=== PATIENT | male | born 1935 | race Caucasian/White ===

== ENCOUNTER 2018-10-09 16:12 | Inpatient (IN) | payer MEDICARE, MEDICAID ==
[~2018-10-09] VITALS: Ht 157.5 cm; Wt 93.0 kg
[2018-10-09 20:00] VITALS: BP 107/72
--- NOTE | 2018-10-09 20:00 | NUR ---
NURSE NOTES: Pt arrived via ACLS[facility]BLS ambulance from [facility]. Pt is awake, AOx4. In no acute distress. Pt is being admitted for hypoglycemia and AMS. VS stable. Placed on threat monitoring analyst which shows NSR. Denies any pain or discomfort at this time. Oriented pt to room and unit. Bed in lowest position. Call light within reach. Will notify MD for admission orders.
[2018-10-09] MEDS ORDERED: ASPIR 8181 MG ORAL (21:10)
[2018-10-09] MEDS ORDERED: calcium (21:10)
[2018-10-09] MEDS ORDERED: DOCUSATE SODIU100 MG ORAL (21:10)
[2018-10-09] MEDS ORDERED: DEXILANT30 MG ORAL (21:10)
[2018-10-09] MEDS ORDERED: LISINOPRIL2.5 MG ORAL (21:10)
[2018-10-09] MEDS ORDERED: SIMVASTATIN20 MG ORAL (21:10)
[2018-10-09] MEDS ORDERED: METOLAZONE5 MG PO (21:10)
[2018-10-09] MEDS ORDERED: FUROSEMIDE80 M1 ORAL (21:10)
[2018-10-09] MEDS ORDERED: CLOPIDOGREL75 MG ORAL (21:10)
[2018-10-09] MEDS ORDERED: CALCIUM OYSTER PO (21:10)
[2018-10-09] MEDS ORDERED: LUMIGAN2.5 ML BOTH EYES (21:10)
[2018-10-09] MEDS ORDERED: Norco 5mg/325mg tab ORAL PRN (22:45)
[2018-10-09] MEDS ORDERED: Albuterol/Ipratropium 3ml neb HHN SCH (23:00)
[2018-10-09] MEDS ORDERED: Albuterol/Ipratropium 3ml neb HHN PRN (23:15)
[2018-10-09] MEDS: Furosemide 80mg tab ORAL SCH (23:38)
[2018-10-10] VITALS: BP 101/55
[2018-10-10 04:00] VITALS: BP 105/69
[2018-10-10] MEDS: NovoLOG Insulin Flexpen SUBQ SCH ×4 (07:19→21:00)
--- NOTE | 2018-10-10 07:19 | NUR ---
NURSE NOTES: Checked blood glucose with AM nurse, result was "Critically Low", checked again with same glucometer with same result. Gave D50% as ordered. Pt is awake, AOx4. Asymptomatic. AM nurse will notify MD. Will continue to monitor.
--- NOTE | 2018-10-10 07:20 | NUR ---
HAND-OFF: Report given to JACQUI Vicente.
[2018-10-10 07:49] LABS: BASOPHILS % (AUTO) 0.8 % (0.0-2.0); EOSINOPHILS % (AUTO) 0.6 % (0.0-3.0); HEMATOCRIT 32.5 % (42.0-52.0); HEMOGLOBIN 9.9 G/DL (14.2-18.0); LYMPHOCYTES % (AUTO) 20.9 % (20.0-45.0); MEAN CORPUSCULAR VOLUME 85 FL (80-99); NEUTROPHILS % (AUTO) 68.7 % (45.0-75.0); PLATELET COUNT 446 K/UL (150-450); RED BLOOD COUNT 3.82 M/UL (4.70-6.10); RED CELL DISTRIBUTION WIDTH 19.4 % (11.6-14.8); WHITE BLOOD COUNT 7.7 K/UL (4.8-10.8)
[2018-10-10 08:00] VITALS: BP 112/47
[2018-10-10 08:00] LABS: ANION GAP 9 mmol/L (5-15); BLOOD UREA NITROGEN 67 mg/dL (7-18); CALCIUM 8.9 MG/DL (8.5-10.1); CARBON DIOXIDE 27 MMOL/L (21-32); CHLORIDE 99 MMOL/L (98-107); CREATININE 2.2 MG/DL (0.55-1.30); PHOSPHORUS 4.8 MG/DL (2.5-4.9); POTASSIUM 3.8 MMOL/L (3.5-5.1); SODIUM 135 MMOL/L (136-145)
--- NOTE | 2018-10-10 08:09 | NUR ---
NURSE NOTES: attending Physician changed to dr heidi Ellsworth aware.
--- NOTE | 2018-10-10 08:10 | NUR ---
NURSE NOTES: Received report from JACQUI Stewart. Patient in bed resting, no active cardiac, respiratory distress noticed at this time. BS checked on bedside. Critically low, dextrose 50ml given. Patient asymptomatic, alert, orient x4. SR with 1st degress HB, BBB. IV site asymptomatic , patent, intact. Bed in lowest position, side rails up x2, call light within reach. Will continue to monitor.
[2018-10-10] MEDS: Aspirin EC 81mg tab ORAL SCH (08:34)
[2018-10-10] MEDS: Tums 500mg ORAL SCH ×2 (08:34→18:36)
[2018-10-10] MEDS: Docusate 100mg cap ORAL SCH ×2 (08:34→18:37)
[2018-10-10] MEDS: Heparin 5000 units/ml inj SUBQ SCH ×2 (08:36→20:33)
[2018-10-10] MEDS: Lisinopril 2.5mg tab ORAL SCH (08:37)
--- NOTE | 2018-10-10 08:50 | NUR ---
NURSE NOTES: Dr. Ellsworth made aware patient BS critically low at 0730 and 50 ml of dextrose given. Per Dr. Ellsworth, D10 at 40ml/hr. Order noted, entered, and carried out. Dr. Hastings made aware BS at 0730 was critically low and 50 ml of dextrose given, random glucose result 32, BS at 0850 was 117. D10 at 40ml/hr is administered. Dr. Ellsworth and Dr. Key made aware troponin level 10/10/18 is 0.077. No order given at this time. Will continue to monitor.
[2018-10-10] MEDS ORDERED: Dextrose 10% 1,000 ML IV SCH (09:00)
[2018-10-10] MEDS: Furosemide 80mg tab ORAL SCH ×2 (09:00→18:39)
--- NOTE | 2018-10-10 09:00 | NUR ---
NURSE NOTES: Per Dr. Key do not administer diabetic medication . Order noted, carried out. Will continue to monitor.
--- NOTE | 2018-10-10 10:24 | Diagnostic Imaging Report ---
EXAM: XR Chest, 1 View CLINICAL HISTORY: SOB TECHNIQUE: Frontal view of the chest. COMPARISON: No relevant prior studies available. FINDINGS: Lungs: Hypoventilatory lungs. Mild vascular congestion. Bibasilar lung atelectasis/airspace disease. Pleural space: Small bilateral pleural effusions. No pneumothorax. Heart: Mild cardiomegaly. Mediastinum: Unremarkable. Bones/joints: Unremarkable. IMPRESSION: 1. Hypoventilatory lungs. Mild vascular congestion. Bibasilar lung atelectasis/airspace disease. 2. Small bilateral pleural effusions. 3. Likely mild CHF.
--- NOTE | 2018-10-10 10:39 | Cardiology Progress Note ---
Assessment/Plan Assessment/Plan appears to have been taking amaryl but now sudden decrease in bs will keep off amaryl endocrine to see tomorrow accucheck q4h hypoglycemia protochol other meds will be continued will dc metolazone i doubt minor trop is of any major issue recent office echo last week mod to sever mr , mod tr amd ef 40% ekg not changed form priror will consider mri of brain a isaias face looks more abn than usual mri of brain as hji face look more asymmetric than ususll [id number] Objective Last 24 Hour Vital Signs Date Time Temp Pulse Resp B/P (MAP) Pulse Ox O2 Delivery O2 Flow Rate FiO2 10/10/18 08:37 117/47 10/10/18 07:59 88 18 Nasal Cannula 2.0 28 10/10/18 04:00 87 10/10/18 04:00 98.0 87 17 105/69 (81) 98 10/10/18 01:37 92 18 98 Nasal Cannula 2.0 28 10/10/18 01:32 91 18 Nasal Cannula 2.0 28 10/10/18 01:29 91 18 93 Nasal Cannula 2.0 28 10/10/18 00:00 96 10/10/18 00:00 97.0 96 17 101/55 (70) 98 10/09/18 20:04 92 10/09/18 20:00 97.8 92 17 107/72 (84) 96 10/09/18 20:00 Nasal Cannula 3.0 Intake and Output 10/09/18 10/10/18 18:59 06:59 Output Total 300 ml Balance -300 ml Output Urine Total 300 ml Laboratory Tests Test 10/10/18 06:55 White Blood Count 7.7 K/UL (4.8-10.8) Red Blood Count 3.82 M/UL (4.70-6.10) L Hemoglobin 9.9 G/DL (14.2-18.0) L Hematocrit 32.5 % (42.0-52.0) L Mean Corpuscular Volume 85 FL (80-99) Mean Corpuscular Hemoglobin 26.0 PG (27.0-31.0) L Mean Corpuscular Hemoglobin Concent 30.6 G/DL (32.0-36.0) L Red Cell Distribution Width 19.4 % (11.6-14.8) H Platelet Count 446 K/UL (150-450) Mean Platelet Volume 5.1 FL (6.5-10.1) L Neutrophils (%) (Auto) 68.7 % (45.0-75.0) Lymphocytes (%) (Auto) 20.9 % (20.0-45.0) Monocytes (%) (Auto) 9.0 % (1.0-10.0) Eosinophils (%) (Auto) 0.6 % (0.0-3.0) Basophils (%) (Auto) 0.8 % (0.0-2.0) Sodium Level 135 MMOL/L (136-145) L Potassium Level 3.8 MMOL/L (3.5-5.1) Chloride Level 99 MMOL/L (98-107) Carbon Dioxide Level 27 MMOL/L (21-32) Anion Gap 9 mmol/L (5-15) Blood Urea Nitrogen 67 mg/dL (7-18) H Creatinine 2.2 MG/DL (0.55-1.30) H Estimat Glomerular Filtration Rate mL/min (>60) Glucose Level 32 MG/DL (74-106) *L Calcium Level 8.9 MG/DL (8.5-10.1) Phosphorus Level 4.8 MG/DL (2.5-4.9) Magnesium Level 2.3 MG/DL (1.8-2.4) Troponin I 0.077 ng/mL (0.000-0.056) Dg Key MD Oct 10, 2018 10:39
--- NOTE | 2018-10-10 11:32 | General Progress Note ---
Assessment/Plan Problem List: (1) CKD (chronic kidney disease) ICD Codes: N18.9 - Chronic kidney disease, unspecified SNOMED: 909180469 (2) Hypoglycemia ICD Codes: E16.2 - Hypoglycemia, unspecified SNOMED: 151743327 (3) Altered mental status ICD Codes: R41.82 - Altered mental status, unspecified SNOMED: 096044943 Assessment/Plan hypoglycemia is due to Amaryl - its half life being prolonged due to CKD continue IV dextrose until BG reaches > 200 then stop discontinue Amaryl and do not resume as OP consider Januvia 25 mg daily for DM management as OP ( do not start until hypoglycemia is completely resolved) Subjective Allergies: Coded Allergies: PENICILLINS (Verified Allergy, Unknown, 10/09/18) All Systems: reviewed and negative except above Subjective pleasant man presented to [facility] with severe hypoglycemia his diabetic and taking Amaryl 2 mg daily transferred to [facility] and currently being treated with D10 at 40 / hour Cr is elevated at 2.2 Objective Last 24 Hour Vital Signs Date Time Temp Pulse Resp B/P (MAP) Pulse Ox O2 Delivery O2 Flow Rate FiO2 10/10/18 09:00 Nasal Cannula 2.0 10/10/18 08:37 117/47 10/10/18 08:00 98.1 88 20 112/47 (68) 99 10/10/18 07:59 88 18 Nasal Cannula 2.0 28 10/10/18 04:00 87 10/10/18 04:00 98.0 87 17 105/69 (81) 98 10/10/18 01:37 92 18 98 Nasal Cannula 2.0 28 10/10/18 01:32 91 18 Nasal Cannula 2.0 28 10/10/18 01:29 91 18 93 Nasal Cannula 2.0 28 10/10/18 00:00 96 10/10/18 00:00 97.0 96 17 101/55 (70) 98 10/09/18 20:04 92 10/09/18 20:00 97.8 92 17 107/72 (84) 96 10/09/18 20:00 Nasal Cannula 3.0 Intake and Output 10/09/18 10/10/18 18:59 06:59 Output Total 300 ml Balance -300 ml Output Urine Total 300 ml Laboratory Tests 10/10/18 06:55: White Blood Count 7.7, Red Blood Count 3.82L, Hemoglobin 9.9L, Hematocrit 32.5L , Mean Corpuscular Volume 85, Mean Corpuscular Hemoglobin 26.0L, Mean Corpuscular Hemoglobin Concent 30.6L, Red Cell Distribution Width 19.4H, Platelet Count 446, Mean Platelet Volume 5.1L, Neutrophils (%) (Auto) 68.7, Lymphocytes (%) (Auto) 20.9, Monocytes (%) (Auto) 9.0, Eosinophils (%) (Auto) 0.6, Basophils (%) (Auto) 0.8, Sodium Level 135L, Potassium Level 3.8, Chloride Level 99, Carbon Dioxide Level 27, Anion Gap 9, Blood Urea Nitrogen 67H, Creatinine 2.2H, Estimat Glomerular Filtration Rate , Glucose Level 32*L, Calcium Level 8.9, Phosphorus Level 4.8, Magnesium Level 2.3, Troponin I 0.077H Height (Feet): 5 Height (Inches): 2.00 Weight (Pounds): 148 General Appearance: no apparent distress Neck: normal alignment Cardiovascular: normal rate Respiratory/Chest: no respiratory distress Abdomen: normal bowel sounds Objective Current Medications Medications (Trade) Dose Ordered Sig/Ashely Route PRN Reason Start Time Stop Time Status Last Admin Dose Admin Acetaminophen (Tylenol) 650 mg Q6H PRN ORAL Mild Pain/Temp > 100.5 10/09/18 22:45 11/08/18 22:44 Acetaminophen/ Hydrocodone Bitart ([place] 5/325) 1 tab Q6H PRN ORAL Moderate Pain (Pain Scale 4-6) 10/09/18 22:45 10/16/18 22:44 Albuterol/ Ipratropium (Albuterol/ Ipratropium) 3 ml Q4HRT PRN HHN Shortness of breath 10/09/18 23:15 10/14/18 22:59 10/10/18 01:29 Aspirin (Ecotrin) 81 mg DAILY ORAL 10/10/18 09:00 11/09/18 08:59 10/10/18 08:34 Atorvastatin Calcium (Lipitor) 40 mg BEDTIME ORAL 10/10/18 21:00 11/09/18 20:59 Calcium Carbonate (Tums) 500 mg BID ORAL 10/10/18 09:00 11/09/18 08:59 10/10/18 08:34 Clopidogrel Bisulfate (Plavix) 75 mg DAILY ORAL 10/10/18 09:00 11/09/18 08:59 10/10/18 08:34 Dextrose 1,000 ml @ 40 mls/hr Q24H IV 10/10/18 09:00 11/09/18 08:59 10/10/18 08:25 Dextrose (Dextrose 50%) 25 ml Q30M PRN IV Hypoglycemia 10/09/18 22:45 11/08/18 22:44 10/10/18 04:21 Dextrose (Dextrose 50%) 50 ml Q30M PRN IV Hypoglycemia 10/09/18 22:45 11/08/18 22:44 10/10/18 07:09 Docusate Sodium (Colace) 100 mg TWICE A DAY ORAL 10/10/18 09:00 11/09/18 08:59 10/10/18 08:34 Furosemide (Lasix) 80 mg BID ORAL 10/10/18 18:00 11/08/18 22:44 Heparin Sodium (Porcine) (Heparin 5000 units/ml) 5,000 units Q12HR SUBQ 10/10/18 09:00 11/09/18 08:59 10/10/18 08:36 Insulin Aspart (NovoLOG) BEFORE MEALS AND HS SUBQ 10/10/18 06:30 11/09/18 06:29 Lisinopril (Zestril) 2.5 mg DAILY ORAL 10/10/18 09:00 11/09/18 08:59 10/10/18 08:37 Lisinopril (Zestril) 2.5 mg DAILY ORAL 10/11/18 09:00 11/10/18 08:59 Metolazone (Zaroxolyn) 5 mg MoWeFr@0900 ORAL 10/11/18 09:00 11/10/18 08:59 Non-Formulary Medication (Non-Formulary Med) 1 ea DAILY ORAL 10/10/18 09:00 11/09/18 08:59 UNV Pantoprazole (Protonix) 40 mg DAILY ORAL 10/10/18 09:00 11/09/18 08:59 10/10/18 08:34 Pantoprazole (Protonix) 40 mg DAILY ORAL 10/11/18 09:00 11/10/18 08:59 Item Value Date Time Bedside Blood Glucose 73 mg/dl 2/3/19 1120 Bedside Blood Glucose Critically Low Result 10/10/18 0719 Bedside Blood Glucose 94 mg/dl 10/10/18 0430 Bedside Blood Glucose 112 mg/dl 10/10/18 0030 Bedside Blood Glucose 81 mg/dl 10/09/181999 Barry Schmitt MD Oct 10, 2018 11:32
[2018-10-10 12:00] VITALS: BP 101/54
--- NOTE | 2018-10-10 12:34 | NUR ---
NURSE NOTES: Dr. Key made aware troponin level 0.088. No order given yet. Will continue to monitor.
[2018-10-10 16:00] VITALS: BP 99/45
--- NOTE | 2018-10-10 16:40 | NUR ---
NURSE NOTES: Dr. Key made aware patient's BS at 1600 was critically low, dextrose 50mL given. BS at 1630 was 110. No order given at this time. Will continue to monitor. Patient AO x4, stated dull headache. Will continue to monitor.
--- NOTE | 2018-10-10 19:33 | NUR ---
HAND-OFF: Report given to JACQUI Stewart.
--- NOTE | 2018-10-10 19:34 | NUR ---
NURSE NOTES: Received report from JACQUI Vicente. Pt is awake and resting in bed. In no acute distress. IV line intact and patent. Bed in lowest position, call light within reach. Will continue plan of care.
[2018-10-10 20:00] VITALS: BP 100/49
[2018-10-10] MEDS ORDERED: Atorvastatin 20mg tab ORAL SCH (21:00)
--- NOTE | 2018-10-10 21:49 | NUR ---
NURSE NOTES: Checked Blood glucose at 1999, result was "Critically low". Rechecked with same glucometer with same result. Pt is AOx4, verbally responsive. Pt is complaining of lightheadedness. Gave D50% 50 ml as ordered. Rechecked after 15 minutes, result was 107. Pt states he "feels better". Dr. Schmitt notified. Will continue to monitor.
--- NOTE | 2018-10-10 23:30 | History and Physical Report ---
DATE OF ADMISSION: 10/09/2018 CARDIOLOGY EVALUATION ADMITTING PHYSICIAN: Dg Key M.D. REASON FOR ADMISSION: Coronary artery disease and abnormal cardiac enzymes. HISTORY OF PRESENT ILLNESS: This is an elderly gentleman, who is known to me from prior hospitalizations and office visits. The patient was seen last week for followup, was noted to have some evidence of an upper respiratory tract infection, although he has been in congestive heart failure, diabetic doses were adjusted and I got a call from the patient's yesterday that the patient was not doing well. I asked her to call the paramedics. The paramedics were summoned. They apparently found the patient to be low on sugar, IV access was not able to be established. Glucagon was administered and the patient was transported to the emergency room at [facility]. In the emergency room when I talked on two different occasions, the patient's blood sugar did improve and mentation did improve. The patient required further hospitalization and was transferred to [facility] for further evaluation and stabilization. He is really feeling fine this morning. He does not have any pain, pressure, or shortness of breath. He really wants to go home. He does admit to taking diabetic medication, which as I recall stopped on a prior occasion, but he continues to take 2 mg of on a daily basis. He tells me that a few nights ago, in the middle of night, he became sort of all sweaty likely because of hypoglycemia and his mentation was rather abnormal yesterday and that he was not walking correctly. He denies any chest pain or pressure. There is no PND. He is now laid back in bed, uses 1-1/2 pillows to sleep with. There is no orthopnea. There is no dizziness on standing. No heart pounding or palpitation. No pain, pressure, tightness, or heaviness in his chest either. PAST MEDICAL HISTORY: Extensive, he does have a history of hypertension, diabetes mellitus, prostate cancer, peripheral neuropathy, peripheral vascular disease, hyperlipidemia, aortic valve stenosis, claudication, B12 deficiency, vitamin D deficiency, cholecystitis, status post cholecystectomy, osteopenia, coronary artery disease with history of percutaneous coronary interventions, congestive heart failure, peripheral edema, diastolic heart failure, mitral regurgitation and in April 2016, he underwent a percutaneous coronary intervention and he has history of hypoalbuminemia, bilateral effusions. At that time, he had PCI to mid LAD, was noted to have no significant disease in the circumflex. No significant disease in the proximal, ostial RCA at that time. 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 FAMILY HISTORY: Negative. SOCIAL HISTORY: Never smoked. Never drank alcoholic beverages. 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 ALLERGIES: Penicillin. REVIEW OF SYSTEMS: GASTROINTESTINAL: Negative. GENITOURINARY: He denies. PULMONARY: He did have a cough last week and that seems to have resolved he thinks. CONSTITUTIONAL: No fevers or chills. He did have diaphoresis few nights ago, as mentioned. NEUROLOGIC: The patient has some dizziness that he does feel with his eyes, possibly turning towards the right all the time. MEDICATIONS: His medications that I have listed as of his office visit last week, aspirin 81 mg, Plavix 75 mg, Colace, Lumigan eye drops, Micro-K 40 tablets daily, Dexilant 60 mg daily, calcium 500 mg twice daily, metolazone 5 mg three times a week, 80 of Lasix twice a day, lisinopril 2.5 mg, and Lipitor 40 mg. PHYSICAL EXAMINATION: GENERAL: Shows to be an elderly gentleman, in no respiratory distress. He does have some facial asymmetry. HEENT: the patient has eye issue that he has had before, although I think that it maybe a little bit more than usual. LUNGS: Clear to auscultation and percussion. NECK: Supple. CARDIAC: Regular rate and rhythm. No heaves, thrills, or gallops noted. ABDOMEN: Soft, nontender. Positive bowel sounds. EXTREMITIES: There is trace edema of the lower extremities. NEUROLOGIC: He is awake, alert, responsive, and in no apparent respiratory distress. LABORATORY VALUES: Unfortunately [facility] laboratory results, I am unable to locate all of them and he did have some elements of hypotension on review of the data from [place] with blood pressure 90/41. At this point labs, his ALT of 54, AST of 97, creatinine of 1.96, his potassium of 3.9, bicarb of 21, blood sugar was 150, and BUN 63. The pH is 7.35, pCO2 of 41, pO2 of 62, and bicarbonate of 22. Chest x-ray was done, results not available. White count was 6.5, hemoglobin 11.4, and platelet count of 546. His repeat blood sugar is 142 to 191. An EKG showed sinus rhythm, right bundle-branch conduction with first-degree AV block, left posterior fascicular block being noted. His laboratories here white count 7.7, hemoglobin 9.9, and platelet count of 446. Sodium is 135, potassium 3.8, chloride 99, bicarbonate 27, BUN 67, creatinine 2.2, glucose 132 this morning. The troponin I of 0.077. ASSESSMENT AND PLAN: 1. Hypoglycemia secondary to medication. 2. Diabetes mellitus previously. 3. Coronary artery disease. 4. History of ischemic cardiomyopathy with ejection fraction of 40%. 5. Mitral regurgitation, [id number] degree on recent echocardiogram last week. 6. Moderate tricuspid regurgitation. 7. Mild pulmonary hypertension with 43 through 48. 8. Pleural effusions history. 9. Abnormal gastric endoscopy, suspicious for malignancy with submucosal resection. 10. Aortic stenosis. 11. Hyperlipidemia. 12. Prostate cancer. 13. Abnormal facial asymmetry. This patient was seen in cardiac consultation. The patient's abnormal troponin is of questionable significance in light of the fact that he has some renal insufficiency. His EKG does not appear to be changed. He has been started back on his metolazone last week because of his possible exacerbation of congestive heart failure, upper respiratory tract infection. Initially, when he presented to [place], he told me that he was not taking any diabetic medications and does not recall. I have taken him off of diabetic medication because blood sugars were okay and he seems to be back on it not part of this that you gave me in the office. Nevertheless, his diabetic medication will be on hold, Endocrine evaluation is pending to evaluate the etiology of decrease in his blood sugars despite the fact that he has been not taking diabetic medication for himself for a while. His aspirin and Plavix will be continued as well as his Lasix, lisinopril, and Lipitor. I will follow the patient along. Hopefully, he will be able to go home soon. In light of the fact that the patient's facial asymmetry appears more abnormal than before, I would consider an MRI of the brain as well. Dg Key M.D. DR: QUINTIN JOB#: [id number] CC: ALEJANDRO
[2018-10-11] VITALS (10 sets, daily range): BP systolic 62–107; BP diastolic 32–58
--- NOTE | 2018-10-11 00:30 | NUR ---
NURSE NOTES: Checked Blood glucose at 0000, result was 51. Rechecked with same glucometer, result was 55. Pt is AOx4, verbally responsive. Pt is complaining of lightheadedness. Gave D50% 50 ml as ordered. Rechecked after 15 minutes, result was 119. Will notify
--- NOTE | 2018-10-11 04:30 | NUR ---
NURSE NOTES: Checked Blood glucose at 0400, result was 54. Rechecked with same glucometer, result was 55. Pt is AOx4, verbally responsive. Pt is complaining of lightheadedness. Gave D50% 50 ml as ordered. Rechecked after 15 minutes, result was 115. Will notify
[2018-10-11] MEDS: NovoLOG Insulin Flexpen SUBQ SCH ×4 (06:29→21:00)
--- NOTE | 2018-10-11 06:30 | NUR ---
NURSE NOTES: Dr. Schmitt made aware of Pt's continuous episodes of hypoglycemia. New order to increase D10W IV to 40 cc/hr to 60 cc/hr received, read back and carried out. Will continue to monitor.
--- NOTE | 2018-10-11 06:33 | General Progress Note ---
Assessment/Plan Problem List: (1) CKD (chronic kidney disease) ICD Codes: N18.9 - Chronic kidney disease, unspecified SNOMED: 917011715 (2) Hypoglycemia ICD Codes: E16.2 - Hypoglycemia, unspecified SNOMED: 531940839 (3) Altered mental status ICD Codes: R41.82 - Altered mental status, unspecified SNOMED: 579885040 Assessment/Plan hypoglycemia is due to Amaryl - its half life being prolonged due to CKD increase D10 rate to 60 mL/hour - will stop once BG reaches > 200 mg/dL add Octreotide 50 mcg subQ every 8 hours in order to reduce insulin secretion discontinue Amaryl and do not resume as OP consider Januvia 25 mg daily for DM management as OP ( do not start until hypoglycemia is completely resolved) Subjective Allergies: Coded Allergies: PENICILLINS (Verified Allergy, Unknown, 10/09/18) All Systems: reviewed and negative except above Subjective hypoglycemia recurred last night and overnight requiring D50 Objective Last 24 Hour Vital Signs Date Time Temp Pulse Resp B/P (MAP) Pulse Ox O2 Delivery O2 Flow Rate FiO2 10/11/18 04:00 97.1 94 20 98/55 (69) 99 10/11/18 04:00 94 10/11/18 00:00 102 10/11/18 00:00 97.1 102 20 92/48 (63) 99 10/10/18 22:16 Nasal Cannula 2.0 28 10/10/18 22:16 97 Nasal Cannula 2.0 28 10/10/18 22:15 87 18 Nasal Cannula 2.0 28 10/10/18 21:00 Nasal Cannula 2.0 10/10/18 20:00 86 10/10/18 20:00 97.2 86 20 100/49 (66) 99 10/10/18 16:00 98.0 87 21 99/45 (63) 96 10/10/18 16:00 89 10/10/18 12:00 97.7 88 21 101/54 (70) 99 10/10/18 12:00 105 10/10/18 09:00 Nasal Cannula 2.0 10/10/18 08:37 117/47 10/10/18 08:00 98.1 88 20 112/47 (68) 99 10/10/18 08:00 97 10/10/18 07:59 88 18 Nasal Cannula 2.0 28 Intake and Output 10/10/18 10/11/18 19:00 07:00 Intake Total 960 ml 440 ml Output Total 1200 ml 1000 ml Balance -240 ml -560 ml Intake Oral 960 ml IV Total 440 ml Output Urine Total 1200 ml 1000 ml # Voids 3 3 Laboratory Tests 10/10/18 06:55: White Blood Count 7.7, Red Blood Count 3.82L, Hemoglobin 9.9L, Hematocrit 32.5L , Mean Corpuscular Volume 85, Mean Corpuscular Hemoglobin 26.0L, Mean Corpuscular Hemoglobin Concent 30.6L, Red Cell Distribution Width 19.4H, Platelet Count 446, Mean Platelet Volume 5.1L, Neutrophils (%) (Auto) 68.7, Lymphocytes (%) (Auto) 20.9, Monocytes (%) (Auto) 9.0, Eosinophils (%) (Auto) 0.6, Basophils (%) (Auto) 0.8, Sodium Level 135L, Potassium Level 3.8, Chloride Level 99, Carbon Dioxide Level 27, Anion Gap 9, Blood Urea Nitrogen 67H, Creatinine 2.2H, Estimat Glomerular Filtration Rate , Glucose Level 32*L, Calcium Level 8.9, Phosphorus Level 4.8, Magnesium Level 2.3, Troponin I 0.077H 10/10/18 11:20: Troponin I 0.088H 10/10/18 17:15: Glucose Level 52L Height (Feet): 5 Height (Inches): 2.00 Weight (Pounds): 148 General Appearance: no apparent distress Neck: normal alignment Cardiovascular: normal rate Respiratory/Chest: lungs clear Abdomen: normal bowel sounds Pelvis: normal external exam Objective Current Medications Medications (Trade) Dose Ordered Sig/Ashely Route PRN Reason Start Time Stop Time Status Last Admin Dose Admin Acetaminophen (Tylenol) 650 mg Q6H PRN ORAL Mild Pain/Temp > 100.5 10/09/18 22:45 11/08/18 22:44 Acetaminophen/ Hydrocodone Bitart ([place] 5/325) 1 tab Q6H PRN ORAL Moderate Pain (Pain Scale 4-6) 10/09/18 22:45 10/16/18 22:44 Albuterol/ Ipratropium (Albuterol/ Ipratropium) 3 ml Q4HRT PRN HHN Shortness of breath 2/2/19 23:15 10/14/18 22:59 10/10/18 01:29 Aspirin (Ecotrin) 81 mg DAILY ORAL 10/10/18 09:00 11/09/18 08:59 10/10/18 08:34 Atorvastatin Calcium (Lipitor) 40 mg BEDTIME ORAL 10/10/18 21:00 11/09/18 20:59 10/10/18 20:31 Calcium Carbonate (Tums) 500 mg BID ORAL 10/10/18 09:00 11/09/18 08:59 10/10/18 18:36 Clopidogrel Bisulfate (Plavix) 75 mg DAILY ORAL 10/10/18 09:00 11/09/18 08:59 10/10/18 08:34 Dextrose 1,000 ml @ 40 mls/hr Q24H IV 10/10/18 09:00 11/09/18 08:59 10/10/18 08:25 Dextrose (Dextrose 50%) 25 ml Q30M PRN IV Hypoglycemia 10/09/18 22:45 11/08/18 22:44 10/10/18 04:21 Dextrose (Dextrose 50%) 50 ml Q30M PRN IV Hypoglycemia 10/09/18 22:45 11/08/18 22:44 10/11/18 04:04 Docusate Sodium (Colace) 100 mg TWICE A DAY ORAL 10/10/18 09:00 11/09/18 08:59 10/10/18 18:37 Furosemide (Lasix) 80 mg BID ORAL 10/10/18 18:00 11/08/18 22:44 10/10/18 18:39 Heparin Sodium (Porcine) (Heparin 5000 units/ml) 5,000 units Q12HR SUBQ 10/10/18 09:00 11/09/18 08:59 10/10/18 20:33 Insulin Aspart (NovoLOG) BEFORE MEALS AND HS SUBQ 10/10/18 06:30 11/09/18 06:29 Lisinopril (Zestril) 2.5 mg DAILY ORAL 10/10/18 09:00 11/09/18 08:59 10/10/18 08:37 Lisinopril (Zestril) 2.5 mg DAILY ORAL 10/11/18 09:00 11/10/18 08:59 Metolazone (Zaroxolyn) 5 mg MoWeFr@0900 ORAL 10/11/18 09:00 11/10/18 08:59 Non-Formulary Medication (Non-Formulary Med) 1 ea DAILY ORAL 10/10/18 09:00 11/09/18 08:59 UNV Pantoprazole (Protonix) 40 mg DAILY ORAL 10/10/18 09:00 11/09/18 08:59 10/10/18 08:34 Pantoprazole (Protonix) 40 mg DAILY ORAL 10/11/18 09:00 11/10/18 08:59 Item Value Date Time Bedside Blood Glucose 115 mg/dl 10/11/18 0425 Bedside Blood Glucose 119 mg/dl 10/11/18 0020 Bedside Blood Glucose 107 mg/dl 10/10/18 2100 Glucose Level 52 MG/DL L 10/10/18 1715 Bedside Blood Glucose 73 mg/dl 10/10/18 1130 Bedside Blood Glucose 94 mg/dl 10/10/18 0430 Barry Schmitt MD Oct 11, 2018 06:33
[2018-10-11 07:04] LABS: ALANINE AMINOTRANSFERASE 39 U/L (12-78); ALBUMIN 2.4 G/DL (3.4-5.0); ALBUMIN/GLOBULIN RATIO 0.6 (1.0-2.7); ALKALINE PHOSPHATASE 108 U/L (46-116); ANION GAP 5 mmol/L (5-15); ASPARTATE AMINO TRANSFERASE 39 U/L (15-37); BILIRUBIN,TOTAL 0.7 MG/DL (0.2-1.0); BLOOD UREA NITROGEN 57 mg/dL (7-18); CALCIUM 8.6 MG/DL (8.5-10.1); CARBON DIOXIDE 32 MMOL/L (21-32); CHLORIDE 97 MMOL/L (98-107); SODIUM 134 MMOL/L (136-145)
--- NOTE | 2018-10-11 07:20 | NUR ---
HAND-OFF: Report given to JACQUI Betancur.
--- NOTE | 2018-10-11 08:25 | NUR ---
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
[2018-10-11] MEDS ORDERED: Lisinopril 2.5mg tab ORAL SCH ×2 (09:00)
[2018-10-11] MEDS ORDERED: Dextrose 10% 1,000 ML IV SCH (09:00)
--- NOTE | 2018-10-11 09:36 | NUR ---
CONCERNING MRI... PT UNABLE TO LAY FLAT ON TABLE WITH HEAD FLAT ON THE TABLE, DUE TO SEVERE BODY STIFFNESS. WHEN WE TRIED TO RAISE PATIENT'S LOWER BODY TO MAKE HEAD FLATTER, PT STATED THAT WAS TOO PAINFUL FOR HIS BACK AND DID NOT WANT TO CONTINUE ON TO START EXAM. JACQUI CARCAMO HAS BEEN INFORMED. IF YOU WISH US TO TRY AGAIN, PT WILL NEED PAIN MEDS. GONZALOB 09:00
[2018-10-11] MEDS: Furosemide 80mg tab ORAL SCH ×2 (09:45→18:24)
[2018-10-11] MEDS: Lisinopril 2.5mg tab ORAL SCH (09:50)
[2018-10-11] MEDS: Aspirin EC 81mg tab ORAL SCH (09:56)
[2018-10-11] MEDS: Tums 500mg ORAL SCH ×2 (09:56→18:24)
[2018-10-11] MEDS: Docusate 100mg cap ORAL SCH ×2 (09:57→18:24)
[2018-10-11] MEDS: Heparin 5000 units/ml inj SUBQ SCH (09:59)
[2018-10-11] MEDS: SandoSTATIN 50mcg Inj SUBQ SCH ×3 (10:38→21:00)
[2018-10-11] MEDS ORDERED: Albuterol/Ipratropium 3ml neb HHN SCH ×2 (15:28→19:00)
[2018-10-11] MEDS ORDERED: Promethazine Plain 6.25mg/5ml ORAL PRN ×2 (15:30→21:30)
[2018-10-11] MEDS ORDERED: Nitroglycerin 2% oint pkt TOPIC SCH (15:52)
--- NOTE | 2018-10-11 16:20 | NUR ---
RESPIRATORY NOTE: pH 7.317 pCO2 58.2 pO2 50.2 HCO3- 29.1 BE(B) 1.9 sO2 79.9 pt on 10L Simple Mask
--- NOTE | 2018-10-11 16:46 | Cardiology Progress Note ---
Assessment/Plan Assessment/Plan ICU LEVEL CARE 1. Hypoglycemia secondary to medication. 2. Diabetes mellitus previously. 3. Acute Respiratory inusf / hemoptysis 4. History of ischemic cardiomyopathy with ejection fraction of 40%. 5. Mitral regurgitation, [id number] degree on recent echocardiogram last week. 6. Moderate tricuspid regurgitation. 7. Mild pulmonary hypertension with 43 through 48. 8. Pleural effusions history. 9. Abnormal gastric endoscopy, suspicious for malignancy with submucosal resection. 10. Aortic stenosis. 11. Hyperlipidemia. 12. Prostate cancer. 13. Abnormal facial asymmetry. 14. CAD i was called short time ago reg tachypnea lasix ordered hhn ordered ntp ordered venous duplex ordred ekg ordered ekg not look different than prio abg ordred noted probably venoud / mixed venous will tranfer to icu for close monitoring and possibl need for intubation dr carrion will see pt discussed cxr ordered not bee none yet concerned about possibility of Pulmonary embolism in setting of acute decompensation ivf will be dcd fro nwo but at risk of recurrent hypoglycemia will need frequent bs monitoring d/w son notified him of change in statu and the possible need to for intubation repeat trop and labs ordred being drawn now not clear if mri ws evef done per rn bs after d50 and orang juice 280 then 110 no hypoglycemia documented post in light of chf hs i will dc the d5w for now lasix has been given po earlier and iv now with 500 cc uo d/w icu staff Subjective Cardiovascular: Denies: chest pain, lightheadedness, palpitations Respiratory: Reports: cough, shortness of breath Gastrointestinal/Abdominal: Denies: abdominal pain Genitourinary: Denies: burning Objective Last 24 Hour Vital Signs Date Time Temp Pulse Resp B/P (MAP) Pulse Ox O2 Delivery O2 Flow Rate FiO2 10/11/18 15:52 107/58 10/11/18 12:00 97.3 90 16 107/58 (74) 98 10/11/18 09:50 92/41 10/11/18 09:50 92/41 10/11/18 09:05 Nasal Cannula 2.0 28 10/11/18 09:04 85 18 Nasal Cannula 2.0 28 10/11/18 09:04 99 Nasal Cannula 2.0 28 10/11/18 08:30 Nasal Cannula 2.0 10/11/18 08:00 96.6 87 16 92/41 (58) 99 10/11/18 07:34 93 10/11/18 04:00 97.1 94 20 98/55 (69) 99 10/11/18 04:00 94 10/11/18 00:00 102 10/11/18 00:00 97.1 102 20 92/48 (63) 99 10/10/18 22:16 Nasal Cannula 2.0 28 10/10/18 22:16 97 Nasal Cannula 2.0 28 10/10/18 22:15 87 18 Nasal Cannula 2.0 28 10/10/18 21:00 Nasal Cannula 2.0 10/10/18 20:00 86 10/10/18 20:00 97.2 86 20 100/49 (66) 99 General Appearance: no apparent distress, other - on face mask Neck: supple Cardiovascular: normal rate, tachycardia - mildly Respiratory/Chest: rhonchi - bilaterally Abdomen: normal bowel sounds, non tender, soft Extremities: no swelling Intake and Output 10/10/18 10/11/18 18:59 06:59 Intake Total 960 ml 440 ml Output Total 1200 ml 1000 ml Balance -240 ml -560 ml Intake Oral 960 ml IV Total 440 ml Output Urine Total 1200 ml 1000 ml # Voids 3 3 Laboratory Tests Test 10/10/18 17:15 10/11/18 05:45 10/11/18 15:40 Glucose Level 52 MG/DL (74-106) L 38 MG/DL (74-106) *L Sodium Level 134 MMOL/L (136-145) L Potassium Level 3.0 MMOL/L (3.5-5.1) L Chloride Level 97 MMOL/L (98-107) L Carbon Dioxide Level 32 MMOL/L (21-32) Anion Gap 5 mmol/L (5-15) Blood Urea Nitrogen 57 mg/dL (7-18) H Creatinine 2.0 MG/DL (0.55-1.30) H Estimat Glomerular Filtration Rate mL/min (>60) Calcium Level 8.6 MG/DL (8.5-10.1) Magnesium Level 2.1 MG/DL (1.8-2.4) Total Bilirubin 0.7 MG/DL (0.2-1.0) Aspartate Amino Transf (AST/SGOT) 39 U/L (15-37) H Alanine Aminotransferase (ALT/SGPT) 39 U/L (12-78) Alkaline Phosphatase 108 U/L (46-116) Pro-B-Type Natriuretic Peptide 99619 pg/mL (0-125) H Total Protein 6.4 G/DL (6.4-8.2) Albumin 2.4 G/DL (3.4-5.0) L Globulin 4.0 g/dL Albumin/Globulin Ratio 0.6 (1.0-2.7) L Arterial Blood pH 7.342 (7.350-7.450) Arterial Blood Partial Pressure CO2 58.3 mmHg (35.0-45.0) *H Arterial Blood Partial Pressure O2 42.4 mmHg (75.0-100.0) Arterial Blood HCO3 30.9 mmol/L (22.0-26.0) H Arterial Blood Oxygen Saturation 74.8 % (95-100) *L Arterial Blood Base Excess 3.9 (-2-2) H Tee Test Positive Dg Key MD Oct 11, 2018 16:46
[2018-10-11] MEDS ORDERED: Norco 5mg/325mg tab ORAL PRN (18:45)
--- NOTE | 2018-10-11 18:50 | NUR ---
NURSE NOTES: Pt was transfered to ICU per Md request as the pt was becoming unstable gave report to Cathy
--- NOTE | 2018-10-11 18:55 | NUR ---
NURSE NOTES: Report received from JACQUI Betancur. Pt is a 83 year old male alert and oriented x 4, Thai, Guatemalan and Icelandic speaking. Patient NSR on the monitor. Pt was admitted for hypoglycemia and transferred to ICU due to abnormal ABG. Pt on simple mask and saturating at 95%. Left hand 22 gauge running D10 at 60cc/hr. Accu check Q 4hrs and skin intact . Condom cath in place and draining yellow straw urine with no apparent sediment. Patient ambulatory with assist. Aster made aware of transfer and will follow up with new orders.
[2018-10-11] MEDS: Albuterol/Ipratropium 3ml neb HHN SCH (18:58)
[2018-10-11] MEDS ORDERED: Albuterol/Ipratropium 3ml neb HHN PRN (19:00)
[2018-10-11] MEDS: Dextrose 10% 1,000 ML IV SCH (19:19)
--- NOTE | 2018-10-11 19:37 | Pulmonolgy Critical Care Note ---
Critical Care - Asmt/Plan Problems: (1) CHF (congestive heart failure) (2) CAD (coronary artery disease) (3) NSTEMI (non-ST elevated myocardial infarction) (4) Respiratory acidosis (5) Hemoptysis (6) Hypoglycemia (7) CKD (chronic kidney disease) Respiratory: monitor respiratory rate, adjust FIO2, ABG - in am, other - CT CHEST, DUPLEX, D-dimer, VQ, BiPAP 12/5, HHN's Cardiac: continue to monitor HR/BP, other - F/u cards recs, DAPT, diuresis, TTE Renal: F/U I&O, check electrolytes - and rencal function, other - SLIV, diuresis Infectious Disease: other - observe off Abx - low threshol Gastrointestinal: other - NPO while on BiPAP Endocrine: monitor blood sugar, other - F/U ENDO recs Hematologic: monitor H/H Neurologic: keep patient comfortable Prophylaxis: Protonix, Heparin Time Spent (Minutes): 40 Notes Reviewed: cardio, other - ENDO Discussed with: nurses, consultants Critical Care - Objective Last 24 Hour Vital Signs Date Time Temp Pulse Resp B/P (MAP) Pulse Ox O2 Delivery O2 Flow Rate FiO2 10/11/18 19:08 106 20 96 Nasal Cannula 2.0 28 10/11/18 19:00 105 20 Simple Mask 3.0 32 10/11/18 19:00 111 17 96/44 (61) 100 10/11/18 19:00 105 20 96 Simple Mask 3.0 32 10/11/18 19:00 96 Simple Mask 3.0 32 10/11/18 19:00 Nasal Cannula 3.0 10/11/18 19:00 119 10/11/18 19:00 3.0 32 10/11/18 18:40 97.3 107 21 88/42 (57) 99 10/11/18 15:52 107/58 10/11/18 12:00 97.3 90 16 107/58 (74) 98 10/11/18 09:50 92/41 10/11/18 09:50 92/41 10/11/18 09:05 Nasal Cannula 2.0 28 10/11/18 09:04 85 18 Nasal Cannula 2.0 28 10/11/18 09:04 99 Nasal Cannula 2.0 28 10/11/18 08:30 Nasal Cannula 2.0 10/11/18 08:00 96.6 87 16 92/41 (58) 99 10/11/18 07:34 93 10/11/18 04:00 97.1 94 20 98/55 (69) 99 10/11/18 04:00 94 10/11/18 00:00 102 10/11/18 00:00 97.1 102 20 92/48 (63) 99 10/10/18 22:16 Nasal Cannula 2.0 28 10/10/18 22:16 97 Nasal Cannula 2.0 28 10/10/18 22:15 87 18 Nasal Cannula 2.0 28 10/10/18 21:00 Nasal Cannula 2.0 10/10/18 20:00 86 10/10/18 20:00 97.2 86 20 100/49 (66) 99 Status: awake Condition: improving HEENT: atraumatic, normocephalic Lungs: rhonchi Heart: HR/BP stable Abdomen: soft, non-tender, active bowel sounds Extremities: edema - 2+ SLOANE Accucheck: 168 Blood Sugars: BS controlled Critical Care - Subjective ROS Limited/Unobtainable: Yes ICU Day: 1 Intubation Day: N/A Interval Events: 83 M h/o CHF, CAD S/P PCI, PVC, CKD and MMP Tx'd from with hypoglycemia This afternoon ? hemoptysis while suctioning ABX 7.34/58/42/30/74 ---> Tx'd to ICU for closer monitoring Trop borderline elevated Currently AFVSS ad hemodynamically stable on 3L Condition: stable IV Access: peripheral EKG Rhythm: Sinus Rhythm FI02: 28 Sputum Amount: Scant I&O: Intake and Output 10/10/18 10/11/18 19:00 07:00 Intake Total 960 ml 440 ml Output Total 1200 ml 1000 ml Balance -240 ml -560 ml Intake Oral 960 ml IV Total 440 ml Output Urine Total 1200 ml 1000 ml # Voids 3 3 CXR: PVC Labs: Laboratory Tests Test 10/11/18 05:45 10/11/18 15:40 10/11/18 16:45 Sodium Level 134 MMOL/L (136-145) L Potassium Level 3.0 MMOL/L (3.5-5.1) L Chloride Level 97 MMOL/L (98-107) L Carbon Dioxide Level 32 MMOL/L (21-32) Anion Gap 5 mmol/L (5-15) Blood Urea Nitrogen 57 mg/dL (7-18) H Creatinine 2.0 MG/DL (0.55-1.30) H Estimat Glomerular Filtration Rate mL/min (>60) Glucose Level 38 MG/DL (74-106) *L Calcium Level 8.6 MG/DL (8.5-10.1) Magnesium Level 2.1 MG/DL (1.8-2.4) Total Bilirubin 0.7 MG/DL (0.2-1.0) Aspartate Amino Transf (AST/SGOT) 39 U/L (15-37) H Alanine Aminotransferase (ALT/SGPT) 39 U/L (12-78) Alkaline Phosphatase 108 U/L (46-116) Pro-B-Type Natriuretic Peptide 27931 pg/mL (0-125) H Total Protein 6.4 G/DL (6.4-8.2) Albumin 2.4 G/DL (3.4-5.0) L Globulin 4.0 g/dL Albumin/Globulin Ratio 0.6 (1.0-2.7) L Arterial Blood pH 7.342 (7.350-7.450) Arterial Blood Partial Pressure CO2 58.3 mmHg (35.0-45.0) *H Arterial Blood Partial Pressure O2 42.4 mmHg (75.0-100.0) Arterial Blood HCO3 30.9 mmol/L (22.0-26.0) H Arterial Blood Oxygen Saturation 74.8 % (95-100) *L Arterial Blood Base Excess 3.9 (-2-2) H Tee Test Positive Troponin I 0.095 ng/mL (0.000-0.056) Chidi Bourne MD Oct 11, 2018 19:37
--- NOTE | 2018-10-11 19:47 | NUR ---
HAND-OFF: Report given to JACQUI Kilpatrick.
--- NOTE | 2018-10-11 20:00 | NUR ---
NURSE NOTES: pt awake and alert on 3l nc with o2 sat 94 o/o dr claudio in with order made
--- NOTE | 2018-10-11 20:47 | NUR ---
RESPIRATORY NOTE: placed pt on bipap with current bipap orders. no skin breakdown on facial are or around neck prior to placing pt on bipap. no resp distress noted at this time. current spo2 97%. will cont to monitor.
[2018-10-11 20:48] LABS: HEMATOCRIT 31.6 % (42.0-52.0); HEMOGLOBIN 9.5 G/DL (14.2-18.0); MEAN CORPUSCULAR VOLUME 88 FL (80-99); PLATELET COUNT 363 K/UL (150-450); RED BLOOD COUNT 3.61 M/UL (4.70-6.10); RED CELL DISTRIBUTION WIDTH 19.1 % (11.6-14.8)
[2018-10-11 20:56] LABS: WHITE BLOOD COUNT 22.8 K/UL (4.8-10.8)
[2018-10-11 20:57] LABS: ANION GAP 6 mmol/L (5-15); BLOOD UREA NITROGEN 58 mg/dL (7-18); CARBON DIOXIDE 32 MMOL/L (21-32); CHLORIDE 95 MMOL/L (98-107); CREATININE 2.1 MG/DL (0.55-1.30); POTASSIUM 3.2 MMOL/L (3.5-5.1); SODIUM 133 MMOL/L (136-145)
[2018-10-11] MEDS ORDERED: Latanoprost 0.005% Opth 2.5ml Soln BOTH EYES SCH (21:00)
[2018-10-11] MEDS: Latanoprost 0.005% Opth 2.5ml Soln BOTH EYES SCH (21:00)
[2018-10-11] MEDS ORDERED: NS 250 ML IV ONE (21:00)
[2018-10-11] MEDS ORDERED: Heparin 5000 units/ml inj SUBQ SCH (21:00)
[2018-10-11 21:08] LABS: ALANINE AMINOTRANSFERASE 33 U/L (12-78); ALBUMIN 2.4 G/DL (3.4-5.0); ALBUMIN/GLOBULIN RATIO 0.7 (1.0-2.7); ALKALINE PHOSPHATASE 99 U/L (46-116); ASPARTATE AMINO TRANSFERASE 33 U/L (15-37); BILIRUBIN,TOTAL 0.7 MG/DL (0.2-1.0)
[2018-10-11] MEDS: Atorvastatin 20mg tab ORAL SCH (21:29)
--- NOTE | 2018-10-11 22:00 | NUR ---
NURSE NOTES: pt refuse b-pap and sbp 66-9o and pt want to sit at side of bed and refuse to for vq scan dr claudio was notify with order made
[2018-10-11] MEDS ORDERED: Heparin 5000 units/ml inj IV SCH (23:00)
--- NOTE | 2018-10-11 23:21 | NUR ---
Pt refused V/Q Scan. JACQUI Kilpatrick and Dr. Bourne aware
[2018-10-12] VITALS (24 sets, daily range): BP systolic 74–169; BP diastolic 32–80
[2018-10-12] MEDS ORDERED: NS 250 ML IVPB ONE
[2018-10-12] MEDS ORDERED: Heparin 5000 units/ml inj IV SCH
--- NOTE | 2018-10-12 | NUR ---
NURSE NOTES:dr claudio and dr torres was notify regarding lab result with order made
[2018-10-12] MEDS: Heparin 25,000u/D5W 500ml 500 ML IV SCH ×2 (00:04→23:00)
[2018-10-12] MEDS: Albuterol/Ipratropium 3ml neb HHN SCH ×5 (01:14→20:26)
[2018-10-12] MEDS: Piperacillin/Tazobactam 3.375 GM in NS 110 ML IVPB SCH ×3 (01:44→17:22)
--- NOTE | 2018-10-12 02:00 | NUR ---
NURSE NOTES: sleeping at interval
[2018-10-12] MEDS: Dextrose 10% 1,000 ML IV SCH (05:46)
[2018-10-12] MEDS: SandoSTATIN 50mcg Inj SUBQ SCH ×3 (06:04→20:51)
[2018-10-12] MEDS: NovoLOG Insulin Flexpen SUBQ SCH ×4 (06:08→20:51)
--- NOTE | 2018-10-12 06:56 | General Progress Note ---
Assessment/Plan Problem List: (1) CKD (chronic kidney disease) ICD Codes: N18.9 - Chronic kidney disease, unspecified SNOMED: 930961066 (2) Hypoglycemia ICD Codes: E16.2 - Hypoglycemia, unspecified SNOMED: 312885658 (3) Altered mental status ICD Codes: R41.82 - Altered mental status, unspecified SNOMED: 809752862 Assessment/Plan hypoglycemia due to Amaryl improved and resolving after octreotide added reduce Octreotide 50 mcg subQ to every 12 hours discontinue Amaryl and do not resume as OP consider Januvia 25 mg daily for DM management as OP ( do not start until hypoglycemia is completely resolved) Subjective Allergies: Coded Allergies: PENICILLINS (Verified Allergy, Unknown, 10/09/18) Subjective transferred to ICU trop and WBC are elevated Objective Last 24 Hour Vital Signs Date Time Temp Pulse Resp B/P (MAP) Pulse Ox O2 Delivery O2 Flow Rate FiO2 10/12/18 06:00 88 26 85/32 (49) 100 10/12/18 05:00 88 26 88/32 (50) 100 10/12/18 04:42 Nasal Cannula 2.0 10/12/18 04:00 98.0 90 26 82/45 (57) 100 10/12/18 04:00 81 10/12/18 03:00 85 26 80/53 (62) 100 10/12/18 02:00 90 26 85/44 (58) 100 10/12/18 01:26 92 18 100 Nasal Cannula 2.0 28 10/12/18 01:15 86 17 98 Nasal Cannula 2.0 28 10/12/18 01:00 90 26 90/53 (65) 100 10/12/18 00:00 Nasal Cannula 2.0 10/12/18 00:00 97.6 90 26 90/53 (65) 100 10/12/18 00:00 91 10/11/18 23:00 98 26 62/39 (47) 100 10/11/18 22:00 101 25 74/32 (46) 100 10/11/18 21:00 111 17 93/58 (70) 100 10/11/18 20:45 103 26 96 Facial 40 10/11/18 20:00 119 10/11/18 20:00 Nasal Cannula 2.0 10/11/18 20:00 97.6 103 17 70/44 (53) 100 10/11/18 19:08 106 20 96 Nasal Cannula 2.0 28 10/11/18 19:00 105 20 Simple Mask 3.0 32 10/11/18 19:00 111 17 96/44 (61) 100 10/11/18 19:00 105 20 96 Simple Mask 3.0 32 10/11/18 19:00 96 Simple Mask 3.0 32 10/11/18 19:00 Nasal Cannula 3.0 10/11/18 19:00 119 10/11/18 19:00 3.0 32 10/11/18 18:40 97.3 107 21 88/42 (57) 99 10/11/18 15:52 107/58 10/11/18 12:00 97.3 90 16 107/58 (74) 98 10/11/18 09:50 92/41 10/11/18 09:50 92/41 10/11/18 09:05 Nasal Cannula 2.0 28 10/11/18 09:04 85 18 Nasal Cannula 2.0 28 10/11/18 09:04 99 Nasal Cannula 2.0 28 10/11/18 08:30 Nasal Cannula 2.0 10/11/18 08:00 96.6 87 16 92/41 (58) 99 10/11/18 07:34 93 Intake and Output 10/11/18 10/12/18 19:00 07:00 Intake Total 609.724 ml Output Total 600 ml Balance 9.724 ml IV Total 609.724 ml Output Urine Total 600 ml Laboratory Tests 10/11/18 15:40: Arterial Blood pH 7.342L, Arterial Blood Partial Pressure CO2 58.3*H, Arterial Blood Partial Pressure O2 42.4*L, Arterial Blood HCO3 30.9H, Arterial Blood Oxygen Saturation 74.8*L, Arterial Blood Base Excess 3.9H, Tee Test Positive 10/11/18 16:45: Troponin I 0.095H 10/11/18 20:15: Troponin I 1.054H, White Blood Count 22.8*H, Red Blood Count 3.61L, Hemoglobin 9.5L, Hematocrit 31.6L, Mean Corpuscular Volume 88, Mean Corpuscular Hemoglobin 26.4L, Mean Corpuscular Hemoglobin Concent 30.1L, Red Cell Distribution Width 19.1H, Platelet Count 363, Mean Platelet Volume 5.1L, Neutrophils (%) (Auto) , Lymphocytes (%) (Auto) , Monocytes (%) (Auto) , Eosinophils (%) (Auto) , Basophils (%) (Auto) , Differential Total Cells Counted 100, Neutrophils % ( Manual) 91H, Lymphocytes % (Manual) 3L, Monocytes % (Manual) 2, Eosinophils % ( Manual) 0, Basophils % (Manual) 0, Band Neutrophils 4, Platelet Estimate Adequate, Platelet Morphology Normal, Hypochromasia 1+, Anisocytosis 1+, Activated Partial Thromboplast Time 32, D-Dimer 4.49H, Sodium Level 133L, Potassium Level 3.2L, Chloride Level 95L, Carbon Dioxide Level 32, Anion Gap 6, Blood Urea Nitrogen 58H, Creatinine 2.1H, Estimat Glomerular Filtration Rate , Glucose Level 134H, Calcium Level 8.0L, Total Bilirubin 0.7, Aspartate Amino Transf (AST/SGOT) 33, Alanine Aminotransferase (ALT/SGPT) 33, Alkaline Phosphatase 99, Pro-B-Type Natriuretic Peptide 80671B, Total Protein 5.9L, Albumin 2.4L, Globulin 3.5, Albumin/Globulin Ratio 0.7L 10/12/18 06:18: Activated Partial Thromboplast Time [Pending] Height (Feet): 5 Height (Inches): 2.00 Weight (Pounds): 148 General Appearance: no apparent distress Neck: normal alignment Cardiovascular: normal rate Respiratory/Chest: decreased breath sounds Abdomen: normal bowel sounds Objective Current Medications Medications (Trade) Dose Ordered Sig/Ashely Route PRN Reason Start Time Stop Time Status Last Admin Dose Admin Acetaminophen (Tylenol) 650 mg Q6H PRN ORAL Mild Pain/Temp > 100.5 10/11/18 18:45 11/08/18 18:44 Acetaminophen/ Hydrocodone Bitart ([place] 5/325) 1 tab Q6H PRN ORAL moderate-severe pain (4-10) 10/11/18 18:45 10/16/18 18:44 Albuterol/ Ipratropium (Albuterol/ Ipratropium) 3 ml Q4H PRN HHN Shortness of breath 10/11/18 19:00 10/16/18 18:59 Albuterol/ Ipratropium (Albuterol/ Ipratropium) 3 ml Q6HRT HHN 10/11/18 19:00 10/16/18 18:59 10/12/18 01:14 Aspirin (Ecotrin) 81 mg DAILY ORAL 10/12/18 09:00 11/09/18 08:59 Atorvastatin Calcium (Lipitor) 40 mg BEDTIME ORAL 10/11/18 21:00 11/09/18 20:59 10/11/18 21:29 Barium Sulfate (Readi-Cat 2) 450 ml NOW PRN ORAL Radiology Procedure 10/11/18 19:30 10/13/18 19:28 Calcium Carbonate (Tums) 500 mg BID ORAL 10/12/18 09:00 11/09/18 08:59 Clopidogrel Bisulfate (Plavix) 75 mg DAILY ORAL 10/12/18 09:00 11/09/18 08:59 Dextrose 1,000 ml @ 60 mls/hr [id number] IV 10/11/18 18:45 11/09/18 08:59 10/12/18 05:46 Dextrose (Dextrose 50%) 25 ml Q30M PRN IV Hypoglycemia 10/11/18 18:45 11/08/18 22:44 Dextrose (Dextrose 50%) 50 ml Q30M PRN IV Hypoglycemia 10/11/18 18:45 11/08/18 22:44 Docusate Sodium (Colace) 100 mg TWICE A DAY ORAL 10/12/18 09:00 11/09/18 08:59 Furosemide (Lasix) 80 mg BID ORAL 10/12/18 09:00 11/08/18 22:44 Heparin Sodium/ Dextrose 500 ml @ 16.112 mls/ hr ADJUST PER PROTOCOL IV 10/11/18 22:30 11/10/18 22:29 10/12/18 00:04 Insulin Aspart (NovoLOG) BEFORE MEALS AND HS SUBQ 10/11/18 21:00 11/09/18 06:29 10/12/18 06:08 Latanoprost (Xalatan) 1 drop BEDTIME BOTH EYES 10/11/18 21:00 11/10/18 20:59 10/11/18 21:00 Lisinopril (Zestril) 2.5 mg DAILY ORAL 10/12/18 09:00 11/10/18 08:59 Metolazone (Zaroxolyn) 5 mg MoWeFr@0900 ORAL 10/13/18 09:00 11/10/18 08:59 Octreotide Acetate (SandoSTATIN) 50 mcg Q8HR SUBQ 10/11/18 22:00 11/10/18 07:59 10/12/18 06:04 Pantoprazole (Protonix) 40 mg ACBREAKFAST ORAL 10/12/18 06:30 11/09/18 08:59 10/12/18 06:06 Piperacillin Sod/ Tazobactam Sod 3.375 gm/Sodium Chloride 110 ml @ 27.5 mls/hr Q8H IVPB 10/12/18 01:00 10/19/18 00:59 10/12/18 01:44 Promethazine HCl (Phenergan [place]) 6.25 mg Q6H PRN ORAL For Cough 10/11/18 21:30 11/10/18 15:29 Item Value Date Time Bedside Blood Glucose 350 mg/dl H 10/12/18 0608 Bedside Blood Glucose 100 mg/dl 10/12/18 0000 Bedside Blood Glucose 125 mg/dl H 10/11/18 2100 Bedside Blood Glucose 168 mg/dl H 10/11/18 1729 Bedside Blood Glucose 126 mg/dl H 10/11/18 1206 Bedside Blood Glucose 262 mg/dl H 10/11/18 1041 Bedside Blood Glucose 115 mg/dl 10/11/18 0629 Barry Schmitt MD Oct 12, 2018 06:56
--- NOTE | 2018-10-12 07:47 | NUR ---
NURSE NOTES done am care
--- NOTE | 2018-10-12 07:49 | NUR ---
HAND-OFF: Report given to jose awan using sbar.:
--- NOTE | 2018-10-12 08:00 | NUR ---
NURSE NOTES: Received patient from JACQUI Kilpatrick. Pt is alert, oriented x4, tripoding at the moment, VSS, afebrile on 3L nasal cannula, peripheral IV's dry and intact, no skin issues, condom catheter in place. Heparin drip running at 16.112 ml/hr. Safety measures in place. will continue to monitor.
[2018-10-12] MEDS: Aspirin EC 81mg tab ORAL SCH (08:55)
[2018-10-12] MEDS: Tums 500mg ORAL SCH ×2 (08:55→17:23)
[2018-10-12] MEDS: Docusate 100mg cap ORAL SCH ×2 (08:55→17:22)
[2018-10-12] MEDS: Furosemide 80mg tab ORAL SCH ×2 (08:55→17:23)
--- NOTE | 2018-10-12 08:59 | NUR ---
RD ASSESSMENT & RECOMMENDATIONS SEE CARE ACTIVITY FOR COMPLETE ASSESSMENT DAILY ESTIMATED NEEDS: Needs based on DM, CHF/ 64.5kg 25-30 kcals/kg 1142-8547 total kcals 1-1.3 g protein/kg 65-84 g total protein 20-22 mL/kg 1638-5942 total fluid mLs NUTRITION DIAGNOSIS: Altered nutrition related lab values R/T DM w/ hypoglycemia, CHF as evidenced by critically low hypoglycemic episodes, now improved (POC 94-168), elev BNP (97075) CURRENT DIET:[facility] MED PO DIET RECOMMENDATIONS: CCHO MED, LOW NA/ texture as tolerated ADDITIONAL RECOMMENDATIONS: * Standing wt for accurate CBW, daily wts per policy (CHF dx) * 1-2 carb snacks TID to prevent hypoglycemia * Monitor lytes closely, replete as needed- on diuretics * Monitor texture modification needs: pt's dentures @ home, denies chewing deficit at this time.
[2018-10-12] MEDS ORDERED: Lisinopril 2.5mg tab ORAL SCH ×2 (09:00)
--- NOTE | 2018-10-12 09:48 | NUR ---
RADIOLOGY DEPT CHEST X-RAY DONE.-P.DYE
--- NOTE | 2018-10-12 10:00 | NUR ---
NURSE NOTES: Cleaned patient and oral care provided. VSS.
--- NOTE | 2018-10-12 11:11 | Cardiology Progress Note ---
Assessment/Plan Assessment/Plan ICU CARDIOLOGY LEVEL CARE 1. Hypoglycemia secondary to medication. 2. Diabetes mellitus previously. 3. Acute Respiratory inusf / hemoptysis 4. History of ischemic cardiomyopathy with ejection fraction of 40%. 5. Mitral regurgitation, [id number] degree on recent echocardiogram last week. 6. Moderate tricuspid regurgitation. 7. Mild pulmonary hypertension with 43 through 48. 8. Pleural effusions history. 9. Abnormal gastric endoscopy, suspicious for malignancy with submucosal resection. 10. Aortic stenosis. 11. Hyperlipidemia. 12. Prostate cancer. 13. Abnormal facial asymmetry. 14. CAD 15. hypotension 16. NSTEMI demand related vs PE related doubt acs multiple phone call over ntie with staff d/w dr claudio v/q was ordered but not done as pt unable to lay down flat he says due to back pain nto due to sob his lung exam is much improved over yest no long has rhhonci but has basilar crakles bp on the lower side but he is making urine labs are pending cxr ordered pending he is on UFH drip for presumed PE await echo to see if any new swma and pasp and rv function not yet done will d/ w tech k supplemented last nite await repeat level not on pressor yet but came close to getting over nite will need to check bp in all 4 ext ot make sure ok to follow so far in 2 ue not sig different will add serum cortisol to complete hypotension but i doubt adrenal insuf he will need to get diuretics as bp allows his sat are better as well cr reviewed has infiltrate on the right with effusion may need to consider aspiration although not febrile is on empric abx already with zosyn Subjective Cardiovascular: Denies: chest pain, lightheadedness, palpitations Respiratory: Denies: shortness of breath - better he satyass Gastrointestinal/Abdominal: Denies: abdominal pain Genitourinary: Denies: burning Subjective he ahs been sitting up in the bed dangling his legs over nite he says for his back Objective Last 24 Hour Vital Signs Date Time Temp Pulse Resp B/P (MAP) Pulse Ox O2 Delivery O2 Flow Rate FiO2 10/12/18 08:55 85/32 10/12/18 07:13 2.0 28 10/12/18 07:13 97 Nasal Cannula 2.0 28 10/12/18 07:13 78 16 Nasal Cannula 2.0 28 10/12/18 07:11 76 16 97 Nasal Cannula 2.0 28 10/12/18 07:11 77 16 97 Nasal Cannula 2.0 28 10/12/18 06:00 88 26 85/32 (49) 100 10/12/18 05:00 88 26 88/32 (50) 100 10/12/18 04:42 Nasal Cannula 2.0 10/12/18 04:00 98.0 90 26 82/45 (57) 100 10/12/18 04:00 81 10/12/18 03:00 85 26 80/53 (62) 100 10/12/18 02:00 90 26 85/44 (58) 100 10/12/18 01:26 92 18 100 Nasal Cannula 2.0 28 10/12/18 01:15 86 17 98 Nasal Cannula 2.0 28 10/12/18 01:00 90 26 90/53 (65) 100 10/12/18 00:00 Nasal Cannula 2.0 10/12/18 00:00 97.6 90 26 90/53 (65) 100 10/12/18 00:00 91 10/11/18 23:00 98 26 62/39 (47) 100 10/11/18 22:00 101 25 74/32 (46) 100 10/11/18 21:00 111 17 93/58 (70) 100 10/11/18 20:45 103 26 96 Facial 40 10/11/18 20:00 119 10/11/18 20:00 Nasal Cannula 2.0 10/11/18 20:00 97.6 103 17 70/44 (53) 100 10/11/18 19:08 106 20 96 Nasal Cannula 2.0 28 10/11/18 19:00 105 20 Simple Mask 3.0 32 10/11/18 19:00 111 17 96/44 (61) 100 10/11/18 19:00 105 20 96 Simple Mask 3.0 32 10/11/18 19:00 96 Simple Mask 3.0 32 10/11/18 19:00 Nasal Cannula 3.0 10/11/18 19:00 119 10/11/18 19:00 3.0 32 10/11/18 18:40 97.3 107 21 88/42 (57) 99 10/11/18 15:52 107/58 10/11/18 12:00 97.3 90 16 107/58 (74) 98 General Appearance: no apparent distress, alert Neck: supple Cardiovascular: normal rate Respiratory/Chest: crackles/rales - bases bialte Abdomen: normal bowel sounds, non tender, soft Extremities: trace edema Intake and Output 10/11/18 10/12/18 19:00 07:00 Intake Total 788.896 ml Output Total 600 ml Balance 188.896 ml IV Total 788.896 ml Output Urine Total 600 ml Laboratory Tests Test 10/11/18 15:40 10/11/18 16:45 10/11/18 20:15 10/12/18 06:18 Arterial Blood pH 7.342 (7.350-7.450) Arterial Blood Partial Pressure CO2 58.3 mmHg (35.0-45.0) *H Arterial Blood Partial Pressure O2 42.4 mmHg (75.0-100.0) Arterial Blood HCO3 30.9 mmol/L (22.0-26.0) H Arterial Blood Oxygen Saturation 74.8 % (95-100) *L Arterial Blood Base Excess 3.9 (-2-2) H Tee Test Positive Troponin I 0.095 ng/mL (0.000-0.056) 1.054 ng/mL (0.000-0.056) 0.975 ng/mL (0.000-0.056) White Blood Count 22.8 K/UL (4.8-10.8) *H Red Blood Count 3.61 M/UL (4.70-6.10) L Hemoglobin 9.5 G/DL (14.2-18.0) L Hematocrit 31.6 % (42.0-52.0) L Mean Corpuscular Volume 88 FL (80-99) Mean Corpuscular Hemoglobin 26.4 PG (27.0-31.0) L Mean Corpuscular Hemoglobin Concent 30.1 G/DL (32.0-36.0) L Red Cell Distribution Width 19.1 % (11.6-14.8) H Platelet Count 363 K/UL (150-450) Mean Platelet Volume 5.1 FL (6.5-10.1) L Neutrophils (%) (Auto) % (45.0-75.0) Lymphocytes (%) (Auto) % (20.0-45.0) Monocytes (%) (Auto) % (1.0-10.0) Eosinophils (%) (Auto) % (0.0-3.0) Basophils (%) (Auto) % (0.0-2.0) Differential Total Cells Counted 100 Neutrophils % (Manual) 91 % (45-75) H Lymphocytes % (Manual) 3 % (20-45) L Monocytes % (Manual) 2 % (1-10) Eosinophils % (Manual) 0 % (0-3) Basophils % (Manual) 0 % (0-2) Band Neutrophils 4 % (0-8) Platelet Estimate Adequate Platelet Morphology Normal Hypochromasia 1+ Anisocytosis 1+ Activated Partial Thromboplast Time 32 SEC (23-33) 92 SEC (23-33) H D-Dimer 4.49 mg/L FEU (0.00-0.49) H Sodium Level 133 MMOL/L (136-145) L Potassium Level 3.2 MMOL/L (3.5-5.1) L Chloride Level 95 MMOL/L (98-107) L Carbon Dioxide Level 32 MMOL/L (21-32) Anion Gap 6 mmol/L (5-15) Blood Urea Nitrogen 58 mg/dL (7-18) H Creatinine 2.1 MG/DL (0.55-1.30) H Estimat Glomerular Filtration Rate mL/min (>60) Glucose Level 134 MG/DL (74-106) H Calcium Level 8.0 MG/DL (8.5-10.1) L Total Bilirubin 0.7 MG/DL (0.2-1.0) Aspartate Amino Transf (AST/SGOT) 33 U/L (15-37) Alanine Aminotransferase (ALT/SGPT) 33 U/L (12-78) Alkaline Phosphatase 99 U/L (46-116) Pro-B-Type Natriuretic Peptide 23943 pg/mL (0-125) H Total Protein 5.9 G/DL (6.4-8.2) L Albumin 2.4 G/DL (3.4-5.0) L Globulin 3.5 g/dL Albumin/Globulin Ratio 0.7 (1.0-2.7) L Dg Key MD Oct 12, 2018 11:11
[2018-10-12 11:20] LABS: HEMATOCRIT 29.3 % (42.0-52.0); HEMOGLOBIN 8.9 G/DL (14.2-18.0); MEAN CORPUSCULAR VOLUME 87 FL (80-99); PLATELET COUNT 319 K/UL (150-450); RED BLOOD COUNT 3.38 M/UL (4.70-6.10); RED CELL DISTRIBUTION WIDTH 19.8 % (11.6-14.8); WHITE BLOOD COUNT 18.7 K/UL (4.8-10.8)
[2018-10-12 11:34] LABS: ALANINE AMINOTRANSFERASE 37 U/L (12-78); ALBUMIN 2.7 G/DL (3.4-5.0); ALBUMIN/GLOBULIN RATIO 0.7 (1.0-2.7); ALKALINE PHOSPHATASE 86 U/L (46-116); ANION GAP 10 mmol/L (5-15); ASPARTATE AMINO TRANSFERASE 44 U/L (15-37); BILIRUBIN,TOTAL 1.1 MG/DL (0.2-1.0); BLOOD UREA NITROGEN 56 mg/dL (7-18); CALCIUM 8.2 MG/DL (8.5-10.1); CARBON DIOXIDE 25 MMOL/L (21-32); CHLORIDE 92 MMOL/L (98-107); CREATININE 2.4 MG/DL (0.55-1.30); POTASSIUM 4.4 MMOL/L (3.5-5.1); SODIUM 127 MMOL/L (136-145)
[2018-10-12 11:35] LABS: BILIRUBIN,DIRECT 0.5 MG/DL (0.0-0.3)
--- NOTE | 2018-10-12 12:00 | NUR ---
NURSE NOTES: patient sitting upright in chair. VSS. will continue plan of care
--- NOTE | 2018-10-12 12:03 | Diagnostic Imaging Report ---
Indication: Chest pain Comparison: 10/10/2018 A single view chest radiograph was obtained. Findings: Patchy bilateral airspace consolidation demonstrated new at the right lung base. There are probable small bilateral pleural effusions. The heart is enlarged. Bones are slightly osteopenic. Aorta is mildly calcified. IMPRESSION: New fairly extensive infiltrate at the right lung base. Given abrupt onset with the no significant disease in this location on the prior day, would consider aspiration pneumonia.
--- NOTE | 2018-10-12 12:16 | Diagnostic Imaging Report ---
Indication: Chest pain Comparison: 10/11/2018 A single view chest radiograph was obtained. Findings: Some breakup of the dense right basal consolidation noted with some improvement suggestion day. The heart remains enlarged. Left basal infiltrate also noted. Small bilateral pleural effusions are likely present also. IMPRESSION: Asymmetrical infiltrates. Some improvement on the right
--- NOTE | 2018-10-12 13:31 | Cardiology Report ---
APPROVED REPORT EXAM: Two-dimensional and M-mode echocardiogram with Doppler and color Doppler. INDICATION Congestive Heart Failure M-Mode DIMENSIONS IVSd0.9 (0.7-1.1cm)Left Atrium (MM)4.0 (1.6-4.0cm) LVDd6.1 (3.5-5.6cm)Aortic Root2.4 (2.0-3.7cm) PWd0.8 (0.7-1.1cm)Aortic Cusp Exc.1.1 (1.5-2.0cm) IVSs1.3 cm LVDs4.9 (2.5-4.0cm) PWs1.1 cm Mild Global left ventricular hypokinesis mainly akinesis of the posterior and inferior velázquez and inferior septum . Mild left ventricular enlargement . Left ventricular ejection fraction estimated to be 35-40%. No evidence of left ventricular hypertrophy by 2-D. No evidence of pericardial effusion. All other cardiac chamber sizes are within normal limits. Mild aortic valve sclerosis with adequate cusp excursion. Thickened mitral valve leaflets with normal excursion. Annulus and aortic root calcification. Pulmonic valve not well visualized. IVC dilated at 2.4cm without physiologic collapse suggestive of increased RA pressure. A color flow and spectral Doppler study was performed and revealed: Mild aortic insufficiency . Mitral inflow velocities indicates possible pseudo normalization pattern implying moderately elevated left atrial pressure (Grade II ). Moderate to severe mitral regurgitation. Mild tricuspid regurgitation. Tricuspid systolic velocities suggests peak right ventricular systolic pressure of 54 mmHg,consistent with moderate pulmonary hypertension .
--- NOTE | 2018-10-12 13:33 | NUR ---
Social Service Note SW spoke with patient's son Leonel Gann [phone]. Prior to admission patient lives home with his . Patient was independent with ADLS and didn't require the use of DME. Patient's PMD is Dr. Key and patient was last seen in his office about a week ago. Family would like patient to return home upon discharge. Home Health not following patient at home. Patient is a full code and doesn't have an advance directive. Anticipated dc home once medically appropriate.
--- NOTE | 2018-10-12 13:42 | Cardiology Report ---
APPROVED REPORT EKG Measurement Heart [id number] CO [id number] sinus with pvc Right superior axis deviation Nonspecific intraventricular block Abnormal ECG
--- NOTE | 2018-10-12 14:00 | NUR ---
NURSE NOTES: Patient ate majority of breakfast and lunch. VSS. will continue plan of care
--- NOTE | 2018-10-12 14:15 | Diagnostic Imaging Report ---
APPROVED REPORT CPT Code: 71231 Present Symptoms BILATERAL: Imaging reveals a patent deep venous system bilaterally. There is no evidence of thrombus within the femoral, popliteal or tibial segments. The greater saphenous veins are also within normal limits. Doppler indicates normal spontaneous flow within these segments.
--- NOTE | 2018-10-12 14:39 | Pulmonolgy Critical Care Note ---
Critical Care - Asmt/Plan Problems: (1) CHF (congestive heart failure) (2) CAD (coronary artery disease) (3) NSTEMI (non-ST elevated myocardial infarction) (4) Respiratory acidosis (5) Hemoptysis (6) Hypoglycemia (7) Pneumonia (8) Hypotension (9) Elevated d-dimer (10) Acute kidney injury superimposed on CKD Respiratory: monitor respiratory rate, adjust FIO2 - Titrate to keep SaO2 > 92% , other - HHN's, continue IVUH, declines VQ - encourage when willing Cardiac: other - F/U TTE, diuresis per cards Renal: other - SLIV, diuresis as able, monitor Cr, F/U renal recs Infectious Disease: check cultures, continue antibiotics - Zosyn D2, other - Monitor WCt Gastrointestinal: other - PO as tolerated Endocrine: monitor blood sugar, other - F/U endo recs, F/U cortisol Hematologic: monitor H/H Prophylaxis: Protonix, other - IVUH Disposition: transfer to - [facility] Time Spent (Minutes): 40 Notes Reviewed: rubber block layer, cardio Discussed with: nurses, consultants Critical Care - Objective Last 24 Hour Vital Signs Date Time Temp Pulse Resp B/P (MAP) Pulse Ox O2 Delivery O2 Flow Rate FiO2 10/12/18 13:00 90 26 88/59 (69) 100 10/12/18 12:59 Nasal Cannula 2.0 28 10/12/18 12:59 Nasal Cannula 2.0 28 10/12/18 12:00 85 10/12/18 12:00 Nasal Cannula 2.0 10/12/18 12:00 98.0 92 26 91/45 (60) 100 10/12/18 11:00 88 26 85/50 (62) 100 10/12/18 10:00 95 26 93/49 (64) 100 10/12/18 09:00 88 26 88/42 (57) 100 10/12/18 08:55 85/32 10/12/18 08:00 98.0 90 26 90/45 (60) 100 10/12/18 08:00 Nasal Cannula 2.0 10/12/18 08:00 82 10/12/18 07:13 2.0 28 10/12/18 07:13 97 Nasal Cannula 2.0 28 10/12/18 07:13 78 16 Nasal Cannula 2.0 28 10/12/18 07:11 76 16 97 Nasal Cannula 2.0 28 10/12/18 07:11 77 16 97 Nasal Cannula 2.0 28 10/12/18 07:00 85 26 92/40 (57) 100 10/12/18 06:00 88 26 85/32 (49) 100 10/12/18 05:00 88 26 88/32 (50) 100 10/12/18 04:42 Nasal Cannula 2.0 10/12/18 04:00 98.0 90 26 82/45 (57) 100 10/12/18 04:00 81 10/12/18 03:00 85 26 80/53 (62) 100 10/12/18 02:00 90 26 85/44 (58) 100 10/12/18 01:26 92 18 100 Nasal Cannula 2.0 28 10/12/18 01:15 86 17 98 Nasal Cannula 2.0 28 10/12/18 01:00 90 26 90/53 (65) 100 10/12/18 00:00 Nasal Cannula 2.0 10/12/18 00:00 97.6 90 26 90/53 (65) 100 10/12/18 00:00 91 10/11/18 23:00 98 26 62/39 (47) 100 10/11/18 22:00 101 25 74/32 (46) 100 10/11/18 21:00 111 17 93/58 (70) 100 10/11/18 20:45 103 26 96 Facial 40 10/11/18 20:00 119 10/11/18 20:00 Nasal Cannula 2.0 10/11/18 20:00 97.6 103 17 70/44 (53) 100 10/11/18 19:08 106 20 96 Nasal Cannula 2.0 28 10/11/18 19:00 105 20 Simple Mask 3.0 32 10/11/18 19:00 111 17 96/44 (61) 100 10/11/18 19:00 105 20 96 Simple Mask 3.0 32 10/11/18 19:00 96 Simple Mask 3.0 32 10/11/18 19:00 Nasal Cannula 3.0 10/11/18 19:00 119 10/11/18 19:00 3.0 32 10/11/18 18:40 97.3 107 21 88/42 (57) 99 10/11/18 15:52 107/58 Status: awake Condition: improving HEENT: other - JVD to AoM Lungs: rales - BiB Heart: HR/BP stable Abdomen: soft, non-tender, active bowel sounds Extremities: edema - trace, cyanosis - no, clubbing - no Accucheck: 198 Blood Sugars: BS controlled Critical Care - Subjective ROS Limited/Unobtainable: Yes ICU Day: 2 Intubation Day: On NC - stable @ 2L Interval Events: D-dimer elevated, declined VQ, unable to do CT-A, duplex neg per report but final pending Trop plateaued, now downtrending Started empirically on IVUH Awaiting TTE BP low - received IVF with some improvement + DAVY Onur PO Condition: stable IV Access: peripheral EKG Rhythm: Sinus Rhythm FI02: 28 Sputum Amount: None Fluids: SLIV Drips: IVUH I&O: Intake and Output 10/11/18 10/12/18 19:00 07:00 Intake Total 788.896 ml Output Total 650 ml Balance 138.896 ml IV Total 788.896 ml Output Urine Total 650 ml Subjective: + SOB + cough no CP no FC no NVDC onur PO CXR: B infiltrates, PVC and small effusions Labs: Laboratory Tests Test 10/11/18 15:40 10/11/18 16:45 10/11/18 20:15 10/12/18 06:18 Arterial Blood pH 7.342 (7.350-7.450) Arterial Blood Partial Pressure CO2 58.3 mmHg (35.0-45.0) *H Arterial Blood Partial Pressure O2 42.4 mmHg (75.0-100.0) Arterial Blood HCO3 30.9 mmol/L (22.0-26.0) H Arterial Blood Oxygen Saturation 74.8 % (95-100) *L Arterial Blood Base Excess 3.9 (-2-2) H Tee Test Positive Troponin I 0.095 ng/mL (0.000-0.056) 1.054 ng/mL (0.000-0.056) 0.975 ng/mL (0.000-0.056) White Blood Count 22.8 K/UL (4.8-10.8) *H 18.7 K/UL (4.8-10.8) H Red Blood Count 3.61 M/UL (4.70-6.10) L 3.38 M/UL (4.70-6.10) L Hemoglobin 9.5 G/DL (14.2-18.0) L 8.9 G/DL (14.2-18.0) L Hematocrit 31.6 % (42.0-52.0) L 29.3 % (42.0-52.0) L Mean Corpuscular Volume 88 FL (80-99) 87 FL (80-99) Mean Corpuscular Hemoglobin 26.4 PG (27.0-31.0) L 26.2 PG (27.0-31.0) L Mean Corpuscular Hemoglobin Concent 30.1 G/DL (32.0-36.0) L 30.2 G/DL (32.0-36.0) L Red Cell Distribution Width 19.1 % (11.6-14.8) H 19.8 % (11.6-14.8) H Platelet Count 363 K/UL (150-450) 319 K/UL (150-450) Mean Platelet Volume 5.1 FL (6.5-10.1) L 5.4 FL (6.5-10.1) L Neutrophils (%) (Auto) % (45.0-75.0) % (45.0-75.0) Lymphocytes (%) (Auto) % (20.0-45.0) % (20.0-45.0) Monocytes (%) (Auto) % (1.0-10.0) % (1.0-10.0) Eosinophils (%) (Auto) % (0.0-3.0) % (0.0-3.0) Basophils (%) (Auto) % (0.0-2.0) % (0.0-2.0) Differential Total Cells Counted 100 100 Neutrophils % (Manual) 91 % (45-75) H 85 % (45-75) H Lymphocytes % (Manual) 3 % (20-45) L 2 % (20-45) L Monocytes % (Manual) 2 % (1-10) 4 % (1-10) Eosinophils % (Manual) 0 % (0-3) 0 % (0-3) Basophils % (Manual) 0 % (0-2) 0 % (0-2) Band Neutrophils 4 % (0-8) 9 % (0-8) H Platelet Estimate Adequate Adequate Platelet Morphology Normal Normal Hypochromasia 1+ 2+ Anisocytosis 1+ 2+ Activated Partial Thromboplast Time 32 SEC (23-33) 92 SEC (23-33) H D-Dimer 4.49 mg/L FEU (0.00-0.49) H Sodium Level 133 MMOL/L (136-145) L 127 MMOL/L (136-145) L Potassium Level 3.2 MMOL/L (3.5-5.1) L 4.4 MMOL/L (3.5-5.1) Chloride Level 95 MMOL/L (98-107) L 92 MMOL/L (98-107) L Carbon Dioxide Level 32 MMOL/L (21-32) 25 MMOL/L (21-32) Anion Gap 6 mmol/L (5-15) 10 mmol/L (5-15) Blood Urea Nitrogen 58 mg/dL (7-18) H 56 mg/dL (7-18) H Creatinine 2.1 MG/DL (0.55-1.30) H 2.4 MG/DL (0.55-1.30) H Estimat Glomerular Filtration Rate mL/min (>60) mL/min (>60) Glucose Level 134 MG/DL (74-106) H 353 MG/DL (74-106) #H Calcium Level 8.0 MG/DL (8.5-10.1) L 8.2 MG/DL (8.5-10.1) L Total Bilirubin 0.7 MG/DL (0.2-1.0) 1.1 MG/DL (0.2-1.0) H Aspartate Amino Transf (AST/SGOT) 33 U/L (15-37) 44 U/L (15-37) H Alanine Aminotransferase (ALT/SGPT) 33 U/L (12-78) 37 U/L (12-78) Alkaline Phosphatase 99 U/L (46-116) 86 U/L (46-116) Pro-B-Type Natriuretic Peptide 14584 pg/mL (0-125) H Total Protein 5.9 G/DL (6.4-8.2) L 6.4 G/DL (6.4-8.2) Albumin 2.4 G/DL (3.4-5.0) L 2.7 G/DL (3.4-5.0) L Globulin 3.5 g/dL 3.7 g/dL Albumin/Globulin Ratio 0.7 (1.0-2.7) L 0.7 (1.0-2.7) L Magnesium Level 2.0 MG/DL (1.8-2.4) Direct Bilirubin 0.5 MG/DL (0.0-0.3) H Test 10/12/18 11:40 Cortisol Pending Chidi Bourne MD Oct 12, 2018 14:39
--- NOTE | 2018-10-12 15:36 | Consultation ---
Consult Note Assessment/Plan Renal consult dictated # [id number] Mario Porter MD Oct 12, 2018 15:36
--- NOTE | 2018-10-12 18:06 | NUR ---
CASE MANAGEMENT: REVIEW 83/M DAVID FROM CC: AMS SI: HYPOGLYCEMIA . CKD . T 97.8 HR 92 RR 17 BP 107/72 SAT 96% NC/3L GLUCOSE 32 NA 135 IS: D50 IVF BOLUS X1 PATIENT ADMITTED TO ICU 10/09/2018 DCP: PATIENT IS FROM
--- NOTE | 2018-10-12 18:30 | Consultation ---
DATE OF CONSULTATION: 10/12/2018 NEPHROLOGY CONSULTATION CONSULTING PHYSICIAN: Mario Porter M.D. REFERRING PHYSICIAN: Dg Key M.D. REASON FOR CONSULTATION: Acute on chronic renal failure. HISTORY OF PRESENT ILLNESS: This is an 83-year-old, white male, who is known to me from previous admission to [facility] a couple of years ago. The patient has a history of CKD. He was admitted to [place]. Apparently, the patient had some respiratory tract infections recently and the patient was not doing well so paramedics were called. The patient was still having low blood sugars. He was transferred to [facility] and then transferred here to [place]. In any event, he is in the ICU. He was found to be in congestive heart failure, was diuresed. 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 On 10/10/2018 BUN was 67, creatinine of 2.2 and today is the BUN is 56, and creatinine 2.4. Looking back at the [facility] records as of 08/27/2018 the BUN was 95 and creatinine 1.9. The patient has been diuresing well, has had 2200 mL urine yesterday and he is asking me when he can go home. PAST MEDICAL HISTORY: Includes history of acute cholecystitis. The patient has bilateral pleural effusion status post thoracentesis, history of shock with hypotension, hypercarbia, diastolic CHF acute on chronic in the past, also systolic dysfunction, history of systemic inflammatory response syndrome (SIRS) history of prostate cancer, anasarca. MEDICATIONS: Reviewed in the EMR. SOCIAL HISTORY: There is no history of smoking. No history of alcohol abuse. 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 ALLERGIES: Reported to penicillin. REVIEW OF SYSTEMS: Noncontributory except what was mentioned. PHYSICAL EXAMINATION: GENERAL: The patient is elderly male, in no acute distress. VITAL SIGNS: Blood pressure is 88/59, pulse is 90, respirations 26, temperature is 98. HEENT: Somewhat pale conjunctivae. Anicteric sclerae. NECK: Supple. LUNGS: Coarse breath sounds bilaterally. HEART: S1 and S2 without murmurs or rubs. ABDOMEN: Soft and nontender. EXTREMITIES: Bilateral pedal edema. LABORATORY FINDINGS: CBC shows a WBC of 18,700, hematocrit 29.3, hemoglobin is 8.9, platelets 319,000. Chemistry panel shows a sodium 127, potassium 4.4, chloride 92, BUN is 56, creatinine 2.4, blood sugar is 353. Magnesium is 2.0. Albumin 2.7. The blood gas as of yesterday showed a pH of 7.34, pCO2 of 58, and pO2 of 42. ASSESSMENT: This is an 83-year-old male with a history of chronic kidney disease which appears to be slightly worse than before so he has acute on chronic, cardiorenal syndrome is a possibility. The patient could have developed acute tubular necrosis as a result of low blood pressure. He may have been somewhat over diuresed. He likely has atherosclerotic kidney disease at a baseline. He has also systolic as well as diastolic heart failure. His blood pressure still is borderline. He makes good amount of urine. PLAN: Currently the patient is getting 80 mg of Lasix twice a day p.o. as well as metolazone. Renal output needs to be followed closely as well BUN and creatinine. It is not clear if this is cardiorenal or if the patient has ATN as mentioned. If indeed the patient has cardiorenal syndrome, his serum creatinine actually improved with administration of diuretics; however, the therapeutic window is narrow because of his low blood pressure at this point. We will consider putting patient on inotrope if that is okay with Dr. Key. In terms of overall workup for his CKD, he needs to have a PTH to make sure the patient does not have any secondary hyperparathyroidism, also vitamin D needs to be checked. He may need to be on some activated vitamin D. I will follow and make further recommendations based on hospital course and findings. Thank you very much, Dr. Key for this consultation. Mario Porter M.D. DR: Ned JOB#: [id number] CC: ALEJANDRO
--- NOTE | 2018-10-12 19:00 | NUR ---
NURSE NOTES: Received patient from JACQUI Escalante. Pt is alert, oriented x4, tripoding at the moment, VSS, afebrile on 2L nasal cannula, peripheral IV's dry and intact, no skin issues, condom catheter in place. Heparin drip running at 16.112 ml/hr. next ptt on 10/13 at 0400. Safety measures in place. will continue to monitor.
--- NOTE | 2018-10-12 19:06 | NUR ---
HAND-OFF: Report given to JACQUI Samuel. VSS.
--- NOTE | 2018-10-12 20:00 | NUR ---
NURSE NOTES: Patient on chair in tripod position leaning on table resting, bedside table secured to floor and bed. Patient states that this is best position for optimal breathing. Patient remains on Nasal cannula at 2L with sPo2 at 100%, however patient does not show signs of labored breathing while in the non-tripod position, patient can verbalized conversation without labored breathing.
[2018-10-12] MEDS: Atorvastatin 20mg tab ORAL SCH (20:50)
[2018-10-12] MEDS: Latanoprost 0.005% Opth 2.5ml Soln BOTH EYES SCH (20:50)
--- NOTE | 2018-10-12 22:00 | NUR ---
NURSE NOTES: Patient remains calm and collected. In tripod position, NC at 2L, SpO2 100%, RR 22-28, NAD.
--- NOTE | 2018-10-12 23:00 | NUR ---
NURSE NOTES: Patient assisted onto commode, medium size BM, casper martinez.
[2018-10-13] VITALS (32 sets, daily range): BP systolic 80–113; BP diastolic 27–64
--- NOTE | 2018-10-13 | NUR ---
NURSE NOTES: Patient remains sitting on chair/tripod position. Remains on NC 2 L, RR 22-24, SOB with exertion, BP remains on the lower side, see BP logs, afebrile, IV lines remains patent and intact.
--- NOTE | 2018-10-13 00:19 | Physician Query ---
--------- THIS DOCUMENT IS A PERMANENT PART OF THE MEDICAL RECORD --------- PLEASE COMPLETE DOCUMENT BEFORE SIGNING Dear Dr. GANDHI Date: __10/12/18_ Phone Screener/CDS Name: _Amada BURNETT_ Phone Screener/CDS Phone No.: Exercise your independent professional judgment when responding to the query. Questions asked do not imply a particular answer is desired or expected. We greatly appreciate your clarification on this issue. CLINICAL DOCUMENTATION STATES: "NSTEMI" - documented in Dr. oBurne's PN on 10/11/18 "NSTEMI DEMAND RELATED vs PE RELATED" - documented in Dr. Key's PN on CLINICAL FINDINGS SHOW: TROPONIN ON ADMISSION - 0.077, 0.088 ng/ml Clarification is needed for one (or more) of the following conditions in order to accurately assign the "present on admission' indicator. Please choose the answer that best indicates whether the associated condition was present at the time of the order for inpatient admission. Thank you. DIAGNOSIS:NSTEMI Was the NSTEMI Present on admission? [] YES [] NO [] Clinically Undeterminable Please also document in your Progress Notes and/or Discharge Summary and indicate if the condition was present on admission. MODESTA KEY M.D. DATE & TIME [facility]
--- NOTE | 2018-10-13 00:31 | Physician Query ---
--------- THIS DOCUMENT IS A PERMANENT PART OF THE MEDICAL RECORD --------- PLEASE COMPLETE THE FORM BEFORE SIGNING Dear Dr. GANDHI Date __10/12/18___ [employer]/CDS _Richard BURNETT____ [employer]/CDS Phone #: Exercise your independent professional judgment when responding to query. Questions asked do not imply particular answer is desired or expected. We greatly appreciate your clarification on this issue. Clinical Documentation States: "Acute Respiratory inusf; will tranfer to icu for close monitoring and possibl need for intubation " documented in Dr. Key's PN on 10/11/18 Clinical Findings Show: ABG:pCO2 58.3, pO2 42.4, O2Sat 74.8 RR:24-26/MIN on 2nd hospital day (10/11/18) Please clarify if the patient had any of the following conditions based on the above clinical findings: []Respiratory Failure [] Acute [] Chronic (on home O2) []Acute on Chronic [] Acute Respiratory Distress [] Acute Respiratory Insufficiency [] Respiratory failure due to trauma [] Respiratory insufficiency due to trauma [] Unable to determine [] Other: Condition Present on Admission: [] Yes [] No []Clinically Undeterminable Please also document in your Progress Notes and/or Discharge Summary and indicate if the condition was present on admission. Dg Key's Date & Time MTDD
[2018-10-13] MEDS: Piperacillin/Tazobactam 3.375 GM in NS 110 ML IVPB SCH ×3 (00:40→17:51)
[2018-10-13] MEDS: NovoLOG Insulin Flexpen SUBQ SCH ×6 (01:00→21:03)
[2018-10-13] MEDS: Albuterol/Ipratropium 3ml neb HHN SCH ×4 (01:22→19:00)
--- NOTE | 2018-10-13 02:00 | NUR ---
NURSE NOTES: Assisted patient to bed, in high-fowlers position. Remains on NC 2L. Abx running, heparin gtt remains running, patient remains alert and oriented to person, place, purpose and time. External urinary catheter remains patent and draining to gravity, below waist line.
--- NOTE | 2018-10-13 04:00 | NUR ---
NURSE NOTES: Patient remains stable, patient in bed with NC at 2L, 12 lead EKG done, in chart. Patients BP still on the lower side, but asymptomatic.
[2018-10-13 05:41] LABS: HEMATOCRIT 30.3 % (42.0-52.0); HEMOGLOBIN 9.2 G/DL (14.2-18.0); MEAN CORPUSCULAR VOLUME 86 FL (80-99); PLATELET COUNT 331 K/UL (150-450); RED BLOOD COUNT 3.53 M/UL (4.70-6.10); RED CELL DISTRIBUTION WIDTH 20.2 % (11.6-14.8); WHITE BLOOD COUNT 13.3 K/UL (4.8-10.8)
--- NOTE | 2018-10-13 06:00 | NUR ---
NURSE NOTES: Patient reposition and pillows adjusted. NAD, Vitals remains stable. PTT 95, no rate change, next PTT on 02/11 at 0400. Patient moved to chair.
[2018-10-13 06:34] LABS: ANION GAP 11 mmol/L (5-15); BLOOD UREA NITROGEN 68 mg/dL (7-18); CARBON DIOXIDE 27 MMOL/L (21-32); CHLORIDE 92 MMOL/L (98-107); CREATININE 2.5 MG/DL (0.55-1.30); SODIUM 130 MMOL/L (136-145)
[2018-10-13] MEDS ORDERED: Heparin 2000 units/Ns 1000ml INJ PRN (09:00)
--- NOTE | 2018-10-13 09:08 | Pulmonolgy Critical Care Note ---
Critical Care - Asmt/Plan Problems: (1) CHF (congestive heart failure) (2) CAD (coronary artery disease) (3) NSTEMI (non-ST elevated myocardial infarction) (4) Respiratory acidosis (5) Hemoptysis (6) Hypoglycemia (7) Pneumonia (8) Hypotension (9) Elevated d-dimer (10) Acute kidney injury superimposed on CKD Respiratory: monitor respiratory rate, adjust FIO2 - Titrate down FiO2 to keep SaO2 > 90%, CXR, other - HHNs, pulm hygiene, IVUH, VQ Cardiac: continue to monitor HR/BP, other - D/W cards and renal: will start Dobut gtt and attempt to diurese. DAPT, medical management per cards Renal: F/U I&O, check electrolytes, other - Monitor renal function with diuresis. F/U renal recs Infectious Disease: check cultures, continue antibiotics - Zosyn D3 Gastrointestinal: other - PO as reanna, asp prec Endocrine: monitor blood sugar, continue sliding scale insulin, oral diabetic meds - Amaryl held, octreotide per endo, other - F/U ENDO recs, F/U cortisol Hematologic: monitor H/H Neurologic: keep patient comfortable Prophylaxis: Protonix, Heparin - IVUH (until VQ done) Disposition: keep in ICU Time Spent (Minutes): 40 Notes Reviewed: [employer], cardio, renal, other - EDNO Discussed with: nurses, consultants Critical Care - Objective Last 24 Hour Vital Signs Date Time Temp Pulse Resp B/P (MAP) Pulse Ox O2 Delivery O2 Flow Rate FiO2 10/13/18 08:00 83 10/13/18 08:00 Nasal Cannula 2.0 10/13/18 08:00 93 26 80/64 (69) 94 10/13/18 07:44 28 10/13/18 07:44 Nasal Cannula 10/13/18 07:44 Nasal Cannula 2.0 28 10/13/18 07:44 98 Nasal Cannula 2.0 28 10/13/18 07:44 Nasal Cannula 2.0 28 10/13/18 07:00 80 24 94/37 (56) 100 10/13/18 06:00 83 24 94/34 (54) 100 10/13/18 05:00 84 20 86/41 (56) 100 10/13/18 04:00 Nasal Cannula 2.0 10/13/18 04:00 87 10/13/18 04:00 98.2 88 20 90/45 (60) 100 10/13/18 03:00 87 20 89/39 (56) 100 10/13/18 02:00 92 22 84/50 (61) 100 10/13/18 01:23 88 18 100 Nasal Cannula 2.0 28 10/13/18 01:10 85 18 99 Nasal Cannula 2.0 28 10/13/18 01:00 86 24 94/49 (64) 100 10/13/18 00:00 99.0 85 22 81/35 (50) 100 10/13/18 00:00 82 10/13/18 00:00 Nasal Cannula 2.0 10/12/18 23:00 88 28 74/50 (58) 100 10/12/18 22:00 95 26 99/47 (64) 100 10/12/18 21:00 89 24 96/38 (57) 100 10/12/18 20:00 Nasal Cannula 2.0 28 10/12/18 20:00 98 Nasal Cannula 2.0 28 10/12/18 20:00 Nasal Cannula 2.0 10/12/18 20:00 90 18 Nasal Cannula 2.0 28 10/12/18 20:00 96 18 100 Nasal Cannula 2.0 28 10/12/18 20:00 88 10/12/18 20:00 98.6 87 21 88/74 (79) 100 10/12/18 19:50 94 18 99 Nasal Cannula 2.0 28 10/12/18 19:00 92 22 97/42 (60) 100 10/12/18 18:00 95 26 90/36 (54) 100 10/12/18 17:00 95 26 92/70 (77) 100 10/12/18 16:00 Nasal Cannula 2.0 10/12/18 16:00 91 10/12/18 16:00 98.1 92 26 100/45 (63) 100 10/12/18 15:00 90 26 95/62 (73) 100 10/12/18 14:00 92 26 90/59 (69) 100 10/12/18 13:00 90 26 88/59 (69) 100 10/12/18 12:59 Nasal Cannula 2.0 28 10/12/18 12:59 Nasal Cannula 2.0 28 10/12/18 12:00 85 10/12/18 12:00 Nasal Cannula 2.0 10/12/18 12:00 98.0 92 26 91/45 (60) 100 10/12/18 11:00 88 26 85/50 (62) 100 10/12/18 10:00 95 26 93/49 (64) 100 10/12/18 09:00 88 26 88/42 (57) 100 Status: awake Condition: improving HEENT: atraumatic, normocephalic Lungs: rales - @ bases Heart: HR/BP unstable Abdomen: soft, non-tender, active bowel sounds Extremities: no C/C/E Accucheck: 115 Blood Sugars: BS controlled Critical Care - Subjective ROS Limited/Unobtainable: Yes ICU Day: 3 Interval Events: SBP 80-90, stable on 2L NC UO 540, diuretics held by RN 2/2 low BP WCt better, trop downtrending, Cr worse, on hep gtt Condition: stable IV Access: peripheral EKG Rhythm: Sinus Rhythm FI02: 28 Sputum Amount: None Fluids: SLIV Drips: IVUH I&O: Intake and Output 10/12/18 10/13/18 19:00 07:00 Intake Total 708.344 ml 458.342 ml Output Total 490 ml 400 ml Balance 218.344 ml 58.342 ml Intake Oral 350 ml 100 ml IV Total 358.344 ml 358.342 ml Output Urine Total 490 ml 400 ml # Bowel Movements 2 2 Subjective: + SOB + cough no CP no FC no NVDC reanna PO Labs: Laboratory Tests Test 10/12/18 11:40 10/13/18 04:10 Cortisol Pending White Blood Count 13.3 K/UL (4.8-10.8) H Red Blood Count 3.53 M/UL (4.70-6.10) L Hemoglobin 9.2 G/DL (14.2-18.0) L Hematocrit 30.3 % (42.0-52.0) L Mean Corpuscular Volume 86 FL (80-99) Mean Corpuscular Hemoglobin 26.2 PG (27.0-31.0) L Mean Corpuscular Hemoglobin Concent 30.5 G/DL (32.0-36.0) L Red Cell Distribution Width 20.2 % (11.6-14.8) H Platelet Count 331 K/UL (150-450) Mean Platelet Volume 5.6 FL (6.5-10.1) L Neutrophils (%) (Auto) % (45.0-75.0) Lymphocytes (%) (Auto) % (20.0-45.0) Monocytes (%) (Auto) % (1.0-10.0) Eosinophils (%) (Auto) % (0.0-3.0) Basophils (%) (Auto) % (0.0-2.0) Activated Partial Thromboplast Time 95 SEC (23-33) H Sodium Level 130 MMOL/L (136-145) L Potassium Level 4.0 MMOL/L (3.5-5.1) Chloride Level 92 MMOL/L (98-107) L Carbon Dioxide Level 27 MMOL/L (21-32) Anion Gap 11 mmol/L (5-15) Blood Urea Nitrogen 68 mg/dL (7-18) H Creatinine 2.5 MG/DL (0.55-1.30) H Estimat Glomerular Filtration Rate mL/min (>60) Glucose Level 106 MG/DL (74-106) # Calcium Level 9.0 MG/DL (8.5-10.1) Calcium (Send out) Pending Troponin I 0.563 ng/mL (0.000-0.056) Vitamin D 25-Hydroxy Pending 25-Hydroxy Vitamin D2 Pending 25-Hydroxy Vitamin D3 Pending Parathyroid Hormone (Intact) Pending Chidi Bourne MD Oct 13, 2018 09:08
--- NOTE | 2018-10-13 09:15 | NUR ---
NURSE NOTES: Dr. Barreto updated at the bedside of patient progress, no verbal orders given at this time. will follow orders.
[2018-10-13] MEDS ORDERED: Lidocaine 1% Plain 30 ml INJ PRN (09:30)
[2018-10-13] MEDS: Docusate 100mg cap ORAL SCH ×2 (10:15→17:47)
[2018-10-13] MEDS: Tums 500mg ORAL SCH ×2 (10:15→17:49)
[2018-10-13] MEDS: Aspirin EC 81mg tab ORAL SCH (10:15)
--- NOTE | 2018-10-13 10:15 | NUR ---
NURSE NOTES: patient consented for PICC line insertion for administration of medication, such as dopamine. consent given by patient at the bedside, taken PO medication with no impairment, patient is unable to lay flat on the bed, he get sob when patient is flat within 15 seconds and begins to sit up and make gestures of having breathing issues, unable to take to CT or MRI. will continue plan of care
--- NOTE | 2018-10-13 10:21 | NUR ---
RADIOLOGY DEPT CHEST X-RAY DONE.-PD.
--- NOTE | 2018-10-13 12:00 | NUR ---
NURSE NOTES: PICC line inserted at the bedside BY Dr. Kelley on first attempt on the left upper arm, patient tolerated procedure will no distress noted, Chest x-ray taken and awaiting for verification to begin infusion of dopamine and administer Lasix PO, he denies any pain or discomfort over chest, will continue plan of care.
[2018-10-13] MEDS: SandoSTATIN 50mcg Inj SUBQ SCH ×2 (12:04→21:02)
--- NOTE | 2018-10-13 12:25 | Nephrology Progress Note ---
Assessment/Plan Problem List: (1) Acute kidney injury superimposed on CKD Assessment: no significant change. cardiorenal vs ATN. (2) CHF (congestive heart failure) (3) NSTEMI (non-ST elevated myocardial infarction) (4) Hypotension (5) Pneumonia (6) Hypoglycemia Plan would continue diuretics start Inotropes Discussed with Dr Bourne and Dr Key follow labs Discussed with RN Subjective Subjective In NAD Objective Objective Last 24 Hour Vital Signs Date Time Temp Pulse Resp B/P (MAP) Pulse Ox O2 Delivery O2 Flow Rate FiO2 10/13/18 11:00 92 33 109/57 (74) 100 10/13/18 10:00 90 24 91/42 (58) 98 10/13/18 09:00 98.7 88 20 91/57 (68) 96 10/13/18 08:00 83 10/13/18 08:00 Nasal Cannula 2.0 10/13/18 08:00 93 26 80/64 (69) 94 10/13/18 07:44 28 10/13/18 07:44 Nasal Cannula 10/13/18 07:44 Nasal Cannula 2.0 28 10/13/18 07:44 98 Nasal Cannula 2.0 28 10/13/18 07:44 Nasal Cannula 2.0 28 10/13/18 07:00 80 24 94/37 (56) 100 10/13/18 06:00 83 24 94/34 (54) 100 10/13/18 05:00 84 20 86/41 (56) 100 10/13/18 04:00 Nasal Cannula 2.0 10/13/18 04:00 87 10/13/18 04:00 98.2 88 20 90/45 (60) 100 10/13/18 03:00 87 20 89/39 (56) 100 10/13/18 02:00 92 22 84/50 (61) 100 10/13/18 01:23 88 18 100 Nasal Cannula 2.0 28 10/13/18 01:10 85 18 99 Nasal Cannula 2.0 28 10/13/18 01:00 86 24 94/49 (64) 100 10/13/18 00:00 99.0 85 22 81/35 (50) 100 10/13/18 00:00 82 10/13/18 00:00 Nasal Cannula 2.0 10/12/18 23:00 88 28 74/50 (58) 100 2/5/19 22:00 95 26 99/47 (64) 100 10/12/18 21:00 89 24 96/38 (57) 100 10/12/18 20:00 Nasal Cannula 2.0 28 10/12/18 20:00 98 Nasal Cannula 2.0 28 10/12/18 20:00 Nasal Cannula 2.0 10/12/18 20:00 90 18 Nasal Cannula 2.0 28 10/12/18 20:00 96 18 100 Nasal Cannula 2.0 28 10/12/18 20:00 88 10/12/18 20:00 98.6 87 21 88/74 (79) 100 10/12/18 19:50 94 18 99 Nasal Cannula 2.0 28 10/12/18 19:00 92 22 97/42 (60) 100 10/12/18 18:00 95 26 90/36 (54) 100 10/12/18 17:00 95 26 92/70 (77) 100 10/12/18 16:00 Nasal Cannula 2.0 10/12/18 16:00 91 10/12/18 16:00 98.1 92 26 100/45 (63) 100 10/12/18 15:00 90 26 95/62 (73) 100 10/12/18 14:00 92 26 90/59 (69) 100 10/12/18 13:00 90 26 88/59 (69) 100 10/12/18 12:59 Nasal Cannula 2.0 28 10/12/18 12:59 Nasal Cannula 2.0 28 Intake and Output 10/12/18 10/13/18 19:00 07:00 Intake Total 708.344 ml 458.342 ml Output Total 490 ml 400 ml Balance 218.344 ml 58.342 ml Intake Oral 350 ml 100 ml IV Total 358.344 ml 358.342 ml Output Urine Total 490 ml 400 ml # Bowel Movements 2 2 Laboratory Tests 10/13/18 04:10: White Blood Count 13.3H, Red Blood Count 3.53L, Hemoglobin 9.2L, Hematocrit 30.3L, Mean Corpuscular Volume 86, Mean Corpuscular Hemoglobin 26.2L, Mean Corpuscular Hemoglobin Concent 30.5L, Red Cell Distribution Width 20.2H, Platelet Count 331, Mean Platelet Volume 5.6L, Neutrophils (%) (Auto) , Lymphocytes (%) (Auto) , Monocytes (%) (Auto) , Eosinophils (%) (Auto) , Basophils (%) (Auto) , Activated Partial Thromboplast Time 95H, Sodium Level 130L, Potassium Level 4.0, Chloride Level 92L, Carbon Dioxide Level 27, Anion Gap 11, Blood Urea Nitrogen 68H, Creatinine 2.5H, Estimat Glomerular Filtration Rate , Glucose Level 106#, Calcium Level 9.0, Calcium (Send out) [Pending], Troponin I 0.563H, Vitamin D 25-Hydroxy [Pending], 25-Hydroxy Vitamin D2 [ Pending], 25-Hydroxy Vitamin D3 [Pending], Parathyroid Hormone (Intact) [Pending ] Height (Feet): 5 Height (Inches): 2.00 Weight (Pounds): 148 Cardiovascular: normal rate Respiratory/Chest: rhonchi - bilaterally Extremities: moderate edema Mario Porter MD Oct 13, 2018 12:25
--- NOTE | 2018-10-13 12:39 | Diagnostic Imaging Report ---
Indication: terminal operator venous access Findings: After the indications, procedure, risks, complications, and alternatives of the procedure were explained, written informed consent was obtained. The left upper extremity was prepped with alcohol. All elements of maximal sterile barrier technique were followed including usage of a cap, mask, sterile gown, sterile gloves, hand hygiene and a large sterile sheet. Sonographic evaluation of the upper extremity was performed demonstrating a patent and compressible brachial vein. Access was obtained under real-time ultrasound guidance (with utilization of sterile gel and sterile probe cover) and digital image was saved and archived. An .018 wire was introduced. Needle exchanged for a 5 [place] peel-away sheath. Measurements were obtained. A 5 [place] dual-lumen Power PICC line catheter was cut to 40 cm and introduced over the wire. Peel-away sheath and wire were removed.Catheter was secured to the skin using 2-0 Prolene suture. Both ports aspirate and flush easily. Post procedure chest x-ray demonstrates good position of the PICC line catheter within the SVC. Impression: Successful placement of an upper extremity PICC line catheter
--- NOTE | 2018-10-13 13:01 | NUR ---
NURSE NOTES: Dr. Porter updated on [patient condition at the bedside, no verbal orders given at this time.
[2018-10-13] MEDS: DOBUTamine 250mg/250ml Premix 250 ML IV SCH (13:05)
[2018-10-13] MEDS: Heparin 25,000u/D5W 500ml 500 ML IV SCH (13:15)
[2018-10-13] MEDS: Furosemide 80mg tab ORAL SCH ×2 (13:16→17:50)
--- NOTE | 2018-10-13 13:21 | Diagnostic Imaging Report ---
Indication: Dyspnea Comparison: 10/12/2018 A single view chest radiograph was obtained. Findings: Cardiomegaly, blunting of both costophrenic angles and somewhat ill-defined mixed interstitial alveolar opacities noted throughout the lungs especially in the lower lung tejada. This appears slightly worse compared to the previous day and is probably on the basis of CHF. Superimposed infiltrates not excluded. The bones are unremarkable. IMPRESSION: Worsening interstitial edema/CHF. Correlate clinically
--- NOTE | 2018-10-13 14:00 | NUR ---
NURSE NOTES: Left upper PICC line verified with Chest X-ray per radiologist, Dopamine started at 5mcg/kg/min for BP and renal function, heparin remains at 16.112 ml/hr, TKO remains on right hand for antibiotics, will continue to monitor.
[2018-10-13] MEDS ORDERED: NS 500ML ONE (15:27)
--- NOTE | 2018-10-13 16:00 | NUR ---
NURSE NOTES: Patient transferred to be with minimal assistance 2/, he is able to stand and walk with steady gait to bed, patient remains alert and awake to name, he remains attempting to get rest. he remains on 2L/min nasal cannula saturating at 97-100%, will continue plan of care.
--- NOTE | 2018-10-13 18:00 | NUR ---
NURSE NOTES: Patient is able to ambulate with minimum assistance to bedside chair, remains on Nasal Cannula at 2L/min saturating at 97-100% with non-labored breathing, he denies any pain over chest, currently infusing Dopamine at 5mcg/kg/min and heparin drip, through left upper arm PICC line, he remains awake and alert to name and place, he remains able to take po medication,
--- NOTE | 2018-10-13 19:29 | NUR ---
HAND-OFF: Report given to JACQUI Samuel. patient remains on dopamine and heparin drip on left upper arm PIcc line.
[2018-10-13] MEDS: Dyna-Hex 2% Top Sol 2oz TOPIC SCH (20:00)
--- NOTE | 2018-10-13 20:00 | NUR ---
NURSE NOTES: Dr. Key at bedside assessing patient. Patient complains of back pain, patient says that the reason he sleeps in tripod position, and not because of SOB. Patient does well while of O2 therapy cannula. MD to place patient on 2.5mcg and leave it there. NAD
--- NOTE | 2018-10-13 20:17 | Cardiology Progress Note ---
Assessment/Plan Assessment/Plan ICU CARDIOLOGY LEVEL CARE 1. Hypoglycemia secondary to medication. 2. Diabetes mellitus previously. 3. Acute Respiratory inusf / hemoptysis 4. History of ischemic cardiomyopathy with ejection fraction of 40%. 5. Mitral regurgitation, oucvvnlg-gh-[id number] degree on recent echocardiogram last week. 6. Moderate tricuspid regurgitation. 7. Mild pulmonary hypertension with 43 through 48. 8. Pleural effusions history. 9. Abnormal gastric endoscopy, suspicious for malignancy with submucosal resection. 10. Aortic stenosis. 11. Hyperlipidemia. 12. Prostate cancer. 13. Abnormal facial asymmetry. 14. CAD 15. hypotension 16. NSTEMI demand related vs PE related doubt acs d/w dr claudio v/q was ordered but not done as pt unable to lay down flat he says due to back pain nto due to sob lung sound clear bp on the lower side but he is making urine noted cr relative stable cxr reviewed on my redign righ sided infiltrate he is on UFH drip for presumed PE we started on dobutamin await cortisol to complete hypotension but i doubt adrenal insuf his sat are better as well i just checked his sta room gabino 98% would treat for pneumonia for now keep on dobutamine but debby to 2.5 mcg now follow cr as his uo is low will not diurese now his room air sat now 98% -100 %!!!! min fluid bolus if bp drops d/w dr claudio keep in icu Subjective Cardiovascular: Denies: chest pain, lightheadedness Respiratory: Denies: shortness of breath Gastrointestinal/Abdominal: Denies: abdominal pain Genitourinary: Denies: burning Subjective sitting up in the bed dangling his legs over nite still , he says for his back Objective Last 24 Hour Vital Signs Date Time Temp Pulse Resp B/P (MAP) Pulse Ox O2 Delivery O2 Flow Rate FiO2 10/13/18 20:03 Nasal Cannula 10/13/18 20:02 Nasal Cannula 2.0 28 10/13/18 20:02 100 Nasal Cannula 2.0 28 10/13/18 20:02 97 25 100 Nasal Cannula 2.0 28 10/13/18 19:00 99 24 88/56 (67) 100 10/13/18 18:30 104 23 88/41 (57) 100 10/13/18 18:00 103 27 108/63 (78) 100 10/13/18 17:30 95 17 113/63 (80) 100 10/13/18 17:00 99 24 102/51 (68) 98 10/13/18 16:30 101 15 95/52 (66) 100 10/13/18 16:00 102 21 111/42 (65) 100 10/13/18 16:00 105 10/13/18 16:00 Nasal Cannula 2.0 10/13/18 15:30 103 19 96/48 (64) 100 10/13/18 15:00 102 21 92/37 (55) 100 10/13/18 14:30 102 14 94/37 (56) 100 10/13/18 14:00 101 23 91/32 (51) 100 10/13/18 13:45 102 17 92/35 (54) 100 10/13/18 13:30 101 14 105/29 (54) 100 10/13/18 13:15 91 19 104/27 (52) 100 10/13/18 13:05 87/50 10/13/18 13:00 Nasal Cannula 10/13/18 13:00 88 23 87/50 (62) 100 10/13/18 13:00 Nasal Cannula 10/13/18 12:00 Nasal Cannula 2.0 10/13/18 12:00 85 10/13/18 12:00 97.6 83 16 91/42 (58) 100 10/13/18 11:00 92 33 109/57 (74) 100 10/13/18 10:00 90 24 91/42 (58) 98 10/13/18 09:00 98.7 88 20 91/57 (68) 96 10/13/18 08:00 83 10/13/18 08:00 Nasal Cannula 2.0 10/13/18 08:00 93 26 80/64 (69) 94 10/13/18 07:44 28 10/13/18 07:44 Nasal Cannula 10/13/18 07:44 Nasal Cannula 2.0 28 10/13/18 07:44 98 Nasal Cannula 2.0 28 10/13/18 07:44 Nasal Cannula 2.0 28 10/13/18 07:00 80 24 94/37 (56) 100 10/13/18 06:00 83 24 94/34 (54) 100 10/13/18 05:00 84 20 86/41 (56) 100 10/13/18 04:00 Nasal Cannula 2.0 10/13/18 04:00 87 10/13/18 04:00 98.2 88 20 90/45 (60) 100 10/13/18 03:00 87 20 89/39 (56) 100 10/13/18 02:00 92 22 84/50 (61) 100 10/13/18 01:23 88 18 100 Nasal Cannula 2.0 28 10/13/18 01:10 85 18 99 Nasal Cannula 2.0 28 10/13/18 01:00 86 24 94/49 (64) 100 10/13/18 00:00 99.0 85 22 81/35 (50) 100 10/13/18 00:00 82 10/13/18 00:00 Nasal Cannula 2.0 10/12/18 23:00 88 28 74/50 (58) 100 10/12/18 22:00 95 26 99/47 (64) 100 10/12/18 21:00 89 24 96/38 (57) 100 General Appearance: no apparent distress, alert Neck: supple Cardiovascular: normal rate, regular rhythm Respiratory/Chest: lungs clear Abdomen: normal bowel sounds, non tender, soft Extremities: no swelling Intake and Output 10/12/18 10/13/18 18:59 06:59 Intake Total 680.844 ml 485.842 ml Output Total 500 ml 40 ml Balance 180.844 ml 445.842 ml Intake Oral 350 ml 100 ml IV Total 330.844 ml 385.842 ml Output Urine Total 500 ml 40 ml # Bowel Movements 2 2 Laboratory Tests Test 10/13/18 04:10 White Blood Count 13.3 K/UL (4.8-10.8) H Red Blood Count 3.53 M/UL (4.70-6.10) L Hemoglobin 9.2 G/DL (14.2-18.0) L Hematocrit 30.3 % (42.0-52.0) L Mean Corpuscular Volume 86 FL (80-99) Mean Corpuscular Hemoglobin 26.2 PG (27.0-31.0) L Mean Corpuscular Hemoglobin Concent 30.5 G/DL (32.0-36.0) L Red Cell Distribution Width 20.2 % (11.6-14.8) H Platelet Count 331 K/UL (150-450) Mean Platelet Volume 5.6 FL (6.5-10.1) L Neutrophils (%) (Auto) % (45.0-75.0) Lymphocytes (%) (Auto) % (20.0-45.0) Monocytes (%) (Auto) % (1.0-10.0) Eosinophils (%) (Auto) % (0.0-3.0) Basophils (%) (Auto) % (0.0-2.0) Activated Partial Thromboplast Time 95 SEC (23-33) H Sodium Level 130 MMOL/L (136-145) L Potassium Level 4.0 MMOL/L (3.5-5.1) Chloride Level 92 MMOL/L (98-107) L Carbon Dioxide Level 27 MMOL/L (21-32) Anion Gap 11 mmol/L (5-15) Blood Urea Nitrogen 68 mg/dL (7-18) H Creatinine 2.5 MG/DL (0.55-1.30) H Estimat Glomerular Filtration Rate mL/min (>60) Glucose Level 106 MG/DL (74-106) # Calcium Level 9.0 MG/DL (8.5-10.1) Calcium (Send out) Pending Troponin I 0.563 ng/mL (0.000-0.056) Vitamin D 25-Hydroxy Pending 25-Hydroxy Vitamin D2 Pending 25-Hydroxy Vitamin D3 Pending Parathyroid Hormone (Intact) Pending Dg Key MD Oct 13, 2018 20:17
[2018-10-13] MEDS: Latanoprost 0.005% Opth 2.5ml Soln BOTH EYES SCH (21:02)
[2018-10-13] MEDS: Atorvastatin 20mg tab ORAL SCH (21:02)
--- NOTE | 2018-10-13 22:00 | NUR ---
NURSE NOTES: Patient remains sitting in chair, patient states best position for comfort. VS stable, No acute distress, scheduled meds given.
[2018-10-14] VITALS (38 sets, daily range): BP systolic 75–112; BP diastolic 29–68
--- NOTE | 2018-10-14 | NUR ---
NURSE NOTES: Patient remains in sitting position, tripod position, lies it better that way due to chronic back pain according to patient. BP does remains on the lower side, but asymptomatic, afebrile, SR.
[2018-10-14] MEDS: NovoLOG Insulin Flexpen SUBQ SCH ×6 (01:00→20:59)
[2018-10-14] MEDS: Albuterol/Ipratropium 3ml neb HHN SCH ×4 (01:00→20:12)
[2018-10-14] MEDS: Piperacillin/Tazobactam 3.375 GM in NS 110 ML IVPB SCH ×2 (01:26→13:13)
--- NOTE | 2018-10-14 02:00 | NUR ---
NURSE NOTES: No acute events, patient remains alert and oriented, VS stable, no new changes.
[2018-10-14] MEDS: DOBUTamine 250mg/250ml Premix 250 ML IV SCH ×2 (04:00→09:38)
[2018-10-14 06:24] LABS: ALANINE AMINOTRANSFERASE 26 U/L (12-78); ALBUMIN 2.5 G/DL (3.4-5.0); ALBUMIN/GLOBULIN RATIO 0.6 (1.0-2.7); ALKALINE PHOSPHATASE 78 U/L (46-116); ANION GAP 12 mmol/L (5-15); ASPARTATE AMINO TRANSFERASE 21 U/L (15-37); BLOOD UREA NITROGEN 76 mg/dL (7-18); CALCIUM 8.2 MG/DL (8.5-10.1); CARBON DIOXIDE 27 MMOL/L (21-32); CHLORIDE 92 MMOL/L (98-107); CREATININE 2.8 MG/DL (0.55-1.30); POTASSIUM 3.8 MMOL/L (3.5-5.1); SODIUM 130 MMOL/L (136-145)
[2018-10-14] MEDS ORDERED: Heparin 5000 units/ml inj IV ONE (06:45)
[2018-10-14] MEDS: Heparin 25,000u/D5W 500ml 500 ML IV SCH ×2 (06:52→16:03)
--- NOTE | 2018-10-14 07:07 | General Progress Note ---
Assessment/Plan Problem List: (1) CKD (chronic kidney disease) ICD Codes: N18.9 - Chronic kidney disease, unspecified SNOMED: 280228491 (2) Hypoglycemia ICD Codes: E16.2 - Hypoglycemia, unspecified SNOMED: 827682355 (3) Altered mental status ICD Codes: R41.82 - Altered mental status, unspecified SNOMED: 917544348 Assessment/Plan hypoglycemia due to Amaryl improved and resolving after octreotide added continue Octreotide 50 mcg subQ every 12 hours Do not resume Amaryl after DC consider Januvia 25 mg daily for DM management as OP ( do not start until hypoglycemia is completely resolved) Subjective Allergies: Coded Allergies: PENICILLINS (Verified Allergy, Unknown, 10/09/18) All Systems: reviewed and negative except above Subjective events noted Objective Last 24 Hour Vital Signs Date Time Temp Pulse Resp B/P (MAP) Pulse Ox O2 Delivery O2 Flow Rate FiO2 10/14/18 06:00 92 25 95/54 (68) 100 10/14/18 05:00 85 20 81/32 (48) 100 10/14/18 04:00 96/47 10/14/18 04:00 102 10/14/18 04:00 Nasal Cannula 2.0 10/14/18 04:00 97.5 91 28 96/47 (63) 100 10/14/18 03:00 88 22 104/46 (65) 100 10/14/18 02:00 99 16 75/45 (55) 100 10/14/18 01:34 Nasal Cannula 10/14/18 01:34 84 16 100 Nasal Cannula 2.0 28 10/14/18 01:00 85 23 97/44 (61) 100 10/14/18 00:00 Nasal Cannula 2.0 10/14/18 00:00 98.3 87 16 89/49 (62) 100 10/14/18 00:00 88 10/13/18 23:00 97 18 94/52 (66) 100 10/13/18 22:00 93 18 104/38 (60) 100 10/13/18 21:00 95 22 90/47 (61) 100 10/13/18 20:03 Nasal Cannula 10/13/18 20:02 Nasal Cannula 2.0 28 10/13/18 20:02 100 Nasal Cannula 2.0 28 10/13/18 20:02 97 25 100 Nasal Cannula 2.0 28 10/13/18 20:00 97.9 89 28 109/47 (67) 100 10/13/18 20:00 89 10/13/18 20:00 Nasal Cannula 2.0 10/13/18 19:00 99 24 88/56 (67) 100 10/13/18 18:30 104 23 88/41 (57) 100 10/13/18 18:00 103 27 108/63 (78) 100 10/13/18 17:30 95 17 113/63 (80) 100 10/13/18 17:00 99 24 102/51 (68) 98 10/13/18 16:30 101 15 95/52 (66) 100 10/13/18 16:00 102 21 111/42 (65) 100 10/13/18 16:00 105 10/13/18 16:00 Nasal Cannula 2.0 10/13/18 15:30 103 19 96/48 (64) 100 10/13/18 15:00 102 21 92/37 (55) 100 10/13/18 14:30 102 14 94/37 (56) 100 10/13/18 14:00 101 23 91/32 (51) 100 10/13/18 13:45 102 17 92/35 (54) 100 10/13/18 13:30 101 14 105/29 (54) 100 10/13/18 13:15 91 19 104/27 (52) 100 10/13/18 13:05 87/50 10/13/18 13:00 Nasal Cannula 10/13/18 13:00 88 23 87/50 (62) 100 10/13/18 13:00 Nasal Cannula 10/13/18 12:00 Nasal Cannula 2.0 10/13/18 12:00 85 10/13/18 12:00 97.6 83 16 91/42 (58) 100 10/13/18 11:00 92 33 109/57 (74) 100 10/13/18 10:00 90 24 91/42 (58) 98 10/13/18 09:00 98.7 88 20 91/57 (68) 96 10/13/18 08:00 83 10/13/18 08:00 Nasal Cannula 2.0 10/13/18 08:00 93 26 80/64 (69) 94 10/13/18 07:44 28 10/13/18 07:44 Nasal Cannula 10/13/18 07:44 Nasal Cannula 2.0 28 10/13/18 07:44 98 Nasal Cannula 2.0 28 10/13/18 07:44 Nasal Cannula 2.0 28 Intake and Output 10/13/18 10/14/18 19:00 07:00 Intake Total 1477.044 ml 463.072 ml Output Total 100 ml 350 ml Balance 1377.044 ml 113.072 ml Intake Oral 1000 ml IV Total 477.044 ml 463.072 ml Output Urine Total 100 ml 350 ml # Bowel Movements 2 2 Laboratory Tests 10/14/18 04:00: Activated Partial Thromboplast Time 40H, Sodium Level 130L, Potassium Level 3.8 , Chloride Level 92L, Carbon Dioxide Level 27, Anion Gap 12, Blood Urea Nitrogen 76H, Creatinine 2.8H, Estimat Glomerular Filtration Rate , Glucose Level 95, Calcium Level 8.2L, Magnesium Level 2.1, Total Bilirubin 1.0, Aspartate Amino Transf (AST/SGOT) 21, Alanine Aminotransferase (ALT/SGPT) 26, Alkaline Phosphatase 78, Total Protein 6.8, Albumin 2.5L, Globulin 4.3, Albumin/ Globulin Ratio 0.6L Height (Feet): 5 Height (Inches): 2.00 Weight (Pounds): 148 General Appearance: no apparent distress Neck: normal alignment Cardiovascular: normal rate Respiratory/Chest: normal breath sounds Abdomen: normal bowel sounds Pelvis: normal external exam Objective Current Medications Medications (Trade) Dose Ordered Sig/Ashely Route PRN Reason Start Time Stop Time Status Last Admin Dose Admin Acetaminophen (Tylenol) 650 mg Q6H PRN ORAL Mild Pain/Temp > 100.5 10/11/18 18:45 11/08/18 18:44 Acetaminophen/ Hydrocodone Bitart ([place] 5/325) 1 tab Q6H PRN ORAL moderate-severe pain (4-10) 10/11/18 18:45 10/16/18 18:44 Albuterol/ Ipratropium (Albuterol/ Ipratropium) 3 ml Q4H PRN HHN Shortness of breath 10/11/18 19:00 10/16/18 18:59 Albuterol/ Ipratropium (Albuterol/ Ipratropium) 3 ml Q6HRT HHN 10/11/18 19:00 10/16/18 18:59 10/13/18 01:22 Aspirin (Ecotrin) 81 mg DAILY ORAL 10/12/18 09:00 11/09/18 08:59 10/13/18 10:15 Atorvastatin Calcium (Lipitor) 40 mg BEDTIME ORAL 10/11/18 21:00 11/09/18 20:59 10/13/18 21:02 Calcium Carbonate (Tums) 500 mg BID ORAL 10/12/18 09:00 11/09/18 08:59 10/13/18 17:49 Chlorhexidine Gluconate (Anai-Hex 2%) 1 applic DAILY@2000 TOPIC 10/13/18 20:00 11/12/18 19:59 10/13/18 20:00 Clopidogrel Bisulfate (Plavix) 75 mg DAILY ORAL 10/12/18 09:00 11/09/18 08:59 10/13/18 10:15 Dextrose (Dextrose 50%) 25 ml Q30M PRN IV Hypoglycemia 10/11/18 18:45 11/08/18 22:44 Dextrose (Dextrose 50%) 50 ml Q30M PRN IV Hypoglycemia 10/11/18 18:45 11/08/18 22:44 Dobutamine HCl 250 ml @ 0 mls/hr Q24H IV 10/13/18 09:00 11/12/18 08:59 10/14/18 04:00 Docusate Sodium (Colace) 100 mg TWICE A DAY ORAL 10/12/18 09:00 11/09/18 08:59 10/13/18 17:47 Heparin Sodium/ Dextrose 500 ml @ 21.482 mls/ hr ADJUST PER PROTOCOL IV 10/14/18 06:45 11/10/18 22:29 10/14/18 06:52 Heparin Sodium/ Sodium Chloride (Heparin 2000 units/Ns 1000ml premix) 2,000 unit ONCE PRN INJ picc line placement 10/13/18 09:00 10/14/18 08:59 Insulin Aspart (NovoLOG) EVERY 4 HOURS SUBQ 10/13/18 09:00 11/09/18 06:29 10/13/18 21:03 Latanoprost (Xalatan) 1 drop BEDTIME BOTH EYES 10/11/18 21:00 11/10/18 20:59 10/13/18 21:02 Lidocaine HCl (Xylocaine 1% 30ml) 30 ml ONCE PRN INJ picc line placement 10/13/18 09:30 10/14/18 09:29 Octreotide Acetate (SandoSTATIN) 50 mcg Q12HR SUBQ 10/12/18 09:00 11/10/18 07:59 10/13/18 21:02 Pantoprazole (Protonix) 40 mg ACBREAKFAST ORAL 10/12/18 06:30 11/09/18 08:59 10/14/18 05:51 Piperacillin Sod/ Tazobactam Sod 3.375 gm/Sodium Chloride 110 ml @ 27.5 mls/hr Q8H IVPB 10/12/18 01:00 10/19/18 00:59 10/14/18 01:26 Promethazine HCl (Phenergan [place]) 6.25 mg Q6H PRN ORAL For Cough 10/11/18 21:30 11/10/18 15:29 Item Value Date Time Bedside Blood Glucose 88 mg/dl 10/14/18 0438 Bedside Blood Glucose 110 mg/dl 10/14/18 0100 Bedside Blood Glucose 119 mg/dl 10/13/18 2103 Bedside Blood Glucose 130 mg/dl H 10/13/18 1757 Bedside Blood Glucose 156 mg/dl H 10/13/18 1326 Bedside Blood Glucose 132 mg/dl H 10/13/18 0900 Bedside Blood Glucose 115 mg/dl 10/13/18 0500 Bedside Blood Glucose 150 mg/dl H 10/13/18 0100 Barry Schmitt MD Oct 14, 2018 07:07
--- NOTE | 2018-10-14 08:15 | NUR ---
NURSE NOTES: Patient received from JACQUI Samuel. Patient is awake and alert to name and place, he has no slurred speech and answers question concisely, patient denies any pain or discomfort over the chest area, currently he is on nasal cannula at 2L/min with saturating at 96-98%, he has heparin running at 16units/kg/hr and dobutamine drip at 2.5mcg/kg/min infusing thorough left upper arm picc line, picc line remains patient with blood return with no swelling or oozing noted form Insertion site. will continue plan of care.
--- NOTE | 2018-10-14 09:15 | NUR ---
NURSE NOTES: Dr. Bourne updated on patient condition and progress at the bedside, he remains on Heparin drip at 16untis/kg/hr and dobutamine drip at 2.5mcg/kg/min running through left upper arm PICC line, patient is awake and alert to name able to communicate with no distress or slurred speech, he is breathing on 2L/min nasal cannula with saturations of 95-99%, patient agreed with dr. Bourne to attempt to have the VQ scan done today. patient is tripoding on the bedside table but denies SOB or problems breathing, will continue to monitor.
--- NOTE | 2018-10-14 09:18 | Pulmonolgy Critical Care Note ---
Critical Care - Asmt/Plan Problems: (1) CHF (congestive heart failure) (2) CAD (coronary artery disease) (3) NSTEMI (non-ST elevated myocardial infarction) (4) Respiratory acidosis (5) Hemoptysis (6) Hypoglycemia (7) Pneumonia (8) Hypotension (9) Elevated d-dimer (10) Acute kidney injury superimposed on CKD Respiratory: adjust FIO2, other - HHN's, IVUH, states willing to do VQ Cardiac: continue pressors - Dobut per cards, continue to monitor HR/BP, other - consider resuming diuretics - defer to cards Renal: check electrolytes - F/U renal recs, other - Would aim to keep as negative as able Infectious Disease: check cultures, continue antibiotics Gastrointestinal: other - PO as reanna Endocrine: monitor blood sugar, continue sliding scale insulin, oral diabetic meds - held, continue Octreotide, other - F/U ENDO recs Neurologic: keep patient comfortable Prophylaxis: Protonix, Heparin - IVUH Disposition: keep in ICU Time Spent (Minutes): 40 Notes Reviewed: art therapist, other - ENDO Discussed with: nurses, consultants Critical Care - Objective Last 24 Hour Vital Signs Date Time Temp Pulse Resp B/P (MAP) Pulse Ox O2 Delivery O2 Flow Rate FiO2 10/14/18 08:47 88 20 100 Nasal Cannula 2.0 28 10/14/18 08:10 96 Nasal Cannula 2.0 28 10/14/18 08:10 Nasal Cannula 2.0 28 10/14/18 08:10 100 22 94 Nasal Cannula 2.0 28 10/14/18 08:00 Nasal Cannula 2.0 10/14/18 08:00 87 10/14/18 08:00 97.6 92 26 85/35 (52) 96 10/14/18 07:30 88 18 94/45 (61) 96 10/14/18 07:00 88 16 82/47 (59) 100 10/14/18 06:00 92 25 95/54 (68) 100 10/14/18 05:00 85 20 81/32 (48) 100 10/14/18 04:00 96/47 10/14/18 04:00 102 10/14/18 04:00 Nasal Cannula 2.0 10/14/18 04:00 97.5 91 28 96/47 (63) 100 10/14/18 03:00 88 22 104/46 (65) 100 10/14/18 02:00 99 16 75/45 (55) 100 10/14/18 01:34 Nasal Cannula 10/14/18 01:34 84 16 100 Nasal Cannula 2.0 28 10/14/18 01:00 85 23 97/44 (61) 100 10/14/18 00:00 Nasal Cannula 2.0 10/14/18 00:00 98.3 87 16 89/49 (62) 100 10/14/18 00:00 88 10/13/18 23:00 97 18 94/52 (66) 100 10/13/18 22:00 93 18 104/38 (60) 100 10/13/18 21:00 95 22 90/47 (61) 100 10/13/18 20:03 Nasal Cannula 10/13/18 20:02 Nasal Cannula 2.0 28 10/13/18 20:02 100 Nasal Cannula 2.0 28 10/13/18 20:02 97 25 100 Nasal Cannula 2.0 28 10/13/18 20:00 97.9 89 28 109/47 (67) 100 10/13/18 20:00 89 10/13/18 20:00 Nasal Cannula 2.0 10/13/18 19:00 99 24 88/56 (67) 100 10/13/18 18:30 104 23 88/41 (57) 100 10/13/18 18:00 103 27 108/63 (78) 100 10/13/18 17:30 95 17 113/63 (80) 100 10/13/18 17:00 99 24 102/51 (68) 98 10/13/18 16:30 101 15 95/52 (66) 100 10/13/18 16:00 102 21 111/42 (65) 100 10/13/18 16:00 105 10/13/18 16:00 Nasal Cannula 2.0 10/13/18 15:30 103 19 96/48 (64) 100 10/13/18 15:00 102 21 92/37 (55) 100 10/13/18 14:30 102 14 94/37 (56) 100 10/13/18 14:00 101 23 91/32 (51) 100 10/13/18 13:45 102 17 92/35 (54) 100 10/13/18 13:30 101 14 105/29 (54) 100 10/13/18 13:15 91 19 104/27 (52) 100 10/13/18 13:05 87/50 10/13/18 13:00 Nasal Cannula 10/13/18 13:00 88 23 87/50 (62) 100 10/13/18 13:00 Nasal Cannula 10/13/18 12:00 Nasal Cannula 2.0 10/13/18 12:00 85 10/13/18 12:00 97.6 83 16 91/42 (58) 100 10/13/18 11:00 92 33 109/57 (74) 100 10/13/18 10:00 90 24 91/42 (58) 98 Status: awake Condition: improving HEENT: atraumatic, normocephalic Neck: full ROM, other - JVD to AoM Lungs: clear - x for BiB rales Heart: HR/BP unstable Abdomen: soft, non-tender, active bowel sounds Extremities: edema - 1+ SLOANE, cyanosis - no, clubbing - no Accucheck: 88 Blood Sugars: BS controlled Critical Care - Subjective ICU Day: 4 Intubation Day: N/A Interval Events: Could not do VQ On Dobut off diuretics WCt better, Cr worse Afebrile Condition: stable IV Access: PICC EKG Rhythm: Sinus Rhythm FI02: 28 Sputum Amount: None Fluids: SLIV Drips: Dobut and IVUH I&O: Intake and Output 10/13/18 10/14/18 19:00 07:00 Intake Total 1477.044 ml 494.624 ml Output Total 100 ml 350 ml Balance 1377.044 ml 144.624 ml Intake Oral 1000 ml IV Total 477.044 ml 494.624 ml Output Urine Total 100 ml 350 ml # Bowel Movements 2 2 Subjective: Denies SOB but tripoding no cough no CP no FC no NVDC reanna PO CXR: PVC and R sided infiltrates Labs: Laboratory Tests Test 10/14/18 04:00 Activated Partial Thromboplast Time 40 SEC (23-33) H Sodium Level 130 MMOL/L (136-145) L Potassium Level 3.8 MMOL/L (3.5-5.1) Chloride Level 92 MMOL/L (98-107) L Carbon Dioxide Level 27 MMOL/L (21-32) Anion Gap 12 mmol/L (5-15) Blood Urea Nitrogen 76 mg/dL (7-18) H Creatinine 2.8 MG/DL (0.55-1.30) H Estimat Glomerular Filtration Rate mL/min (>60) Glucose Level 95 MG/DL (74-106) Calcium Level 8.2 MG/DL (8.5-10.1) L Magnesium Level 2.1 MG/DL (1.8-2.4) Total Bilirubin 1.0 MG/DL (0.2-1.0) Aspartate Amino Transf (AST/SGOT) 21 U/L (15-37) Alanine Aminotransferase (ALT/SGPT) 26 U/L (12-78) Alkaline Phosphatase 78 U/L (46-116) Total Protein 6.8 G/DL (6.4-8.2) Albumin 2.5 G/DL (3.4-5.0) L Globulin 4.3 g/dL Albumin/Globulin Ratio 0.6 (1.0-2.7) L Chidi Bourne MD Oct 14, 2018 09:18
[2018-10-14] MEDS: Tums 500mg ORAL SCH ×2 (09:36→17:38)
[2018-10-14] MEDS: SandoSTATIN 50mcg Inj SUBQ SCH ×2 (09:37→20:59)
[2018-10-14] MEDS: Aspirin EC 81mg tab ORAL SCH (09:37)
[2018-10-14] MEDS: Docusate 100mg cap ORAL SCH ×2 (09:37→17:37)
--- NOTE | 2018-10-14 11:54 | NUR ---
NURSE NOTES: patient is resting on bedside table in tripod position, he is fatigued but can stand and sit with no assistance, he remain son nasal cannula at 2L/min with no distress noted saturating at 100%, patient has had a small bowel movement, he remain on Heparing drip at 16units/kg/hr and dobutamine at 2.5mcg/kg/min. will continue to monitor.
--- NOTE | 2018-10-14 12:48 | Nephrology Progress Note ---
Assessment/Plan Problem List: (1) Acute kidney injury superimposed on CKD Assessment: no significant change. cardiorenal vs ATN. (2) CHF (congestive heart failure) (3) NSTEMI (non-ST elevated myocardial infarction) (4) Hypotension (5) Pneumonia (6) Hypoglycemia Plan off Lasix Dobutamine per Dr Key Discussed with Dr Key follow labs Discussed with RN Subjective Subjective In NAD Objective Objective Last 24 Hour Vital Signs Date Time Temp Pulse Resp B/P (MAP) Pulse Ox O2 Delivery O2 Flow Rate FiO2 10/14/18 12:00 84 10/14/18 12:00 97.6 86 17 81/35 (50) 100 10/14/18 12:00 Nasal Cannula 2.0 10/14/18 11:30 84 25 89/29 (49) 100 10/14/18 11:00 88 21 94/51 (65) 100 10/14/18 10:30 85 13 94/40 (58) 100 10/14/18 09:38 84/54 10/14/18 09:30 86 14 90/35 (53) 100 10/14/18 09:00 90 21 84/54 (64) 98 10/14/18 08:47 88 20 100 Nasal Cannula 2.0 28 10/14/18 08:30 90 22 96/53 (67) 99 10/14/18 08:10 96 Nasal Cannula 2.0 28 10/14/18 08:10 Nasal Cannula 2.0 28 10/14/18 08:10 100 22 94 Nasal Cannula 2.0 28 10/14/18 08:00 Nasal Cannula 2.0 10/14/18 08:00 87 10/14/18 08:00 97.6 92 26 85/35 (52) 96 10/14/18 07:30 88 18 94/45 (61) 96 10/14/18 07:00 88 16 82/47 (59) 100 10/14/18 06:00 92 25 95/54 (68) 100 10/14/18 05:00 85 20 81/32 (48) 100 10/14/18 04:00 96/47 10/14/18 04:00 102 10/14/18 04:00 Nasal Cannula 2.0 10/14/18 04:00 97.5 91 28 96/47 (63) 100 10/14/18 03:00 88 22 104/46 (65) 100 10/14/18 02:00 99 16 75/45 (55) 100 10/14/18 01:34 Nasal Cannula 10/14/18 01:34 84 16 100 Nasal Cannula 2.0 28 10/14/18 01:00 85 23 97/44 (61) 100 10/14/18 00:00 Nasal Cannula 2.0 10/14/18 00:00 98.3 87 16 89/49 (62) 100 10/14/18 00:00 88 10/13/18 23:00 97 18 94/52 (66) 100 10/13/18 22:00 93 18 104/38 (60) 100 10/13/18 21:00 95 22 90/47 (61) 100 10/13/18 20:03 Nasal Cannula 10/13/18 20:02 Nasal Cannula 2.0 28 10/13/18 20:02 100 Nasal Cannula 2.0 28 10/13/18 20:02 97 25 100 Nasal Cannula 2.0 28 10/13/18 20:00 97.9 89 28 109/47 (67) 100 10/13/18 20:00 89 10/13/18 20:00 Nasal Cannula 2.0 10/13/18 19:00 99 24 88/56 (67) 100 10/13/18 18:30 104 23 88/41 (57) 100 10/13/18 18:00 103 27 108/63 (78) 100 10/13/18 17:30 95 17 113/63 (80) 100 10/13/18 17:00 99 24 102/51 (68) 98 10/13/18 16:30 101 15 95/52 (66) 100 10/13/18 16:00 102 21 111/42 (65) 100 10/13/18 16:00 105 10/13/18 16:00 Nasal Cannula 2.0 10/13/18 15:30 103 19 96/48 (64) 100 10/13/18 15:00 102 21 92/37 (55) 100 10/13/18 14:30 102 14 94/37 (56) 100 10/13/18 14:00 101 23 91/32 (51) 100 10/13/18 13:45 102 17 92/35 (54) 100 10/13/18 13:30 101 14 105/29 (54) 100 2/6/19 13:15 91 19 104/27 (52) 100 10/13/18 13:05 87/50 10/13/18 13:00 Nasal Cannula 10/13/18 13:00 88 23 87/50 (62) 100 10/13/18 13:00 Nasal Cannula Intake and Output 10/13/18 10/14/18 19:00 07:00 Intake Total 1477.044 ml 494.624 ml Output Total 100 ml 350 ml Balance 1377.044 ml 144.624 ml Intake Oral 1000 ml IV Total 477.044 ml 494.624 ml Output Urine Total 100 ml 350 ml # Bowel Movements 2 2 Laboratory Tests 10/14/18 04:00: Activated Partial Thromboplast Time 40H, Sodium Level 130L, Potassium Level 3.8 , Chloride Level 92L, Carbon Dioxide Level 27, Anion Gap 12, Blood Urea Nitrogen 76H, Creatinine 2.8H, Estimat Glomerular Filtration Rate , Glucose Level 95, Calcium Level 8.2L, Magnesium Level 2.1, Total Bilirubin 1.0, Aspartate Amino Transf (AST/SGOT) 21, Alanine Aminotransferase (ALT/SGPT) 26, Alkaline Phosphatase 78, Total Protein 6.8, Albumin 2.5L, Globulin 4.3, Albumin/ Globulin Ratio 0.6L Height (Feet): 5 Height (Inches): 2.00 Weight (Pounds): 148 Cardiovascular: normal rate Respiratory/Chest: lungs clear Extremities: moderate edema Mario Porter MD Oct 14, 2018 12:48
--- NOTE | 2018-10-14 14:35 | NUR ---
NURSE NOTES: PTT resulted at 65, No adjustment needed. order for PTT to be drawn at 10/15/18 0400. patient remains on 16units/kg/hr. no bleeding noted from urine or stool, patient remains awake and alert to name and place, will continue plan of care.
--- NOTE | 2018-10-14 17:15 | NUR ---
NURSE NOTES: Dr. Key updated at the bedside of patient condition, told he is unable to lay flat in bed for more than 10 seconds, he begins to start to toss and turn, so it will be difficult to preform MRI or a CT scan, and at this point he is unable to lay flat for a VQ scan. he ordered to have the MRI discontinued and to decrease the dobutamine drip by 1ml/hr until dose finishes and then discontinue medication. will place orders.
--- NOTE | 2018-10-14 17:19 | Cardiology Progress Note ---
Assessment/Plan Assessment/Plan ICU CARDIOLOGY LEVEL CARE 1. Hypoglycemia secondary to medication. 2. Diabetes mellitus previously. 3. Acute Respiratory inusf / hemoptysis 4. History of ischemic cardiomyopathy with ejection fraction of 40%. 5. Mitral regurgitation, [id number] degree on recent echocardiogram last week. 6. Moderate tricuspid regurgitation. 7. Mild pulmonary hypertension with 43 through 48. 8. Pleural effusions history. 9. Abnormal gastric endoscopy, suspicious for malignancy with submucosal resection. 10. Aortic stenosis. 11. Hyperlipidemia. 12. Prostate cancer. 13. Abnormal facial asymmetry. 14. CAD 15. hypotension 16. NSTEMI demand related vs PE related doubt acs v/q was ordered but not done as pt unable to lay down flat he says due to back pain nto due to sob lung sound clear noted cr relative stable he is on UFH drip for presumed PE will taper off dobutamine await cortisol to complete hypotension but i doubt adrenal insuf his sat are better as well i just checked his sta room gabino 98% would treat for pneumonia for now keep on dobutamine but debby to 2.5 mcg now taper off his room air sat now 98% -100 %!!!! min fluid bolus if bp drops keep in icu hope to send out of icu tomorrow Subjective Cardiovascular: Denies: chest pain, lightheadedness, palpitations Respiratory: Denies: shortness of breath Gastrointestinal/Abdominal: Denies: abdominal pain Genitourinary: Denies: burning Subjective on lyign in bed with hob elevated 30degrees Objective Last 24 Hour Vital Signs Date Time Temp Pulse Resp B/P (MAP) Pulse Ox O2 Delivery O2 Flow Rate FiO2 10/14/18 16:30 90 11 106/33 (57) 100 10/14/18 16:00 91 10/14/18 16:00 Nasal Cannula 2.0 10/14/18 16:00 97.6 88 20 90/41 (57) 100 10/14/18 15:30 94 14 89/42 (58) 99 10/14/18 15:00 86 12 83/36 (52) 99 10/14/18 14:30 86 23 82/67 (72) 99 10/14/18 14:00 90 25 84/45 (58) 99 10/14/18 13:30 87 21 92/33 (52) 100 10/14/18 13:26 97 22 100 Nasal Cannula 2.0 28 10/14/18 13:09 97 22 99 Nasal Cannula 2.0 28 10/14/18 13:00 87 24 84/42 (56) 100 10/14/18 12:30 86 21 83/36 (52) 100 10/14/18 12:00 84 10/14/18 12:00 97.6 86 17 81/35 (50) 100 10/14/18 12:00 Nasal Cannula 2.0 10/14/18 11:30 84 25 89/29 (49) 100 10/14/18 11:00 88 21 94/51 (65) 100 10/14/18 10:30 85 13 94/40 (58) 100 10/14/18 09:38 84/54 10/14/18 09:30 86 14 90/35 (53) 100 10/14/18 09:00 90 21 84/54 (64) 98 10/14/18 08:47 88 20 100 Nasal Cannula 2.0 28 10/14/18 08:30 90 22 96/53 (67) 99 10/14/18 08:10 96 Nasal Cannula 2.0 28 10/14/18 08:10 Nasal Cannula 2.0 28 10/14/18 08:10 100 22 94 Nasal Cannula 2.0 28 10/14/18 08:00 Nasal Cannula 2.0 10/14/18 08:00 87 10/14/18 08:00 97.6 92 26 85/35 (52) 96 10/14/18 07:30 88 18 94/45 (61) 96 10/14/18 07:00 88 16 82/47 (59) 100 10/14/18 06:00 92 25 95/54 (68) 100 10/14/18 05:00 85 20 81/32 (48) 100 10/14/18 04:00 96/47 10/14/18 04:00 102 10/14/18 04:00 Nasal Cannula 2.0 10/14/18 04:00 97.5 91 28 96/47 (63) 100 10/14/18 03:00 88 22 104/46 (65) 100 10/14/18 02:00 99 16 75/45 (55) 100 10/14/18 01:34 Nasal Cannula 10/14/18 01:34 84 16 100 Nasal Cannula 2.0 28 10/14/18 01:00 85 23 97/44 (61) 100 10/14/18 00:00 Nasal Cannula 2.0 10/14/18 00:00 98.3 87 16 89/49 (62) 100 10/14/18 00:00 88 10/13/18 23:00 97 18 94/52 (66) 100 10/13/18 22:00 93 18 104/38 (60) 100 10/13/18 21:00 95 22 90/47 (61) 100 10/13/18 20:03 Nasal Cannula 10/13/18 20:02 Nasal Cannula 2.0 28 10/13/18 20:02 100 Nasal Cannula 2.0 28 10/13/18 20:02 97 25 100 Nasal Cannula 2.0 28 10/13/18 20:00 97.9 89 28 109/47 (67) 100 10/13/18 20:00 89 10/13/18 20:00 Nasal Cannula 2.0 10/13/18 19:00 99 24 88/56 (67) 100 10/13/18 18:30 104 23 88/41 (57) 100 10/13/18 18:00 103 27 108/63 (78) 100 10/13/18 17:30 95 17 113/63 (80) 100 General Appearance: no apparent distress, alert Neck: supple, JVD Cardiovascular: normal rate Respiratory/Chest: crackles/rales - lef base less tahtn righ tbase Abdomen: normal bowel sounds, non tender, soft Extremities: moderate edema Intake and Output 10/13/18 10/14/18 19:00 07:00 Intake Total 1477.044 ml 494.624 ml Output Total 100 ml 350 ml Balance 1377.044 ml 144.624 ml Intake Oral 1000 ml IV Total 477.044 ml 494.624 ml Output Urine Total 100 ml 350 ml # Bowel Movements 2 2 Laboratory Tests Test 10/14/18 04:00 10/14/18 13:20 Activated Partial Thromboplast Time 40 SEC (23-33) H 65 SEC (23-33) H Sodium Level 130 MMOL/L (136-145) L Potassium Level 3.8 MMOL/L (3.5-5.1) Chloride Level 92 MMOL/L (98-107) L Carbon Dioxide Level 27 MMOL/L (21-32) Anion Gap 12 mmol/L (5-15) Blood Urea Nitrogen 76 mg/dL (7-18) H Creatinine 2.8 MG/DL (0.55-1.30) H Estimat Glomerular Filtration Rate mL/min (>60) Glucose Level 95 MG/DL (74-106) Calcium Level 8.2 MG/DL (8.5-10.1) L Magnesium Level 2.1 MG/DL (1.8-2.4) Total Bilirubin 1.0 MG/DL (0.2-1.0) Aspartate Amino Transf (AST/SGOT) 21 U/L (15-37) Alanine Aminotransferase (ALT/SGPT) 26 U/L (12-78) Alkaline Phosphatase 78 U/L (46-116) Total Protein 6.8 G/DL (6.4-8.2) Albumin 2.5 G/DL (3.4-5.0) L Globulin 4.3 g/dL Albumin/Globulin Ratio 0.6 (1.0-2.7) L Dg Key MD Oct 14, 2018 17:19
--- NOTE | 2018-10-14 17:55 | NUR ---
NURSE NOTES: patient medication given as was able to chew and swallow with no impairment, patient is sitting at the bedside with dinner eating with no assistance needed, dobutamine drip decreases by 1ml at 1800.
--- NOTE | 2018-10-14 18:58 | NUR ---
NURSE NOTES: Dobutamine drip titrated to 2.0056 mcg/kg/min with dose of 8.07 ml/hr, patient is resting in bed with no tripoding position, will continue to monitor.
--- NOTE | 2018-10-14 19:18 | NUR ---
HAND-OFF: Report given to JACQUI Samuel.
[2018-10-14] MEDS: Dyna-Hex 2% Top Sol 2oz TOPIC SCH (20:00)
--- NOTE | 2018-10-14 20:00 | NUR ---
NURSE NOTES: Patient remains in sitting tripod position, NAD, remains on pressors but titrating down. Will continue to monitor.
[2018-10-14] MEDS: Atorvastatin 20mg tab ORAL SCH (20:58)
[2018-10-14] MEDS: Latanoprost 0.005% Opth 2.5ml Soln BOTH EYES SCH (20:58)
--- NOTE | 2018-10-14 22:00 | NUR ---
NURSE NOTES: Patient placed in bed, patient given some water and pudding. Pressors turned off.
[2018-10-15] VITALS (24 sets, daily range): BP systolic 73–112; BP diastolic 36–99
--- NOTE | 2018-10-15 | NUR ---
NURSE NOTES: Patient sleeping in tripod position, NAD, Vitals stable, afebrile, heparin gtt ongoing, call light within reach, and patient in sight of view. Will continue to monitor.
[2018-10-15] MEDS: Albuterol/Ipratropium 3ml neb HHN SCH ×4 (01:00→19:21)
[2018-10-15] MEDS: NovoLOG Insulin Flexpen SUBQ SCH ×6 (01:00→21:14)
[2018-10-15] MEDS: Piperacillin/Tazobactam 3.375 GM in NS 110 ML IVPB SCH ×2 (01:05→13:35)
--- NOTE | 2018-10-15 02:00 | NUR ---
NURSE NOTES: Patient remains off pressors and BP has since been stable, NAD at this time, remains sitting down on chair.
--- NOTE | 2018-10-15 04:00 | NUR ---
NURSE NOTES: 1 normal BM. Patient does not want to condom catheter as it prevents him from urinating, prefers urinal canister. Towels between perineal area to soak up any dribbling patient may have.
[2018-10-15 05:53] LABS: HEMATOCRIT 26.6 % (42.0-52.0); HEMOGLOBIN 8.3 G/DL (14.2-18.0); MEAN CORPUSCULAR VOLUME 85 FL (80-99); PLATELET COUNT 281 K/UL (150-450); RED BLOOD COUNT 3.13 M/UL (4.70-6.10); RED CELL DISTRIBUTION WIDTH 19.3 % (11.6-14.8); WHITE BLOOD COUNT 8.3 K/UL (4.8-10.8)
--- NOTE | 2018-10-15 06:00 | NUR ---
NURSE NOTES: Patient transitioned to chair. Tripod position but without SOB. Tripod position d/t chronic back pain according to patient. Vitals stable, no more pressors, BP has been stable.
[2018-10-15 06:18] LABS: ANION GAP 15 mmol/L (5-15); BLOOD UREA NITROGEN 82 mg/dL (7-18); CALCIUM 8.2 MG/DL (8.5-10.1); CARBON DIOXIDE 24 MMOL/L (21-32); CHLORIDE 91 MMOL/L (98-107); CREATININE 3.5 MG/DL (0.55-1.30); POTASSIUM 4.4 MMOL/L (3.5-5.1); SODIUM 130 MMOL/L (136-145)
--- NOTE | 2018-10-15 07:15 | NUR ---
NURSE NOTES: Patient received from JACQUI Samuel. Patient is awake, alert and sitting at the edge of the bed. Patient is able to verbalize his needs, opens eyes spontaneously and has muscle strength BUE 3/5 and BLE 3/5. Patient reports upper back pain. Patient's most comfortable position is sitting tripod not for breathing purposes but for back pain relief. Patient is currently on 2L NC and tolerating. Patient is currently on the residential monitor VS 105/43, HR 83, RR 17 SPO2 99%. Upon auscultation, patient has normal breath sounds. Patient has hypoactive belly sounds in all four quadrants. Patient is on a normal CCHO diet. Patient voids. Patient currently has an KIM PICC line running Heparin 16 units/kg/hr that is asymptomatic and patent. Safety measures are in place with bed locked in the lowest position, call light within reach, HOB elevated. Will continue to monitor and follow plan of care.
[2018-10-15] MEDS ORDERED: Tubing Blood Filter IV ONE (08:58)
[2018-10-15] MEDS ORDERED: NS 275ml ONE ×2 (08:58→14:05)
--- NOTE | 2018-10-15 10:00 | NUR ---
NURSE NOTES: Patient ate approximately 50% of his breakfast tray. Patient with VSS and is not in any acute distress. Will continue to monitor.
[2018-10-15] MEDS: Aspirin EC 81mg tab ORAL SCH (10:15)
[2018-10-15] MEDS: Docusate 100mg cap ORAL SCH ×2 (10:15→18:24)
[2018-10-15] MEDS: Tums 500mg ORAL SCH ×2 (10:15→18:24)
[2018-10-15] MEDS: SandoSTATIN 50mcg Inj SUBQ SCH ×2 (10:15→21:13)
--- NOTE | 2018-10-15 12:01 | NUR ---
NURSE NOTES: Patient is AAO x 4 and is sitting up in the chair in tripod position over the table due to back pain. Patient verbalizes his needs, opens eyes spontaneously and responds appropriately to commands. Patient reports upper back pain. Patient's most comfortable position is sitting tripod for back pain relief. Patient is currently on 2L NC and tolerating. Patient is currently on the air sampling and monitoring VSS. Patient currently has an KIM PICC line running Heparin 16 units/kg/hr. Safety measures are in place with bed locked in the lowest position, call light within reach, HOB elevated. Will continue to monitor and follow plan of care.
[2018-10-15] MEDS ORDERED: Tubing IV Secondary IV ONE (14:05)
--- NOTE | 2018-10-15 15:38 | Cardiology Progress Note ---
Assessment/Plan Assessment/Plan 1. Hypoglycemia secondary to medication. 2. Diabetes mellitus previously. 3. Acute Respiratory inusf / hemoptysis 4. History of ischemic cardiomyopathy with ejection fraction of 40%. 5. Mitral regurgitation, [id number] degree on recent echocardiogram last week. 6. Moderate tricuspid regurgitation. 7. Mild pulmonary hypertension with 43 through 48. 8. Pleural effusions history. 9. Abnormal gastric endoscopy, suspicious for malignancy with submucosal resection. 10. Aortic stenosis. 11. Hyperlipidemia. 12. Prostate cancer. 13. Abnormal facial asymmetry. 14. CAD 15. hypotension 16. NSTEMI demand related vs PE related doubt acs 17. acute on chronic renal failure v/q was ordered but not done as pt unable to lay down flat he says due to back pain nto due to sob lung sound clear noted cr increased off dobutamine as of last ntied he is on UFH drip for presumed PE await cortisol to complete hypotension but i doubt adrenal insuf would treat for pneumonia for now min fluid bolus if bp drops transfer to sdu off diuretic however in light of increased cr will restart dobutamine at 2.5 mcg over ntie to see if any change in cr by tomorrow without diuretic d/w rn d/w pulm has sig edema mainly due to dangling leg as he dose nto want to go back to bed echo reviwed has infor post swam and mod mr and ef probley 35-40% , rv is not enalrge ivc ws enlarged at the time was done Subjective Cardiovascular: Denies: chest pain, lightheadedness, palpitations Respiratory: Denies: shortness of breath Genitourinary: Denies: burning Subjective was able to sleep in bed with hob eelvated for 3 hours Objective Last 24 Hour Vital Signs Date Time Temp Pulse Resp B/P (MAP) Pulse Ox O2 Delivery O2 Flow Rate FiO2 10/15/18 15:00 78 18 98/47 (64) 100 10/15/18 14:00 83 18 100/85 (90) 99 10/15/18 13:00 82 20 92/47 (62) 99 10/15/18 12:55 81 17 100 Nasal Cannula 2.0 28 10/15/18 12:45 83 26 97 Nasal Cannula 2.0 28 10/15/18 12:00 Nasal Cannula 2.0 10/15/18 12:00 98.0 81 22 96/79 (85) 99 10/15/18 12:00 81 10/15/18 11:00 82 18 86/59 (68) 99 10/15/18 10:00 84 25 112/99 (103) 99 10/15/18 09:00 84 21 109/43 (65) 99 10/15/18 08:00 Nasal Cannula 2.0 10/15/18 08:00 97.9 84 21 73/53 (60) 95 10/15/18 08:00 84 10/15/18 07:45 92 21 96 Room Air 21 10/15/18 07:35 87 21 97 Nasal Cannula 2.0 28 10/15/18 07:35 Nasal Cannula 2.0 28 10/15/18 07:35 97 Nasal Cannula 2.0 28 10/15/18 07:00 81 16 100/85 (90) 100 10/15/18 06:00 86 18 110/36 (60) 100 10/15/18 05:00 80 30 103/49 (67) 97 10/15/18 04:00 81 10/15/18 04:00 98.1 85 17 112/52 (72) 100 10/15/18 04:00 Nasal Cannula 2.0 10/15/18 03:00 83 25 100/39 (59) 97 10/15/18 02:09 Nasal Cannula 2.0 28 10/15/18 02:08 Nasal Cannula 2.0 28 10/15/18 02:00 96 25 109/46 (67) 97 10/15/18 01:00 84 22 111/37 (61) 98 10/15/18 00:00 Nasal Cannula 2.0 10/15/18 00:00 87 10/15/18 00:00 98.9 86 25 102/59 (73) 100 10/14/18 23:00 84 25 79/56 (64) 100 10/14/18 22:30 85 18 101/56 (71) 100 10/14/18 22:00 91 26 112/43 (66) 99 10/14/18 21:30 88 21 91/47 (62) 98 10/14/18 21:00 88 24 89/50 (63) 99 10/14/18 20:30 87 20 88/34 (52) 100 10/14/18 20:18 89 20 99 Nasal Cannula 2.0 28 10/14/18 20:11 100 Nasal Cannula 2.0 28 10/14/18 20:11 84 21 98 Nasal Cannula 2.0 28 10/14/18 20:11 Nasal Cannula 2.0 28 10/14/18 20:00 Nasal Cannula 2.0 10/14/18 20:00 97.5 88 25 107/68 (81) 99 10/14/18 20:00 88 10/14/18 19:00 80 17 88/34 (52) 99 10/14/18 18:30 88 26 97/46 (63) 99 10/14/18 18:00 88 25 109/50 (69) 98 10/14/18 17:30 95 22 100/34 (56) 96 10/14/18 17:00 90 14 107/43 (64) 99 10/14/18 16:30 90 11 106/33 (57) 100 10/14/18 16:00 91 10/14/18 16:00 Nasal Cannula 2.0 10/14/18 16:00 97.6 88 20 90/41 (57) 100 10/14/18 15:30 94 14 89/42 (58) 99 General Appearance: no apparent distress, alert Neck: supple Cardiovascular: normal rate Respiratory/Chest: lungs clear Abdomen: normal bowel sounds, non tender, soft Extremities: moderate edema Intake and Output 10/14/18 10/15/18 19:00 07:00 Intake Total 1192.645 ml 373.9477 ml Output Total 75 ml 250 ml Balance 1117.645 ml 123.9477 ml Intake Oral 680 ml IV Total 492.645 ml 373.9477 ml Other 20 ml Output Urine Total 75 ml 250 ml # Voids 2 # Bowel Movements 4 1 Laboratory Tests Test 10/15/18 04:00 White Blood Count 8.3 K/UL (4.8-10.8) Red Blood Count 3.13 M/UL (4.70-6.10) L Hemoglobin 8.3 G/DL (14.2-18.0) L Hematocrit 26.6 % (42.0-52.0) L Mean Corpuscular Volume 85 FL (80-99) Mean Corpuscular Hemoglobin 26.4 PG (27.0-31.0) L Mean Corpuscular Hemoglobin Concent 31.1 G/DL (32.0-36.0) L Red Cell Distribution Width 19.3 % (11.6-14.8) H Platelet Count 281 K/UL (150-450) Mean Platelet Volume 5.6 FL (6.5-10.1) L Neutrophils (%) (Auto) % (45.0-75.0) Lymphocytes (%) (Auto) % (20.0-45.0) Monocytes (%) (Auto) % (1.0-10.0) Eosinophils (%) (Auto) % (0.0-3.0) Basophils (%) (Auto) % (0.0-2.0) Differential Total Cells Counted 100 Neutrophils % (Manual) 89 % (45-75) H Lymphocytes % (Manual) 5 % (20-45) L Monocytes % (Manual) 6 % (1-10) Eosinophils % (Manual) 0 % (0-3) Basophils % (Manual) 0 % (0-2) Band Neutrophils 0 % (0-8) Platelet Estimate Adequate Platelet Morphology Normal Hypochromasia 2+ Anisocytosis 2+ Activated Partial Thromboplast Time 66 SEC (23-33) H Sodium Level 130 MMOL/L (136-145) L Potassium Level 4.4 MMOL/L (3.5-5.1) Chloride Level 91 MMOL/L (98-107) L Carbon Dioxide Level 24 MMOL/L (21-32) Anion Gap 15 mmol/L (5-15) Blood Urea Nitrogen 82 mg/dL (7-18) H Creatinine 3.5 MG/DL (0.55-1.30) H Estimat Glomerular Filtration Rate mL/min (>60) Glucose Level 71 MG/DL (74-106) L Calcium Level 8.2 MG/DL (8.5-10.1) L Magnesium Level 2.3 MG/DL (1.8-2.4) Troponin I 0.345 ng/mL (0.000-0.056) Dg Key MD Oct 15, 2018 15:38
[2018-10-15] MEDS ORDERED: DOBUTamine 250mg/250ml Premix 250 ML IV SCH (15:45)
[2018-10-15] MEDS: Heparin 25,000u/D5W 500ml 500 ML IV SCH (16:03)
--- NOTE | 2018-10-15 16:30 | NUR ---
NURSE NOTES: Patient refused his lunch tray. Patient continues to change positions often due to his back discomfort. Patient is AAO x 4. Patient is lying down with HOB in high fowlers on his side. Patient verbalizes his needs, opens eyes spontaneously and follows commands. Patient is currently on 2L NC and tolerating. Patient is currently on the gambling monitor VSS. Patient currently has an KIM PICC line running Heparin 16 units/kg/hr. Safety measures are in place with bed locked in the lowest position, call light within reach, HOB elevated. Will continue to monitor and follow plan of care.
--- NOTE | 2018-10-15 18:13 | NUR ---
CASE MANAGEMENT: REVIEW SI: CHF . NSTEMI . PNA T 98.0 HR 78 RR 20 BP 73/53 SAT 100% NC/2L H/H 8.3/26.6 TROPONIN I 0.345 IS: DOBUTAMINE GTT ZOSYN IV Q12HR HEPARIN GTT PLAVIX PO QD ICU STATUS DCP: PATIENT IS FROM HOME
--- NOTE | 2018-10-15 18:35 | NUR ---
NURSE NOTES: Dobutamine 2.5 mcgs has been started and is running through Patient's KIM PICC. Will continue to monitor.
--- NOTE | 2018-10-15 18:40 | NUR ---
NURSE NOTES: Patient did not eat lunch. Patient requested Apple Sauce with his meds. Ate entire apple sauce with his 1800 meds. Patient states that has very little appetite. Patient is sitting in his chair.
--- NOTE | 2018-10-15 19:30 | NUR ---
NURSE NOTES: Patient received from Henry Godwin RN. Patient is awake, alert and sitting at the chair beside the bed. Patient alert and able to verbalize his needs. Patient's most comfortable position is sitting tripod not for breathing purposes but for back pain relief. Patient is currently on 2L NC and tolerating satting 100%. [facility]. Patient voids. Patient currently has an KIM PICC line running Heparin 16 units/kg/hr. and Dobutamine 2.5 mcgs asymptomatic and patent. Safety measures are in place with bed locked in the lowest position; call light within reach, HOB elevated. Instructed patient to use call light for assistance. Will continue to monitor and follow plan of care.
[2018-10-15] MEDS: Dyna-Hex 2% Top Sol 2oz TOPIC SCH (21:12)
[2018-10-15] MEDS: Latanoprost 0.005% Opth 2.5ml Soln BOTH EYES SCH (21:13)
[2018-10-15] MEDS: Atorvastatin 20mg tab ORAL SCH (21:13)
--- NOTE | 2018-10-15 21:30 | NUR ---
NURSE NOTES: Son at bedside. Meds given. no s/s of acute distress noted. No s/s of hypo/hyperglycemia. Call light within easy reach. CHG bath given.
--- NOTE | 2018-10-15 23:30 | NUR ---
NURSE NOTES: patient with x1 episode of bowel movement, kept clean and dry. Will continue plan of care.
--- NOTE | 2018-10-15 23:35 | Cardiology Report ---
APPROVED REPORT EKG Measurement Heart [id number] ID [id number] Sinus rhythm with fusion complexes and premature atrial complexes with aberrant conduction Right bundle branch block Abnormal ECG
[2018-10-16] VITALS (10 sets, daily range): BP systolic 88–126; BP diastolic 40–65
[2018-10-16] MEDS: NovoLOG Insulin Flexpen SUBQ SCH ×6 (01:00→20:36)
[2018-10-16] MEDS: Piperacillin/Tazobactam 3.375 GM in NS 110 ML IVPB SCH ×2 (01:00→13:02)
[2018-10-16] MEDS: Albuterol/Ipratropium 3ml neb HHN SCH ×3 (01:20→13:42)
--- NOTE | 2018-10-16 01:30 | NUR ---
NURSE NOTES: Patient sitting at the edge of the bed, call light within easy reach.
--- NOTE | 2018-10-16 04:15 | NUR ---
TRANSFER TO FLOOR: Patient transferred to SCU 238-1, per Dr. Key. Report given to . Belongings and medications given to JACQUI Fatmia]. Family and or S/O informed of transfer. Addendum: 10/16/18 at 0434 by DONOVAN CRAWLEY RN RN Report given to Akua OSMAN that the patient is very high risk for fall.Will call son in am.
--- NOTE | 2018-10-16 04:15 | NUR ---
NURSE NOTES: Received report from Jolene OSMAN, pt. transferred from ICU - pt. is A/O 'xs4- able to make needs known, no signs or symptoms of acute distress noted, cardiac monitoring placed, pt. teaching done and pt. oriented to room, pt. appears to be sating well on 2L NC at 98%- no distressn oted, pt. is clean and dry and appears to be resting comfortable in bed, bed alarm on, side rails on x's3 safety brakes engaged, call light within easy reach and bed in lowest position, full body assessment done- skin intact but pitting edema to bilateral foot and ankle edema, pt. has Dobuterex running at 2.5mcg /hr out of KIM picc- iv intact and patent and Heparin drip running at 16U/Kg/hr- via KIM PICC Iv intact and patent, LFA 20G IV intact and patent, safety measures continued, will continue with plan of care. Addendum: 10/16/18 at 0441 by KALPANA MUIR RN RN correction to message above Dobutrex is running at 2.5mcg/kg/min- not hour.
[2018-10-16] MEDS ORDERED: Albuterol/Ipratropium 3ml neb HHN PRN (04:27)
[2018-10-16] MEDS ORDERED: Norco 5mg/325mg tab ORAL PRN (04:28)
[2018-10-16] MEDS ORDERED: Promethazine Plain 6.25mg/5ml ORAL PRN (04:33)
[2018-10-16] MEDS: DOBUTamine 250mg/250ml Premix 250 ML IV SCH ×2 (04:51→18:09)
[2018-10-16] MEDS: Heparin 25,000u/D5W 500ml 500 ML IV SCH ×2 (04:52→18:12)
--- NOTE | 2018-10-16 07:31 | NUR ---
HAND-OFF: Report given to Stephanie Callejas, Pt. remains stable and no signs of distress noted- nurse aware to f/u w/ doctor on bleeding noted from inside nose- patient noted have spotting of blood from nose- pt. appears to be stable and no distress noted.
--- NOTE | 2018-10-16 07:31 | NUR ---
NURSE NOTES: Received report from Norman Mcneal RN. Patient is awake, sitting on chair, A/O x4. No s/s of acute distress noted at this time. Sinus rhythm on mold presser. Left forearm 20g IV saline lock, intact and patent. Left upper arm PICC line, intact and patent, running Dobuterex and Heparin drip on separate catheters. Call light left within reach, will continue to monitor.
--- NOTE | 2018-10-16 08:16 | General Progress Note ---
Assessment/Plan Problem List: (1) CKD (chronic kidney disease) ICD Codes: N18.9 - Chronic kidney disease, unspecified SNOMED: 747890583 (2) Hypoglycemia ICD Codes: E16.2 - Hypoglycemia, unspecified SNOMED: 917778817 (3) Altered mental status ICD Codes: R41.82 - Altered mental status, unspecified SNOMED: 393299471 Assessment/Plan hypoglycemia due to Amaryl improved and resoled after octreotide added DC Octreotide 50 mcg subQ every 12 hours Do not resume Amaryl after DC consider Januvia 25 mg daily for DM management as OP ( do not start until hypoglycemia is completely resolved) no need for any DM oral agents for now Subjective Allergies: Coded Allergies: PENICILLINS (Verified Allergy, Unknown, 10/09/18) All Systems: reviewed and negative except above Subjective events noted out of ICU appetite is poor Item Value Date Time Bedside Blood Glucose 139 mg/dl H 10/16/18 0555 Bedside Blood Glucose 106 mg/dl 10/16/18 0100 Bedside Blood Glucose 137 mg/dl H 10/15/18 2114 Bedside Blood Glucose 95 mg/dl 10/15/18 1700 Bedside Blood Glucose 105 mg/dl 10/15/18 1300 Bedside Blood Glucose 126 mg/dl H 10/15/18 0900 Objective Last 24 Hour Vital Signs Date Time Temp Pulse Resp B/P (MAP) Pulse Ox O2 Delivery O2 Flow Rate FiO2 10/16/18 07:47 Nasal Cannula 2.0 28 10/16/18 07:47 97 Nasal Cannula 2.0 28 10/16/18 07:28 Nasal Cannula 2.0 28 10/16/18 07:28 Nasal Cannula 2.0 28 10/16/18 04:51 126/52 10/16/18 04:20 Nasal Cannula 2.0 10/16/18 04:20 98.1 80 21 126/52 (76) 100 10/16/18 04:15 88 10/16/18 04:00 Nasal Cannula 2.0 10/16/18 04:00 82 10/16/18 04:00 98.1 85 23 122/49 (73) 100 10/16/18 03:00 85 23 106/41 (62) 100 10/16/18 02:00 85 23 108/41 (63) 100 10/16/18 01:30 86 18 98 Nasal Cannula 2.0 28 10/16/18 01:20 85 21 97 Nasal Cannula 2.0 28 10/16/18 01:00 85 23 103/40 (61) 100 10/16/18 00:00 98.0 85 23 88/49 (62) 100 10/16/18 00:00 Nasal Cannula 2.0 10/15/18 23:00 88 23 108/77 (87) 100 10/15/18 22:00 88 21 103/69 (80) 100 10/15/18 21:00 88 21 91/53 (66) 100 10/15/18 20:00 Nasal Cannula 2.0 10/15/18 20:00 97.9 87 21 110/37 (61) 100 10/15/18 20:00 88 10/15/18 19:41 Nasal Cannula 2.0 28 10/15/18 19:41 98 Nasal Cannula 2.0 28 10/15/18 19:31 88 20 99 Nasal Cannula 2.0 28 10/15/18 19:21 84 24 98 Nasal Cannula 2.0 28 10/15/18 19:00 84 21 81/58 (66) 100 10/15/18 18:24 96/57 10/15/18 18:00 88 21 104/42 (62) 100 10/15/18 17:00 78 20 100/44 (62) 100 10/15/18 16:00 81 10/15/18 16:00 Nasal Cannula 2.0 10/15/18 16:00 98.0 78 20 87/74 (78) 100 10/15/18 15:00 78 18 98/47 (64) 100 10/15/18 14:00 83 18 100/85 (90) 99 10/15/18 13:00 82 20 92/47 (62) 99 10/15/18 12:55 81 17 100 Nasal Cannula 2.0 28 10/15/18 12:45 83 26 97 Nasal Cannula 2.0 28 10/15/18 12:00 Nasal Cannula 2.0 10/15/18 12:00 98.0 81 22 96/79 (85) 99 10/15/18 12:00 81 10/15/18 11:00 82 18 86/59 (68) 99 10/15/18 10:00 84 25 112/99 (103) 99 10/15/18 09:00 84 21 109/43 (65) 99 Intake and Output 10/15/18 10/16/18 19:00 07:00 Intake Total 644.832 ml 520.884 ml Output Total 0 ml Balance 644.832 ml 520.884 ml Intake Oral 320 ml 60 ml IV Total 324.832 ml 460.884 ml Output Urine Total 0 ml # Voids 6 1 # Bowel Movements 2 Laboratory Tests 10/16/18 04:15: Activated Partial Thromboplast Time 90H Height (Feet): 5 Height (Inches): 2.00 Weight (Pounds): 148 General Appearance: no apparent distress Neck: normal alignment Cardiovascular: normal rate Respiratory/Chest: decreased breath sounds Abdomen: normal bowel sounds Edema: 1+ Arm (L), 1+ Arm (R), 1+ Leg (L), 1+ Leg (R), 1+ Pedal (L), 1+ Pedal ( R), 1+ Generalized Objective Current Medications Medications (Trade) Dose Ordered Sig/Ashely Route PRN Reason Start Time Stop Time Status Last Admin Dose Admin Acetaminophen (Tylenol) 650 mg Q6H PRN ORAL Mild Pain/Temp > 100.5 10/16/18 04:24 11/08/18 04:23 Albuterol/ Ipratropium (Albuterol/ Ipratropium) 3 ml Q6HRT HHN 10/16/18 07:00 10/16/18 18:59 Aspirin (Ecotrin) 81 mg DAILY ORAL 10/16/18 09:00 11/09/18 08:59 Atorvastatin Calcium (Lipitor) 40 mg BEDTIME ORAL 10/16/18 21:00 11/09/18 20:59 Calcium Carbonate (Tums) 500 mg BID ORAL 10/16/18 09:00 11/09/18 08:59 Chlorhexidine Gluconate (Anai-Hex 2%) 1 applic DAILY@1999 TOPIC 10/16/18 20:00 11/12/18 19:59 Clopidogrel Bisulfate (Plavix) 75 mg DAILY ORAL 10/16/18 09:00 11/09/18 08:59 Dextrose (Dextrose 50%) 25 ml Q30M PRN IV Hypoglycemia 10/16/18 04:15 11/08/18 22:44 Dextrose (Dextrose 50%) 50 ml Q30M PRN IV Hypoglycemia 10/16/18 04:15 11/08/18 22:44 Dobutamine HCl 250 ml @ 10.05 mls/ hr Q24H IV 10/16/18 05:00 11/14/18 04:59 10/16/18 04:51 Docusate Sodium (Colace) 100 mg TWICE A DAY ORAL 10/16/18 09:00 11/09/18 08:59 Heparin Sodium/ Dextrose 500 ml @ 21.482 mls/ hr ADJUST PER PROTOCOL IV 10/16/18 05:00 11/10/18 04:59 10/16/18 04:52 Insulin Aspart (NovoLOG) EVERY 4 HOURS SUBQ 10/16/18 05:00 11/09/18 06:29 10/16/18 05:55 Latanoprost (Xalatan) 1 drop BEDTIME BOTH EYES 10/16/18 21:00 11/10/18 20:59 Octreotide Acetate (SandoSTATIN) 50 mcg Q12HR SUBQ 10/16/18 09:00 11/10/18 07:59 Pantoprazole (Protonix) 40 mg ACBREAKFAST ORAL 10/16/18 06:30 11/09/18 08:59 10/16/18 05:52 Piperacillin Sod/ Tazobactam Sod 3.375 gm/Sodium Chloride 110 ml @ 27.5 mls/hr Q12H IVPB 10/16/18 13:00 10/21/18 12:59 Promethazine HCl (Phenergan Plain) 6.25 mg Q6H PRN ORAL For Cough 10/16/18 04:33 11/10/18 04:32 Barry Schmitt MD Oct 16, 2018 08:16
--- NOTE | 2018-10-16 08:30 | NUR ---
NURSE NOTES: Informed Dr. Shahid MD of patient minor nosebleed and patient is on humidified O2 2L via NC. MD ordered to have patient on room air, unless O2 sat <94%. Noted and carried out. Patient remains free from s/s of acute distress. Will continue to monitor.
[2018-10-16] MEDS ORDERED: SandoSTATIN 50mcg Inj SUBQ SCH (09:00)
[2018-10-16] MEDS: Tums 500mg ORAL SCH ×2 (09:24→17:35)
[2018-10-16] MEDS: Aspirin EC 81mg tab ORAL SCH (09:25)
[2018-10-16] MEDS: Docusate 100mg cap ORAL SCH ×2 (09:25→17:35)
--- NOTE | 2018-10-16 10:21 | Pulmonology Progress Note ---
Assessment/Plan Assessment/Plan Pulmonary Progress Note Assessment/Plan Problems: (1) CHF (congestive heart failure) (2) CAD (coronary artery disease) (3) NSTEMI (non-ST elevated myocardial infarction) (4) Respiratory acidosis (5) Hemoptysis (6) Hypoglycemia (7) Pneumonia (8) Hypotension (9) Elevated d-dimer (10) Acute kidney injury superimposed on CKD Respiratory: monitor respiratory rate, adjust FIO2, CXR, other - IVUH for now, will attempt VQ on thursday, HHN's Cardiac: continue to monitor HR/BP, other - Dobut per cards, lasix held / DAVY Renal: check electrolytes, other - F/U renal recs, diuresis held Infectious Disease: check cultures, continue antibiotics Gastrointestinal: other - Aspiration precautions Endocrine: monitor blood sugar, continue sliding scale insulin, oral diabetic meds - held by ENDO, on octreotide Hematologic: monitor H/H Prophylaxis: Protonix, Heparin - IVUH Disposition: keep in ICU Time Spent (Minutes): 40 Notes Reviewed: knit tubing dyer, cardio, 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4 PG (27.0-31.0) L Mean Corpuscular Hemoglobin Concent 31.1 G/DL (32.0-36.0) L Red Cell Distribution Width 19.3 % (11.6-14.8) H Platelet Count 281 K/UL (150-450) Mean Platelet Volume 5.6 FL (6.5-10.1) L Neutrophils (%) (Auto) % (45.0-75.0) Lymphocytes (%) (Auto) % (20.0-45.0) Monocytes (%) (Auto) % (1.0-10.0) Eosinophils (%) (Auto) % (0.0-3.0) Basophils (%) (Auto) % (0.0-2.0) Differential Total Cells Counted 100 Neutrophils % (Manual) 89 % (45-75) H Lymphocytes % (Manual) 5 % (20-45) L Monocytes % (Manual) 6 % (1-10) Eosinophils % (Manual) 0 % (0-3) Basophils % (Manual) 0 % (0-2) Band Neutrophils 0 % (0-8) Platelet Estimate Adequate Platelet Morphology Normal Hypochromasia 2+ Anisocytosis 2+ Activated Partial Thromboplast Time 66 SEC (23-33) H Sodium Level 130 MMOL/L (136-145) L Potassium Level 4.4 MMOL/L (3.5-5.1) Chloride Level 91 MMOL/L (98-107) L Carbon Dioxide Level 24 MMOL/L (21-32) Anion Gap 15 mmol/L (5-15) Blood Urea Nitrogen 82 mg/dL (7-18) H Creatinine 3.5 MG/DL (0.55-1.30) H Estimat Glomerular Filtration Rate mL/min (>60) Glucose Level 71 MG/DL (74-106) L Calcium Level 8.2 MG/DL (8.5-10.1) L Magnesium Level 2.3 MG/DL (1.8-2.4) Troponin I 0.345 ng/mL (0.000-0.056) Subjective ROS Limited/Unobtainable: No Allergies: Coded Allergies: PENICILLINS (Verified Allergy, Unknown, 10/09/18) Objective Last 24 Hour Vital Signs Date Time Temp Pulse Resp B/P (MAP) Pulse Ox O2 Delivery O2 Flow Rate FiO2 10/16/18 08:00 98.6 85 20 104/49 (67) 98 10/16/18 07:47 Nasal Cannula 2.0 28 10/16/18 07:47 97 Nasal Cannula 2.0 28 10/16/18 07:28 Nasal Cannula 2.0 28 10/16/18 07:28 Nasal Cannula 2.0 28 10/16/18 04:51 126/52 10/16/18 04:20 Nasal Cannula 2.0 10/16/18 04:20 98.1 80 21 126/52 (76) 100 10/16/18 04:15 88 10/16/18 04:00 Nasal Cannula 2.0 10/16/18 04:00 82 10/16/18 04:00 98.1 85 23 122/49 (73) 100 10/16/18 03:00 85 23 106/41 (62) 100 10/16/18 02:00 85 23 108/41 (63) 100 10/16/18 01:30 86 18 98 Nasal Cannula 2.0 28 10/16/18 01:20 85 21 97 Nasal Cannula 2.0 28 10/16/18 01:00 85 23 103/40 (61) 100 10/16/18 00:00 98.0 85 23 88/49 (62) 100 10/16/18 00:00 Nasal Cannula 2.0 10/15/18 23:00 88 23 108/77 (87) 100 10/15/18 22:00 88 21 103/69 (80) 100 10/15/18 21:00 88 21 91/53 (66) 100 10/15/18 20:00 Nasal Cannula 2.0 10/15/18 20:00 97.9 87 21 110/37 (61) 100 10/15/18 20:00 88 10/15/18 19:41 Nasal Cannula 2.0 28 10/15/18 19:41 98 Nasal Cannula 2.0 28 10/15/18 19:31 88 20 99 Nasal Cannula 2.0 28 10/15/18 19:21 84 24 98 Nasal Cannula 2.0 28 10/15/18 19:00 84 21 81/58 (66) 100 10/15/18 18:24 96/57 10/15/18 18:00 88 21 104/42 (62) 100 10/15/18 17:00 78 20 100/44 (62) 100 10/15/18 16:00 81 10/15/18 16:00 Nasal Cannula 2.0 10/15/18 16:00 98.0 78 20 87/74 (78) 100 10/15/18 15:00 78 18 98/47 (64) 100 10/15/18 14:00 83 18 100/85 (90) 99 10/15/18 13:00 82 20 92/47 (62) 99 10/15/18 12:55 81 17 100 Nasal Cannula 2.0 28 10/15/18 12:45 83 26 97 Nasal Cannula 2.0 28 10/15/18 12:00 Nasal Cannula 2.0 10/15/18 12:00 98.0 81 22 96/79 (85) 99 10/15/18 12:00 81 10/15/18 11:00 82 18 86/59 (68) 99 Intake and Output 10/15/18 10/16/18 19:00 07:00 Intake Total 644.832 ml 520.884 ml Output Total 0 ml Balance 644.832 ml 520.884 ml Intake Oral 320 ml 60 ml IV Total 324.832 ml 460.884 ml Output Urine Total 0 ml # Voids 6 1 # Bowel Movements 2 Laboratory Tests 10/16/18 04:15: Activated Partial Thromboplast Time 90H Current Medications Medications (Trade) Dose Ordered Sig/Ashely Route PRN Reason Start Time Stop Time Status Last Admin Dose Admin Acetaminophen (Tylenol) 650 mg Q6H PRN ORAL Mild Pain/Temp > 100.5 10/16/18 04:24 11/08/18 04:23 Albuterol/ Ipratropium (Albuterol/ Ipratropium) 3 ml Q6HRT HHN 10/16/18 07:00 10/16/18 18:59 Aspirin (Ecotrin) 81 mg DAILY ORAL 10/16/18 09:00 11/09/18 08:59 10/16/18 09:25 Atorvastatin Calcium (Lipitor) 40 mg BEDTIME ORAL 10/16/18 21:00 11/09/18 20:59 Calcium Carbonate (Tums) 500 mg BID ORAL 10/16/18 09:00 11/09/18 08:59 10/16/18 09:24 Chlorhexidine Gluconate (Anai-Hex 2%) 1 applic DAILY@2000 TOPIC 10/16/18 20:00 11/12/18 19:59 Clopidogrel Bisulfate (Plavix) 75 mg DAILY ORAL 10/16/18 09:00 11/09/18 08:59 10/16/18 09:25 Dextrose (Dextrose 50%) 25 ml Q30M PRN IV Hypoglycemia 10/16/18 04:15 11/08/18 22:44 Dextrose (Dextrose 50%) 50 ml Q30M PRN IV Hypoglycemia 10/16/18 04:15 11/08/18 22:44 Dobutamine HCl 250 ml @ 10.05 mls/ hr Q24H IV 10/16/18 05:00 11/14/18 04:59 10/16/18 04:51 Docusate Sodium (Colace) 100 mg TWICE A DAY ORAL 10/16/18 09:00 11/09/18 08:59 10/16/18 09:25 Heparin Sodium/ Dextrose 500 ml @ 21.482 mls/ hr ADJUST PER PROTOCOL IV 10/16/18 05:00 11/10/18 04:59 10/16/18 04:52 Insulin Aspart (NovoLOG) EVERY 4 HOURS SUBQ 10/16/18 05:00 11/09/18 06:29 10/16/18 05:55 Latanoprost (Xalatan) 1 drop BEDTIME BOTH EYES 10/16/18 21:00 11/10/18 20:59 Pantoprazole (Protonix) 40 mg ACBREAKFAST ORAL 10/16/18 06:30 11/09/18 08:59 10/16/18 05:52 Piperacillin Sod/ Tazobactam Sod 3.375 gm/Sodium Chloride 110 ml @ 27.5 mls/hr Q12H IVPB 10/16/18 13:00 10/21/18 12:59 Promethazine HCl (Phenergan Plain) 6.25 mg Q6H PRN ORAL For Cough 10/16/18 04:33 11/10/18 04:32 Erick Traylor MD Oct 16, 2018 10:21
--- NOTE | 2018-10-16 11:23 | NUR ---
CASE MANAGEMENT: REVIEW SI: CHF . NSTEMI . PNA . AMS T 98.6 HR 85 RR 21 BP 104/49 SAT 98% NC/2L H/H 8.3/26.6 TROPONIN I 0.345 IS: DOBUTAMINE GTT ZOSYN IV Q12HR HEPARIN GTT PLAVIX PO QD STEP DOWN UNIT STATUS DCP: PATIENT IS FROM HOME
--- NOTE | 2018-10-16 11:46 | Nephrology Progress Note ---
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 Off lasix currently - adjust therapy pending am labs 2) CHF - Moderate to severe mitral regurgitation. Tricuspid systolic velocities suggests peak right ventricular systolic pressure of 54 mmHg,consistent with moderate pulmonary hypertension . EF 35%, however severe MR thus anticipate EF % much lower - Dobutamine gtt, off lasix and BMP pending - monitor BP carefully and adjust diuretics pending hemodynamic stability 3) Resp FL- per pulm 4) Presumed PE- heparin gtt Subjective Date patient seen: Oct 16, 2018 Time patient seen: 11:41 ROS Limited/Unobtainable: Yes Constitutional: Reports: malaise, weakness Respiratory: Reports: shortness of breath Allergies: Coded Allergies: PENICILLINS (Verified Allergy, Unknown, 10/09/18) Subjective Patient ill appearing. Sitting up in bed. SOB Objective Last 24 Hour Vital Signs Date Time Temp Pulse Resp B/P (MAP) Pulse Ox O2 Delivery O2 Flow Rate FiO2 10/16/18 08:00 98.6 85 20 104/49 (67) 98 10/16/18 07:47 Nasal Cannula 2.0 28 10/16/18 07:47 97 Nasal Cannula 2.0 28 10/16/18 07:28 Nasal Cannula 2.0 28 10/16/18 07:28 Nasal Cannula 2.0 28 10/16/18 04:51 126/52 10/16/18 04:20 Nasal Cannula 2.0 10/16/18 04:20 98.1 80 21 126/52 (76) 100 10/16/18 04:15 88 10/16/18 04:00 Nasal Cannula 2.0 10/16/18 04:00 82 10/16/18 04:00 98.1 85 23 122/49 (73) 100 10/16/18 03:00 85 23 106/41 (62) 100 10/16/18 02:00 85 23 108/41 (63) 100 10/16/18 01:30 86 18 98 Nasal Cannula 2.0 28 10/16/18 01:20 85 21 97 Nasal Cannula 2.0 28 10/16/18 01:00 85 23 103/40 (61) 100 10/16/18 00:00 98.0 85 23 88/49 (62) 100 10/16/18 00:00 Nasal Cannula 2.0 10/15/18 23:00 88 23 108/77 (87) 100 10/15/18 22:00 88 21 103/69 (80) 100 10/15/18 21:00 88 21 91/53 (66) 100 10/15/18 20:00 Nasal Cannula 2.0 10/15/18 20:00 97.9 87 21 110/37 (61) 100 10/15/18 20:00 88 10/15/18 19:41 Nasal Cannula 2.0 28 10/15/18 19:41 98 Nasal Cannula 2.0 28 10/15/18 19:31 88 20 99 Nasal Cannula 2.0 28 10/15/18 19:21 84 24 98 Nasal Cannula 2.0 28 10/15/18 19:00 84 21 81/58 (66) 100 10/15/18 18:24 96/57 10/15/18 18:00 88 21 104/42 (62) 100 10/15/18 17:00 78 20 100/44 (62) 100 10/15/18 16:00 81 10/15/18 16:00 Nasal Cannula 2.0 10/15/18 16:00 98.0 78 20 87/74 (78) 100 10/15/18 15:00 78 18 98/47 (64) 100 10/15/18 14:00 83 18 100/85 (90) 99 10/15/18 13:00 82 20 92/47 (62) 99 10/15/18 12:55 81 17 100 Nasal Cannula 2.0 28 10/15/18 12:45 83 26 97 Nasal Cannula 2.0 28 10/15/18 12:00 Nasal Cannula 2.0 10/15/18 12:00 98.0 81 22 96/79 (85) 99 10/15/18 12:00 81 Intake and Output 10/15/18 10/16/18 19:00 07:00 Intake Total 644.832 ml 520.884 ml Output Total 0 ml Balance 644.832 ml 520.884 ml Intake Oral 320 ml 60 ml IV Total 324.832 ml 460.884 ml Output Urine Total 0 ml # Voids 6 1 # Bowel Movements 2 Laboratory Tests 10/16/18 04:15: Activated Partial Thromboplast Time 90H Height (Feet): 5 Height (Inches): 2.00 Weight (Pounds): 148 General Appearance: mild distress EENT: normal ENT inspection Neck: normal alignment, supple Cardiovascular: normal rate Respiratory/Chest: rhonchi - bilaterally Abdomen: non tender, soft Edema: 1+ Arm (L), 1+ Arm (R), 1+ Leg (L), 1+ Leg (R), 1+ Pedal (L), 1+ Pedal ( R), 1+ Generalized Aric Rodriguez MD Oct 16, 2018 11:46
[2018-10-16 11:49] LABS: ANION GAP 18 mmol/L (5-15); BLOOD UREA NITROGEN 99 mg/dL (7-18); CALCIUM 8.8 MG/DL (8.5-10.1); CARBON DIOXIDE 20 MMOL/L (21-32); CHLORIDE 89 MMOL/L (98-107); CREATININE 4.4 MG/DL (0.55-1.30); POTASSIUM 4.8 MMOL/L (3.5-5.1); SODIUM 127 MMOL/L (136-145)
--- NOTE | 2018-10-16 12:00 | NUR ---
HAND-OFF: Report given to Tiffanie Ramos RN.
--- NOTE | 2018-10-16 12:44 | NUR ---
NURSE NOTES: Received pt from JACQUI Richard. A/Ox2-3, pt is sitting in chair, able to answer yes or no questions. Primarily speaks Farsi. Pt is running heparin gtt @16units/kg/hr and Dobutamine @10.05cc/hr via KIM PICC. next PTT draw at 0400 tomorrow. Pt is NSR on monitoring coordinator; HR is 72. Pt on RA, SPO2 95%. Yellow socks and fall risk band in place. Pt refused to go back to bed. Will ask him again later. NO s/sx of hypo or hyperglycemia. No bleeding noted. Pt uses urinal. Bed locked, alarmed and in lowest position. Will continue to monitor.
--- NOTE | 2018-10-16 14:36 | NUR ---
NURSE NOTES: pt c/o of nausea, no emesis. Notified Dr. Key and received orders for Zofran 4mg IV Q8h. Medication given. Pt has not eaten breakfast or lunch, refused both. Offered saltine crackers but pt still refused. Will try again later.
--- NOTE | 2018-10-16 15:31 | Cardiology Progress Note ---
Assessment/Plan Problem List: (1) CKD (chronic kidney disease) (2) CAD (coronary artery disease) (3) CHF (congestive heart failure) (4) NSTEMI (non-ST elevated myocardial infarction) (5) Acute kidney injury superimposed on CKD (6) Hypoglycemia Status: stable, unchanged Status Narrative Mr Bob has cardiomyopathy, ? ischemic vs nonischemic, w/ EF 35-40% and mod- sev MR. He does not appear clinically w/ vol overload, but will check cxr. BNP not accurate in setting of RF He has worsening renal function, despite iv dobutamine He has mild troponin elevation without chest pain , ? demand ischemia Assessment/Plan will continue dobutamine today. continue asa, plavix, statin. Check CXR Consider small amt iv hydration. Nephrology followup. Subjective ROS Limited/Unobtainable: No Subjective Cardiology for Dr. Key Pt appears weak, fatigued. Offers no c/o Objective Last 24 Hour Vital Signs Date Time Temp Pulse Resp B/P (MAP) Pulse Ox O2 Delivery O2 Flow Rate FiO2 10/16/18 13:42 82 16 100 Room Air 21 10/16/18 13:24 90 22 100 Room Air 21 10/16/18 12:00 Room Air 10/16/18 12:00 77 10/16/18 12:00 98.6 77 20 122/65 (84) 96 10/16/18 08:00 98.6 85 20 104/49 (67) 98 10/16/18 08:00 Room Air 10/16/18 07:47 Nasal Cannula 2.0 28 10/16/18 07:47 97 Nasal Cannula 2.0 28 10/16/18 07:28 Nasal Cannula 2.0 28 10/16/18 07:28 Nasal Cannula 2.0 28 10/16/18 04:51 126/52 10/16/18 04:20 Nasal Cannula 2.0 10/16/18 04:20 98.1 80 21 126/52 (76) 100 10/16/18 04:15 88 10/16/18 04:00 Nasal Cannula 2.0 10/16/18 04:00 82 10/16/18 04:00 98.1 85 23 122/49 (73) 100 10/16/18 03:00 85 23 106/41 (62) 100 10/16/18 02:00 85 23 108/41 (63) 100 10/16/18 01:30 86 18 98 Nasal Cannula 2.0 28 10/16/18 01:20 85 21 97 Nasal Cannula 2.0 28 10/16/18 01:00 85 23 103/40 (61) 100 10/16/18 00:00 98.0 85 23 88/49 (62) 100 10/16/18 00:00 Nasal Cannula 2.0 10/15/18 23:00 88 23 108/77 (87) 100 10/15/18 22:00 88 21 103/69 (80) 100 10/15/18 21:00 88 21 91/53 (66) 100 10/15/18 20:00 Nasal Cannula 2.0 10/15/18 20:00 97.9 87 21 110/37 (61) 100 10/15/18 20:00 88 10/15/18 19:41 Nasal Cannula 2.0 28 10/15/18 19:41 98 Nasal Cannula 2.0 28 10/15/18 19:31 88 20 99 Nasal Cannula 2.0 28 10/15/18 19:21 84 24 98 Nasal Cannula 2.0 28 10/15/18 19:00 84 21 81/58 (66) 100 10/15/18 18:24 96/57 10/15/18 18:00 88 21 104/42 (62) 100 10/15/18 17:00 78 20 100/44 (62) 100 10/15/18 16:00 81 10/15/18 16:00 Nasal Cannula 2.0 10/15/18 16:00 98.0 78 20 87/74 (78) 100 General Appearance: WD/WN, no apparent distress EENT: PERRL/EOMI, other - dry oral mucosa Neck: no JVD Rhythm: NSR Cardiovascular: normal rate, regular rhythm, systolic murmur Respiratory/Chest: lungs clear Abdomen: non tender, soft, no mass Extremities: no swelling Intake and Output 10/15/18 10/16/18 19:00 07:00 Intake Total 644.832 ml 520.884 ml Output Total 0 ml Balance 644.832 ml 520.884 ml Intake Oral 320 ml 60 ml IV Total 324.832 ml 460.884 ml Output Urine Total 0 ml # Voids 6 1 # Bowel Movements 2 Laboratory Tests Test 10/16/18 04:15 Activated Partial Thromboplast Time 90 SEC (23-33) H Sodium Level 127 MMOL/L (136-145) L Potassium Level 4.8 MMOL/L (3.5-5.1) Chloride Level 89 MMOL/L (98-107) L Carbon Dioxide Level 20 MMOL/L (21-32) L Anion Gap 18 mmol/L (5-15) H Blood Urea Nitrogen 99 mg/dL (7-18) H Creatinine 4.4 MG/DL (0.55-1.30) H Estimat Glomerular Filtration Rate mL/min (>60) Glucose Level 125 MG/DL (74-106) H Calcium Level 8.8 MG/DL (8.5-10.1) Krystal Barone MD Oct 16, 2018 15:31
--- NOTE | 2018-10-16 16:10 | Diagnostic Imaging Report ---
EXAM: XR Chest, 1 View CLINICAL HISTORY: DYSPNEA TECHNIQUE: Frontal view of the chest. COMPARISON: Chest x-ray, 10/13/18 959 FINDINGS: Lungs: Mild vascular and interstitial prominence, slightly improved in the right lower lobe from prior study. No consolidation. Pleural space: Tiny bilateral pleural effusions are similar to prior study. No pneumothorax. Heart: Unremarkable. No cardiomegaly. Mediastinum: Unremarkable. Bones/joints: Unremarkable. Vasculature: Aortic knob calcification. Tubes, lines and devices: Left PICC line to the mid SVC. IMPRESSION: 1. Left PICC line to the mid SVC. 2. Mild vascular and interstitial prominence, slightly improved in the right lower lobe from prior study. 3. Tiny bilateral pleural effusions are similar to prior study.
--- NOTE | 2018-10-16 17:40 | NUR ---
NURSE NOTES: Pt slept but still feels nauseous upon waking up. Asked to be tx to chair again. Pt is very reluctant to eat. took few sips of soda and pudding. Called Reed Watters on facesheet to possibly bring homecooked food for pt in the morning. Held insulin coverage due to minimal intake.
--- NOTE | 2018-10-16 19:17 | NUR ---
HAND-OFF: Report given to JACQUI Cole.
--- NOTE | 2018-10-16 19:18 | NUR ---
NURSE NOTES: Received beside report from JACQUI Moreno.Patient stable,sitting in a chair,A&O x4,SR on aircraft dispatcher,tolerated r/air well,IV asymptomatic intact on KIM PICC running with Dobutamine and Heparin,L f/arm G 20 SL,no c/o pain,no respiratory distress noted,BS active in all quadrants,bed secured in a low safety position,call light within a reach,will continue to monitor and follow POC.
[2018-10-16] MEDS: Dyna-Hex 2% Top Sol 2oz TOPIC SCH (20:35)
[2018-10-16] MEDS: Atorvastatin 20mg tab ORAL SCH (20:36)
[2018-10-16] MEDS: Latanoprost 0.005% Opth 2.5ml Soln BOTH EYES SCH (20:38)
[2018-10-17] VITALS: BP 105/58
[2018-10-17] MEDS: NovoLOG Insulin Flexpen SUBQ SCH ×5 (01:00→20:50)
[2018-10-17] MEDS: Piperacillin/Tazobactam 3.375 GM in NS 110 ML IVPB SCH ×2 (01:14→12:56)
[2018-10-17 04:00] VITALS: BP 112/62
[2018-10-17 05:21] LABS: ANION GAP 20 mmol/L (5-15); BLOOD UREA NITROGEN 104 mg/dL (7-18); CALCIUM 7.8 MG/DL (8.5-10.1); CARBON DIOXIDE 19 MMOL/L (21-32); CHLORIDE 88 MMOL/L (98-107); CREATININE 5.3 MG/DL (0.55-1.30); POTASSIUM 4.9 MMOL/L (3.5-5.1); SODIUM 127 MMOL/L (136-145)
--- NOTE | 2018-10-17 05:40 | NUR ---
NURSE NOTES: Received a critical result PTT >150,charge nurse aware.Will call [facility].
--- NOTE | 2018-10-17 05:44 | NUR ---
NURSE NOTES: Called [facility] and received new order from luther Florez to hold Heparin for 60 minutes,and decrease to 12units/kg/hr or 16.112 ml/hr Next PTT in 6 hrs about 1145.Charge nurse aware
[2018-10-17] MEDS: Heparin 25,000u/D5W 500ml 500 ML IV SCH ×2 (06:40→20:31)
--- NOTE | 2018-10-17 07:05 | NUR ---
HAND-OFF: Report given to JACQUI Bernal.Patient stable.
--- NOTE | 2018-10-17 07:06 | NUR ---
NURSE NOTES: RECEIVED PATIENT FROM Elaine LÓPEZ RN. PATIENT IS SITTING IN A CHAIR, AWAKE. HOOKED TO POWERHOUSE ATTENDANT. ON 2L NC. NO SIGNS OF RESPI OR CARDIO DISTRESS OF THE MOMENT. IVS ON L FA G4, PICC ON L UA PICC. IVF RUNNING DOBUTAMINE AT 2.5MCG/KG/MIN. HEPARIN DRIP RUNNING AT 12UNITS/KG/MIN. CALL LIGHT WITHIN REACH. BED AT LOWEST POSITION. SIDE RAILS UP. WILL CONTINUE TO MONITOR.
[2018-10-17 08:00] VITALS: BP 118/79
--- NOTE | 2018-10-17 08:32 | General Progress Note ---
Assessment/Plan Problem List: (1) CKD (chronic kidney disease) ICD Codes: N18.9 - Chronic kidney disease, unspecified SNOMED: 248948856 (2) Hypoglycemia ICD Codes: E16.2 - Hypoglycemia, unspecified SNOMED: 104180640 (3) Altered mental status ICD Codes: R41.82 - Altered mental status, unspecified SNOMED: 425203511 Assessment/Plan hypoglycemia due to Amaryl - treated with Octreotide - resolved Do not resume Amaryl after DC consider Januvia 25 mg daily for DM management as OP - add only if needed changed glucose monitoring every 4 hours to ac / hs - Novolog low dose coverage only if POC glucose is > 200 mg/dL Subjective Allergies: Coded Allergies: PENICILLINS (Verified Allergy, Unknown, 10/09/18) All Systems: reviewed and negative except above Subjective events noted no recurrence of hypoglycemia after Octreotide DC'ed Item Value Date Time Bedside Blood Glucose 110 mg/dl 10/17/18 0500 Bedside Blood Glucose 102 mg/dl 10/17/18 0100 Bedside Blood Glucose 107 mg/dl 10/16/18 2036 Bedside Blood Glucose 121 mg/dl H 10/16/18 1700 Bedside Blood Glucose 111 mg/dl 10/16/18 1300 Bedside Blood Glucose 125 mg/dl H 10/16/18 0900 Bedside Blood Glucose 139 mg/dl H 10/16/18 0555 Objective Last 24 Hour Vital Signs Date Time Temp Pulse Resp B/P (MAP) Pulse Ox O2 Delivery O2 Flow Rate FiO2 10/17/18 06:50 96 Nasal Cannula 2.0 28 10/17/18 06:50 Nasal Cannula 2.0 28 10/17/18 04:00 98.1 80 16 112/62 (79) 95 10/17/18 04:00 Room Air 10/17/18 03:34 80 10/17/18 01:38 95 Nasal Cannula 2.0 28 10/17/18 01:38 Nasal Cannula 2.0 28 10/17/18 01:38 Nasal Cannula 2.0 28 10/17/18 01:38 Nasal Cannula 2.0 28 10/17/18 00:00 97.7 85 16 105/58 (74) 93 10/17/18 00:00 Room Air 10/16/18 23:37 75 10/16/18 20:00 Room Air 2/9/19 20:00 96.3 78 18 91/54 (66) 93 10/16/18 19:36 82 10/16/18 18:09 111/55 10/16/18 16:18 75 10/16/18 16:00 97.2 75 20 111/55 (73) 96 10/16/18 16:00 Room Air 10/16/18 13:42 82 16 100 Room Air 21 10/16/18 13:24 90 22 100 Room Air 21 10/16/18 12:00 Room Air 10/16/18 12:00 77 10/16/18 12:00 98.6 77 20 122/65 (84) 96 Intake and Output 10/16/18 10/17/18 18:59 06:59 Intake Total 515.884 ml 492.613 ml Balance 515.884 ml 492.613 ml Intake Oral 50 ml IV Total 515.884 ml 442.613 ml # Bowel Movements 1 Laboratory Tests 10/17/18 04:10: Activated Partial Thromboplast Time > 150*H, Sodium Level 127L, Potassium Level 4.9, Chloride Level 88L, Carbon Dioxide Level 19L, Anion Gap 20H, Blood Urea Nitrogen 104H, Creatinine 5.3H, Estimat Glomerular Filtration Rate , Glucose Level 96, Calcium Level 7.8L Height (Feet): 5 Height (Inches): 2.00 Weight (Pounds): 148 General Appearance: no apparent distress Neck: normal alignment Cardiovascular: normal rate Respiratory/Chest: decreased breath sounds Abdomen: normal bowel sounds Objective Current Medications Medications (Trade) Dose Ordered Sig/Ashely Route PRN Reason Start Time Stop Time Status Last Admin Dose Admin Acetaminophen (Tylenol) 650 mg Q6H PRN ORAL Mild Pain/Temp > 100.5 10/16/18 04:24 11/08/18 04:23 Aspirin (Ecotrin) 81 mg DAILY ORAL 10/16/18 09:00 11/09/18 08:59 10/16/18 09:25 Atorvastatin Calcium (Lipitor) 40 mg BEDTIME ORAL 10/16/18 21:00 11/09/18 20:59 10/16/18 20:36 Calcium Carbonate (Tums) 500 mg BID ORAL 10/16/18 09:00 11/09/18 08:59 10/16/18 17:35 Chlorhexidine Gluconate (Anai-Hex 2%) 1 applic DAILY@2000 TOPIC 10/16/18 20:00 11/12/18 19:59 10/16/18 20:35 Clopidogrel Bisulfate (Plavix) 75 mg DAILY ORAL 10/16/18 09:00 11/09/18 08:59 10/16/18 09:25 Dextrose (Dextrose 50%) 25 ml Q30M PRN IV Hypoglycemia 10/16/18 04:15 11/08/18 22:44 Dextrose (Dextrose 50%) 50 ml Q30M PRN IV Hypoglycemia 10/16/18 04:15 11/08/18 22:44 Dobutamine HCl 250 ml @ 10.05 mls/ hr Q24H IV 10/16/18 05:00 11/14/18 04:59 10/16/18 18:09 Docusate Sodium (Colace) 100 mg TWICE A DAY ORAL 10/16/18 09:00 11/09/18 08:59 10/16/18 17:35 Heparin Sodium/ Dextrose 500 ml @ 16.112 mls/ hr ADJUST PER PROTOCOL IV 10/17/18 06:45 11/10/18 04:59 10/17/18 06:40 Insulin Aspart (NovoLOG) EVERY 4 HOURS SUBQ 10/16/18 05:00 11/09/18 06:29 10/16/18 05:55 Latanoprost (Xalatan) 1 drop BEDTIME BOTH EYES 10/16/18 21:00 11/10/18 20:59 Ondansetron HCl (Zofran) 4 mg Q8HR PRN IVP Nausea & Vomiting 10/16/18 14:25 11/15/18 14:24 10/16/18 14:30 Pantoprazole (Protonix) 40 mg ACBREAKFAST ORAL 10/16/18 06:30 11/09/18 08:59 10/17/18 06:37 Piperacillin Sod/ Tazobactam Sod 3.375 gm/Sodium Chloride 110 ml @ 27.5 mls/hr Q12H IVPB 10/16/18 13:00 10/21/18 12:59 10/17/18 01:14 Promethazine HCl (Phenergan Plain) 6.25 mg Q6H PRN ORAL For Cough 10/16/18 04:33 11/10/18 04:32 Barry Schmitt MD Oct 17, 2018 08:32
[2018-10-17] MEDS: Tums 500mg ORAL SCH ×2 (09:53→18:00)
[2018-10-17] MEDS: Aspirin EC 81mg tab ORAL SCH (09:54)
[2018-10-17] MEDS: Docusate 100mg cap ORAL SCH ×2 (09:54→18:00)
--- NOTE | 2018-10-17 11:00 | Nephrology Progress Note ---
Assessment/Plan Problem List: (1) Acute kidney injury superimposed on CKD Assessment: worse. cardiorenal vs ATN. (2) CHF (congestive heart failure) (3) NSTEMI (non-ST elevated myocardial infarction) (4) Hypotension (5) Pneumonia (6) Hypoglycemia Plan needs HD Dobutamine per Dr Key Discussed with Dr Key follow labs Discussed with RN and son psych consult Subjective Subjective SOB Objective Objective Last 24 Hour Vital Signs Date Time Temp Pulse Resp B/P (MAP) Pulse Ox O2 Delivery O2 Flow Rate FiO2 10/17/18 08:00 97.0 81 18 118/79 (92) 100 10/17/18 06:50 96 Nasal Cannula 2.0 28 10/17/18 06:50 Nasal Cannula 2.0 28 10/17/18 04:00 98.1 80 16 112/62 (79) 95 10/17/18 04:00 Room Air 10/17/18 03:34 80 10/17/18 01:38 95 Nasal Cannula 2.0 28 10/17/18 01:38 Nasal Cannula 2.0 28 10/17/18 01:38 Nasal Cannula 2.0 28 10/17/18 01:38 Nasal Cannula 2.0 28 10/17/18 00:00 97.7 85 16 105/58 (74) 93 10/17/18 00:00 Room Air 10/16/18 23:37 75 10/16/18 20:00 Room Air 10/16/18 20:00 96.3 78 18 91/54 (66) 93 10/16/18 19:36 82 10/16/18 18:09 111/55 10/16/18 16:18 75 10/16/18 16:00 97.2 75 20 111/55 (73) 96 10/16/18 16:00 Room Air 10/16/18 13:42 82 16 100 Room Air 21 10/16/18 13:24 90 22 100 Room Air 21 10/16/18 12:00 Room Air 10/16/18 12:00 77 10/16/18 12:00 98.6 77 20 122/65 (84) 96 Intake and Output 10/16/18 10/17/18 18:59 06:59 Intake Total 515.884 ml 492.613 ml Balance 515.884 ml 492.613 ml Intake Oral 50 ml IV Total 515.884 ml 442.613 ml # Bowel Movements 1 Laboratory Tests 10/17/18 04:10: Activated Partial Thromboplast Time > 150*H, Sodium Level 127L, Potassium Level 4.9, Chloride Level 88L, Carbon Dioxide Level 19L, Anion Gap 20H, Blood Urea Nitrogen 104H, Creatinine 5.3H, Estimat Glomerular Filtration Rate , Glucose Level 96, Calcium Level 7.8L Height (Feet): 5 Height (Inches): 2.00 Weight (Pounds): 148 Respiratory/Chest: rhonchi - bilaterally Extremities: moderate edema Mario Porter MD Oct 17, 2018 11:00
[2018-10-17 12:00] VITALS: BP 91/69
--- NOTE | 2018-10-17 13:02 | Cardiology Report ---
APPROVED REPORT EKG Measurement Heart [id number] Sinus rhythm with 1st degree AV block Right bundle branch block Anterolateral infarct, age undetermined Abnormal ECG
--- NOTE | 2018-10-17 14:10 | Cardiology Progress Note ---
Assessment/Plan Problem List: (1) CKD (chronic kidney disease) (2) CAD (coronary artery disease) (3) CHF (congestive heart failure) (4) NSTEMI (non-ST elevated myocardial infarction) (5) Acute kidney injury superimposed on CKD (6) Hypoglycemia Status: not improved Status Narrative Mr Bob has cardiomyopathy, ? ischemic vs nonischemic, w/ 40% and mod-sev MR , TR by recent ECHO CXR appears w/ interstitial edema, vol overload He has worsening renal function over past 2 days despite iv dobutamine He has mild troponin elevation without chest pain , consistent with demand ischemia Assessment/Plan will continue dobutamine today. continue asa, plavix, statin. Nephrology evaluation noted - He will likely need hemodialysis. Subjective ROS Limited/Unobtainable: No Subjective Cardiology for Dr. Key Pt appears weak, fatigued. c/o intermittent dyspnea Objective Last 24 Hour Vital Signs Date Time Temp Pulse Resp B/P (MAP) Pulse Ox O2 Delivery O2 Flow Rate FiO2 10/17/18 12:00 Room Air 10/17/18 12:00 96.6 71 18 91/69 (76) 95 10/17/18 12:00 78 10/17/18 08:00 Room Air 10/17/18 08:00 85 10/17/18 08:00 97.0 81 18 118/79 (92) 100 10/17/18 06:50 96 Nasal Cannula 2.0 28 10/17/18 06:50 Nasal Cannula 2.0 28 10/17/18 04:00 98.1 80 16 112/62 (79) 95 10/17/18 04:00 Room Air 10/17/18 03:34 80 10/17/18 01:38 95 Nasal Cannula 2.0 28 10/17/18 01:38 Nasal Cannula 2.0 28 10/17/18 01:38 Nasal Cannula 2.0 28 10/17/18 01:38 Nasal Cannula 2.0 28 10/17/18 00:00 97.7 85 16 105/58 (74) 93 10/17/18 00:00 Room Air 10/16/18 23:37 75 10/16/18 20:00 Room Air 10/16/18 20:00 96.3 78 18 91/54 (66) 93 10/16/18 19:36 82 10/16/18 18:09 111/55 2/9/19 16:18 75 10/16/18 16:00 97.2 75 20 111/55 (73) 96 10/16/18 16:00 Room Air General Appearance: WD/WN, alert EENT: PERRL/EOMI Neck: non-tender, no JVD Rhythm: NSR Cardiovascular: normal rate, regular rhythm, no gallop/murmur Respiratory/Chest: no respiratory distress, other - shallow respirations, occ rhonchi Abdomen: non tender, soft Extremities: other - 1+ peripheral LE edema Intake and Output 10/16/18 10/17/18 19:00 07:00 Intake Total 510.077 ml 482.308 ml Balance 510.077 ml 482.308 ml Intake Oral 50 ml IV Total 510.077 ml 432.308 ml # Bowel Movements 1 Laboratory Tests Test 10/17/18 04:10 10/17/18 11:35 10/17/18 12:55 Activated Partial Thromboplast Time > 150 SEC (23-33) *H 43 SEC (23-33) H Sodium Level 127 MMOL/L (136-145) L Potassium Level 4.9 MMOL/L (3.5-5.1) Chloride Level 88 MMOL/L (98-107) L Carbon Dioxide Level 19 MMOL/L (21-32) L Anion Gap 20 mmol/L (5-15) H Blood Urea Nitrogen 104 mg/dL (7-18) H Creatinine 5.3 MG/DL (0.55-1.30) H Estimat Glomerular Filtration Rate mL/min (>60) Glucose Level 96 MG/DL (74-106) Calcium Level 7.8 MG/DL (8.5-10.1) L Arterial Blood pH 7.379 (7.350-7.450) Arterial Blood Partial Pressure CO2 25.6 mmHg (35.0-45.0) L Arterial Blood Partial Pressure O2 51.3 mmHg (75.0-100.0) L Arterial Blood HCO3 14.8 mmol/L (22.0-26.0) *L Arterial Blood Oxygen Saturation 82.1 % (95-100) *L Arterial Blood Base Excess -9.1 (-2-2) *L Tee Test Positive Krystal Barone MD Oct 17, 2018 14:10
[2018-10-17 16:00] VITALS: BP 102/58
--- NOTE | 2018-10-17 16:01 | Pulmonology Progress Note ---
Assessment/Plan Assessment/Plan Pulmonary Progress Note Assessment/Plan Problems: (1) CHF (congestive heart failure) (2) CAD (coronary artery disease) (3) NSTEMI (non-ST elevated myocardial infarction) (4) Respiratory acidosis (5) Hemoptysis (6) Hypoglycemia (7) Pneumonia (8) Hypotension (9) Elevated d-dimer (10) Acute kidney injury superimposed on CKD Respiratory: monitor respiratory rate, adjust FIO2, CXR, other - IVUH for now, will attempt VQ on thursday, HHN's, BiPAP PRN of neccessary Cardiac: continue to monitor HR/BP, other - Dobut per cards, lasix held / DAVY Renal: check electrolytes, other - F/U renal recs, diuresis held Infectious Disease: check cultures, continue antibiotics Gastrointestinal: other - Aspiration precautions Endocrine: monitor blood sugar, continue sliding scale insulin, oral diabetic meds - held by ENDO, on octreotide Hematologic: monitor H/H Prophylaxis: Protonix, Heparin - IVUH Disposition: keep in ICU Time Spent (Minutes): 40 Notes 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, 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, 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4 PG (27.0-31.0) L Mean Corpuscular Hemoglobin Concent 31.1 G/DL (32.0-36.0) L Red Cell Distribution Width 19.3 % (11.6-14.8) H Platelet Count 281 K/UL (150-450) Mean Platelet Volume 5.6 FL (6.5-10.1) L Neutrophils (%) (Auto) % (45.0-75.0) Lymphocytes (%) (Auto) % (20.0-45.0) Monocytes (%) (Auto) % (1.0-10.0) Eosinophils (%) (Auto) % (0.0-3.0) Basophils (%) (Auto) % (0.0-2.0) Differential Total Cells Counted 100 Neutrophils % (Manual) 89 % (45-75) H Lymphocytes % (Manual) 5 % (20-45) L Monocytes % (Manual) 6 % (1-10) Eosinophils % (Manual) 0 % (0-3) Basophils % (Manual) 0 % (0-2) Band Neutrophils 0 % (0-8) Platelet Estimate Adequate Platelet Morphology Normal Hypochromasia 2+ Anisocytosis 2+ Activated Partial Thromboplast Time 66 SEC (23-33) H Sodium Level 130 MMOL/L (136-145) L Potassium Level 4.4 MMOL/L (3.5-5.1) Chloride Level 91 MMOL/L (98-107) L Carbon Dioxide Level 24 MMOL/L (21-32) Anion Gap 15 mmol/L (5-15) Blood Urea Nitrogen 82 mg/dL (7-18) H Creatinine 3.5 MG/DL (0.55-1.30) H Estimat Glomerular Filtration Rate mL/min (>60) Glucose Level 71 MG/DL (74-106) L Calcium Level 8.2 MG/DL (8.5-10.1) L Magnesium Level 2.3 MG/DL (1.8-2.4) Troponin I 0.345 ng/mL (0.000-0.056) Subjective ROS Limited/Unobtainable: No Allergies: Coded Allergies: PENICILLINS (Verified Allergy, Unknown, 10/09/18) Objective Last 24 Hour Vital Signs Date Time Temp Pulse Resp B/P (MAP) Pulse Ox O2 Delivery O2 Flow Rate FiO2 10/17/18 12:00 Room Air 10/17/18 12:00 96.6 71 18 91/69 (76) 95 10/17/18 12:00 78 10/17/18 08:00 Room Air 10/17/18 08:00 85 10/17/18 08:00 97.0 81 18 118/79 (92) 100 10/17/18 06:50 96 Nasal Cannula 2.0 28 10/17/18 06:50 Nasal Cannula 2.0 28 10/17/18 04:00 98.1 80 16 112/62 (79) 95 10/17/18 04:00 Room Air 10/17/18 03:34 80 10/17/18 01:38 95 Nasal Cannula 2.0 28 10/17/18 01:38 Nasal Cannula 2.0 28 10/17/18 01:38 Nasal Cannula 2.0 28 10/17/18 01:38 Nasal Cannula 2.0 28 10/17/18 00:00 97.7 85 16 105/58 (74) 93 10/17/18 00:00 Room Air 10/16/18 23:37 75 10/16/18 20:00 Room Air 10/16/18 20:00 96.3 78 18 91/54 (66) 93 10/16/18 19:36 82 10/16/18 18:09 111/55 10/16/18 16:18 75 Intake and Output 10/16/18 10/17/18 19:00 07:00 Intake Total 510.077 ml 482.308 ml Balance 510.077 ml 482.308 ml Intake Oral 50 ml IV Total 510.077 ml 432.308 ml # Bowel Movements 1 Laboratory Tests 10/17/18 04:10: Activated Partial Thromboplast Time > 150*H, Sodium Level 127L, Potassium Level 4.9, Chloride Level 88L, Carbon Dioxide Level 19L, Anion Gap 20H, Blood Urea Nitrogen 104H, Creatinine 5.3H, Estimat Glomerular Filtration Rate , Glucose Level 96, Calcium Level 7.8L 10/17/18 11:35: Activated Partial Thromboplast Time 43H 10/17/18 12:55: Arterial Blood pH 7.379, Arterial Blood Partial Pressure CO2 25.6L, Arterial Blood Partial Pressure O2 51.3L, Arterial Blood HCO3 14.8*L, Arterial Blood Oxygen Saturation 82.1*L, Arterial Blood Base Excess -9.1*L, Tee Test Positive 10/17/18 15:55: Activated Partial Thromboplast Time [Pending] Current Medications Medications (Trade) Dose Ordered Sig/Ashely Route PRN Reason Start Time Stop Time Status Last Admin Dose Admin Acetaminophen (Tylenol) 650 mg Q6H PRN ORAL Mild Pain/Temp > 100.5 2/9/19 04:24 11/08/18 04:23 Aspirin (Ecotrin) 81 mg DAILY ORAL 10/16/18 09:00 11/09/18 08:59 10/17/18 09:54 Atorvastatin Calcium (Lipitor) 40 mg BEDTIME ORAL 10/16/18 21:00 11/09/18 20:59 10/16/18 20:36 Calcium Carbonate (Tums) 500 mg BID ORAL 10/16/18 09:00 11/09/18 08:59 10/17/18 09:53 Chlorhexidine Gluconate (Anai-Hex 2%) 1 applic DAILY@2000 TOPIC 10/16/18 20:00 11/12/18 19:59 10/16/18 20:35 Clopidogrel Bisulfate (Plavix) 75 mg DAILY ORAL 10/16/18 09:00 11/09/18 08:59 10/17/18 09:54 Dextrose (Dextrose 50%) 25 ml Q30M PRN IV Hypoglycemia 10/17/18 08:45 11/16/18 08:44 Dextrose (Dextrose 50%) 50 ml Q30M PRN IV Hypoglycemia 10/17/18 08:45 11/16/18 08:44 Dobutamine HCl 250 ml @ 10.05 mls/ hr Q24H IV 10/16/18 05:00 11/14/18 04:59 10/16/18 18:09 Docusate Sodium (Colace) 100 mg TWICE A DAY ORAL 10/16/18 09:00 11/09/18 08:59 10/17/18 09:54 Heparin Sodium/ Dextrose 500 ml @ 16.112 mls/ hr ADJUST PER PROTOCOL IV 10/17/18 06:45 11/10/18 04:59 10/17/18 06:40 Insulin Aspart (NovoLOG) BEFORE MEALS AND HS SUBQ 10/17/18 11:30 11/16/18 11:29 Latanoprost (Xalatan) 1 drop BEDTIME BOTH EYES 10/16/18 21:00 11/10/18 20:59 Ondansetron HCl (Zofran) 4 mg Q8HR PRN IVP Nausea & Vomiting 10/16/18 14:25 11/15/18 14:24 10/16/18 14:30 Pantoprazole (Protonix) 40 mg ACBREAKFAST ORAL 10/16/18 06:30 11/09/18 08:59 10/17/18 06:37 Piperacillin Sod/ Tazobactam Sod 3.375 gm/Sodium Chloride 110 ml @ 27.5 mls/hr Q12H IVPB 10/16/18 13:00 10/21/18 12:59 10/17/18 12:56 Promethazine HCl (Phenergan Plain) 6.25 mg Q6H PRN ORAL For Cough 10/16/18 04:33 11/10/18 04:32 Erick Traylor MD Oct 17, 2018 16:01
--- NOTE | 2018-10-17 19:25 | NUR ---
NURSE NOTES: Received report from Dolores RN, pt. in bed awake- pt. is A/O 'xs4- able to make needs known, Family is at bedside, no signs or symptoms of acute distress noted, cardiac monitoring on, pt. appears to be sating well on 2L NC at 99%- no distress, pt. is clean and dry and appears to be resting comfortable sitting on side of bed, bed alarm on, side rails up x's3 and safety brakes engaged, call light within easy reach and bed in lowest position, pt. noted to have 3+ pitting edema to bilateral feet and ankles, pt. has Dobuterex running at 2.5mcg/kg/min out of KIM picc- iv intact and patent and Heparin drip running at 12U/Kg/hr- via KIM PICC Iv intact and patent, LFA 20G IV intact and patent- TKO, safety measures continued, will continue with plan of care. per endorsement to stop Heparin drip 6 hours prior to procedure so okay to hold at 0400.
--- NOTE | 2018-10-17 19:40 | NUR ---
HAND-OFF: Report given to Norman Mcneal RN.
[2018-10-17 20:00] VITALS: BP 95/63
--- NOTE | 2018-10-17 20:00 | NUR ---
NURSE NOTES: pt. placed on Venturi mask at 55% 14L, as he was desating to low 80's on NC 2L- will continue to monitor pt. and with plan pf care.
[2018-10-17] MEDS: Atorvastatin 20mg tab ORAL SCH (20:25)
[2018-10-17] MEDS: Dyna-Hex 2% Top Sol 2oz TOPIC SCH (20:25)
[2018-10-17] MEDS: DOBUTamine 250mg/250ml Premix 250 ML IV SCH (20:30)
[2018-10-17] MEDS: Latanoprost 0.005% Opth 2.5ml Soln BOTH EYES SCH (20:37)
--- NOTE | 2018-10-17 21:39 | Consultation ---
History of Present Illness Present Illness HPI 83-year-old, white male, with history of CKD and mmp. the pt was cognitively impaired and unable to answer the questions. the pt is easily agitated. the pt is unable to understand, process, communicate nor appreciate the information was given to him, the pt has been refusing HD. the pt has poor memory and concentration. Allergies: Coded Allergies: PENICILLINS (Verified Allergy, Unknown, 10/09/18) Medication History Scheduled Aspirin* (Aspir 81*), 81 MG ORAL DAILY, (Reported) Bimatoprost (Lumigan), 1 DROP BOTH EYES DAILY, (Reported) Clopidogrel* (Clopidogrel*), 75 MG ORAL DAILY, (Reported) Dexlansoprazole (Dexilant), 30 MG ORAL DAILY, (Reported) Docusate Sodium* (Docusate Sodium*), 100 MG ORAL TWICE A DAY, (Reported) Furosemide* (Lasix*), 80 MG ORAL BID, (Reported) Metolazone (Metolazone), 5 MG PO 3XW, (Reported) Simvastatin (Zocor), 20 MG ORAL BEDTIME, (Reported) [calcium oyster], 500 MG PO BID, (Reported) Miscellaneous Medications Lisinopril* (Lisinopril*), 2.5 MG ORAL, (Reported) [calcium], (Reported) Patient History Limited by: medical condition History Provided By: Medical Record, PMD Healthcare decision maker Resuscitation status Full Code Advanced Directive on File Past Medical/Surgical History Past Medical/Surgical History: (1) Hypoglycemia (2) Altered mental status (3) CKD (chronic kidney disease) (4) CAD (coronary artery disease) (5) CHF (congestive heart failure) (6) NSTEMI (non-ST elevated myocardial infarction) (7) Hemoptysis (8) Respiratory acidosis (9) Hypotension (10) Pneumonia (11) Elevated d-dimer (12) Acute kidney injury superimposed on CKD Review of Systems Psychiatric: Reports: anxiety, depressed feelings, emotional problems Physical Exam General Appearance: alert, agitated Neurologic: disoriented, depressed affect Last 24 Hour Vital Signs Date Time Temp Pulse Resp B/P (MAP) Pulse Ox O2 Delivery O2 Flow Rate FiO2 10/17/18 20:30 90/62 10/17/18 16:00 Room Air 10/17/18 16:00 79 10/17/18 16:00 96.8 72 18 102/58 (73) 95 10/17/18 12:00 Room Air 10/17/18 12:00 96.6 71 18 91/69 (76) 95 10/17/18 12:00 78 10/17/18 08:00 Room Air 10/17/18 08:00 85 10/17/18 08:00 97.0 81 18 118/79 (92) 100 10/17/18 06:50 96 Nasal Cannula 2.0 28 10/17/18 06:50 Nasal Cannula 2.0 28 10/17/18 04:00 98.1 80 16 112/62 (79) 95 10/17/18 04:00 Room Air 10/17/18 03:34 80 10/17/18 01:38 95 Nasal Cannula 2.0 28 10/17/18 01:38 Nasal Cannula 2.0 28 10/17/18 01:38 Nasal Cannula 2.0 28 10/17/18 01:38 Nasal Cannula 2.0 28 10/17/18 00:00 97.7 85 16 105/58 (74) 93 10/17/18 00:00 Room Air 10/16/18 23:37 75 Intake and Output 10/16/18 10/17/18 19:00 07:00 Intake Total 510.077 ml 482.308 ml Balance 510.077 ml 482.308 ml Intake Oral 50 ml IV Total 510.077 ml 432.308 ml # Bowel Movements 1 Laboratory Tests Test 10/17/18 04:10 10/17/18 11:35 10/17/18 12:55 10/17/18 15:55 Activated Partial Thromboplast Time > 150 SEC (23-33) *H 43 SEC (23-33) H 80 SEC (23-33) H Sodium Level 127 MMOL/L (136-145) L Potassium Level 4.9 MMOL/L (3.5-5.1) Chloride Level 88 MMOL/L (98-107) L Carbon Dioxide Level 19 MMOL/L (21-32) L Anion Gap 20 mmol/L (5-15) H Blood Urea Nitrogen 104 mg/dL (7-18) H Creatinine 5.3 MG/DL (0.55-1.30) H Estimat Glomerular Filtration Rate mL/min (>60) Glucose Level 96 MG/DL (74-106) Calcium Level 7.8 MG/DL (8.5-10.1) L Arterial Blood pH 7.379 (7.350-7.450) Arterial Blood Partial Pressure CO2 25.6 mmHg (35.0-45.0) L Arterial Blood Partial Pressure O2 51.3 mmHg (75.0-100.0) L Arterial Blood HCO3 14.8 mmol/L (22.0-26.0) *L Arterial Blood Oxygen Saturation 82.1 % (95-100) *L Arterial Blood Base Excess -9.1 (-2-2) *L Tee Test Positive Height (Feet): 5 Height (Inches): 2.00 Weight (Pounds): 148 Medications Current Medications Medications (Trade) Dose Ordered Sig/Ashely Route PRN Reason Start Time Stop Time Status Last Admin Dose Admin Acetaminophen (Tylenol) 650 mg Q6H PRN ORAL Mild Pain/Temp > 100.5 10/16/18 04:24 11/08/18 04:23 Aspirin (Ecotrin) 81 mg DAILY ORAL 10/16/18 09:00 11/09/18 08:59 10/17/18 09:54 Atorvastatin Calcium (Lipitor) 40 mg BEDTIME ORAL 10/16/18 21:00 11/09/18 20:59 10/17/18 20:25 Calcium Carbonate (Tums) 500 mg BID ORAL 10/16/18 09:00 11/09/18 08:59 10/17/18 09:53 Chlorhexidine Gluconate (Anai-Hex 2%) 1 applic DAILY@2000 TOPIC 10/16/18 20:00 11/12/18 19:59 10/17/18 20:25 Clopidogrel Bisulfate (Plavix) 75 mg DAILY ORAL 10/16/18 09:00 11/09/18 08:59 10/17/18 09:54 Dextrose (Dextrose 50%) 25 ml Q30M PRN IV Hypoglycemia 10/17/18 08:45 11/16/18 08:44 Dextrose (Dextrose 50%) 50 ml Q30M PRN IV Hypoglycemia 10/17/18 08:45 11/16/18 08:44 Dobutamine HCl 250 ml @ 10.05 mls/ hr Q24H IV 10/16/18 05:00 11/14/18 04:59 10/17/18 20:30 Docusate Sodium (Colace) 100 mg TWICE A DAY ORAL 10/16/18 09:00 11/09/18 08:59 10/17/18 09:54 Heparin Sodium/ Dextrose 500 ml @ 16.112 mls/ hr ADJUST PER PROTOCOL IV 10/17/18 06:45 11/10/18 04:59 10/17/18 20:31 Insulin Aspart (NovoLOG) BEFORE MEALS AND HS SUBQ 10/17/18 11:30 11/16/18 11:29 Latanoprost (Xalatan) 1 drop BEDTIME BOTH EYES 10/16/18 21:00 11/10/18 20:59 10/17/18 20:37 Ondansetron HCl (Zofran) 4 mg Q8HR PRN IVP Nausea & Vomiting 10/16/18 14:25 11/15/18 14:24 10/16/18 14:30 Pantoprazole (Protonix) 40 mg ACBREAKFAST ORAL 10/16/18 06:30 11/09/18 08:59 10/17/18 06:37 Piperacillin Sod/ Tazobactam Sod 3.375 gm/Sodium Chloride 110 ml @ 27.5 mls/hr Q12H IVPB 10/16/18 13:00 10/21/18 12:59 10/17/18 12:56 Promethazine HCl (Phenergan Plain) 6.25 mg Q6H PRN ORAL For Cough 10/16/18 04:33 11/10/18 04:32 Assessment/Plan Problem List: (1) Acute metabolic encephalopathy ICD Codes: G93.41 - Metabolic encephalopathy SNOMED: 94286156, 286375066 Assessment/Plan the pt lacks capacity to make decisions next of keen should makes all the decisions cont bilat restraints add haldol prn for agitation low dose Danna Martinez MD Oct 17, 2018 21:39
--- NOTE | 2018-10-17 22:00 | NUR ---
NURSE NOTES: pt. sating well on Venturi Mask at 55%- sating at 94%- pt. appears to be stable. Will continue to monitor pt. and with plan of care.
[2018-10-18] VITALS (17 sets, daily range): BP systolic 87–118; BP diastolic 22–62
[2018-10-18] MEDS: Piperacillin/Tazobactam 3.375 GM in NS 110 ML IVPB SCH ×2 (00:31→13:00)
[2018-10-18] MEDS: NovoLOG Insulin Flexpen SUBQ SCH ×4 (05:32→21:00)
--- NOTE | 2018-10-18 06:36 | NUR ---
NURSE NOTES: Spoke with [facility] pharmacist at [facility]- no change to heparin drip per Ptt results- but to confirm with doctor when heparin is restarted - if he would like to restart at same rate or not and when to order next Ptt test.
--- NOTE | 2018-10-18 06:58 | General Progress Note ---
Assessment/Plan Problem List: (1) CKD (chronic kidney disease) ICD Codes: N18.9 - Chronic kidney disease, unspecified SNOMED: 766250960 (2) Hypoglycemia ICD Codes: E16.2 - Hypoglycemia, unspecified SNOMED: 962968855 (3) Altered mental status ICD Codes: R41.82 - Altered mental status, unspecified SNOMED: 330072187 Assessment/Plan hypoglycemia due to Amaryl - treated with Octreotide - resolved Do not resume Amaryl after DC consider Januvia 25 mg daily for DM management as OP - add only if needed continue glucose monitoring ac / hs - Novolog low dose coverage only if POC glucose is > 200 mg/dL Subjective Allergies: Coded Allergies: PENICILLINS (Verified Allergy, Unknown, 10/09/18) All Systems: reviewed and negative except above Subjective events noted Item Value Date Time Bedside Blood Glucose 100 mg/dl 10/18/18 0532 Bedside Blood Glucose 119 mg/dl 10/17/18 2050 Bedside Blood Glucose 93 mg/dl 10/17/18 1630 Bedside Blood Glucose 116 mg/dl 10/17/18 1130 Bedside Blood Glucose 110 mg/dl 10/17/18 0500 Bedside Blood Glucose 102 mg/dl 10/17/18 0100 Objective Last 24 Hour Vital Signs Date Time Temp Pulse Resp B/P (MAP) Pulse Ox O2 Delivery O2 Flow Rate FiO2 10/18/18 04:00 96.5 60 24 101/62 (75) 95 10/18/18 04:00 77 10/18/18 04:00 Nasal Cannula 2.0 Room Air 10/18/18 00:00 80 10/18/18 00:00 Nasal Cannula 2.0 Room Air 10/18/18 00:00 96.3 81 24 95/44 (61) 97 10/17/18 23:50 73 20 99 10/17/18 23:39 88 27 Venturi Mask 10.0 45 10/17/18 23:39 Bi-pap 30 10/17/18 23:38 98 Bi-pap 30 10/17/18 20:30 90/62 10/17/18 20:00 97.8 70 18 95/63 (74) 94 10/17/18 20:00 74 10/17/18 20:00 Room Air 10/17/18 16:00 Room Air 10/17/18 16:00 79 10/17/18 16:00 96.8 72 18 102/58 (73) 95 10/17/18 12:00 Room Air 10/17/18 12:00 96.6 71 18 91/69 (76) 95 10/17/18 12:00 78 10/17/18 08:00 Room Air 10/17/18 08:00 85 10/17/18 08:00 97.0 81 18 118/79 (92) 100 Intake and Output 10/17/18 10/18/18 18:59 06:59 Intake Total 513.202 ml 391.720 ml Balance 513.202 ml 391.720 ml Intake Oral 100 ml IV Total 413.202 ml 391.720 ml # Voids 1 Laboratory Tests 10/17/18 11:35: Activated Partial Thromboplast Time 43H 10/17/18 12:55: Arterial Blood pH 7.379, Arterial Blood Partial Pressure CO2 25.6L, Arterial Blood Partial Pressure O2 51.3L, Arterial Blood HCO3 14.8*L, Arterial Blood Oxygen Saturation 82.1*L, Arterial Blood Base Excess -9.1*L, Tee Test Positive 10/17/18 15:55: Activated Partial Thromboplast Time 80H 10/18/18 04:00: Activated Partial Thromboplast Time 94H Height (Feet): 5 Height (Inches): 2.00 Weight (Pounds): 148 General Appearance: no apparent distress Neck: normal alignment Cardiovascular: normal rate Respiratory/Chest: lungs clear Abdomen: normal bowel sounds Pelvis: normal external exam Objective Current Medications Medications (Trade) Dose Ordered Sig/Ashely Route PRN Reason Start Time Stop Time Status Last Admin Dose Admin Acetaminophen (Tylenol) 650 mg Q6H PRN ORAL Mild Pain/Temp > 100.5 10/16/18 04:24 11/08/18 04:23 Aspirin (Ecotrin) 81 mg DAILY ORAL 10/16/18 09:00 11/09/18 08:59 10/17/18 09:54 Atorvastatin Calcium (Lipitor) 40 mg BEDTIME ORAL 10/16/18 21:00 11/09/18 20:59 10/17/18 20:25 Calcium Carbonate (Tums) 500 mg BID ORAL 10/16/18 09:00 11/09/18 08:59 10/17/18 09:53 Chlorhexidine Gluconate (Anai-Hex 2%) 1 applic DAILY@2000 TOPIC 10/16/18 20:00 11/12/18 19:59 10/17/18 20:25 Clopidogrel Bisulfate (Plavix) 75 mg DAILY ORAL 10/16/18 09:00 11/09/18 08:59 10/17/18 09:54 Dextrose (Dextrose 50%) 25 ml Q30M PRN IV Hypoglycemia 10/17/18 08:45 11/16/18 08:44 Dextrose (Dextrose 50%) 50 ml Q30M PRN IV Hypoglycemia 10/17/18 08:45 11/16/18 08:44 Dobutamine HCl 250 ml @ 10.05 mls/ hr Q24H IV 10/16/18 05:00 11/14/18 04:59 10/17/18 20:30 Docusate Sodium (Colace) 100 mg TWICE A DAY ORAL 10/16/18 09:00 11/09/18 08:59 10/17/18 09:54 Heparin Sodium/ Dextrose 500 ml @ 16.112 mls/ hr ADJUST PER PROTOCOL IV 10/17/18 06:45 11/10/18 04:59 10/17/18 20:31 Insulin Aspart (NovoLOG) BEFORE MEALS AND HS SUBQ 10/17/18 11:30 11/16/18 11:29 Latanoprost (Xalatan) 1 drop BEDTIME BOTH EYES 10/16/18 21:00 11/10/18 20:59 10/17/18 20:37 Ondansetron HCl (Zofran) 4 mg Q8HR PRN IVP Nausea & Vomiting 10/16/18 14:25 11/15/18 14:24 10/16/18 14:30 Pantoprazole (Protonix) 40 mg ACBREAKFAST ORAL 10/16/18 06:30 11/09/18 08:59 10/18/18 05:39 Piperacillin Sod/ Tazobactam Sod 3.375 gm/Sodium Chloride 110 ml @ 27.5 mls/hr Q12H IVPB 10/16/18 13:00 10/21/18 12:59 10/18/18 00:31 Promethazine HCl (Phenergan Plain) 6.25 mg Q6H PRN ORAL For Cough 10/16/18 04:33 11/10/18 04:32 Barry Schmitt MD Oct 18, 2018 06:58
--- NOTE | 2018-10-18 07:03 | NUR ---
HAND-OFF: Report given to Dolores RN, pt. stable and no signs of distres noted. Aware to f/u with DR. Mccurdy when procedure is done what rate to start Heparin at.
--- NOTE | 2018-10-18 07:06 | NUR ---
HAND-OFF: Report given to Elias OSMAN, pt. remains stable and no signs of distress noted. Addendum: 10/18/18 at 0713 by KALPANA MUIR RN RN Correction to msg above report given to Dolores OSMAN- not Elias OSMAN.
[2018-10-18] MEDS: Aspirin EC 81mg tab ORAL SCH (09:00)
[2018-10-18] MEDS: Tums 500mg ORAL SCH ×2 (09:49→17:13)
[2018-10-18] MEDS: Docusate 100mg cap ORAL SCH ×2 (09:49→17:13)
--- NOTE | 2018-10-18 11:11 | NUR ---
RD ASSESSMENT & RECOMMENDATIONS SEE CARE ACTIVITY FOR COMPLETE ASSESSMENT DAILY ESTIMATED NEEDS: Needs based on DM, CHF, renal dysfunction/ 64.5kg 25-30 kcals/kg 5408-3756 total kcals (without HD: 0.6-0.8) (with HD: 1.2-1.8) g protein/kg (without HD: 38-51) (with HD: 77-116) g total protein 20-22 mL/kg 9675-7844 total fluid mLs NUTRITION DIAGNOSIS: Altered nutrition related lab values R/T DM w/ hypoglycemia, CHF, renal dysfunction as evidenced by critically low hypoglycemic episodes, now improved (POC 93-139), elev BNP (23188), elev BUN/ creat (104/ 5.3 both trend up), low Na (127). CURRENT DIET:[facility] MED PO DIET RECOMMENDATIONS: [facility] MED, RENAL/ texture as tolerated ADDITIONAL RECOMMENDATIONS: * Calibrated bedscale wt, daily wts per policy (CHF dx) * Snacks TID to prevent hypoglycemia * Monitor lytes closely- worsening renal fxn -check follow up Phos level * Monitor texture modification needs: pt's dentures @ home denies chewing deficit at this time. * Monitor PO intake closely- poor at this time/ rec Nepro BID
--- NOTE | 2018-10-18 12:23 | General Progress Note ---
Assessment/Plan Problem List: (1) Acute metabolic encephalopathy ICD Codes: G93.41 - Metabolic encephalopathy SNOMED: 56109972, [id number] Assessment/Plan the pt lacks capacity to make decisions next of keen should makes all the decisions cont bilat restraints haldol prn for agitation zyprexa 2.5mg qhs Subjective Neurologic/Psychiatric: Reports: anxiety Allergies: Coded Allergies: PENICILLINS (Verified Allergy, Unknown, 10/09/18) Subjective the pt is less interactive today said a few words Objective Last 24 Hour Vital Signs Date Time Temp Pulse Resp B/P (MAP) Pulse Ox O2 Delivery O2 Flow Rate FiO2 10/18/18 07:00 98 Venturi Mask 14.0 55 10/18/18 07:00 Venturi Mask 14.0 55 10/18/18 04:00 96.5 60 24 101/62 (75) 95 10/18/18 04:00 77 10/18/18 04:00 Nasal Cannula 2.0 Room Air 10/18/18 00:00 80 10/18/18 00:00 Nasal Cannula 2.0 Room Air 10/18/18 00:00 96.3 81 24 95/44 (61) 97 10/17/18 23:50 73 20 99 10/17/18 23:39 88 27 Venturi Mask 10.0 45 10/17/18 23:39 Bi-pap 30 10/17/18 23:38 98 Bi-pap 30 10/17/18 20:30 90/62 10/17/18 20:00 97.8 70 18 95/63 (74) 94 10/17/18 20:00 74 10/17/18 20:00 Room Air 10/17/18 16:00 Room Air 10/17/18 16:00 79 10/17/18 16:00 96.8 72 18 102/58 (73) 95 Intake and Output 10/17/18 10/18/18 18:59 06:59 Intake Total 513.202 ml 391.720 ml Balance 513.202 ml 391.720 ml Intake Oral 100 ml IV Total 413.202 ml 391.720 ml # Voids 1 Laboratory Tests 10/17/18 12:55: Arterial Blood pH 7.379, Arterial Blood Partial Pressure CO2 25.6L, Arterial Blood Partial Pressure O2 51.3L, Arterial Blood HCO3 14.8*L, Arterial Blood Oxygen Saturation 82.1*L, Arterial Blood Base Excess -9.1*L, Tee Test Positive 10/17/18 15:55: Activated Partial Thromboplast Time 80H 10/18/18 04:00: Activated Partial Thromboplast Time 94H 10/18/18 11:25: Activated Partial Thromboplast Time 46H, Prothrombin Time 20.2H, Prothromb Time International Ratio 2.0H Height (Feet): 5 Height (Inches): 2.00 Weight (Pounds): 148 General Appearance: alert, confused, agitated Danna Sanchez MD Oct 18, 2018 12:23
[2018-10-18] MEDS ORDERED: Haloperidol 5mg/ml Inj IM PRN ×2 (12:30→17:00)
--- NOTE | 2018-10-18 13:00 | NUR ---
NURSE NOTES: STAT ABG DONE, HOOKED THE PATIENT TO BIPAP AND DR CONTRERAS TO TRANSFER THE PATIENT TO ICU. FAMILY IS AT THE BEDSIDE. WILL CONTINUE TO MONITOR.
--- NOTE | 2018-10-18 13:24 | Nephrology Progress Note ---
Assessment/Plan Problem List: (1) Acute kidney injury superimposed on CKD Assessment: worse. cardiorenal vs ATN. (2) CHF (congestive heart failure) (3) NSTEMI (non-ST elevated myocardial infarction) (4) Hypotension (5) Pneumonia (6) Hypoglycemia Plan HD today check ABG follow labs Discussed with RN Subjective Subjective lethargic Objective Objective Last 24 Hour Vital Signs Date Time Temp Pulse Resp B/P (MAP) Pulse Ox O2 Delivery O2 Flow Rate FiO2 10/18/18 12:00 73 10/18/18 12:00 95.4 70 17 99/57 (71) 100 10/18/18 08:00 95.7 72 18 99/49 (66) 100 10/18/18 08:00 73 10/18/18 07:00 98 Venturi Mask 14.0 55 10/18/18 07:00 Venturi Mask 14.0 55 10/18/18 04:00 96.5 60 24 101/62 (75) 95 10/18/18 04:00 77 10/18/18 04:00 Nasal Cannula 2.0 Room Air 10/18/18 00:00 80 10/18/18 00:00 Nasal Cannula 2.0 Room Air 10/18/18 00:00 96.3 81 24 95/44 (61) 97 10/17/18 23:50 73 20 99 10/17/18 23:39 88 27 Venturi Mask 10.0 45 10/17/18 23:39 Bi-pap 30 10/17/18 23:38 98 Bi-pap 30 10/17/18 20:30 90/62 10/17/18 20:00 97.8 70 18 95/63 (74) 94 10/17/18 20:00 74 10/17/18 20:00 Room Air 10/17/18 16:00 Room Air 10/17/18 16:00 79 10/17/18 16:00 96.8 72 18 102/58 (73) 95 Intake and Output 10/17/18 10/18/18 18:59 06:59 Intake Total 513.202 ml 391.720 ml Balance 513.202 ml 391.720 ml Intake Oral 100 ml IV Total 413.202 ml 391.720 ml # Voids 1 Laboratory Tests 10/17/18 15:55: Activated Partial Thromboplast Time 80H 10/18/18 04:00: Activated Partial Thromboplast Time 94H 10/18/18 11:25: Activated Partial Thromboplast Time 46H, Prothrombin Time 20.2H, Prothromb Time International Ratio 2.0H Height (Feet): 5 Height (Inches): 2.00 Weight (Pounds): 148 Cardiovascular: normal rate Respiratory/Chest: rhonchi - bilaterally Extremities: moderate edema Mario Porter MD Oct 18, 2018 13:24
--- NOTE | 2018-10-18 13:27 | Pulmonology Progress Note ---
Assessment/Plan Problems: (1) NSTEMI (non-ST elevated myocardial infarction) (2) CHF (congestive heart failure) (3) CAD (coronary artery disease) (4) CKD (chronic kidney disease) (5) Altered mental status (6) Acute kidney injury superimposed on CKD (7) Elevated d-dimer (8) Pneumonia (9) Respiratory acidosis Assessment/Plan ABG CXR Attempt to do VQ Titrate FiO2 HHN's Dobut F/U cards and renal recs Will need HD If HD started and unable to do VQ would recommend CT-A Continue Zosyn Aspiration precautions Continue IVUH for now FC Subjective Allergies: Coded Allergies: PENICILLINS (Verified Allergy, Unknown, 10/09/18) Subjective Seen in [facility], now on VM, BP borderline, renal function worse + SOB no cough no wheezing no F/C Objective Last 24 Hour Vital Signs Date Time Temp Pulse Resp B/P (MAP) Pulse Ox O2 Delivery O2 Flow Rate FiO2 10/18/18 12:00 73 10/18/18 12:00 95.4 70 17 99/57 (71) 100 10/18/18 08:00 95.7 72 18 99/49 (66) 100 10/18/18 08:00 73 10/18/18 07:00 98 Venturi Mask 14.0 55 10/18/18 07:00 Venturi Mask 14.0 55 10/18/18 04:00 96.5 60 24 101/62 (75) 95 10/18/18 04:00 77 10/18/18 04:00 Nasal Cannula 2.0 Room Air 10/18/18 00:00 80 10/18/18 00:00 Nasal Cannula 2.0 Room Air 10/18/18 00:00 96.3 81 24 95/44 (61) 97 10/17/18 23:50 73 20 99 10/17/18 23:39 88 27 Venturi Mask 10.0 45 10/17/18 23:39 Bi-pap 30 10/17/18 23:38 98 Bi-pap 30 10/17/18 20:30 90/62 10/17/18 20:00 97.8 70 18 95/63 (74) 94 10/17/18 20:00 74 10/17/18 20:00 Room Air 10/17/18 16:00 Room Air 10/17/18 16:00 79 10/17/18 16:00 96.8 72 18 102/58 (73) 95 Intake and Output 10/17/18 10/18/18 18:59 06:59 Intake Total 513.202 ml 391.720 ml Balance 513.202 ml 391.720 ml Intake Oral 100 ml IV Total 413.202 ml 391.720 ml # Voids 1 General Appearance: no acute distress, cachetic HEENT: normocephalic, atraumatic, anicteric, mucous membranes moist Respiratory/Chest: rhonchi Cardiovascular: normal peripheral pulses, normal rate, regular rhythm Abdomen: normal bowel sounds, soft, non tender, no organomegaly, non distended , no mass Extremities: no cyanosis, no clubbing, no edema Laboratory Tests 10/17/18 15:55: Activated Partial Thromboplast Time 80H 10/18/18 04:00: Activated Partial Thromboplast Time 94H 10/18/18 11:25: Activated Partial Thromboplast Time 46H, Prothrombin Time 20.2H, Prothromb Time International Ratio 2.0H Current Medications Medications (Trade) Dose Ordered Sig/Ashely Route PRN Reason Start Time Stop Time Status Last Admin Dose Admin Acetaminophen (Tylenol) 650 mg Q6H PRN ORAL Mild Pain/Temp > 100.5 10/16/18 04:24 11/08/18 04:23 Albumin Human 100 ml @ 200 mls/hr PRN PRN IV sbp<90 during hd 10/19/18 12:00 10/19/18 23:59 Aspirin (Ecotrin) 81 mg DAILY ORAL 10/16/18 09:00 11/09/18 08:59 10/17/18 09:54 Atorvastatin Calcium (Lipitor) 40 mg BEDTIME ORAL 10/16/18 21:00 11/09/18 20:59 10/17/18 20:25 Calcium Carbonate (Tums) 500 mg BID ORAL 10/16/18 09:00 11/09/18 08:59 10/18/18 09:49 Chlorhexidine Gluconate (Anai-Hex 2%) 1 applic DAILY@2000 TOPIC 10/16/18 20:00 11/12/18 19:59 10/17/18 20:25 Clopidogrel Bisulfate (Plavix) 75 mg DAILY ORAL 10/16/18 09:00 11/09/18 08:59 10/18/18 09:49 Dextrose (Dextrose 50%) 25 ml Q30M PRN IV Hypoglycemia 10/17/18 08:45 11/16/18 08:44 Dextrose (Dextrose 50%) 50 ml Q30M PRN IV Hypoglycemia 10/17/18 08:45 11/16/18 08:44 Dobutamine HCl 250 ml @ 10.05 mls/ hr Q24H IV 10/16/18 05:00 11/14/18 04:59 10/17/18 20:30 Docusate Sodium (Colace) 100 mg TWICE A DAY ORAL 10/16/18 09:00 11/09/18 08:59 10/18/18 09:49 Haloperidol Lactate (Haldol) 5 mg Q6H PRN IM Agitation 10/18/18 12:30 11/17/18 12:29 Heparin Sodium (Porcine) (Heparin Sod 1000 units/ml 10ml) 500 unit ONCE PRN IV dialysis 10/19/18 12:00 10/19/18 23:59 Heparin Sodium/ Dextrose 500 ml @ 16.112 mls/ hr ADJUST PER PROTOCOL IV 10/17/18 06:45 11/10/18 04:59 10/17/18 20:31 Insulin Aspart (NovoLOG) BEFORE MEALS AND HS SUBQ 10/17/18 11:30 11/16/18 11:29 Latanoprost (Xalatan) 1 drop BEDTIME BOTH EYES 10/16/18 21:00 11/10/18 20:59 10/17/18 20:37 Olanzapine (ZyPREXA) 2.5 mg BEDTIME ORAL 10/18/18 21:00 11/17/18 20:59 Ondansetron HCl (Zofran) 4 mg Q8HR PRN IVP Nausea & Vomiting 10/16/18 14:25 11/15/18 14:24 10/16/18 14:30 Pantoprazole (Protonix) 40 mg ACBREAKFAST ORAL 10/16/18 06:30 11/09/18 08:59 10/18/18 05:39 Piperacillin Sod/ Tazobactam Sod 3.375 gm/Sodium Chloride 110 ml @ 27.5 mls/hr Q12H IVPB 10/16/18 13:00 10/21/18 12:59 10/18/18 00:31 Promethazine HCl (Phenergan Plain) 6.25 mg Q6H PRN ORAL For Cough 10/16/18 04:33 11/10/18 04:32 Chidi Bourne MD Oct 18, 2018 13:27
[2018-10-18] MEDS ORDERED: Albuterol/Ipratropium 3ml neb HHN PRN ×2 (13:30→17:30)
--- NOTE | 2018-10-18 14:14 | NUR ---
NURSE NOTES:WOUND CARE NOTES: NURSE NOTES:WOUND CARE NOTES:Pt presents with Incontinence associated dermatitis cleft of buttocks with small partial thickness wound R gluteal cleft(L)0.3cm x (W)0.3cm. Non-blanching erythema noted to sacrum but non-tender when palpated. Pt has generalized edemae and noted to have multiple open blisters bilat lower ext .Open blister medial /distal RLE oozing small amt serous exudate. Edges are moist but adherent to base of wound.Open blister medial/distal LLE with 100% flap loss .wound bed moit-viable ,oozing small amt serous exudate(L)3.5cm x (W)3.5cm. Open blister dorsal L foot (L)4.5cm x (W)3.3cm.Wound bed moist -viable,edges moist but are adherent to base of wound.periwound without erythema. Open blisters noted to dorsums R 1st and 2nd metatarsals. Both wound beds are dry . Both heels boggy but blanchable and observed off-loaded with pillows. Pt encouraged to reposition frequently in bed. Tx.Plan:Cleanse blisters R lower ext and R foot with Saline .Apply Silvasorb gel .Change every 7 days and prn. Apply Moisture Barrier Paste (Calazime /Triad ) to buttocks with each perineal care. Reposition at least every 2hours or as tolerated. Off-load heels with pillow. APM/BEENA mattress
[2018-10-18] MEDS ORDERED: Lidocaine 1% Plain 30 ml INJ PRN (14:30)
[2018-10-18] MEDS ORDERED: Heparin 2000 units/Ns 1000ml INJ PRN (14:30)
--- NOTE | 2018-10-18 14:43 | NUR ---
RADIOLOGY DEPT CHEST X-RAY DONE.-P.DYE
--- NOTE | 2018-10-18 15:59 | Diagnostic Imaging Report ---
Indication: Acute renal failure Technique: Procedure performed at bedside. Procedural timeout performed. Total sterile technique, including sterile probe cover and sterile gel, sterile gloves, hand hygiene, hat, mask, sterile gown, large sterile drape, and preparation with 2% chlorhexidine utilized. Local anesthesia with 1% lidocaine. Under real-time ultrasound guidance, puncture right internal jugular vein using 21-gauge needle, passage 0.018 guidewire, insertion 4 Israeli micropuncture introducer, passage 0.035 guidewire, over which was passed serial dilators and then a 13 Israeli 15 cm triple-lumen temporary dialysis catheter. Dilator and catheter passage were difficult, and after placement the catheter would not aspirate. This access was therefore abandoned, and the procedure repeated this time using the right external jugular vein as access. This time, the catheter was placed successfully. Guidewire was removed. Catheter ports were aspirated and flushed. The catheter was fixed to the skin. Patient tolerated procedure well. A chest x-ray was obtained, documents catheter tip position at the cavoatrial junction. Comparison: none Findings: As above Impression: Successful bedside placement of right external jugular temporary dialysis catheter, as described.
[2018-10-18] MEDS ORDERED: Lidocaine 1% Plain 30 ml INJ ONE (16:30)
[2018-10-18] MEDS ORDERED: Heparin Sod 1000 units/ml 10ml IV PRN (16:30)
[2018-10-18] MEDS ORDERED: Promethazine Plain 6.25mg/5ml ORAL PRN (16:45)
[2018-10-18] MEDS: DOBUTamine 250mg/250ml Premix 250 ML IV SCH ×2 (17:01→23:42)
--- NOTE | 2018-10-18 17:11 | NUR ---
NURSE NOTES: CALLED AND LEFT A MESSAGE TO DR BEN DIAZ ABG RESULT. ON BIPAP /, FIO2 AT 40%. TOLERATING BIPAP AND STARTED ON DIALYSIS. NO SIGNS OF DISTRESS. WILL CONTINUE TO MONITOR.
--- NOTE | 2018-10-18 17:50 | Diagnostic Imaging Report ---
Indication: Shortness of breath Technique: One view of the chest Comparison: 10/16/2018 Findings: Left arm PICC remains. There is improved aeration of the right mid and lower lung, with decreased consolidation. Bilateral pleural effusions persist. The heart remains enlarged Impression: Decreased right lung infiltrates versus edema, over 2 days Otherwise stable findings as described
[2018-10-18 18:06] LABS: HEMATOCRIT 25.7 % (42.0-52.0); HEMOGLOBIN 7.8 G/DL (14.2-18.0); MEAN CORPUSCULAR VOLUME 86 FL (80-99); PLATELET COUNT 231 K/UL (150-450); RED BLOOD COUNT 2.97 M/UL (4.70-6.10); RED CELL DISTRIBUTION WIDTH 19.1 % (11.6-14.8)
[2018-10-18 18:07] LABS: ANION GAP 24 mmol/L (5-15); BLOOD UREA NITROGEN 120 mg/dL (7-18); CALCIUM 6.2 MG/DL (8.5-10.1); CARBON DIOXIDE 18 MMOL/L (21-32); CHLORIDE 86 MMOL/L (98-107); CREATININE 6.4 MG/DL (0.55-1.30); POTASSIUM 5.7 MMOL/L (3.5-5.1); SODIUM 127 MMOL/L (136-145)
--- NOTE | 2018-10-18 18:29 | NUR ---
NURSE NOTES: SPOKE WITH DR SWIFT RE TROPONIN. NO NEW ORDER TO START HEPARIN DRIP. TOLERATING BIPAP AND DIALYSIS. NO SIGNS OF DISTRESS. WILL CONTINUE TO MONITOR.
--- NOTE | 2018-10-18 18:55 | NUR ---
NURSE NOTES: SPOKE WITH DR CONTRERAS AND HE ORDERED STAT INTUBATION. CALLED AND SPOKE WITH DR TOPETE RE INTUBATION. INFORMED DR CONTRERAS RE THE PLAN. WILL CONTINUE TO MONITOR.
[2018-10-18] MEDS ORDERED: Albuterol/Ipratropium 3ml neb HHN SCH (19:00)
--- NOTE | 2018-10-18 19:15 | NUR ---
HAND-OFF: Report given to Danielle Castro RN.
[2018-10-18] MEDS: Dyna-Hex 2% Top Sol 2oz TOPIC SCH (19:42)
--- NOTE | 2018-10-18 19:43 | NUR ---
Recvd.on a BIPAP,See settings.Resp.unlabored.Sat.100%.Occ.Forgot Limitations on Bila.soft wrist restraint prev.self-injury.Alert able to follows simple command.Hugh Cath (R) IJ S/P HD.PICC (L) upper arm,Dobutamine drip in progress at 2.5mcg/kg/min See V/S.Scope SR with BBB.Pos. chg made comfortable.ABG at 1999.
--- NOTE | 2018-10-18 20:21 | Cardiology Progress Note ---
Assessment/Plan Assessment/Plan 1. Hypoglycemia secondary to medication. 2. Diabetes mellitus previously. 3. Acute Respiratory inusf / hemoptysis 4. History of ischemic cardiomyopathy with ejection fraction of 40%. 5. Mitral regurgitation, [id number] degree on recent echocardiogram last week. 6. Moderate tricuspid regurgitation. 7. Mild pulmonary hypertension with 43 through 48. 8. Pleural effusions history. 9. Abnormal gastric endoscopy, suspicious for malignancy with submucosal resection. 10. Aortic stenosis. 11. Hyperlipidemia. 12. Prostate cancer. 13. Abnormal facial asymmetry. 14. CAD 15. hypotension 16. NSTEMI demand related vs PE related doubt acs 17. acute on chronic renal failure 18. metabolic acidosis v/q was ordered but not done noted cr increased on dobutamine still resume ufh laater tonite rxn pneumonia for now transfer to [facility] echo reviwed has infor post swma and mod mr and ef probley 35-40% , rv is not enlarge ivc ws enlarged at the time was done s/p dialysi appreciated psych input d/w rn d/w son Subjective ROS Limited/Unobtainable: Yes Subjective in icu on bipap s/p dialysis Objective Last 24 Hour Vital Signs Date Time Temp Pulse Resp B/P (MAP) Pulse Ox O2 Delivery O2 Flow Rate FiO2 10/18/18 20:00 Bi-pap Room Air 10/18/18 19:30 96.7 80 19 101/47 (65) 100 10/18/18 19:07 Bi-pap 35.0 10/18/18 19:00 80 21 118/38 (64) 100 10/18/18 18:00 76 12 110/37 (61) 100 10/18/18 17:01 98/38 10/18/18 17:00 74 14 94/32 (52) 100 10/18/18 16:52 78 21 100 Facial 40 10/18/18 16:00 Bi-pap Room Air 10/18/18 16:00 96 10/18/18 16:00 96.8 80 14 90/30 (50) 100 10/18/18 15:57 64 19 100 Facial 40 10/18/18 12:00 73 10/18/18 12:00 95.4 70 17 99/57 (71) 100 10/18/18 12:00 Bi-pap Room Air 10/18/18 08:00 Nasal Cannula 2.0 Room Air 2/11/19 08:00 95.7 72 18 99/49 (66) 100 10/18/18 08:00 73 10/18/18 07:00 98 Venturi Mask 14.0 55 10/18/18 07:00 Venturi Mask 14.0 55 10/18/18 04:00 96.5 60 24 101/62 (75) 95 10/18/18 04:00 77 10/18/18 04:00 Nasal Cannula 2.0 Room Air 10/18/18 00:00 80 10/18/18 00:00 Nasal Cannula 2.0 Room Air 10/18/18 00:00 96.3 81 24 95/44 (61) 97 10/17/18 23:50 73 20 99 10/17/18 23:39 88 27 Venturi Mask 10.0 45 10/17/18 23:39 Bi-pap 30 10/17/18 23:38 98 Bi-pap 30 10/17/18 20:30 90/62 General Appearance: no apparent distress, lethargic, other - bipap Neck: supple Cardiovascular: normal rate, regular rhythm Respiratory/Chest: lungs clear - ant Abdomen: normal bowel sounds, non tender, soft Extremities: moderate edema Intake and Output 10/17/18 10/18/18 19:00 07:00 Intake Total 523.944 ml 375.608 ml Balance 523.944 ml 375.608 ml Intake Oral 100 ml IV Total 423.944 ml 375.608 ml # Voids 1 Laboratory Tests Test 10/18/18 04:00 10/18/18 11:25 10/18/18 13:25 10/18/18 16:45 Activated Partial Thromboplast Time 94 SEC (23-33) H 46 SEC (23-33) H Prothrombin Time 20.2 SEC (9.30-11.50) H Prothromb Time International Ratio 2.0 (0.9-1.1) H Arterial Blood pH 7.113 (7.350-7.450) 7.145 (7.350-7.450) Arterial Blood Partial Pressure CO2 40.8 mmHg (35.0-45.0) 40.5 mmHg (35.0-45.0) Arterial Blood Partial Pressure O2 43.4 mmHg (75.0-100.0) 180.9 mmHg (75.0-100.0) H Arterial Blood HCO3 12.8 mmol/L (22.0-26.0) *L 13.6 mmol/L (22.0-26.0) *L Arterial Blood Oxygen Saturation 57.9 % (95-100) *L 98.7 % (95-100) Arterial Blood Base Excess -15.7 (-2-2) *L -14.4 (-2-2) *L Tee Test Positive Positive Test 10/18/18 17:15 White Blood Count 13.0 K/UL (4.8-10.8) H Red Blood Count 2.97 M/UL (4.70-6.10) L Hemoglobin 7.8 G/DL (14.2-18.0) L Hematocrit 25.7 % (42.0-52.0) L Mean Corpuscular Volume 86 FL (80-99) Mean Corpuscular Hemoglobin 26.4 PG (27.0-31.0) L Mean Corpuscular Hemoglobin Concent 30.6 G/DL (32.0-36.0) L Red Cell Distribution Width 19.1 % (11.6-14.8) H Platelet Count 231 K/UL (150-450) Mean Platelet Volume 4.8 FL (6.5-10.1) L Neutrophils (%) (Auto) % (45.0-75.0) Lymphocytes (%) (Auto) % (20.0-45.0) Monocytes (%) (Auto) % (1.0-10.0) Eosinophils (%) (Auto) % (0.0-3.0) Basophils (%) (Auto) % (0.0-2.0) Neutrophils % (Manual) Pending Lymphocytes % (Manual) Pending Platelet Estimate Pending Platelet Morphology Pending Activated Partial Thromboplast Time 48 SEC (23-33) H Sodium Level 127 MMOL/L (136-145) L Potassium Level 5.7 MMOL/L (3.5-5.1) H Chloride Level 86 MMOL/L (98-107) L Carbon Dioxide Level 18 MMOL/L (21-32) L Anion Gap 24 mmol/L (5-15) H Blood Urea Nitrogen 120 mg/dL (7-18) H Creatinine 6.4 MG/DL (0.55-1.30) H Estimat Glomerular Filtration Rate mL/min (>60) Glucose Level 125 MG/DL (74-106) H Calcium Level 6.2 MG/DL (8.5-10.1) L Troponin I 0.657 ng/mL (0.000-0.056) Hepatitis A IgM Antibody Pending Hepatitis B Surface Antigen Pending Hepatitis B Core IgM Antibody Pending Hepatitis C Antibody Pending Dg Key MD Oct 18, 2018 20:21
[2018-10-18] MEDS ORDERED: OLANZapine 2.5mg tab ORAL SCH ×2 (21:00)
[2018-10-18] MEDS: Latanoprost 0.005% Opth 2.5ml Soln BOTH EYES SCH (21:13)
[2018-10-18] MEDS: Albuterol/Ipratropium 3ml neb HHN SCH (21:18)
[2018-10-18] MEDS: Atorvastatin 20mg tab ORAL SCH (21:46)
--- NOTE | 2018-10-18 22:00 | NUR ---
NURSE NOTES: HS Care rendered.Pos.chg.made comfortable.Backrub with Lotion.Remain confused,disoriented.Re-oriented,reassured.Seen and exam.by Norman KangMaintain on BIPAP.Cont.on IV Hydration.Voided Freely.See I/O. Addendum: 10/19/18 at 0151 by MELONIE YOUNG RN Seen Exam.by Vidal WileyNot .
[2018-10-19] VITALS (58 sets, daily range): BP systolic 58–127; BP diastolic 11–99
--- NOTE | 2018-10-19 00:10 | NUR ---
NURSE NOTES: Repositioned,Kept clean and comfortable.See V/S.Scope rhythm same.Cont.on Dobutamine drip at 2.5mcg/kg/min.denies any CP.
[2018-10-19] MEDS ORDERED: Piperacillin/Tazobactam 3.375 GM in NS 110 ML IVPB SCH (01:00)
[2018-10-19] MEDS: Albuterol/Ipratropium 3ml neb HHN SCH ×4 (01:26→19:04)
--- NOTE | 2018-10-19 02:00 | NUR ---
NURSE NOTES: Doze off/on.Status same.Cont.Ca.Monitoring.
--- NOTE | 2018-10-19 04:30 | NUR ---
NURSE NOTES: Ranjit Arriaza.Remain Lethargic,reacts to pain stimulation.Restraints D/C.Cont on Dobutamine drip at same rate.Hepa.drip inf. at 12u/kg/hr.No Visible active bleeding noted.
[2018-10-19 06:10] LABS: HEMATOCRIT 23.9 % (42.0-52.0); HEMOGLOBIN 7.2 G/DL (14.2-18.0); MEAN CORPUSCULAR VOLUME 85 FL (80-99); PLATELET COUNT 186 K/UL (150-450); RED BLOOD COUNT 2.82 M/UL (4.70-6.10)
[2018-10-19] MEDS: NovoLOG Insulin Flexpen SUBQ SCH ×4 (06:27→21:00)
--- NOTE | 2018-10-19 06:30 | NUR ---
NURSE NOTES: Blood sugar crit.Low.D50 IVP admin.will Re-check again after 1hr.
[2018-10-19 06:31] LABS: ANION GAP 23 mmol/L (5-15); BLOOD UREA NITROGEN 89 mg/dL (7-18); CALCIUM 6.5 MG/DL (8.5-10.1); CARBON DIOXIDE 19 MMOL/L (21-32); CHLORIDE 91 MMOL/L (98-107); CREATININE 5.2 MG/DL (0.55-1.30); POTASSIUM 5.3 MMOL/L (3.5-5.1); SODIUM 133 MMOL/L (136-145)
[2018-10-19] MEDS ORDERED: Heparin 25,000u/D5W 500ml 500 ML IV SCH ×5 (06:45→16:45)
--- NOTE | 2018-10-19 06:58 | General Progress Note ---
Assessment/Plan Problem List: (1) CKD (chronic kidney disease) ICD Codes: N18.9 - Chronic kidney disease, unspecified SNOMED: 461918469 (2) Hypoglycemia ICD Codes: E16.2 - Hypoglycemia, unspecified SNOMED: 658150855 (3) Altered mental status ICD Codes: R41.82 - Altered mental status, unspecified SNOMED: 898743686 Assessment/Plan hypoglycemia due to Amaryl - treated with Octreotide - resolved and now recurred half life of Amaryl has been prolonged due to worsening of renal failure and significantly reduced GFR resume Octreotide 50 mg sub Q every 8 hours Subjective Allergies: Coded Allergies: PENICILLINS (Verified Allergy, Unknown, 10/09/18) All Systems: reviewed and negative except above Subjective events noted transferred to ICU hypoglycemia this morning as low as 22 mg/dl Item Value Date Time Glucose Level 22 MG/DL *L # 10/19/18 0600 Bedside Blood Glucose 80 mg/dl 10/18/18 2100 Bedside Blood Glucose 100 mg/dl 10/18/18 1630 Bedside Blood Glucose 80 mg/dl 10/18/18 1130 Bedside Blood Glucose 100 mg/dl 10/18/18 0532 Objective Last 24 Hour Vital Signs Date Time Temp Pulse Resp B/P (MAP) Pulse Ox O2 Delivery O2 Flow Rate FiO2 10/19/18 06:00 65 19 88/22 (44) 100 10/19/18 05:30 68 19 93/35 (54) 100 10/19/18 05:00 66 20 100 Facial 35 10/19/18 05:00 68 18 80/29 (46) 100 10/19/18 04:30 68 20 83/26 (45) 100 10/19/18 04:00 96.8 68 19 84/26 (45) 100 10/19/18 03:30 67 19 86/26 (46) 100 10/19/18 03:15 66 16 100 Facial 35 10/19/18 03:00 70 15 95/29 (51) 100 10/19/18 02:30 66 17 91/26 (47) 100 10/19/18 02:00 67 17 92/18 (42) 100 10/19/18 01:39 70 17 100 Bi-pap 35 10/19/18 01:30 68 17 92/24 (46) 100 10/19/18 01:26 72 18 100 Bi-pap 35 10/19/18 01:00 68 17 95/26 (49) 100 10/19/18 00:38 70 22 100 Facial 35 10/19/18 00:30 67 19 93/24 (47) 100 10/19/18 00:00 Bi-pap Room Air 10/19/18 00:00 96.8 67 19 98/35 (56) 100 10/18/18 23:42 88/22 10/18/18 23:30 66 21 88/22 (44) 100 10/18/18 23:18 67 25 100 Facial 35 10/18/18 23:00 74 22 97/36 (56) 100 10/18/18 22:30 74 19 87/31 (49) 100 10/18/18 22:00 75 18 92/39 (56) 100 10/18/18 21:31 74 21 100 Bi-pap 35 10/18/18 21:30 77 15 95/37 (56) 100 10/18/18 21:18 76 22 100 Bi-pap 35 10/18/18 21:18 76 22 100 Facial 35 10/18/18 21:00 76 15 97/41 (59) 100 10/18/18 20:48 Bi-pap 35 10/18/18 20:48 100 Bi-pap 35 10/18/18 20:48 75 19 100 Full Face 35 10/18/18 20:30 76 15 95/39 (57) 100 10/18/18 20:00 77 18 100/37 (58) 100 10/18/18 20:00 76 10/18/18 20:00 Bi-pap Room Air 10/18/18 19:30 96.7 80 19 101/47 (65) 100 10/18/18 19:07 Bi-pap 35.0 10/18/18 19:00 80 21 118/38 (64) 100 10/18/18 18:00 76 12 110/37 (61) 100 10/18/18 17:01 98/38 10/18/18 17:00 74 14 94/32 (52) 100 10/18/18 16:52 78 21 100 Facial 40 10/18/18 16:00 Bi-pap Room Air 10/18/18 16:00 96 10/18/18 16:00 96.8 80 14 90/30 (50) 100 10/18/18 15:57 64 19 100 Facial 40 10/18/18 12:00 73 10/18/18 12:00 95.4 70 17 99/57 (71) 100 10/18/18 12:00 Bi-pap Room Air 10/18/18 08:00 Nasal Cannula 2.0 Room Air 10/18/18 08:00 95.7 72 18 99/49 (66) 100 10/18/18 08:00 73 10/18/18 07:00 98 Venturi Mask 14.0 55 10/18/18 07:00 Venturi Mask 14.0 55 Intake and Output 10/18/18 10/19/18 19:00 07:00 Intake Total 240.10 ml 233.736 ml Output Total 1500 ml Balance 240.10 ml -1266.264 ml Intake Oral 20 ml 50 ml IV Total 220.10 ml 183.736 ml Hemodialysis UF 1500 ml # Bowel Movements 2 2 Laboratory Tests 10/18/18 11:25: Prothrombin Time 20.2H, Prothromb Time International Ratio 2.0H, Activated Partial Thromboplast Time 46H 10/18/18 13:25: Arterial Blood pH 7.113*L, Arterial Blood Partial Pressure CO2 40.8, Arterial Blood Partial Pressure O2 43.4*L, Arterial Blood HCO3 12.8*L, Arterial Blood Oxygen Saturation 57.9*L, Arterial Blood Base Excess -15.7*L, Tee Test Positive 10/18/18 16:45: Arterial Blood pH 7.145*L, Arterial Blood Partial Pressure CO2 40.5, Arterial Blood Partial Pressure O2 180.9H, Arterial Blood HCO3 13.6*L, Arterial Blood Oxygen Saturation 98.7, Arterial Blood Base Excess -14.4*L, Tee Test Positive 10/18/18 17:15: Activated Partial Thromboplast Time 48H, White Blood Count 13.0H, Red Blood Count 2.97L, Hemoglobin 7.8L, Hematocrit 25.7L, Mean Corpuscular Volume 86, Mean Corpuscular Hemoglobin 26.4L, Mean Corpuscular Hemoglobin Concent 30.6L, Red Cell Distribution Width 19.1H, Platelet Count 231, Mean Platelet Volume 4.8L , Neutrophils (%) (Auto) , Lymphocytes (%) (Auto) , Monocytes (%) (Auto) , Eosinophils (%) (Auto) , Basophils (%) (Auto) , Differential Total Cells Counted 100, Neutrophils % (Manual) 87H, Lymphocytes % (Manual) 6L, Monocytes % (Manual) 4, Eosinophils % (Manual) 0, Basophils % (Manual) 0, Band Neutrophils 3 , Platelet Estimate Adequate, Platelet Morphology Normal, Hypochromasia 2+, Anisocytosis 2+, Sodium Level 127L, Potassium Level 5.7H, Chloride Level 86L, Carbon Dioxide Level 18L, Anion Gap 24H, Blood Urea Nitrogen 120H, Creatinine 6.4H, Estimat Glomerular Filtration Rate , Glucose Level 125H, Calcium Level 6.2L, Troponin I 0.657H, Hepatitis A IgM Antibody [Pending], Hepatitis B Surface Antigen [Pending], Hepatitis B Core IgM Antibody [Pending], Hepatitis C Antibody [Pending] 10/18/18 20:37: Arterial Blood pH 7.294L, Arterial Blood Partial Pressure CO2 45.5H, Arterial Blood Partial Pressure O2 120.7H, Arterial Blood HCO3 21.6L, Arterial Blood Oxygen Saturation 97.3, Arterial Blood Base Excess -4.7L, Tee Test Positive 10/19/18 06:00: White Blood Count 16.0H, Red Blood Count 2.82L, Hemoglobin 7.2L, Hematocrit 23.9L, Mean Corpuscular Volume 85, Mean Corpuscular Hemoglobin 25.6L, Mean Corpuscular Hemoglobin Concent 30.2L, Red Cell Distribution Width 20.0H, Platelet Count 186, Mean Platelet Volume 6.5, Neutrophils (%) (Auto) , Lymphocytes (%) (Auto) , Monocytes (%) (Auto) , Eosinophils (%) (Auto) , Basophils (%) (Auto) , Neutrophils % (Manual) [Pending], Lymphocytes % (Manual) [Pending], Platelet Estimate [Pending], Platelet Morphology [Pending], Activated Partial Thromboplast Time [Pending], Sodium Level 133L, Potassium Level 5.3H, Chloride Level 91L, Carbon Dioxide Level 19L, Anion Gap 23H, Blood Urea Nitrogen 89H, Creatinine 5.2H, Estimat Glomerular Filtration Rate , Glucose Level 22#*L, Calcium Level 6.5L Height (Feet): 5 Height (Inches): 2.00 Weight (Pounds): 148 General Appearance: moderate distress Neck: normal alignment Cardiovascular: normal rate Respiratory/Chest: decreased breath sounds Abdomen: normal bowel sounds Objective Current Medications Medications (Trade) Dose Ordered Sig/Ashely Route PRN Reason Start Time Stop Time Status Last Admin Dose Admin Acetaminophen (Tylenol) 650 mg Q6H PRN ORAL Mild Pain/Temp > 100.5 10/18/18 16:30 11/08/18 04:23 Albumin Human 100 ml @ 200 mls/hr PRN PRN IV sbp<90 during hd 10/18/18 16:30 10/19/18 23:59 10/18/18 17:49 Albuterol/ Ipratropium (Albuterol/ Ipratropium) 3 ml Q4H PRN HHN Shortness of Breath 10/18/18 17:30 10/23/18 13:29 Albuterol/ Ipratropium (Albuterol/ Ipratropium) 3 ml Q6HRT HHN 10/18/18 19:00 10/23/18 18:59 10/19/18 01:26 Aspirin (Ecotrin) 81 mg DAILY ORAL 10/19/18 09:00 11/09/18 08:59 Atorvastatin Calcium (Lipitor) 40 mg BEDTIME ORAL 10/18/18 21:00 11/09/18 20:59 10/18/18 21:46 Calcium Carbonate (Tums) 500 mg BID ORAL 10/18/18 18:00 11/09/18 08:59 Chlorhexidine Gluconate (Anai-Hex 2%) 1 applic DAILY@2000 TOPIC 10/18/18 20:00 11/12/18 19:59 10/18/18 19:42 Clopidogrel Bisulfate (Plavix) 75 mg DAILY ORAL 10/19/18 09:00 11/09/18 08:59 Dextrose (Dextrose 50%) 25 ml Q30M PRN IV Hypoglycemia 10/18/18 16:45 11/16/18 08:44 Dextrose (Dextrose 50%) 50 ml Q30M PRN IV Hypoglycemia 10/18/18 16:45 11/16/18 08:44 10/19/18 06:26 Dobutamine HCl 250 ml @ 10.05 mls/ hr Q24H IV 10/18/18 16:30 11/17/18 16:29 10/18/18 23:42 Docusate Sodium (Colace) 100 mg TWICE A DAY ORAL 10/18/18 18:00 11/09/18 08:59 Haloperidol Lactate (Haldol) 5 mg Q6H PRN IM Agitation 10/18/18 17:00 11/17/18 16:59 Heparin Sodium (Porcine) (Heparin Sod 1000 units/ml 10ml) 500 unit ONCE PRN IV FOR HD USE ONLY 10/18/18 16:30 10/19/18 23:59 Heparin Sodium/ Dextrose 500 ml @ 16.112 mls/ hr ADJUST PER PROTOCOL IV 10/19/18 00:00 11/18/18 00:00 10/19/18 00:00 Insulin Aspart (NovoLOG) BEFORE MEALS AND HS SUBQ 10/18/18 16:30 11/16/18 11:29 Latanoprost (Xalatan) 1 drop BEDTIME BOTH EYES 10/18/18 21:00 11/10/18 20:59 10/18/18 21:13 Olanzapine (ZyPREXA) 2.5 mg BEDTIME ORAL 10/18/18 21:00 11/17/18 20:59 10/18/18 21:46 Ondansetron HCl (Zofran) 4 mg Q8H PRN IVP Nausea & Vomiting 10/18/18 17:00 11/17/18 16:59 Pantoprazole (Protonix) 40 mg ACBREAKFAST ORAL 10/19/18 06:30 11/09/18 08:59 10/19/18 06:13 Piperacillin Sod/ Tazobactam Sod 3.375 gm/Sodium Chloride 110 ml @ 27.5 mls/hr Q12H IVPB 10/19/18 01:00 10/21/18 12:59 10/19/18 01:00 Promethazine HCl (Phenergan Plain) 6.25 mg Q6H PRN ORAL For Cough 10/18/18 16:45 11/10/18 04:32 Barry Schmitt MD Oct 19, 2018 06:58
--- NOTE | 2018-10-19 07:11 | NUR ---
RESPIRATORY NOTE: Received pt on Bipap 17/5- 35% FiO2, pt is lethargic, eyes open but no alert and non arousal. Take off the mask to release the pressure and check for skin integrity. There is redness around nose bridge, cheeks and chin noted. Re- apply the new foam tapes aroung the forehead, cheeks and chin , changed to full face mask. Notified JACQUI Moreno about the redness. Alarms are set and audible, Bipap is plugged into the red outlet, ambu bag is at bedside. No SOB or resp distress noted, pt is resting comfortably. Will continue to monitor pt.
--- NOTE | 2018-10-19 07:15 | NUR ---
NURSE NOTES: Received pt from JACQUI Porter. Patient is lethargic, but opens eyes spontaneously. Responds to tactile stimuli. Orally intubated ETT 7.5/22cm at lip line, AC 22/TV500/Fio2 35%/Peep+5, SPo2 100%, RR 22. KIM PICC running D5NS@80cc/hr, asymptomatic and patent. Pt is NSR on director of cardiac rehabilitation; HR 92. NPO status maintained since midnight, patient has EGD w/Colonoscopy scheduled today. Consent signed by grand daughter. FC draining yellow urine to gravity, no hematuria noted. Seizure precautions in place. Bed locked, alarmed and in lowest position. Will continue to monitor. Addendum: 10/19/18 at 1040 by ORLIN SONG RN Wrong patient
--- NOTE | 2018-10-19 07:15 | NUR ---
NURSE NOTES: Received pt from JACQUI Porter. patient is lethargic; unable to arouse; does not respond to tactile stimuli. Pupils are sluggish. BP 78/32, in Trendelenburg position. Notified Dr Bourne, awaiting for call back. Patient is on BIPAP 15/5, Fio2 35%, RR 12, SPo2 100%. Hugh cath noted on Right IJ, dressing c/d/i. INA PICC running Dobutrex @5mcg/kg/min and Heparin 12units/kg/hr. NSR on playground monitor with HR 84. No s/sx of bleeding noted.patient is unable to eat or take PO medications as he is too lethargic. pt is anuric. Safety precautions as followed. Awaiting for MD call back.
--- NOTE | 2018-10-19 07:19 | NUR ---
HAND-OFF: Report given to MICHAEL.
--- NOTE | 2018-10-19 07:47 | Pulmonolgy Critical Care Note ---
Critical Care - Asmt/Plan Problems: (1) CHF (congestive heart failure) (2) CAD (coronary artery disease) (3) NSTEMI (non-ST elevated myocardial infarction) (4) Respiratory acidosis (5) Hemoptysis (6) Hypoglycemia (7) Pneumonia (8) Hypotension (9) Elevated d-dimer (10) Acute kidney injury superimposed on CKD Assessment & Plan: S/P initiation of HD Respiratory: monitor respiratory rate, adjust FIO2, CXR, ABG, other - May need intubation, CT-A if ok with renal, continue IVUH for now Cardiac: continue to monitor HR/BP, other - Continue Dobut, add NE to keep MAP > 60 Renal: keep IV fluid - D5NS@30, check electrolytes, other - HD per renal Infectious Disease: continue antibiotics - Zosyn Gastrointestinal: hold feedings Endocrine: monitor blood sugar, continue sliding scale insulin, other - F/U ENDO RECS Hematologic: monitor H/H, other - Transufse 1U PRBC Neurologic: keep patient comfortable Prophylaxis: Protonix, Heparin Disposition: keep in ICU Time Spent (Minutes): 40 Notes Reviewed: plate worker, cardio, renal Discussed with: nurses, consultants Critical Care - Objective Last 24 Hour Vital Signs Date Time Temp Pulse Resp B/P (MAP) Pulse Ox O2 Delivery O2 Flow Rate FiO2 10/19/18 07:23 81 20 100 Bi-pap 35 10/19/18 07:13 83 25 100 Bi-pap 35 10/19/18 07:11 83 25 100 Facial 35 10/19/18 06:00 65 19 88/22 (44) 100 10/19/18 05:30 68 19 93/35 (54) 100 10/19/18 05:00 66 20 100 Facial 35 10/19/18 05:00 68 18 80/29 (46) 100 10/19/18 04:30 68 20 83/26 (45) 100 10/19/18 04:00 68 10/19/18 04:00 50 10/19/18 04:00 Bi-pap Room Air 10/19/18 04:00 96.8 68 19 84/26 (45) 100 10/19/18 03:30 67 19 86/26 (46) 100 10/19/18 03:15 66 16 100 Facial 35 10/19/18 03:00 70 15 95/29 (51) 100 10/19/18 02:30 66 17 91/26 (47) 100 10/19/18 02:00 67 17 92/18 (42) 100 10/19/18 01:39 70 17 100 Bi-pap 35 10/19/18 01:30 68 17 92/24 (46) 100 10/19/18 01:26 72 18 100 Bi-pap 35 10/19/18 01:00 68 17 95/26 (49) 100 10/19/18 00:38 70 22 100 Facial 35 10/19/18 00:30 67 19 93/24 (47) 100 10/19/18 00:00 67 10/19/18 00:00 50 10/19/18 00:00 Bi-pap Room Air 10/19/18 00:00 96.8 67 19 98/35 (56) 100 10/18/18 23:42 88/22 10/18/18 23:30 66 21 88/22 (44) 100 10/18/18 23:18 67 25 100 Facial 35 10/18/18 23:00 74 22 97/36 (56) 100 10/18/18 22:30 74 19 87/31 (49) 100 10/18/18 22:00 75 18 92/39 (56) 100 10/18/18 21:31 74 21 100 Bi-pap 35 10/18/18 21:30 77 15 95/37 (56) 100 10/18/18 21:18 76 22 100 Bi-pap 35 10/18/18 21:18 76 22 100 Facial 35 10/18/18 21:00 76 15 97/41 (59) 100 10/18/18 20:48 Bi-pap 35 10/18/18 20:48 100 Bi-pap 35 10/18/18 20:48 75 19 100 Full Face 35 10/18/18 20:30 76 15 95/39 (57) 100 10/18/18 20:00 77 18 100/37 (58) 100 10/18/18 20:00 76 10/18/18 20:00 50 10/18/18 20:00 Bi-pap Room Air 10/18/18 19:30 96.7 80 19 101/47 (65) 100 10/18/18 19:07 Bi-pap 35.0 10/18/18 19:00 80 21 118/38 (64) 100 10/18/18 18:00 76 12 110/37 (61) 100 10/18/18 17:01 98/38 10/18/18 17:00 74 14 94/32 (52) 100 10/18/18 16:52 78 21 100 Facial 40 10/18/18 16:00 Bi-pap Room Air 10/18/18 16:00 96 10/18/18 16:00 96.8 80 14 90/30 (50) 100 10/18/18 15:57 64 19 100 Facial 40 10/18/18 12:00 73 10/18/18 12:00 95.4 70 17 99/57 (71) 100 10/18/18 12:00 Bi-pap Room Air 10/18/18 08:00 Nasal Cannula 2.0 Room Air 10/18/18 08:00 95.7 72 18 99/49 (66) 100 10/18/18 08:00 73 Status: obtunded - on BiPAP Condition: critical HEENT: atraumatic Lungs: rhonchi Heart: HR/BP unstable Abdomen: soft, non-tender, active bowel sounds Extremities: edema - trace, cyanosis - no , clubbing - no Accucheck: 22 Blood Sugars: BS not controlled Critical Care - Subjective ROS Limited/Unobtainable: Yes ICU Day: 2 Intubation Day: BiPAP Interval Events: Tx to ICU S/P R IJ Hugh ---> HD -1.5 L Met/res acidosis on BiPAP, initial plan for intubation, post HD gas better, repeat ABG pending BP borderline this amBS 22 Condition: critical IV Access: PICC, central - R hugh cath IJ EKG Rhythm: Sinus Rhythm FI02: 35 Vent Support Mode: BiLevel - BiPAP 14/5 Sputum Amount: None Fluids: SLIV Drips: Dobut 2.5 & IVUH I&O: Intake and Output 10/18/18 10/19/18 19:00 07:00 Intake Total 240.10 ml 233.736 ml Output Total 1500 ml Balance 240.10 ml -1266.264 ml Intake Oral 20 ml 50 ml IV Total 220.10 ml 183.736 ml Hemodialysis UF 1500 ml # Bowel Movements 2 3 Subjective: ZACHARY on BiPAP CXR: R Ij PVC Labs: Laboratory Tests Test 10/18/18 11:25 10/18/18 13:25 10/18/18 16:45 10/18/18 17:15 Prothrombin Time 20.2 SEC (9.30-11.50) H Prothromb Time International Ratio 2.0 (0.9-1.1) H Activated Partial Thromboplast Time 46 SEC (23-33) H 48 SEC (23-33) H Arterial Blood pH 7.113 (7.350-7.450) 7.145 (7.350-7.450) Arterial Blood Partial Pressure CO2 40.8 mmHg (35.0-45.0) 40.5 mmHg (35.0-45.0) Arterial Blood Partial Pressure O2 43.4 mmHg (75.0-100.0) 180.9 mmHg (75.0-100.0) H Arterial Blood HCO3 12.8 mmol/L (22.0-26.0) *L 13.6 mmol/L (22.0-26.0) *L Arterial Blood Oxygen Saturation 57.9 % (95-100) *L 98.7 % (95-100) Arterial Blood Base Excess -15.7 (-2-2) *L -14.4 (-2-2) *L Tee Test Positive Positive White Blood Count 13.0 K/UL (4.8-10.8) H Red Blood Count 2.97 M/UL (4.70-6.10) L Hemoglobin 7.8 G/DL (14.2-18.0) L Hematocrit 25.7 % (42.0-52.0) L Mean Corpuscular Volume 86 FL (80-99) Mean Corpuscular Hemoglobin 26.4 PG (27.0-31.0) L Mean Corpuscular Hemoglobin Concent 30.6 G/DL (32.0-36.0) L Red Cell Distribution Width 19.1 % (11.6-14.8) H Platelet Count 231 K/UL (150-450) Mean Platelet Volume 4.8 FL (6.5-10.1) L Neutrophils (%) (Auto) % (45.0-75.0) Lymphocytes (%) (Auto) % (20.0-45.0) Monocytes (%) (Auto) % (1.0-10.0) Eosinophils (%) (Auto) % (0.0-3.0) Basophils (%) (Auto) % (0.0-2.0) Differential Total Cells Counted 100 Neutrophils % (Manual) 87 % (45-75) H Lymphocytes % (Manual) 6 % (20-45) L Monocytes % (Manual) 4 % (1-10) Eosinophils % (Manual) 0 % (0-3) Basophils % (Manual) 0 % (0-2) Band Neutrophils 3 % (0-8) Platelet Estimate Adequate Platelet Morphology Normal Hypochromasia 2+ Anisocytosis 2+ Sodium Level 127 MMOL/L (136-145) L Potassium Level 5.7 MMOL/L (3.5-5.1) H Chloride Level 86 MMOL/L (98-107) L Carbon Dioxide Level 18 MMOL/L (21-32) L Anion Gap 24 mmol/L (5-15) H Blood Urea Nitrogen 120 mg/dL (7-18) H Creatinine 6.4 MG/DL (0.55-1.30) H Estimat Glomerular Filtration Rate mL/min (>60) Glucose Level 125 MG/DL (74-106) H Calcium Level 6.2 MG/DL (8.5-10.1) L Troponin I 0.657 ng/mL (0.000-0.056) Hepatitis A IgM Antibody Pending Hepatitis B Surface Antigen Pending Hepatitis B Core IgM Antibody Pending Hepatitis C Antibody Pending Test 10/18/18 20:37 10/19/18 06:00 Arterial Blood pH 7.294 (7.350-7.450) Arterial Blood Partial Pressure CO2 45.5 mmHg (35.0-45.0) H Arterial Blood Partial Pressure O2 120.7 mmHg (75.0-100.0) H Arterial Blood HCO3 21.6 mmol/L (22.0-26.0) L Arterial Blood Oxygen Saturation 97.3 % (95-100) Arterial Blood Base Excess -4.7 (-2-2) L Tee Test Positive White Blood Count 16.0 K/UL (4.8-10.8) H Red Blood Count 2.82 M/UL (4.70-6.10) L Hemoglobin 7.2 G/DL (14.2-18.0) L Hematocrit 23.9 % (42.0-52.0) L Mean Corpuscular Volume 85 FL (80-99) Mean Corpuscular Hemoglobin 25.6 PG (27.0-31.0) L Mean Corpuscular Hemoglobin Concent 30.2 G/DL (32.0-36.0) L Red Cell Distribution Width 20.0 % (11.6-14.8) H Platelet Count 186 K/UL (150-450) Mean Platelet Volume 6.5 FL (6.5-10.1) Neutrophils (%) (Auto) % (45.0-75.0) Lymphocytes (%) (Auto) % (20.0-45.0) Monocytes (%) (Auto) % (1.0-10.0) Eosinophils (%) (Auto) % (0.0-3.0) Basophils (%) (Auto) % (0.0-2.0) Neutrophils % (Manual) Pending Lymphocytes % (Manual) Pending Platelet Estimate Pending Platelet Morphology Pending Activated Partial Thromboplast Time > 150 SEC (23-33) *H Sodium Level 133 MMOL/L (136-145) L Potassium Level 5.3 MMOL/L (3.5-5.1) H Chloride Level 91 MMOL/L (98-107) L Carbon Dioxide Level 19 MMOL/L (21-32) L Anion Gap 23 mmol/L (5-15) H Blood Urea Nitrogen 89 mg/dL (7-18) H Creatinine 5.2 MG/DL (0.55-1.30) H Estimat Glomerular Filtration Rate mL/min (>60) Glucose Level 22 MG/DL (74-106) #*L Calcium Level 6.5 MG/DL (8.5-10.1) L Chidi Bourne MD Oct 19, 2018 07:47
--- NOTE | 2018-10-19 08:07 | NUR ---
Regarding V/Q Scan: Spoke with RN, pt is unstable at this time and cannot leave unit for scan
[2018-10-19] MEDS ORDERED: DOBUTamine 250mg/250ml Premix 250 ML IV SCH (08:30)
--- NOTE | 2018-10-19 08:30 | NUR ---
NURSE NOTES: Received orders to tx x1PRBC, (telephone consent received from son) Reed Gann, increase dobutamine to 5mcg/hr, start Levophed drip, D5W@30cc/hr. Restarted Heparin drip and decreased to 8units/kg/hr as per protocol.
[2018-10-19] MEDS: Aspirin EC 81mg tab ORAL SCH (09:00)
[2018-10-19] MEDS: Docusate 100mg cap ORAL SCH ×2 (09:00→16:59)
[2018-10-19] MEDS: Tums 500mg ORAL SCH ×2 (09:00→16:59)
--- NOTE | 2018-10-19 09:10 | NUR ---
NURSE NOTES: stopped heparin drip as pTT >150 for 1 hour per protocol discussed with pharmacistKrystal.
[2018-10-19] MEDS: SandoSTATIN 50mcg Inj SUBQ SCH ×2 (09:26→16:12)
[2018-10-19] MEDS ORDERED: DOBUTamine Inj 500 MG in D5W 210 ML IV SCH (11:45)
[2018-10-19] MEDS ORDERED: DOPAMINE 800mg/250ml 250 ML IV SCH (12:00)
[2018-10-19] MEDS: DOBUTamine 250mg/250ml Premix 250 ML IV SCH ×2 (12:00→21:06)
[2018-10-19] MEDS ORDERED: Heparin Sod 1000 units/ml 10ml IV PRN ×2 (12:00→15:45)
[2018-10-19] MEDS ORDERED: NS 250 ML IVPB ONE (12:00)
--- NOTE | 2018-10-19 12:30 | NUR ---
NURSE NOTES: Received orders to decrease Dobutrex to 2.5mcg/min and dopamine on standby. Continue levophed drip.
--- NOTE | 2018-10-19 12:42 | General Progress Note ---
Assessment/Plan Problem List: (1) Acute metabolic encephalopathy ICD Codes: G93.41 - Metabolic encephalopathy SNOMED: 56570804, [id number] Assessment/Plan the pt lacks capacity to make decisions next of keen should makes all the decisions cont bilat restraints haldol prn for agitation rec dnr/dni Subjective Allergies: Coded Allergies: PENICILLINS (Verified Allergy, Unknown, 10/09/18) Subjective the pt is more lethargic agitated at times critically hypotensive Objective Last 24 Hour Vital Signs Date Time Temp Pulse Resp B/P (MAP) Pulse Ox O2 Delivery O2 Flow Rate FiO2 10/19/18 12:33 95/15 10/19/18 12:00 95/15 10/19/18 10:45 76 16 95/15 (41) 100 10/19/18 10:38 76 21 100 Full Face 35 10/19/18 10:30 75 16 95/27 (49) 100 10/19/18 10:15 75 16 95/11 (39) 100 10/19/18 10:00 75 16 88/39 (55) 100 10/19/18 09:45 74 15 85/20 (41) 100 10/19/18 09:30 75 15 91/27 (48) 100 10/19/18 09:00 74 15 92/29 (50) 100 10/19/18 08:45 81 15 86/21 (42) 100 10/19/18 08:41 88/22 10/19/18 08:32 88/22 10/19/18 08:30 74 19 100 Full Face 35 10/19/18 08:30 82 15 80/35 (50) 100 10/19/18 08:00 50 10/19/18 08:00 85 15 78/28 (45) 92 10/19/18 08:00 Bi-pap Room Air 10/19/18 07:45 84 15 58/41 (47) 100 10/19/18 07:23 81 20 100 Bi-pap 35 10/19/18 07:13 83 25 100 Bi-pap 35 10/19/18 07:11 83 25 100 Full Face 35 10/19/18 06:00 65 19 88/22 (44) 100 10/19/18 05:30 68 19 93/35 (54) 100 10/19/18 05:00 66 20 100 Facial 35 10/19/18 05:00 68 18 80/29 (46) 100 10/19/18 04:30 68 20 83/26 (45) 100 10/19/18 04:00 68 10/19/18 04:00 50 10/19/18 04:00 Bi-pap Room Air 10/19/18 04:00 96.8 68 19 84/26 (45) 100 10/19/18 03:30 67 19 86/26 (46) 100 10/19/18 03:15 66 16 100 Facial 35 10/19/18 03:00 70 15 95/29 (51) 100 10/19/18 02:30 66 17 91/26 (47) 100 10/19/18 02:00 67 17 92/18 (42) 100 10/19/18 01:39 70 17 100 Bi-pap 35 10/19/18 01:30 68 17 92/24 (46) 100 10/19/18 01:26 72 18 100 Bi-pap 35 10/19/18 01:00 68 17 95/26 (49) 100 10/19/18 00:38 70 22 100 Facial 35 10/19/18 00:30 67 19 93/24 (47) 100 10/19/18 00:00 67 10/19/18 00:00 50 10/19/18 00:00 Bi-pap Room Air 10/19/18 00:00 96.8 67 19 98/35 (56) 100 10/18/18 23:42 88/22 10/18/18 23:30 66 21 88/22 (44) 100 10/18/18 23:18 67 25 100 Facial 35 10/18/18 23:00 74 22 97/36 (56) 100 10/18/18 22:30 74 19 87/31 (49) 100 10/18/18 22:00 75 18 92/39 (56) 100 10/18/18 21:31 74 21 100 Bi-pap 35 10/18/18 21:30 77 15 95/37 (56) 100 10/18/18 21:18 76 22 100 Bi-pap 35 10/18/18 21:18 76 22 100 Facial 35 10/18/18 21:00 76 15 97/41 (59) 100 10/18/18 20:48 Bi-pap 35 10/18/18 20:48 100 Bi-pap 35 10/18/18 20:48 75 19 100 Full Face 35 10/18/18 20:30 76 15 95/39 (57) 100 10/18/18 20:00 77 18 100/37 (58) 100 10/18/18 20:00 76 10/18/18 20:00 50 10/18/18 20:00 Bi-pap Room Air 10/18/18 19:30 96.7 80 19 101/47 (65) 100 10/18/18 19:07 Bi-pap 35.0 10/18/18 19:00 80 21 118/38 (64) 100 10/18/18 18:00 76 12 110/37 (61) 100 10/18/18 17:01 98/38 10/18/18 17:00 74 14 94/32 (52) 100 10/18/18 16:52 78 21 100 Facial 40 10/18/18 16:00 Bi-pap Room Air 10/18/18 16:00 96 10/18/18 16:00 96.8 80 14 90/30 (50) 100 10/18/18 15:57 64 19 100 Facial 40 Intake and Output 10/18/18 10/19/18 18:59 06:59 Intake Total 240.10 ml 243.786 ml Output Total 1500 ml Balance 240.10 ml -1256.214 ml Intake Oral 20 ml 50 ml IV Total 220.10 ml 193.786 ml Hemodialysis UF 1500 ml # Bowel Movements 2 3 Laboratory Tests 10/18/18 13:25: Arterial Blood pH 7.113*L, Arterial Blood Partial Pressure CO2 40.8, Arterial Blood Partial Pressure O2 43.4*L, Arterial Blood HCO3 12.8*L, Arterial Blood Oxygen Saturation 57.9*L, Arterial Blood Base Excess -15.7*L, Tee Test Positive 10/18/18 16:45: Arterial Blood pH 7.145*L, Arterial Blood Partial Pressure CO2 40.5, Arterial Blood Partial Pressure O2 180.9H, Arterial Blood HCO3 13.6*L, Arterial Blood Oxygen Saturation 98.7, Arterial Blood Base Excess -14.4*L, Tee Test Positive 10/18/18 17:15: White Blood Count 13.0H, Red Blood Count 2.97L, Hemoglobin 7.8L, Hematocrit 25.7L, Mean Corpuscular Volume 86, Mean Corpuscular Hemoglobin 26.4L, Mean Corpuscular Hemoglobin Concent 30.6L, Red Cell Distribution Width 19.1H, Platelet Count 231, Mean Platelet Volume 4.8L, Neutrophils (%) (Auto) , Lymphocytes (%) (Auto) , Monocytes (%) (Auto) , Eosinophils (%) (Auto) , Basophils (%) (Auto) , Differential Total Cells Counted 100, Neutrophils % ( Manual) 87H, Lymphocytes % (Manual) 6L, Monocytes % (Manual) 4, Eosinophils % ( Manual) 0, Basophils % (Manual) 0, Band Neutrophils 3, Platelet Estimate Adequate, Platelet Morphology Normal, Hypochromasia 2+, Anisocytosis 2+, Activated Partial Thromboplast Time 48H, Sodium Level 127L, Potassium Level 5.7H , Chloride Level 86L, Carbon Dioxide Level 18L, Anion Gap 24H, Blood Urea Nitrogen 120H, Creatinine 6.4H, Estimat Glomerular Filtration Rate , Glucose Level 125H, Calcium Level 6.2L, Troponin I 0.657H, Hepatitis A IgM Antibody [ Pending], Hepatitis B Surface Antigen [Pending], Hepatitis B Core IgM Antibody [ Pending], Hepatitis C Antibody [Pending] 10/18/18 20:37: Arterial Blood pH 7.294L, Arterial Blood Partial Pressure CO2 45.5H, Arterial Blood Partial Pressure O2 120.7H, Arterial Blood HCO3 21.6L, Arterial Blood Oxygen Saturation 97.3, Arterial Blood Base Excess -4.7L, Tee Test Positive 10/19/18 06:00: White Blood Count 16.0H, Red Blood Count 2.82L, Hemoglobin 7.2L, Hematocrit 23.9L, Mean Corpuscular Volume 85, Mean Corpuscular Hemoglobin 25.6L, Mean Corpuscular Hemoglobin Concent 30.2L, Red Cell Distribution Width 20.0H, Platelet Count 186, Mean Platelet Volume 6.5, Neutrophils (%) (Auto) , Lymphocytes (%) (Auto) , Monocytes (%) (Auto) , Eosinophils (%) (Auto) , Basophils (%) (Auto) , Differential Total Cells Counted 100, Neutrophils % ( Manual) 91H, Lymphocytes % (Manual) 2L, Monocytes % (Manual) 4, Eosinophils % ( Manual) 0, Basophils % (Manual) 0, Band Neutrophils 3, Platelet Estimate Adequate, Platelet Morphology Normal, Polychromasia 1+, Hypochromasia 1+, Anisocytosis 2+, Activated Partial Thromboplast Time > 150*H, Sodium Level 133L , Potassium Level 5.3H, Chloride Level 91L, Carbon Dioxide Level 19L, Anion Gap 23H, Blood Urea Nitrogen 89H, Creatinine 5.2H, Estimat Glomerular Filtration Rate , Glucose Level 22#*L, Calcium Level 6.5L 10/19/18 08:05: Arterial Blood pH 7.273L, Arterial Blood Partial Pressure CO2 38.7, Arterial Blood Partial Pressure O2 139.4H, Arterial Blood HCO3 17.5*L, Arterial Blood Oxygen Saturation 97.8, Arterial Blood Base Excess -8.7L, Tee Test Positive Height (Feet): 5 Height (Inches): 2.00 Weight (Pounds): 148 General Appearance: lethargic, confused Danna Sanchez MD Oct 19, 2018 12:42
[2018-10-19] MEDS: DOPamine 400mg/250ml 250 ML IV SCH (12:45)
--- NOTE | 2018-10-19 13:41 | Cardiology Progress Note ---
Assessment/Plan Assessment/Plan cardiology critical care 1. Hypoglycemia secondary to medication. 2. Diabetes mellitus previously. 3. Acute Respiratory inusf / hemoptysis 4. History of ischemic cardiomyopathy with ejection fraction of 40%. 5. Mitral regurgitation, [id number] degree on recent echocardiogram last week. 6. Moderate tricuspid regurgitation. 7. Mild pulmonary hypertension with 43 through 48. 8. Pleural effusions history. 9. Abnormal gastric endoscopy, suspicious for malignancy with submucosal resection. 10. Aortic stenosis. 11. Hyperlipidemia. 12. Prostate cancer. 13. Abnormal facial asymmetry. 14. CAD 15. hypotension 16. NSTEMI demand related vs PE related doubt acs 17. acute on chronic renal failure 18. metabolic acidosis 19. decreased motion righ ue 20. hypotension 21. pusle pressure v/q was ordered but not done is on heparin again his mental status is worse he seemt obe moving his left upper aggressively but i donot see motion on the right upper ext noted cr increased on dobutamine still hypotensive so blosu given bp improved a little still with diastolic hypotension is on levophed as well echo reviewed has infor post swma and mod mr and ef probley 35-40% , rv is not enlarge ivc ws enlarged at the time was done s/p dialysis yest will need neuro and id to see as well d/w rn d/w family dc plavix is on heparin dose beign adjusted ct ordered but unable to go down due to pressor as well as bipap d/we dr claudio may need intubation addendum on fu pt wa intubated is on abx bp see low but stable on pressor awiat neuro iput senthil need ct of head multiple discussion with staff today Subjective ROS Limited/Unobtainable: Yes Subjective in icu on bipap Objective Last 24 Hour Vital Signs Date Time Temp Pulse Resp B/P (MAP) Pulse Ox O2 Delivery O2 Flow Rate FiO2 10/19/18 13:20 88 17 99 Bi-pap 35 10/19/18 13:09 89 17 96 Bi-pap 35 10/19/18 13:08 91 17 99 Full Face 35 10/19/18 12:33 95/15 10/19/18 12:00 Bi-pap Room Air 10/19/18 12:00 50 10/19/18 12:00 95/15 10/19/18 10:45 76 16 95/15 (41) 100 2/12/19 10:38 76 21 100 Full Face 35 10/19/18 10:30 75 16 95/27 (49) 100 10/19/18 10:15 75 16 95/11 (39) 100 10/19/18 10:00 75 16 88/39 (55) 100 10/19/18 09:45 74 15 85/20 (41) 100 10/19/18 09:30 75 15 91/27 (48) 100 10/19/18 09:00 74 15 92/29 (50) 100 10/19/18 08:45 81 15 86/21 (42) 100 10/19/18 08:41 88/22 10/19/18 08:32 88/22 10/19/18 08:30 74 19 100 Full Face 35 10/19/18 08:30 82 15 80/35 (50) 100 10/19/18 08:00 50 10/19/18 08:00 85 15 78/28 (45) 92 10/19/18 08:00 Bi-pap Room Air 10/19/18 07:45 84 15 58/41 (47) 100 10/19/18 07:23 81 20 100 Bi-pap 35 10/19/18 07:13 83 25 100 Bi-pap 35 10/19/18 07:11 83 25 100 Full Face 35 10/19/18 06:00 65 19 88/22 (44) 100 10/19/18 05:30 68 19 93/35 (54) 100 10/19/18 05:00 66 20 100 Facial 35 10/19/18 05:00 68 18 80/29 (46) 100 10/19/18 04:30 68 20 83/26 (45) 100 10/19/18 04:00 68 10/19/18 04:00 50 10/19/18 04:00 Bi-pap Room Air 10/19/18 04:00 96.8 68 19 84/26 (45) 100 10/19/18 03:30 67 19 86/26 (46) 100 10/19/18 03:15 66 16 100 Facial 35 10/19/18 03:00 70 15 95/29 (51) 100 10/19/18 02:30 66 17 91/26 (47) 100 10/19/18 02:00 67 17 92/18 (42) 100 10/19/18 01:39 70 17 100 Bi-pap 35 10/19/18 01:30 68 17 92/24 (46) 100 10/19/18 01:26 72 18 100 Bi-pap 35 10/19/18 01:00 68 17 95/26 (49) 100 10/19/18 00:38 70 22 100 Facial 35 10/19/18 00:30 67 19 93/24 (47) 100 10/19/18 00:00 67 10/19/18 00:00 50 10/19/18 00:00 Bi-pap Room Air 10/19/18 00:00 96.8 67 19 98/35 (56) 100 10/18/18 23:42 88/22 10/18/18 23:30 66 21 88/22 (44) 100 10/18/18 23:18 67 25 100 Facial 35 10/18/18 23:00 74 22 97/36 (56) 100 10/18/18 22:30 74 19 87/31 (49) 100 10/18/18 22:00 75 18 92/39 (56) 100 10/18/18 21:31 74 21 100 Bi-pap 35 10/18/18 21:30 77 15 95/37 (56) 100 10/18/18 21:18 76 22 100 Bi-pap 35 10/18/18 21:18 76 22 100 Facial 35 10/18/18 21:00 76 15 97/41 (59) 100 10/18/18 20:48 Bi-pap 35 10/18/18 20:48 100 Bi-pap 35 10/18/18 20:48 75 19 100 Full Face 35 10/18/18 20:30 76 15 95/39 (57) 100 10/18/18 20:00 77 18 100/37 (58) 100 10/18/18 20:00 76 10/18/18 20:00 50 10/18/18 20:00 Bi-pap Room Air 10/18/18 19:30 96.7 80 19 101/47 (65) 100 10/18/18 19:07 Bi-pap 35.0 10/18/18 19:00 80 21 118/38 (64) 100 10/18/18 18:00 76 12 110/37 (61) 100 10/18/18 17:01 98/38 10/18/18 17:00 74 14 94/32 (52) 100 10/18/18 16:52 78 21 100 Facial 40 10/18/18 16:00 Bi-pap Room Air 10/18/18 16:00 96 10/18/18 16:00 96.8 80 14 90/30 (50) 100 10/18/18 15:57 64 19 100 Facial 40 General Appearance: no apparent distress, other - on bipap Cardiovascular: normal rate Respiratory/Chest: rhonchi - bilaterally Abdomen: normal bowel sounds, non tender, soft Extremities: moderate edema Intake and Output 10/18/18 10/19/18 19:00 07:00 Intake Total 240.10 ml 233.736 ml Output Total 1500 ml Balance 240.10 ml -1266.264 ml Intake Oral 20 ml 50 ml IV Total 220.10 ml 183.736 ml Hemodialysis UF 1500 ml # Bowel Movements 2 3 Laboratory Tests Test 10/18/18 16:45 10/18/18 17:15 10/18/18 20:37 10/19/18 06:00 Arterial Blood pH 7.145 (7.350-7.450) 7.294 (7.350-7.450) Arterial Blood Partial Pressure CO2 40.5 mmHg (35.0-45.0) 45.5 mmHg (35.0-45.0) H Arterial Blood Partial Pressure O2 180.9 mmHg (75.0-100.0) H 120.7 mmHg (75.0-100.0) H Arterial Blood HCO3 13.6 mmol/L (22.0-26.0) *L 21.6 mmol/L (22.0-26.0) L Arterial Blood Oxygen Saturation 98.7 % (95-100) 97.3 % (95-100) Arterial Blood Base Excess -14.4 (-2-2) *L -4.7 (-2-2) L Tee Test Positive Positive White Blood Count 13.0 K/UL (4.8-10.8) H 16.0 K/UL (4.8-10.8) H Red Blood Count 2.97 M/UL (4.70-6.10) L 2.82 M/UL (4.70-6.10) L Hemoglobin 7.8 G/DL (14.2-18.0) L 7.2 G/DL (14.2-18.0) L Hematocrit 25.7 % (42.0-52.0) L 23.9 % (42.0-52.0) L Mean Corpuscular Volume 86 FL (80-99) 85 FL (80-99) Mean Corpuscular Hemoglobin 26.4 PG (27.0-31.0) L 25.6 PG (27.0-31.0) L Mean Corpuscular Hemoglobin Concent 30.6 G/DL (32.0-36.0) L 30.2 G/DL (32.0-36.0) L Red Cell Distribution Width 19.1 % (11.6-14.8) H 20.0 % (11.6-14.8) H Platelet Count 231 K/UL (150-450) 186 K/UL (150-450) Mean Platelet Volume 4.8 FL (6.5-10.1) L 6.5 FL (6.5-10.1) Neutrophils (%) (Auto) % (45.0-75.0) % (45.0-75.0) Lymphocytes (%) (Auto) % (20.0-45.0) % (20.0-45.0) Monocytes (%) (Auto) % (1.0-10.0) % (1.0-10.0) Eosinophils (%) (Auto) % (0.0-3.0) % (0.0-3.0) Basophils (%) (Auto) % (0.0-2.0) % (0.0-2.0) Differential Total Cells Counted 100 100 Neutrophils % (Manual) 87 % (45-75) H 91 % (45-75) H Lymphocytes % (Manual) 6 % (20-45) L 2 % (20-45) L Monocytes % (Manual) 4 % (1-10) 4 % (1-10) Eosinophils % (Manual) 0 % (0-3) 0 % (0-3) Basophils % (Manual) 0 % (0-2) 0 % (0-2) Band Neutrophils 3 % (0-8) 3 % (0-8) Platelet Estimate Adequate Adequate Platelet Morphology Normal Normal Hypochromasia 2+ 1+ Anisocytosis 2+ 2+ Activated Partial Thromboplast Time 48 SEC (23-33) H > 150 SEC (23-33) *H Sodium Level 127 MMOL/L (136-145) L 133 MMOL/L (136-145) L Potassium Level 5.7 MMOL/L (3.5-5.1) H 5.3 MMOL/L (3.5-5.1) H Chloride Level 86 MMOL/L (98-107) L 91 MMOL/L (98-107) L Carbon Dioxide Level 18 MMOL/L (21-32) L 19 MMOL/L (21-32) L Anion Gap 24 mmol/L (5-15) H 23 mmol/L (5-15) H Blood Urea Nitrogen 120 mg/dL (7-18) H 89 mg/dL (7-18) H Creatinine 6.4 MG/DL (0.55-1.30) H 5.2 MG/DL (0.55-1.30) H Estimat Glomerular Filtration Rate mL/min (>60) mL/min (>60) Glucose Level 125 MG/DL (74-106) H 22 MG/DL (74-106) #*L Calcium Level 6.2 MG/DL (8.5-10.1) L 6.5 MG/DL (8.5-10.1) L Troponin I 0.657 ng/mL (0.000-0.056) Hepatitis A IgM Antibody Pending Hepatitis B Surface Antigen Pending Hepatitis B Core IgM Antibody Pending Hepatitis C Antibody Pending Polychromasia 1+ Test 10/19/18 08:05 Arterial Blood pH 7.273 (7.350-7.450) Arterial Blood Partial Pressure CO2 38.7 mmHg (35.0-45.0) Arterial Blood Partial Pressure O2 139.4 mmHg (75.0-100.0) H Arterial Blood HCO3 17.5 mmol/L (22.0-26.0) *L Arterial Blood Oxygen Saturation 97.8 % (95-100) Arterial Blood Base Excess -8.7 (-2-2) L Tee Test Positive Dg Key MD Oct 19, 2018 13:41
[2018-10-19] MEDS ORDERED: Zosyn 2.25 gm in D5W 55ml IV SCH ×2 (14:00→17:00)
--- NOTE | 2018-10-19 14:20 | NUR ---
NURSE NOTES: Dr. Key doing rounds at bedside. Received orders EKG STAT. Done and shown to MD. Continue on Levophed drip on 30mcg/min, Dobutrex @2.5mcg/min, heparin 8units/kg/min via PICC on right upper arm. Hugh catheter on RIJ. Pt is NSR on hospital monitor. Blood transfusion ended. No s/sx of transfusion rxn noted. Afebrile.
[2018-10-19] MEDS ORDERED: Vancomycin 1 GM in D5W 275 ML IVPB SCH (15:00)
[2018-10-19] MEDS ORDERED: Levophed 4mg/4mL Inj IV ONE ×2 (15:40→15:45)
--- NOTE | 2018-10-19 15:41 | Nephrology Progress Note ---
Assessment/Plan Problem List: (1) Acute kidney injury superimposed on CKD Assessment: worse. cardiorenal vs ATN. (2) CHF (congestive heart failure) (3) NSTEMI (non-ST elevated myocardial infarction) (4) Hypotension (5) Pneumonia (6) Hypoglycemia Plan HD tomorrow Discussed with family and Dr Bourne follow labs Discussed with RN Subjective Subjective lethargic on BIPAP Objective Objective Last 24 Hour Vital Signs Date Time Temp Pulse Resp B/P (MAP) Pulse Ox O2 Delivery O2 Flow Rate FiO2 10/19/18 15:12 108/15 10/19/18 14:00 92 16 108/15 (46) 100 10/19/18 13:30 85 16 110/27 (54) 100 10/19/18 13:20 88 17 99 Bi-pap 35 10/19/18 13:09 89 17 96 Bi-pap 35 10/19/18 13:08 91 17 99 Full Face 35 10/19/18 13:00 89 16 106/19 (48) 100 10/19/18 12:33 95/15 10/19/18 12:30 83 16 99/29 (52) 100 10/19/18 12:00 Bi-pap Room Air 10/19/18 12:00 73 16 101/20 (47) 100 10/19/18 12:00 50 10/19/18 12:00 95/15 10/19/18 11:30 79 16 95/35 (55) 100 10/19/18 11:00 79 16 95/15 (41) 100 10/19/18 10:45 76 16 95/15 (41) 100 10/19/18 10:38 76 21 100 Full Face 35 10/19/18 10:30 75 16 95/27 (49) 100 10/19/18 10:15 75 16 95/11 (39) 100 10/19/18 10:00 75 16 88/39 (55) 100 10/19/18 09:45 74 15 85/20 (41) 100 10/19/18 09:30 75 15 91/27 (48) 100 10/19/18 09:00 74 15 92/29 (50) 100 10/19/18 08:45 81 15 86/21 (42) 100 10/19/18 08:41 88/22 10/19/18 08:32 88/22 10/19/18 08:30 74 19 100 Full Face 35 10/19/18 08:30 82 15 80/35 (50) 100 10/19/18 08:00 50 10/19/18 08:00 85 15 78/28 (45) 92 10/19/18 08:00 Bi-pap Room Air 10/19/18 07:45 84 15 58/41 (47) 100 10/19/18 07:23 81 20 100 Bi-pap 35 10/19/18 07:13 83 25 100 Bi-pap 35 10/19/18 07:11 83 25 100 Full Face 35 10/19/18 06:00 65 19 88/22 (44) 100 10/19/18 05:30 68 19 93/35 (54) 100 10/19/18 05:00 66 20 100 Facial 35 10/19/18 05:00 68 18 80/29 (46) 100 10/19/18 04:30 68 20 83/26 (45) 100 10/19/18 04:00 68 10/19/18 04:00 50 10/19/18 04:00 Bi-pap Room Air 10/19/18 04:00 96.8 68 19 84/26 (45) 100 10/19/18 03:30 67 19 86/26 (46) 100 10/19/18 03:15 66 16 100 Facial 35 10/19/18 03:00 70 15 95/29 (51) 100 10/19/18 02:30 66 17 91/26 (47) 100 10/19/18 02:00 67 17 92/18 (42) 100 10/19/18 01:39 70 17 100 Bi-pap 35 10/19/18 01:30 68 17 92/24 (46) 100 10/19/18 01:26 72 18 100 Bi-pap 35 10/19/18 01:00 68 17 95/26 (49) 100 10/19/18 00:38 70 22 100 Facial 35 10/19/18 00:30 67 19 93/24 (47) 100 10/19/18 00:00 67 10/19/18 00:00 50 10/19/18 00:00 Bi-pap Room Air 10/19/18 00:00 96.8 67 19 98/35 (56) 100 10/18/18 23:42 88/22 10/18/18 23:30 66 21 88/22 (44) 100 10/18/18 23:18 67 25 100 Facial 35 10/18/18 23:00 74 22 97/36 (56) 100 10/18/18 22:30 74 19 87/31 (49) 100 10/18/18 22:00 75 18 92/39 (56) 100 10/18/18 21:31 74 21 100 Bi-pap 35 10/18/18 21:30 77 15 95/37 (56) 100 10/18/18 21:18 76 22 100 Bi-pap 35 10/18/18 21:18 76 22 100 Facial 35 10/18/18 21:00 76 15 97/41 (59) 100 10/18/18 20:48 Bi-pap 35 10/18/18 20:48 100 Bi-pap 35 10/18/18 20:48 75 19 100 Full Face 35 10/18/18 20:30 76 15 95/39 (57) 100 10/18/18 20:00 77 18 100/37 (58) 100 10/18/18 20:00 76 10/18/18 20:00 50 10/18/18 20:00 Bi-pap Room Air 10/18/18 19:30 96.7 80 19 101/47 (65) 100 10/18/18 19:07 Bi-pap 35.0 10/18/18 19:00 80 21 118/38 (64) 100 10/18/18 18:00 76 12 110/37 (61) 100 10/18/18 17:01 98/38 10/18/18 17:00 74 14 94/32 (52) 100 10/18/18 16:52 78 21 100 Facial 40 10/18/18 16:00 Bi-pap Room Air 10/18/18 16:00 96 10/18/18 16:00 96.8 80 14 90/30 (50) 100 10/18/18 15:57 64 19 100 Facial 40 Intake and Output 10/18/18 10/19/18 18:59 06:59 Intake Total 240.10 ml 243.786 ml Output Total 1500 ml Balance 240.10 ml -1256.214 ml Intake Oral 20 ml 50 ml IV Total 220.10 ml 193.786 ml Hemodialysis UF 1500 ml # Bowel Movements 2 3 Laboratory Tests 10/18/18 16:45: Arterial Blood pH 7.145*L, Arterial Blood Partial Pressure CO2 40.5, Arterial Blood Partial Pressure O2 180.9H, Arterial Blood HCO3 13.6*L, Arterial Blood Oxygen Saturation 98.7, Arterial Blood Base Excess -14.4*L, Tee Test Positive 10/18/18 17:15: White Blood Count 13.0H, Red Blood Count 2.97L, Hemoglobin 7.8L, Hematocrit 25.7L, Mean Corpuscular Volume 86, Mean Corpuscular Hemoglobin 26.4L, Mean Corpuscular Hemoglobin Concent 30.6L, Red Cell Distribution Width 19.1H, Platelet Count 231, Mean Platelet Volume 4.8L, Neutrophils (%) (Auto) , Lymphocytes (%) (Auto) , Monocytes (%) (Auto) , Eosinophils (%) (Auto) , Basophils (%) (Auto) , Differential Total Cells Counted 100, Neutrophils % ( Manual) 87H, Lymphocytes % (Manual) 6L, Monocytes % (Manual) 4, Eosinophils % ( Manual) 0, Basophils % (Manual) 0, Band Neutrophils 3, Platelet Estimate Adequate, Platelet Morphology Normal, Hypochromasia 2+, Anisocytosis 2+, Activated Partial Thromboplast Time 48H, Sodium Level 127L, Potassium Level 5.7H , Chloride Level 86L, Carbon Dioxide Level 18L, Anion Gap 24H, Blood Urea Nitrogen 120H, Creatinine 6.4H, Estimat Glomerular Filtration Rate , Glucose Level 125H, Calcium Level 6.2L, Troponin I 0.657H, Hepatitis A IgM Antibody [ Pending], Hepatitis B Surface Antigen [Pending], Hepatitis B Core IgM Antibody [ Pending], Hepatitis C Antibody [Pending] 10/18/18 20:37: Arterial Blood pH 7.294L, Arterial Blood Partial Pressure CO2 45.5H, Arterial Blood Partial Pressure O2 120.7H, Arterial Blood HCO3 21.6L, Arterial Blood Oxygen Saturation 97.3, Arterial Blood Base Excess -4.7L, Tee Test Positive 10/19/18 06:00: White Blood Count 16.0H, Red Blood Count 2.82L, Hemoglobin 7.2L, Hematocrit 23.9L, Mean Corpuscular Volume 85, Mean Corpuscular Hemoglobin 25.6L, Mean Corpuscular Hemoglobin Concent 30.2L, Red Cell Distribution Width 20.0H, Platelet Count 186, Mean Platelet Volume 6.5, Neutrophils (%) (Auto) , Lymphocytes (%) (Auto) , Monocytes (%) (Auto) , Eosinophils (%) (Auto) , Basophils (%) (Auto) , Differential Total Cells Counted 100, Neutrophils % ( Manual) 91H, Lymphocytes % (Manual) 2L, Monocytes % (Manual) 4, Eosinophils % ( Manual) 0, Basophils % (Manual) 0, Band Neutrophils 3, Platelet Estimate Adequate, Platelet Morphology Normal, Hypochromasia 1+, Anisocytosis 2+, Activated Partial Thromboplast Time > 150*H, Sodium Level 133L, Potassium Level 5.3H, Chloride Level 91L, Carbon Dioxide Level 19L, Anion Gap 23H, Blood Urea Nitrogen 89H, Creatinine 5.2H, Estimat Glomerular Filtration Rate , Glucose Level 22#*L, Calcium Level 6.5L, Polychromasia 1+ 10/19/18 08:05: Arterial Blood pH 7.273L, Arterial Blood Partial Pressure CO2 38.7, Arterial Blood Partial Pressure O2 139.4H, Arterial Blood HCO3 17.5*L, Arterial Blood Oxygen Saturation 97.8, Arterial Blood Base Excess -8.7L, Tee Test Positive 10/19/18 15:00: Activated Partial Thromboplast Time > 150*H Height (Feet): 5 Height (Inches): 2.00 Weight (Pounds): 148 Cardiovascular: normal rate Respiratory/Chest: rhonchi - bilaterally Extremities: moderate edema Mario Porter MD Oct 19, 2018 15:41
--- NOTE | 2018-10-19 15:55 | Diagnostic Imaging Report ---
Indication: Dyspnea Technique: One view of the chest Comparison: Post catheter radiograph 10/18/2018 Findings: Right external jugular temporary dialysis catheter, left arm PICC remain. There is suggestion of increasing pleural fluid bilaterally. Some infiltrate and/or atelectasis are seen at the right lung base Impression: Increased small bilateral pleural effusions Persistent right basilar infiltrate and/or atelectasis Other stable findings as described, over one
--- NOTE | 2018-10-19 17:00 | NUR ---
NURSE NOTES: Held Heparin for 1 hour and decreased to 4mcg/min. Timed PTT ordered for 2300. BP stable.
--- NOTE | 2018-10-19 17:30 | NUR ---
NURSE NOTES: Notified Dr. claudio of ABG results. Received orders for Oral intubation. ERMD notified, will carry out orders.
--- NOTE | 2018-10-19 18:07 | NUR ---
NURSE NOTES: Patient orally intubated by ERMPortillo Brown with ETT 7.5/23 at lip line, AC 16/TV 450/FIO2 35%/PEEP 5.
--- NOTE | 2018-10-19 18:23 | NUR ---
RESPIRATORY NOTE: Pt is orally intubated per Dr. Brown with ETT 7.5 @ 23cm lips line, saturate at 97%. Dr. Brown gave vent setting: AC 16-450ml-35% FiO2, peep of 5. Order carried out. Vent is plugged into the red outlet, alarms are set and audible, ambu bag is at bedside. Will continue to monitor pt.
--- NOTE | 2018-10-19 18:38 | NUR ---
NURSE NOTES: changed vent settings per Dr. Bourne, see order history. Received orders for ABG at 1999.
--- NOTE | 2018-10-19 19:16 | NUR ---
HAND-OFF: Report given to JACQUI Porter.
--- NOTE | 2018-10-19 19:19 | NUR ---
CASE MANAGEMENT: REVIEW SI: CHF . NSTEMI . PNA . AMS T 97.3 HR 79 RR 25 BP 69/38 SAT 98% MECH VENT FIO2 35 WBC 16.0 H/H 7.2/23.9 NA 133 GLUCOSE 22 TROPONIN I 0.657 IS: DOBUTAMINE GTT DOPAMINE GTT LEVOPHED GTT SANDOSTATIN SQ Q8HR D5W IVF @30ML/HR D50W IVP PRN ICU STATUS DCP: PATIENT IS FROM HOME
--- NOTE | 2018-10-19 19:30 | Consultation ---
Consult Note Consult Note NEUROLOGY CONSULTATION: Full note dictated #[id number] 83 y/o, CM of ?H who does have a PH of HTN, DM, DL, , Vit B12 and D deficiency, CAD, CHF, and intestinal pathology. He was hospitalized on 10/09/18 for an AMS associated with multiple metabolic abnormalities. He was severely hypoglycemic this morning with a BS of 22. He has also had a few more episodes of hypoglycemia during this hospitalization. In addition he is anemic, has a leukocytosis and elevated BUN/CR. Today he was noted to have decreased RUE movements and thus this consult was requested. ON EXAM: Arouses briefly on DP. Unable to communicate. Corneal decreased on right. Moves L>R on DP Globally diminished DTRs Plantar extensor on right and mute on left. IMPRESSION: Toxic metabolic encephalopathy. Possible acute cerebral lesion with right paresis. REC: Correct toxic/metabolic imbalances. Keep BP >[address] of brain when able to leave ICU EEG W/U for other encephalopathy. Abram Johnson M.D., M.S.P.H. Abram Johnson MD Oct 19, 2018 19:30
--- NOTE | 2018-10-19 19:30 | NUR ---
NURSE NOTES: Recvd.on a vent.orally intubated.see settings.Lungs few scatt Rh.Diminished BS at bases.P.Ox-100%.Suctioned tk.beige sec.NS Lavaged.See V/S.LEVO.Drip in progress TiT.to BPS>90.Scope SR-ST.Dobutamine drip infusing at 2.5mcg/kg/min.EF-40%.Hepa.drip inf.at 4units/kg/hr.observed for S/S of excess bldng.(R) ELIJAH priest cath.intact tequila.for poss.HD in am.Pos.chg.
--- NOTE | 2018-10-19 19:55 | Emergency Room Report ---
Physical Exam Called to inubate patient. Patient with Ph 7.1 on BIPAP. Last 24 Hour Vital Signs Date Time Temp Pulse Resp B/P (MAP) Pulse Ox O2 Delivery O2 Flow Rate FiO2 10/19/18 19:24 79 26 100 Mechanical Ventilator 35 10/19/18 19:03 81 24 100 Mechanical Ventilator 35 10/19/18 18:57 78 25 35 10/19/18 18:30 97.3 79 23 93/32 (52) 97 10/19/18 18:00 80 21 35 10/19/18 18:00 78 23 82/51 (61) 98 10/19/18 17:30 96 23 91/20 (43) 100 10/19/18 17:00 92 23 91/35 (53) 100 10/19/18 16:55 92 17 99 Full Face 35 10/19/18 16:30 92 26 99/38 (58) 100 10/19/18 16:00 96 10/19/18 16:00 69/38 10/19/18 16:00 50 10/19/18 16:00 96.8 92 16 69/38 (48) 100 10/19/18 16:00 Bi-pap Room Air 10/19/18 15:49 82/52 10/19/18 15:30 92 16 69/38 (48) 100 10/19/18 15:12 108/15 10/19/18 15:00 92 16 113/99 (104) 100 10/19/18 15:00 113/99 10/19/18 14:30 90 16 108/27 (54) 100 10/19/18 14:00 109/13 10/19/18 14:00 92 16 108/15 (46) 100 10/19/18 13:30 85 16 110/27 (54) 100 10/19/18 13:20 88 17 99 Bi-pap 35 10/19/18 13:09 89 17 96 Bi-pap 35 10/19/18 13:08 91 17 99 Full Face 35 10/19/18 13:00 106/19 10/19/18 13:00 89 16 106/19 (48) 100 10/19/18 12:33 95/15 10/19/18 12:30 83 16 99/29 (52) 100 10/19/18 12:00 Bi-pap Room Air 10/19/18 12:00 73 16 101/20 (47) 100 10/19/18 12:00 50 10/19/18 12:00 73 10/19/18 12:00 95/15 10/19/18 12:00 101/20 10/19/18 11:30 79 16 95/35 (55) 100 10/19/18 11:00 95/15 10/19/18 11:00 79 16 95/15 (41) 100 10/19/18 10:45 76 16 95/15 (41) 100 10/19/18 10:38 76 21 100 Full Face 35 10/19/18 10:30 75 16 95/27 (49) 100 10/19/18 10:15 75 16 95/11 (39) 100 10/19/18 10:00 75 16 88/39 (55) 100 10/19/18 10:00 85/20 10/19/18 09:45 74 15 85/20 (41) 100 10/19/18 09:30 75 15 91/27 (48) 100 10/19/18 09:00 74 15 92/29 (50) 100 10/19/18 08:45 81 15 86/21 (42) 100 10/19/18 08:41 88/22 10/19/18 08:32 88/22 10/19/18 08:30 74 19 100 Full Face 35 10/19/18 08:30 82 15 80/35 (50) 100 10/19/18 08:00 84 10/19/18 08:00 50 10/19/18 08:00 85 15 78/28 (45) 92 10/19/18 08:00 Bi-pap Room Air 10/19/18 07:45 84 15 58/41 (47) 100 10/19/18 07:23 81 20 100 Bi-pap 35 10/19/18 07:13 83 25 100 Bi-pap 35 10/19/18 07:11 83 25 100 Full Face 35 10/19/18 06:00 65 19 88/22 (44) 100 10/19/18 05:30 68 19 93/35 (54) 100 10/19/18 05:00 66 20 100 Facial 35 10/19/18 05:00 68 18 80/29 (46) 100 10/19/18 04:30 68 20 83/26 (45) 100 10/19/18 04:00 68 10/19/18 04:00 50 10/19/18 04:00 Bi-pap Room Air 10/19/18 04:00 96.8 68 19 84/26 (45) 100 10/19/18 03:30 67 19 86/26 (46) 100 10/19/18 03:15 66 16 100 Facial 35 10/19/18 03:00 70 15 95/29 (51) 100 10/19/18 02:30 66 17 91/26 (47) 100 10/19/18 02:00 67 17 92/18 (42) 100 10/19/18 01:39 70 17 100 Bi-pap 35 10/19/18 01:30 68 17 92/24 (46) 100 10/19/18 01:26 72 18 100 Bi-pap 35 10/19/18 01:00 68 17 95/26 (49) 100 10/19/18 00:38 70 22 100 Facial 35 10/19/18 00:30 67 19 93/24 (47) 100 10/19/18 00:00 67 10/19/18 00:00 50 10/19/18 00:00 Bi-pap Room Air 10/19/18 00:00 96.8 67 19 98/35 (56) 100 10/18/18 23:42 88/22 10/18/18 23:30 66 21 88/22 (44) 100 10/18/18 23:18 67 25 100 Facial 35 10/18/18 23:00 74 22 97/36 (56) 100 10/18/18 22:30 74 19 87/31 (49) 100 10/18/18 22:00 75 18 92/39 (56) 100 10/18/18 21:31 74 21 100 Bi-pap 35 10/18/18 21:30 77 15 95/37 (56) 100 10/18/18 21:18 76 22 100 Bi-pap 35 10/18/18 21:18 76 22 100 Facial 35 10/18/18 21:00 76 15 97/41 (59) 100 10/18/18 20:48 Bi-pap 35 10/18/18 20:48 100 Bi-pap 35 10/18/18 20:48 75 19 100 Full Face 35 10/18/18 20:30 76 15 95/39 (57) 100 10/18/18 20:00 77 18 100/37 (58) 100 10/18/18 20:00 76 10/18/18 20:00 50 10/18/18 20:00 Bi-pap Room Air Sp02 EP Interpretation: reviewed, normal General Appearance: other - lethargic, Chronically Ill Eyes: bilateral eye other - dry eyes ENT: dry mucus membranes, other - dried blood in posterior pharynx and dry membranes Neck: supple Respiratory: decreased breath sounds, other - poor tidal volume Cardiovascular #1: regular rate, rhythm, edema - R hand Gastrointestinal: decreased bowel sounds Musculoskeletal: swelling - Right hand Neurologic: motor weakness, other - tramor L hand and flaccid R Psychiatric: other - lethargy Skin: other - ecchymoses R hand Intubation Intubation : Consent: Emergent Intubation Method: orotracheal Tube Size (cm): 7.5 - 23 cm Medications: Other - none Breath Sounds after Intubation: equal Intubation Complications: no complications Post Intubation Xray: Yes Attempts: One Patient Tolerated: Well Complications: None Progress needed to take out clot from posterior pharynx with [place] Medical Decision Making Diagnostic Impression: Primary Impression: Respiratory failure Qualified Codes: J96.02 - Acute respiratory failure with hypercapnia Additional Impression: Pleural effusions ER Course Called to intubate a patient who has respiratory failure on BiPAP. Patient successfully intubated. Chest x-ray and ventilator orders given. Patient tolerated procedure well. Blood gas with improved acid base disorder. Laboratory Tests Test 10/18/18 04:00 10/18/18 11:25 10/18/18 13:25 10/18/18 16:45 PTT 94 SEC (23-33) H 46 SEC (23-33) H Prothrombin Time 20.2 SEC (9.30-11.50) H Prothrombin Time INR 2.0 (0.9-1.1) H Arterial Blood pH 7.113 (7.350-7.450) 7.145 (7.350-7.450) Arterial Blood Partial Pressure CO2 40.8 mmHg (35.0-45.0) 40.5 mmHg (35.0-45.0) Arterial Blood Partial Pressure O2 43.4 mmHg (75.0-100.0) 180.9 mmHg (75.0-100.0) H Arterial Blood HCO3 12.8 mmol/L (22.0-26.0) *L 13.6 mmol/L (22.0-26.0) *L Arterial Blood Oxygen Saturation 57.9 % (95-100) *L 98.7 % (95-100) Arterial Blood Base Excess -15.7 (-2-2) *L -14.4 (-2-2) *L Tee Test Positive Positive Test 10/18/18 17:15 10/18/18 20:37 10/19/18 06:00 10/19/18 08:05 White Blood Count 13.0 K/UL (4.8-10.8) H 16.0 K/UL (4.8-10.8) H Red Blood Count 2.97 M/UL (4.70-6.10) L 2.82 M/UL (4.70-6.10) L Hemoglobin 7.8 G/DL (14.2-18.0) L 7.2 G/DL (14.2-18.0) L Hematocrit 25.7 % (42.0-52.0) L 23.9 % (42.0-52.0) L Mean Corpuscular Volume 86 FL (80-99) 85 FL (80-99) Mean Corpuscular Hemoglobin 26.4 PG (27.0-31.0) L 25.6 PG (27.0-31.0) L Mean Corpuscular Hemoglobin Concent 30.6 G/DL (32.0-36.0) L 30.2 G/DL (32.0-36.0) L Red Cell Distribution Width 19.1 % (11.6-14.8) H 20.0 % (11.6-14.8) H Platelet Count 231 K/UL (150-450) 186 K/UL (150-450) Mean Platelet Volume 4.8 FL (6.5-10.1) L 6.5 FL (6.5-10.1) Neutrophils (%) (Auto) % (45.0-75.0) % (45.0-75.0) Lymphocytes (%) (Auto) % (20.0-45.0) % (20.0-45.0) Monocytes (%) (Auto) % (1.0-10.0) % (1.0-10.0) Eosinophils (%) (Auto) % (0.0-3.0) % (0.0-3.0) Basophils (%) (Auto) % (0.0-2.0) % (0.0-2.0) Differential Total Cells Counted 100 100 Neutrophils % (Manual) 87 % (45-75) H 91 % (45-75) H Lymphocytes % (Manual) 6 % (20-45) L 2 % (20-45) L Monocytes % (Manual) 4 % (1-10) 4 % (1-10) Eosinophils % (Manual) 0 % (0-3) 0 % (0-3) Basophils % (Manual) 0 % (0-2) 0 % (0-2) Band Neutrophils 3 % (0-8) 3 % (0-8) Platelet Estimate Adequate Adequate Platelet Morphology Normal Normal Hypochromasia 2+ 1+ Anisocytosis 2+ 2+ PTT 48 SEC (23-33) H > 150 SEC (23-33) *H Sodium Level 127 MMOL/L (136-145) L 133 MMOL/L (136-145) L Potassium Level 5.7 MMOL/L (3.5-5.1) H 5.3 MMOL/L (3.5-5.1) H Chloride Level 86 MMOL/L (98-107) L 91 MMOL/L (98-107) L Carbon Dioxide Level 18 MMOL/L (21-32) L 19 MMOL/L (21-32) L Anion Gap 24 mmol/L (5-15) H 23 mmol/L (5-15) H Blood Urea Nitrogen 120 mg/dL (7-18) H 89 mg/dL (7-18) H Creatinine 6.4 MG/DL (0.55-1.30) H 5.2 MG/DL (0.55-1.30) H Estimate Glomerular Filtration Rate mL/min (>60) mL/min (>60) Glucose Level 125 MG/DL (74-106) H 22 MG/DL (74-106) #*L Calcium Level 6.2 MG/DL (8.5-10.1) L 6.5 MG/DL (8.5-10.1) L Troponin I 0.657 ng/mL (0.000-0.056) Hepatitis A IgM Antibody Pending Hepatitis B Surface Antigen Pending Hepatitis B Core IgM Antibody Pending Hepatitis C Antibody Pending Arterial Blood pH 7.294 (7.350-7.450) 7.273 (7.350-7.450) Arterial Blood Partial Pressure CO2 45.5 mmHg (35.0-45.0) H 38.7 mmHg (35.0-45.0) Arterial Blood Partial Pressure O2 120.7 mmHg (75.0-100.0) H 139.4 mmHg (75.0-100.0) H Arterial Blood HCO3 21.6 mmol/L (22.0-26.0) L 17.5 mmol/L (22.0-26.0) *L Arterial Blood Oxygen Saturation 97.3 % (95-100) 97.8 % (95-100) Arterial Blood Base Excess -4.7 (-2-2) L -8.7 (-2-2) L Tee Test Positive Positive Polychromasia 1+ Test 10/19/18 15:00 10/19/18 17:30 PTT > 150 SEC (23-33) *H Arterial Blood pH 7.185 (7.350-7.450) Arterial Blood Partial Pressure CO2 42.8 mmHg (35.0-45.0) Arterial Blood Partial Pressure O2 111.8 mmHg (75.0-100.0) H Arterial Blood HCO3 15.8 mmol/L (22.0-26.0) *L Arterial Blood Oxygen Saturation 96.6 % (95-100) Arterial Blood Base Excess -11.8 (-2-2) *L Tee Test Positive Rhythm Strip Diag. Results EP Interpretation: yes Rhythm: NSR, no PVC's, no ectopy Chest X-Ray Diagnostic Results Chest X-Ray Diagnostic Results : Chest X-Ray Ordered: Yes # of Views/Limited/Complete: 1 View Indication: Other EP Interpretation: Yes Interpretation: no pneumothorax, other - effusions, Vascath, possible infiltrates, ET OK (slightly high) Impression: Other Electronically Signed by: Electronically signed by Erick Brown MD Last Vital Signs Date Time Temp Pulse Resp B/P (MAP) Pulse Ox O2 Delivery O2 Flow Rate FiO2 10/19/18 19:24 79 26 100 Mechanical Ventilator 35 10/19/18 18:30 97.3 93/32 (52) 10/18/18 19:07 35.0 Status: improved Condition: Serious Referrals: Dg Key MD (PCP) Erick Brown MD Oct 19, 2018 19:55
[2018-10-19] MEDS: Dyna-Hex 2% Top Sol 2oz TOPIC SCH (20:24)
[2018-10-19] MEDS: Atorvastatin 20mg tab ORAL SCH (20:54)
[2018-10-19] MEDS: Latanoprost 0.005% Opth 2.5ml Soln BOTH EYES SCH (20:55)
--- NOTE | 2018-10-19 21:00 | NUR ---
NURSE NOTES: Suctioned,pos.chg.Due meds admin.EEG completed.Results in chart.
--- NOTE | 2018-10-19 21:45 | Consultation ---
DATE OF CONSULTATION: 10/19/2018 NEUROLOGY CONSULTATION CONSULTING PHYSICIAN: Abram Johnson M.D. REQUESTING PHYSICIAN: Dg Key M.D. HISTORY: Mr. 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 He was hospitalized on 10/09/2018 for an altered mental state associated with multiple metabolic imbalances. Since he has been in the hospital, he has had multiple episodes of hypoglycemia. Last episode of hypoglycemia was this morning and his blood sugar dropped to 22. He has also had a few more similar episodes in hospital. In addition, he has been anemic, has had a significant leukocytosis, and an elevated BUN and creatinine. Today, he was noted to have decreased right upper extremity movements and thus this consultation was requested. At this point in time, the patient is significantly encephalopathic and unable to give me any history. 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 FAMILY HISTORY: Unavailable. PERSONAL HISTORY: Unavailable. MEDICATIONS: Zosyn, norepinephrine, dopamine, dobutamine, aspirin, Sandostatin, Protonix, atorvastatin, Xalatan, DuoNeb inhaler, DSS, Haldol p.r.n., Zofran p.r.n., Phenergan p.r.n., Tylenol p.r.n., and insulin. PHYSICAL EXAMINATION: GENERAL: He is a well-developed, relatively well-nourished gentleman, lying in an ICU bed, connected to a ventilator through an orotracheal tube. VITAL SIGNS: Pulse 81/minute, blood pressure 93/32 mmHg, respirations 24/minute, temperature 97.3 degrees Fahrenheit. HEAD: Normocephalic and atraumatic. NECK: No neck rigidity was observed. EENT: Benign. NEUROLOGICAL EXAMINATION: MENTAL STATUS EXAMINATION: He was only arousable briefly on deep painful stimulation. He was unable to communicate. Further mental status testing was impossible. SPEECH: Could not be tested. LANGUAGE: Could not be tested. CRANIAL NERVE EXAMINATION: II: He did not blink to threat. III, IV AND : The external ocular movements were present on oculocephalic maneuvers. The pupils were 3 mm in diameter, equal, round, regular, and did not react to light. V & VII: The corneal reflexes were present bilaterally, but significantly diminished on the right side compared to the left. VIII: He did not respond to sounds and had no nystagmus. IX & X: The gag reflex was absent on manipulating the endotracheal tube. XI: The sternocleidomastoids and trapezii did not function. XII: Could not be tested adequately. MOTOR SYSTEM: The tone was normal in all four extremities. Examination of muscle mass revealed no focal wasting. Examination of power was impossible to perform on individual muscle groups; however, when deep painful stimuli were applied, he moved all four extremities minimally with definite weakness on the right side compared to the left. SENSORY EXAMINATION: He responded appropriately to deep pain. He was unable to cooperate for other sensory modalities. REFLEXES: Trace+ and bilaterally symmetrical at the biceps, triceps, brachioradialis. 0 at both knees and ankles. The plantar response was extensor on the right and mute on the left. COORDINATION, STANCE & GAIT: Could not be tested. DIAGNOSTIC IMPRESSION: 1. Mr. Marla Gann is an 83-year-old, gentleman, of unknown handedness, with a past history of multiple medical problems including hypertension, diabetes mellitus, dyslipidemia, aortic stenosis, vitamin B12 deficiency, vitamin D deficiency, coronary artery disease, congestive heart failure, and intestinal pathology. He was hospitalized on 10/09/2018 for an altered mental state related to multiple metabolic imbalances. He did improve, but then in the hospital, he has had multiple further episodes of hypoglycemia. On the morning of 10/19/18, his blood sugar dropped to 22. He has also had problems with his respiratory function, progressive renal dysfunction, and on the morning of 10/19/18 was noted to have weakness in his right upper extremity, this problem continues. 2. On neurological examination, at this time, he arouses briefly on deep pain, but he is unable to maintain arousal and is unable to follow commands. He is also unable to communicate in any manner. 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 His deep tendon reflexes are globally diminished in the upper extremities and lost in the lower extremities. His plantar response is extensor on the right and mute on the left. 3. His latest laboratory data revealed that his WBC count was elevated to 16,000. His hemoglobin was low at 7.2 G. His arterial blood gas revealed a pH of 7.18, a pCO2 of 43, and a pO2 of 112. His chemistry panel revealed a sodium of 133, potassium of 5.3, chloride of 91, BUN at 89, creatinine at 5.2, and blood glucose at 22. 4. The patient's history, neurological examination, and laboratory data are most compatible with significant toxic metabolic encephalopathy that brought into the hospital, and now possibly an acute cerebral lesion causing the right hemiparesis. RECOMMENDATIONS: 1. Agree with management thus far. 2. Continue to correct toxic metabolic imbalances. 3. Try to keep the blood pressure >110 mmHg systolic. 4. A CT scan of the brain without contrast should be performed as soon as it is safe for the patient to leave the ICU. 5. An EEG will be ordered to evaluate the patient for the degree and type of cerebral dysfunction. 6. The patient should be worked up thoroughly for other treatable causes of encephalopathy. 7. Depending on how the patient fares over the next day or so, further recommendations will be given. Thank you for entrusting me with the care of Mr. Gann. I shall follow him with you. Abram Johnson M.D., M.S.P.H. DR: YENNY JOB#: [id number]
--- NOTE | 2018-10-19 23:30 | Infectious Diseases Prog Note ---
Assessment/Plan Assessment/Plan Full consult to follow: A) 1) sepsis, shock, leukocytosis, pna 2) respiratory failure, vent, fred, HD 3) pmh noted 4) allergies - pcn P) 1) meropenem, polymyxin, vancomycin 2) panculture, check labs, imaging ordered 3) continue treatment per primary team and consultants 4) condition critical 5) d/w Dr. Key 6) thank you Subjective Allergies: Coded Allergies: PENICILLINS (Verified Allergy, Unknown, 10/09/18) Objective Vital Signs Last 24 Hour Vital Signs Date Time Temp Pulse Resp B/P (MAP) Pulse Ox O2 Delivery O2 Flow Rate FiO2 10/19/18 23:14 81 27 35 10/19/18 22:00 84 18 104/36 (58) 100 10/19/18 21:45 83 16 108/39 (62) 100 10/19/18 21:33 82 28 35 10/19/18 21:30 83 15 107/41 (63) 100 10/19/18 21:15 83 20 106/43 (64) 100 10/19/18 21:06 110/40 10/19/18 21:00 84 17 105/37 (59) 100 10/19/18 20:53 109/41 10/19/18 20:45 87 17 110/40 (63) 99 10/19/18 20:30 89 17 127/37 (67) 98 10/19/18 20:15 84 19 113/37 (62) 100 10/19/18 20:00 80 18 98/31 (53) 98 10/19/18 20:00 Bi-pap Room Air 10/19/18 20:00 80 10/19/18 20:00 35 10/19/18 19:45 80 24 99/32 (54) 98 10/19/18 19:30 80 24 100/30 (53) 98 10/19/18 19:30 35 10/19/18 19:24 79 26 100 Mechanical Ventilator 35 10/19/18 19:15 80 22 105/32 (56) 100 10/19/18 19:03 81 24 100 Mechanical Ventilator 35 10/19/18 19:00 79 23 98/58 (71) 100 10/19/18 18:57 78 25 35 10/19/18 18:30 97.3 79 23 93/32 (52) 97 10/19/18 18:00 80 21 35 10/19/18 18:00 78 23 82/51 (61) 98 10/19/18 17:30 96 23 91/20 (43) 100 10/19/18 17:00 92 23 91/35 (53) 100 10/19/18 16:55 92 17 99 Full Face 35 10/19/18 16:30 92 26 99/38 (58) 100 10/19/18 16:00 96 10/19/18 16:00 69/38 10/19/18 16:00 50 10/19/18 16:00 96.8 92 16 69/38 (48) 100 10/19/18 16:00 Bi-pap Room Air 10/19/18 15:49 82/52 10/19/18 15:30 92 16 69/38 (48) 100 10/19/18 15:12 108/15 10/19/18 15:00 92 16 113/99 (104) 100 10/19/18 15:00 113/99 10/19/18 14:30 90 16 108/27 (54) 100 10/19/18 14:00 109/13 10/19/18 14:00 92 16 108/15 (46) 100 10/19/18 13:30 85 16 110/27 (54) 100 10/19/18 13:20 88 17 99 Bi-pap 35 10/19/18 13:09 89 17 96 Bi-pap 35 10/19/18 13:08 91 17 99 Full Face 35 10/19/18 13:00 106/19 10/19/18 13:00 89 16 106/19 (48) 100 10/19/18 12:45 121/37 10/19/18 12:33 95/15 10/19/18 12:30 83 16 99/29 (52) 100 10/19/18 12:00 Bi-pap Room Air 10/19/18 12:00 73 16 101/20 (47) 100 10/19/18 12:00 50 10/19/18 12:00 73 10/19/18 12:00 95/15 10/19/18 12:00 101/20 10/19/18 11:30 79 16 95/35 (55) 100 10/19/18 11:00 95/15 10/19/18 11:00 79 16 95/15 (41) 100 10/19/18 10:45 76 16 95/15 (41) 100 10/19/18 10:38 76 21 100 Full Face 35 10/19/18 10:30 75 16 95/27 (49) 100 10/19/18 10:15 75 16 95/11 (39) 100 10/19/18 10:00 75 16 88/39 (55) 100 10/19/18 10:00 85/20 10/19/18 09:45 74 15 85/20 (41) 100 10/19/18 09:30 75 15 91/27 (48) 100 10/19/18 09:00 74 15 92/29 (50) 100 10/19/18 08:45 81 15 86/21 (42) 100 10/19/18 08:41 88/22 10/19/18 08:32 88/22 10/19/18 08:30 74 19 100 Full Face 35 10/19/18 08:30 82 15 80/35 (50) 100 10/19/18 08:00 84 10/19/18 08:00 50 10/19/18 08:00 85 15 78/28 (45) 92 10/19/18 08:00 Bi-pap Room Air 10/19/18 07:45 84 15 58/41 (47) 100 10/19/18 07:23 81 20 100 Bi-pap 35 10/19/18 07:13 83 25 100 Bi-pap 35 10/19/18 07:11 83 25 100 Full Face 35 10/19/18 06:00 65 19 88/22 (44) 100 10/19/18 05:30 68 19 93/35 (54) 100 10/19/18 05:00 66 20 100 Facial 35 10/19/18 05:00 68 18 80/29 (46) 100 10/19/18 04:30 68 20 83/26 (45) 100 10/19/18 04:00 68 10/19/18 04:00 50 10/19/18 04:00 Bi-pap Room Air 10/19/18 04:00 96.8 68 19 84/26 (45) 100 10/19/18 03:30 67 19 86/26 (46) 100 10/19/18 03:15 66 16 100 Facial 35 10/19/18 03:00 70 15 95/29 (51) 100 10/19/18 02:30 66 17 91/26 (47) 100 10/19/18 02:00 67 17 92/18 (42) 100 10/19/18 01:39 70 17 100 Bi-pap 35 10/19/18 01:30 68 17 92/24 (46) 100 10/19/18 01:26 72 18 100 Bi-pap 35 10/19/18 01:00 68 17 95/26 (49) 100 10/19/18 00:38 70 22 100 Facial 35 10/19/18 00:30 67 19 93/24 (47) 100 10/19/18 00:00 67 10/19/18 00:00 50 10/19/18 00:00 Bi-pap Room Air 10/19/18 00:00 96.8 67 19 98/35 (56) 100 10/18/18 23:42 88/22 10/18/18 23:30 66 21 88/22 (44) 100 Height (Feet): 5 Height (Inches): 2.00 Weight (Pounds): 148 Laboratory Tests Test 10/19/18 06:00 10/19/18 08:05 10/19/18 15:00 10/19/18 17:30 White Blood Count 16.0 K/UL (4.8-10.8) H Red Blood Count 2.82 M/UL (4.70-6.10) L Hemoglobin 7.2 G/DL (14.2-18.0) L Hematocrit 23.9 % (42.0-52.0) L Mean Corpuscular Volume 85 FL (80-99) Mean Corpuscular Hemoglobin 25.6 PG (27.0-31.0) L Mean Corpuscular Hemoglobin Concent 30.2 G/DL (32.0-36.0) L Red Cell Distribution Width 20.0 % (11.6-14.8) H Platelet Count 186 K/UL (150-450) Mean Platelet Volume 6.5 FL (6.5-10.1) Neutrophils (%) (Auto) % (45.0-75.0) Lymphocytes (%) (Auto) % (20.0-45.0) Monocytes (%) (Auto) % (1.0-10.0) Eosinophils (%) (Auto) % (0.0-3.0) Basophils (%) (Auto) % (0.0-2.0) Differential Total Cells Counted 100 Neutrophils % (Manual) 91 % (45-75) H Lymphocytes % (Manual) 2 % (20-45) L Monocytes % (Manual) 4 % (1-10) Eosinophils % (Manual) 0 % (0-3) Basophils % (Manual) 0 % (0-2) Band Neutrophils 3 % (0-8) Platelet Estimate Adequate Platelet Morphology Normal Polychromasia 1+ Hypochromasia 1+ Anisocytosis 2+ Activated Partial Thromboplast Time > 150 SEC (23-33) *H > 150 SEC (23-33) *H Sodium Level 133 MMOL/L (136-145) L Potassium Level 5.3 MMOL/L (3.5-5.1) H Chloride Level 91 MMOL/L (98-107) L Carbon Dioxide Level 19 MMOL/L (21-32) L Anion Gap 23 mmol/L (5-15) H Blood Urea Nitrogen 89 mg/dL (7-18) H Creatinine 5.2 MG/DL (0.55-1.30) H Estimat Glomerular Filtration Rate mL/min (>60) Glucose Level 22 MG/DL (74-106) #*L Calcium Level 6.5 MG/DL (8.5-10.1) L Arterial Blood pH 7.273 (7.350-7.450) 7.185 (7.350-7.450) Arterial Blood Partial Pressure CO2 38.7 mmHg (35.0-45.0) 42.8 mmHg (35.0-45.0) Arterial Blood Partial Pressure O2 139.4 mmHg (75.0-100.0) H 111.8 mmHg (75.0-100.0) H Arterial Blood HCO3 17.5 mmol/L (22.0-26.0) *L 15.8 mmol/L (22.0-26.0) *L Arterial Blood Oxygen Saturation 97.8 % (95-100) 96.6 % (95-100) Arterial Blood Base Excess -8.7 (-2-2) L -11.8 (-2-2) *L Tee Test Positive Positive Test 10/19/18 19:29 10/19/18 20:55 Arterial Blood pH 7.340 (7.350-7.450) Arterial Blood Partial Pressure CO2 33.6 mmHg (35.0-45.0) L Arterial Blood Partial Pressure O2 83.3 mmHg (75.0-100.0) Arterial Blood HCO3 17.7 mmol/L (22.0-26.0) *L Arterial Blood Oxygen Saturation 83.3 % (95-100) *L Arterial Blood Base Excess -7.2 (-2-2) L Tee Test Positive Vitamin B12 Level > 2000 PG/ML (193-986) H Thyroid Stimulating Hormone (TSH) 0.441 uiU/mL (0.358-3.740) Current Medications Medications (Trade) Dose Ordered Sig/Ashely Route PRN Reason Start Time Stop Time Status Last Admin Dose Admin Acetaminophen (Tylenol) 650 mg Q6H PRN ORAL Mild Pain/Temp > 100.5 10/18/18 16:30 11/08/18 04:23 Albumin Human 100 ml @ 200 mls/hr PRN PRN IV sbp<90 during hd 10/20/18 15:45 11/19/18 15:44 Albuterol/ Ipratropium (Albuterol/ Ipratropium) 3 ml Q4H PRN HHN Shortness of Breath 10/18/18 17:30 10/23/18 13:29 Albuterol/ Ipratropium (Albuterol/ Ipratropium) 3 ml Q6HRT HHN 10/18/18 19:00 10/23/18 18:59 10/19/18 19:04 Aspirin (Ecotrin) 81 mg DAILY ORAL 10/19/18 09:00 11/09/18 08:59 Atorvastatin Calcium (Lipitor) 40 mg BEDTIME ORAL 10/18/18 21:00 11/09/18 20:59 10/19/18 20:54 Calcium Carbonate (Tums) 500 mg BID ORAL 10/18/18 18:00 11/09/18 08:59 Chlorhexidine Gluconate (Anai-Hex 2%) 1 applic DAILY@2000 TOPIC 10/18/18 20:00 11/12/18 19:59 10/19/18 20:24 Dextrose 1,000 ml @ 30 mls/hr Q24H IV 10/19/18 08:15 11/18/18 08:14 10/19/18 08:33 Dextrose (Dextrose 50%) 25 ml Q30M PRN IV Hypoglycemia 10/18/18 16:45 11/16/18 08:44 Dextrose (Dextrose 50%) 50 ml Q30M PRN IV Hypoglycemia 10/18/18 16:45 11/16/18 08:44 10/19/18 06:26 Dobutamine HCl 250 ml @ 10.05 mls/ hr Q24H IV 10/19/18 11:40 11/18/18 11:39 10/19/18 21:06 Docusate Sodium (Colace) 100 mg TWICE A DAY ORAL 10/18/18 18:00 11/09/18 08:59 Dopamine HCl/ Dextrose 250 ml @ 0 mls/hr Q24H IV 10/19/18 12:45 11/18/18 12:44 Haloperidol Lactate (Haldol) 5 mg Q6H PRN IM Agitation 10/18/18 17:00 11/17/18 16:59 Heparin Sodium (Porcine) (Heparin Sod 1000 units/ml 10ml) 500 unit ONCE PRN IV FOR HD USE ONLY 10/18/18 16:30 10/19/18 23:59 Heparin Sodium (Porcine) (Heparin Sod 1000 units/ml 10ml) 2,000 unit ONCE PRN IV DIALYSIS 10/19/18 15:45 10/21/18 15:44 Heparin Sodium/ Dextrose 500 ml @ 5.371 mls/ hr ADJUST PER PROTOCOL IV 10/19/18 16:45 11/18/18 16:44 10/19/18 16:55 Insulin Aspart (NovoLOG) BEFORE MEALS AND HS SUBQ 10/18/18 16:30 11/16/18 11:29 Latanoprost (Xalatan) 1 drop BEDTIME BOTH EYES 10/18/18 21:00 11/10/18 20:59 10/19/18 20:55 Norepinephrine Bitartrate 8 mg/ Dextrose 250 ml @ 0 mls/hr Q24H IV 10/19/18 13:00 11/18/18 12:59 10/19/18 20:53 Octreotide Acetate (SandoSTATIN) 50 mcg Q8H SUBQ 10/19/18 08:00 11/18/18 07:59 10/19/18 16:12 Ondansetron HCl (Zofran) 4 mg Q8H PRN IVP Nausea & Vomiting 2/11/19 17:00 11/17/18 16:59 Pantoprazole (Protonix) 40 mg ACBREAKFAST ORAL 10/19/18 06:30 11/09/18 08:59 10/19/18 06:13 Piperacillin Sod/ Tazobactam Sod 2.25 gm/Dextrose 55 ml @ 110 mls/hr Q8H IV 10/19/18 17:00 10/26/18 16:59 10/19/18 16:39 Promethazine HCl (Phenergan Plain) 6.25 mg Q6H PRN ORAL For Cough 10/18/18 16:45 11/10/18 04:32 Roseline Figueroa MD Oct 19, 2018 23:29
[2018-10-20] VITALS (88 sets, daily range): BP systolic 10–124; BP diastolic 28–87
[2018-10-20] MEDS: SandoSTATIN 50mcg Inj SUBQ SCH ×2 (00:05→12:23)
--- NOTE | 2018-10-20 00:10 | NUR ---
NURSE NOTES: Repositioned,Suctioned.opening eyes and more movement of upper (L)ext.See V/S.LEVO.drip Taper down to 20mcg/min.Seen exam. by .See Orders.
[2018-10-20] MEDS ORDERED: Heparin 1000 units/ml 1ml Vial IV ONE (00:30)
[2018-10-20] MEDS ORDERED: Heparin 25,000u/D5W 500ml 500 ML IV SCH (00:30)
[2018-10-20] MEDS: Albuterol/Ipratropium 3ml neb HHN SCH ×4 (01:03→19:29)
--- NOTE | 2018-10-20 02:00 | NUR ---
NURSE NOTES: Suctioned,Onur.Vent settings.Pos.chg.Cont.Ca.monitoring.
[2018-10-20] MEDS ORDERED: Vancomycin 1.25gm Premix 275 ML IVPB ONE (03:00)
--- NOTE | 2018-10-20 04:20 | NUR ---
NURSE NOTES: Blood drawn for cbc/bmp/2xblood cult etc.spec.to lab.joan Arriaza chg.suctioned.spec.for cult. and gram st.send to lab.More awake and more (L) side involuntary movement noticed.See V/s Cont.on LEVO drip at 20mcg/min.Dobutamine at same rate.Ashely for HD this am.Cont.on Hepa.drip at 6units/kg/hr.No untoward bldng noted.
[2018-10-20 06:10] LABS: HEMATOCRIT 30.4 % (42.0-52.0); HEMOGLOBIN 9.6 G/DL (14.2-18.0); MEAN CORPUSCULAR VOLUME 85 FL (80-99); PLATELET COUNT 166 K/UL (150-450); RED BLOOD COUNT 3.58 M/UL (4.70-6.10); RED CELL DISTRIBUTION WIDTH 19.5 % (11.6-14.8); WHITE BLOOD COUNT 20.9 K/UL (4.8-10.8)
[2018-10-20 06:23] LABS: ANION GAP 23 mmol/L (5-15); BLOOD UREA NITROGEN 91 mg/dL (7-18); CALCIUM 6.1 MG/DL (8.5-10.1); CARBON DIOXIDE 17 MMOL/L (21-32); CHLORIDE 85 MMOL/L (98-107); CREATININE 5.7 MG/DL (0.55-1.30); POTASSIUM 5.4 MMOL/L (3.5-5.1); SODIUM 125 MMOL/L (136-145)
[2018-10-20] MEDS: NovoLOG Insulin Flexpen SUBQ SCH ×4 (06:24→20:50)
[2018-10-20 06:31] LABS: ALANINE AMINOTRANSFERASE 891 U/L (12-78); ALBUMIN 2.5 G/DL (3.4-5.0); ALKALINE PHOSPHATASE 93 U/L (46-116); ASPARTATE AMINO TRANSFERASE 1765 U/L (15-37); BILIRUBIN,DIRECT 2.4 MG/DL (0.0-0.3); BILIRUBIN,TOTAL 3.1 MG/DL (0.2-1.0)
--- NOTE | 2018-10-20 06:40 | General Progress Note ---
Assessment/Plan Problem List: (1) CKD (chronic kidney disease) ICD Codes: N18.9 - Chronic kidney disease, unspecified SNOMED: 696236669 (2) Hypoglycemia ICD Codes: E16.2 - Hypoglycemia, unspecified SNOMED: 759325672 (3) Altered mental status ICD Codes: R41.82 - Altered mental status, unspecified SNOMED: 701872330 Assessment/Plan hypoglycemia improved half life of Amaryl has been prolonged due to worsening of renal failure and significantly reduced GFR reduce Octreotide 50 mg sub Q every 8 hours to every 12 hours Subjective ROS Limited/Unobtainable: Yes Allergies: Coded Allergies: PENICILLINS (Verified Allergy, Unknown, 10/09/18) Subjective events noted intubated in ICU HD started glucose improved Item Value Date Time Bedside Blood Glucose 177 mg/dl H 10/20/18 0624 Bedside Blood Glucose 170 mg/dl H 10/19/18 2220 Bedside Blood Glucose 151 mg/dl H 10/19/18 1630 Bedside Blood Glucose 141 mg/dl H 10/19/18 1130 Bedside Blood Glucose 118 mg/dl 10/19/18 0725 Objective Last 24 Hour Vital Signs Date Time Temp Pulse Resp B/P (MAP) Pulse Ox O2 Delivery O2 Flow Rate FiO2 10/20/18 05:21 90 23 35 10/20/18 04:00 Bi-pap Room Air 10/20/18 04:00 35 10/20/18 04:00 87 10/20/18 03:07 89 25 35 10/20/18 01:44 99/37 10/20/18 01:13 85 27 100 Mechanical Ventilator 35 10/20/18 01:07 88 27 99 Mechanical Ventilator 35 10/20/18 01:04 88 27 35 10/20/18 00:00 91 10/20/18 00:00 Bi-pap Room Air 10/20/18 00:00 35 10/19/18 23:15 93 20 103/74 (84) 100 10/19/18 23:14 81 27 35 10/19/18 23:00 93 20 108/76 (87) 100 10/19/18 22:45 91 20 113/78 (90) 100 10/19/18 22:30 92 20 111/72 (85) 100 10/19/18 22:15 93 20 114/80 (91) 100 10/19/18 22:00 84 18 104/36 (58) 100 10/19/18 21:45 83 16 108/39 (62) 100 10/19/18 21:33 82 28 35 10/19/18 21:30 83 15 107/41 (63) 100 10/19/18 21:15 83 20 106/43 (64) 100 10/19/18 21:06 110/40 10/19/18 21:00 84 17 105/37 (59) 100 10/19/18 20:53 109/41 10/19/18 20:45 87 17 110/40 (63) 99 10/19/18 20:30 89 17 127/37 (67) 98 10/19/18 20:15 84 19 113/37 (62) 100 10/19/18 20:00 80 18 98/31 (53) 98 10/19/18 20:00 Bi-pap Room Air 10/19/18 20:00 80 10/19/18 20:00 35 10/19/18 19:45 80 24 99/32 (54) 98 10/19/18 19:30 80 24 100/30 (53) 98 10/19/18 19:30 35 10/19/18 19:24 79 26 100 Mechanical Ventilator 35 10/19/18 19:15 80 22 105/32 (56) 100 10/19/18 19:03 81 24 100 Mechanical Ventilator 35 10/19/18 19:00 79 23 98/58 (71) 100 10/19/18 18:57 78 25 35 10/19/18 18:30 97.3 79 23 93/32 (52) 97 10/19/18 18:00 80 21 35 10/19/18 18:00 78 23 82/51 (61) 98 10/19/18 17:30 96 23 91/20 (43) 100 10/19/18 17:00 92 23 91/35 (53) 100 10/19/18 16:55 92 17 99 Full Face 35 10/19/18 16:30 92 26 99/38 (58) 100 10/19/18 16:00 96 10/19/18 16:00 69/38 10/19/18 16:00 50 10/19/18 16:00 96.8 92 16 69/38 (48) 100 10/19/18 16:00 Bi-pap Room Air 10/19/18 15:49 82/52 10/19/18 15:30 92 16 69/38 (48) 100 10/19/18 15:12 108/15 10/19/18 15:00 92 16 113/99 (104) 100 10/19/18 15:00 113/99 10/19/18 14:30 90 16 108/27 (54) 100 10/19/18 14:00 109/13 10/19/18 14:00 92 16 108/15 (46) 100 10/19/18 13:30 85 16 110/27 (54) 100 10/19/18 13:20 88 17 99 Bi-pap 35 10/19/18 13:09 89 17 96 Bi-pap 35 10/19/18 13:08 91 17 99 Full Face 35 10/19/18 13:00 106/19 10/19/18 13:00 89 16 106/19 (48) 100 10/19/18 12:45 121/37 10/19/18 12:33 95/15 10/19/18 12:30 83 16 99/29 (52) 100 10/19/18 12:00 Bi-pap Room Air 10/19/18 12:00 73 16 101/20 (47) 100 10/19/18 12:00 50 10/19/18 12:00 73 10/19/18 12:00 95/15 10/19/18 12:00 101/20 10/19/18 11:30 79 16 95/35 (55) 100 10/19/18 11:00 95/15 10/19/18 11:00 79 16 95/15 (41) 100 10/19/18 10:45 76 16 95/15 (41) 100 10/19/18 10:38 76 21 100 Full Face 35 10/19/18 10:30 75 16 95/27 (49) 100 10/19/18 10:15 75 16 95/11 (39) 100 10/19/18 10:00 75 16 88/39 (55) 100 10/19/18 10:00 85/20 10/19/18 09:45 74 15 85/20 (41) 100 10/19/18 09:30 75 15 91/27 (48) 100 10/19/18 09:00 74 15 92/29 (50) 100 10/19/18 08:45 81 15 86/21 (42) 100 10/19/18 08:41 88/22 10/19/18 08:32 88/22 10/19/18 08:30 74 19 100 Full Face 35 10/19/18 08:30 82 15 80/35 (50) 100 10/19/18 08:00 84 10/19/18 08:00 50 10/19/18 08:00 85 15 78/28 (45) 92 10/19/18 08:00 Bi-pap Room Air 10/19/18 07:45 84 15 58/41 (47) 100 10/19/18 07:23 81 20 100 Bi-pap 35 10/19/18 07:13 83 25 100 Bi-pap 35 10/19/18 07:11 83 25 100 Full Face 35 Intake and Output 10/19/18 10/20/18 19:00 07:00 Intake Total 907.921 ml 1000.320 ml Balance 907.921 ml 1000.320 ml Intake Oral 0 ml 0 ml IV Total 907.921 ml 1000.320 ml # Bowel Movements 1 1 Laboratory Tests 10/19/18 08:05: Arterial Blood pH 7.273L, Arterial Blood Partial Pressure CO2 38.7, Arterial Blood Partial Pressure O2 139.4H, Arterial Blood HCO3 17.5*L, Arterial Blood Oxygen Saturation 97.8, Arterial Blood Base Excess -8.7L, Tee Test Positive 10/19/18 15:00: Activated Partial Thromboplast Time > 150*H 10/19/18 17:30: Arterial Blood pH 7.185*L, Arterial Blood Partial Pressure CO2 42.8, Arterial Blood Partial Pressure O2 111.8H, Arterial Blood HCO3 15.8*L, Arterial Blood Oxygen Saturation 96.6, Arterial Blood Base Excess -11.8*L, Tee Test Positive 10/19/18 19:29: Arterial Blood pH 7.340L, Arterial Blood Partial Pressure CO2 33.6L, Arterial Blood Partial Pressure O2 83.3, Arterial Blood HCO3 17.7*L, Arterial Blood Oxygen Saturation 83.3*L, Arterial Blood Base Excess -7.2L, Tee Test Positive 10/19/18 20:55: Vitamin B12 Level > 2000H, Thyroid Stimulating Hormone (TSH) 0.441 10/19/18 23:00: Activated Partial Thromboplast Time 63H, Ammonia 34H 10/20/18 06:00: Activated Partial Thromboplast Time 118H, White Blood Count 20.9H, Red Blood Count 3.58L, Hemoglobin 9.6#L, Hematocrit 30.4L, Mean Corpuscular Volume 85, Mean Corpuscular Hemoglobin 26.8L, Mean Corpuscular Hemoglobin Concent 31.5L, Red Cell Distribution Width 19.5H, Platelet Count 166, Mean Platelet Volume 6.5 , Neutrophils (%) (Auto) , Lymphocytes (%) (Auto) , Monocytes (%) (Auto) , Eosinophils (%) (Auto) , Basophils (%) (Auto) , Neutrophils % (Manual) [Pending] , Lymphocytes % (Manual) [Pending], Platelet Estimate [Pending], Platelet Morphology [Pending], Sodium Level 125L, Potassium Level 5.4H, Chloride Level 85L, Carbon Dioxide Level 17L, Anion Gap 23H, Blood Urea Nitrogen 91H, Creatinine 5.7H, Estimat Glomerular Filtration Rate , Glucose Level 184#H, Calcium Level 6.1L, Total Bilirubin [Pending], Direct Bilirubin [Pending], Aspartate Amino Transf (AST/SGOT) [Pending], Alanine Aminotransferase (ALT/SGPT ) [Pending], Alkaline Phosphatase [Pending], Total Protein [Pending], Albumin [ Pending] Height (Feet): 5 Height (Inches): 2.00 Weight (Pounds): 148 General Appearance: moderate distress Neck: normal alignment Cardiovascular: normal peripheral pulses Respiratory/Chest: decreased breath sounds Abdomen: normal bowel sounds Objective Current Medications Medications (Trade) Dose Ordered Sig/Ashely Route PRN Reason Start Time Stop Time Status Last Admin Dose Admin Acetaminophen (Tylenol) 650 mg Q6H PRN ORAL Mild Pain/Temp > 100.5 10/18/18 16:30 11/08/18 04:23 Albumin Human 100 ml @ 200 mls/hr PRN PRN IV sbp<90 during hd 10/20/18 15:45 11/19/18 15:44 Albuterol/ Ipratropium (Albuterol/ Ipratropium) 3 ml Q4H PRN HHN Shortness of Breath 10/18/18 17:30 10/23/18 13:29 Albuterol/ Ipratropium (Albuterol/ Ipratropium) 3 ml Q6HRT HHN 10/18/18 19:00 10/23/18 18:59 10/20/18 01:03 Aspirin (Ecotrin) 81 mg DAILY ORAL 10/19/18 09:00 11/09/18 08:59 Atorvastatin Calcium (Lipitor) 40 mg BEDTIME ORAL 10/18/18 21:00 11/09/18 20:59 10/19/18 20:54 Calcium Carbonate (Tums) 500 mg BID ORAL 10/18/18 18:00 11/09/18 08:59 Chlorhexidine Gluconate (Anai-Hex 2%) 1 applic DAILY@2000 TOPIC 10/18/18 20:00 11/12/18 19:59 10/19/18 20:24 Dextrose 1,000 ml @ 30 mls/hr Q24H IV 10/19/18 08:15 11/18/18 08:14 10/19/18 08:33 Dextrose (Dextrose 50%) 25 ml Q30M PRN IV Hypoglycemia 10/18/18 16:45 11/16/18 08:44 Dextrose (Dextrose 50%) 50 ml Q30M PRN IV Hypoglycemia 10/18/18 16:45 11/16/18 08:44 10/19/18 06:26 Dobutamine HCl 250 ml @ 10.05 mls/ hr Q24H IV 10/19/18 11:40 11/18/18 11:39 10/19/18 21:06 Docusate Sodium (Colace) 100 mg TWICE A DAY ORAL 10/18/18 18:00 11/09/18 08:59 Dopamine HCl/ Dextrose 250 ml @ 0 mls/hr Q24H IV 10/19/18 12:45 11/18/18 12:44 Haloperidol Lactate (Haldol) 5 mg Q6H PRN IM Agitation 10/18/18 17:00 11/17/18 16:59 Heparin Sodium (Porcine) (Heparin Sod 1000 units/ml 10ml) 2,000 unit ONCE PRN IV DIALYSIS 10/19/18 15:45 10/21/18 15:44 Heparin Sodium/ Dextrose 500 ml @ 8.056 mls/ hr ADJUST PER PROTOCOL IV 10/20/18 00:30 11/18/18 16:44 10/20/18 00:46 Insulin Aspart (NovoLOG) BEFORE MEALS AND HS SUBQ 10/18/18 16:30 11/16/18 11:29 Latanoprost (Xalatan) 1 drop BEDTIME BOTH EYES 10/18/18 21:00 11/10/18 20:59 10/19/18 20:55 Meropenem 500 mg/ Sodium Chloride 50 ml @ 100 mls/hr Q24HRS IVPB 10/20/18 00:00 10/25/18 00:00 10/20/18 00:38 Norepinephrine Bitartrate 8 mg/ Dextrose 250 ml @ 0 mls/hr Q24H IV 10/19/18 13:00 11/18/18 12:59 10/20/18 01:44 Octreotide Acetate (SandoSTATIN) 50 mcg Q8H SUBQ 10/19/18 08:00 11/18/18 07:59 10/20/18 00:05 Ondansetron HCl (Zofran) 4 mg Q8H PRN IVP Nausea & Vomiting 10/18/18 17:00 11/17/18 16:59 Pantoprazole (Protonix) 40 mg ACBREAKFAST ORAL 10/19/18 06:30 11/09/18 08:59 10/19/18 06:13 Polymyxin B Sulfate 104156 units/Dextrose 250 ml @ 250 mls/hr EVERY 12 HOURS IVPB 10/20/18 09:00 10/27/18 08:59 Promethazine HCl (Phenergan Plain) 6.25 mg Q6H PRN ORAL For Cough 10/18/18 16:45 11/10/18 04:32 Vancomycin HCl (Vanco rx to dose) 1 ea DAILY PRN MISC Per rx protocol 10/19/18 23:30 11/18/18 23:29 Barry Schmitt MD Oct 20, 2018 06:40
--- NOTE | 2018-10-20 07:00 | NUR ---
RESPIRATORY NOTE: Received pt on [id number]% FiO2- peep of 5, tolerating well. pt's resting comfortably, eyes open. pt is orally intubated with ETT 7.5 @ 23 cm lips line, secured by anchor fast. Keny clear diminished breath sounds upon auscultation, suctioned moderate amount of thin brown secretions without any incidents. Breathing tx given without adverse reactions. Alarms are set and audible, vent is plugged into the red outlet, ambu bag is at bedside. Vent circuits and sxn tubbing are secured and out of the way. Will continue to monitor pt.
[2018-10-20] MEDS: Heparin 25,000u/D5W 500ml 500 ML IV SCH (07:49)
[2018-10-20] MEDS: Aspirin EC 81mg tab ORAL SCH (07:51)
[2018-10-20] MEDS: Docusate 100mg cap ORAL SCH (07:51)
[2018-10-20] MEDS: Tums 500mg ORAL SCH (07:51)
--- NOTE | 2018-10-20 08:00 | NUR ---
NURSE NOTES: Received pt from JACQUI Porter. Patient opens eyes spontaneously, unable to follow commands, responds to pain. Orally intubated ETT 7.5, 22cm lip line, AC 20, TV 500, FIO2 35%, PEEP +5, saturating 94%. SR noted on the frame and scrap crusher. Pt kept NPO. Right IJ Hugh cath, dressing i/c/d. Left UA double lumen PICC intact, and patent. On Heparin drip 3units/kg/hr, dobutamine at 2.5mcg/kg/hr, and Levophed at 30mcg/min. No s/sx of bleeding noted. Pt on P200. multiple wound dressings intact, clean and dry. pt anuric. Call light within reach. Bed in lowest position, locked. Bed alarms on. Will continue to monitor.
--- NOTE | 2018-10-20 08:50 | Pulmonolgy Critical Care Note ---
Critical Care - Asmt/Plan Problems: (1) Respiratory failure, acute (2) Ventilator dependence (3) CHF (congestive heart failure) (4) CAD (coronary artery disease) (5) NSTEMI (non-ST elevated myocardial infarction) (6) Respiratory acidosis (7) Hemoptysis (8) Hypoglycemia (9) Pneumonia (10) Hypotension (11) Elevated d-dimer (12) Acute kidney injury superimposed on CKD Assessment & Plan: S/P initiation of HD Respiratory: adjust tidal volume, monitor respiratory rate, adjust FIO2, CXR, ABG Cardiac: continue pressors - NE 30, Dobut 2.5, continue to monitor HR/BP Renal: other - HD per renal with UF as able Infectious Disease: check cultures, continue antibiotics - per ID Gastrointestinal: other - Place NGT Endocrine: monitor blood sugar, other - F/U endo recs Neurologic: other - Monitor MS, F/U neuro recs, F/U EEG, CT head when head, check arterial and venous US BUE Prophylaxis: Protonix, Heparin - IVUH - CT-A when able Disposition: keep in ICU Time Spent (Minutes): 40 Notes Reviewed: lead miner blasting, cardio, renal, ID, neuro Discussed with: nurses, consultants Critical Care - Objective Last 24 Hour Vital Signs Date Time Temp Pulse Resp B/P (MAP) Pulse Ox O2 Delivery O2 Flow Rate FiO2 10/20/18 08:00 35 10/20/18 08:00 Mechanical Ventilator Room Air 10/20/18 07:00 83 27 97 Mechanical Ventilator 35 10/20/18 07:00 86 23 35 10/20/18 06:49 83 25 96 Mechanical Ventilator 35 10/20/18 06:30 87 24 109/39 (62) 98 10/20/18 06:15 88 22 111/40 (63) 98 10/20/18 06:00 87 20 105/47 (66) 98 10/20/18 05:45 88 22 103/42 (62) 98 10/20/18 05:30 87 20 107/38 (61) 98 10/20/18 05:21 90 23 35 10/20/18 05:15 88 21 100/39 (59) 98 10/20/18 05:00 90 23 106/41 (62) 98 10/20/18 04:45 87 20 109/50 (69) 99 10/20/18 04:30 87 19 103/40 (61) 98 10/20/18 04:15 87 18 108/42 (64) 98 10/20/18 04:00 Bi-pap Room Air 10/20/18 04:00 35 10/20/18 04:00 87 10/20/18 04:00 97.6 87 19 114/45 (68) 98 10/20/18 03:45 87 18 102/57 (72) 98 10/20/18 03:30 87 18 106/44 (64) 98 10/20/18 03:15 88 18 10/40 (30) 98 10/20/18 03:07 89 25 35 10/20/18 03:00 88 20 105/41 (62) 98 10/20/18 02:45 90 15 109/39 (62) 98 10/20/18 02:30 90 15 117/39 (65) 98 10/20/18 02:00 90 18 109/44 (65) 98 10/20/18 01:45 88 16 107/42 (63) 99 10/20/18 01:44 99/37 10/20/18 01:30 87 17 99/47 (64) 99 10/20/18 01:13 85 27 100 Mechanical Ventilator 35 10/20/18 01:07 88 27 99 Mechanical Ventilator 35 10/20/18 01:04 88 27 35 10/20/18 01:00 89 20 102/43 (62) 99 10/20/18 00:30 91 14 124/41 (68) 97 10/20/18 00:00 91 10/20/18 00:00 Bi-pap Room Air 10/20/18 00:00 97.8 92 16 103/42 (62) 100 10/20/18 00:00 35 10/19/18 23:15 93 20 103/74 (84) 100 10/19/18 23:14 81 27 35 10/19/18 23:00 93 20 108/76 (87) 100 10/19/18 22:45 91 20 113/78 (90) 100 10/19/18 22:30 92 20 111/72 (85) 100 10/19/18 22:15 93 20 114/80 (91) 100 10/19/18 22:00 84 18 104/36 (58) 100 10/19/18 21:45 83 16 108/39 (62) 100 10/19/18 21:33 82 28 35 10/19/18 21:30 83 15 107/41 (63) 100 10/19/18 21:15 83 20 106/43 (64) 100 10/19/18 21:06 110/40 10/19/18 21:00 84 17 105/37 (59) 100 10/19/18 20:53 109/41 10/19/18 20:45 87 17 110/40 (63) 99 10/19/18 20:30 89 17 127/37 (67) 98 10/19/18 20:15 84 19 113/37 (62) 100 10/19/18 20:00 80 18 98/31 (53) 98 10/19/18 20:00 Bi-pap Room Air 10/19/18 20:00 80 10/19/18 20:00 35 10/19/18 19:45 80 24 99/32 (54) 98 10/19/18 19:30 80 24 100/30 (53) 98 10/19/18 19:30 35 10/19/18 19:24 79 26 100 Mechanical Ventilator 35 10/19/18 19:15 80 22 105/32 (56) 100 10/19/18 19:03 81 24 100 Mechanical Ventilator 35 10/19/18 19:00 79 23 98/58 (71) 100 10/19/18 18:57 78 25 35 10/19/18 18:30 97.3 79 23 93/32 (52) 97 10/19/18 18:00 80 21 35 10/19/18 18:00 78 23 82/51 (61) 98 10/19/18 17:30 96 23 91/20 (43) 100 10/19/18 17:00 92 23 91/35 (53) 100 10/19/18 16:55 92 17 99 Full Face 35 10/19/18 16:30 92 26 99/38 (58) 100 10/19/18 16:00 96 10/19/18 16:00 69/38 10/19/18 16:00 50 10/19/18 16:00 96.8 92 16 69/38 (48) 100 10/19/18 16:00 Bi-pap Room Air 10/19/18 15:49 82/52 10/19/18 15:30 92 16 69/38 (48) 100 10/19/18 15:12 108/15 10/19/18 15:00 92 16 113/99 (104) 100 10/19/18 15:00 113/99 10/19/18 14:30 90 16 108/27 (54) 100 10/19/18 14:00 109/13 10/19/18 14:00 92 16 108/15 (46) 100 10/19/18 13:30 85 16 110/27 (54) 100 10/19/18 13:20 88 17 99 Bi-pap 35 10/19/18 13:09 89 17 96 Bi-pap 35 10/19/18 13:08 91 17 99 Full Face 35 10/19/18 13:00 106/19 10/19/18 13:00 89 16 106/19 (48) 100 10/19/18 12:45 121/37 10/19/18 12:33 95/15 10/19/18 12:30 83 16 99/29 (52) 100 10/19/18 12:00 Bi-pap Room Air 10/19/18 12:00 73 16 101/20 (47) 100 10/19/18 12:00 50 10/19/18 12:00 73 10/19/18 12:00 95/15 10/19/18 12:00 101/20 10/19/18 11:30 79 16 95/35 (55) 100 10/19/18 11:00 95/15 10/19/18 11:00 79 16 95/15 (41) 100 10/19/18 10:45 76 16 95/15 (41) 100 10/19/18 10:38 76 21 100 Full Face 35 10/19/18 10:30 75 16 95/27 (49) 100 10/19/18 10:15 75 16 95/11 (39) 100 10/19/18 10:00 75 16 88/39 (55) 100 10/19/18 10:00 85/20 10/19/18 09:45 74 15 85/20 (41) 100 10/19/18 09:30 75 15 91/27 (48) 100 10/19/18 09:00 74 15 92/29 (50) 100 Status: obtunded, other - intubated Condition: critical HEENT: atraumatic, normocephalic Neck: full ROM Lungs: rhonchi Heart: HR/BP unstable Abdomen: soft, non-tender, active bowel sounds Extremities: no C/C/E Accucheck: 177 Blood Sugars: BS controlled Critical Care - Subjective ROS Limited/Unobtainable: Yes ICU Day: 3 Intubation Day: 2 Interval Events: Intubated Concern Re: not moving RUE, seen by neuro No sig secretions Obtunded Gas exchange improved Condition: critical IV Access: PICC, central - [facility] EKG Rhythm: Sinus Rhythm FI02: 35 Vent Support Breath Rate: 20 Vent Support Mode: AC Vent Tidal Volume: 500 Sputum Amount: Moderate PEEP: 5.0 PIP: 33 Secretions: Mod thick/pink Fluids: D5W@30 Drips: NE 30, Dobut 2.5, IVUH I&O: Intake and Output 10/19/18 10/20/18 19:00 07:00 Intake Total 907.921 ml 1000.320 ml Balance 907.921 ml 1000.320 ml Intake Oral 0 ml 0 ml IV Total 907.921 ml 1000.320 ml # Bowel Movements 1 1 Subjective: ZACHARY ET-Tube: 7.5 ET Position: 23 Labs: Laboratory Tests Test 10/18/18 11:25 10/18/18 13:25 10/18/18 16:45 10/18/18 17:15 Prothrombin Time 20.2 SEC (9.30-11.50) H Prothrombin Time INR 2.0 (0.9-1.1) H PTT 46 SEC (23-33) H 48 SEC (23-33) H Arterial Blood pH 7.113 (7.350-7.450) 7.145 (7.350-7.450) Arterial Blood Partial Pressure CO2 40.8 mmHg (35.0-45.0) 40.5 mmHg (35.0-45.0) Arterial Blood Partial Pressure O2 43.4 mmHg (75.0-100.0) 180.9 mmHg (75.0-100.0) H Arterial Blood HCO3 12.8 mmol/L (22.0-26.0) *L 13.6 mmol/L (22.0-26.0) *L Arterial Blood Oxygen Saturation 57.9 % (95-100) *L 98.7 % (95-100) Arterial Blood Base Excess -15.7 (-2-2) *L -14.4 (-2-2) *L Tee Test Positive Positive White Blood Count 13.0 K/UL (4.8-10.8) H Red Blood Count 2.97 M/UL (4.70-6.10) L Hemoglobin 7.8 G/DL (14.2-18.0) L Hematocrit 25.7 % (42.0-52.0) L Mean Corpuscular Volume 86 FL (80-99) Mean Corpuscular Hemoglobin 26.4 PG (27.0-31.0) L Mean Corpuscular Hemoglobin Concent 30.6 G/DL (32.0-36.0) L Red Cell Distribution Width 19.1 % (11.6-14.8) H Platelet Count 231 K/UL (150-450) Mean Platelet Volume 4.8 FL (6.5-10.1) L Neutrophils (%) (Auto) % (45.0-75.0) Lymphocytes (%) (Auto) % (20.0-45.0) Monocytes (%) (Auto) % (1.0-10.0) Eosinophils (%) (Auto) % (0.0-3.0) Basophils (%) (Auto) % (0.0-2.0) Differential Total Cells Counted 100 Neutrophils % (Manual) 87 % (45-75) H Lymphocytes % (Manual) 6 % (20-45) L Monocytes % (Manual) 4 % (1-10) Eosinophils % (Manual) 0 % (0-3) Basophils % (Manual) 0 % (0-2) Band Neutrophils 3 % (0-8) Platelet Estimate Adequate Platelet Morphology Normal Hypochromasia 2+ Anisocytosis 2+ Sodium Level 127 MMOL/L (136-145) L Potassium Level 5.7 MMOL/L (3.5-5.1) H Chloride Level 86 MMOL/L (98-107) L Carbon Dioxide Level 18 MMOL/L (21-32) L Anion Gap 24 mmol/L (5-15) H Blood Urea Nitrogen 120 mg/dL (7-18) H Creatinine 6.4 MG/DL (0.55-1.30) H Estimate Glomerular Filtration Rate mL/min (>60) Glucose Level 125 MG/DL (74-106) H Calcium Level 6.2 MG/DL (8.5-10.1) L Troponin I 0.657 ng/mL (0.000-0.056) Hepatitis A IgM Antibody Negative (Negative) Hepatitis B Surface Antigen Negative (Negative) Hepatitis B Core IgM Antibody Negative (Negative) Hepatitis C Antibody <0.1 s/co ratio Test 10/18/18 20:37 10/19/18 06:00 10/19/18 08:05 10/19/18 15:00 Arterial Blood pH 7.294 (7.350-7.450) 7.273 (7.350-7.450) Arterial Blood Partial Pressure CO2 45.5 mmHg (35.0-45.0) H 38.7 mmHg (35.0-45.0) Arterial Blood Partial Pressure O2 120.7 mmHg (75.0-100.0) H 139.4 mmHg (75.0-100.0) H Arterial Blood HCO3 21.6 mmol/L (22.0-26.0) L 17.5 mmol/L (22.0-26.0) *L Arterial Blood Oxygen Saturation 97.3 % (95-100) 97.8 % (95-100) Arterial Blood Base Excess -4.7 (-2-2) L -8.7 (-2-2) L Tee Test Positive Positive White Blood Count 16.0 K/UL (4.8-10.8) H Red Blood Count 2.82 M/UL (4.70-6.10) L Hemoglobin 7.2 G/DL (14.2-18.0) L Hematocrit 23.9 % (42.0-52.0) L Mean Corpuscular Volume 85 FL (80-99) Mean Corpuscular Hemoglobin 25.6 PG (27.0-31.0) L Mean Corpuscular Hemoglobin Concent 30.2 G/DL (32.0-36.0) L Red Cell Distribution Width 20.0 % (11.6-14.8) H Platelet Count 186 K/UL (150-450) Mean Platelet Volume 6.5 FL (6.5-10.1) Neutrophils (%) (Auto) % (45.0-75.0) Lymphocytes (%) (Auto) % (20.0-45.0) Monocytes (%) (Auto) % (1.0-10.0) Eosinophils (%) (Auto) % (0.0-3.0) Basophils (%) (Auto) % (0.0-2.0) Differential Total Cells Counted 100 Neutrophils % (Manual) 91 % (45-75) H Lymphocytes % (Manual) 2 % (20-45) L Monocytes % (Manual) 4 % (1-10) Eosinophils % (Manual) 0 % (0-3) Basophils % (Manual) 0 % (0-2) Band Neutrophils 3 % (0-8) Platelet Estimate Adequate Platelet Morphology Normal Polychromasia 1+ Hypochromasia 1+ Anisocytosis 2+ PTT > 150 SEC (23-33) *H > 150 SEC (23-33) *H Sodium Level 133 MMOL/L (136-145) L Potassium Level 5.3 MMOL/L (3.5-5.1) H Chloride Level 91 MMOL/L (98-107) L Carbon Dioxide Level 19 MMOL/L (21-32) L Anion Gap 23 mmol/L (5-15) H Blood Urea Nitrogen 89 mg/dL (7-18) H Creatinine 5.2 MG/DL (0.55-1.30) H Estimate Glomerular Filtration Rate mL/min (>60) Glucose Level 22 MG/DL (74-106) #*L Calcium Level 6.5 MG/DL (8.5-10.1) L Test 10/19/18 17:30 10/19/18 19:29 10/19/18 20:55 10/19/18 23:00 Arterial Blood pH 7.185 (7.350-7.450) 7.340 (7.350-7.450) Arterial Blood Partial Pressure CO2 42.8 mmHg (35.0-45.0) 33.6 mmHg (35.0-45.0) L Arterial Blood Partial Pressure O2 111.8 mmHg (75.0-100.0) H 83.3 mmHg (75.0-100.0) Arterial Blood HCO3 15.8 mmol/L (22.0-26.0) *L 17.7 mmol/L (22.0-26.0) *L Arterial Blood Oxygen Saturation 96.6 % (95-100) 83.3 % (95-100) *L Arterial Blood Base Excess -11.8 (-2-2) *L -7.2 (-2-2) L Tee Test Positive Positive Vitamin B12 Level > 2000 PG/ML (193-986) H Thyroid Stimulating Hormone (TSH) 0.441 uiU/mL (0.358-3.740) PTT 63 SEC (23-33) H Ammonia 34 umol/L (11-32) H Test 10/20/18 06:00 White Blood Count 20.9 K/UL (4.8-10.8) H Red Blood Count 3.58 M/UL (4.70-6.10) L Hemoglobin 9.6 G/DL (14.2-18.0) #L Hematocrit 30.4 % (42.0-52.0) L Mean Corpuscular Volume 85 FL (80-99) Mean Corpuscular Hemoglobin 26.8 PG (27.0-31.0) L Mean Corpuscular Hemoglobin Concent 31.5 G/DL (32.0-36.0) L Red Cell Distribution Width 19.5 % (11.6-14.8) H Platelet Count 166 K/UL (150-450) Mean Platelet Volume 6.5 FL (6.5-10.1) Neutrophils (%) (Auto) % (45.0-75.0) Lymphocytes (%) (Auto) % (20.0-45.0) Monocytes (%) (Auto) % (1.0-10.0) Eosinophils (%) (Auto) % (0.0-3.0) Basophils (%) (Auto) % (0.0-2.0) Neutrophils % (Manual) Pending Lymphocytes % (Manual) Pending Platelet Estimate Pending Platelet Morphology Pending PTT 118 SEC (23-33) H Sodium Level 125 MMOL/L (136-145) L Potassium Level 5.4 MMOL/L (3.5-5.1) H Chloride Level 85 MMOL/L (98-107) L Carbon Dioxide Level 17 MMOL/L (21-32) L Anion Gap 23 mmol/L (5-15) H Blood Urea Nitrogen 91 mg/dL (7-18) H Creatinine 5.7 MG/DL (0.55-1.30) H Estimate Glomerular Filtration Rate mL/min (>60) Glucose Level 184 MG/DL (74-106) #H Calcium Level 6.1 MG/DL (8.5-10.1) L Total Bilirubin 3.1 MG/DL (0.2-1.0) H Direct Bilirubin 2.4 MG/DL (0.0-0.3) H Aspartate Amino Transferase (AST) 1765 U/L (15-37) H Alanine Aminotransferase (ALT) 891 U/L (12-78) H Alkaline Phosphatase 93 U/L (46-116) Total Protein 6.2 G/DL (6.4-8.2) L Albumin 2.5 G/DL (3.4-5.0) L Chidi Bourne MD Oct 20, 2018 08:50
--- NOTE | 2018-10-20 08:50 | Diagnostic Imaging Report ---
Indication: Post intubation Technique: One view of the chest Comparison: 7 hours earlier Findings: Interim endotracheal intubation, endotracheal tube tip projecting approximately for cm above the wendy, in good position. Stable satisfactory positions of right external jugular temporary dialysis catheter, left arm PICC. Bilateral pleural effusions and basilar atelectatic changes persist, stable. Impression: Satisfactory endotracheal intubation Other stable findings as described This agrees with the preliminary interpretation provided overnight by [facility] teleradiology service.
[2018-10-20] MEDS: POLYMYXIN B SULFATE IVPB SCH ×2 (09:58→20:44)
[2018-10-20] MEDS: D5W IVPB SCH ×2 (09:58→20:44)
--- NOTE | 2018-10-20 10:05 | NUR ---
RADIOLOGY DEPT CHEST AND ABDOMEN (ORAL TUBE PLMT) X-RAYS COMPLETED.-ASIF Addendum: 10/20/18 at 1007 by FRANKLIN BURGESS [facility] RAD RADIOLOGY DEPT NOTE WRONG ENTRY OF X-RAY EXAM. PLEASE DISCARD PRIOR ENTRY.-ASIFRJimi
--- NOTE | 2018-10-20 10:13 | NUR ---
RD ASSESSMENT & RECOMMENDATIONS SEE CARE ACTIVITY FOR COMPLETE ASSESSMENT DAILY ESTIMATED NEEDS: Needs based on DM, CHF, renal dysfunction w/ HD, critical care/ 64.5kg 25-30 kcals/kg 8967-5697 total kcals (without HD: 0.6-0.8) (with HD: 1.25-2) g protein/kg (without HD: 38-51) (with HD: 81-129) g total protein Fluid per MD, now on HD NUTRITION DIAGNOSIS: 1) Altered nutrition related lab values R/T DM w/ hypoglycemia, CHF, renal dysfunction as evidenced by critically low hypoglycemic episodes, now improved (POC 93-139), elev BNP (06767), elev BUN/ creat (104/ 5.3 both trend up), low Na (127). 2) Swallowing difficulty r/t respiratory distress as evidenced by pt now s/p oral intubation, on pressor support, ICU status. 3) Increased kcal and protein needs r/t renal dysfunction and wound healing as evidenced by pt now on HD, and w/ partial thickness R gluteal cleft wound. 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 - Obtain GI access, start NEPRO @20ml/hr x6 hrs - Advance as tolerated 10ml q4-6 hrs to goal - Flush per MD. HOB over 30 degrees ------ REC TROPHIC FEEDS OF 5-10ML/HR TO MAINTAIN GUT INTEGRITY IF PT NOT HEMODYNAMICALLY STABLE FOR FEEDS AT GOAL ADDITIONAL RECOMMENDATIONS: * Calibrated bedscale wt, daily wts per policy (CHF dx, now on HD) -> now w/ added P200 mattress + pump (est 25#) * Monitor lytes closely- worsening renal fxn -check follow up Phos level * TF recs as above when hemodynamically stable for feeds * WOUND CARE: w/ GI access, add DAPHNE BID
--- NOTE | 2018-10-20 10:30 | NUR ---
NURSE NOTES: Attempted to insert NGT, pt desaturated to 78%. will reattempt when pt is stable.
--- NOTE | 2018-10-20 10:50 | NUR ---
NURSE NOTES: Dr. Bourne made aware of ABG result. no new orders at this time.
--- NOTE | 2018-10-20 11:49 | General Progress Note ---
Assessment/Plan Problem List: (1) Acute metabolic encephalopathy ICD Codes: G93.41 - Metabolic encephalopathy SNOMED: 17213662, [id number] Status: unchanged Assessment/Plan the pt lacks capacity to make decisions next of keen should makes all the decisions cont bilat restraints haldol prn for agitation rec dnr/dni Subjective Neurologic/Psychiatric: Reports: anxiety, depressed, emotional problems Allergies: Coded Allergies: PENICILLINS (Verified Allergy, Unknown, 10/09/18) Subjective the pt is more lethargic opens eyes on verbal stimuli agitated at times Objective Last 24 Hour Vital Signs Date Time Temp Pulse Resp B/P (MAP) Pulse Ox O2 Delivery O2 Flow Rate FiO2 10/20/18 09:09 105/41 10/20/18 08:00 35 10/20/18 08:00 Mechanical Ventilator Room Air 10/20/18 08:00 87 10/20/18 07:00 83 27 97 Mechanical Ventilator 35 10/20/18 07:00 86 23 35 10/20/18 06:49 83 25 96 Mechanical Ventilator 35 10/20/18 06:30 87 24 109/39 (62) 98 10/20/18 06:15 88 22 111/40 (63) 98 10/20/18 06:00 87 20 105/47 (66) 98 10/20/18 05:45 88 22 103/42 (62) 98 10/20/18 05:30 87 20 107/38 (61) 98 10/20/18 05:21 90 23 35 10/20/18 05:15 88 21 100/39 (59) 98 10/20/18 05:00 90 23 106/41 (62) 98 10/20/18 04:45 87 20 109/50 (69) 99 10/20/18 04:30 87 19 103/40 (61) 98 10/20/18 04:15 87 18 108/42 (64) 98 10/20/18 04:00 Bi-pap Room Air 10/20/18 04:00 35 10/20/18 04:00 87 10/20/18 04:00 97.6 87 19 114/45 (68) 98 10/20/18 03:45 87 18 102/57 (72) 98 10/20/18 03:30 87 18 106/44 (64) 98 10/20/18 03:15 88 18 10/40 (30) 98 10/20/18 03:07 89 25 35 10/20/18 03:00 88 20 105/41 (62) 98 10/20/18 02:45 90 15 109/39 (62) 98 10/20/18 02:30 90 15 117/39 (65) 98 10/20/18 02:00 90 18 109/44 (65) 98 10/20/18 01:45 88 16 107/42 (63) 99 10/20/18 01:44 99/37 10/20/18 01:30 87 17 99/47 (64) 99 10/20/18 01:13 85 27 100 Mechanical Ventilator 35 10/20/18 01:07 88 27 99 Mechanical Ventilator 35 10/20/18 01:04 88 27 35 10/20/18 01:00 89 20 102/43 (62) 99 10/20/18 00:30 91 14 124/41 (68) 97 10/20/18 00:00 91 10/20/18 00:00 Bi-pap Room Air 10/20/18 00:00 97.8 92 16 103/42 (62) 100 10/20/18 00:00 35 10/19/18 23:15 93 20 103/74 (84) 100 10/19/18 23:14 81 27 35 10/19/18 23:00 93 20 108/76 (87) 100 10/19/18 22:45 91 20 113/78 (90) 100 10/19/18 22:30 92 20 111/72 (85) 100 10/19/18 22:15 93 20 114/80 (91) 100 10/19/18 22:00 84 18 104/36 (58) 100 10/19/18 21:45 83 16 108/39 (62) 100 10/19/18 21:33 82 28 35 10/19/18 21:30 83 15 107/41 (63) 100 10/19/18 21:15 83 20 106/43 (64) 100 10/19/18 21:06 110/40 10/19/18 21:00 84 17 105/37 (59) 100 10/19/18 20:53 109/41 10/19/18 20:45 87 17 110/40 (63) 99 10/19/18 20:30 89 17 127/37 (67) 98 10/19/18 20:15 84 19 113/37 (62) 100 10/19/18 20:00 80 18 98/31 (53) 98 10/19/18 20:00 Bi-pap Room Air 10/19/18 20:00 80 10/19/18 20:00 35 10/19/18 19:45 80 24 99/32 (54) 98 10/19/18 19:30 80 24 100/30 (53) 98 10/19/18 19:30 35 10/19/18 19:24 79 26 100 Mechanical Ventilator 35 10/19/18 19:15 80 22 105/32 (56) 100 10/19/18 19:03 81 24 100 Mechanical Ventilator 35 10/19/18 19:00 79 23 98/58 (71) 100 10/19/18 18:57 78 25 35 10/19/18 18:30 97.3 79 23 93/32 (52) 97 10/19/18 18:00 80 21 35 10/19/18 18:00 78 23 82/51 (61) 98 10/19/18 17:30 96 23 91/20 (43) 100 10/19/18 17:00 92 23 91/35 (53) 100 10/19/18 16:55 92 17 99 Full Face 35 10/19/18 16:30 92 26 99/38 (58) 100 10/19/18 16:00 96 10/19/18 16:00 69/38 10/19/18 16:00 50 10/19/18 16:00 96.8 92 16 69/38 (48) 100 10/19/18 16:00 Bi-pap Room Air 10/19/18 15:49 82/52 10/19/18 15:30 92 16 69/38 (48) 100 10/19/18 15:12 108/15 10/19/18 15:00 92 16 113/99 (104) 100 10/19/18 15:00 113/99 10/19/18 14:30 90 16 108/27 (54) 100 10/19/18 14:00 109/13 10/19/18 14:00 92 16 108/15 (46) 100 10/19/18 13:30 85 16 110/27 (54) 100 10/19/18 13:20 88 17 99 Bi-pap 35 10/19/18 13:09 89 17 96 Bi-pap 35 10/19/18 13:08 91 17 99 Full Face 35 10/19/18 13:00 106/19 10/19/18 13:00 89 16 106/ (48) 100 10/19/18 12:45 121/37 10/19/18 12:33 95/15 10/19/18 12:30 83 16 99/29 (52) 100 10/19/18 12:00 Bi-pap Room Air 10/19/18 12:00 73 16 101/20 (47) 100 10/19/18 12:00 50 10/19/18 12:00 73 10/19/18 12:00 95/15 10/19/18 12:00 101/20 Intake and Output 10/19/18 10/20/18 19:00 07:00 Intake Total 907.921 ml 1000.320 ml Balance 907.921 ml 1000.320 ml Intake Oral 0 ml 0 ml IV Total 907.921 ml 1000.320 ml # Bowel Movements 1 1 Laboratory Tests 10/19/18 15:00: Activated Partial Thromboplast Time > 150*H 10/19/18 17:30: Arterial Blood pH 7.185*L, Arterial Blood Partial Pressure CO2 42.8, Arterial Blood Partial Pressure O2 111.8H, Arterial Blood HCO3 15.8*L, Arterial Blood Oxygen Saturation 96.6, Arterial Blood Base Excess -11.8*L, Tee Test Positive 10/19/18 19:29: Arterial Blood pH 7.340L, Arterial Blood Partial Pressure CO2 33.6L, Arterial Blood Partial Pressure O2 83.3, Arterial Blood HCO3 17.7*L, Arterial Blood Oxygen Saturation 83.3*L, Arterial Blood Base Excess -7.2L, Tee Test Positive 10/19/18 20:55: Vitamin B12 Level > 2000H, Thyroid Stimulating Hormone (TSH) 0.441 10/19/18 23:00: Activated Partial Thromboplast Time 63H, Ammonia 34H 10/20/18 06:00: Activated Partial Thromboplast Time 118H, White Blood Count 20.9H, Red Blood Count 3.58L, Hemoglobin 9.6#L, Hematocrit 30.4L, Mean Corpuscular Volume 85, Mean Corpuscular Hemoglobin 26.8L, Mean Corpuscular Hemoglobin Concent 31.5L, Red Cell Distribution Width 19.5H, Platelet Count 166, Mean Platelet Volume 6.5 , Neutrophils (%) (Auto) , Lymphocytes (%) (Auto) , Monocytes (%) (Auto) , Eosinophils (%) (Auto) , Basophils (%) (Auto) , Differential Total Cells Counted 100, Neutrophils % (Manual) 90H, Lymphocytes % (Manual) 1L, Monocytes % (Manual) 7, Eosinophils % (Manual) 0, Basophils % (Manual) 0, Band Neutrophils 2 , Nucleated Red Blood Cells 3, Platelet Estimate Adequate, Platelet Morphology Normal, Polychromasia 1+, Hypochromasia 1+, Anisocytosis 2+, Sodium Level 125L, Potassium Level 5.4H, Chloride Level 85L, Carbon Dioxide Level 17L, Anion Gap 23H, Blood Urea Nitrogen 91H, Creatinine 5.7H, Estimat Glomerular Filtration Rate , Glucose Level 184#H, Calcium Level 6.1L, Total Bilirubin 3.1H, Direct Bilirubin 2.4H, Aspartate Amino Transf (AST/SGOT) 1765H, Alanine Aminotransferase (ALT/SGPT) 891H, Alkaline Phosphatase 93, Total Protein 6.2L, Albumin 2.5L 10/20/18 11:05: Arterial Blood pH 7.339L, Arterial Blood Partial Pressure CO2 29.7L, Arterial Blood Partial Pressure O2 104.4H, Arterial Blood HCO3 15.6*L, Arterial Blood Oxygen Saturation 95.9, Arterial Blood Base Excess -9.0L, Tee Test Positive Height (Feet): 5 Height (Inches): 2.00 Weight (Pounds): 148 General Appearance: alert - waxing and waning of conciousness. , lethargic - waxing and waning Neurologic: disoriented, depressed affect Danna Sanchez MD Oct 20, 2018 11:49
[2018-10-20] MEDS: DOPamine 400mg/250ml 250 ML IV SCH ×2 (12:45→17:43)
--- NOTE | 2018-10-20 12:50 | NUR ---
NURSE NOTES: OGT inserted, waiting for KUB result for placement.
--- NOTE | 2018-10-20 13:20 | NUR ---
RADIOLOGY DEPT ABDOMEN X-RAY FOR NGT PLMT COMPLETED.-[email or web address]
--- NOTE | 2018-10-20 13:55 | NUR ---
NURSE NOTES: PTT drawn and sent down to lab.
--- NOTE | 2018-10-20 14:43 | NUR ---
NURSE NOTES: Dr. Porter at bedside to assess the patient. MD updated on pt's condition. No new orders at this time.
--- NOTE | 2018-10-20 14:44 | Nephrology Progress Note ---
Assessment/Plan Problem List: (1) Acute kidney injury superimposed on CKD Assessment: no recovery (2) CHF (congestive heart failure) (3) NSTEMI (non-ST elevated myocardial infarction) (4) Hypotension (5) Pneumonia (6) Hypoglycemia (7) Respiratory failure, acute (8) Sepsis (9) Hyponatremia Plan HD today as tolerated Discussed with Dr Bourne and RN continue pressors abxs per ID follow labs Subjective Subjective Seen in ICU intubated Objective Objective Last 24 Hour Vital Signs Date Time Temp Pulse Resp B/P (MAP) Pulse Ox O2 Delivery O2 Flow Rate FiO2 10/20/18 14:07 110/84 10/20/18 13:24 83 27 40 10/20/18 13:24 83 27 99 Mechanical Ventilator 40 10/20/18 13:15 83 22 110/84 (93) 98 10/20/18 13:14 83 20 99 Mechanical Ventilator 35 10/20/18 13:00 83 22 105/43 (63) 98 10/20/18 12:45 85 24 91/41 (58) 98 10/20/18 12:30 93 24 91/44 (60) 98 10/20/18 12:15 93 22 110/84 (93) 98 10/20/18 12:00 40 10/20/18 12:00 93 10/20/18 12:00 98.6 93 24 101/53 (69) 98 10/20/18 12:00 Mechanical Ventilator Room Air 10/20/18 11:45 92 24 108/54 (72) 98 10/20/18 11:30 93 24 107/55 (72) 98 10/20/18 11:15 92 24 98/87 (91) 98 10/20/18 11:00 113/48 10/20/18 11:00 93 22 117/47 (70) 98 10/20/18 11:00 91 30 40 10/20/18 10:45 92 23 113/48 (69) 96 10/20/18 10:30 89 24 115/78 (90) 96 10/20/18 10:15 89 24 106/60 (75) 98 10/20/18 10:00 84 22 96/49 (65) 97 10/20/18 10:00 96/49 10/20/18 09:45 85 24 108/45 (66) 98 10/20/18 09:30 84 24 109/41 (63) 98 10/20/18 09:15 84 24 109/41 (63) 98 10/20/18 09:09 105/41 10/20/18 09:00 83 22 98/42 (60) 97 10/20/18 09:00 98/42 10/20/18 08:45 82 24 109/39 (62) 98 10/20/18 08:40 85 25 35 10/20/18 08:30 86 24 94/42 (59) 96 10/20/18 08:15 85 20 100/37 (58) 98 10/20/18 08:00 35 10/20/18 08:00 98.3 86 20 101/46 (64) 98 10/20/18 08:00 101/46 10/20/18 08:00 Mechanical Ventilator Room Air 10/20/18 08:00 87 10/20/18 07:45 86 22 105/41 (62) 95 10/20/18 07:30 87 24 102/73 (83) 93 10/20/18 07:00 83 27 97 Mechanical Ventilator 35 10/20/18 07:00 83 22 94/43 (60) 93 10/20/18 07:00 84/50 10/20/18 07:00 86 23 35 10/20/18 06:49 83 25 96 Mechanical Ventilator 35 10/20/18 06:30 87 24 109/39 (62) 98 10/20/18 06:15 88 22 111/40 (63) 98 10/20/18 06:00 87 20 105/47 (66) 98 10/20/18 05:45 88 22 103/42 (62) 98 10/20/18 05:30 87 20 107/38 (61) 98 10/20/18 05:21 90 23 35 10/20/18 05:15 88 21 100/39 (59) 98 10/20/18 05:00 90 23 106/41 (62) 98 10/20/18 04:45 87 20 109/50 (69) 99 10/20/18 04:30 87 19 103/40 (61) 98 10/20/18 04:15 87 18 108/42 (64) 98 10/20/18 04:00 Bi-pap Room Air 10/20/18 04:00 35 10/20/18 04:00 87 10/20/18 04:00 97.6 87 19 114/45 (68) 98 10/20/18 03:45 87 18 102/57 (72) 98 10/20/18 03:30 87 18 106/44 (64) 98 10/20/18 03:15 88 18 10/40 (30) 98 10/20/18 03:07 89 25 35 10/20/18 03:00 88 20 105/41 (62) 98 10/20/18 02:45 90 15 109/39 (62) 98 10/20/18 02:30 90 15 117/39 (65) 98 10/20/18 02:00 90 18 109/44 (65) 98 10/20/18 01:45 88 16 107/42 (63) 99 10/20/18 01:44 99/37 10/20/18 01:30 87 17 99/47 (64) 99 10/20/18 01:13 85 27 100 Mechanical Ventilator 35 10/20/18 01:07 88 27 99 Mechanical Ventilator 35 10/20/18 01:04 88 27 35 10/20/18 01:00 89 20 102/43 (62) 99 10/20/18 00:30 91 14 124/41 (68) 97 10/20/18 00:00 91 10/20/18 00:00 Bi-pap Room Air 10/20/18 00:00 97.8 92 16 103/42 (62) 100 10/20/18 00:00 35 10/19/18 23:15 93 20 103/74 (84) 100 10/19/18 23:14 81 27 35 10/19/18 23:00 93 20 108/76 (87) 100 10/19/18 22:45 91 20 113/78 (90) 100 10/19/18 22:30 92 20 111/72 (85) 100 10/19/18 22:15 93 20 114/80 (91) 100 10/19/18 22:00 84 18 104/36 (58) 100 10/19/18 21:45 83 16 108/39 (62) 100 10/19/18 21:33 82 28 35 10/19/18 21:30 83 15 107/41 (63) 100 10/19/18 21:15 83 20 106/43 (64) 100 10/19/18 21:06 110/40 10/19/18 21:00 84 17 105/37 (59) 100 10/19/18 20:53 109/41 10/19/18 20:45 87 17 110/40 (63) 99 10/19/18 20:30 89 17 127/37 (67) 98 10/19/18 20:15 84 19 113/37 (62) 100 10/19/18 20:00 80 18 98/31 (53) 98 10/19/18 20:00 Bi-pap Room Air 10/19/18 20:00 80 10/19/18 20:00 35 10/19/18 19:45 80 24 99/32 (54) 98 10/19/18 19:30 80 24 100/30 (53) 98 10/19/18 19:30 35 10/19/18 19:24 79 26 100 Mechanical Ventilator 35 10/19/18 19:15 80 22 105/32 (56) 100 10/19/18 19:03 81 24 100 Mechanical Ventilator 35 10/19/18 19:00 79 23 98/58 (71) 100 10/19/18 18:57 78 25 35 10/19/18 18:30 97.3 79 23 93/32 (52) 97 10/19/18 18:00 80 21 35 10/19/18 18:00 78 23 82/51 (61) 98 10/19/18 17:30 96 23 91/20 (43) 100 10/19/18 17:00 92 23 91/35 (53) 100 10/19/18 16:55 92 17 99 Full Face 35 10/19/18 16:30 92 26 99/38 (58) 100 10/19/18 16:00 96 10/19/18 16:00 69/38 10/19/18 16:00 50 10/19/18 16:00 96.8 92 16 69/38 (48) 100 10/19/18 16:00 Bi-pap Room Air 10/19/18 15:49 82/52 10/19/18 15:30 92 16 69/38 (48) 100 10/19/18 15:12 108/15 10/19/18 15:00 92 16 113/99 (104) 100 10/19/18 15:00 113/99 Intake and Output 10/19/18 10/20/18 18:59 06:59 Intake Total 806.25 ml 1101.991 ml Balance 806.25 ml 1101.991 ml Intake Oral 0 ml 0 ml IV Total 806.25 ml 1101.991 ml # Bowel Movements 1 1 Laboratory Tests 10/19/18 15:00: Activated Partial Thromboplast Time > 150*H 10/19/18 17:30: Arterial Blood pH 7.185*L, Arterial Blood Partial Pressure CO2 42.8, Arterial Blood Partial Pressure O2 111.8H, Arterial Blood HCO3 15.8*L, Arterial Blood Oxygen Saturation 96.6, Arterial Blood Base Excess -11.8*L, Tee Test Positive 10/19/18 19:29: Arterial Blood pH 7.340L, Arterial Blood Partial Pressure CO2 33.6L, Arterial Blood Partial Pressure O2 83.3, Arterial Blood HCO3 17.7*L, Arterial Blood Oxygen Saturation 83.3*L, Arterial Blood Base Excess -7.2L, Tee Test Positive 10/19/18 20:55: Vitamin B12 Level > 2000H, Thyroid Stimulating Hormone (TSH) 0.441 10/19/18 23:00: Activated Partial Thromboplast Time 63H, Ammonia 34H 10/20/18 06:00: Activated Partial Thromboplast Time 118H, White Blood Count 20.9H, Red Blood Count 3.58L, Hemoglobin 9.6#L, Hematocrit 30.4L, Mean Corpuscular Volume 85, Mean Corpuscular Hemoglobin 26.8L, Mean Corpuscular Hemoglobin Concent 31.5L, Red Cell Distribution Width 19.5H, Platelet Count 166, Mean Platelet Volume 6.5 , Neutrophils (%) (Auto) , Lymphocytes (%) (Auto) , Monocytes (%) (Auto) , Eosinophils (%) (Auto) , Basophils (%) (Auto) , Differential Total Cells Counted 100, Neutrophils % (Manual) 90H, Lymphocytes % (Manual) 1L, Monocytes % (Manual) 7, Eosinophils % (Manual) 0, Basophils % (Manual) 0, Band Neutrophils 2 , Nucleated Red Blood Cells 3, Platelet Estimate Adequate, Platelet Morphology Normal, Polychromasia 1+, Hypochromasia 1+, Anisocytosis 2+, Sodium Level 125L, Potassium Level 5.4H, Chloride Level 85L, Carbon Dioxide Level 17L, Anion Gap 23H, Blood Urea Nitrogen 91H, Creatinine 5.7H, Estimat Glomerular Filtration Rate , Glucose Level 184#H, Calcium Level 6.1L, Total Bilirubin 3.1H, Direct Bilirubin 2.4H, Aspartate Amino Transf (AST/SGOT) 1765H, Alanine Aminotransferase (ALT/SGPT) 891H, Alkaline Phosphatase 93, Total Protein 6.2L, Albumin 2.5L 10/20/18 11:05: Arterial Blood pH 7.339L, Arterial Blood Partial Pressure CO2 29.7L, Arterial Blood Partial Pressure O2 104.4H, Arterial Blood HCO3 15.6*L, Arterial Blood Oxygen Saturation 95.9, Arterial Blood Base Excess -9.0L, Tee Test Positive 10/20/18 13:50: Activated Partial Thromboplast Time 73H Height (Feet): 5 Height (Inches): 2.00 Weight (Pounds): 148 Cardiovascular: normal rate Respiratory/Chest: rhonchi - bilaterally Extremities: severe edema Mario Porter MD Oct 20, 2018 14:44
--- NOTE | 2018-10-20 15:08 | Diagnostic Imaging Report ---
Indication: Post nasogastric tube placement Technique: Supine view of the upper abdomen Comparison: none Findings: There is a nasogastric tube in place, tip and proximal port within the gastric fundus. Prominent gas-filled colon is noted. There are bilateral pleural effusions Impression: Satisfactory position of nasogastric tube Patient's nurse notified at the time of interpretation
--- NOTE | 2018-10-20 16:28 | NUR ---
NURSE NOTES: hemodialysis ongoing, HD nurse at bedside.
--- NOTE | 2018-10-20 16:44 | NUR ---
NURSE NOTES: BP dropped to 56/28. dialysis nurse informed Dr. Porter. HD stopped per . BP improved, 103/42.
--- NOTE | 2018-10-20 17:00 | Cardiology Report ---
APPROVED REPORT EKG Measurement Heart [id number] Sinus rhythm with 1st degree AV block Right bundle branch block Possible Lateral infarct, age undetermined Abnormal ECG
[2018-10-20] MEDS: Docusate 100mg/10ml Liq GT SCH (17:19)
[2018-10-20] MEDS: Tums 500mg GT SCH (17:19)
[2018-10-20] MEDS ORDERED: Norepinephrine Bitartrate 16 MG in D5W 500ml 550 ML IV SCH (18:00)
[2018-10-20] MEDS: Norepinephrine Bitartrate 16 MG in D5W 500ml 484 ML IV SCH (18:06)
--- NOTE | 2018-10-20 18:56 | Neurology Progress Note ---
Interim History Interim History Interim History Mr. Gann continues to be poorly responsive. He however open his eyes on loud vocal stimulation. He continues to move his left side more then the right. He has been unable to go for his brain CT as he is still on pressors. He continues to be acutely ill. Review of Systems Neuro Review of Systems Unable to obtain. Objective Physical Exam Last Vital Signs Date Time Temp Pulse Resp B/P (MAP) Pulse Ox O2 Delivery O2 Flow Rate FiO2 10/20/18 18:06 110/44 10/20/18 18:00 100 23 99 10/20/18 17:08 40 10/20/18 16:23 Endotracheal Tube 40.0 10/20/18 16:00 98.5 Laboratory Tests Test 10/19/18 19:29 10/19/18 20:55 10/19/18 23:00 10/20/18 06:00 Arterial Blood pH 7.340 (7.350-7.450) Arterial Blood Partial Pressure CO2 33.6 mmHg (35.0-45.0) L Arterial Blood Partial Pressure O2 83.3 mmHg (75.0-100.0) Arterial Blood HCO3 17.7 mmol/L (22.0-26.0) *L Arterial Blood Oxygen Saturation 83.3 % (95-100) *L Arterial Blood Base Excess -7.2 (-2-2) L Tee Test Positive Vitamin B12 Level > 2000 PG/ML (193-986) H Thyroid Stimulating Hormone (TSH) 0.441 uiU/mL (0.358-3.740) Activated Partial Thromboplast Time 63 SEC (23-33) H 118 SEC (23-33) H Ammonia 34 umol/L (11-32) H White Blood Count 20.9 K/UL (4.8-10.8) H Red Blood Count 3.58 M/UL (4.70-6.10) L Hemoglobin 9.6 G/DL (14.2-18.0) #L Hematocrit 30.4 % (42.0-52.0) L Mean Corpuscular Volume 85 FL (80-99) Mean Corpuscular Hemoglobin 26.8 PG (27.0-31.0) L Mean Corpuscular Hemoglobin Concent 31.5 G/DL (32.0-36.0) L Red Cell Distribution Width 19.5 % (11.6-14.8) H Platelet Count 166 K/UL (150-450) Mean Platelet Volume 6.5 FL (6.5-10.1) Neutrophils (%) (Auto) % (45.0-75.0) Lymphocytes (%) (Auto) % (20.0-45.0) Monocytes (%) (Auto) % (1.0-10.0) Eosinophils (%) (Auto) % (0.0-3.0) Basophils (%) (Auto) % (0.0-2.0) Differential Total Cells Counted 100 Neutrophils % (Manual) 90 % (45-75) H Lymphocytes % (Manual) 1 % (20-45) L Monocytes % (Manual) 7 % (1-10) Eosinophils % (Manual) 0 % (0-3) Basophils % (Manual) 0 % (0-2) Band Neutrophils 2 % (0-8) Nucleated Red Blood Cells 3 /100 WBC Platelet Estimate Adequate Platelet Morphology Normal Polychromasia 1+ Hypochromasia 1+ Anisocytosis 2+ Sodium Level 125 MMOL/L (136-145) L Potassium Level 5.4 MMOL/L (3.5-5.1) H Chloride Level 85 MMOL/L (98-107) L Carbon Dioxide Level 17 MMOL/L (21-32) L Anion Gap 23 mmol/L (5-15) H Blood Urea Nitrogen 91 mg/dL (7-18) H Creatinine 5.7 MG/DL (0.55-1.30) H Estimat Glomerular Filtration Rate mL/min (>60) Glucose Level 184 MG/DL (74-106) #H Calcium Level 6.1 MG/DL (8.5-10.1) L Total Bilirubin 3.1 MG/DL (0.2-1.0) H Direct Bilirubin 2.4 MG/DL (0.0-0.3) H Aspartate Amino Transf (AST/SGOT) 1765 U/L (15-37) H Alanine Aminotransferase (ALT/SGPT) 891 U/L (12-78) H Alkaline Phosphatase 93 U/L (46-116) Total Protein 6.2 G/DL (6.4-8.2) L Albumin 2.5 G/DL (3.4-5.0) L Test 10/20/18 11:05 10/20/18 13:50 Arterial Blood pH 7.339 (7.350-7.450) Arterial Blood Partial Pressure CO2 29.7 mmHg (35.0-45.0) L Arterial Blood Partial Pressure O2 104.4 mmHg (75.0-100.0) H Arterial Blood HCO3 15.6 mmol/L (22.0-26.0) *L Arterial Blood Oxygen Saturation 95.9 % (95-100) Arterial Blood Base Excess -9.0 (-2-2) L Tee Test Positive Activated Partial Thromboplast Time 73 SEC (23-33) H Neurologic Exam Objective PHYSICAL EXAMINATION: GENERAL: He is a well-developed, relatively well-nourished gentleman , lying in an ICU bed, connected to a ventilator through an orotracheal tube. HEAD: Normocephalic and atraumatic. NECK: No neck rigidity was observed. EENT: Benign. NEUROLOGICAL EXAMINATION: MENTAL STATUS EXAMINATION: He opened his eyes on loud vocal stimuli. He however did not follow any commands. He was unable to communicate. Further mental status testing was impossible. SPEECH: Could not be tested. LANGUAGE: Could not be tested. CRANIAL NERVE EXAMINATION: II: He did not blink to threat. III, IV & : The external ocular movements were present on oculocephalic maneuvers. The pupils were 3 mm in diameter, equal, round, regular, and did not react to light. V & VII: The corneal reflexes were present bilaterally, but significantly diminished on the right side compared to the left. VIII: He did not respond to sounds and had no nystagmus. IX & X: The gag reflex was absent on manipulating the endotracheal tube. XI: The sternocleidomastoids and trapezii did not function. XII: Could not be tested adequately. MOTOR SYSTEM: The tone was normal in all four extremities. Examination of muscle mass revealed no focal wasting. Examination of power was impossible to perform on individual muscle groups; however, when deep painful stimuli were applied, he moved all four extremities. He exhibited purposeful withdrawal of the left upper extremity but non- purposeful withdrawal of the right upper extremity. In addition withdrawal was weaker on the right than on the left. SENSORY EXAMINATION: He responded appropriately to deep pain. He was unable to cooperate for other sensory modalities. REFLEXES: Trace+ and bilaterally symmetrical at the biceps, triceps, brachioradialis. 0 at both knees and ankles. The plantar response was extensor on the right and mute on the left. COORDINATION, STANCE & GAIT: Could not be tested. Impression/Recommendations Diagnostic Impression 1. Mr. Marla Gann is an 83-year-old, gentleman, of unknown handedness, with a past history of multiple medical problems including hypertension, diabetes mellitus, dyslipidemia, aortic stenosis, vitamin B12 deficiency, vitamin D deficiency, coronary artery disease, congestive heart failure, and intestinal pathology. He was hospitalized on 10/09/2018 for an altered mental state related to multiple metabolic imbalances. He did improve, but then in the hospital, he has had multiple further episodes of hypoglycemia. On the morning of 10/19/18, his blood sugar dropped to 22. He has also had problems with his respiratory function, progressive renal dysfunction, and on the morning of 10/19/18 was noted to have weakness in his right upper extremity, this problem continues. 2. He continues to be poorly responsive. He however open his eyes on loud vocal stimulation. He continues to move his left side more then the right. He has been unable to go for his brain CT as he is still on pressors. He continues to be acutely ill. 3. On neurological examination, at this time, he opens his eyes on loud vocal stimuli, he however does not follow any commands. He is unable to communicate and further mental status testing is impossible. 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 His deep tendon reflexes are globally diminished in the upper extremities and lost in the lower extremities. His plantar response is extensor on the right and mute on the left. 4. His laboratory data on my initial evluation revealed that his WBC count was elevated to 16,000. His hemoglobin was low at 7.2 G. His arterial blood gas revealed a pH of 7.18, a pCO2 of 43, and a pO2 of 112. His chemistry panel revealed a sodium of 133, potassium of 5.3, chloride of 91, BUN at 89, creatinine at 5.2, and blood glucose at 22. 5. His EEG done on 10/19/18 revealed a moderately severe encephalopathy with a definite toxic/metabolic component. 6. The patient's history, neurological examination, and laboratory data are most compatible with significant toxic metabolic encephalopathy that brought into the hospital, and now possibly an acute cerebral lesion causing the right hemiparesis. Recommendations 1. Continue present management. 2. Continue to correct toxic metabolic imbalances. 3. Try to keep the blood pressure >110 mmHg systolic. 4. A CT scan of the brain without contrast should be performed as soon as it is safe for the patient to leave the ICU. 5. Observe closely in ICU setting. Abram Johnson M.D., M.S.P.H. Abram Johnson MD Oct 20, 2018 18:56
--- NOTE | 2018-10-20 19:19 | NUR ---
HAND-OFF: Report given to JACQUI Porter.
--- NOTE | 2018-10-20 19:30 | NUR ---
RESPIRATORY NOTE: Received pt on AC 20, 500VT, 40%, PEEP +5. Pt intubated w/ ETT 7.5 @ 23cm lipline, secured by anchorfast. Pt asleep/disoriented, both hands on soft restraints to prevent pt from self-extubation. B/S munira. rhonchi, sxn small to moderate amounts of thick, oliveira-yellow secretions w/ occasional blood clots. Vent plugged into red outlet, ambubag at bedside. Pt in no apparent distress at this time. Will continue to monitor pt.
--- NOTE | 2018-10-20 19:30 | NUR ---
NURSE NOTES: Recvd.on a vent.orally intubated.See settings.lungs few Rh.Diminished BS at Bases.P.Ox-98-100%.Suctioned Tk.beige with some blood streak sec.NS Lavage.Pos. chg.Does'nt follows command.(R) side weak,(L) on soft wrist restraints prev.self-injury.See V/S.LEVO.drip inf at 30mcg/min.Dopa.drip at 2mcg/kg/min.Scope SR with BBB rare ectopy.Dobutamine in progress at 2.5mcg/min R/T 40%EF.Heparin drip inf.at 3units/kg/hr with ff. protocol.unable to reanna.HD this am.BP drops.Will re-tequila.sherron RUANO aware.
--- NOTE | 2018-10-20 20:09 | Cardiology Progress Note ---
Assessment/Plan Assessment/Plan cardiology critical care 1. Hypoglycemia secondary to medication. 2. Diabetes mellitus previously. 3. Acute Respiratory inusf / hemoptysis 4. History of ischemic cardiomyopathy with ejection fraction of 40%. 5. Mitral regurgitation, [id number] degree on recent echocardiogram last week. 6. Moderate tricuspid regurgitation. 7. Mild pulmonary hypertension with 43 through 48. 8. Pleural effusions history. 9. Abnormal gastric endoscopy, suspicious for malignancy with submucosal resection. 10. Aortic stenosis. 11. Hyperlipidemia. 12. Prostate cancer. 13. Abnormal facial asymmetry. 14. CAD 15. hypotension 16. NSTEMI demand related vs PE related doubt acs 17. acute on chronic renal failure 18. metabolic acidosis 19. hemiparesis 20. hypotension 21. wide pusle pressure imporved v/q was ordered but not done is on heparin is responsive butnto follow commands noted cr increased on dobutamine is on levophed as well echo reviewed has infor post swma and mod mr and ef probley 35-40% , rv is not enlarge ivc ws enlarged at the time was done s/p dialysis yest neuro input appreciated ct ordered but unable to go down due to pressor as well as bipap is on abx bpis better on pressor will need to go ct once hemodynamically more stabel hope by tomorrow Subjective ROS Limited/Unobtainable: Yes Subjective intubated on 3 pressor Objective Last 24 Hour Vital Signs Date Time Temp Pulse Resp B/P (MAP) Pulse Ox O2 Delivery O2 Flow Rate FiO2 10/20/18 19:39 95 24 100 Mechanical Ventilator 40 10/20/18 19:29 97 24 98 Mechanical Ventilator 40 10/20/18 19:28 97 24 40 10/20/18 19:15 97 20 111/56 (74) 98 10/20/18 19:00 111/56 10/20/18 19:00 111/56 10/20/18 18:45 113/51 10/20/18 18:45 99 20 113/51 (71) 98 10/20/18 18:30 99 24 101/46 (64) 97 10/20/18 18:15 102 20 109/57 (74) 100 10/20/18 18:06 110/44 10/20/18 18:00 86/44 10/20/18 18:00 100 23 110/44 (66) 99 10/20/18 17:45 98 24 85/38 (54) 97 10/20/18 17:43 78/42 10/20/18 17:30 93 22 75/35 (48) 100 10/20/18 17:15 92 25 82/33 (49) 97 10/20/18 17:08 93 25 40 10/20/18 17:00 90 24 82/36 (51) 98 10/20/18 16:45 110 22 100/46 (64) 100 10/20/18 16:30 100 22 56/28 (37) 100 10/20/18 16:23 Endotracheal Tube 40.0 10/20/18 16:15 110 22 81/46 (58) 100 10/20/18 16:00 40 10/20/18 16:00 Mechanical Ventilator Room Air 10/20/18 16:00 90 10/20/18 16:00 98/56 10/20/18 16:00 98.5 95 22 77/45 (56) 100 10/20/18 15:45 94 25 112/44 (66) 100 10/20/18 15:30 90 21 98/55 (69) 100 10/20/18 15:15 88 22 107/65 (79) 100 10/20/18 15:00 86 22 109/46 (67) 100 10/20/18 14:50 87 25 40 10/20/18 14:45 84 22 110/84 (93) 98 10/20/18 14:30 84 23 108/42 (64) 96 10/20/18 14:15 84 23 107/47 (67) 98 10/20/18 14:07 110/84 10/20/18 14:00 74/35 10/20/18 14:00 78 25 74/35 (48) 94 10/20/18 13:45 83 24 77/45 (56) 97 10/20/18 13:30 80 22 105/44 (64) 98 10/20/18 13:24 83 27 40 10/20/18 13:24 83 27 99 Mechanical Ventilator 40 10/20/18 13:15 83 22 110/84 (93) 98 10/20/18 13:14 83 20 99 Mechanical Ventilator 35 10/20/18 13:00 83 22 105/43 (63) 98 10/20/18 12:45 85 24 91/41 (58) 98 10/20/18 12:30 93 24 91/44 (60) 98 10/20/18 12:15 93 22 110/84 (93) 98 10/20/18 12:00 40 10/20/18 12:00 93 10/20/18 12:00 98.6 93 24 101/53 (69) 98 10/20/18 12:00 Mechanical Ventilator Room Air 10/20/18 11:45 92 24 108/54 (72) 98 10/20/18 11:30 93 24 107/55 (72) 98 10/20/18 11:15 92 24 98/87 (91) 98 10/20/18 11:00 113/48 10/20/18 11:00 93 22 117/47 (70) 98 10/20/18 11:00 91 30 40 10/20/18 10:45 92 23 113/48 (69) 96 10/20/18 10:30 89 24 115/78 (90) 96 10/20/18 10:15 89 24 106/60 (75) 98 10/20/18 10:00 84 22 96/49 (65) 97 10/20/18 10:00 96/49 10/20/18 09:45 85 24 108/45 (66) 98 10/20/18 09:30 84 24 109/41 (63) 98 10/20/18 09:15 84 24 109/41 (63) 98 10/20/18 09:09 105/41 10/20/18 09:00 83 22 98/42 (60) 97 10/20/18 09:00 98/42 10/20/18 08:45 82 24 109/39 (62) 98 10/20/18 08:40 85 25 35 10/20/18 08:30 86 24 94/42 (59) 96 10/20/18 08:15 85 20 100/37 (58) 98 10/20/18 08:00 35 10/20/18 08:00 98.3 86 20 101/46 (64) 98 10/20/18 08:00 101/46 10/20/18 08:00 Mechanical Ventilator Room Air 10/20/18 08:00 87 10/20/18 07:45 86 22 105/41 (62) 95 10/20/18 07:30 87 24 102/73 (83) 93 10/20/18 07:00 83 27 97 Mechanical Ventilator 35 10/20/18 07:00 83 22 94/43 (60) 93 10/20/18 07:00 84/50 10/20/18 07:00 86 23 35 10/20/18 06:49 83 25 96 Mechanical Ventilator 35 10/20/18 06:30 87 24 109/39 (62) 98 10/20/18 06:15 88 22 111/40 (63) 98 10/20/18 06:00 87 20 105/47 (66) 98 10/20/18 05:45 88 22 103/42 (62) 98 10/20/18 05:30 87 20 107/38 (61) 98 10/20/18 05:21 90 23 35 10/20/18 05:15 88 21 100/39 (59) 98 10/20/18 05:00 90 23 106/41 (62) 98 10/20/18 04:45 87 20 109/50 (69) 99 10/20/18 04:30 87 19 103/40 (61) 98 10/20/18 04:15 87 18 108/42 (64) 98 10/20/18 04:00 Bi-pap Room Air 10/20/18 04:00 35 10/20/18 04:00 87 10/20/18 04:00 97.6 87 19 114/45 (68) 98 10/20/18 03:45 87 18 102/57 (72) 98 10/20/18 03:30 87 18 106/44 (64) 98 10/20/18 03:15 88 18 10/40 (30) 98 10/20/18 03:07 89 25 35 10/20/18 03:00 88 20 105/41 (62) 98 10/20/18 02:45 90 15 109/39 (62) 98 10/20/18 02:30 90 15 117/39 (65) 98 10/20/18 02:00 90 18 109/44 (65) 98 10/20/18 01:45 88 16 107/42 (63) 99 10/20/18 01:44 99/37 10/20/18 01:30 87 17 99/47 (64) 99 10/20/18 01:13 85 27 100 Mechanical Ventilator 35 10/20/18 01:07 88 27 99 Mechanical Ventilator 35 10/20/18 01:04 88 27 35 10/20/18 01:00 89 20 102/43 (62) 99 10/20/18 00:30 91 14 124/41 (68) 97 10/20/18 00:00 91 10/20/18 00:00 Bi-pap Room Air 10/20/18 00:00 97.8 92 16 103/42 (62) 100 10/20/18 00:00 35 10/19/18 23:15 93 20 103/74 (84) 100 10/19/18 23:14 81 27 35 10/19/18 23:00 93 20 108/76 (87) 100 10/19/18 22:45 91 20 113/78 (90) 100 10/19/18 22:30 92 20 111/72 (85) 100 10/19/18 22:15 93 20 114/80 (91) 100 10/19/18 22:00 84 18 104/36 (58) 100 10/19/18 21:45 83 16 108/39 (62) 100 10/19/18 21:33 82 28 35 10/19/18 21:30 83 15 107/41 (63) 100 10/19/18 21:15 83 20 106/43 (64) 100 10/19/18 21:06 110/40 10/19/18 21:00 84 17 105/37 (59) 100 10/19/18 20:53 109/41 10/19/18 20:45 87 17 110/40 (63) 99 10/19/18 20:30 89 17 127/37 (67) 98 10/19/18 20:15 84 19 113/37 (62) 100 General Appearance: no apparent distress, on vent Neck: supple Cardiovascular: normal rate, regular rhythm Respiratory/Chest: lungs clear - ant Abdomen: normal bowel sounds, non tender, soft Extremities: moderate edema Intake and Output 10/19/18 10/20/18 18:59 06:59 Intake Total 806.25 ml 1101.991 ml Balance 806.25 ml 1101.991 ml Intake Oral 0 ml 0 ml IV Total 806.25 ml 1101.991 ml # Bowel Movements 1 1 Laboratory Tests Test 10/19/18 20:55 10/19/18 23:00 10/20/18 06:00 10/20/18 11:05 Vitamin B12 Level > 2000 PG/ML (193-986) H Thyroid Stimulating Hormone (TSH) 0.441 uiU/mL (0.358-3.740) Activated Partial Thromboplast Time 63 SEC (23-33) H 118 SEC (23-33) H Ammonia 34 umol/L (11-32) H White Blood Count 20.9 K/UL (4.8-10.8) H Red Blood Count 3.58 M/UL (4.70-6.10) L Hemoglobin 9.6 G/DL (14.2-18.0) #L Hematocrit 30.4 % (42.0-52.0) L Mean Corpuscular Volume 85 FL (80-99) Mean Corpuscular Hemoglobin 26.8 PG (27.0-31.0) L Mean Corpuscular Hemoglobin Concent 31.5 G/DL (32.0-36.0) L Red Cell Distribution Width 19.5 % (11.6-14.8) H Platelet Count 166 K/UL (150-450) Mean Platelet Volume 6.5 FL (6.5-10.1) Neutrophils (%) (Auto) % (45.0-75.0) Lymphocytes (%) (Auto) % (20.0-45.0) Monocytes (%) (Auto) % (1.0-10.0) Eosinophils (%) (Auto) % (0.0-3.0) Basophils (%) (Auto) % (0.0-2.0) Differential Total Cells Counted 100 Neutrophils % (Manual) 90 % (45-75) H Lymphocytes % (Manual) 1 % (20-45) L Monocytes % (Manual) 7 % (1-10) Eosinophils % (Manual) 0 % (0-3) Basophils % (Manual) 0 % (0-2) Band Neutrophils 2 % (0-8) Nucleated Red Blood Cells 3 /100 WBC Platelet Estimate Adequate Platelet Morphology Normal Polychromasia 1+ Hypochromasia 1+ Anisocytosis 2+ Sodium Level 125 MMOL/L (136-145) L Potassium Level 5.4 MMOL/L (3.5-5.1) H Chloride Level 85 MMOL/L (98-107) L Carbon Dioxide Level 17 MMOL/L (21-32) L Anion Gap 23 mmol/L (5-15) H Blood Urea Nitrogen 91 mg/dL (7-18) H Creatinine 5.7 MG/DL (0.55-1.30) H Estimat Glomerular Filtration Rate mL/min (>60) Glucose Level 184 MG/DL (74-106) #H Calcium Level 6.1 MG/DL (8.5-10.1) L Total Bilirubin 3.1 MG/DL (0.2-1.0) H Direct Bilirubin 2.4 MG/DL (0.0-0.3) H Aspartate Amino Transf (AST/SGOT) 1765 U/L (15-37) H Alanine Aminotransferase (ALT/SGPT) 891 U/L (12-78) H Alkaline Phosphatase 93 U/L (46-116) Total Protein 6.2 G/DL (6.4-8.2) L Albumin 2.5 G/DL (3.4-5.0) L Arterial Blood pH 7.339 (7.350-7.450) Arterial Blood Partial Pressure CO2 29.7 mmHg (35.0-45.0) L Arterial Blood Partial Pressure O2 104.4 mmHg (75.0-100.0) H Arterial Blood HCO3 15.6 mmol/L (22.0-26.0) *L Arterial Blood Oxygen Saturation 95.9 % (95-100) Arterial Blood Base Excess -9.0 (-2-2) L Tee Test Positive Test 10/20/18 13:50 Activated Partial Thromboplast Time 73 SEC (23-33) H Dg Key MD Oct 20, 2018 20:09
[2018-10-20] MEDS: Dyna-Hex 2% Top Sol 2oz TOPIC SCH (20:44)
[2018-10-20] MEDS: Latanoprost 0.005% Opth 2.5ml Soln BOTH EYES SCH (20:44)
[2018-10-20] MEDS: Atorvastatin 20mg tab ORAL SCH (20:45)
--- NOTE | 2018-10-20 20:59 | Infectious Diseases Prog Note ---
Assessment/Plan Assessment/Plan Full consult to follow: A) 1) sepsis, shock, leukocytosis, pna 2) respiratory failure, vent, fred, HD 3) pmh noted 4) allergies - pcn P) 1) meropenem, polymyxin, vancomycin 2) f/u on cultures, labs and chest x-ray 3) continue treatment per primary team and consultants 4) condition critical 5) will follow Subjective Allergies: Coded Allergies: PENICILLINS (Verified Allergy, Unknown, 10/09/18) Objective Vital Signs Last 24 Hour Vital Signs Date Time Temp Pulse Resp B/P (MAP) Pulse Ox O2 Delivery O2 Flow Rate FiO2 10/20/18 20:50 96 21 40 10/20/18 19:39 95 24 100 Mechanical Ventilator 40 10/20/18 19:29 97 24 98 Mechanical Ventilator 40 10/20/18 19:28 97 24 40 10/20/18 19:15 97 20 111/56 (74) 98 10/20/18 19:00 111/56 10/20/18 19:00 111/56 10/20/18 18:45 113/51 10/20/18 18:45 99 20 113/51 (71) 98 10/20/18 18:30 99 24 101/46 (64) 97 10/20/18 18:15 102 20 109/57 (74) 100 10/20/18 18:06 110/44 10/20/18 18:00 86/44 10/20/18 18:00 100 23 110/44 (66) 99 10/20/18 17:45 98 24 85/38 (54) 97 10/20/18 17:43 78/42 10/20/18 17:30 93 22 75/35 (48) 100 10/20/18 17:15 92 25 82/33 (49) 97 10/20/18 17:08 93 25 40 10/20/18 17:00 90 24 82/36 (51) 98 10/20/18 16:45 110 22 100/46 (64) 100 10/20/18 16:30 100 22 56/28 (37) 100 10/20/18 16:23 Endotracheal Tube 40.0 10/20/18 16:15 110 22 81/46 (58) 100 10/20/18 16:00 40 10/20/18 16:00 Mechanical Ventilator Room Air 10/20/18 16:00 90 10/20/18 16:00 98/56 10/20/18 16:00 98.5 95 22 77/45 (56) 100 10/20/18 15:45 94 25 112/44 (66) 100 10/20/18 15:30 90 21 98/55 (69) 100 10/20/18 15:15 88 22 107/65 (79) 100 10/20/18 15:00 86 22 109/46 (67) 100 10/20/18 14:50 87 25 40 10/20/18 14:45 84 22 110/84 (93) 98 10/20/18 14:30 84 23 108/42 (64) 96 10/20/18 14:15 84 23 107/47 (67) 98 10/20/18 14:07 110/84 10/20/18 14:00 74/35 10/20/18 14:00 78 25 74/35 (48) 94 10/20/18 13:45 83 24 77/45 (56) 97 10/20/18 13:30 80 22 105/44 (64) 98 10/20/18 13:24 83 27 40 10/20/18 13:24 83 27 99 Mechanical Ventilator 40 10/20/18 13:15 83 22 110/84 (93) 98 10/20/18 13:14 83 20 99 Mechanical Ventilator 35 10/20/18 13:00 83 22 105/43 (63) 98 10/20/18 12:45 85 24 91/41 (58) 98 10/20/18 12:30 93 24 91/44 (60) 98 10/20/18 12:15 93 22 110/84 (93) 98 10/20/18 12:00 40 10/20/18 12:00 93 10/20/18 12:00 98.6 93 24 101/53 (69) 98 10/20/18 12:00 Mechanical Ventilator Room Air 10/20/18 11:45 92 24 108/54 (72) 98 10/20/18 11:30 93 24 107/55 (72) 98 10/20/18 11:15 92 24 98/87 (91) 98 10/20/18 11:00 113/48 10/20/18 11:00 93 22 117/47 (70) 98 10/20/18 11:00 91 30 40 2/13/19 10:45 92 23 113/48 (69) 96 10/20/18 10:30 89 24 115/78 (90) 96 10/20/18 10:15 89 24 106/60 (75) 98 10/20/18 10:00 84 22 96/49 (65) 97 10/20/18 10:00 96/49 10/20/18 09:45 85 24 108/45 (66) 98 10/20/18 09:30 84 24 109/41 (63) 98 10/20/18 09:15 84 24 109/41 (63) 98 10/20/18 09:09 105/41 10/20/18 09:00 83 22 98/42 (60) 97 10/20/18 09:00 98/42 10/20/18 08:45 82 24 109/39 (62) 98 10/20/18 08:40 85 25 35 10/20/18 08:30 86 24 94/42 (59) 96 10/20/18 08:15 85 20 100/37 (58) 98 10/20/18 08:00 35 10/20/18 08:00 98.3 86 20 101/46 (64) 98 10/20/18 08:00 101/46 10/20/18 08:00 Mechanical Ventilator Room Air 10/20/18 08:00 87 10/20/18 07:45 86 22 105/41 (62) 95 10/20/18 07:30 87 24 102/73 (83) 93 10/20/18 07:00 83 27 97 Mechanical Ventilator 35 10/20/18 07:00 83 22 94/43 (60) 93 10/20/18 07:00 84/50 10/20/18 07:00 86 23 35 10/20/18 06:49 83 25 96 Mechanical Ventilator 35 10/20/18 06:30 87 24 109/39 (62) 98 10/20/18 06:15 88 22 111/40 (63) 98 10/20/18 06:00 87 20 105/47 (66) 98 10/20/18 05:45 88 22 103/42 (62) 98 10/20/18 05:30 87 20 107/38 (61) 98 10/20/18 05:21 90 23 35 10/20/18 05:15 88 21 100/39 (59) 98 10/20/18 05:00 90 23 106/41 (62) 98 10/20/18 04:45 87 20 109/50 (69) 99 10/20/18 04:30 87 19 103/40 (61) 98 10/20/18 04:15 87 18 108/42 (64) 98 10/20/18 04:00 Bi-pap Room Air 10/20/18 04:00 35 10/20/18 04:00 87 10/20/18 04:00 97.6 87 19 114/45 (68) 98 10/20/18 03:45 87 18 102/57 (72) 98 10/20/18 03:30 87 18 106/44 (64) 98 10/20/18 03:15 88 18 10/40 (30) 98 10/20/18 03:07 89 25 35 10/20/18 03:00 88 20 105/41 (62) 98 10/20/18 02:45 90 15 109/39 (62) 98 10/20/18 02:30 90 15 117/39 (65) 98 10/20/18 02:00 90 18 109/44 (65) 98 10/20/18 01:45 88 16 107/42 (63) 99 10/20/18 01:44 99/37 10/20/18 01:30 87 17 99/47 (64) 99 10/20/18 01:13 85 27 100 Mechanical Ventilator 35 10/20/18 01:07 88 27 99 Mechanical Ventilator 35 10/20/18 01:04 88 27 35 10/20/18 01:00 89 20 102/43 (62) 99 10/20/18 00:30 91 14 124/41 (68) 97 10/20/18 00:00 91 10/20/18 00:00 Bi-pap Room Air 10/20/18 00:00 97.8 92 16 103/42 (62) 100 10/20/18 00:00 35 10/19/18 23:15 93 20 103/74 (84) 100 10/19/18 23:14 81 27 35 10/19/18 23:00 93 20 108/76 (87) 100 10/19/18 22:45 91 20 113/78 (90) 100 10/19/18 22:30 92 20 111/72 (85) 100 10/19/18 22:15 93 20 114/80 (91) 100 10/19/18 22:00 84 18 104/36 (58) 100 10/19/18 21:45 83 16 108/39 (62) 100 10/19/18 21:33 82 28 35 10/19/18 21:30 83 15 107/41 (63) 100 10/19/18 21:15 83 20 106/43 (64) 100 10/19/18 21:06 110/40 10/19/18 21:00 84 17 105/37 (59) 100 Height (Feet): 5 Height (Inches): 2.00 Weight (Pounds): 148 Laboratory Tests Test 10/19/18 23:00 10/20/18 06:00 10/20/18 11:05 10/20/18 13:50 Activated Partial Thromboplast Time 63 SEC (23-33) H 118 SEC (23-33) H 73 SEC (23-33) H Ammonia 34 umol/L (11-32) H White Blood Count 20.9 K/UL (4.8-10.8) H Red Blood Count 3.58 M/UL (4.70-6.10) L Hemoglobin 9.6 G/DL (14.2-18.0) #L Hematocrit 30.4 % (42.0-52.0) L Mean Corpuscular Volume 85 FL (80-99) Mean Corpuscular Hemoglobin 26.8 PG (27.0-31.0) L Mean Corpuscular Hemoglobin Concent 31.5 G/DL (32.0-36.0) L Red Cell Distribution Width 19.5 % (11.6-14.8) H Platelet Count 166 K/UL (150-450) Mean Platelet Volume 6.5 FL (6.5-10.1) Neutrophils (%) (Auto) % (45.0-75.0) Lymphocytes (%) (Auto) % (20.0-45.0) Monocytes (%) (Auto) % (1.0-10.0) Eosinophils (%) (Auto) % (0.0-3.0) Basophils (%) (Auto) % (0.0-2.0) Differential Total Cells Counted 100 Neutrophils % (Manual) 90 % (45-75) H Lymphocytes % (Manual) 1 % (20-45) L Monocytes % (Manual) 7 % (1-10) Eosinophils % (Manual) 0 % (0-3) Basophils % (Manual) 0 % (0-2) Band Neutrophils 2 % (0-8) Nucleated Red Blood Cells 3 /100 WBC Platelet Estimate Adequate Platelet Morphology Normal Polychromasia 1+ Hypochromasia 1+ Anisocytosis 2+ Sodium Level 125 MMOL/L (136-145) L Potassium Level 5.4 MMOL/L (3.5-5.1) H Chloride Level 85 MMOL/L (98-107) L Carbon Dioxide Level 17 MMOL/L (21-32) L Anion Gap 23 mmol/L (5-15) H Blood Urea Nitrogen 91 mg/dL (7-18) H Creatinine 5.7 MG/DL (0.55-1.30) H Estimat Glomerular Filtration Rate mL/min (>60) Glucose Level 184 MG/DL (74-106) #H Calcium Level 6.1 MG/DL (8.5-10.1) L Total Bilirubin 3.1 MG/DL (0.2-1.0) H Direct Bilirubin 2.4 MG/DL (0.0-0.3) H Aspartate Amino Transf (AST/SGOT) 1765 U/L (15-37) H Alanine Aminotransferase (ALT/SGPT) 891 U/L (12-78) H Alkaline Phosphatase 93 U/L (46-116) Total Protein 6.2 G/DL (6.4-8.2) L Albumin 2.5 G/DL (3.4-5.0) L Arterial Blood pH 7.339 (7.350-7.450) Arterial Blood Partial Pressure CO2 29.7 mmHg (35.0-45.0) L Arterial Blood Partial Pressure O2 104.4 mmHg (75.0-100.0) H Arterial Blood HCO3 15.6 mmol/L (22.0-26.0) *L Arterial Blood Oxygen Saturation 95.9 % (95-100) Arterial Blood Base Excess -9.0 (-2-2) L Tee Test Positive Current Medications Medications (Trade) Dose Ordered Sig/Ashely Route PRN Reason Start Time Stop Time Status Last Admin Dose Admin Acetaminophen (Tylenol) 650 mg Q6H PRN ORAL Mild Pain/Temp > 100.5 2/11/19 16:30 11/08/18 04:23 Albumin Human 100 ml @ 200 mls/hr PRN PRN IV sbp<90 during hd 10/20/18 08:30 10/20/18 23:59 Albuterol/ Ipratropium (Albuterol/ Ipratropium) 3 ml Q4H PRN HHN Shortness of Breath 10/18/18 17:30 10/23/18 13:29 Albuterol/ Ipratropium (Albuterol/ Ipratropium) 3 ml Q6HRT HHN 10/18/18 19:00 10/23/18 18:59 10/20/18 19:29 Aspirin (Ecotrin) 81 mg DAILY ORAL 10/19/18 09:00 11/09/18 08:59 Atorvastatin Calcium (Lipitor) 40 mg BEDTIME ORAL 10/18/18 21:00 11/09/18 20:59 10/20/18 20:45 Calcium Carbonate (Tums) 500 mg BID GT 10/20/18 18:00 11/09/18 08:59 10/20/18 17:19 Chlorhexidine Gluconate (Anai-Hex 2%) 1 applic DAILY@2000 TOPIC 10/18/18 20:00 11/12/18 19:59 10/20/18 20:44 Dextrose 1,000 ml @ 30 mls/hr Q24H IV 10/19/18 08:15 11/18/18 08:14 10/20/18 07:50 Dextrose (Dextrose 50%) 25 ml Q30M PRN IV Hypoglycemia 10/18/18 16:45 11/16/18 08:44 Dextrose (Dextrose 50%) 50 ml Q30M PRN IV Hypoglycemia 10/18/18 16:45 11/16/18 08:44 10/19/18 06:26 Dobutamine HCl 250 ml @ 10.05 mls/ hr Q24H IV 10/19/18 11:40 11/18/18 11:39 10/19/18 21:06 Docusate Sodium (Colace) 100 mg TWICE A DAY GT 10/20/18 18:00 11/09/18 08:59 10/20/18 17:19 Dopamine HCl/ Dextrose 250 ml @ 0 mls/hr Q24H IV 10/19/18 12:45 11/18/18 12:44 10/20/18 17:43 Haloperidol Lactate (Haldol) 5 mg Q6H PRN IM Agitation 10/18/18 17:00 11/17/18 16:59 Heparin Sodium (Porcine) (Heparin Sod 1000 units/ml 10ml) 2,000 unit ONCE PRN IV DIALYSIS 10/19/18 15:45 10/21/18 15:44 Heparin Sodium/ Dextrose 500 ml @ 4.028 mls/ hr ADJUST PER PROTOCOL IV 10/20/18 07:45 11/19/18 07:44 10/20/18 07:49 Insulin Aspart (NovoLOG) BEFORE MEALS AND HS SUBQ 10/18/18 16:30 11/16/18 11:29 Latanoprost (Xalatan) 1 drop BEDTIME BOTH EYES 10/18/18 21:00 11/10/18 20:59 10/20/18 20:44 Meropenem 500 mg/ Sodium Chloride 50 ml @ 100 mls/hr Q24HRS IVPB 10/20/18 00:00 10/25/18 00:00 10/20/18 00:38 Norepinephrine Bitartrate 16 mg/ Dextrose 500 ml @ 0 mls/hr Q24H IV 10/20/18 18:00 11/19/18 17:59 10/20/18 18:06 Octreotide Acetate (SandoSTATIN) 50 mcg Q12H SUBQ 10/20/18 12:00 11/18/18 07:59 10/20/18 12:23 Ondansetron HCl (Zofran) 4 mg Q8H PRN IVP Nausea & Vomiting 10/18/18 17:00 11/17/18 16:59 Pantoprazole (Protonix) 40 mg ACBREAKFAST ORAL 10/19/18 06:30 11/09/18 08:59 10/19/18 06:13 Polymyxin B Sulfate [id number] units/Dextrose 250 ml @ 250 mls/hr EVERY 12 HOURS IVPB 10/20/18 09:00 10/27/18 08:59 10/20/18 20:44 Promethazine HCl (Phenergan Plain) 6.25 mg Q6H PRN ORAL For Cough 10/18/18 16:45 11/10/18 04:32 Vancomycin HCl (Vanco rx to dose) 1 ea DAILY PRN MISC Per rx protocol 10/19/18 23:30 11/18/18 23:29 Roseline Figueroa MD Oct 20, 2018 20:59
--- NOTE | 2018-10-20 21:00 | Electroencephalogram ---
DATE OF PROCEDURE: 10/19/2018 ELECTROENCEPHALOGRAM REPORT REQUESTING PHYSICIAN: Dg Key M.D. READING PHYSICIAN: Abram Johnson M.D. PROCEDURE PERFORMED: Electroencephalogram. HISTORY: This EEG was performed on an 83-year-old gentleman with a history of multiple medical problems including hypertension, diabetes mellitus, coronary artery disease, congestive heart failure, and chronic anemia, who was hospitalized for multiple metabolic abnormalities associated with an altered mental state. The patient was then noted to have significant hypoglycemia and later on was also noted to have a right paresis. The purpose of this EEG was to evaluate the patient for the degree and type of cerebral dysfunction. TECHNICAL NOTE: This EEG was performed on a [employer] [facility] with electrodes placed on the scalp according to the International 10-20 system. Pdwpa-mv-uxviv and oahty-fp-kxv montages were used. The EEG was technically satisfactory and was performed while the patient was in a poorly responsive state. OBSERVATIONS: In the poorly responsive state, the background activity consisted of 2-2.5 Hz delta and 4-4.5 Hz theta activity. Triphasic waveforms with an tunmrdmc-wc-oamnluxtv gradient were seen throughout the tracing. No definite focal abnormalities or epileptiform discharges were noted. IMPRESSION: This is an abnormal EEG characterized by: 1. Slowing of the background in the delta and theta range. 2. The presence of triphasic waveforms with an anterior-to- posterior gradient seen throughout the tracing. COMMENT: This study is consistent with an encephalopathy of a moderately severe degree most probably with a metabolic component as evidenced by the triphasic waveforms. Abram Johnson M.D., M.S.P.H. DR: Nila JOB#: [id number] MTDPortillo
--- NOTE | 2018-10-20 22:16 | NUR ---
NURSE NOTES: HS care rendered.Pos. chg.Backrub with lotion.Neuro status same.Suctioned.Due meds admin.Son at BS.OGT Feeding Onur.Rate inc.to 40cc/hr.FSBS-138.
[2018-10-21] VITALS (67 sets, daily range): BP systolic 91–122; BP diastolic 36–87
[2018-10-21] MEDS: SandoSTATIN 50mcg Inj SUBQ SCH ×3 (00:09→23:50)
--- NOTE | 2018-10-21 00:10 | NUR ---
NURSE NOTES: Suctioned,Pos. chg.Neuro status same.See V/S.Levo.drip <20mcg/min.Scope pattern same.Tolerating OGT Feeding rate inc.to goal.
[2018-10-21] MEDS: DOBUTamine 250mg/250ml Premix 250 ML IV SCH (00:14)
[2018-10-21] MEDS: Albuterol/Ipratropium 3ml neb HHN SCH ×4 (01:13→19:16)
--- NOTE | 2018-10-21 02:00 | NUR ---
NURSE NOTES: Pos. chg.suctioned.P.Ox-100%.No distress.
--- NOTE | 2018-10-21 04:00 | NUR ---
NURSE NOTES: joan Arriaza chg.Blood drawn for cbc/cmp and PTT spec. to lab.Onur.OGT Feeding.See I/O.Cont.on LEVO.(pressor) at max.dose.See V/S Scope Rhythm same.
[2018-10-21] MEDS: Heparin 25,000u/D5W 500ml 500 ML IV SCH (04:09)
[2018-10-21] MEDS: Norepinephrine Bitartrate 16 MG in D5W 500ml 484 ML IV SCH ×2 (04:15→14:16)
[2018-10-21 04:27] LABS: HEMATOCRIT 33.1 % (42.0-52.0); HEMOGLOBIN 10.6 G/DL (14.2-18.0); MEAN CORPUSCULAR VOLUME 85 FL (80-99); PLATELET COUNT 93 K/UL (150-450); RED CELL DISTRIBUTION WIDTH 19.3 % (11.6-14.8)
[2018-10-21 04:42] LABS: WHITE BLOOD COUNT 24.2 K/UL (4.8-10.8)
[2018-10-21 05:23] LABS: ANION GAP 18 mmol/L (5-15); BLOOD UREA NITROGEN 81 mg/dL (7-18); CALCIUM 6.6 MG/DL (8.5-10.1); CARBON DIOXIDE 20 MMOL/L (21-32); CHLORIDE 83 MMOL/L (98-107); CREATININE 5.5 MG/DL (0.55-1.30); SODIUM 121 MMOL/L (136-145)
--- NOTE | 2018-10-21 06:05 | General Progress Note ---
Assessment/Plan Problem List: (1) CKD (chronic kidney disease) ICD Codes: N18.9 - Chronic kidney disease, unspecified SNOMED: 114276808 (2) Hypoglycemia ICD Codes: E16.2 - Hypoglycemia, unspecified SNOMED: 254944873 (3) Altered mental status ICD Codes: R41.82 - Altered mental status, unspecified SNOMED: 537729606 Assessment/Plan hypoglycemia improved and seems resolved DC Octreotide 50 mg continue glucose monitoring hypoglycemia protocol in order Subjective ROS Limited/Unobtainable: Yes Allergies: Coded Allergies: PENICILLINS (Verified Allergy, Unknown, 10/09/18) Subjective events noted intubated in ICU on pressors on TF at 40 mL/hour no hypoglycemia HD scheduled for today Item Value Date Time Glucose Level 123 MG/DL H 10/21/18 0400 Bedside Blood Glucose 138 mg/dl H 10/20/18 2100 Bedside Blood Glucose 127 mg/dl H 10/20/18 1630 Bedside Blood Glucose 152 mg/dl H 10/20/18 1130 Bedside Blood Glucose 177 mg/dl H 10/20/18 0624 Objective Last 24 Hour Vital Signs Date Time Temp Pulse Resp B/P (MAP) Pulse Ox O2 Delivery O2 Flow Rate FiO2 10/21/18 05:05 88 26 40 10/21/18 04:15 100/87 10/21/18 03:00 97 26 40 10/21/18 01:23 91 20 100 Mechanical Ventilator 40 10/21/18 01:13 96 26 100 Mechanical Ventilator 40 10/21/18 01:13 96 26 40 10/21/18 00:30 93 21 105/53 (70) 100 10/21/18 00:15 94 20 107/55 (72) 100 10/21/18 00:14 104/53 10/21/18 00:00 Mechanical Ventilator Room Air 10/21/18 00:00 98.3 93 20 110/50 (70) 100 10/20/18 23:45 93 20 104/53 (70) 100 10/20/18 23:30 93 20 103/50 (67) 100 10/20/18 23:00 90 20 101/47 (65) 100 10/20/18 22:53 91 25 40 10/20/18 22:45 90 21 106/47 (66) 100 10/20/18 22:30 90 21 104/61 (75) 100 10/20/18 22:00 99 22 112/50 (70) 100 10/20/18 21:45 100 23 118/49 (72) 99 10/20/18 21:30 100 24 116/45 (68) 99 10/20/18 21:15 100 23 104/50 (68) 99 10/20/18 21:00 100 24 109/47 (67) 99 10/20/18 20:50 96 21 40 10/20/18 20:45 96 23 105/49 (67) 99 10/20/18 20:30 96 24 104/42 (62) 98 10/20/18 20:15 95 22 106/52 (70) 99 10/20/18 20:00 40 10/20/18 20:00 97 10/20/18 20:00 97 22 115/46 (69) 99 10/20/18 20:00 Mechanical Ventilator Room Air 10/20/18 19:45 96 21 105/47 (66) 100 10/20/18 19:39 95 24 100 Mechanical Ventilator 40 10/20/18 19:30 96 20 111/48 (69) 100 10/20/18 19:29 97 24 98 Mechanical Ventilator 40 10/20/18 19:28 97 24 40 10/20/18 19:15 97 20 111/56 (74) 98 10/20/18 19:00 111/56 10/20/18 19:00 111/56 10/20/18 18:45 113/51 10/20/18 18:45 99 20 113/51 (71) 98 10/20/18 18:30 99 24 101/46 (64) 97 10/20/18 18:15 102 20 109/57 (74) 100 10/20/18 18:06 110/44 10/20/18 18:00 86/44 10/20/18 18:00 100 23 110/44 (66) 99 10/20/18 17:45 98 24 85/38 (54) 97 10/20/18 17:43 78/42 10/20/18 17:30 93 22 75/35 (48) 100 10/20/18 17:15 92 25 82/33 (49) 97 10/20/18 17:08 93 25 40 10/20/18 17:00 90 24 82/36 (51) 98 10/20/18 16:45 110 22 100/46 (64) 100 10/20/18 16:30 100 22 56/28 (37) 100 10/20/18 16:23 Endotracheal Tube 40.0 10/20/18 16:15 110 22 81/46 (58) 100 10/20/18 16:00 40 10/20/18 16:00 Mechanical Ventilator Room Air 10/20/18 16:00 90 10/20/18 16:00 98/56 10/20/18 16:00 98.5 95 22 77/45 (56) 100 10/20/18 15:45 94 25 112/44 (66) 100 10/20/18 15:30 90 21 98/55 (69) 100 10/20/18 15:15 88 22 107/65 (79) 100 10/20/18 15:00 86 22 109/46 (67) 100 10/20/18 14:50 87 25 40 10/20/18 14:45 84 22 110/84 (93) 98 10/20/18 14:30 84 23 108/42 (64) 96 10/20/18 14:15 84 23 107/47 (67) 98 10/20/18 14:07 110/84 10/20/18 14:00 74/35 10/20/18 14:00 78 25 74/35 (48) 94 10/20/18 13:45 83 24 77/45 (56) 97 10/20/18 13:30 80 22 105/44 (64) 98 10/20/18 13:24 83 27 40 10/20/18 13:24 83 27 99 Mechanical Ventilator 40 10/20/18 13:15 83 22 110/84 (93) 98 10/20/18 13:14 83 20 99 Mechanical Ventilator 35 10/20/18 13:00 83 22 105/43 (63) 98 10/20/18 12:45 85 24 91/41 (58) 98 10/20/18 12:30 93 24 91/44 (60) 98 10/20/18 12:15 93 22 110/84 (93) 98 10/20/18 12:00 40 10/20/18 12:00 93 10/20/18 12:00 98.6 93 24 101/53 (69) 98 10/20/18 12:00 Mechanical Ventilator Room Air 10/20/18 11:45 92 24 108/54 (72) 98 10/20/18 11:30 93 24 107/55 (72) 98 10/20/18 11:15 92 24 98/87 (91) 98 10/20/18 11:00 113/48 10/20/18 11:00 93 22 117/47 (70) 98 10/20/18 11:00 91 30 40 10/20/18 10:45 92 23 113/48 (69) 96 10/20/18 10:30 89 24 115/78 (90) 96 10/20/18 10:15 89 24 106/60 (75) 98 10/20/18 10:00 84 22 96/49 (65) 97 10/20/18 10:00 96/49 10/20/18 09:45 85 24 108/45 (66) 98 10/20/18 09:30 84 24 109/41 (63) 98 10/20/18 09:15 84 24 109/41 (63) 98 10/20/18 09:09 105/41 10/20/18 09:00 83 22 98/42 (60) 97 10/20/18 09:00 98/42 10/20/18 08:45 82 24 109/39 (62) 98 10/20/18 08:40 85 25 35 10/20/18 08:30 86 24 94/42 (59) 96 10/20/18 08:15 85 20 100/37 (58) 98 10/20/18 08:00 35 10/20/18 08:00 98.3 86 20 101/46 (64) 98 10/20/18 08:00 101/46 10/20/18 08:00 Mechanical Ventilator Room Air 10/20/18 08:00 87 10/20/18 07:45 86 22 105/41 (62) 95 10/20/18 07:30 87 24 102/73 (83) 93 10/20/18 07:00 83 27 97 Mechanical Ventilator 35 10/20/18 07:00 83 22 94/43 (60) 93 10/20/18 07:00 84/50 10/20/18 07:00 86 23 35 10/20/18 06:49 83 25 96 Mechanical Ventilator 35 10/20/18 06:45 87 22 104/48 (66) 98 10/20/18 06:30 87 24 109/39 (62) 98 10/20/18 06:15 88 22 111/40 (63) 98 Intake and Output 10/20/18 10/21/18 19:00 07:00 Intake Total 1239.118 ml 1202.178 ml Balance 1239.118 ml 1202.178 ml Intake Oral 0 ml Free Water 100 ml 80 ml IV Total 1079.118 ml 932.178 ml Tube Feeding 60 ml 190 ml Laboratory Tests 10/20/18 11:05: Arterial Blood pH 7.339L, Arterial Blood Partial Pressure CO2 29.7L, Arterial Blood Partial Pressure O2 104.4H, Arterial Blood HCO3 15.6*L, Arterial Blood Oxygen Saturation 95.9, Arterial Blood Base Excess -9.0L, Tee Test Positive 10/20/18 13:50: Activated Partial Thromboplast Time 73H 10/21/18 04:00: Activated Partial Thromboplast Time 67H, White Blood Count 24.2*H, Red Blood Count 3.90L, Hemoglobin 10.6L, Hematocrit 33.1L, Mean Corpuscular Volume 85, Mean Corpuscular Hemoglobin 27.2, Mean Corpuscular Hemoglobin Concent 32.0, Red Cell Distribution Width 19.3H, Platelet Count 93L, Mean Platelet Volume 7.7, Neutrophils (%) (Auto) , Lymphocytes (%) (Auto) , Monocytes (%) (Auto) , Eosinophils (%) (Auto) , Basophils (%) (Auto) , Neutrophils % (Manual) [Pending] , Lymphocytes % (Manual) [Pending], Platelet Estimate [Pending], Platelet Morphology [Pending], Sodium Level 121L, Potassium Level 5.0, Chloride Level 83L , Carbon Dioxide Level 20L, Anion Gap 18H, Blood Urea Nitrogen 81H, Creatinine 5.5H, Estimat Glomerular Filtration Rate , Glucose Level 123H, Calcium Level 6.6L Height (Feet): 5 Height (Inches): 2.00 Weight (Pounds): 148 General Appearance: severe distress Neck: normal alignment Cardiovascular: tachycardia Respiratory/Chest: decreased breath sounds Abdomen: normal bowel sounds Pelvis: normal external exam Edema: 1+ Arm (L), 1+ Arm (R), 1+ Leg (L), 1+ Leg (R), 1+ Pedal (L), 1+ Pedal ( R), 1+ Generalized Objective Current Medications Medications (Trade) Dose Ordered Sig/Ashely Route PRN Reason Start Time Stop Time Status Last Admin Dose Admin Acetaminophen (Tylenol) 650 mg Q6H PRN ORAL Mild Pain/Temp > 100.5 10/18/18 16:30 11/08/18 04:23 Albuterol/ Ipratropium (Albuterol/ Ipratropium) 3 ml Q4H PRN HHN Shortness of Breath 10/18/18 17:30 10/23/18 13:29 Albuterol/ Ipratropium (Albuterol/ Ipratropium) 3 ml Q6HRT HHN 10/18/18 19:00 10/23/18 18:59 10/21/18 01:13 Aspirin (Ecotrin) 81 mg DAILY ORAL 10/19/18 09:00 11/09/18 08:59 Atorvastatin Calcium (Lipitor) 40 mg BEDTIME ORAL 10/18/18 21:00 11/09/18 20:59 10/20/18 20:45 Calcium Carbonate (Tums) 500 mg BID GT 10/20/18 18:00 11/09/18 08:59 10/20/18 17:19 Chlorhexidine Gluconate (Anai-Hex 2%) 1 applic DAILY@2000 TOPIC 10/18/18 20:00 11/12/18 19:59 10/20/18 20:44 Dextrose 1,000 ml @ 30 mls/hr Q24H IV 10/19/18 08:15 11/18/18 08:14 10/20/18 07:50 Dextrose (Dextrose 50%) 25 ml Q30M PRN IV Hypoglycemia 10/18/18 16:45 11/16/18 08:44 Dextrose (Dextrose 50%) 50 ml Q30M PRN IV Hypoglycemia 10/18/18 16:45 11/16/18 08:44 10/19/18 06:26 Dobutamine HCl 250 ml @ 10.05 mls/ hr Q24H IV 10/19/18 11:40 11/18/18 11:39 10/21/18 00:14 Docusate Sodium (Colace) 100 mg TWICE A DAY GT 10/20/18 18:00 11/09/18 08:59 10/20/18 17:19 Dopamine HCl/ Dextrose 250 ml @ 0 mls/hr Q24H IV 10/19/18 12:45 11/18/18 12:44 10/20/18 17:43 Haloperidol Lactate (Haldol) 5 mg Q6H PRN IM Agitation 10/18/18 17:00 11/17/18 16:59 Heparin Sodium (Porcine) (Heparin Sod 1000 units/ml 10ml) 2,000 unit ONCE PRN IV DIALYSIS 10/19/18 15:45 10/21/18 15:44 Heparin Sodium/ Dextrose 500 ml @ 4.028 mls/ hr ADJUST PER PROTOCOL IV 10/20/18 07:45 11/19/18 07:44 10/21/18 04:09 Insulin Aspart (NovoLOG) BEFORE MEALS AND HS SUBQ 10/18/18 16:30 11/16/18 11:29 Latanoprost (Xalatan) 1 drop BEDTIME BOTH EYES 10/18/18 21:00 11/10/18 20:59 10/20/18 20:44 Meropenem 500 mg/ Sodium Chloride 50 ml @ 100 mls/hr Q24HRS IVPB 10/20/18 00:00 10/25/18 00:00 10/21/18 00:09 Norepinephrine Bitartrate 16 mg/ Dextrose 500 ml @ 0 mls/hr Q24H IV 10/20/18 18:00 11/19/18 17:59 10/21/18 04:15 Octreotide Acetate (SandoSTATIN) 50 mcg Q12H SUBQ 10/20/18 12:00 11/18/18 07:59 10/21/18 00:09 Ondansetron HCl (Zofran) 4 mg Q8H PRN IVP Nausea & Vomiting 10/18/18 17:00 11/17/18 16:59 Pantoprazole (Protonix) 40 mg ACBREAKFAST ORAL 10/19/18 06:30 11/09/18 08:59 10/19/18 06:13 Polymyxin B Sulfate 280208 units/Dextrose 250 ml @ 250 mls/hr EVERY 12 HOURS IVPB 10/20/18 09:00 10/27/18 08:59 10/20/18 20:44 Promethazine HCl (Phenergan Plain) 6.25 mg Q6H PRN ORAL For Cough 10/18/18 16:45 11/10/18 04:32 Vancomycin HCl (Vanco rx to dose) 1 ea DAILY PRN MISC Per rx protocol 10/19/18 23:30 11/18/18 23:29 Barry Schmitt MD Oct 21, 2018 06:05
[2018-10-21] MEDS: NovoLOG Insulin Flexpen SUBQ SCH ×4 (06:17→21:00)
--- NOTE | 2018-10-21 07:30 | NUR ---
RESPIRATORY NOTE: Received patient on current vent settings. Patient ETT tube is patent and secured via anchor fast. Suctioned patient PRN. Vent alarms are on and audible. Vent is plugged into red outlet. Will monitor pt progress.
--- NOTE | 2018-10-21 07:34 | NUR ---
NURSE NOTES: Received pt from JACQUI Porter. Patient opens eyes spontaneously, unable to follow commands, responds to pain. Orally intubated ETT 7.5, 23cm lip line, AC 20, TV 500, FIO2 35%, PEEP +5, saturating 96%. SR noted on the director of cardiac rehabilitation. OGT intact and patent, running nephro at 40ml/hr, no residual noted. Right IJ Hugh cath, dressing i/c/d. Left UA double lumen PICC intact, and patent. On Heparin drip 3units/kg/hr, dobutamine at 2.5mcg/kg/hr, and Levophed at 30mcg/min. No s/sx of bleeding noted. Pt on P200. multiple wound dressings intact, clean and dry. pt anuric. Call light within reach. Bed in lowest position, locked. Bed alarms on. Will continue to monitor. Addendum: 10/21/18 at 0742 by NATHANIEL MEDEIROS RN correction: Fio2 35%. Pt on left wrist soft restraints. no skin breakdown noted. pulses present.
[2018-10-21] MEDS: Aspirin EC 81mg tab ORAL SCH (08:13)
[2018-10-21] MEDS: Tums 500mg GT SCH ×2 (08:13→17:28)
[2018-10-21] MEDS: Docusate 100mg/10ml Liq GT SCH ×2 (08:14→17:28)
--- NOTE | 2018-10-21 08:55 | NUR ---
RADIOLOGY DEPT CHEST X-RAY DONE.- P.DYE
[2018-10-21] MEDS: D5W IVPB SCH ×2 (09:42→21:06)
[2018-10-21] MEDS: POLYMYXIN B SULFATE IVPB SCH ×2 (09:42→21:06)
--- NOTE | 2018-10-21 10:00 | NUR ---
NURSE NOTES: Patient resting in bed comfortably. no acute distress noted. oral care provided.
--- NOTE | 2018-10-21 10:03 | Pulmonolgy Critical Care Note ---
Critical Care - Asmt/Plan Problems: (1) Respiratory failure, acute (2) Ventilator dependence (3) CHF (congestive heart failure) (4) CAD (coronary artery disease) (5) NSTEMI (non-ST elevated myocardial infarction) (6) Respiratory acidosis (7) Hemoptysis (8) Hypoglycemia (9) Pneumonia (10) Hypotension (11) Elevated d-dimer (12) Acute kidney injury superimposed on CKD Assessment & Plan: S/P initiation of HD Respiratory: monitor respiratory rate, adjust FIO2, CXR, other - HHN's Cardiac: continue pressors - NE 30, Dobut 2.5, PRN DA, continue to monitor HR/ BP, other - F/U cards recs, UF as able Renal: other - HD as able to tolerate Infectious Disease: check cultures, continue antibiotics Gastrointestinal: continue feedings/current rate Endocrine: monitor blood sugar Hematologic: monitor H/H, other - IVUH, CT-A when able Neurologic: keep patient comfortable, other - Monitor MS, FU neuro recs, F/U EEG, F/U CT head when able Prophylaxis: Protonix, Heparin - IVUH Disposition: keep in ICU Time Spent (Minutes): 40 Notes Reviewed: customer sales consultant, cardio, renal, ID, neuro, other - psych Discussed with: nurses, consultants Critical Care - Objective Last 24 Hour Vital Signs Date Time Temp Pulse Resp B/P (MAP) Pulse Ox O2 Delivery O2 Flow Rate FiO2 10/21/18 08:45 97 20 106/62 (77) 100 10/21/18 08:30 96 21 110/59 (76) 100 10/21/18 08:15 96 24 101/50 (67) 100 10/21/18 08:00 97 10/21/18 08:00 98.0 95 23 101/60 (74) 100 10/21/18 08:00 40 10/21/18 08:00 101/64 10/21/18 08:00 Mechanical Ventilator Room Air 10/21/18 07:45 94 22 109/59 (76) 96 10/21/18 07:39 94 20 100 Mechanical Ventilator 40 10/21/18 07:31 98 23 100 Mechanical Ventilator 40 10/21/18 07:30 97 21 112/55 (74) 100 10/21/18 07:30 95 23 40 10/21/18 07:15 96 23 102/63 (76) 100 2/14/19 07:00 90 19 118/81 (93) 100 10/21/18 07:00 118/81 10/21/18 05:30 88 24 104/58 (73) 100 10/21/18 05:15 89 24 109/49 (69) 100 10/21/18 05:05 88 26 40 10/21/18 05:00 89 24 105/52 (69) 100 10/21/18 04:45 88 24 113/46 (68) 100 10/21/18 04:30 87 25 105/50 (68) 100 10/21/18 04:15 100/87 10/21/18 04:15 88 24 104/44 (64) 100 10/21/18 04:00 Mechanical Ventilator Room Air 10/21/18 04:00 40 10/21/18 04:00 95 10/21/18 04:00 97.8 95 20 100/87 (91) 100 10/21/18 03:30 97 23 105/54 (71) 99 10/21/18 03:15 97 29 103/59 (74) 99 10/21/18 03:00 97 26 40 10/21/18 03:00 97 28 110/46 (67) 99 10/21/18 02:45 96 22 102/51 (68) 98 10/21/18 02:30 91 22 102/50 (67) 100 10/21/18 02:15 91 22 109/47 (67) 100 10/21/18 02:00 91 22 103/45 (64) 100 10/21/18 01:45 91 22 104/50 (68) 100 10/21/18 01:30 92 21 104/63 (77) 100 10/21/18 01:23 91 20 100 Mechanical Ventilator 40 10/21/18 01:15 91 21 107/54 (71) 100 10/21/18 01:13 96 26 100 Mechanical Ventilator 40 10/21/18 01:13 96 26 40 10/21/18 01:00 92 21 111/53 (72) 100 10/21/18 00:45 93 18 110/50 (70) 100 10/21/18 00:30 93 21 105/53 (70) 100 10/21/18 00:15 94 20 107/55 (72) 100 10/21/18 00:14 104/53 10/21/18 00:00 40 10/21/18 00:00 Mechanical Ventilator Room Air 10/21/18 00:00 92 10/21/18 00:00 98.3 93 20 110/50 (70) 100 10/20/18 23:45 93 20 104/53 (70) 100 10/20/18 23:30 93 20 103/50 (67) 100 10/20/18 23:00 90 20 101/47 (65) 100 10/20/18 22:53 91 25 40 10/20/18 22:45 90 21 106/47 (66) 100 10/20/18 22:30 90 21 104/61 (75) 100 10/20/18 22:00 99 22 112/50 (70) 100 10/20/18 21:45 100 23 118/49 (72) 99 10/20/18 21:30 100 24 116/45 (68) 99 10/20/18 21:15 100 23 104/50 (68) 99 10/20/18 21:00 100 24 109/47 (67) 99 10/20/18 20:50 96 21 40 10/20/18 20:45 96 23 105/49 (67) 99 10/20/18 20:30 96 24 104/42 (62) 98 10/20/18 20:15 95 22 106/52 (70) 99 10/20/18 20:00 40 10/20/18 20:00 97 10/20/18 20:00 97 22 115/46 (69) 99 10/20/18 20:00 Mechanical Ventilator Room Air 10/20/18 19:45 96 21 105/47 (66) 100 10/20/18 19:39 95 24 100 Mechanical Ventilator 40 10/20/18 19:30 96 20 111/48 (69) 100 10/20/18 19:29 97 24 98 Mechanical Ventilator 40 10/20/18 19:28 97 24 40 10/20/18 19:15 97 20 111/56 (74) 98 10/20/18 19:00 111/56 10/20/18 19:00 111/56 10/20/18 18:45 113/51 10/20/18 18:45 99 20 113/51 (71) 98 10/20/18 18:30 99 24 101/46 (64) 97 10/20/18 18:15 102 20 109/57 (74) 100 10/20/18 18:06 110/44 10/20/18 18:00 86/44 10/20/18 18:00 100 23 110/44 (66) 99 10/20/18 17:45 98 24 85/38 (54) 97 10/20/18 17:43 78/42 10/20/18 17:30 93 22 75/35 (48) 100 10/20/18 17:15 92 25 82/33 (49) 97 10/20/18 17:08 93 25 40 10/20/18 17:00 90 24 82/36 (51) 98 10/20/18 16:45 110 22 100/46 (64) 100 10/20/18 16:30 100 22 56/28 (37) 100 10/20/18 16:23 Endotracheal Tube 40.0 10/20/18 16:15 110 22 81/46 (58) 100 10/20/18 16:00 40 10/20/18 16:00 Mechanical Ventilator Room Air 10/20/18 16:00 90 10/20/18 16:00 98/56 10/20/18 16:00 98.5 95 22 77/45 (56) 100 10/20/18 15:45 94 25 112/44 (66) 100 10/20/18 15:30 90 21 98/55 (69) 100 10/20/18 15:15 88 22 107/65 (79) 100 10/20/18 15:00 86 22 109/46 (67) 100 10/20/18 14:50 87 25 40 10/20/18 14:45 84 22 110/84 (93) 98 10/20/18 14:30 84 23 108/42 (64) 96 10/20/18 14:15 84 23 107/47 (67) 98 10/20/18 14:07 110/84 10/20/18 14:00 74/35 10/20/18 14:00 78 25 74/35 (48) 94 10/20/18 13:45 83 24 77/45 (56) 97 10/20/18 13:30 80 22 105/44 (64) 98 10/20/18 13:24 83 27 40 10/20/18 13:24 83 27 99 Mechanical Ventilator 40 10/20/18 13:15 83 22 110/84 (93) 98 10/20/18 13:14 83 20 99 Mechanical Ventilator 35 10/20/18 13:00 83 22 105/43 (63) 98 10/20/18 12:45 85 24 91/41 (58) 98 10/20/18 12:30 93 24 91/44 (60) 98 10/20/18 12:15 93 22 110/84 (93) 98 10/20/18 12:00 40 10/20/18 12:00 93 10/20/18 12:00 98.6 93 24 101/53 (69) 98 10/20/18 12:00 Mechanical Ventilator Room Air 10/20/18 11:45 92 24 108/54 (72) 98 10/20/18 11:30 93 24 107/55 (72) 98 10/20/18 11:15 92 24 98/87 (91) 98 10/20/18 11:00 113/48 10/20/18 11:00 93 22 117/47 (70) 98 10/20/18 11:00 91 30 40 10/20/18 10:45 92 23 113/48 (69) 96 10/20/18 10:30 89 24 115/78 (90) 96 10/20/18 10:15 89 24 106/60 (75) 98 10/20/18 10:00 84 22 96/49 (65) 97 10/20/18 10:00 96/49 Status: somnolent, other - intubated Condition: critical, grave HEENT: atraumatic, other - OGT Lungs: rales Heart: regular Abdomen: soft, non-tender, active bowel sounds Extremities: edema - 1+ BUE edema, trace SLOANE Decubiti: location, stage - 2 Micro: Microbiology Date/Time Source Procedure Growth Status 10/20/18 10:00 Sputum Induced Gram Stain - Final Resulted 10/20/18 10:00 Sputum Induced Sputum Culture Pending Resulted Accucheck: 132 Blood Sugars: BS controlled - sacral Critical Care - Subjective ROS Limited/Unobtainable: Yes ICU Day: 4 Intubation Day: 3 Interval Events: Afebrile inc press requirements CTs not done not moving R arm Condition: grave IV Access: PICC, central - R Ij cem EKG Rhythm: Sinus Rhythm FI02: 40 Vent Support Breath Rate: 20 Vent Support Mode: AC Vent Tidal Volume: 500 Sputum Amount: Small PEEP: 5.0 PIP: 38 Secretions: brown Fluids: D5W@30 Drips: NE 30 Dobut 2.5 IVUH Tube Feeding Amount: 40 I&O: Intake and Output 10/20/18 10/21/18 19:00 07:00 Intake Total 1239.118 ml 2124.356 ml Balance 1239.118 ml 2124.356 ml Intake Oral 0 ml Free Water 100 ml 130 ml IV Total 1079.118 ml 1564.356 ml Tube Feeding 60 ml 430 ml Subjective: ZACHARY CXR: pending ET-Tube: 7.5 ET Position: 23 Labs: Laboratory Tests Test 10/20/18 11:05 10/20/18 13:50 10/21/18 04:00 Arterial Blood pH 7.339 (7.350-7.450) Arterial Blood Partial Pressure CO2 29.7 mmHg (35.0-45.0) L Arterial Blood Partial Pressure O2 104.4 mmHg (75.0-100.0) H Arterial Blood HCO3 15.6 mmol/L (22.0-26.0) *L Arterial Blood Oxygen Saturation 95.9 % (95-100) Arterial Blood Base Excess -9.0 (-2-2) L Tee Test Positive Activated Partial Thromboplast Time 73 SEC (23-33) H 67 SEC (23-33) H White Blood Count 24.2 K/UL (4.8-10.8) *H Red Blood Count 3.90 M/UL (4.70-6.10) L Hemoglobin 10.6 G/DL (14.2-18.0) L Hematocrit 33.1 % (42.0-52.0) L Mean Corpuscular Volume 85 FL (80-99) Mean Corpuscular Hemoglobin 27.2 PG (27.0-31.0) Mean Corpuscular Hemoglobin Concent 32.0 G/DL (32.0-36.0) Red Cell Distribution Width 19.3 % (11.6-14.8) H Platelet Count 93 K/UL (150-450) L Mean Platelet Volume 7.7 FL (6.5-10.1) Neutrophils (%) (Auto) % (45.0-75.0) Lymphocytes (%) (Auto) % (20.0-45.0) Monocytes (%) (Auto) % (1.0-10.0) Eosinophils (%) (Auto) % (0.0-3.0) Basophils (%) (Auto) % (0.0-2.0) Differential Total Cells Counted 100 Neutrophils % (Manual) 83 % (45-75) H Lymphocytes % (Manual) 11 % (20-45) L Monocytes % (Manual) 5 % (1-10) Eosinophils % (Manual) 1 % (0-3) Basophils % (Manual) 0 % (0-2) Band Neutrophils 0 % (0-8) Nucleated Red Blood Cells 3 /100 WBC Platelet Estimate Decreased L Platelet Morphology Normal Polychromasia 1+ Hypochromasia 1+ Anisocytosis 2+ Sodium Level 121 MMOL/L (136-145) L Potassium Level 5.0 MMOL/L (3.5-5.1) Chloride Level 83 MMOL/L (98-107) L Carbon Dioxide Level 20 MMOL/L (21-32) L Anion Gap 18 mmol/L (5-15) H Blood Urea Nitrogen 81 mg/dL (7-18) H Creatinine 5.5 MG/DL (0.55-1.30) H Estimat Glomerular Filtration Rate mL/min (>60) Glucose Level 123 MG/DL (74-106) H Calcium Level 6.6 MG/DL (8.5-10.1) L Chidi Bourne MD Oct 21, 2018 10:03
--- NOTE | 2018-10-21 11:23 | Diagnostic Imaging Report ---
Indication: Dyspnea Technique: One view of the chest Comparison: To 08/26/2019 Findings: Bilateral small pleural effusions are unchanged. Stable satisfactory positions of endotracheal tube, right external jugular temporary dialysis catheter, left arm PICC. Interim placement of a nasogastric tube, tip which projects beyond the edge of image, documented to be intragastric on an earlier abdominal radiograph. Previously demonstrated right basilar interstitial opacities appear improved Impression: Interim enteric feeding tube placement. Slight clearing of previously demonstrated right basilar interstitial opacities. Otherwise, little belt changer 2 days, findings as noted
--- NOTE | 2018-10-21 12:00 | NUR ---
NURSE NOTES: patient was turned and repositioned. pt kept clean and dry. vss. continue heparin gtt, doputamine and levophed gtt.
--- NOTE | 2018-10-21 14:09 | Nephrology Progress Note ---
Assessment/Plan Problem List: (1) Acute kidney injury superimposed on CKD Assessment: no recovery (2) CHF (congestive heart failure) (3) NSTEMI (non-ST elevated myocardial infarction) (4) Hypotension (5) Pneumonia (6) Hypoglycemia (7) Respiratory failure, acute (8) Sepsis (9) Hyponatremia Assessment: worse Plan HD on hold Discussed with Dr Key and RN continue pressors abxs per ID follow labs Vent support Restrict free water Subjective Subjective Pt could not be dialyzed yesterday BP dropped Objective Objective Last 24 Hour Vital Signs Date Time Temp Pulse Resp B/P (MAP) Pulse Ox O2 Delivery O2 Flow Rate FiO2 10/21/18 13:19 87 23 100 Mechanical Ventilator 40 10/21/18 13:12 87 23 40 10/21/18 13:12 87 23 100 Mechanical Ventilator 40 10/21/18 12:00 40 10/21/18 12:00 86 20 102/50 (67) 100 10/21/18 12:00 Mechanical Ventilator Room Air 10/21/18 11:45 85 24 96/51 (66) 100 10/21/18 11:30 85 20 102/52 (69) 100 10/21/18 11:15 85 22 102/49 (66) 100 10/21/18 11:01 90 25 40 10/21/18 11:00 86 20 96/50 (65) 100 10/21/18 10:45 88 20 96/47 (63) 100 10/21/18 10:30 92 20 104/45 (64) 100 10/21/18 10:15 87 20 97/48 (64) 100 10/21/18 10:00 94 20 103/65 (78) 100 10/21/18 09:45 95 19 107/47 (67) 99 10/21/18 09:30 96 22 104/53 (70) 100 10/21/18 09:15 97 22 105/54 (71) 100 10/21/18 09:00 97 22 108/53 (71) 100 10/21/18 08:49 93 24 40 10/21/18 08:45 97 20 106/62 (77) 100 10/21/18 08:30 96 21 110/59 (76) 100 10/21/18 08:15 96 24 101/50 (67) 100 10/21/18 08:00 97 10/21/18 08:00 98.0 95 23 101/60 (74) 100 10/21/18 08:00 40 10/21/18 08:00 101/64 10/21/18 08:00 Mechanical Ventilator Room Air 10/21/18 07:45 94 22 109/59 (76) 96 10/21/18 07:39 94 20 100 Mechanical Ventilator 40 10/21/18 07:31 98 23 100 Mechanical Ventilator 40 10/21/18 07:30 97 21 112/55 (74) 100 10/21/18 07:30 95 23 40 10/21/18 07:15 96 23 102/63 (76) 100 10/21/18 07:00 90 19 118/81 (93) 100 10/21/18 07:00 118/81 10/21/18 05:30 88 24 104/58 (73) 100 10/21/18 05:15 89 24 109/49 (69) 100 10/21/18 05:05 88 26 40 10/21/18 05:00 89 24 105/52 (69) 100 10/21/18 04:45 88 24 113/46 (68) 100 10/21/18 04:30 87 25 105/50 (68) 100 10/21/18 04:15 100/87 10/21/18 04:15 88 24 104/44 (64) 100 10/21/18 04:00 Mechanical Ventilator Room Air 10/21/18 04:00 40 10/21/18 04:00 95 10/21/18 04:00 97.8 95 20 100/87 (91) 100 10/21/18 03:30 97 23 105/54 (71) 99 10/21/18 03:15 97 29 103/59 (74) 99 10/21/18 03:00 97 26 40 10/21/18 03:00 97 28 110/46 (67) 99 10/21/18 02:45 96 22 102/51 (68) 98 10/21/18 02:30 91 22 102/50 (67) 100 10/21/18 02:15 91 22 109/47 (67) 100 10/21/18 02:00 91 22 103/45 (64) 100 10/21/18 01:45 91 22 104/50 (68) 100 10/21/18 01:30 92 21 104/63 (77) 100 10/21/18 01:23 91 20 100 Mechanical Ventilator 40 10/21/18 01:15 91 21 107/54 (71) 100 10/21/18 01:13 96 26 100 Mechanical Ventilator 40 10/21/18 01:13 96 26 40 10/21/18 01:00 92 21 111/53 (72) 100 10/21/18 00:45 93 18 110/50 (70) 100 10/21/18 00:30 93 21 105/53 (70) 100 10/21/18 00:15 94 20 107/55 (72) 100 10/21/18 00:14 104/53 10/21/18 00:00 40 10/21/18 00:00 Mechanical Ventilator Room Air 10/21/18 00:00 92 10/21/18 00:00 98.3 93 20 110/50 (70) 100 10/20/18 23:45 93 20 104/53 (70) 100 10/20/18 23:30 93 20 103/50 (67) 100 10/20/18 23:00 90 20 101/47 (65) 100 10/20/18 22:53 91 25 40 10/20/18 22:45 90 21 106/47 (66) 100 10/20/18 22:30 90 21 104/61 (75) 100 10/20/18 22:00 99 22 112/50 (70) 100 10/20/18 21:45 100 23 118/49 (72) 99 10/20/18 21:30 100 24 116/45 (68) 99 10/20/18 21:15 100 23 104/50 (68) 99 10/20/18 21:00 100 24 109/47 (67) 99 10/20/18 20:50 96 21 40 10/20/18 20:45 96 23 105/49 (67) 99 10/20/18 20:30 96 24 104/42 (62) 98 10/20/18 20:15 95 22 106/52 (70) 99 10/20/18 20:00 40 10/20/18 20:00 97 10/20/18 20:00 97 22 115/46 (69) 99 10/20/18 20:00 Mechanical Ventilator Room Air 10/20/18 19:45 96 21 105/47 (66) 100 10/20/18 19:39 95 24 100 Mechanical Ventilator 40 10/20/18 19:30 96 20 111/48 (69) 100 10/20/18 19:29 97 24 98 Mechanical Ventilator 40 10/20/18 19:28 97 24 40 10/20/18 19:15 97 20 111/56 (74) 98 10/20/18 19:00 111/56 10/20/18 19:00 111/56 10/20/18 18:45 113/51 10/20/18 18:45 99 20 113/51 (71) 98 10/20/18 18:30 99 24 101/46 (64) 97 10/20/18 18:15 102 20 109/57 (74) 100 10/20/18 18:06 110/44 10/20/18 18:00 86/44 10/20/18 18:00 100 23 110/44 (66) 99 10/20/18 17:45 98 24 85/38 (54) 97 10/20/18 17:43 78/42 10/20/18 17:30 93 22 75/35 (48) 100 10/20/18 17:15 92 25 82/33 (49) 97 10/20/18 17:08 93 25 40 10/20/18 17:00 90 24 82/36 (51) 98 10/20/18 16:45 110 22 100/46 (64) 100 10/20/18 16:30 100 22 56/28 (37) 100 10/20/18 16:23 Endotracheal Tube 40.0 10/20/18 16:15 110 22 81/46 (58) 100 10/20/18 16:00 40 10/20/18 16:00 Mechanical Ventilator Room Air 10/20/18 16:00 90 10/20/18 16:00 98/56 10/20/18 16:00 98.5 95 22 77/45 (56) 100 10/20/18 15:45 94 25 112/44 (66) 100 10/20/18 15:30 90 21 98/55 (69) 100 10/20/18 15:15 88 22 107/65 (79) 100 10/20/18 15:00 86 22 109/46 (67) 100 10/20/18 14:50 87 25 40 10/20/18 14:45 84 22 110/84 (93) 98 10/20/18 14:30 84 23 108/42 (64) 96 10/20/18 14:15 84 23 107/47 (67) 98 10/20/18 14:07 110/84 Intake and Output 10/20/18 10/21/18 19:00 07:00 Intake Total 1239.118 ml 2124.356 ml Balance 1239.118 ml 2124.356 ml Intake Oral 0 ml Free Water 100 ml 130 ml IV Total 1079.118 ml 1564.356 ml Tube Feeding 60 ml 430 ml Laboratory Tests 10/21/18 04:00: White Blood Count 24.2*H, Red Blood Count 3.90L, Hemoglobin 10.6L, Hematocrit 33.1L, Mean Corpuscular Volume 85, Mean Corpuscular Hemoglobin 27.2, Mean Corpuscular Hemoglobin Concent 32.0, Red Cell Distribution Width 19.3H, Platelet Count 93L, Mean Platelet Volume 7.7, Neutrophils (%) (Auto) , Lymphocytes (%) (Auto) , Monocytes (%) (Auto) , Eosinophils (%) (Auto) , Basophils (%) (Auto) , Differential Total Cells Counted 100, Neutrophils % ( Manual) 83H, Lymphocytes % (Manual) 11L, Monocytes % (Manual) 5, Eosinophils % ( Manual) 1, Basophils % (Manual) 0, Band Neutrophils 0, Nucleated Red Blood Cells 3, Platelet Estimate DecreasedL, Platelet Morphology Normal, Polychromasia 1+, Hypochromasia 1+, Anisocytosis 2+, Activated Partial Thromboplast Time 67H, Sodium Level 121L, Potassium Level 5.0, Chloride Level 83L, Carbon Dioxide Level 20L, Anion Gap 18H, Blood Urea Nitrogen 81H, Creatinine 5.5H, Estimat Glomerular Filtration Rate , Glucose Level 123H, Calcium Level 6.6L Height (Feet): 5 Height (Inches): 2.00 Weight (Pounds): 148 Cardiovascular: normal rate Respiratory/Chest: rhonchi - bilaterally Extremities: moderate edema, severe edema Mario Porter MD Oct 21, 2018 14:09
--- NOTE | 2018-10-21 14:45 | NUR ---
NURSE NOTES: Pt off the unit for CT head, accompanied by primary nurse and rt.
--- NOTE | 2018-10-21 15:10 | NUR ---
NURSE NOTES: Patient back in the room from CT head, pt tolerated procedure well, vss.
--- NOTE | 2018-10-21 15:30 | NUR ---
NURSE NOTES: No HD today per Dr. Porter.
--- NOTE | 2018-10-21 16:38 | Diagnostic Imaging Report ---
Indications: Altered mental status Technique: Spiral acquisitions obtained through the brain. Angled axial and coronal 5 x 5 mm slices were reconstructed. Total dose length product 1362.01 mGycm. CTDI vol(s) 70.38 mGy. Dose reduction achieved using automated exposure control Comparison: None. Findings: There is age-related enlargement of the ventricles and extra axial CSF spaces. There is minimal periventricular deep white matter low-attenuation, consistent with chronic ischemic change. Old lacunar infarct is seen in the left benites radiata. Normal montalvo-white differentiation otherwise. Intact calvarium. Visualized orbits and sinuses are unremarkable. Impression: Chronic and age-related changes Negative for acute intracranial bleed or mass effect The CT scanner at [facility] is accredited by the [employer] and the scans are performed using protocols designed to limit radiation exposure to as low as reasonably achievable to attain images of sufficient resolution adequate for diagnostic evaluation.
--- NOTE | 2018-10-21 17:56 | NUR ---
NURSE NOTES: suctioned, turned and repositioned. oral care provided. no acute distress noted.
--- NOTE | 2018-10-21 19:06 | NUR ---
HAND-OFF: Report given to JACQUI Porter.
--- NOTE | 2018-10-21 19:17 | NUR ---
RESPIRATORY NOTE: Received pt on AC 20, 500VT, 40%, PEEP +5. Pt intubated w/ ETT 7.5 @23cm lipline, secured by anchorfast. Pt disoriented, responds to stimuli. Both hands on soft restraints to prevent pt from self-extubation. B/S munira. rhonchi, sxn minimal amounts of thick, oliveira/pink secretions w/ occasional clots. Vent plugged into red outlet, ambubag at bedside. Pt in no apparent distress at this time. Will continue to monitor pt.
--- NOTE | 2018-10-21 19:25 | Neurology Progress Note ---
Interim History Interim History Interim History Mr. Gann continues to be poorly responsive. He does open his eyes on loud vocal stimulation. He continues to move his left side more then the right. He went for a brain CT today but it was unremarkable. He continues to be on pressors. He continues to be intubated and artificially ventilated. He continues to be acutely ill. Review of Systems Neuro Review of Systems Unable to obtain. Objective Physical Exam Last Vital Signs Date Time Temp Pulse Resp B/P (MAP) Pulse Ox O2 Delivery O2 Flow Rate FiO2 10/21/18 19:00 96 23 110/53 (72) 99 10/21/18 16:35 40 10/21/18 16:00 Mechanical Ventilator Room Air 10/21/18 16:00 98.6 10/20/18 16:23 40.0 Laboratory Tests Test 10/21/18 04:00 White Blood Count 24.2 K/UL (4.8-10.8) *H Red Blood Count 3.90 M/UL (4.70-6.10) L Hemoglobin 10.6 G/DL (14.2-18.0) L Hematocrit 33.1 % (42.0-52.0) L Mean Corpuscular Volume 85 FL (80-99) Mean Corpuscular Hemoglobin 27.2 PG (27.0-31.0) Mean Corpuscular Hemoglobin Concent 32.0 G/DL (32.0-36.0) Red Cell Distribution Width 19.3 % (11.6-14.8) H Platelet Count 93 K/UL (150-450) L Mean Platelet Volume 7.7 FL (6.5-10.1) Neutrophils (%) (Auto) % (45.0-75.0) Lymphocytes (%) (Auto) % (20.0-45.0) Monocytes (%) (Auto) % (1.0-10.0) Eosinophils (%) (Auto) % (0.0-3.0) Basophils (%) (Auto) % (0.0-2.0) Differential Total Cells Counted 100 Neutrophils % (Manual) 83 % (45-75) H Lymphocytes % (Manual) 11 % (20-45) L Monocytes % (Manual) 5 % (1-10) Eosinophils % (Manual) 1 % (0-3) Basophils % (Manual) 0 % (0-2) Band Neutrophils 0 % (0-8) Nucleated Red Blood Cells 3 /100 WBC Platelet Estimate Decreased L Platelet Morphology Normal Polychromasia 1+ Hypochromasia 1+ Anisocytosis 2+ Activated Partial Thromboplast Time 67 SEC (23-33) H Sodium Level 121 MMOL/L (136-145) L Potassium Level 5.0 MMOL/L (3.5-5.1) Chloride Level 83 MMOL/L (98-107) L Carbon Dioxide Level 20 MMOL/L (21-32) L Anion Gap 18 mmol/L (5-15) H Blood Urea Nitrogen 81 mg/dL (7-18) H Creatinine 5.5 MG/DL (0.55-1.30) H Estimat Glomerular Filtration Rate mL/min (>60) Glucose Level 123 MG/DL (74-106) H Calcium Level 6.6 MG/DL (8.5-10.1) L Neurologic Exam Objective PHYSICAL EXAMINATION: GENERAL: He is a well-developed, relatively well-nourished gentleman , lying in an ICU bed, connected to a ventilator through an orotracheal tube. HEAD: Normocephalic and atraumatic. NECK: No neck rigidity was observed. EENT: Benign. NEUROLOGICAL EXAMINATION: MENTAL STATUS EXAMINATION: He opened his eyes on loud vocal stimuli. He however did not follow any commands. He was unable to communicate. Further mental status testing was impossible. SPEECH: Could not be tested. LANGUAGE: Could not be tested. CRANIAL NERVE EXAMINATION: II: He did not blink to threat. III, IV & : The external ocular movements were present on oculocephalic maneuvers. The pupils were 3 mm in diameter, equal, round, regular, and did not react to light. V & VII: The corneal reflexes were present bilaterally, but significantly diminished on the right side compared to the left. VIII: He did not respond to sounds and had no nystagmus. IX & X: The gag reflex was absent on manipulating the endotracheal tube. XI: The sternocleidomastoids and trapezii did not function. XII: Could not be tested adequately. MOTOR SYSTEM: The tone was normal in all four extremities. Examination of muscle mass revealed no focal wasting. Examination of power was impossible to perform on individual muscle groups; however, when deep painful stimuli were applied, he moved all four extremities. He exhibited purposeful withdrawal of the left upper extremity but non- purposeful withdrawal of the right upper extremity. In addition withdrawal was weaker on the right than on the left. SENSORY EXAMINATION: He responded appropriately to deep pain. He was unable to cooperate for other sensory modalities. REFLEXES: Trace+ and bilaterally symmetrical at the biceps, triceps, brachioradialis. 0 at both knees and ankles. The plantar response was extensor on the right and mute on the left. COORDINATION, STANCE & GAIT: Could not be tested. Impression/Recommendations Diagnostic Impression 1. Mr. Marla Gann is an 83-year-old, gentleman, of unknown handedness, with a past history of multiple medical problems including hypertension, diabetes mellitus, dyslipidemia, aortic stenosis, vitamin B12 deficiency, vitamin D deficiency, coronary artery disease, congestive heart failure, and intestinal pathology. He was hospitalized on 10/09/2018 for an altered mental state related to multiple metabolic imbalances. He did improve, but then in the hospital, he has had multiple further episodes of hypoglycemia. On the morning of 10/19/18, his blood sugar dropped to 22. He has also had problems with his respiratory function, progressive renal dysfunction, and on the morning of 10/19/18 was noted to have weakness in his right upper extremity, this problem continues. 2. He continues to be poorly responsive. He does open his eyes on loud vocal stimulation. He continues to move his left side more then the right. He went for a brain CT today but it was unremarkable. He continues to be on pressors. He continues to be intubated and artificially ventilated. He continues to be acutely ill. 3. On neurological examination, at this time, he opens his eyes on loud vocal stimuli, he however does not follow any commands. He is unable to communicate and further mental status testing is impossible. 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 His deep tendon reflexes are globally diminished in the upper extremities and lost in the lower extremities. His plantar response is extensor on the right and mute on the left. 4. His laboratory data on my initial evluation revealed that his WBC count was elevated to 16,000. His hemoglobin was low at 7.2 G. His arterial blood gas revealed a pH of 7.18, a pCO2 of 43, and a pO2 of 112. His chemistry panel revealed a sodium of 133, potassium of 5.3, chloride of 91, BUN at 89, creatinine at 5.2, and blood glucose at 22. 5. His EEG done on 10/19/18 revealed a moderately severe encephalopathy with a definite toxic/metabolic component. 6. The CT of the brain was benign for acute pathology. 7. His latest laboratory tests reveal that his leukocytosis is worse with a WBC count of 24,200. He is severely hyponatremic with a Na of 121 and chloride of 83. His BUN is elevated at 81 with a creatinine of 5.5 8. The patient's history, neurological examination, and laboratory data are most compatible with a significant toxic metabolic encephalopathy that brought him into the hospital, and now possibly an acute cerebral lesion causing the right hemiparesis. Recommendations 1. Continue present management. 2. Continue to correct toxic metabolic imbalances. 3. Try to keep the blood pressure >110 mmHg systolic. 4. When possible get MRI of brain. 5. Observe closely in ICU setting. Abram Johnson M.D., M.S.P.H. Abram Johnson MD Oct 21, 2018 19:25
--- NOTE | 2018-10-21 19:30 | NUR ---
NURSE NOTES: Recvd.on a vent.orally intubated,See settings.lungs few scatt.Rh.P.Ox-98-100%.See V/S.Scope SR-ST with BBB.LEVO.drip in progress TIT.to BPS >90.Dobutamine drip infusing at 2.5mcg/kg/min.R/T low EF.Heparin drip running at 3units/kg/hr.Observed for S/S of any excessive bldng.Pos. chg.OGT Feeding in progress.On Bila.soft wrist restraints prev.self-injury.
[2018-10-21] MEDS: Dyna-Hex 2% Top Sol 2oz TOPIC SCH (19:31)
--- NOTE | 2018-10-21 19:57 | Cardiology Progress Note ---
Assessment/Plan Assessment/Plan cardiology critical care 1. Hypoglycemia secondary to medication. 2. Diabetes mellitus previously. 3. Acute Respiratory inusf / hemoptysis 4. History of ischemic cardiomyopathy with ejection fraction of 40%. 5. Mitral regurgitation, [id number] degree on recent echocardiogram last week. 6. Moderate tricuspid regurgitation. 7. Mild pulmonary hypertension with 43 through 48. 8. Pleural effusions history. 9. Abnormal gastric endoscopy, suspicious for malignancy with submucosal resection. 10. Aortic stenosis. 11. Hyperlipidemia. 12. Prostate cancer. 13. Abnormal facial asymmetry. 14. CAD 15. hypotension 16. NSTEMI demand related vs PE related doubt acs 17. acute on chronic renal failure 18. metabolic acidosis 19. hemiparesis 20. hypotension 21. wide pusle pressure imporved 22. abn lft probable shock liver v/q was ordered but not done is on heparin ct done wasnot very remarkaable need mri when feasibel is responsive but not follow commands noted cr increased on dobutamine is on levophed as well echo reviewed has infor post swma and mod mr and ef probley 35-40% , rv is not enlarge ivc ws enlarged at the time was done unalbel to toelrat dialysisi as low bp yest d/w dr gibson today neuro input appreciated is on abx adjsuted by id bp is still low nwo has abn lft ammonia normal gi to see abd u/s Subjective ROS Limited/Unobtainable: Yes Subjective intubated on 3 pressor Objective Last 24 Hour Vital Signs Date Time Temp Pulse Resp B/P (MAP) Pulse Ox O2 Delivery O2 Flow Rate FiO2 10/21/18 19:26 92 25 100 Mechanical Ventilator 40 10/21/18 19:16 93 25 100 Mechanical Ventilator 40 10/21/18 19:15 93 25 40 10/21/18 19:00 96 23 110/53 (72) 99 10/21/18 19:00 110/53 10/21/18 18:30 96 21 107/55 (72) 100 10/21/18 18:00 96 21 107/54 (71) 99 10/21/18 17:30 89 18 98/49 (65) 100 10/21/18 17:00 86 15 94/47 (63) 100 10/21/18 16:35 89 26 40 10/21/18 16:30 87 26 91/52 (65) 100 2/14/19 16:00 40 10/21/18 16:00 Mechanical Ventilator Room Air 10/21/18 16:00 85 10/21/18 16:00 98.6 87 20 98/45 (62) 100 10/21/18 15:30 87 25 92/42 (59) 100 10/21/18 15:00 96 22 115/44 (67) 100 10/21/18 14:41 96 24 40 10/21/18 14:30 96 23 122/51 (74) 100 10/21/18 14:16 93/58 10/21/18 14:00 94 22 93/58 (70) 100 10/21/18 13:30 88 20 93/52 (66) 100 10/21/18 13:19 87 23 100 Mechanical Ventilator 40 10/21/18 13:12 87 23 40 10/21/18 13:12 87 23 100 Mechanical Ventilator 40 10/21/18 13:00 86 27 100/48 (65) 100 10/21/18 12:45 86 27 111/50 (70) 100 10/21/18 12:30 86 26 97/50 (66) 100 10/21/18 12:00 40 10/21/18 12:00 85 10/21/18 12:00 86 20 102/50 (67) 100 10/21/18 12:00 Mechanical Ventilator Room Air 10/21/18 11:45 85 24 96/51 (66) 100 10/21/18 11:30 85 20 102/52 (69) 100 10/21/18 11:15 85 22 102/49 (66) 100 10/21/18 11:01 90 25 40 10/21/18 11:00 86 20 96/50 (65) 100 10/21/18 10:45 88 20 96/47 (63) 100 10/21/18 10:30 92 20 104/45 (64) 100 10/21/18 10:15 87 20 97/48 (64) 100 10/21/18 10:00 94 20 103/65 (78) 100 10/21/18 09:45 95 19 107/47 (67) 99 10/21/18 09:30 96 22 104/53 (70) 100 10/21/18 09:15 97 22 105/54 (71) 100 10/21/18 09:00 97 22 108/53 (71) 100 10/21/18 08:49 93 24 40 10/21/18 08:45 97 20 106/62 (77) 100 10/21/18 08:30 96 21 110/59 (76) 100 10/21/18 08:15 96 24 101/50 (67) 100 10/21/18 08:00 97 10/21/18 08:00 98.0 95 23 101/60 (74) 100 10/21/18 08:00 40 10/21/18 08:00 101/64 10/21/18 08:00 Mechanical Ventilator Room Air 10/21/18 07:45 94 22 109/59 (76) 96 10/21/18 07:39 94 20 100 Mechanical Ventilator 40 10/21/18 07:31 98 23 100 Mechanical Ventilator 40 10/21/18 07:30 97 21 112/55 (74) 100 10/21/18 07:30 95 23 40 10/21/18 07:15 96 23 102/63 (76) 100 10/21/18 07:00 90 19 118/81 (93) 100 10/21/18 07:00 118/81 10/21/18 05:30 88 24 104/58 (73) 100 10/21/18 05:15 89 24 109/49 (69) 100 10/21/18 05:05 88 26 40 10/21/18 05:00 89 24 105/52 (69) 100 10/21/18 04:45 88 24 113/46 (68) 100 10/21/18 04:30 87 25 105/50 (68) 100 10/21/18 04:15 100/87 10/21/18 04:15 88 24 104/44 (64) 100 10/21/18 04:00 Mechanical Ventilator Room Air 10/21/18 04:00 40 10/21/18 04:00 95 10/21/18 04:00 97.8 95 20 100/87 (91) 100 10/21/18 03:30 97 23 105/54 (71) 99 10/21/18 03:15 97 29 103/59 (74) 99 10/21/18 03:00 97 26 40 10/21/18 03:00 97 28 110/46 (67) 99 10/21/18 02:45 96 22 102/51 (68) 98 10/21/18 02:30 91 22 102/50 (67) 100 10/21/18 02:15 91 22 109/47 (67) 100 10/21/18 02:00 91 22 103/45 (64) 100 10/21/18 01:45 91 22 104/50 (68) 100 10/21/18 01:30 92 21 104/63 (77) 100 10/21/18 01:23 91 20 100 Mechanical Ventilator 40 10/21/18 01:15 91 21 107/54 (71) 100 10/21/18 01:13 96 26 100 Mechanical Ventilator 40 10/21/18 01:13 96 26 40 10/21/18 01:00 92 21 111/53 (72) 100 10/21/18 00:45 93 18 110/50 (70) 100 10/21/18 00:30 93 21 105/53 (70) 100 10/21/18 00:15 94 20 107/55 (72) 100 10/21/18 00:14 104/53 10/21/18 00:00 40 10/21/18 00:00 Mechanical Ventilator Room Air 10/21/18 00:00 92 10/21/18 00:00 98.3 93 20 110/50 (70) 100 10/20/18 23:45 93 20 104/53 (70) 100 10/20/18 23:30 93 20 103/50 (67) 100 10/20/18 23:00 90 20 101/47 (65) 100 10/20/18 22:53 91 25 40 10/20/18 22:45 90 21 106/47 (66) 100 10/20/18 22:30 90 21 104/61 (75) 100 10/20/18 22:00 99 22 112/50 (70) 100 10/20/18 21:45 100 23 118/49 (72) 99 10/20/18 21:30 100 24 116/45 (68) 99 10/20/18 21:15 100 23 104/50 (68) 99 10/20/18 21:00 100 24 109/47 (67) 99 10/20/18 20:50 96 21 40 10/20/18 20:45 96 23 105/49 (67) 99 10/20/18 20:30 96 24 104/42 (62) 98 10/20/18 20:15 95 22 106/52 (70) 99 10/20/18 20:00 40 10/20/18 20:00 97 10/20/18 20:00 97 22 115/46 (69) 99 10/20/18 20:00 Mechanical Ventilator Room Air General Appearance: no apparent distress, on vent Neck: supple Cardiovascular: normal rate Respiratory/Chest: lungs clear, normal breath sounds Abdomen: normal bowel sounds, non tender, soft Extremities: no swelling Intake and Output 10/20/18 10/21/18 19:00 07:00 Intake Total 1239.118 ml 2124.356 ml Balance 1239.118 ml 2124.356 ml Intake Oral 0 ml Free Water 100 ml 130 ml IV Total 1079.118 ml 1564.356 ml Tube Feeding 60 ml 430 ml Laboratory Tests Test 10/21/18 04:00 White Blood Count 24.2 K/UL (4.8-10.8) *H Red Blood Count 3.90 M/UL (4.70-6.10) L Hemoglobin 10.6 G/DL (14.2-18.0) L Hematocrit 33.1 % (42.0-52.0) L Mean Corpuscular Volume 85 FL (80-99) Mean Corpuscular Hemoglobin 27.2 PG (27.0-31.0) Mean Corpuscular Hemoglobin Concent 32.0 G/DL (32.0-36.0) Red Cell Distribution Width 19.3 % (11.6-14.8) H Platelet Count 93 K/UL (150-450) L Mean Platelet Volume 7.7 FL (6.5-10.1) Neutrophils (%) (Auto) % (45.0-75.0) Lymphocytes (%) (Auto) % (20.0-45.0) Monocytes (%) (Auto) % (1.0-10.0) Eosinophils (%) (Auto) % (0.0-3.0) Basophils (%) (Auto) % (0.0-2.0) Differential Total Cells Counted 100 Neutrophils % (Manual) 83 % (45-75) H Lymphocytes % (Manual) 11 % (20-45) L Monocytes % (Manual) 5 % (1-10) Eosinophils % (Manual) 1 % (0-3) Basophils % (Manual) 0 % (0-2) Band Neutrophils 0 % (0-8) Nucleated Red Blood Cells 3 /100 WBC Platelet Estimate Decreased L Platelet Morphology Normal Polychromasia 1+ Hypochromasia 1+ Anisocytosis 2+ Activated Partial Thromboplast Time 67 SEC (23-33) H Sodium Level 121 MMOL/L (136-145) L Potassium Level 5.0 MMOL/L (3.5-5.1) Chloride Level 83 MMOL/L (98-107) L Carbon Dioxide Level 20 MMOL/L (21-32) L Anion Gap 18 mmol/L (5-15) H Blood Urea Nitrogen 81 mg/dL (7-18) H Creatinine 5.5 MG/DL (0.55-1.30) H Estimat Glomerular Filtration Rate mL/min (>60) Glucose Level 123 MG/DL (74-106) H Calcium Level 6.6 MG/DL (8.5-10.1) L Microbiology Date/Time Source Procedure Growth Status 10/20/18 06:10 Blood Blood Culture - Preliminary NO GROWTH AFTER 24 HOURS Resulted 10/20/18 06:00 Blood Blood Culture - Preliminary NO GROWTH AFTER 24 HOURS Resulted 10/20/18 10:00 Sputum Induced Gram Stain - Final Resulted 10/20/18 10:00 Sputum Induced Sputum Culture Pending Resulted Dg Key MD Oct 21, 2018 19:57
[2018-10-21] MEDS: Latanoprost 0.005% Opth 2.5ml Soln BOTH EYES SCH (21:05)
[2018-10-21] MEDS: Atorvastatin 20mg tab ORAL SCH (21:08)
[2018-10-21 21:29] LABS: ALANINE AMINOTRANSFERASE 888 U/L (12-78); ALBUMIN 2.2 G/DL (3.4-5.0); ALBUMIN/GLOBULIN RATIO 0.6 (1.0-2.7); ALKALINE PHOSPHATASE 189 U/L (46-116); ANION GAP 19 mmol/L (5-15); ASPARTATE AMINO TRANSFERASE 2107 U/L (15-37); BILIRUBIN,TOTAL 4.1 MG/DL (0.2-1.0); BLOOD UREA NITROGEN 86 mg/dL (7-18); CARBON DIOXIDE 18 MMOL/L (21-32); CHLORIDE 80 MMOL/L (98-107); CREATININE 5.7 MG/DL (0.55-1.30); POTASSIUM 4.6 MMOL/L (3.5-5.1)
[2018-10-21 21:30] LABS: SODIUM 116 MMOL/L (136-145)
[2018-10-21 21:31] LABS: CALCIUM 5.8 MG/DL (8.5-10.1)
[2018-10-21 21:32] LABS: BILIRUBIN,DIRECT 3.5 MG/DL (0.0-0.3)
--- NOTE | 2018-10-21 22:00 | NUR ---
NURSE NOTES: HS care rendered.Pos. chg.Backrub with Lotion.Suctioned.Due meds admin.[id number] No Cov.Seen exam. by Vidal COLE
[2018-10-21 23:12] LABS: ALANINE AMINOTRANSFERASE 883 U/L (12-78); ALBUMIN 2.2 G/DL (3.4-5.0); ALBUMIN/GLOBULIN RATIO 0.6 (1.0-2.7); ALKALINE PHOSPHATASE 186 U/L (46-116); ANION GAP 19 mmol/L (5-15); ASPARTATE AMINO TRANSFERASE 2052 U/L (15-37); BLOOD UREA NITROGEN 87 mg/dL (7-18); CARBON DIOXIDE 19 MMOL/L (21-32); CHLORIDE 80 MMOL/L (98-107); CREATININE 5.8 MG/DL (0.55-1.30); POTASSIUM 4.6 MMOL/L (3.5-5.1)
[2018-10-21 23:14] LABS: SODIUM 117 MMOL/L (136-145)
[2018-10-21 23:16] LABS: BILIRUBIN,DIRECT 3.4 MG/DL (0.0-0.3)
[2018-10-21] MEDS ORDERED: NaCl 3% 500ml 500 ML IV ONE ×2 (23:45→23:50)
[2018-10-22] VITALS (48 sets, daily range): BP systolic 88–115; BP diastolic 41–98
--- NOTE | 2018-10-22 00:05 | NUR ---
NURSE NOTES: Suctioned,Pos. chg.Neuro status same.Na level-117,Ca-6.0,called to .See order for HYPERTONIC CHANA.
[2018-10-22] MEDS: Norepinephrine Bitartrate 16 MG in D5W 500ml 484 ML IV SCH ×3 (00:18→19:49)
[2018-10-22] MEDS: Albuterol/Ipratropium 3ml neb HHN SCH ×4 (01:10→19:19)
--- NOTE | 2018-10-22 02:00 | NUR ---
NURSE NOTES: Pos.chg.suctioned,Status same.
[2018-10-22] MEDS: DOBUTamine 250mg/250ml Premix 250 ML IV SCH ×2 (02:12→12:43)
--- NOTE | 2018-10-22 04:20 | NUR ---
NURSE NOTES: Ranjit Arriaza.Blood drawn for ptt,cbc etc.cmp spec.not drawn rescheduled for 12noon R/T hypertonic vipul.still infusing.
[2018-10-22 04:30] LABS: HEMATOCRIT 31.6 % (42.0-52.0); HEMOGLOBIN 10.5 G/DL (14.2-18.0); MEAN CORPUSCULAR VOLUME 83 FL (80-99); PLATELET COUNT 106 K/UL (150-450); RED BLOOD COUNT 3.81 M/UL (4.70-6.10); RED CELL DISTRIBUTION WIDTH 18.9 % (11.6-14.8)
[2018-10-22 05:04] LABS: WHITE BLOOD COUNT 26.6 K/UL (4.8-10.8)
[2018-10-22] MEDS ORDERED: Heparin 5000 units/ml inj IV ONE (05:30)
[2018-10-22] MEDS: Heparin 25,000u/D5W 500ml 500 ML IV SCH (05:55)
[2018-10-22] MEDS ORDERED: Vancomycin 1gm/D5W 275ml IVPB ONE ×2 (06:00)
[2018-10-22] MEDS: NovoLOG Insulin Flexpen SUBQ SCH ×4 (06:30→21:06)
--- NOTE | 2018-10-22 07:04 | General Progress Note ---
Assessment/Plan Problem List: (1) CKD (chronic kidney disease) ICD Codes: N18.9 - Chronic kidney disease, unspecified SNOMED: 492932656 (2) Hypoglycemia ICD Codes: E16.2 - Hypoglycemia, unspecified SNOMED: 245217197 (3) Altered mental status ICD Codes: R41.82 - Altered mental status, unspecified SNOMED: 245860476 Assessment/Plan hypoglycemia resolved off Octreotide since yesterday morning continue glucose monitoring hypoglycemia protocol in order Subjective ROS Limited/Unobtainable: Yes Allergies: Coded Allergies: PENICILLINS (Verified Allergy, Unknown, 10/09/18) Subjective events noted intubated in ICU on pressors on TF at 40 mL/hour no hypoglycemia Item Value Date Time Bedside Blood Glucose 181 mg/dl H 10/22/18 0631 Bedside Blood Glucose 177 mg/dl H 10/21/18 2100 Bedside Blood Glucose 166 mg/dl H 10/21/18 1630 Bedside Blood Glucose 165 mg/dl H 10/21/18 1130 Bedside Blood Glucose 132 mg/dl H 10/21/18 0630 Objective Last 24 Hour Vital Signs Date Time Temp Pulse Resp B/P (MAP) Pulse Ox O2 Delivery O2 Flow Rate FiO2 10/22/18 06:00 96 20 96/44 (61) 98 10/22/18 05:30 96 20 99/43 (61) 98 10/22/18 05:15 96 23 40 10/22/18 05:00 97 20 95/41 (59) 98 10/22/18 04:30 103 20 98/56 (70) 98 10/22/18 04:00 103 10/22/18 04:00 40 10/22/18 04:00 98.7 103 20 106/47 (66) 98 10/22/18 04:00 Mechanical Ventilator Room Air 10/22/18 03:30 103 20 101/50 (67) 99 10/22/18 03:06 99 27 40 10/22/18 03:00 97 22 97/52 (67) 99 10/22/18 02:30 96 23 99/45 (63) 99 10/22/18 02:12 93/48 10/22/18 02:00 95 21 98/48 (65) 100 10/22/18 01:30 94 27 98/50 (66) 99 10/22/18 01:20 94 20 100 Mechanical Ventilator 40 10/22/18 01:10 101 24 40 10/22/18 01:10 101 23 98 Mechanical Ventilator 40 10/22/18 01:00 100 25 102/54 (70) 99 10/22/18 00:30 99 25 102/46 (64) 99 10/22/18 00:18 110/51 10/22/18 00:00 40 10/22/18 00:00 98.2 97 24 110/51 (70) 99 10/22/18 00:00 Mechanical Ventilator Room Air 10/22/18 00:00 92 10/21/18 23:30 94 26 104/49 (67) 100 10/21/18 23:00 94 25 104/65 (78) 100 10/21/18 22:39 93 29 40 10/21/18 22:30 94 27 109/57 (74) 100 10/21/18 22:00 91 27 101/50 (67) 99 10/21/18 21:30 95 20 100/44 (62) 98 10/21/18 21:00 97 24 110/54 (72) 98 10/21/18 20:53 101 26 40 10/21/18 20:30 99 21 107/45 (65) 98 10/21/18 20:00 98.1 93 26 105/49 (67) 98 10/21/18 20:00 93 10/21/18 20:00 40 10/21/18 20:00 Mechanical Ventilator Room Air 10/21/18 19:30 87 20 91/36 (54) 100 10/21/18 19:26 92 25 100 Mechanical Ventilator 40 10/21/18 19:16 93 25 100 Mechanical Ventilator 40 10/21/18 19:15 93 25 40 10/21/18 19:00 96 23 110/53 (72) 99 10/21/18 19:00 110/53 10/21/18 18:30 96 21 107/55 (72) 100 10/21/18 18:00 96 21 107/54 (71) 99 10/21/18 17:30 89 18 98/49 (65) 100 10/21/18 17:00 86 15 94/47 (63) 100 10/21/18 16:35 89 26 40 10/21/18 16:30 87 26 91/52 (65) 100 10/21/18 16:00 40 10/21/18 16:00 Mechanical Ventilator Room Air 10/21/18 16:00 85 10/21/18 16:00 98.6 87 20 98/45 (62) 100 10/21/18 15:30 87 25 92/42 (59) 100 10/21/18 15:00 96 22 115/44 (67) 100 10/21/18 14:41 96 24 40 10/21/18 14:30 96 23 122/51 (74) 100 10/21/18 14:16 93/58 10/21/18 14:00 94 22 93/58 (70) 100 10/21/18 13:30 88 20 93/52 (66) 100 10/21/18 13:19 87 23 100 Mechanical Ventilator 40 10/21/18 13:12 87 23 40 10/21/18 13:12 87 23 100 Mechanical Ventilator 40 10/21/18 13:00 86 27 100/48 (65) 100 10/21/18 12:45 86 27 111/50 (70) 100 10/21/18 12:30 86 26 97/50 (66) 100 10/21/18 12:00 40 10/21/18 12:00 85 10/21/18 12:00 86 20 102/50 (67) 100 10/21/18 12:00 Mechanical Ventilator Room Air 10/21/18 11:45 85 24 96/51 (66) 100 10/21/18 11:30 85 20 102/52 (69) 100 10/21/18 11:15 85 22 102/49 (66) 100 10/21/18 11:01 90 25 40 10/21/18 11:00 86 20 96/50 (65) 100 10/21/18 10:45 88 20 96/47 (63) 100 10/21/18 10:30 92 20 104/45 (64) 100 10/21/18 10:15 87 20 97/48 (64) 100 10/21/18 10:00 94 20 103/65 (78) 100 10/21/18 09:45 95 19 107/47 (67) 99 10/21/18 09:30 96 22 104/53 (70) 100 10/21/18 09:15 97 22 105/54 (71) 100 10/21/18 09:00 97 22 108/53 (71) 100 10/21/18 08:49 93 24 40 10/21/18 08:45 97 20 106/62 (77) 100 10/21/18 08:30 96 21 110/59 (76) 100 10/21/18 08:15 96 24 101/50 (67) 100 10/21/18 08:00 97 10/21/18 08:00 98.0 95 23 101/60 (74) 100 10/21/18 08:00 40 10/21/18 08:00 101/64 10/21/18 08:00 Mechanical Ventilator Room Air 10/21/18 07:45 94 22 109/59 (76) 96 10/21/18 07:39 94 20 100 Mechanical Ventilator 40 10/21/18 07:31 98 23 100 Mechanical Ventilator 40 10/21/18 07:30 97 21 112/55 (74) 100 10/21/18 07:30 95 23 40 10/21/18 07:15 96 23 102/63 (76) 100 Intake and Output 10/21/18 10/22/18 19:00 07:00 Intake Total 1952.686 ml 1966.103 ml Balance 1952.686 ml 1966.103 ml Free Water 90 ml 150 ml IV Total 1382.686 ml 1376.103 ml Tube Feeding 480 ml 440 ml Laboratory Tests 10/21/18 20:50: Sodium Level 116*L, Potassium Level 4.6, Chloride Level 80L, Carbon Dioxide Level 18L, Anion Gap 19H, Blood Urea Nitrogen 86H, Creatinine 5.7H, Estimat Glomerular Filtration Rate , Glucose Level 180H, Calcium Level 5.8*L, Total Bilirubin 4.1H, Direct Bilirubin 3.5H, Aspartate Amino Transf (AST/SGOT) 2107H, Alanine Aminotransferase (ALT/SGPT) 888H, Alkaline Phosphatase 189H, Total Protein 6.0L, Albumin 2.2L, Globulin 3.8, Albumin/Globulin Ratio 0.6L 10/21/18 21:00: Sodium Level 117*L, Potassium Level 4.6, Chloride Level 80L, Carbon Dioxide Level 19L, Anion Gap 19H, Blood Urea Nitrogen 87H, Creatinine 5.8H, Estimat Glomerular Filtration Rate , Glucose Level 135H, Calcium Level 6.0L, Total Bilirubin 4.0H, Direct Bilirubin 3.4H, Aspartate Amino Transf (AST/SGOT) 2052H, Alanine Aminotransferase (ALT/SGPT) 883H, Alkaline Phosphatase 186H, Total Protein 5.8L, Albumin 2.2L, Globulin 3.6, Albumin/Globulin Ratio 0.6L 10/22/18 04:00: White Blood Count 26.6*H, Red Blood Count 3.81L, Hemoglobin 10.5L, Hematocrit 31.6L, Mean Corpuscular Volume 83, Mean Corpuscular Hemoglobin 27.5, Mean Corpuscular Hemoglobin Concent 33.2, Red Cell Distribution Width 18.9H, Platelet Count 106L, Mean Platelet Volume 8.8, Neutrophils (%) (Auto) , Lymphocytes (%) (Auto) , Monocytes (%) (Auto) , Eosinophils (%) (Auto) , Basophils (%) (Auto) , Neutrophils % (Manual) [Pending], Lymphocytes % (Manual) [Pending], Platelet Estimate [Pending], Platelet Morphology [Pending], Activated Partial Thromboplast Time 62H, Random Vancomycin Level 16.6 Height (Feet): 5 Height (Inches): 2.00 Weight (Pounds): 148 General Appearance: moderate distress Neck: normal alignment Cardiovascular: regular rhythm Respiratory/Chest: decreased breath sounds Abdomen: normal bowel sounds Objective Current Medications Medications (Trade) Dose Ordered Sig/Ashely Route PRN Reason Start Time Stop Time Status Last Admin Dose Admin Acetaminophen (Tylenol) 650 mg Q6H PRN ORAL Mild Pain/Temp > 100.5 10/18/18 16:30 11/08/18 04:23 Albuterol/ Ipratropium (Albuterol/ Ipratropium) 3 ml Q4H PRN HHN Shortness of Breath 10/18/18 17:30 10/23/18 13:29 Albuterol/ Ipratropium (Albuterol/ Ipratropium) 3 ml Q6HRT HHN 10/18/18 19:00 10/23/18 18:59 10/22/18 01:10 Aspirin (Ecotrin) 81 mg DAILY ORAL 10/19/18 09:00 11/09/18 08:59 10/21/18 08:13 Atorvastatin Calcium (Lipitor) 40 mg BEDTIME ORAL 10/18/18 21:00 11/09/18 20:59 10/21/18 21:08 Calcium Carbonate (Tums) 500 mg BID GT 10/20/18 18:00 11/09/18 08:59 10/21/18 17:28 Chlorhexidine Gluconate (Anai-Hex 2%) 1 applic DAILY@2000 TOPIC 10/18/18 20:00 11/12/18 19:59 10/21/18 19:31 Dextrose 1,000 ml @ 30 mls/hr Q24H IV 10/19/18 08:15 11/18/18 08:14 10/20/18 07:50 Dextrose (Dextrose 50%) 25 ml Q30M PRN IV Hypoglycemia 10/18/18 16:45 11/16/18 08:44 Dextrose (Dextrose 50%) 50 ml Q30M PRN IV Hypoglycemia 10/18/18 16:45 11/16/18 08:44 10/19/18 06:26 Dobutamine HCl 250 ml @ 10.05 mls/ hr Q24H IV 10/19/18 11:40 11/18/18 11:39 10/22/18 02:12 Docusate Sodium (Colace) 100 mg TWICE A DAY GT 10/20/18 18:00 11/09/18 08:59 10/21/18 17:28 Dopamine HCl/ Dextrose 250 ml @ 0 mls/hr Q24H IV 10/19/18 12:45 11/18/18 12:44 10/20/18 17:43 Haloperidol Lactate (Haldol) 5 mg Q6H PRN IM Agitation 10/18/18 17:00 11/17/18 16:59 Heparin Sodium/ Dextrose 500 ml @ 6.713 mls/ hr ADJUST PER PROTOCOL IV 10/22/18 05:15 11/19/18 07:44 10/22/18 05:55 Insulin Aspart (NovoLOG) BEFORE MEALS AND HS SUBQ 10/18/18 16:30 11/16/18 11:29 Latanoprost (Xalatan) 1 drop BEDTIME BOTH EYES 10/18/18 21:00 11/10/18 20:59 10/21/18 21:05 Meropenem 500 mg/ Sodium Chloride 50 ml @ 100 mls/hr Q24HRS IVPB 10/20/18 00:00 10/25/18 00:00 10/21/18 23:50 Norepinephrine Bitartrate 16 mg/ Dextrose 500 ml @ 0 mls/hr Q24H IV 10/20/18 18:00 11/19/18 17:59 10/22/18 00:18 Octreotide Acetate (SandoSTATIN) 50 mcg Q12H SUBQ 10/20/18 12:00 11/18/18 07:59 10/21/18 23:50 Ondansetron HCl (Zofran) 4 mg Q8H PRN IVP Nausea & Vomiting 10/18/18 17:00 11/17/18 16:59 Pantoprazole (Protonix) 40 mg ACBREAKFAST ORAL 10/19/18 06:30 11/09/18 08:59 10/22/18 05:55 Polymyxin B Sulfate [id number] units/Dextrose 250 ml @ 250 mls/hr EVERY 12 HOURS IVPB 10/20/18 09:00 10/27/18 08:59 10/21/18 21:06 Promethazine HCl (Phenergan [place]) 6.25 mg Q6H PRN ORAL For Cough 10/18/18 16:45 11/10/18 04:32 Sodium Chloride 500 ml @ 50 mls/hr ONCE ONCE IV 10/21/18 23:45 10/22/18 09:44 10/21/18 23:54 Vancomycin HCl (Vanco rx to dose) 1 ea DAILY PRN MISC Per rx protocol 10/19/18 23:30 11/18/18 23:29 Vancomycin HCl 1 gm/Dextrose 275 ml @ 183.708 mls/hr NOW ONCE IVPB 10/22/18 06:00 10/22/18 07:29 10/22/18 06:29 Barry Schmitt MD Oct 22, 2018 07:04
[2018-10-22] MEDS: POLYMYXIN B SULFATE IVPB SCH ×2 (09:24→21:02)
[2018-10-22] MEDS: D5W IVPB SCH ×2 (09:24→21:02)
[2018-10-22] MEDS: Tums 500mg GT SCH ×2 (09:25→17:59)
[2018-10-22] MEDS: Docusate 100mg/10ml Liq GT SCH ×2 (09:25→17:58)
[2018-10-22] MEDS: Aspirin EC 81mg tab ORAL SCH (09:25)
--- NOTE | 2018-10-22 09:45 | NUR ---
NURSE NOTES: Morning medication given to patient thorough NG-tube and IV line, patient remains on levophed drip, dobutamine drip, heparin drip and d5w at 30ml/hr. will continue to monitor patient.
--- NOTE | 2018-10-22 12:05 | NUR ---
NURSE NOTES: PTT blood sample obtained and sent to the lab along with a CMP, patient remains on heparin at 5units/kg/hr, patient also has dobutamine at 10.05 ml at 2.5mcg/kg/min and Levophed at 30mcg/min at 56.25ml/hr to maintain Bp above 90SBP, patient pain is o using the FLACC scale, he remains obtunded, patient when shaken is able to open eyes and track from right to left with no ability to focus on an object, he has a right upper IJ running D5W at 30ml/hr. no hemodialysis is ordered at this time. awaiting for lab results top adjust heparin drip. no evidence of bleeding noted from [place] or IV site. patient feeding placed on hold for US of the abdominal to be preformed, will continue plan of care.
[2018-10-22] MEDS: SandoSTATIN 50mcg Inj SUBQ SCH (12:42)
[2018-10-22] MEDS: DOPamine 400mg/250ml 250 ML IV SCH (12:45)
[2018-10-22 13:00] LABS: ANION GAP 16 mmol/L (5-15); BLOOD UREA NITROGEN 88 mg/dL (7-18); CARBON DIOXIDE 18 MMOL/L (21-32); CHLORIDE 82 MMOL/L (98-107); CREATININE 5.8 MG/DL (0.55-1.30); POTASSIUM 4.3 MMOL/L (3.5-5.1)
[2018-10-22 13:01] LABS: SODIUM 116 MMOL/L (136-145)
--- NOTE | 2018-10-22 13:10 | NUR ---
NURSE NOTES: PTT resulted at 80 and heparin drip remains at 5units/kg/hr at rate of 6.713ml/hr. next PTT is to be drawn at 0400 on 10/23/18. also Dr. Porter called to inform NA is at 116 after administration of 3% NS. left message at doctors extension, awaiting call back.
--- NOTE | 2018-10-22 13:53 | Neurology Progress Note ---
Interim History Interim History Interim History Mr. Gann continues to be poorly responsive. He does open his eyes on loud vocal stimulation. He continues to move his left side more then the right. He continues to be on pressors. He continues to be intubated and artificially ventilated. He continues to be acutely ill. There has been no significant change in his neurologic status. Review of Systems Neuro Review of Systems Unable to obtain. Objective Physical Exam Last Vital Signs Date Time Temp Pulse Resp B/P (MAP) Pulse Ox O2 Delivery O2 Flow Rate FiO2 10/22/18 12:43 96/48 10/22/18 12:40 96 23 100 Mechanical Ventilator 40 10/22/18 12:00 98.7 10/20/18 16:23 40.0 Laboratory Tests Test 10/21/18 20:50 10/21/18 21:00 10/22/18 04:00 10/22/18 12:05 Sodium Level 116 MMOL/L (136-145) *L 117 MMOL/L (136-145) *L 116 MMOL/L (136-145) *L Potassium Level 4.6 MMOL/L (3.5-5.1) 4.6 MMOL/L (3.5-5.1) 4.3 MMOL/L (3.5-5.1) Chloride Level 80 MMOL/L (98-107) L 80 MMOL/L (98-107) L 82 MMOL/L (98-107) L Carbon Dioxide Level 18 MMOL/L (21-32) L 19 MMOL/L (21-32) L 18 MMOL/L (21-32) L Anion Gap 19 mmol/L (5-15) H 19 mmol/L (5-15) H 16 mmol/L (5-15) H Blood Urea Nitrogen 86 mg/dL (7-18) H 87 mg/dL (7-18) H 88 mg/dL (7-18) H Creatinine 5.7 MG/DL (0.55-1.30) H 5.8 MG/DL (0.55-1.30) H 5.8 MG/DL (0.55-1.30) H Estimat Glomerular Filtration Rate mL/min (>60) mL/min (>60) mL/min (>60) Glucose Level 180 MG/DL (74-106) H 135 MG/DL (74-106) H 185 MG/DL (74-106) H Calcium Level 5.8 MG/DL (8.5-10.1) *L 6.0 MG/DL (8.5-10.1) L 6.0 MG/DL (8.5-10.1) L Total Bilirubin 4.1 MG/DL (0.2-1.0) H 4.0 MG/DL (0.2-1.0) H Direct Bilirubin 3.5 MG/DL (0.0-0.3) H 3.4 MG/DL (0.0-0.3) H Aspartate Amino Transf (AST/SGOT) 2107 U/L (15-37) H 2052 U/L (15-37) H Alanine Aminotransferase (ALT/SGPT) 888 U/L (12-78) H 883 U/L (12-78) H Alkaline Phosphatase 189 U/L (46-116) H 186 U/L (46-116) H Total Protein 6.0 G/DL (6.4-8.2) L 5.8 G/DL (6.4-8.2) L Albumin 2.2 G/DL (3.4-5.0) L 2.2 G/DL (3.4-5.0) L Globulin 3.8 g/dL 3.6 g/dL Albumin/Globulin Ratio 0.6 (1.0-2.7) L 0.6 (1.0-2.7) L White Blood Count 26.6 K/UL (4.8-10.8) *H Red Blood Count 3.81 M/UL (4.70-6.10) L Hemoglobin 10.5 G/DL (14.2-18.0) L Hematocrit 31.6 % (42.0-52.0) L Mean Corpuscular Volume 83 FL (80-99) Mean Corpuscular Hemoglobin 27.5 PG (27.0-31.0) Mean Corpuscular Hemoglobin Concent 33.2 G/DL (32.0-36.0) Red Cell Distribution Width 18.9 % (11.6-14.8) H Platelet Count 106 K/UL (150-450) L Mean Platelet Volume 8.8 FL (6.5-10.1) Neutrophils (%) (Auto) % (45.0-75.0) Lymphocytes (%) (Auto) % (20.0-45.0) Monocytes (%) (Auto) % (1.0-10.0) Eosinophils (%) (Auto) % (0.0-3.0) Basophils (%) (Auto) % (0.0-2.0) Differential Total Cells Counted 100 Neutrophils % (Manual) 93 % (45-75) H Lymphocytes % (Manual) 4 % (20-45) L Monocytes % (Manual) 3 % (1-10) Eosinophils % (Manual) 0 % (0-3) Basophils % (Manual) 0 % (0-2) Band Neutrophils 0 % (0-8) Nucleated Red Blood Cells 7 /100 WBC Platelet Estimate Decreased L Platelet Morphology Normal Anisocytosis 1+ Garibaldi Cells 1+ Activated Partial Thromboplast Time 62 SEC (23-33) H 80 SEC (23-33) H Random Vancomycin Level 16.6 ug/mL Neurologic Exam Objective PHYSICAL EXAMINATION: GENERAL: He is a well-developed, relatively well-nourished gentleman , lying in an ICU bed, connected to a ventilator through an orotracheal tube. HEAD: Normocephalic and atraumatic. NECK: No neck rigidity was observed. EENT: Benign. NEUROLOGICAL EXAMINATION: MENTAL STATUS EXAMINATION: He opened his eyes on loud vocal stimuli. He however did not follow any commands. He was unable to communicate. Further mental status testing was impossible. SPEECH: Could not be tested. LANGUAGE: Could not be tested. CRANIAL NERVE EXAMINATION: II: He did not blink to threat. III, IV & : The external ocular movements were present on oculocephalic maneuvers. The pupils were 3 mm in diameter, equal, round, regular, and did not react to light. V & VII: The corneal reflexes were present bilaterally, but significantly diminished on the right side compared to the left. VIII: He did not respond to sounds and had no nystagmus. IX & X: The gag reflex was absent on manipulating the endotracheal tube. XI: The sternocleidomastoids and trapezii did not function. XII: Could not be tested adequately. MOTOR SYSTEM: The tone was normal in all four extremities. Examination of muscle mass revealed no focal wasting. Examination of power was impossible to perform on individual muscle groups; however, when deep painful stimuli were applied, he moved all four extremities. He exhibited purposeful withdrawal of the left upper extremity but non- purposeful withdrawal of the right upper extremity. In addition withdrawal was weaker on the right than on the left. SENSORY EXAMINATION: He responded appropriately to deep pain. He was unable to cooperate for other sensory modalities. REFLEXES: Trace+ and bilaterally symmetrical at the biceps, triceps, brachioradialis. 0 at both knees and ankles. The plantar response was extensor on the right and mute on the left. COORDINATION, STANCE & GAIT: Could not be tested. Impression/Recommendations Diagnostic Impression 1. Mr. Marla Gann is an 83-year-old, gentleman, of unknown handedness, with a past history of multiple medical problems including hypertension, diabetes mellitus, dyslipidemia, aortic stenosis, vitamin B12 deficiency, vitamin D deficiency, coronary artery disease, congestive heart failure, and intestinal pathology. He was hospitalized on 10/09/2018 for an altered mental state related to multiple metabolic imbalances. He did improve, but then in the hospital, he has had multiple further episodes of hypoglycemia. On the morning of 10/19/18, his blood sugar dropped to 22. He has also had problems with his respiratory function, progressive renal dysfunction, and on the morning of 10/19/18 was noted to have weakness in his right upper extremity, this problem continues. 2. He continues to be poorly responsive. He does open his eyes on loud vocal stimulation. He continues to move his left side more then the right. He continues to be on pressors. He continues to be intubated and artificially ventilated. He continues to be acutely ill. There has been no significant change in his neurologic status. 3. On neurological examination, at this time, he opens his eyes on loud vocal stimuli, he however does not follow any commands. He is unable to communicate and further mental status testing is impossible. 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 His deep tendon reflexes are globally diminished in the upper extremities and lost in the lower extremities. His plantar response is extensor on the right and mute on the left. 4. His laboratory data on my initial evluation revealed that his WBC count was elevated to 16,000. His hemoglobin was low at 7.2 G. His arterial blood gas revealed a pH of 7.18, a pCO2 of 43, and a pO2 of 112. His chemistry panel revealed a sodium of 133, potassium of 5.3, chloride of 91, BUN at 89, creatinine at 5.2, and blood glucose at 22. 5. His EEG done on 10/19/18 revealed a moderately severe encephalopathy with a definite toxic/metabolic component. 6. The CT of the brain was benign for acute pathology. 7. His latest laboratory tests reveal that his leukocytosis is worse with a WBC count of 24,200. He is severely hyponatremic with a Na of 121 and chloride of 83. His BUN is elevated at 81 with a creatinine of 5.5 8. The patient's history, neurological examination, and laboratory data are most compatible with a significant toxic metabolic encephalopathy that brought him into the hospital, and now possibly an acute cerebral lesion causing the right hemiparesis. Recommendations 1. Continue present management. 2. Continue to correct toxic metabolic imbalances. 3. Try to keep the blood pressure >110 mmHg systolic. 4. When possible get MRI of brain. 5. Observe closely in ICU setting. Abram Johnson M.D., M.S.P.H. Abram Johnson MD Oct 22, 2018 13:53
--- NOTE | 2018-10-22 14:05 | Pulmonolgy Critical Care Note ---
Critical Care - Asmt/Plan Problems: (1) Respiratory failure, acute (2) Ventilator dependence (3) CHF (congestive heart failure) (4) CAD (coronary artery disease) (5) NSTEMI (non-ST elevated myocardial infarction) (6) Respiratory acidosis (7) Hemoptysis (8) Hypoglycemia (9) Pneumonia (10) Hypotension (11) Elevated d-dimer (12) Acute kidney injury superimposed on CKD Assessment & Plan: S/P initiation of HD (13) Hyponatremia (14) Sepsis Respiratory: monitor respiratory rate, adjust FIO2, other - HHN Cardiac: continue pressors - NE, Dobut, add Vaso 0.04, continue to monitor HR/ BP Renal: keep IV fluid - 3% NS 50/hr for [address] Porter, check electrolytes, other - Unstable for HD Infectious Disease: check cultures, continue antibiotics - Duong/Vanco Gastrointestinal: hold feedings Endocrine: monitor blood sugar, other - F/U ENDO recs Hematologic: monitor H/H Prophylaxis: Protonix, Heparin - IVUH' Disposition: keep in ICU Time Spent (Minutes): 40 Notes Reviewed: ballistic expert, cardio, renal, ID, GI, neuro, other - ENDO Discussed with: nurses, consultants, other - Prognosis poor Critical Care - Objective Last 24 Hour Vital Signs Date Time Temp Pulse Resp B/P (MAP) Pulse Ox O2 Delivery O2 Flow Rate FiO2 10/22/18 12:43 96/48 10/22/18 12:40 96 23 100 Mechanical Ventilator 40 10/22/18 12:35 96 24 100 Mechanical Ventilator 40 10/22/18 12:35 96 27 40 10/22/18 12:30 92 20 96/48 (64) 100 10/22/18 12:00 98.7 97 28 103/50 (67) 100 10/22/18 12:00 Room Air 10/22/18 12:00 103/50 10/22/18 12:00 40 10/22/18 12:00 95 10/22/18 11:30 96 24 97/48 (64) 100 10/22/18 11:05 98 28 40 10/22/18 11:00 97 27 100/50 (67) 100 10/22/18 10:30 96 26 94/49 (64) 100 10/22/18 10:00 98 26 98/47 (64) 100 10/22/18 09:30 98 25 107/44 (65) 100 10/22/18 09:24 92/43 10/22/18 09:00 96 25 92/43 (59) 100 10/22/18 08:45 96 25 40 10/22/18 08:30 97 25 106/61 (76) 100 10/22/18 08:00 97 10/22/18 08:00 98.8 97 25 103/50 (67) 100 10/22/18 08:00 40 10/22/18 08:00 Room Air 10/22/18 07:30 97 26 101/51 (68) 99 10/22/18 07:06 98 20 100 Mechanical Ventilator 40 10/22/18 07:05 102 26 100 Mechanical Ventilator 40 10/22/18 07:03 102 27 40 10/22/18 07:00 105 25 114/51 (72) 100 10/22/18 06:30 106 25 100/52 (68) 99 10/22/18 06:00 96 20 96/44 (61) 98 10/22/18 05:30 96 20 99/43 (61) 98 10/22/18 05:15 96 23 40 10/22/18 05:00 97 20 95/41 (59) 98 10/22/18 04:30 103 20 98/56 (70) 98 10/22/18 04:00 103 10/22/18 04:00 40 10/22/18 04:00 98.7 103 20 106/47 (66) 98 10/22/18 04:00 Mechanical Ventilator Room Air 10/22/18 03:30 103 20 101/50 (67) 99 10/22/18 03:06 99 27 40 10/22/18 03:00 97 22 97/52 (67) 99 10/22/18 02:30 96 23 99/45 (63) 99 10/22/18 02:12 93/48 10/22/18 02:00 95 21 98/48 (65) 100 10/22/18 01:30 94 27 98/50 (66) 99 10/22/18 01:20 94 20 100 Mechanical Ventilator 40 10/22/18 01:10 101 24 40 10/22/18 01:10 101 23 98 Mechanical Ventilator 40 10/22/18 01:00 100 25 102/54 (70) 99 10/22/18 00:30 99 25 102/46 (64) 99 10/22/18 00:18 110/51 10/22/18 00:00 40 10/22/18 00:00 98.2 97 24 110/51 (70) 99 10/22/18 00:00 Mechanical Ventilator Room Air 10/22/18 00:00 92 10/21/18 23:30 94 26 104/49 (67) 100 10/21/18 23:00 94 25 104/65 (78) 100 10/21/18 22:39 93 29 40 10/21/18 22:30 94 27 109/57 (74) 100 10/21/18 22:00 91 27 101/50 (67) 99 10/21/18 21:30 95 20 100/44 (62) 98 10/21/18 21:00 97 24 110/54 (72) 98 10/21/18 20:53 101 26 40 10/21/18 20:30 99 21 107/45 (65) 98 10/21/18 20:00 98.1 93 26 105/49 (67) 98 10/21/18 20:00 93 10/21/18 20:00 40 10/21/18 20:00 Mechanical Ventilator Room Air 10/21/18 19:30 87 20 91/36 (54) 100 10/21/18 19:26 92 25 100 Mechanical Ventilator 40 10/21/18 19:16 93 25 100 Mechanical Ventilator 40 10/21/18 19:15 93 25 40 10/21/18 19:00 96 23 110/53 (72) 99 10/21/18 19:00 110/53 10/21/18 18:30 96 21 107/55 (72) 100 10/21/18 18:00 96 21 107/54 (71) 99 10/21/18 17:30 89 18 98/49 (65) 100 10/21/18 17:00 86 15 94/47 (63) 100 10/21/18 16:35 89 26 40 10/21/18 16:30 87 26 91/52 (65) 100 10/21/18 16:00 40 10/21/18 16:00 Mechanical Ventilator Room Air 10/21/18 16:00 85 10/21/18 16:00 98.6 87 20 98/45 (62) 100 10/21/18 15:30 87 25 92/42 (59) 100 10/21/18 15:00 96 22 115/44 (67) 100 10/21/18 14:41 96 24 40 10/21/18 14:30 96 23 122/51 (74) 100 10/21/18 14:16 93/58 10/21/18 14:00 94 22 93/58 (70) 100 Status: obtunded, other - intubated Condition: critical HEENT: atraumatic, normocephalic Lungs: rhonchi Heart: HR/BP unstable Abdomen: soft, non-tender, active bowel sounds Extremities: edema - 2+ Micro: Microbiology Date/Time Source Procedure Growth Status 10/20/18 06:10 Blood Blood Culture - Preliminary NO GROWTH AFTER 24 HOURS Resulted 10/20/18 06:00 Blood Blood Culture - Preliminary NO GROWTH AFTER 24 HOURS Resulted 10/20/18 10:00 Sputum Induced Gram Stain - Final Resulted 10/20/18 10:00 Sputum Induced Sputum Culture Pending Resulted Accucheck: 177 Critical Care - Subjective ROS Limited/Unobtainable: Yes ICU Day: 5 Intubation Day: 4 Interval Events: Na 116 WCt inc LFT's worse Unable to dialyze Condition: critical IV Access: PICC, central - R Ij Hugh EKG Rhythm: Sinus Rhythm FI02: 40 Vent Support Breath Rate: 20 Vent Support Mode: AC Vent Tidal Volume: 500 Sputum Amount: Small PEEP: 5.0 PIP: 31 Secretions: small thin Fluids: S/P 3% 500 - finished, Na 116 Drips: NE 30, DOBUT 2.5, IVUH Tube Feeding Amount: 0 I&O: Intake and Output 10/21/18 10/22/18 18:59 06:59 Intake Total 1957.721 ml 2406.431 ml Balance 1957.721 ml 2406.431 ml Free Water 90 ml 150 ml IV Total 1387.721 ml 1776.431 ml Tube Feeding 480 ml 480 ml Subjective: ZACHARY CXR: No change Head CT neg ET-Tube: 7.5 ET Position: 23 Labs: Laboratory Tests Test 10/21/18 20:50 10/21/18 21:00 10/22/18 04:00 10/22/18 12:05 Sodium Level 116 MMOL/L (136-145) *L 117 MMOL/L (136-145) *L 116 MMOL/L (136-145) *L Potassium Level 4.6 MMOL/L (3.5-5.1) 4.6 MMOL/L (3.5-5.1) 4.3 MMOL/L (3.5-5.1) Chloride Level 80 MMOL/L (98-107) L 80 MMOL/L (98-107) L 82 MMOL/L (98-107) L Carbon Dioxide Level 18 MMOL/L (21-32) L 19 MMOL/L (21-32) L 18 MMOL/L (21-32) L Anion Gap 19 mmol/L (5-15) H 19 mmol/L (5-15) H 16 mmol/L (5-15) H Blood Urea Nitrogen 86 mg/dL (7-18) H 87 mg/dL (7-18) H 88 mg/dL (7-18) H Creatinine 5.7 MG/DL (0.55-1.30) H 5.8 MG/DL (0.55-1.30) H 5.8 MG/DL (0.55-1.30) H Estimat Glomerular Filtration Rate mL/min (>60) mL/min (>60) mL/min (>60) Glucose Level 180 MG/DL (74-106) H 135 MG/DL (74-106) H 185 MG/DL (74-106) H Calcium Level 5.8 MG/DL (8.5-10.1) *L 6.0 MG/DL (8.5-10.1) L 6.0 MG/DL (8.5-10.1) L Total Bilirubin 4.1 MG/DL (0.2-1.0) H 4.0 MG/DL (0.2-1.0) H Direct Bilirubin 3.5 MG/DL (0.0-0.3) H 3.4 MG/DL (0.0-0.3) H Aspartate Amino Transf (AST/SGOT) 2107 U/L (15-37) H 2052 U/L (15-37) H Alanine Aminotransferase (ALT/SGPT) 888 U/L (12-78) H 883 U/L (12-78) H Alkaline Phosphatase 189 U/L (46-116) H 186 U/L (46-116) H Total Protein 6.0 G/DL (6.4-8.2) L 5.8 G/DL (6.4-8.2) L Albumin 2.2 G/DL (3.4-5.0) L 2.2 G/DL (3.4-5.0) L Globulin 3.8 g/dL 3.6 g/dL Albumin/Globulin Ratio 0.6 (1.0-2.7) L 0.6 (1.0-2.7) L White Blood Count 26.6 K/UL (4.8-10.8) *H Red Blood Count 3.81 M/UL (4.70-6.10) L Hemoglobin 10.5 G/DL (14.2-18.0) L Hematocrit 31.6 % (42.0-52.0) L Mean Corpuscular Volume 83 FL (80-99) Mean Corpuscular Hemoglobin 27.5 PG (27.0-31.0) Mean Corpuscular Hemoglobin Concent 33.2 G/DL (32.0-36.0) Red Cell Distribution Width 18.9 % (11.6-14.8) H Platelet Count 106 K/UL (150-450) L Mean Platelet Volume 8.8 FL (6.5-10.1) Neutrophils (%) (Auto) % (45.0-75.0) Lymphocytes (%) (Auto) % (20.0-45.0) Monocytes (%) (Auto) % (1.0-10.0) Eosinophils (%) (Auto) % (0.0-3.0) Basophils (%) (Auto) % (0.0-2.0) Differential Total Cells Counted 100 Neutrophils % (Manual) 93 % (45-75) H Lymphocytes % (Manual) 4 % (20-45) L Monocytes % (Manual) 3 % (1-10) Eosinophils % (Manual) 0 % (0-3) Basophils % (Manual) 0 % (0-2) Band Neutrophils 0 % (0-8) Nucleated Red Blood Cells 7 /100 WBC Platelet Estimate Decreased L Platelet Morphology Normal Anisocytosis 1+ Indra Cells 1+ Activated Partial Thromboplast Time 62 SEC (23-33) H 80 SEC (23-33) H Random Vancomycin Level 16.6 ug/mL Chidi Bourne MD Oct 22, 2018 14:04
[2018-10-22] MEDS ORDERED: NaCl 3% 500ml 500 ML IV ONE ×2 (14:07→15:00)
--- NOTE | 2018-10-22 14:15 | NUR ---
NURSE NOTES: Dr. Porter updated on patient condition at the bedside, reminded kindly to leaving a message of patient sodium level of 116, he was made aware and spoke with Dr. Bourne for additional order of 3% NS to be given. will follow orders.
--- NOTE | 2018-10-22 14:39 | Nephrology Progress Note ---
Assessment/Plan Problem List: (1) Acute kidney injury superimposed on CKD Assessment: no recovery (2) CHF (congestive heart failure) (3) NSTEMI (non-ST elevated myocardial infarction) (4) Hypotension (5) Pneumonia (6) Hypoglycemia (7) Respiratory failure, acute (8) Sepsis (9) Hyponatremia Assessment: worse Assessment POOR PROGNOSIS Plan HD on hold because of low BP Discussed with Dr Bourne and RN continue pressors abxs per ID follow labs Vent support 3 % saline Subjective Subjective still on maxim dose of Levophed Objective Objective Last 24 Hour Vital Signs Date Time Temp Pulse Resp B/P (MAP) Pulse Ox O2 Delivery O2 Flow Rate FiO2 10/22/18 12:43 96/48 10/22/18 12:40 96 23 100 Mechanical Ventilator 40 10/22/18 12:35 96 24 100 Mechanical Ventilator 40 10/22/18 12:35 96 27 40 10/22/18 12:30 92 20 96/48 (64) 100 10/22/18 12:00 98.7 97 28 103/50 (67) 100 10/22/18 12:00 Room Air 10/22/18 12:00 103/50 10/22/18 12:00 40 10/22/18 12:00 95 10/22/18 11:30 96 24 97/48 (64) 100 10/22/18 11:05 98 28 40 10/22/18 11:00 97 27 100/50 (67) 100 10/22/18 10:30 96 26 94/49 (64) 100 10/22/18 10:00 98 26 98/47 (64) 100 10/22/18 09:30 98 25 107/44 (65) 100 10/22/18 09:24 92/43 10/22/18 09:00 96 25 92/43 (59) 100 10/22/18 08:45 96 25 40 10/22/18 08:30 97 25 106/61 (76) 100 10/22/18 08:00 97 10/22/18 08:00 98.8 97 25 103/50 (67) 100 10/22/18 08:00 40 10/22/18 08:00 Room Air 10/22/18 07:30 97 26 101/51 (68) 99 10/22/18 07:06 98 20 100 Mechanical Ventilator 40 10/22/18 07:05 102 26 100 Mechanical Ventilator 40 10/22/18 07:03 102 27 40 10/22/18 07:00 105 25 114/51 (72) 100 10/22/18 06:30 106 25 100/52 (68) 99 10/22/18 06:00 96 20 96/44 (61) 98 10/22/18 05:30 96 20 99/43 (61) 98 10/22/18 05:15 96 23 40 10/22/18 05:00 97 20 95/41 (59) 98 10/22/18 04:30 103 20 98/56 (70) 98 10/22/18 04:00 103 10/22/18 04:00 40 10/22/18 04:00 98.7 103 20 106/47 (66) 98 10/22/18 04:00 Mechanical Ventilator Room Air 10/22/18 03:30 103 20 101/50 (67) 99 10/22/18 03:06 99 27 40 10/22/18 03:00 97 22 97/52 (67) 99 10/22/18 02:30 96 23 99/45 (63) 99 10/22/18 02:12 93/48 10/22/18 02:00 95 21 98/48 (65) 100 10/22/18 01:30 94 27 98/50 (66) 99 10/22/18 01:20 94 20 100 Mechanical Ventilator 40 10/22/18 01:10 101 24 40 10/22/18 01:10 101 23 98 Mechanical Ventilator 40 10/22/18 01:00 100 25 102/54 (70) 99 10/22/18 00:30 99 25 102/46 (64) 99 10/22/18 00:18 110/51 10/22/18 00:00 40 10/22/18 00:00 98.2 97 24 110/51 (70) 99 10/22/18 00:00 Mechanical Ventilator Room Air 10/22/18 00:00 92 10/21/18 23:30 94 26 104/49 (67) 100 10/21/18 23:00 94 25 104/65 (78) 100 10/21/18 22:39 93 29 40 10/21/18 22:30 94 27 109/57 (74) 100 10/21/18 22:00 91 27 101/50 (67) 99 10/21/18 21:30 95 20 100/44 (62) 98 10/21/18 21:00 97 24 110/54 (72) 98 10/21/18 20:53 101 26 40 10/21/18 20:30 99 21 107/45 (65) 98 10/21/18 20:00 98.1 93 26 105/49 (67) 98 10/21/18 20:00 93 10/21/18 20:00 40 10/21/18 20:00 Mechanical Ventilator Room Air 10/21/18 19:30 87 20 91/36 (54) 100 10/21/18 19:26 92 25 100 Mechanical Ventilator 40 10/21/18 19:16 93 25 100 Mechanical Ventilator 40 10/21/18 19:15 93 25 40 10/21/18 19:00 96 23 110/53 (72) 99 10/21/18 19:00 110/53 10/21/18 18:30 96 21 107/55 (72) 100 10/21/18 18:00 96 21 107/54 (71) 99 10/21/18 17:30 89 18 98/49 (65) 100 10/21/18 17:00 86 15 94/47 (63) 100 10/21/18 16:35 89 26 40 10/21/18 16:30 87 26 91/52 (65) 100 10/21/18 16:00 40 10/21/18 16:00 Mechanical Ventilator Room Air 10/21/18 16:00 85 10/21/18 16:00 98.6 87 20 98/45 (62) 100 10/21/18 15:30 87 25 92/42 (59) 100 10/21/18 15:00 96 22 115/44 (67) 100 10/21/18 14:41 96 24 40 Intake and Output 10/21/18 10/22/18 19:00 07:00 Intake Total 1952.686 ml 2734.117 ml Balance 1952.686 ml 2734.117 ml Free Water 90 ml 150 ml IV Total 1382.686 ml 2104.117 ml Tube Feeding 480 ml 480 ml Laboratory Tests 10/21/18 20:50: Sodium Level 116*L, Potassium Level 4.6, Chloride Level 80L, Carbon Dioxide Level 18L, Anion Gap 19H, Blood Urea Nitrogen 86H, Creatinine 5.7H, Estimat Glomerular Filtration Rate , Glucose Level 180H, Calcium Level 5.8*L, Total Bilirubin 4.1H, Direct Bilirubin 3.5H, Aspartate Amino Transf (AST/SGOT) 2107H, Alanine Aminotransferase (ALT/SGPT) 888H, Alkaline Phosphatase 189H, Total Protein 6.0L, Albumin 2.2L, Globulin 3.8, Albumin/Globulin Ratio 0.6L 10/21/18 21:00: Sodium Level 117*L, Potassium Level 4.6, Chloride Level 80L, Carbon Dioxide Level 19L, Anion Gap 19H, Blood Urea Nitrogen 87H, Creatinine 5.8H, Estimat Glomerular Filtration Rate , Glucose Level 135H, Calcium Level 6.0L, Total Bilirubin 4.0H, Direct Bilirubin 3.4H, Aspartate Amino Transf (AST/SGOT) 2052H, Alanine Aminotransferase (ALT/SGPT) 883H, Alkaline Phosphatase 186H, Total Protein 5.8L, Albumin 2.2L, Globulin 3.6, Albumin/Globulin Ratio 0.6L 10/22/18 04:00: White Blood Count 26.6*H, Red Blood Count 3.81L, Hemoglobin 10.5L, Hematocrit 31.6L, Mean Corpuscular Volume 83, Mean Corpuscular Hemoglobin 27.5, Mean Corpuscular Hemoglobin Concent 33.2, Red Cell Distribution Width 18.9H, Platelet Count 106L, Mean Platelet Volume 8.8, Neutrophils (%) (Auto) , Lymphocytes (%) (Auto) , Monocytes (%) (Auto) , Eosinophils (%) (Auto) , Basophils (%) (Auto) , Differential Total Cells Counted 100, Neutrophils % ( Manual) 93H, Lymphocytes % (Manual) 4L, Monocytes % (Manual) 3, Eosinophils % ( Manual) 0, Basophils % (Manual) 0, Band Neutrophils 0, Nucleated Red Blood Cells 7, Platelet Estimate DecreasedL, Platelet Morphology Normal, Anisocytosis 1+, Indra Cells 1+, Activated Partial Thromboplast Time 62H, Random Vancomycin Level 16.6 10/22/18 12:05: Sodium Level 116*L, Potassium Level 4.3, Chloride Level 82L, Carbon Dioxide Level 18L, Anion Gap 16H, Blood Urea Nitrogen 88H, Creatinine 5.8H, Estimat Glomerular Filtration Rate , Glucose Level 185H, Calcium Level 6.0L, Activated Partial Thromboplast Time 80H Height (Feet): 5 Height (Inches): 2.00 Weight (Pounds): 148 Cardiovascular: tachycardia Respiratory/Chest: rhonchi - bilaterally Extremities: severe edema Mario Porter MD Oct 22, 2018 14:39
--- NOTE | 2018-10-22 15:45 | NUR ---
NURSE NOTES: Vasopressin started at 0.04units/hr started on right upper arm picc, and started 3%NS on the right upper IJ, patient remains obtunded, he still opens eyes when shaken and name is called, other raygoza no changed since 1200 or previous notes. will continue plan of care
[2018-10-22] MEDS: Vasopressin 100 UNITS in NS 95 ML IV SCH (15:51)
--- NOTE | 2018-10-22 18:20 | Infectious Diseases Prog Note ---
Assessment/Plan Assessment/Plan A) 1) sepsis, shock, leukocytosis, pna, ? fungemia, ? c.diff. 2) respiratory failure, vent, dm, htn, fred, HD, nstemi, anemia, cad, chf, hyponatremia 3) , pvd, cidp, prostate ca, ckd 4) sh-neg, fh-nc, mar noted, orders and notes reviewed 5) allergies - pcn 6) d/w RN P) 1) meropenem, polymyxin, vancomycin, po vancomycin, diflucan 2) f/u on cultures, labs and chest x-ray, c.diff., labs 3) continue treatment per primary team and consultants, icu, supportive care 4) condition critical 5) will follow Subjective Constitutional: Reports: fatigue, other - on vent and pressors, poorly resposive ; Denies: fever HEENT: Reports: congestion Respiratory: Reports: shortness of breath Cardiovascular: Reports: other - + pressors Gastrointestinal/Abdominal: Reports: other - no cooper ; Denies: nausea, vomiting, diarrhea Genitourinary: Reports: other - no foely Neurologic: Reports: other - lethargic, poorly responsive Psychiatric: Reports: other - na Skin: Denies: rash Hematologic: Denies: bleeding Musculoskeletal: Reports: other - na Allergies: Coded Allergies: PENICILLINS (Verified Allergy, Unknown, 10/09/18) Objective Vital Signs Last 24 Hour Vital Signs Date Time Temp Pulse Resp B/P (MAP) Pulse Ox O2 Delivery O2 Flow Rate FiO2 10/22/18 17:30 94 21 91/98 (96) 100 10/22/18 17:13 95 28 40 10/22/18 17:00 97 12 103/61 (75) 100 10/22/18 16:30 97 21 107/52 (70) 100 10/22/18 16:05 97 24 40 10/22/18 16:00 98.6 97 24 101/57 (72) 100 10/22/18 16:00 95 10/22/18 16:00 40 10/22/18 16:00 Room Air 10/22/18 15:30 96 25 88/49 (62) 100 10/22/18 15:00 92 20 98/52 (67) 100 10/22/18 14:30 92 20 91/48 (62) 100 10/22/18 14:00 92 20 94/47 (63) 100 10/22/18 13:30 92 19 96/46 (63) 100 10/22/18 13:00 91 19 89/42 (58) 100 10/22/18 12:43 96/48 10/22/18 12:40 96 23 100 Mechanical Ventilator 40 10/22/18 12:35 96 24 100 Mechanical Ventilator 40 10/22/18 12:35 96 27 40 10/22/18 12:30 92 20 96/48 (64) 100 10/22/18 12:00 98.7 97 28 103/50 (67) 100 10/22/18 12:00 Room Air 10/22/18 12:00 103/50 10/22/18 12:00 40 10/22/18 12:00 95 10/22/18 11:30 96 24 97/48 (64) 100 10/22/18 11:05 98 28 40 10/22/18 11:00 97 27 100/50 (67) 100 10/22/18 10:30 96 26 94/49 (64) 100 10/22/18 10:00 98 26 98/47 (64) 100 10/22/18 09:30 98 25 107/44 (65) 100 10/22/18 09:24 92/43 10/22/18 09:00 96 25 92/43 (59) 100 10/22/18 08:45 96 25 40 10/22/18 08:30 97 25 106/61 (76) 100 10/22/18 08:00 97 10/22/18 08:00 98.8 97 25 103/50 (67) 100 10/22/18 08:00 40 10/22/18 08:00 Room Air 10/22/18 07:30 97 26 101/51 (68) 99 10/22/18 07:06 98 20 100 Mechanical Ventilator 40 10/22/18 07:05 102 26 100 Mechanical Ventilator 40 10/22/18 07:03 102 27 40 10/22/18 07:00 105 25 114/51 (72) 100 10/22/18 06:30 106 25 100/52 (68) 99 10/22/18 06:00 96 20 96/44 (61) 98 10/22/18 05:30 96 20 99/43 (61) 98 10/22/18 05:15 96 23 40 10/22/18 05:00 97 20 95/41 (59) 98 10/22/18 04:30 103 20 98/56 (70) 98 10/22/18 04:00 103 10/22/18 04:00 40 10/22/18 04:00 98.7 103 20 106/47 (66) 98 10/22/18 04:00 Mechanical Ventilator Room Air 10/22/18 03:30 103 20 101/50 (67) 99 10/22/18 03:06 99 27 40 10/22/18 03:00 97 22 97/52 (67) 99 10/22/18 02:30 96 23 99/45 (63) 99 10/22/18 02:12 93/48 10/22/18 02:00 95 21 98/48 (65) 100 10/22/18 01:30 94 27 98/50 (66) 99 10/22/18 01:20 94 20 100 Mechanical Ventilator 40 10/22/18 01:10 101 24 40 10/22/18 01:10 101 23 98 Mechanical Ventilator 40 10/22/18 01:00 100 25 102/54 (70) 99 10/22/18 00:30 99 25 102/46 (64) 99 10/22/18 00:18 110/51 10/22/18 00:00 40 10/22/18 00:00 98.2 97 24 110/51 (70) 99 10/22/18 00:00 Mechanical Ventilator Room Air 10/22/18 00:00 92 10/21/18 23:30 94 26 104/49 (67) 100 10/21/18 23:00 94 25 104/65 (78) 100 10/21/18 22:39 93 29 40 10/21/18 22:30 94 27 109/57 (74) 100 10/21/18 22:00 91 27 101/50 (67) 99 10/21/18 21:30 95 20 100/44 (62) 98 10/21/18 21:00 97 24 110/54 (72) 98 10/21/18 20:53 101 26 40 10/21/18 20:30 99 21 107/45 (65) 98 10/21/18 20:00 98.1 93 26 105/49 (67) 98 2/14/19 20:00 93 10/21/18 20:00 40 10/21/18 20:00 Mechanical Ventilator Room Air 10/21/18 19:30 87 20 91/36 (54) 100 10/21/18 19:26 92 25 100 Mechanical Ventilator 40 10/21/18 19:16 93 25 100 Mechanical Ventilator 40 10/21/18 19:15 93 25 40 10/21/18 19:00 96 23 110/53 (72) 99 10/21/18 19:00 110/53 10/21/18 18:30 96 21 107/55 (72) 100 Height (Feet): 5 Height (Inches): 2.00 Weight (Pounds): 148 General Appearance: other - + pressors and vent, + hd, poorly responsive HEENT: normocephalic, atraumatic, anicteric, other - oral - intubaded Respiratory/Chest: crackles/rales, rhonchi - bilaterally Cardiovascular: regular rhythm, no gallop/murmur, no JVD, tachycardia Abdomen: normal bowel sounds, soft, non tender, no organomegaly Genitourinary: other - no cooper, + hd Extremities: no cyanosis Skin: no rash Neurologic/Psychiatric: other - lethargic, poorly responsive Lymphatic: no neck adenopathy Musculoskeletal: no effusion Objective 10/21/18 - chest x-ray - Findings: Bilateral small pleural effusions are unchanged. Stable satisfactory positions of endotracheal tube, right external jugular temporary dialysis catheter, left arm PICC. Interim placement of a nasogastric tube, tip which projects beyond the edge of image, documented to be intragastric on an earlier abdominal radiograph. Previously demonstrated right basilar interstitial opacities appear improved Impression: Interim enteric feeding tube placement. Slight clearing of previously demonstrated right basilar interstitial opacities. Otherwise, little change house attendant 2 days, findings as noted Microbiology Date/Time Source Procedure Growth Status 10/20/18 06:10 Blood Blood Culture - Preliminary NO GROWTH AFTER 24 HOURS Resulted 10/20/18 10:00 Sputum Induced Gram Stain - Final Resulted 10/20/18 10:00 Sputum Induced Sputum Culture Pending Resulted Microbiology Date/Time Source Procedure Growth Status 10/20/18 06:10 Blood Blood Culture - Preliminary NO GROWTH AFTER 24 HOURS Resulted 10/20/18 06:00 Blood Blood Culture - Preliminary NO GROWTH AFTER 24 HOURS Resulted 10/20/18 10:00 Sputum Induced Gram Stain - Final Resulted 10/20/18 10:00 Sputum Induced Sputum Culture Pending Resulted Laboratory Tests Test 10/21/18 20:50 10/21/18 21:00 10/22/18 04:00 10/22/18 12:05 Sodium Level 116 MMOL/L (136-145) *L 117 MMOL/L (136-145) *L 116 MMOL/L (136-145) *L Potassium Level 4.6 MMOL/L (3.5-5.1) 4.6 MMOL/L (3.5-5.1) 4.3 MMOL/L (3.5-5.1) Chloride Level 80 MMOL/L (98-107) L 80 MMOL/L (98-107) L 82 MMOL/L (98-107) L Carbon Dioxide Level 18 MMOL/L (21-32) L 19 MMOL/L (21-32) L 18 MMOL/L (21-32) L Anion Gap 19 mmol/L (5-15) H 19 mmol/L (5-15) H 16 mmol/L (5-15) H Blood Urea Nitrogen 86 mg/dL (7-18) H 87 mg/dL (7-18) H 88 mg/dL (7-18) H Creatinine 5.7 MG/DL (0.55-1.30) H 5.8 MG/DL (0.55-1.30) H 5.8 MG/DL (0.55-1.30) H Estimat Glomerular Filtration Rate mL/min (>60) mL/min (>60) mL/min (>60) Glucose Level 180 MG/DL (74-106) H 135 MG/DL (74-106) H 185 MG/DL (74-106) H Calcium Level 5.8 MG/DL (8.5-10.1) *L 6.0 MG/DL (8.5-10.1) L 6.0 MG/DL (8.5-10.1) L Total Bilirubin 4.1 MG/DL (0.2-1.0) H 4.0 MG/DL (0.2-1.0) H Direct Bilirubin 3.5 MG/DL (0.0-0.3) H 3.4 MG/DL (0.0-0.3) H Aspartate Amino Transf (AST/SGOT) 2107 U/L (15-37) H 2052 U/L (15-37) H Alanine Aminotransferase (ALT/SGPT) 888 U/L (12-78) H 883 U/L (12-78) H Alkaline Phosphatase 189 U/L (46-116) H 186 U/L (46-116) H Total Protein 6.0 G/DL (6.4-8.2) L 5.8 G/DL (6.4-8.2) L Albumin 2.2 G/DL (3.4-5.0) L 2.2 G/DL (3.4-5.0) L Globulin 3.8 g/dL 3.6 g/dL Albumin/Globulin Ratio 0.6 (1.0-2.7) L 0.6 (1.0-2.7) L White Blood Count 26.6 K/UL (4.8-10.8) *H Red Blood Count 3.81 M/UL (4.70-6.10) L Hemoglobin 10.5 G/DL (14.2-18.0) L Hematocrit 31.6 % (42.0-52.0) L Mean Corpuscular Volume 83 FL (80-99) Mean Corpuscular Hemoglobin 27.5 PG (27.0-31.0) Mean Corpuscular Hemoglobin Concent 33.2 G/DL (32.0-36.0) Red Cell Distribution Width 18.9 % (11.6-14.8) H Platelet Count 106 K/UL (150-450) L Mean Platelet Volume 8.8 FL (6.5-10.1) Neutrophils (%) (Auto) % (45.0-75.0) Lymphocytes (%) (Auto) % (20.0-45.0) Monocytes (%) (Auto) % (1.0-10.0) Eosinophils (%) (Auto) % (0.0-3.0) Basophils (%) (Auto) % (0.0-2.0) Differential Total Cells Counted 100 Neutrophils % (Manual) 93 % (45-75) H Lymphocytes % (Manual) 4 % (20-45) L Monocytes % (Manual) 3 % (1-10) Eosinophils % (Manual) 0 % (0-3) Basophils % (Manual) 0 % (0-2) Band Neutrophils 0 % (0-8) Nucleated Red Blood Cells 7 /100 WBC Platelet Estimate Decreased L Platelet Morphology Normal Anisocytosis 1+ [place] Cells 1+ Activated Partial Thromboplast Time 62 SEC (23-33) H 80 SEC (23-33) H Random Vancomycin Level 16.6 ug/mL Current Medications Medications (Trade) Dose Ordered Sig/Ashely Route PRN Reason Start Time Stop Time Status Last Admin Dose Admin Acetaminophen (Tylenol) 650 mg Q6H PRN ORAL Mild Pain/Temp > 100.5 10/18/18 16:30 11/08/18 04:23 Albuterol/ Ipratropium (Albuterol/ Ipratropium) 3 ml Q4H PRN HHN Shortness of Breath 10/18/18 17:30 10/23/18 13:29 Albuterol/ Ipratropium (Albuterol/ Ipratropium) 3 ml Q6HRT HHN 10/18/18 19:00 10/23/18 18:59 10/22/18 12:38 Aspirin (Ecotrin) 81 mg DAILY ORAL 10/19/18 09:00 11/09/18 08:59 10/22/18 09:25 Atorvastatin Calcium (Lipitor) 40 mg BEDTIME ORAL 10/18/18 21:00 11/09/18 20:59 10/21/18 21:08 Calcium Carbonate (Tums) 500 mg BID GT 10/20/18 18:00 11/09/18 08:59 10/22/18 17:59 Chlorhexidine Gluconate (Anai-Hex 2%) 1 applic DAILY@2000 TOPIC 10/18/18 20:00 11/12/18 19:59 10/21/18 19:31 Dextrose 1,000 ml @ 30 mls/hr Q24H IV 10/19/18 08:15 11/18/18 08:14 10/22/18 09:25 Dextrose (Dextrose 50%) 25 ml Q30M PRN IV Hypoglycemia 10/18/18 16:45 11/16/18 08:44 Dextrose (Dextrose 50%) 50 ml Q30M PRN IV Hypoglycemia 10/18/18 16:45 11/16/18 08:44 10/19/18 06:26 Dobutamine HCl 250 ml @ 10.05 mls/ hr Q24H IV 10/19/18 11:40 11/18/18 11:39 10/22/18 12:43 Docusate Sodium (Colace) 100 mg TWICE A DAY GT 10/20/18 18:00 11/09/18 08:59 10/22/18 17:58 Dopamine HCl/ Dextrose 250 ml @ 0 mls/hr Q24H IV 10/19/18 12:45 11/18/18 12:44 10/20/18 17:43 Haloperidol Lactate (Haldol) 5 mg Q6H PRN IM Agitation 10/18/18 17:00 11/17/18 16:59 Heparin Sodium/ Dextrose 500 ml @ 6.713 mls/ hr ADJUST PER PROTOCOL IV 10/22/18 05:15 11/19/18 07:44 10/22/18 05:55 Insulin Aspart (NovoLOG) BEFORE MEALS AND HS SUBQ 10/18/18 16:30 11/16/18 11:29 Latanoprost (Xalatan) 1 drop BEDTIME BOTH EYES 10/18/18 21:00 11/10/18 20:59 10/21/18 21:05 Meropenem 500 mg/ Sodium Chloride 50 ml @ 100 mls/hr Q24HRS IVPB 10/20/18 00:00 10/25/18 00:00 10/21/18 23:50 Norepinephrine Bitartrate 16 mg/ Dextrose 500 ml @ 0 mls/hr Q24H IV 10/20/18 18:00 11/19/18 17:59 10/22/18 09:24 Octreotide Acetate (SandoSTATIN) 50 mcg Q12H SUBQ 10/20/18 12:00 11/18/18 07:59 10/22/18 12:42 Ondansetron HCl (Zofran) 4 mg Q8H PRN IVP Nausea & Vomiting 10/18/18 17:00 11/17/18 16:59 Pantoprazole (Protonix) 40 mg ACBREAKFAST ORAL 10/19/18 06:30 11/09/18 08:59 10/22/18 05:55 Polymyxin B Sulfate 067514 units/Dextrose 250 ml @ 250 mls/hr EVERY 12 HOURS IVPB 10/20/18 09:00 10/27/18 08:59 10/22/18 09:24 Promethazine HCl (Phenergan [place]) 6.25 mg Q6H PRN ORAL For Cough 10/18/18 16:45 11/10/18 04:32 Sodium Chloride 500 ml @ 30 mls/hr ONCE ONCE IV 10/22/18 15:00 10/23/18 07:39 10/22/18 15:51 Vancomycin HCl (Vanco rx to dose) 1 ea DAILY PRN MISC Per rx protocol 10/19/18 23:30 11/18/18 23:29 Vasopressin 100 units/Sodium Chloride 100 ml @ 2.4 mls/hr Q24H IV 10/22/18 15:00 11/21/18 14:59 10/22/18 15:51 Roseline Figueroa MD Oct 22, 2018 18:20
--- NOTE | 2018-10-22 18:45 | Diagnostic Imaging Report ---
EXAM: US Abdomen Complete CLINICAL HISTORY: LUMP TECHNIQUE: Real-time ultrasound of the abdomen (complete) with image documentation. COMPARISON: No relevant prior studies available. FINDINGS: Liver: Echogenic liver which may be fatty infiltration. Small perihepatic fluid. Gallbladder: Cholecystectomy. Common bile duct: CBD 3 mm. Pancreas: Obscured. Kidneys: Tiyj-hj-czlqmgmy right hydronephrosis. No left hydronephrosis. Left renal 3 cm cyst Spleen: Unremarkable. Aorta: Unremarkable as visualized. Inferior vena cava: Unremarkable as visualized. Pleural space: Right pleural effusion. IMPRESSION: 1. Echogenic liver which may be fatty infiltration. Small perihepatic fluid. 2. Kxmn-[id number] right hydronephrosis.
--- NOTE | 2018-10-22 18:53 | Cardiology Progress Note ---
Assessment/Plan Assessment/Plan cardiology critical care 1. Hypoglycemia secondary to medication. 2. Diabetes mellitus previously. 3. Acute Respiratory inusf / hemoptysis 4. History of ischemic cardiomyopathy with ejection fraction of 40%. 5. Mitral regurgitation, vwhgoyjp-ns-svkoup degree on recent echocardiogram last week. 6. Moderate tricuspid regurgitation. 7. Mild pulmonary hypertension with 43 through 48. 8. Pleural effusions history. 9. Abnormal gastric endoscopy, suspicious for malignancy with submucosal resection. 10. Aortic stenosis. 11. Hyperlipidemia. 12. Prostate cancer. 13. Abnormal facial asymmetry. 14. CAD 15. hypotension 16. NSTEMI demand related vs PE related doubt acs 17. acute on chronic renal failure 18. metabolic acidosis 19. hemiparesis 20. hypotension 21. wide pusle pressure imporved 22. abn lft probable shock liver 23. profound hyponatremia v/q was ordered but not done is on heparin ct done was not very remarkable need mri when feasible is responsive but not follow commands noted cr increased on dobutamine is on levophed as well echo reviewed has infor post swma and mod mr and ef probley 35-40% , rv is not enlarge ivc ws enlarged at the time was done unalbel to tolerate dialysisi as low bp yest d/w dr gibson today neuro input appreciated is on abx adjsuted by id bp is still low on 3 pressor nwo has abn lft await gi input ammonia normal gettign 3% saline abd u/s: 1. Echogenic liver which may be fatty infiltration. Small perihepatic fluid. 2. Fryk-jj-zgsbkswm right hydronephrosis. d/w family i have made son aware of the poor status we discussed resuscitative effort they wish him to be full code due to christian reason will re attempt dialysis tomorrow if fail will rediscuss option agian with family d/w id d/w pulm d/w renal every one agree about poor prognosis Subjective Subjective intubated on 3 pressor Objective Last 24 Hour Vital Signs Date Time Temp Pulse Resp B/P (MAP) Pulse Ox O2 Delivery O2 Flow Rate FiO2 10/22/18 17:30 94 21 91/98 (96) 100 10/22/18 17:13 95 28 40 10/22/18 17:00 97 12 103/61 (75) 100 10/22/18 16:30 97 21 107/52 (70) 100 10/22/18 16:05 97 24 40 10/22/18 16:00 98.6 97 24 101/57 (72) 100 10/22/18 16:00 95 10/22/18 16:00 40 10/22/18 16:00 Room Air 10/22/18 15:30 96 25 88/49 (62) 100 10/22/18 15:00 92 20 98/52 (67) 100 10/22/18 14:30 92 20 91/48 (62) 100 10/22/18 14:00 92 20 94/47 (63) 100 10/22/18 13:30 92 19 96/46 (63) 100 10/22/18 13:00 91 19 89/42 (58) 100 10/22/18 12:43 96/48 10/22/18 12:40 96 23 100 Mechanical Ventilator 40 10/22/18 12:35 96 24 100 Mechanical Ventilator 40 10/22/18 12:35 96 27 40 10/22/18 12:30 92 20 96/48 (64) 100 10/22/18 12:00 98.7 97 28 103/50 (67) 100 10/22/18 12:00 Room Air 10/22/18 12:00 103/50 10/22/18 12:00 40 10/22/18 12:00 95 10/22/18 11:30 96 24 97/48 (64) 100 10/22/18 11:05 98 28 40 10/22/18 11:00 97 27 100/50 (67) 100 10/22/18 10:30 96 26 94/49 (64) 100 10/22/18 10:00 98 26 98/47 (64) 100 10/22/18 09:30 98 25 107/44 (65) 100 10/22/18 09:24 92/43 10/22/18 09:00 96 25 92/43 (59) 100 10/22/18 08:45 96 25 40 10/22/18 08:30 97 25 106/61 (76) 100 10/22/18 08:00 97 10/22/18 08:00 98.8 97 25 103/50 (67) 100 10/22/18 08:00 40 10/22/18 08:00 Room Air 10/22/18 07:30 97 26 101/51 (68) 99 2/15/19 07:06 98 20 100 Mechanical Ventilator 40 10/22/18 07:05 102 26 100 Mechanical Ventilator 40 10/22/18 07:03 102 27 40 10/22/18 07:00 105 25 114/51 (72) 100 10/22/18 06:30 106 25 100/52 (68) 99 10/22/18 06:00 96 20 96/44 (61) 98 10/22/18 05:30 96 20 99/43 (61) 98 10/22/18 05:15 96 23 40 10/22/18 05:00 97 20 95/41 (59) 98 10/22/18 04:30 103 20 98/56 (70) 98 10/22/18 04:00 103 10/22/18 04:00 40 10/22/18 04:00 98.7 103 20 106/47 (66) 98 10/22/18 04:00 Mechanical Ventilator Room Air 10/22/18 03:30 103 20 101/50 (67) 99 10/22/18 03:06 99 27 40 10/22/18 03:00 97 22 97/52 (67) 99 10/22/18 02:30 96 23 99/45 (63) 99 10/22/18 02:12 93/48 10/22/18 02:00 95 21 98/48 (65) 100 10/22/18 01:30 94 27 98/50 (66) 99 10/22/18 01:20 94 20 100 Mechanical Ventilator 40 10/22/18 01:10 101 24 40 10/22/18 01:10 101 23 98 Mechanical Ventilator 40 10/22/18 01:00 100 25 102/54 (70) 99 10/22/18 00:30 99 25 102/46 (64) 99 10/22/18 00:18 110/51 10/22/18 00:00 40 10/22/18 00:00 98.2 97 24 110/51 (70) 99 10/22/18 00:00 Mechanical Ventilator Room Air 10/22/18 00:00 92 10/21/18 23:30 94 26 104/49 (67) 100 10/21/18 23:00 94 25 104/65 (78) 100 10/21/18 22:39 93 29 40 10/21/18 22:30 94 27 109/57 (74) 100 10/21/18 22:00 91 27 101/50 (67) 99 10/21/18 21:30 95 20 100/44 (62) 98 10/21/18 21:00 97 24 110/54 (72) 98 10/21/18 20:53 101 26 40 10/21/18 20:30 99 21 107/45 (65) 98 10/21/18 20:00 98.1 93 26 105/49 (67) 98 10/21/18 20:00 93 10/21/18 20:00 40 10/21/18 20:00 Mechanical Ventilator Room Air 10/21/18 19:30 87 20 91/36 (54) 100 10/21/18 19:26 92 25 100 Mechanical Ventilator 40 10/21/18 19:16 93 25 100 Mechanical Ventilator 40 10/21/18 19:15 93 25 40 10/21/18 19:00 96 23 110/53 (72) 99 10/21/18 19:00 110/53 Intake and Output 10/21/18 10/22/18 19:00 07:00 Intake Total 1952.686 ml 2734.117 ml Balance 1952.686 ml 2734.117 ml Free Water 90 ml 150 ml IV Total 1382.686 ml 2104.117 ml Tube Feeding 480 ml 480 ml Laboratory Tests Test 10/21/18 20:50 10/21/18 21:00 10/22/18 04:00 10/22/18 12:05 Sodium Level 116 MMOL/L (136-145) *L 117 MMOL/L (136-145) *L 116 MMOL/L (136-145) *L Potassium Level 4.6 MMOL/L (3.5-5.1) 4.6 MMOL/L (3.5-5.1) 4.3 MMOL/L (3.5-5.1) Chloride Level 80 MMOL/L (98-107) L 80 MMOL/L (98-107) L 82 MMOL/L (98-107) L Carbon Dioxide Level 18 MMOL/L (21-32) L 19 MMOL/L (21-32) L 18 MMOL/L (21-32) L Anion Gap 19 mmol/L (5-15) H 19 mmol/L (5-15) H 16 mmol/L (5-15) H Blood Urea Nitrogen 86 mg/dL (7-18) H 87 mg/dL (7-18) H 88 mg/dL (7-18) H Creatinine 5.7 MG/DL (0.55-1.30) H 5.8 MG/DL (0.55-1.30) H 5.8 MG/DL (0.55-1.30) H Estimat Glomerular Filtration Rate mL/min (>60) mL/min (>60) mL/min (>60) Glucose Level 180 MG/DL (74-106) H 135 MG/DL (74-106) H 185 MG/DL (74-106) H Calcium Level 5.8 MG/DL (8.5-10.1) *L 6.0 MG/DL (8.5-10.1) L 6.0 MG/DL (8.5-10.1) L Total Bilirubin 4.1 MG/DL (0.2-1.0) H 4.0 MG/DL (0.2-1.0) H Direct Bilirubin 3.5 MG/DL (0.0-0.3) H 3.4 MG/DL (0.0-0.3) H Aspartate Amino Transf (AST/SGOT) 2107 U/L (15-37) H 2052 U/L (15-37) H Alanine Aminotransferase (ALT/SGPT) 888 U/L (12-78) H 883 U/L (12-78) H Alkaline Phosphatase 189 U/L (46-116) H 186 U/L (46-116) H Total Protein 6.0 G/DL (6.4-8.2) L 5.8 G/DL (6.4-8.2) L Albumin 2.2 G/DL (3.4-5.0) L 2.2 G/DL (3.4-5.0) L Globulin 3.8 g/dL 3.6 g/dL Albumin/Globulin Ratio 0.6 (1.0-2.7) L 0.6 (1.0-2.7) L White Blood Count 26.6 K/UL (4.8-10.8) *H Red Blood Count 3.81 M/UL (4.70-6.10) L Hemoglobin 10.5 G/DL (14.2-18.0) L Hematocrit 31.6 % (42.0-52.0) L Mean Corpuscular Volume 83 FL (80-99) Mean Corpuscular Hemoglobin 27.5 PG (27.0-31.0) Mean Corpuscular Hemoglobin Concent 33.2 G/DL (32.0-36.0) Red Cell Distribution Width 18.9 % (11.6-14.8) H Platelet Count 106 K/UL (150-450) L Mean Platelet Volume 8.8 FL (6.5-10.1) Neutrophils (%) (Auto) % (45.0-75.0) Lymphocytes (%) (Auto) % (20.0-45.0) Monocytes (%) (Auto) % (1.0-10.0) Eosinophils (%) (Auto) % (0.0-3.0) Basophils (%) (Auto) % (0.0-2.0) Differential Total Cells Counted 100 Neutrophils % (Manual) 93 % (45-75) H Lymphocytes % (Manual) 4 % (20-45) L Monocytes % (Manual) 3 % (1-10) Eosinophils % (Manual) 0 % (0-3) Basophils % (Manual) 0 % (0-2) Band Neutrophils 0 % (0-8) Nucleated Red Blood Cells 7 /100 WBC Platelet Estimate Decreased L Platelet Morphology Normal Anisocytosis 1+ [place] Cells 1+ Activated Partial Thromboplast Time 62 SEC (23-33) H 80 SEC (23-33) H Random Vancomycin Level 16.6 ug/mL Microbiology Date/Time Source Procedure Growth Status 10/20/18 06:10 Blood Blood Culture - Preliminary NO GROWTH AFTER 24 HOURS Resulted 10/20/18 06:00 Blood Blood Culture - Preliminary NO GROWTH AFTER 24 HOURS Resulted 10/20/18 10:00 Sputum Induced Gram Stain - Final Resulted 10/20/18 10:00 Sputum Induced Sputum Culture Pending Resulted Dg Key MD Oct 22, 2018 18:53
--- NOTE | 2018-10-22 19:30 | NUR ---
NURSE NOTES:Received ptletargic respond to tactile stimulation, orally intubated on ac mode SR on the monitor, Bp labile, pt on Levophed drip at this time at 30mcg/min. vasopressin drip at 0.04 u/min, Dobutamine drip at 2.5mcg/kg/min , Heparin drp at 5u/kg/hr, all ivf been infusing to KIM PICC line and RT IJ cem cath with pigtail. Pt been swollen, 3-4+ edema , wheeping and with scrotal edema. Pt is anuric, Tolerating OGT fdg at this time. HOB kept elevated. On aspiration precaution. Pt as well with skin tear and pressure sores with drsg dry and intact. turned q 2hrs prn with good skin care done. will continue to monitor.
--- NOTE | 2018-10-22 19:32 | NUR ---
HAND-OFF: Report given to JACQUI Lorenzo. patient remains on Levophed, heparin, vasopressin, dobutamine, and d5W.
--- NOTE | 2018-10-22 20:15 | Consultation ---
DATE OF CONSULTATION: 10/22/2018 CONSULTING PHYSICIAN: Baldemar Hawley M.D. CHIEF COMPLAINT: Abdominal pain, abdominal distention, abnormal liver function tests. HISTORY OF PRESENT ILLNESS: Most of history is per chart. The patient is intubated in ICU. I was consulted for evaluation for abdominal distention and abnormal liver function tests. PAST MEDICAL HISTORY: 1. Hypertension. 2. Diabetes. 3. Prostate cancer. 4. Peripheral neuropathy. 5. Peripheral vascular disease. 6. Hyperlipidemia. 7. Aortic valve stenosis. 8. Lower extremity claudication. 9. B12 deficiency. 10. Vitamin D deficiency. 11. History of cholecystitis, status post cholecystectomy. 12. Osteopenia. 13. Coronary artery disease and history of percutaneous coronary interventions. 14. Congestive heart failure. 15. Diastolic heart failure. 16. Mitral regurgitation. 17. Hypoalbuminemia. 18. Pleural effusions. ALLERGIES: Penicillin. MEDICATIONS: Please see medication reconciliation list. SOCIAL HISTORY: There is no recent history of tobacco, alcohol, or illicit drug abuse. 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 FAMILY HISTORY: Noncontributory. REVIEW OF SYSTEMS: Unable to obtain. PHYSICAL EXAMINATION: VITAL SIGNS: Temperature is 98.7, pulse is 96, respirations 23, blood pressure 96/48. HEENT: Normocephalic and atraumatic. Mild scleral icterus. NECK: Supple. CARDIOVASCULAR: Tachycardic. Regular . Plus S1, S2. There is a soft murmur at the left sternal border. LUNGS: Decreased breath sounds bilaterally diffusely on supine exam. ABDOMEN: Distended, tympanic to percussion. Hypoactive bowel sounds. EXTREMITIES: No cyanosis, no clubbing, no edema. NEUROLOGIC: Unable to obtain given the patient is on vent. LABORATORY DATA: Sodium 116, potassium 4.3, BUN 88, creatinine 5.8, glucose 185, bilirubin is 4, direct is 3.4, AST 2052, ALT of 883, alkaline phosphatase of 186. Albumin is low at 2.2. White count is 26, hemoglobin 10, hematocrit 31, platelet count is 106,000. ASSESSMENT: This is an 83-year-old male with numerous medical problems, now with respiratory failure, hyponatremia, colonic distention, and abnormal liver function tests. PLAN: Stat KUB to evaluate for colonic distention. Put a rectal tube for colonic decompression. NG-tube to low-intermittent suction. Hold tube feeding. Stat abdominal ultrasound for evaluation of common bile duct stones. The patient is not stable for an MRCP. We will repeat the laboratories tomorrow. The patient is very critical and needs to be monitored closely. Baldemar Hawley M.D. DR: Antoinette JOB#: [id number] CC:
[2018-10-22] MEDS: Dyna-Hex 2% Top Sol 2oz TOPIC SCH (20:22)
--- NOTE | 2018-10-22 21:00 | NUR ---
NURSE NOTES:Dobutamine drip decrease to 9ml/hr per Dr Portillo order. SBP>90s. Neur unchanged.
[2018-10-22] MEDS: Atorvastatin 20mg tab ORAL SCH (21:03)
[2018-10-22] MEDS: Vancomycin oral 125mg/2.5ml ORAL SCH (21:03)
[2018-10-22] MEDS: Latanoprost 0.005% Opth 2.5ml Soln BOTH EYES SCH (21:09)
--- NOTE | 2018-10-22 23:00 | NUR ---
NURSE NOTES:Pt had x1 lg soft yellow stool. Complete bath given. Extremities still wheeping with fluids. elevated with pillows affected parts.
[2018-10-23] VITALS (46 sets, daily range): BP systolic 82–141; BP diastolic 24–77
--- NOTE | 2018-10-23 | Consultation ---
DATE OF CONSULTATION: 10/20/2018 INFECTIOUS DISEASE CONSULT CONSULTING PHYSICIAN: Roseline Figueroa M.D. REFERRING PHYSICIAN: Dg Key M.D. REASON FOR CONSULTATION: Sepsis, shock, pneumonia, and leukocytosis. CHIEF COMPLAINT: The patient's main complaint is shortness of breath and upper respiratory infection. HISTORY OF PRESENT ILLNESS: This is an 83-year-old male who comes to [facility] with multiple medical problems. Initially, the patient came in with hypoglycemia, which was medication induced. The patient is stabilizing now; however, the patient developed sepsis shock and respiratory failure. The patient's chest x-ray showed effusion, atelectasis versus infiltrates. The patient is in respiratory failure when I saw him requiring pressors in septic shock. The patient was initially started on vancomycin and Zosyn for his clinical deterioration. When I saw the patient, I changed to meropenem, polymyxin, and vancomycin. Infectious disease consultation was requested for antibiotic management for this patient. MAR was noted. Orders were noted. Notes were reviewed. The patient's cultures are pending. The patient has respiratory failure, on vent in ICU requiring pressors. The patient is a poor historian. REVIEW OF SYSTEMS: CONSTITUTIONAL: The patient is a hemodialysis patient. He does not have any Reyes. He has generalized fatigue, weakness, poorly responsive. HEAD AND NECK: He is orally intubated. CARDIAC: He is on pressors. GI: No nausea, vomiting, or diarrhea. : He has hemodialysis. No Reyes. PULMONARY: On a vent, some secretions. SKIN: No new rash. No other seizures. NEUROLOGIC: Poorly responsive. No seizure activity. Generalized fatigue and weakness. Poorly responsive. Rest of the review of systems is otherwise limited in this patient. PAST MEDICAL HISTORY: The patient has a past medical history of hypertension, diabetes, prostate cancer, neuropathy, peripheral vascular disease, hyperlipidemia, aortic valve stenosis, claudication, vitamin D deficiency, cholecystitis, cholecystectomy, coronary artery disease, CHF, heart failure, CAD, history of acute kidney injury, hemodialysis, end-stage renal disease, chronic renal failure, hyponatremia, anemia, diabetes, hypertension, dementia, aortic stenosis, prostate cancer, CIDP, neuropathy, peripheral vascular disease. ALLERGIES: Include penicillin. He tolerates meropenem. He also I believe tolerates Zosyn. FAMILY HISTORY: Noncontributory. Negative for tuberculosis or cancer. SOCIAL HISTORY: Negative for smoking, alcohol, or drug abuse. MEDICATIONS: Upon MAR, the patient is off all medications. I put him on meropenem. I put him on polymyxin. He is also on vancomycin. He is also getting norepinephrine, calcium carbonate, docusate. He is on Sandostatin, antibiotics polymyxin, vancomycin, and meropenem. He is also on dobutamine, aspirin, pantoprazole, Lipitor, Xalatan, albuterol treatments, , Zofran, acetaminophen, and insulin. Outside medications are noted and reconciliated. PHYSICAL EXAMINATION: VITAL SIGNS: The patient's blood pressure is 96/49, saturation 97%, respiratory rate 22, pulse rate 84, temperature 98.5 range. The patient is on pressors. The patient on a vent. Again, pulse rate 84, respiratory 22, blood pressure 96/90, sats 97%, temperature 98.5, and he is on a vent. He is on pressors. GENERAL: Lethargic, weak. HEAD AND NECK: Orally intubated. Eye exam, no icterus. Normocephalic. No obvious JVD. HEART: Regular. No obvious gallop or murmur. ABDOMEN: Soft. Positive bowel sounds. LUNGS: Bilateral rhonchi, rales and crackles. SKIN: No rash. MUSCULOSKELETAL: No effusions. Legs are without cellulitis. PERIPHERAL VASCULAR: No cyanosis or gangrene. GENITOURINARY: No Reyes. He is a hemodialysis patient. NEUROLOGIC: Generalized weakness. Poorly responsive. LINE SITES: Without phlebitis. LABORATORY DATA: As follows: The patient's white count 20.9, hemoglobin 9.6, and platelet count 166. Sodium 125, creatinine 5.7. Cultures are pending including blood and sputum. IMAGING STUDIES: Chest x-ray showed atelectasis versus infiltrate noted and reviewed. ASSESSMENT AND PLAN: 1. The patient has sepsis, shock, leukocytosis, pneumonia. High likelihood of aspiration, healthcare-acquired pneumonia, rule out community-acquired pneumonia. At this time, the patient has respiratory failure requiring pressors for sepsis shock, leukocytosis, and SIRS criteria. The patient is currently on meropenem, polymyxin, and vancomycin to cover MRSA and gram-negative. Continue polymyxin, vancomycin, and meropenem. Check cultures and laboratories for pneumonia, sepsis, shock, and leukocytosis, pending final workup with meropenem, polymyxin, and vancomycin for MRSA gram-negative coverage. 2. Respiratory failure, vent. 3. Diabetes. 4. Hypertension. 5. Chronic kidney disease. 6. Hemodialysis. 7. Non-STEMI. 8. Anemia. 9. CAD. 10. CHF. 11. Hyponatremia. 12. Aortic stenosis. 13. Peripheral vascular disease. 14. CIDP. 15. Prostate cancer. 16. Allergic to penicillin. 17. Family history noncontributory. 18. Social history is negative. 19. MAR is noted. 20. Case discussed with RN. 21. ICU care. 22. Skin care protocol. 23. Continue treatment per primary claims consultant. Roseline Figueroa M.D. DR: KM JOB#: [id number] CC:
[2018-10-23] MEDS: SandoSTATIN 50mcg Inj SUBQ SCH (00:23)
--- NOTE | 2018-10-23 01:00 | NUR ---
NURSE NOTES: Dobutamine down to 5ml/hr, Bp remained stable.
[2018-10-23] MEDS: Albuterol/Ipratropium 3ml neb HHN SCH ×3 (01:28→13:13)
--- NOTE | 2018-10-23 03:00 | NUR ---
NURSE NOTES:Complete bath with bed changed done. Dobutamine down to 3 mcg/kg/min. Bp remained stable.
[2018-10-23 05:12] LABS: AMMONIA 62 umol/L (11-32); HEMATOCRIT 33.3 % (42.0-52.0); HEMOGLOBIN 10.6 G/DL (14.2-18.0); MEAN CORPUSCULAR VOLUME 86 FL (80-99); PLATELET COUNT 110 K/UL (150-450); RED BLOOD COUNT 3.89 M/UL (4.70-6.10); RED CELL DISTRIBUTION WIDTH 19.9 % (11.6-14.8)
[2018-10-23 05:13] LABS: WHITE BLOOD COUNT 24.3 K/UL (4.8-10.8)
[2018-10-23] MEDS: Heparin 25,000u/D5W 500ml 500 ML IV SCH (05:15)
[2018-10-23] MEDS ORDERED: Heparin 5000 units/ml inj IV ONE (05:30)
--- NOTE | 2018-10-23 05:41 | NUR ---
NURSE NOTES:PTT -61 secs- Increase Heparin to 7u/kg/min. Bolus 2500u.iv was given
[2018-10-23] MEDS ORDERED: Heparin 25,000u/D5W 500ml 500 ML IV SCH ×3 (05:45→21:15)
[2018-10-23] MEDS: Norepinephrine Bitartrate 16 MG in D5W 500ml 484 ML IV SCH ×2 (05:48→15:49)
[2018-10-23 06:20] LABS: ALANINE AMINOTRANSFERASE 651 U/L (12-78); ALBUMIN 2.1 G/DL (3.4-5.0); ALBUMIN/GLOBULIN RATIO 0.6 (1.0-2.7); ALKALINE PHOSPHATASE 224 U/L (46-116); AMYLASE 171 U/L (25-115); ANION GAP 21 mmol/L (5-15); ASPARTATE AMINO TRANSFERASE 885 U/L (15-37); BILIRUBIN,TOTAL 4.8 MG/DL (0.2-1.0); BLOOD UREA NITROGEN 95 mg/dL (7-18); CARBON DIOXIDE 14 MMOL/L (21-32); CHLORIDE 83 MMOL/L (98-107); POTASSIUM 4.7 MMOL/L (3.5-5.1)
[2018-10-23 06:23] LABS: SODIUM 118 MMOL/L (136-145)
[2018-10-23 06:24] LABS: CALCIUM 5.6 MG/DL (8.5-10.1)
[2018-10-23 06:26] LABS: BILIRUBIN,DIRECT 4.2 MG/DL (0.0-0.3)
[2018-10-23] MEDS: NovoLOG Insulin Flexpen SUBQ SCH ×5 (06:29→21:20)
--- NOTE | 2018-10-23 07:00 | NUR ---
NURSE NOTES:Turned off Dobutamine drip. Bp remained stable. No resp.distress noted. Pt more awake and alert at this time.
--- NOTE | 2018-10-23 07:20 | NUR ---
NURSE NOTES:Kameron Suarez to aware md of pts low calcium 5.6
--- NOTE | 2018-10-23 07:30 | NUR ---
RESPIRATORY NOTE: received pt on vent, intubated with 7.5 ETT placed 23cm at the lip. ETT is secured via anchor fast with no visible redness or skin breakdowns. vent alarms are on and audible, plugged into red outlet and ambu bag at bedside. will cont to monitor.
--- NOTE | 2018-10-23 07:41 | NUR ---
HAND-OFF: Report given to Erick Lopez
--- NOTE | 2018-10-23 08:09 | General Progress Note ---
Assessment/Plan Problem List: (1) CKD (chronic kidney disease) ICD Codes: N18.9 - Chronic kidney disease, unspecified SNOMED: 580754507 (2) Hypoglycemia ICD Codes: E16.2 - Hypoglycemia, unspecified SNOMED: 700795606 (3) Altered mental status ICD Codes: R41.82 - Altered mental status, unspecified SNOMED: 396336818 Assessment/Plan hypoglycemia resolved an now glucose on higher side - on TF and pressors continue glucose monitoring - low dose Novolog coverage hypoglycemia protocol in order Subjective ROS Limited/Unobtainable: Yes Allergies: Coded Allergies: PENICILLINS (Verified Allergy, Unknown, 10/09/18) Subjective events noted intubated in ICU on pressors on TF no hypoglycemia Item Value Date Time Bedside Blood Glucose 236 mg/dl H 10/23/18 0630 Bedside Blood Glucose 211 mg/dl H 10/22/18 2106 Bedside Blood Glucose 161 mg/dl H 10/22/18 1630 Bedside Blood Glucose 177 mg/dl H 10/22/18 1130 Bedside Blood Glucose 181 mg/dl H 10/22/18 0631 Objective Last 24 Hour Vital Signs Date Time Temp Pulse Resp B/P (MAP) Pulse Ox O2 Delivery O2 Flow Rate FiO2 10/23/18 07:32 89 25 100 Mechanical Ventilator 40 10/23/18 07:29 92 37 100 Mechanical Ventilator 40 10/23/18 07:26 91 33 40 10/23/18 07:00 81 28 112/55 (74) 100 10/23/18 06:30 90 28 105/38 (60) 100 10/23/18 06:00 92 28 106/38 (60) 100 10/23/18 05:48 110/56 10/23/18 05:30 93 27 107/47 (67) 100 10/23/18 05:00 93 29 40 10/23/18 05:00 95 30 110/56 (74) 100 10/23/18 04:30 91 31 111/51 (71) 100 10/23/18 04:00 98.6 91 31 82/24 (43) 100 10/23/18 04:00 95 10/23/18 04:00 40 10/23/18 04:00 Mechanical Ventilator Room Air 10/23/18 03:54 94 28 40 10/23/18 03:30 91 31 111/55 (73) 100 10/23/18 03:00 95 31 110/50 (70) 100 10/23/18 02:30 95 29 96/60 (72) 100 10/23/18 02:00 96 32 101/45 (63) 100 10/23/18 01:38 94 23 100 Mechanical Ventilator 40 10/23/18 01:30 93 29 110/50 (70) 100 10/23/18 01:28 95 24 100 Mechanical Ventilator 40 10/23/18 01:28 95 24 40 10/23/18 01:00 91 29 110/52 (71) 100 10/23/18 00:00 91 26 100/46 (64) 100 10/23/18 00:00 Mechanical Ventilator Room Air 10/22/18 23:30 98.1 93 26 90/56 (67) 99 10/22/18 23:30 95 28 40 10/22/18 23:00 93 26 112/60 (77) 100 10/22/18 22:30 93 26 112/60 (77) 100 10/22/18 22:00 95 26 115/60 (78) 100 10/22/18 21:30 95 20 110/54 (72) 100 10/22/18 21:00 97 20 112/54 (73) 100 10/22/18 20:52 91 15 Mechanical Ventilator 40 10/22/18 20:39 92 28 40 10/22/18 20:30 97 25 114/54 (74) 100 10/22/18 20:00 Mechanical Ventilator Room Air 10/22/18 20:00 40 10/22/18 20:00 98.0 91 19 105/53 (70) 100 10/22/18 20:00 96 10/22/18 19:49 99/56 10/22/18 19:30 91 15 100 Mechanical Ventilator 40 10/22/18 19:30 91 19 105/53 (70) 100 10/22/18 19:19 88 22 40 10/22/18 19:19 88 20 100 Mechanical Ventilator 40 10/22/18 19:00 89 28 91/51 (64) 100 10/22/18 18:30 96 28 97/49 (65) 100 10/22/18 18:00 96 27 100/52 (68) 100 10/22/18 17:30 94 21 91/98 (96) 100 10/22/18 17:13 95 28 40 10/22/18 17:00 97 12 103/61 (75) 100 10/22/18 16:30 97 21 107/52 (70) 100 10/22/18 16:05 97 24 40 10/22/18 16:00 98.6 97 24 101/57 (72) 100 10/22/18 16:00 95 10/22/18 16:00 40 10/22/18 16:00 Room Air 10/22/18 15:30 96 25 88/49 (62) 100 10/22/18 15:00 92 20 98/52 (67) 100 10/22/18 14:30 92 20 91/48 (62) 100 10/22/18 14:00 92 20 94/47 (63) 100 10/22/18 13:30 92 19 96/46 (63) 100 10/22/18 13:00 91 19 89/42 (58) 100 10/22/18 12:43 96/48 10/22/18 12:40 96 23 100 Mechanical Ventilator 40 10/22/18 12:35 96 24 100 Mechanical Ventilator 40 10/22/18 12:35 96 27 40 10/22/18 12:30 92 20 96/48 (64) 100 10/22/18 12:00 98.7 97 28 103/50 (67) 100 10/22/18 12:00 Room Air 10/22/18 12:00 103/50 10/22/18 12:00 40 10/22/18 12:00 95 10/22/18 11:30 96 24 97/48 (64) 100 10/22/18 11:05 98 28 40 10/22/18 11:00 97 27 100/50 (67) 100 10/22/18 10:30 96 26 94/49 (64) 100 10/22/18 10:00 98 26 98/47 (64) 100 10/22/18 09:30 98 25 107/44 (65) 100 10/22/18 09:24 92/43 10/22/18 09:00 96 25 92/43 (59) 100 10/22/18 08:45 96 25 40 10/22/18 08:30 97 25 106/61 (76) 100 Intake and Output 10/22/18 10/23/18 19:00 07:00 Intake Total 1845.443 ml 2255.711 ml Output Total 20 ml Balance 1845.443 ml 2235.711 ml Free Water 50 ml 30 ml IV Total 1595.443 ml 1745.711 ml Tube Feeding 160 ml 480 ml Other 40 ml Output Urine Total 0 ml Stool Total 20 ml Laboratory Tests 10/22/18 12:05: Activated Partial Thromboplast Time 80H, Sodium Level 116*L, Potassium Level 4.3 , Chloride Level 82L, Carbon Dioxide Level 18L, Anion Gap 16H, Blood Urea Nitrogen 88H, Creatinine 5.8H, Estimat Glomerular Filtration Rate , Glucose Level 185H, Calcium Level 6.0L 10/23/18 04:37: Activated Partial Thromboplast Time 61H, Sodium Level 118*L, Potassium Level 4.7 , Chloride Level 83L, Carbon Dioxide Level 14L, Anion Gap 21H, Blood Urea Nitrogen 95H, Creatinine 6.0H, Estimat Glomerular Filtration Rate , Glucose Level 243H, Calcium Level 5.6*L, White Blood Count 24.3*H, Red Blood Count 3.89L , Hemoglobin 10.6L, Hematocrit 33.3L, Mean Corpuscular Volume 86, Mean Corpuscular Hemoglobin 27.3, Mean Corpuscular Hemoglobin Concent 31.8L, Red Cell Distribution Width 19.9H, Platelet Count 110L, Mean Platelet Volume 8.1, Neutrophils (%) (Auto) , Lymphocytes (%) (Auto) , Monocytes (%) (Auto) , Eosinophils (%) (Auto) , Basophils (%) (Auto) , Neutrophils % (Manual) [Pending] , Lymphocytes % (Manual) [Pending], Platelet Estimate [Pending], Platelet Morphology [Pending], Total Bilirubin 4.8H, Direct Bilirubin 4.2H, Aspartate Amino Transf (AST/SGOT) 885H, Alanine Aminotransferase (ALT/SGPT) 651H, Alkaline Phosphatase 224H, Ammonia 62H, Total Protein 5.4L, Albumin 2.1L, Globulin 3.3, Albumin/Globulin Ratio 0.6L, Amylase Level 171H, Lipase 532H Height (Feet): 5 Height (Inches): 2.00 Weight (Pounds): 148 General Appearance: severe distress Neck: normal alignment Cardiovascular: tachycardia Respiratory/Chest: decreased breath sounds Abdomen: normal bowel sounds Edema: 1+ Arm (L), 1+ Arm (R), 1+ Leg (L), 1+ Leg (R), 1+ Pedal (L), 1+ Pedal ( R), 1+ Generalized Objective Current Medications Medications (Trade) Dose Ordered Sig/Ashely Route PRN Reason Start Time Stop Time Status Last Admin Dose Admin Acetaminophen (Tylenol) 650 mg Q6H PRN ORAL Mild Pain/Temp > 100.5 10/18/18 16:30 11/08/18 04:23 Albuterol/ Ipratropium (Albuterol/ Ipratropium) 3 ml Q4H PRN HHN Shortness of Breath 10/18/18 17:30 10/23/18 13:29 Albuterol/ Ipratropium (Albuterol/ Ipratropium) 3 ml Q6HRT HHN 10/18/18 19:00 10/23/18 18:59 10/23/18 07:26 Aspirin (Ecotrin) 81 mg DAILY ORAL 10/19/18 09:00 11/09/18 08:59 10/22/18 09:25 Atorvastatin Calcium (Lipitor) 40 mg BEDTIME ORAL 10/18/18 21:00 11/09/18 20:59 10/22/18 21:03 Calcium Carbonate (Tums) 500 mg BID GT 10/20/18 18:00 11/09/18 08:59 10/22/18 17:59 Chlorhexidine Gluconate (Anai-Hex 2%) 1 applic DAILY@2000 TOPIC 10/18/18 20:00 11/12/18 19:59 10/22/18 20:22 Dextrose 1,000 ml @ 30 mls/hr Q24H IV 10/19/18 08:15 11/18/18 08:14 10/22/18 09:25 Dextrose (Dextrose 50%) 25 ml Q30M PRN IV Hypoglycemia 10/18/18 16:45 11/16/18 08:44 Dextrose (Dextrose 50%) 50 ml Q30M PRN IV Hypoglycemia 10/18/18 16:45 11/16/18 08:44 10/19/18 06:26 Dobutamine HCl 250 ml @ 10.05 mls/ hr Q24H IV 10/19/18 11:40 11/18/18 11:39 10/22/18 12:43 Docusate Sodium (Colace) 100 mg TWICE A DAY GT 10/20/18 18:00 11/09/18 08:59 10/22/18 17:58 Dopamine HCl/ Dextrose 250 ml @ 0 mls/hr Q24H IV 10/19/18 12:45 11/18/18 12:44 10/20/18 17:43 Fluconazole/ Sodium Chloride 100 ml @ 100 mls/hr Q24H IV 10/22/18 20:00 10/29/18 19:59 10/22/18 20:38 Haloperidol Lactate (Haldol) 5 mg Q6H PRN IM Agitation 10/18/18 17:00 11/17/18 16:59 Heparin Sodium/ Dextrose 500 ml @ 9.398 mls/ hr ADJUST PER PROTOCOL IV 10/23/18 05:45 11/22/18 05:44 10/23/18 05:34 Insulin Aspart (NovoLOG) BEFORE MEALS AND HS SUBQ 10/18/18 16:30 11/16/18 11:29 10/23/18 06:29 Latanoprost (Xalatan) 1 drop BEDTIME BOTH EYES 10/18/18 21:00 11/10/18 20:59 10/22/18 21:09 Meropenem 500 mg/ Sodium Chloride 50 ml @ 100 mls/hr Q24HRS IVPB 10/20/18 00:00 10/25/18 00:00 10/23/18 00:23 Norepinephrine Bitartrate 16 mg/ Dextrose 500 ml @ 0 mls/hr Q24H IV 10/20/18 18:00 11/19/18 17:59 10/23/18 05:48 Octreotide Acetate (SandoSTATIN) 50 mcg Q12H SUBQ 10/20/18 12:00 11/18/18 07:59 10/23/18 00:23 Ondansetron HCl (Zofran) 4 mg Q8H PRN IVP Nausea & Vomiting 10/18/18 17:00 11/17/18 16:59 Pantoprazole (Protonix) 40 mg ACBREAKFAST ORAL 10/19/18 06:30 11/09/18 08:59 10/23/18 06:28 Polymyxin B Sulfate 323428 units/Dextrose 250 ml @ 250 mls/hr EVERY 12 HOURS IVPB 10/20/18 09:00 10/27/18 08:59 10/22/18 21:02 Promethazine HCl (Phenergan [place]) 6.25 mg Q6H PRN ORAL For Cough 10/18/18 16:45 11/10/18 04:32 Vancomycin HCl (Firvanq) 125 mg FOUR TIMES A DAY ORAL 10/22/18 21:00 10/29/18 20:59 10/22/18 21:03 Vancomycin HCl (Vanco rx to dose) 1 ea DAILY PRN MISC Per rx protocol 10/19/18 23:30 11/18/18 23:29 Vasopressin 100 units/Sodium Chloride 100 ml @ 2.4 mls/hr Q24H IV 10/22/18 15:00 11/21/18 14:59 10/22/18 15:51 Barry Schmitt MD Oct 23, 2018 08:08
--- NOTE | 2018-10-23 08:45 | NUR ---
NURSE NOTES: Dr. Porter made aware of patient calcium level of 5.6 and sodium of 118, requested to contact [facility] hemodialysis for a stat dialysis this afternoon, no further verbal orders given at this time, will follow orders
--- NOTE | 2018-10-23 09:10 | NUR ---
NURSE NOTES: [facility] called and left message, message sent from exchange to hemodialysis nurse in the field.
[2018-10-23] MEDS: POLYMYXIN B SULFATE IVPB SCH ×2 (09:36→21:07)
[2018-10-23] MEDS: D5W IVPB SCH ×2 (09:36→21:07)
[2018-10-23] MEDS: Docusate 100mg/10ml Liq GT SCH ×2 (09:37→17:35)
[2018-10-23] MEDS: Vancomycin oral 125mg/2.5ml ORAL SCH ×4 (09:37→21:07)
[2018-10-23] MEDS: Aspirin EC 81mg tab ORAL SCH (09:37)
[2018-10-23] MEDS: Tums 500mg GT SCH ×2 (09:38→17:34)
--- NOTE | 2018-10-23 10:00 | NUR ---
NURSE NOTES: Dr. Hawley updated at the bedside regarding patient status, made aware of patient US report and no verbal orders given, he will place orders.
--- NOTE | 2018-10-23 12:25 | General Progress Note ---
Assessment/Plan Problem List: (1) Elevated LFTs ICD Codes: R94.5 - Abnormal results of liver function studies SNOMED: 620045361, 717897804 (2) Fatty liver ICD Codes: K76.0 - Fatty (change of) liver, not elsewhere classified SNOMED: 157418302 (3) History of cholecystectomy ICD Codes: Z90.49 - Acquired absence of other specified parts of digestive tract SNOMED: 17947925, 464716762 (4) Thrombocytopenia ICD Codes: D69.6 - Thrombocytopenia, unspecified SNOMED: 915480553 (5) possible panreatitis (6) Sepsis ICD Codes: A41.9 - Sepsis, unspecified organism SNOMED: 15854346 (7) Ventilator dependence ICD Codes: Z99.11 - Dependence on respirator [ventilator] status SNOMED: 458115770 (8) Hyponatremia ICD Codes: E87.1 - Hypo-osmolality and hyponatremia SNOMED: 30504251 (9) Respiratory failure, acute ICD Codes: J96.00 - Acute respiratory failure, unspecified whether with hypoxia or hypercapnia SNOMED: 34193430 (10) Acute metabolic encephalopathy ICD Codes: G93.41 - Metabolic encephalopathy SNOMED: 98569667, 458420277 (11) Pneumonia ICD Codes: J18.9 - Pneumonia, unspecified organism SNOMED: 605733238 (12) Hypotension ICD Codes: I95.9 - Hypotension, unspecified SNOMED: 66291303 (13) CAD (coronary artery disease) ICD Codes: I25.10 - Atherosclerotic heart disease of [place] coronary artery without angina pectoris SNOMED: 18474766 Assessment/Plan KUB and us reviewed repeat labs supportive care rectal tube bowel regimen fu labs Subjective ROS Limited/Unobtainable: No Allergies: Coded Allergies: PENICILLINS (Verified Allergy, Unknown, 10/09/18) Objective Last 24 Hour Vital Signs Date Time Temp Pulse Resp B/P (MAP) Pulse Ox O2 Delivery O2 Flow Rate FiO2 10/23/18 11:30 90 30 117/43 (67) 100 10/23/18 11:00 91 28 109/68 (82) 100 10/23/18 10:57 88 25 40 10/23/18 10:30 91 26 112/49 (70) 100 10/23/18 10:00 90 26 107/56 (73) 100 10/23/18 09:30 93 27 106/48 (67) 100 10/23/18 09:24 91 28 40 10/23/18 09:00 92 24 111/55 (73) 100 10/23/18 08:30 93 23 109/49 (69) 100 10/23/18 08:00 90 10/23/18 08:00 98.7 92 24 112/50 (70) 100 10/23/18 08:00 Mechanical Ventilator 10/23/18 08:00 40 10/23/18 07:32 89 25 100 Mechanical Ventilator 40 10/23/18 07:30 91 28 112/55 (74) 100 10/23/18 07:29 92 37 100 Mechanical Ventilator 40 10/23/18 07:26 91 33 40 10/23/18 07:00 81 28 112/55 (74) 100 10/23/18 06:30 90 28 105/38 (60) 100 10/23/18 06:00 92 28 106/38 (60) 100 10/23/18 05:48 110/56 10/23/18 05:30 93 27 107/47 (67) 100 10/23/18 05:00 93 29 40 10/23/18 05:00 95 30 110/56 (74) 100 10/23/18 04:30 91 31 111/51 (71) 100 10/23/18 04:00 98.6 91 31 82/24 (43) 100 10/23/18 04:00 95 10/23/18 04:00 40 10/23/18 04:00 Mechanical Ventilator Room Air 10/23/18 03:54 94 28 40 10/23/18 03:30 91 31 111/55 (73) 100 10/23/18 03:00 95 31 110/50 (70) 100 10/23/18 02:30 95 29 96/60 (72) 100 10/23/18 02:00 96 32 101/45 (63) 100 10/23/18 01:38 94 23 100 Mechanical Ventilator 40 10/23/18 01:30 93 29 110/50 (70) 100 10/23/18 01:28 95 24 100 Mechanical Ventilator 40 10/23/18 01:28 95 24 40 10/23/18 01:00 91 29 110/52 (71) 100 10/23/18 00:00 91 26 100/46 (64) 100 10/23/18 00:00 Mechanical Ventilator Room Air 10/22/18 23:30 98.1 93 26 90/56 (67) 99 10/22/18 23:30 95 28 40 10/22/18 23:00 93 26 112/60 (77) 100 10/22/18 22:30 93 26 112/60 (77) 100 10/22/18 22:00 95 26 115/60 (78) 100 10/22/18 21:30 95 20 110/54 (72) 100 10/22/18 21:00 97 20 112/54 (73) 100 10/22/18 20:52 91 15 Mechanical Ventilator 40 10/22/18 20:39 92 28 40 10/22/18 20:30 97 25 114/54 (74) 100 10/22/18 20:00 Mechanical Ventilator Room Air 10/22/18 20:00 40 10/22/18 20:00 98.0 91 19 105/53 (70) 100 10/22/18 20:00 96 10/22/18 19:49 99/56 10/22/18 19:30 91 15 100 Mechanical Ventilator 40 10/22/18 19:30 91 19 105/53 (70) 100 10/22/18 19:19 88 22 40 10/22/18 19:19 88 20 100 Mechanical Ventilator 40 10/22/18 19:00 89 28 91/51 (64) 100 10/22/18 18:30 96 28 97/49 (65) 100 10/22/18 18:00 96 27 100/52 (68) 100 10/22/18 17:30 94 21 91/98 (96) 100 10/22/18 17:13 95 28 40 10/22/18 17:00 97 12 103/61 (75) 100 10/22/18 16:30 97 21 107/52 (70) 100 10/22/18 16:05 97 24 40 10/22/18 16:00 98.6 97 24 101/57 (72) 100 10/22/18 16:00 95 10/22/18 16:00 40 10/22/18 16:00 Room Air 10/22/18 15:30 96 25 88/49 (62) 100 10/22/18 15:00 92 20 98/52 (67) 100 10/22/18 14:30 92 20 91/48 (62) 100 10/22/18 14:00 92 20 94/47 (63) 100 10/22/18 13:30 92 19 96/46 (63) 100 10/22/18 13:00 91 19 89/42 (58) 100 10/22/18 12:43 96/48 10/22/18 12:40 96 23 100 Mechanical Ventilator 40 10/22/18 12:35 96 24 100 Mechanical Ventilator 40 10/22/18 12:35 96 27 40 10/22/18 12:30 92 20 96/48 (64) 100 Intake and Output 10/22/18 10/23/18 18:59 06:59 Intake Total 2178.044 ml 2309.326 ml Output Total 20 ml Balance 2178.044 ml 2289.326 ml Free Water 50 ml 30 ml IV Total 1888.044 ml 1839.326 ml Tube Feeding 200 ml 440 ml Other 40 ml Output Urine Total 0 ml Stool Total 20 ml Laboratory Tests 10/23/18 04:37: White Blood Count 24.3*H, Red Blood Count 3.89L, Hemoglobin 10.6L, Hematocrit 33.3L, Mean Corpuscular Volume 86, Mean Corpuscular Hemoglobin 27.3, Mean Corpuscular Hemoglobin Concent 31.8L, Red Cell Distribution Width 19.9H, Platelet Count 110L, Mean Platelet Volume 8.1, Neutrophils (%) (Auto) , Lymphocytes (%) (Auto) , Monocytes (%) (Auto) , Eosinophils (%) (Auto) , Basophils (%) (Auto) , Differential Total Cells Counted 100, Neutrophils % ( Manual) 87H, Lymphocytes % (Manual) 3L, Monocytes % (Manual) 9, Eosinophils % ( Manual) 0, Basophils % (Manual) 0, Band Neutrophils 1, Nucleated Red Blood Cells 3, Platelet Estimate DecreasedL, Platelet Morphology Normal, Polychromasia 1+, Hypochromasia 1+, Anisocytosis 2+, Activated Partial Thromboplast Time 61H, Sodium Level 118*L, Potassium Level 4.7, Chloride Level 83L, Carbon Dioxide Level 14L, Anion Gap 21H, Blood Urea Nitrogen 95H, Creatinine 6.0H, Estimat Glomerular Filtration Rate , Glucose Level 243H, Calcium Level 5.6*L, Total Bilirubin 4.8H, Direct Bilirubin 4.2H, Aspartate Amino Transf (AST/SGOT) 885H, Alanine Aminotransferase (ALT/SGPT) 651H, Alkaline Phosphatase 224H, Ammonia 62H, Total Protein 5.4L, Albumin 2.1L, Globulin 3.3, Albumin/Globulin Ratio 0.6L, Amylase Level 171H, Lipase 532H Height (Feet): 5 Height (Inches): 2.00 Weight (Pounds): 148 General Appearance: lethargic EENT: normal ENT inspection Neck: supple Cardiovascular: tachycardia Respiratory/Chest: decreased breath sounds Abdomen: soft, hypoactive bowel sounds, distended Extremities: non-tender Baldemar Hawley MD Oct 23, 2018 12:25
[2018-10-23] MEDS: DOPamine 400mg/250ml 250 ML IV SCH (12:45)
--- NOTE | 2018-10-23 12:45 | NUR ---
NURSE NOTES: Dr. Key updated regarding patient status, no verbal orders given at this time, will continue plan of care.
--- NOTE | 2018-10-23 13:15 | Pulmonolgy Critical Care Note ---
Critical Care - Asmt/Plan Assessment/Plan: Pulmonary CCM Progress Note Critical Care - Asmt/Plan Problems: (1) Respiratory failure, acute (2) Ventilator dependence (3) CHF (congestive heart failure) (4) CAD (coronary artery disease) (5) NSTEMI (non-ST elevated myocardial infarction) (6) Respiratory acidosis (7) Hemoptysis (8) Hypoglycemia (9) Pneumonia (10) Hypotension (11) Elevated d-dimer (12) Acute kidney injury superimposed on CKD Assessment & Plan: S/P initiation of HD (13) Hyponatremia (14) Sepsis Respiratory: monitor respiratory rate, adjust FIO2, other - HHN Cardiac: continue pressors - NE, Dobut, add Vaso 0.04, continue to monitor HR/ BP Renal: keep IV fluid - 3% NS 50/hr for [address] Porter, check electrolytes, other - Unstable for HD Infectious Disease: check cultures, continue antibiotics - Duong/Vanco Gastrointestinal: hold feedings Endocrine: monitor blood sugar, other - F/U ENDO recs Hematologic: monitor H/H Prophylaxis: Protonix, Heparin - IVUH' Disposition: keep in ICU Time Spent (Minutes): 40 Notes Reviewed: remote mortgage underwriter, cardio, renal, ID, GI, neuro, other - ENDO Discussed with: nurses, consultants, other - Prognosis poor Critical Care - Objective Vital Signs Noted Status: obtunded, other - intubated Condition: critical HEENT: atraumatic, normocephalic Lungs: rhonchi Heart: HR/BP unstable Abdomen: soft, non-tender, active bowel sounds Extremities: edema - 2+ Micro: Critical Care - Subjective ROS Limited/Unobtainable: Yes ICU Day: 5 Intubation Day: 4 Interval Events: Na 116 WCt inc LFT's worse Unable to dialyze Condition: critical IV Access: PICC, central - R Ij Hugh EKG Rhythm: Sinus Rhythm FI02: 40 Vent Support Breath Rate: 20 Vent Support Mode: AC Vent Tidal Volume: 500 Sputum Amount: Small PEEP: 5.0 PIP: 31 Secretions: small thin Fluids: S/P 3% 500 - finished, Na 116 Drips: NE 30, DOBUT 2.5, IVUH Tube Feeding Amount: 0 Subjective: ZACHARY CXR: No change Head CT neg ET-Tube: 7.5 ET Position: 23 Labs: Laboratory Tests Test 10/21/18 20:50 10/21/18 21:00 10/22/18 04:00 10/22/18 12:05 Sodium Level 116 MMOL/L (136-145) *L 117 MMOL/L (136-145) *L 116 MMOL/L (136-145) *L Potassium Level 4.6 MMOL/L (3.5-5.1) 4.6 MMOL/L (3.5-5.1) 4.3 MMOL/L (3.5-5.1) Chloride Level 80 MMOL/L (98-107) L 80 MMOL/L (98-107) L 82 MMOL/L (98-107) L Carbon Dioxide Level 18 MMOL/L (21-32) L 19 MMOL/L (21-32) L 18 MMOL/L (21-32) L Anion Gap 19 mmol/L (5-15) H 19 mmol/L (5-15) H 16 mmol/L (5-15) H Blood Urea Nitrogen 86 mg/dL (7-18) H 87 mg/dL (7-18) H 88 mg/dL (7-18) H Creatinine 5.7 MG/DL (0.55-1.30) H 5.8 MG/DL (0.55-1.30) H 5.8 MG/DL (0.55-1.30) H Estimat Glomerular Filtration Rate mL/min (>60) mL/min (>60) mL/min (>60) Glucose Level 180 MG/DL (74-106) H 135 MG/DL (74-106) H 185 MG/DL (74-106) H Calcium Level 5.8 MG/DL (8.5-10.1) *L 6.0 MG/DL (8.5-10.1) L 6.0 MG/DL (8.5-10.1) L Total Bilirubin 4.1 MG/DL (0.2-1.0) H 4.0 MG/DL (0.2-1.0) H Direct Bilirubin 3.5 MG/DL (0.0-0.3) H 3.4 MG/DL (0.0-0.3) H Aspartate Amino Transf (AST/SGOT) 2107 U/L (15-37) H 2052 U/L (15-37) H Alanine Aminotransferase (ALT/SGPT) 888 U/L (12-78) H 883 U/L (12-78) H Alkaline Phosphatase 189 U/L (46-116) H 186 U/L (46-116) H Total Protein 6.0 G/DL (6.4-8.2) L 5.8 G/DL (6.4-8.2) L Albumin 2.2 G/DL (3.4-5.0) L 2.2 G/DL (3.4-5.0) L Globulin 3.8 g/dL 3.6 g/dL Albumin/Globulin Ratio 0.6 (1.0-2.7) L 0.6 (1.0-2.7) L White Blood Count 26.6 K/UL (4.8-10.8) *H Red Blood Count 3.81 M/UL (4.70-6.10) L Hemoglobin 10.5 G/DL (14.2-18.0) L Hematocrit 31.6 % (42.0-52.0) L Mean Corpuscular Volume 83 FL (80-99) Mean Corpuscular Hemoglobin 27.5 PG (27.0-31.0) Mean Corpuscular Hemoglobin Concent 33.2 G/DL (32.0-36.0) Red Cell Distribution Width 18.9 % (11.6-14.8) H Platelet Count 106 K/UL (150-450) L Mean Platelet Volume 8.8 FL (6.5-10.1) Neutrophils (%) (Auto) % (45.0-75.0) Lymphocytes (%) (Auto) % (20.0-45.0) Monocytes (%) (Auto) % (1.0-10.0) Eosinophils (%) (Auto) % (0.0-3.0) Basophils (%) (Auto) % (0.0-2.0) Differential Total Cells Counted 100 Neutrophils % (Manual) 93 % (45-75) H Lymphocytes % (Manual) 4 % (20-45) L Monocytes % (Manual) 3 % (1-10) Eosinophils % (Manual) 0 % (0-3) Basophils % (Manual) 0 % (0-2) Band Neutrophils 0 % (0-8) Nucleated Red Blood Cells 7 /100 WBC Platelet Estimate Decreased L Platelet Morphology Normal Anisocytosis 1+ Hull Cells 1+ Activated Partial Thromboplast Time 62 SEC (23-33) H 80 SEC (23-33) H Random Vancomycin Level 16.6 ug/mL Critical Care - Objective Last 24 Hour Vital Signs Date Time Temp Pulse Resp B/P (MAP) Pulse Ox O2 Delivery O2 Flow Rate FiO2 10/23/18 12:59 91 35 40 10/23/18 11:30 90 30 117/43 (67) 100 10/23/18 11:00 91 28 109/68 (82) 100 10/23/18 10:57 88 25 40 10/23/18 10:30 91 26 112/49 (70) 100 10/23/18 10:00 90 26 107/56 (73) 100 10/23/18 09:30 93 27 106/48 (67) 100 10/23/18 09:24 91 28 40 10/23/18 09:00 92 24 111/55 (73) 100 10/23/18 08:30 93 23 109/49 (69) 100 10/23/18 08:00 90 10/23/18 08:00 98.7 92 24 112/50 (70) 100 10/23/18 08:00 Mechanical Ventilator 10/23/18 08:00 40 10/23/18 07:32 89 25 100 Mechanical Ventilator 40 10/23/18 07:30 91 28 112/55 (74) 100 10/23/18 07:29 92 37 100 Mechanical Ventilator 40 10/23/18 07:26 91 33 40 10/23/18 07:00 81 28 112/55 (74) 100 10/23/18 06:30 90 28 105/38 (60) 100 10/23/18 06:00 92 28 106/38 (60) 100 10/23/18 05:48 110/56 10/23/18 05:30 93 27 107/47 (67) 100 10/23/18 05:00 93 29 40 10/23/18 05:00 95 30 110/56 (74) 100 10/23/18 04:30 91 31 111/51 (71) 100 10/23/18 04:00 98.6 91 31 82/24 (43) 100 10/23/18 04:00 95 10/23/18 04:00 40 10/23/18 04:00 Mechanical Ventilator Room Air 10/23/18 03:54 94 28 40 10/23/18 03:30 91 31 111/55 (73) 100 10/23/18 03:00 95 31 110/50 (70) 100 10/23/18 02:30 95 29 96/60 (72) 100 10/23/18 02:00 96 32 101/45 (63) 100 10/23/18 01:38 94 23 100 Mechanical Ventilator 40 10/23/18 01:30 93 29 110/50 (70) 100 10/23/18 01:28 95 24 100 Mechanical Ventilator 40 10/23/18 01:28 95 24 40 10/23/18 01:00 91 29 110/52 (71) 100 10/23/18 00:00 91 26 100/46 (64) 100 10/23/18 00:00 Mechanical Ventilator Room Air 10/22/18 23:30 98.1 93 26 90/56 (67) 99 10/22/18 23:30 95 28 40 10/22/18 23:00 93 26 112/60 (77) 100 10/22/18 22:30 93 26 112/60 (77) 100 10/22/18 22:00 95 26 115/60 (78) 100 10/22/18 21:30 95 20 110/54 (72) 100 10/22/18 21:00 97 20 112/54 (73) 100 10/22/18 20:52 91 15 Mechanical Ventilator 40 10/22/18 20:39 92 28 40 10/22/18 20:30 97 25 114/54 (74) 100 10/22/18 20:00 Mechanical Ventilator Room Air 10/22/18 20:00 40 10/22/18 20:00 98.0 91 19 105/53 (70) 100 10/22/18 20:00 96 10/22/18 19:49 99/56 10/22/18 19:30 91 15 100 Mechanical Ventilator 40 10/22/18 19:30 91 19 105/53 (70) 100 10/22/18 19:19 88 22 40 10/22/18 19:19 88 20 100 Mechanical Ventilator 40 10/22/18 19:00 89 28 91/51 (64) 100 10/22/18 18:30 96 28 97/49 (65) 100 10/22/18 18:00 96 27 100/52 (68) 100 10/22/18 17:30 94 21 91/98 (96) 100 10/22/18 17:13 95 28 40 10/22/18 17:00 97 12 103/61 (75) 100 10/22/18 16:30 97 21 107/52 (70) 100 10/22/18 16:05 97 24 40 10/22/18 16:00 98.6 97 24 101/57 (72) 100 10/22/18 16:00 95 10/22/18 16:00 40 10/22/18 16:00 Room Air 10/22/18 15:30 96 25 88/49 (62) 100 10/22/18 15:00 92 20 98/52 (67) 100 10/22/18 14:30 92 20 91/48 (62) 100 10/22/18 14:00 92 20 94/47 (63) 100 10/22/18 13:30 92 19 96/46 (63) 100 Accucheck: 266 Critical Care - Subjective ROS Limited/Unobtainable: No Condition: stable FI02: 40 Vent Support Breath Rate: 20 Vent Support Mode: AC Vent Tidal Volume: 500 Sputum Amount: Scant PEEP: 5.0 PIP: 37 Tube Feeding Amount: 40 I&O: Intake and Output 10/22/18 10/23/18 18:59 06:59 Intake Total 2178.044 ml 2309.326 ml Output Total 20 ml Balance 2178.044 ml 2289.326 ml Free Water 50 ml 30 ml IV Total 1888.044 ml 1839.326 ml Tube Feeding 200 ml 440 ml Other 40 ml Output Urine Total 0 ml Stool Total 20 ml ET-Tube: 7.5 ET Position: 23 Erick Traylor MD Oct 23, 2018 13:15
--- NOTE | 2018-10-23 14:04 | Cardiology Progress Note ---
Assessment/Plan Assessment/Plan cardiology critical care 1. Hypoglycemia secondary to medication. 2. Diabetes mellitus previously. 3. Acute Respiratory inusf / hemoptysis 4. History of ischemic cardiomyopathy with ejection fraction of 40%. 5. Mitral regurgitation, [id number] degree on recent echocardiogram last week. 6. Moderate tricuspid regurgitation. 7. Mild pulmonary hypertension with 43 through 48. 8. Pleural effusions history. 9. Abnormal gastric endoscopy, suspicious for malignancy with submucosal resection. 10. Aortic stenosis. 11. Hyperlipidemia. 12. Prostate cancer. 13. Abnormal facial asymmetry. 14. CAD 15. hypotension 16. NSTEMI demand related vs PE related doubt acs 17. acute on chronic renal failure 18. metabolic acidosis 19. hemiparesis 20. hypotension 21. wide pusle pressure imporved 22. abn lft probable shock liver 23. profound hyponatremia v/q was ordered but not done is on heparin ct head done was not very remarkable need mri when feasible is min responsive but not follow commands noted cr increased now off dobutamine is on levophed as well echo reviewed has infor post swma and mod mr and ef probley 35-40% , rv is not enlarge ivc ws enlarged at the time was done unalbel to tolerate dialysisi as low bp yest before bu tbp littele better to daytoretry as discussed with dr gibson d/w dr gbison yes t neuro input appreciated is on abx adjsuted by id bp is still low on 3 pressor lft down trending gettign 3% saline abd u/s: 1. Echogenic liver which may be fatty infiltration. Small perihepatic fluid. 2. Hbld-te-jitnxxlt right hydronephrosis. d/w family 10/22/2018 i have made son aware of the poor status we discussed resuscitative effort they wish him to be full code due to hindu reason will re attempt dialysis today if fail will rediscuss option agian with family bp is better will try to taper down one of caroline pressor after dialysis today if toelrates Subjective ROS Limited/Unobtainable: Yes Subjective intubated on 2 pressor Objective Last 24 Hour Vital Signs Date Time Temp Pulse Resp B/P (MAP) Pulse Ox O2 Delivery O2 Flow Rate FiO2 10/23/18 13:12 84 31 100 Mechanical Ventilator 40 10/23/18 13:00 89 32 100 Mechanical Ventilator 40 10/23/18 12:59 91 35 40 10/23/18 12:45 107/66 10/23/18 11:30 90 30 117/43 (67) 100 10/23/18 11:00 91 28 109/68 (82) 100 10/23/18 10:57 88 25 40 10/23/18 10:30 91 26 112/49 (70) 100 10/23/18 10:00 90 26 107/56 (73) 100 10/23/18 09:30 93 27 106/48 (67) 100 10/23/18 09:24 91 28 40 10/23/18 09:00 92 24 111/55 (73) 100 10/23/18 08:30 93 23 109/49 (69) 100 10/23/18 08:00 90 10/23/18 08:00 98.7 92 24 112/50 (70) 100 10/23/18 08:00 Mechanical Ventilator 10/23/18 08:00 40 10/23/18 07:32 89 25 100 Mechanical Ventilator 40 10/23/18 07:30 91 28 112/55 (74) 100 10/23/18 07:29 92 37 100 Mechanical Ventilator 40 10/23/18 07:26 91 33 40 10/23/18 07:00 81 28 112/55 (74) 100 10/23/18 06:30 90 28 105/38 (60) 100 10/23/18 06:00 92 28 106/38 (60) 100 10/23/18 05:48 110/56 10/23/18 05:30 93 27 107/47 (67) 100 10/23/18 05:00 93 29 40 10/23/18 05:00 95 30 110/56 (74) 100 10/23/18 04:30 91 31 111/51 (71) 100 10/23/18 04:00 98.6 91 31 82/24 (43) 100 10/23/18 04:00 95 10/23/18 04:00 40 10/23/18 04:00 Mechanical Ventilator Room Air 10/23/18 03:54 94 28 40 10/23/18 03:30 91 31 111/55 (73) 100 10/23/18 03:00 95 31 110/50 (70) 100 10/23/18 02:30 95 29 96/60 (72) 100 10/23/18 02:00 96 32 101/45 (63) 100 10/23/18 01:38 94 23 100 Mechanical Ventilator 40 10/23/18 01:30 93 29 110/50 (70) 100 10/23/18 01:28 95 24 100 Mechanical Ventilator 40 10/23/18 01:28 95 24 40 10/23/18 01:00 91 29 110/52 (71) 100 10/23/18 00:00 91 26 100/46 (64) 100 10/23/18 00:00 Mechanical Ventilator Room Air 10/22/18 23:30 98.1 93 26 90/56 (67) 99 10/22/18 23:30 95 28 40 10/22/18 23:00 93 26 112/60 (77) 100 10/22/18 22:30 93 26 112/60 (77) 100 10/22/18 22:00 95 26 115/60 (78) 100 10/22/18 21:30 95 20 110/54 (72) 100 10/22/18 21:00 97 20 112/54 (73) 100 10/22/18 20:52 91 15 Mechanical Ventilator 40 10/22/18 20:39 92 28 40 10/22/18 20:30 97 25 114/54 (74) 100 10/22/18 20:00 Mechanical Ventilator Room Air 10/22/18 20:00 40 10/22/18 20:00 98.0 91 19 105/53 (70) 100 10/22/18 20:00 96 10/22/18 19:49 99/56 10/22/18 19:30 91 15 100 Mechanical Ventilator 40 10/22/18 19:30 91 19 105/53 (70) 100 10/22/18 19:19 88 22 40 10/22/18 19:19 88 20 100 Mechanical Ventilator 40 10/22/18 19:00 89 28 91/51 (64) 100 10/22/18 18:30 96 28 97/49 (65) 100 10/22/18 18:00 96 27 100/52 (68) 100 10/22/18 17:30 94 21 91/98 (96) 100 10/22/18 17:13 95 28 40 10/22/18 17:00 97 12 103/61 (75) 100 10/22/18 16:30 97 21 107/52 (70) 100 2/15/19 16:05 97 24 40 10/22/18 16:00 98.6 97 24 101/57 (72) 100 10/22/18 16:00 95 10/22/18 16:00 40 10/22/18 16:00 Room Air 10/22/18 15:30 96 25 88/49 (62) 100 10/22/18 15:00 92 20 98/52 (67) 100 10/22/18 14:30 92 20 91/48 (62) 100 General Appearance: lethargic, on vent Neck: supple Cardiovascular: normal rate Respiratory/Chest: lungs clear - ant Abdomen: normal bowel sounds Extremities: severe edema Intake and Output 10/22/18 10/23/18 18:59 06:59 Intake Total 2178.044 ml 2309.326 ml Output Total 20 ml Balance 2178.044 ml 2289.326 ml Free Water 50 ml 30 ml IV Total 1888.044 ml 1839.326 ml Tube Feeding 200 ml 440 ml Other 40 ml Output Urine Total 0 ml Stool Total 20 ml Laboratory Tests Test 10/23/18 04:37 10/23/18 11:45 White Blood Count 24.3 K/UL (4.8-10.8) *H Red Blood Count 3.89 M/UL (4.70-6.10) L Hemoglobin 10.6 G/DL (14.2-18.0) L Hematocrit 33.3 % (42.0-52.0) L Mean Corpuscular Volume 86 FL (80-99) Mean Corpuscular Hemoglobin 27.3 PG (27.0-31.0) Mean Corpuscular Hemoglobin Concent 31.8 G/DL (32.0-36.0) L Red Cell Distribution Width 19.9 % (11.6-14.8) H Platelet Count 110 K/UL (150-450) L Mean Platelet Volume 8.1 FL (6.5-10.1) Neutrophils (%) (Auto) % (45.0-75.0) Lymphocytes (%) (Auto) % (20.0-45.0) Monocytes (%) (Auto) % (1.0-10.0) Eosinophils (%) (Auto) % (0.0-3.0) Basophils (%) (Auto) % (0.0-2.0) Differential Total Cells Counted 100 Neutrophils % (Manual) 87 % (45-75) H Lymphocytes % (Manual) 3 % (20-45) L Monocytes % (Manual) 9 % (1-10) Eosinophils % (Manual) 0 % (0-3) Basophils % (Manual) 0 % (0-2) Band Neutrophils 1 % (0-8) Nucleated Red Blood Cells 3 /100 WBC Platelet Estimate Decreased L Platelet Morphology Normal Polychromasia 1+ Hypochromasia 1+ Anisocytosis 2+ Activated Partial Thromboplast Time 61 SEC (23-33) H 111 SEC (23-33) H Sodium Level 118 MMOL/L (136-145) *L Potassium Level 4.7 MMOL/L (3.5-5.1) Chloride Level 83 MMOL/L (98-107) L Carbon Dioxide Level 14 MMOL/L (21-32) L Anion Gap 21 mmol/L (5-15) H Blood Urea Nitrogen 95 mg/dL (7-18) H Creatinine 6.0 MG/DL (0.55-1.30) H Estimat Glomerular Filtration Rate mL/min (>60) Glucose Level 243 MG/DL (74-106) H Calcium Level 5.6 MG/DL (8.5-10.1) *L Total Bilirubin 4.8 MG/DL (0.2-1.0) H Direct Bilirubin 4.2 MG/DL (0.0-0.3) H Aspartate Amino Transf (AST/SGOT) 885 U/L (15-37) H Alanine Aminotransferase (ALT/SGPT) 651 U/L (12-78) H Alkaline Phosphatase 224 U/L (46-116) H Ammonia 62 umol/L (11-32) H Total Protein 5.4 G/DL (6.4-8.2) L Albumin 2.1 G/DL (3.4-5.0) L Globulin 3.3 g/dL Albumin/Globulin Ratio 0.6 (1.0-2.7) L Amylase Level 171 U/L (25-115) H Lipase 532 U/L (73-393) H Dg Key MD Oct 23, 2018 14:04
--- NOTE | 2018-10-23 14:15 | NUR ---
NURSE NOTES: Dr. Johnson at the bedside and updated on patient condition, no verbal orders given at this time, will continue plan of care.
--- NOTE | 2018-10-23 14:35 | Neurology Progress Note ---
Interim History Interim History Interim History Mr. Gann continues to be poorly responsive. He does open his eyes on loud vocal stimulation. He continues to move his left side more then the right. He continues to be on pressors. He continues to be intubated and artificially ventilated. He continues to be acutely ill. He has exhibited some tremulous movements in the left UE. There has been no significant change in his neurologic status. Review of Systems Neuro Review of Systems Unable to obtain. Objective Physical Exam Last Vital Signs Date Time Temp Pulse Resp B/P (MAP) Pulse Ox O2 Delivery O2 Flow Rate FiO2 10/23/18 13:12 84 31 100 Mechanical Ventilator 40 10/23/18 12:45 107/66 10/23/18 08:00 98.7 10/20/18 16:23 40.0 Laboratory Tests Test 10/23/18 04:37 10/23/18 11:45 White Blood Count 24.3 K/UL (4.8-10.8) *H Red Blood Count 3.89 M/UL (4.70-6.10) L Hemoglobin 10.6 G/DL (14.2-18.0) L Hematocrit 33.3 % (42.0-52.0) L Mean Corpuscular Volume 86 FL (80-99) Mean Corpuscular Hemoglobin 27.3 PG (27.0-31.0) Mean Corpuscular Hemoglobin Concent 31.8 G/DL (32.0-36.0) L Red Cell Distribution Width 19.9 % (11.6-14.8) H Platelet Count 110 K/UL (150-450) L Mean Platelet Volume 8.1 FL (6.5-10.1) Neutrophils (%) (Auto) % (45.0-75.0) Lymphocytes (%) (Auto) % (20.0-45.0) Monocytes (%) (Auto) % (1.0-10.0) Eosinophils (%) (Auto) % (0.0-3.0) Basophils (%) (Auto) % (0.0-2.0) Differential Total Cells Counted 100 Neutrophils % (Manual) 87 % (45-75) H Lymphocytes % (Manual) 3 % (20-45) L Monocytes % (Manual) 9 % (1-10) Eosinophils % (Manual) 0 % (0-3) Basophils % (Manual) 0 % (0-2) Band Neutrophils 1 % (0-8) Nucleated Red Blood Cells 3 /100 WBC Platelet Estimate Decreased L Platelet Morphology Normal Polychromasia 1+ Hypochromasia 1+ Anisocytosis 2+ Activated Partial Thromboplast Time 61 SEC (23-33) H 111 SEC (23-33) H Sodium Level 118 MMOL/L (136-145) *L Potassium Level 4.7 MMOL/L (3.5-5.1) Chloride Level 83 MMOL/L (98-107) L Carbon Dioxide Level 14 MMOL/L (21-32) L Anion Gap 21 mmol/L (5-15) H Blood Urea Nitrogen 95 mg/dL (7-18) H Creatinine 6.0 MG/DL (0.55-1.30) H Estimat Glomerular Filtration Rate mL/min (>60) Glucose Level 243 MG/DL (74-106) H Calcium Level 5.6 MG/DL (8.5-10.1) *L Total Bilirubin 4.8 MG/DL (0.2-1.0) H Direct Bilirubin 4.2 MG/DL (0.0-0.3) H Aspartate Amino Transf (AST/SGOT) 885 U/L (15-37) H Alanine Aminotransferase (ALT/SGPT) 651 U/L (12-78) H Alkaline Phosphatase 224 U/L (46-116) H Ammonia 62 umol/L (11-32) H Total Protein 5.4 G/DL (6.4-8.2) L Albumin 2.1 G/DL (3.4-5.0) L Globulin 3.3 g/dL Albumin/Globulin Ratio 0.6 (1.0-2.7) L Amylase Level 171 U/L (25-115) H Lipase 532 U/L (73-393) H Neurologic Exam Objective PHYSICAL EXAMINATION: GENERAL: He is a well-developed, relatively well-nourished gentleman , lying in an ICU bed, connected to a ventilator through an orotracheal tube. HEAD: Normocephalic and atraumatic. NECK: No neck rigidity was observed. EENT: Benign. NEUROLOGICAL EXAMINATION: MENTAL STATUS EXAMINATION: He opened his eyes on loud vocal stimuli. He however did not follow any commands. He was unable to communicate. Further mental status testing was impossible. SPEECH: Could not be tested. LANGUAGE: Could not be tested. CRANIAL NERVE EXAMINATION: II: He did not blink to threat. III, IV & : The external ocular movements were present on oculocephalic maneuvers. The pupils were 3 mm in diameter, equal, round, regular, and did not react to light. V & VII: The corneal reflexes were present bilaterally, but significantly diminished on the right side compared to the left. VIII: He did not respond to sounds and had no nystagmus. IX & X: The gag reflex was absent on manipulating the endotracheal tube. XI: The sternocleidomastoids and trapezii did not function. XII: Could not be tested adequately. MOTOR SYSTEM: The tone was normal in all four extremities. Examination of muscle mass revealed no focal wasting. Examination of power was impossible to perform on individual muscle groups; however, when deep painful stimuli were applied, he moved all four extremities. He exhibited purposeful withdrawal of the left upper extremity but non- purposeful withdrawal of the right upper extremity. In addition withdrawal was weaker on the right than on the left. SENSORY EXAMINATION: He responded appropriately to deep pain. He was unable to cooperate for other sensory modalities. REFLEXES: Trace+ and bilaterally symmetrical at the biceps, triceps, brachioradialis. 0 at both knees and ankles. The plantar response was extensor on the right and mute on the left. COORDINATION, STANCE & GAIT: Could not be tested. ABNORMAL MOVEMENTS: Tremor (7-8 Hz): ALANA Asencio Tr/4 Impression/Recommendations Diagnostic Impression 1. Mr. Marla Gann is an 83-year-old, gentleman, of unknown handedness, with a past history of multiple medical problems including hypertension, diabetes mellitus, dyslipidemia, aortic stenosis, vitamin B12 deficiency, vitamin D deficiency, coronary artery disease, congestive heart failure, and intestinal pathology. He was hospitalized on 10/09/2018 for an altered mental state related to multiple metabolic imbalances. He did improve, but then in the hospital, he has had multiple further episodes of hypoglycemia. On the morning of 10/19/18, his blood sugar dropped to 22. He has also had problems with his respiratory function, progressive renal dysfunction, and on the morning of 10/19/18 was noted to have weakness in his right upper extremity, this problem continues. 2. He continues to be poorly responsive. He does open his eyes on loud vocal stimulation. He continues to move his left side more then the right. He continues to be on pressors. He continues to be intubated and artificially ventilated. He continues to be acutely ill. He has exhibited some tremulous movements in the left UE. There has been no significant change in his neurologic status. 3. On neurological examination, at this time, he opens his eyes on loud vocal stimuli, he however does not follow any commands. He is unable to communicate and further mental status testing is impossible. 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 His deep tendon reflexes are globally diminished in the upper extremities and lost in the lower extremities. His plantar response is extensor on the right and mute on the left. He has an intermittent 7-8 Hz tremor of his LUE. 4. His laboratory data on my initial evluation revealed that his WBC count was elevated to 16,000. His hemoglobin was low at 7.2 G. His arterial blood gas revealed a pH of 7.18, a pCO2 of 43, and a pO2 of 112. His chemistry panel revealed a sodium of 133, potassium of 5.3, chloride of 91, BUN at 89, creatinine at 5.2, and blood glucose at 22. 5. His EEG done on 10/19/18 revealed a moderately severe encephalopathy with a definite toxic/metabolic component. 6. The CT of the brain was benign for acute pathology. 7. His latest laboratory tests reveal that his leukocytosis is worse with a WBC count of 24,200. He is severely hyponatremic with a Na of 121 and chloride of 83. His BUN is elevated at 81 with a creatinine of 5.5 8. The patient's history, neurological examination, and laboratory data are most compatible with a significant toxic metabolic encephalopathy that brought him into the hospital, and now possibly an acute cerebral lesion causing the right hemiparesis. 9. The left UE movement is a tremor - unlikely to be of an ictal nature. Recommendations 1. Continue present management. 2. Continue to correct toxic metabolic imbalances. 3. Try to keep the blood pressure >110 mmHg systolic. 4. When possible get MRI of brain. 5. Repeat EEG to exclude partial ictal phenomena as reason for abnormal LUE movements. 6. Observe closely in ICU setting. Abram Johnson M.D., M.S.P.H. Abram Johnson MD Oct 23, 2018 14:35
--- NOTE | 2018-10-23 15:05 | NUR ---
NURSE NOTES: Pablo Pena ( [employer]) made aware of order of Dr. Johnson for EEG- stated he will come to do the EEG today
--- NOTE | 2018-10-23 16:15 | NUR ---
NURSE NOTES: Pablo pulmonology technician arrived after order placed by Dr. Johnson for a diagnostic test, and made aware of patient having left hands and bilateral tremors, will continue plan of care.
--- NOTE | 2018-10-23 17:30 | NUR ---
NURSE NOTES: Pablo rf test technician completed test, result have been placed in chart, Awaiting hemodialysis to be started, Will plan of care.
--- NOTE | 2018-10-23 18:38 | Nephrology Progress Note ---
Assessment/Plan Problem List: (1) Acute kidney injury superimposed on CKD Assessment: no recovery (2) CHF (congestive heart failure) (3) NSTEMI (non-ST elevated myocardial infarction) (4) Hypotension (5) Pneumonia (6) Hypoglycemia (7) Respiratory failure, acute (8) Sepsis (9) Hyponatremia Assessment: worse Assessment POOR PROGNOSIS Plan HD as tolerated Discussed with RN continue pressors abxs per ID follow labs Vent support Subjective Subjective pt was seen in ICU on dialysis Objective Objective Last 24 Hour Vital Signs Date Time Temp Pulse Resp B/P (MAP) Pulse Ox O2 Delivery O2 Flow Rate FiO2 10/23/18 18:00 99 27 113/50 (71) 99 10/23/18 17:30 91 32 40 10/23/18 17:30 92 29 117/47 (70) 100 10/23/18 17:00 94 29 125/29 (61) 100 10/23/18 16:30 94 33 132/50 (77) 100 10/23/18 16:00 Mechanical Ventilator 10/23/18 16:00 40 10/23/18 16:00 90 10/23/18 16:00 98.2 92 34 121/52 (75) 100 10/23/18 15:49 122/55 10/23/18 15:45 91 32 40 10/23/18 15:30 94 32 125/56 (79) 100 10/23/18 15:00 93 21 96/53 (67) 100 10/23/18 14:30 94 28 121/53 (75) 100 10/23/18 14:00 90 21 82/52 (62) 100 10/23/18 13:30 93 20 113/57 (75) 100 10/23/18 13:12 84 31 100 Mechanical Ventilator 40 10/23/18 13:00 92 21 103/56 (72) 98 10/23/18 13:00 89 32 100 Mechanical Ventilator 40 10/23/18 12:59 91 35 40 10/23/18 12:45 107/66 10/23/18 12:30 91 30 95/77 (83) 100 10/23/18 12:00 98.6 91 25 105/52 (69) 99 10/23/18 12:00 Mechanical Ventilator 10/23/18 12:00 92 10/23/18 12:00 40 10/23/18 11:30 90 30 117/43 (67) 100 10/23/18 11:00 91 28 109/68 (82) 100 10/23/18 10:57 88 25 40 10/23/18 10:30 91 26 112/49 (70) 100 10/23/18 10:00 90 26 107/56 (73) 100 10/23/18 09:30 93 27 106/48 (67) 100 10/23/18 09:24 91 28 40 10/23/18 09:00 92 24 111/55 (73) 100 10/23/18 08:30 93 23 109/49 (69) 100 10/23/18 08:00 90 10/23/18 08:00 98.7 92 24 112/50 (70) 100 10/23/18 08:00 Mechanical Ventilator 10/23/18 08:00 40 10/23/18 07:32 89 25 100 Mechanical Ventilator 40 10/23/18 07:30 91 28 112/55 (74) 100 10/23/18 07:29 92 37 100 Mechanical Ventilator 40 10/23/18 07:26 91 33 40 10/23/18 07:00 81 28 112/55 (74) 100 10/23/18 06:30 90 28 105/38 (60) 100 10/23/18 06:00 92 28 106/38 (60) 100 10/23/18 05:48 110/56 10/23/18 05:30 93 27 107/47 (67) 100 10/23/18 05:00 93 29 40 10/23/18 05:00 95 30 110/56 (74) 100 10/23/18 04:30 91 31 111/51 (71) 100 10/23/18 04:00 98.6 91 31 82/24 (43) 100 10/23/18 04:00 95 10/23/18 04:00 40 10/23/18 04:00 Mechanical Ventilator Room Air 10/23/18 03:54 94 28 40 10/23/18 03:30 91 31 111/55 (73) 100 10/23/18 03:00 95 31 110/50 (70) 100 10/23/18 02:30 95 29 96/60 (72) 100 10/23/18 02:00 96 32 101/45 (63) 100 10/23/18 01:38 94 23 100 Mechanical Ventilator 40 10/23/18 01:30 93 29 110/50 (70) 100 10/23/18 01:28 95 24 100 Mechanical Ventilator 40 10/23/18 01:28 95 24 40 10/23/18 01:00 91 29 110/52 (71) 100 10/23/18 00:00 91 26 100/46 (64) 100 10/23/18 00:00 Mechanical Ventilator Room Air 10/22/18 23:30 98.1 93 26 90/56 (67) 99 10/22/18 23:30 95 28 40 10/22/18 23:00 93 26 112/60 (77) 100 10/22/18 22:30 93 26 112/60 (77) 100 10/22/18 22:00 95 26 115/60 (78) 100 10/22/18 21:30 95 20 110/54 (72) 100 10/22/18 21:00 97 20 112/54 (73) 100 10/22/18 20:52 91 15 Mechanical Ventilator 40 10/22/18 20:39 92 28 40 10/22/18 20:30 97 25 114/54 (74) 100 10/22/18 20:00 Mechanical Ventilator Room Air 10/22/18 20:00 40 10/22/18 20:00 98.0 91 19 105/53 (70) 100 10/22/18 20:00 96 10/22/18 19:49 99/56 10/22/18 19:30 91 15 100 Mechanical Ventilator 40 10/22/18 19:30 91 19 105/53 (70) 100 10/22/18 19:19 88 22 40 10/22/18 19:19 88 20 100 Mechanical Ventilator 40 10/22/18 19:00 89 28 91/51 (64) 100 Intake and Output 10/22/18 10/23/18 19:00 07:00 Intake Total 1845.443 ml 2311.961 ml Output Total 20 ml Balance 1845.443 ml 2291.961 ml Free Water 50 ml 30 ml IV Total 1595.443 ml 1801.961 ml Tube Feeding 160 ml 480 ml Other 40 ml Output Urine Total 0 ml Stool Total 20 ml Laboratory Tests 10/23/18 04:37: White Blood Count 24.3*H, Red Blood Count 3.89L, Hemoglobin 10.6L, Hematocrit 33.3L, Mean Corpuscular Volume 86, Mean Corpuscular Hemoglobin 27.3, Mean Corpuscular Hemoglobin Concent 31.8L, Red Cell Distribution Width 19.9H, Platelet Count 110L, Mean Platelet Volume 8.1, Neutrophils (%) (Auto) , Lymphocytes (%) (Auto) , Monocytes (%) (Auto) , Eosinophils (%) (Auto) , Basophils (%) (Auto) , Differential Total Cells Counted 100, Neutrophils % ( Manual) 87H, Lymphocytes % (Manual) 3L, Monocytes % (Manual) 9, Eosinophils % ( Manual) 0, Basophils % (Manual) 0, Band Neutrophils 1, Nucleated Red Blood Cells 3, Platelet Estimate DecreasedL, Platelet Morphology Normal, Polychromasia 1+, Hypochromasia 1+, Anisocytosis 2+, Activated Partial Thromboplast Time 61H, Sodium Level 118*L, Potassium Level 4.7, Chloride Level 83L, Carbon Dioxide Level 14L, Anion Gap 21H, Blood Urea Nitrogen 95H, Creatinine 6.0H, Estimat Glomerular Filtration Rate , Glucose Level 243H, Calcium Level 5.6*L, Total Bilirubin 4.8H, Direct Bilirubin 4.2H, Aspartate Amino Transf (AST/SGOT) 885H, Alanine Aminotransferase (ALT/SGPT) 651H, Alkaline Phosphatase 224H, Ammonia 62H, Total Protein 5.4L, Albumin 2.1L, Globulin 3.3, Albumin/Globulin Ratio 0.6L, Amylase Level 171H, Lipase 532H 10/23/18 11:45: Activated Partial Thromboplast Time 111H Height (Feet): 5 Height (Inches): 2.00 Weight (Pounds): 148 Cardiovascular: regular rhythm Respiratory/Chest: rhonchi - bilaterally Extremities: severe edema Mario oPrter MD Oct 23, 2018 18:38
--- NOTE | 2018-10-23 19:05 | NUR ---
HAND-OFF: Report given to JACQUI Middleton.
--- NOTE | 2018-10-23 19:30 | NUR ---
NURSE NOTES:Received pt awake, respond to tactile stimulation, Hemodialysis on progress,bp been stable, ST on the monitor, Pt on Levophed at 30mcg/min, Heparin drip at 4u/kg/hr, Vasopressin at 0.04u/min , pt still swollen 3-4+ edema and been wheeping. Pt also has blisters to both feet covered with drsg dry and intact . will continue to monitor.
--- NOTE | 2018-10-23 19:45 | NUR ---
NURSE NOTES:Hemodialysis was finished with zero out.
[2018-10-23] MEDS: Dyna-Hex 2% Top Sol 2oz TOPIC SCH (20:18)
[2018-10-23] MEDS: Vasopressin 100 UNITS in NS 95 ML IV SCH (20:21)
[2018-10-23] MEDS: Atorvastatin 20mg tab ORAL SCH (21:08)
[2018-10-23] MEDS ORDERED: Heparin 5000 units/ml inj IV SCH (21:15)
--- NOTE | 2018-10-23 21:25 | NUR ---
NURSE NOTES:PTT 57 secs, increase drip to 6units/kg/hr. A bolus 0f 2500 ivp was given.
--- NOTE | 2018-10-23 22:06 | General Progress Note ---
Assessment/Plan Problem List: (1) Acute metabolic encephalopathy ICD Codes: G93.41 - Metabolic encephalopathy SNOMED: 35246243, [id number] Assessment/Plan the pt lacks capacity to make decisions next of keen should makes all the decisions cont bilat restraints haldol prn for agitation rec dnr/dni Subjective Allergies: Coded Allergies: PENICILLINS (Verified Allergy, Unknown, 10/09/18) Subjective the pt is more lethargic i agitated at times Objective Last 24 Hour Vital Signs Date Time Temp Pulse Resp B/P (MAP) Pulse Ox O2 Delivery O2 Flow Rate FiO2 10/23/18 21:03 100 31 40 10/23/18 19:18 102 28 40 10/23/18 19:00 103 16 119/50 (73) 100 10/23/18 18:30 103 18 114/59 (77) 100 10/23/18 18:00 99 27 113/50 (71) 99 10/23/18 17:30 91 32 40 10/23/18 17:30 92 29 117/47 (70) 100 10/23/18 17:00 94 29 125/29 (61) 100 10/23/18 16:30 94 33 132/50 (77) 100 10/23/18 16:00 Mechanical Ventilator 10/23/18 16:00 40 10/23/18 16:00 90 10/23/18 16:00 98.2 92 34 121/52 (75) 100 10/23/18 15:49 122/55 10/23/18 15:45 91 32 40 10/23/18 15:30 94 32 125/56 (79) 100 10/23/18 15:00 93 21 96/53 (67) 100 10/23/18 14:30 94 28 121/53 (75) 100 10/23/18 14:00 90 21 82/52 (62) 100 10/23/18 13:30 93 20 113/57 (75) 100 10/23/18 13:12 84 31 100 Mechanical Ventilator 40 10/23/18 13:00 92 21 103/56 (72) 98 10/23/18 13:00 89 32 100 Mechanical Ventilator 40 10/23/18 12:59 91 35 40 10/23/18 12:45 107/66 10/23/18 12:30 91 30 95/77 (83) 100 10/23/18 12:00 98.6 91 25 105/52 (69) 99 10/23/18 12:00 Mechanical Ventilator 10/23/18 12:00 92 10/23/18 12:00 40 10/23/18 11:30 90 30 117/43 (67) 100 10/23/18 11:00 91 28 109/68 (82) 100 10/23/18 10:57 88 25 40 10/23/18 10:30 91 26 112/49 (70) 100 10/23/18 10:00 90 26 107/56 (73) 100 10/23/18 09:30 93 27 106/48 (67) 100 10/23/18 09:24 91 28 40 10/23/18 09:00 92 24 111/55 (73) 100 10/23/18 08:30 93 23 109/49 (69) 100 10/23/18 08:00 90 10/23/18 08:00 98.7 92 24 112/50 (70) 100 10/23/18 08:00 Mechanical Ventilator 10/23/18 08:00 40 10/23/18 07:32 89 25 100 Mechanical Ventilator 40 10/23/18 07:30 91 28 112/55 (74) 100 10/23/18 07:29 92 37 100 Mechanical Ventilator 40 10/23/18 07:26 91 33 40 10/23/18 07:00 81 28 112/55 (74) 100 10/23/18 06:30 90 28 105/38 (60) 100 10/23/18 06:00 92 28 106/38 (60) 100 10/23/18 05:48 110/56 10/23/18 05:30 93 27 107/47 (67) 100 10/23/18 05:00 93 29 40 10/23/18 05:00 95 30 110/56 (74) 100 10/23/18 04:30 91 31 111/51 (71) 100 10/23/18 04:00 98.6 91 31 82/24 (43) 100 10/23/18 04:00 95 10/23/18 04:00 40 10/23/18 04:00 Mechanical Ventilator Room Air 10/23/18 03:54 94 28 40 10/23/18 03:30 91 31 111/55 (73) 100 10/23/18 03:00 95 31 110/50 (70) 100 10/23/18 02:30 95 29 96/60 (72) 100 10/23/18 02:00 96 32 101/45 (63) 100 10/23/18 01:38 94 23 100 Mechanical Ventilator 40 10/23/18 01:30 93 29 110/50 (70) 100 10/23/18 01:28 95 24 100 Mechanical Ventilator 40 10/23/18 01:28 95 24 40 10/23/18 01:00 91 29 110/52 (71) 100 10/23/18 00:00 91 26 100/46 (64) 100 10/23/18 00:00 Mechanical Ventilator Room Air 10/22/18 23:30 98.1 93 26 90/56 (67) 99 10/22/18 23:30 95 28 40 10/22/18 23:00 93 26 112/60 (77) 100 10/22/18 22:30 93 26 112/60 (77) 100 Intake and Output 10/22/18 10/23/18 19:00 07:00 Intake Total 1845.443 ml 2311.961 ml Output Total 20 ml Balance 1845.443 ml 2291.961 ml Free Water 50 ml 30 ml IV Total 1595.443 ml 1801.961 ml Tube Feeding 160 ml 480 ml Other 40 ml Output Urine Total 0 ml Stool Total 20 ml Laboratory Tests 10/23/18 04:37: White Blood Count 24.3*H, Red Blood Count 3.89L, Hemoglobin 10.6L, Hematocrit 33.3L, Mean Corpuscular Volume 86, Mean Corpuscular Hemoglobin 27.3, Mean Corpuscular Hemoglobin Concent 31.8L, Red Cell Distribution Width 19.9H, Platelet Count 110L, Mean Platelet Volume 8.1, Neutrophils (%) (Auto) , Lymphocytes (%) (Auto) , Monocytes (%) (Auto) , Eosinophils (%) (Auto) , Basophils (%) (Auto) , Differential Total Cells Counted 100, Neutrophils % ( Manual) 87H, Lymphocytes % (Manual) 3L, Monocytes % (Manual) 9, Eosinophils % ( Manual) 0, Basophils % (Manual) 0, Band Neutrophils 1, Nucleated Red Blood Cells 3, Platelet Estimate DecreasedL, Platelet Morphology Normal, Polychromasia 1+, Hypochromasia 1+, Anisocytosis 2+, Activated Partial Thromboplast Time 61H, Sodium Level 118*L, Potassium Level 4.7, Chloride Level 83L, Carbon Dioxide Level 14L, Anion Gap 21H, Blood Urea Nitrogen 95H, Creatinine 6.0H, Estimat Glomerular Filtration Rate , Glucose Level 243H, Calcium Level 5.6*L, Total Bilirubin 4.8H, Direct Bilirubin 4.2H, Aspartate Amino Transf (AST/SGOT) 885H, Alanine Aminotransferase (ALT/SGPT) 651H, Alkaline Phosphatase 224H, Ammonia 62H, Total Protein 5.4L, Albumin 2.1L, Globulin 3.3, Albumin/Globulin Ratio 0.6L, Amylase Level 171H, Lipase 532H 10/23/18 11:45: Activated Partial Thromboplast Time 111H 10/23/18 20:18: Activated Partial Thromboplast Time 57H Height (Feet): 5 Height (Inches): 2.00 Weight (Pounds): 148 Danna Sanchez MD Oct 23, 2018 22:06
[2018-10-23] MEDS: Latanoprost 0.005% Opth 2.5ml Soln BOTH EYES SCH (22:16)
--- NOTE | 2018-10-23 23:30 | NUR ---
NURSE NOTES:Incntinent of stool, had watery stool. Flexiseal inserted by Júnior Orozco,-sent specimen for cdiff.
[2018-10-24] VITALS (47 sets, daily range): BP systolic 92–117; BP diastolic 40–82
--- NOTE | 2018-10-24 01:00 | NUR ---
NURSE NOTES:Levophed drip up to 24mcg/min at this time. bp stable.
[2018-10-24] MEDS: NovoLOG Insulin Flexpen SUBQ SCH ×6 (01:22→20:42)
--- NOTE | 2018-10-24 01:42 | NUR ---
RESPIRATORY NOTE: Received pt. on 840 vent. Vent settings are: A/C rate of 20, Vt 500, FI02 40%, PEEP +5. No respiratory distress noted, pt. Sp02 @ 100%. Ambu bag @ BS. Vent plugged on red outlet. Will continue to monitor pt.
[2018-10-24] MEDS: Norepinephrine Bitartrate 16 MG in D5W 500ml 484 ML IV SCH ×2 (01:52→14:47)
--- NOTE | 2018-10-24 03:30 | NUR ---
NURSE NOTES:PTT was drawn- awaiting for result
--- NOTE | 2018-10-24 05:30 | NUR ---
NURSE NOTES:PTT result 70 sec- no change. complee bath with bed changed done, picture taken was done with pts skin breakdown and initiate TX.
--- NOTE | 2018-10-24 06:40 | NUR ---
NURSE NOTES:No resp. distress noted.
--- NOTE | 2018-10-24 07:00 | NUR ---
RESPIRATORY NOTE: Received pt on [id number]% FiO2- peep of 5, tolerating well. pt's resting comfortably, eyes open. pt is orally intubated with ETT 7.5 @ 23 cm lips line, secured by anchor fast. Keny rhonchi diminished breath sounds upon auscultation, suctioned small amount of thin/ thick brown red/ red specks and small clots secretions without any incidents. Alarms are set and audible, vent is plugged into the red outlet, ambu bag is at bedside. Vent circuits and sxn tubbing are secured and out of the way. Will continue to monitor pt.
--- NOTE | 2018-10-24 07:42 | NUR ---
HAND-OFF: Report given to Erick Ulloa
[2018-10-24 08:01] LABS: HEMATOCRIT 28.5 % (42.0-52.0); HEMOGLOBIN 9.2 G/DL (14.2-18.0); MEAN CORPUSCULAR VOLUME 84 FL (80-99); PLATELET COUNT 52 K/UL (150-450); RED BLOOD COUNT 3.37 M/UL (4.70-6.10)
--- NOTE | 2018-10-24 08:08 | General Progress Note ---
Assessment/Plan Problem List: (1) CKD (chronic kidney disease) ICD Codes: N18.9 - Chronic kidney disease, unspecified SNOMED: 499545714 (2) Hypoglycemia ICD Codes: E16.2 - Hypoglycemia, unspecified SNOMED: 920229312 (3) Altered mental status ICD Codes: R41.82 - Altered mental status, unspecified SNOMED: 529029318 Assessment/Plan continue glucose monitoring - low dose Novolog coverage hypoglycemia protocol in order Subjective ROS Limited/Unobtainable: Yes Allergies: Coded Allergies: PENICILLINS (Verified Allergy, Unknown, 10/09/18) Subjective events noted Item Value Date Time Bedside Blood Glucose 210 mg/dl H 10/24/18 0630 Bedside Blood Glucose 212 mg/dl H 10/24/18 0122 Bedside Blood Glucose 181 mg/dl H 10/23/18 2120 Bedside Blood Glucose 221 mg/dl H 10/23/18 1737 Objective Last 24 Hour Vital Signs Date Time Temp Pulse Resp B/P (MAP) Pulse Ox O2 Delivery O2 Flow Rate FiO2 10/24/18 07:00 89 26 103/54 (70) 100 10/24/18 06:30 90 26 112/49 (70) 100 10/24/18 06:00 88 26 110/49 (69) 100 10/24/18 05:30 90 25 100/40 (60) 100 10/24/18 05:10 91 27 40 10/24/18 05:00 90 25 102/40 (60) 100 10/24/18 04:30 91 24 107/58 (74) 100 10/24/18 04:00 40 10/24/18 04:00 98.6 90 24 97/43 (61) 100 10/24/18 04:00 91 10/24/18 04:00 Mechanical Ventilator 10/24/18 03:30 90 24 97/45 (62) 100 10/24/18 03:18 89 28 40 10/24/18 03:00 89 28 100/45 (63) 98 10/24/18 02:30 90 28 94/45 (61) 98 10/24/18 02:00 100 23 110/43 (65) 97 10/24/18 01:52 94/48 10/24/18 01:30 100 23 110/43 (65) 97 10/24/18 01:00 101 23 109/43 (65) 97 10/24/18 00:50 104 30 40 10/24/18 00:30 100 23 114/60 (78) 97 10/24/18 00:00 98.2 102 23 108/54 (72) 97 10/24/18 00:00 Mechanical Ventilator 10/23/18 23:30 94 23 104/62 (76) 99 10/23/18 23:00 95 30 40 10/23/18 23:00 94 23 113/47 (69) 99 10/23/18 22:30 94 16 99/70 (80) 99 10/23/18 22:00 97 16 113/55 (74) 99 10/23/18 21:30 98 29 141/61 (87) 100 10/23/18 21:03 100 31 40 10/23/18 21:00 100 29 119/69 (86) 100 10/23/18 20:30 101 16 122/62 (82) 100 10/23/18 20:00 98.0 101 16 125/62 (83) 100 10/23/18 20:00 40 10/23/18 20:00 Mechanical Ventilator 10/23/18 20:00 101 10/23/18 19:18 102 28 40 10/23/18 19:00 103 16 119/50 (73) 100 10/23/18 18:30 103 18 114/59 (77) 100 10/23/18 18:00 99 27 113/50 (71) 99 10/23/18 17:30 91 32 40 10/23/18 17:30 92 29 117/47 (70) 100 10/23/18 17:00 94 29 125/29 (61) 100 10/23/18 16:30 94 33 132/50 (77) 100 10/23/18 16:00 Mechanical Ventilator 10/23/18 16:00 40 10/23/18 16:00 90 10/23/18 16:00 98.2 92 34 121/52 (75) 100 10/23/18 15:49 122/55 10/23/18 15:45 91 32 40 10/23/18 15:30 94 32 125/56 (79) 100 10/23/18 15:00 93 21 96/53 (67) 100 10/23/18 14:30 94 28 121/53 (75) 100 10/23/18 14:00 90 21 82/52 (62) 100 10/23/18 13:30 93 20 113/57 (75) 100 10/23/18 13:12 84 31 100 Mechanical Ventilator 40 10/23/18 13:00 92 21 103/56 (72) 98 10/23/18 13:00 89 32 100 Mechanical Ventilator 40 10/23/18 12:59 91 35 40 10/23/18 12:45 107/66 10/23/18 12:30 91 30 95/77 (83) 100 10/23/18 12:00 98.6 91 25 105/52 (69) 99 10/23/18 12:00 Mechanical Ventilator 10/23/18 12:00 92 10/23/18 12:00 40 10/23/18 11:30 90 30 117/43 (67) 100 10/23/18 11:00 91 28 109/68 (82) 100 10/23/18 10:57 88 25 40 10/23/18 10:30 91 26 112/49 (70) 100 10/23/18 10:00 90 26 107/56 (73) 100 10/23/18 09:30 93 27 106/48 (67) 100 10/23/18 09:24 91 28 40 10/23/18 09:00 92 24 111/55 (73) 100 10/23/18 08:30 93 23 109/49 (69) 100 Intake and Output 10/23/18 10/24/18 19:00 07:00 Intake Total 2056.070 ml 1691.242 ml Output Total 0 ml 0 ml Balance 2056.070 ml 1691.242 ml Free Water 150 ml 90 ml IV Total 1376.070 ml 1161.242 ml Tube Feeding 480 ml 440 ml Other 50 ml Output Urine Total 0 ml 0 ml # Bowel Movements 7 3 Laboratory Tests 10/23/18 11:45: Activated Partial Thromboplast Time 111H 10/23/18 20:18: Activated Partial Thromboplast Time 57H 10/24/18 03:45: Activated Partial Thromboplast Time 70H 10/24/18 05:13: White Blood Count [Pending], Red Blood Count [Pending], Hemoglobin [Pending], Hematocrit [Pending], Mean Corpuscular Volume [Pending], Mean Corpuscular Hemoglobin [Pending], Mean Corpuscular Hemoglobin Concent [Pending], Red Cell Distribution Width [Pending], Platelet Count [Pending], Mean Platelet Volume [ Pending], Neutrophils (%) (Auto) [Pending], Lymphocytes (%) (Auto) [Pending], Monocytes (%) (Auto) [Pending], Eosinophils (%) (Auto) [Pending], Basophils (%) (Auto) [Pending], Sodium Level [Pending], Potassium Level [Pending], Chloride Level [Pending], Carbon Dioxide Level [Pending], Blood Urea Nitrogen [Pending], Creatinine [Pending], Estimat Glomerular Filtration Rate [Pending], Glucose Level [Pending], Calcium Level [Pending], Total Bilirubin [Pending], Aspartate Amino Transf (AST/SGOT) [Pending], Alanine Aminotransferase (ALT/SGPT) [Pending] , Alkaline Phosphatase [Pending], Total Protein [Pending], Albumin [Pending], Globulin [Pending], Amylase Level [Pending], Lipase [Pending] Height (Feet): 5 Height (Inches): 2.00 Weight (Pounds): 148 General Appearance: severe distress Neck: normal alignment Cardiovascular: normal rate Respiratory/Chest: decreased breath sounds Objective Current Medications Medications (Trade) Dose Ordered Sig/Ashely Route PRN Reason Start Time Stop Time Status Last Admin Dose Admin Acetaminophen (Tylenol) 650 mg Q6H PRN ORAL Mild Pain/Temp > 100.5 10/18/18 16:30 11/08/18 04:23 Albumin Human 50 ml @ 50 mls/hr ONCE PRN IV SBP < 90mmHg during HD 10/23/18 17:45 10/24/18 23:59 10/23/18 17:59 Aspirin (Ecotrin) 81 mg DAILY ORAL 10/19/18 09:00 11/09/18 08:59 10/23/18 09:37 Atorvastatin Calcium (Lipitor) 40 mg BEDTIME ORAL 10/18/18 21:00 11/09/18 20:59 10/23/18 21:08 Calcium Carbonate (Tums) 500 mg BID GT 10/20/18 18:00 11/09/18 08:59 10/23/18 17:34 Chlorhexidine Gluconate (Anai-Hex 2%) 1 applic DAILY@2000 TOPIC 10/18/18 20:00 11/12/18 19:59 10/23/18 20:18 Dextrose 1,000 ml @ 30 mls/hr Q24H IV 10/19/18 08:15 11/18/18 08:14 10/23/18 09:37 Dextrose (Dextrose 50%) 25 ml Q30M PRN IV Hypoglycemia 10/23/18 08:15 11/22/18 08:14 Dextrose (Dextrose 50%) 50 ml Q30M PRN IV Hypoglycemia 10/23/18 08:15 11/22/18 08:14 Dobutamine HCl 250 ml @ 10.05 mls/ hr Q24H IV 10/19/18 11:40 11/18/18 11:39 10/22/18 12:43 Docusate Sodium (Colace) 100 mg TWICE A DAY GT 10/20/18 18:00 11/09/18 08:59 10/23/18 09:37 Dopamine HCl/ Dextrose 250 ml @ 0 mls/hr Q24H IV 10/19/18 12:45 11/18/18 12:44 10/20/18 17:43 Fluconazole/ Sodium Chloride 100 ml @ 100 mls/hr Q24H IV 10/22/18 20:00 10/29/18 19:59 10/23/18 20:18 Haloperidol Lactate (Haldol) 5 mg Q6H PRN IM Agitation 10/18/18 17:00 11/17/18 16:59 Heparin Sodium/ Dextrose 500 ml @ 8.056 mls/ hr ADJUST PER PROTOCOL IV 10/23/18 21:15 11/22/18 21:14 10/23/18 21:31 Insulin Aspart (NovoLOG) EVERY 4 HOURS SUBQ 10/23/18 09:00 11/22/18 08:59 10/24/18 05:41 Latanoprost (Xalatan) 1 drop BEDTIME BOTH EYES 10/18/18 21:00 11/10/18 20:59 10/23/18 22:16 Meropenem 500 mg/ Sodium Chloride 50 ml @ 100 mls/hr Q24HRS IVPB 10/20/18 00:00 10/25/18 00:00 10/24/18 00:15 Norepinephrine Bitartrate 16 mg/ Dextrose 500 ml @ 0 mls/hr Q24H IV 10/20/18 18:00 11/19/18 17:59 10/24/18 01:52 Ondansetron HCl (Zofran) 4 mg Q8H PRN IVP Nausea & Vomiting 10/18/18 17:00 11/17/18 16:59 Pantoprazole (Protonix) 40 mg ACBREAKFAST ORAL 10/19/18 06:30 11/09/18 08:59 10/24/18 06:33 Polymyxin B Sulfate 336573 units/Dextrose 250 ml @ 250 mls/hr EVERY 12 HOURS IVPB 10/20/18 09:00 10/27/18 08:59 10/23/18 21:07 Promethazine HCl (Phenergan [place]) 6.25 mg Q6H PRN ORAL For Cough 10/18/18 16:45 11/10/18 04:32 Vancomycin HCl (Firvanq) 125 mg FOUR TIMES A DAY ORAL 10/22/18 21:00 10/29/18 20:59 10/23/18 21:07 Vancomycin HCl (Vanco rx to dose) 1 ea DAILY PRN MISC Per rx protocol 10/19/18 23:30 11/18/18 23:29 Vasopressin 100 units/Sodium Chloride 100 ml @ 2.4 mls/hr Q24H IV 10/22/18 15:00 11/21/18 14:59 10/23/18 20:21 Barry Schmitt MD Oct 24, 2018 08:08
[2018-10-24 08:11] LABS: WHITE BLOOD COUNT 26.3 K/UL (4.8-10.8)
--- NOTE | 2018-10-24 08:45 | NUR ---
NURSE NOTES: Dr. Traylor updated of patient condition, remains on ventilator and has not been attempted to wean, no verbal orders given at this time, neurological status is obtunded/inappropriate, he continues to open eyes when name is called but remains unable to track, will continue to monitor.
[2018-10-24] MEDS: Docusate 100mg/10ml Liq GT SCH (09:00)
[2018-10-24 09:03] LABS: ALANINE AMINOTRANSFERASE 431 U/L (12-78); ALBUMIN/GLOBULIN RATIO 0.6 (1.0-2.7); ALKALINE PHOSPHATASE 217 U/L (46-116); AMYLASE 118 U/L (25-115); ANION GAP 19 mmol/L (5-15); ASPARTATE AMINO TRANSFERASE 413 U/L (15-37); BILIRUBIN,TOTAL 5.3 MG/DL (0.2-1.0); BLOOD UREA NITROGEN 72 mg/dL (7-18); CALCIUM 6.9 MG/DL (8.5-10.1); CARBON DIOXIDE 16 MMOL/L (21-32); CHLORIDE 86 MMOL/L (98-107); CREATININE 4.9 MG/DL (0.55-1.30); POTASSIUM 3.8 MMOL/L (3.5-5.1); SODIUM 121 MMOL/L (136-145)
[2018-10-24 09:12] LABS: BILIRUBIN,DIRECT 4.2 MG/DL (0.0-0.3)
[2018-10-24] MEDS: Aspirin EC 81mg tab ORAL SCH (09:54)
[2018-10-24] MEDS: Tums 500mg GT SCH ×2 (09:54→18:29)
[2018-10-24] MEDS: Vancomycin oral 125mg/2.5ml ORAL SCH ×4 (09:55→20:33)
[2018-10-24] MEDS: POLYMYXIN B SULFATE IVPB SCH (09:56)
[2018-10-24] MEDS: D5W IVPB SCH (09:56)
--- NOTE | 2018-10-24 10:12 | NUR ---
RD ASSESSMENT & RECOMMENDATIONS SEE CARE ACTIVITY FOR COMPLETE ASSESSMENT DAILY ESTIMATED NEEDS: Needs based on DM, CHF, renal dysfunction w/ HD, critical care/ 64.5kg 25-30 kcals/kg 5752-8070 total kcals with HD: 1.25-2 g protein/kg with HD: 81-129 g total protein Fluid per MD, now on HD NUTRITION DIAGNOSIS: 1) Altered nutrition related lab values R/T DM w/ hypoglycemia, CHF, renal dysfunction as evidenced by critically low hypoglycemic episodes, now improved (POC 93-139, now higher), elev BNP (03636), elev BUN/ creat (72/ 4.9), low Na (121). 2) Swallowing difficulty r/t respiratory distress as evidenced by pt now s/p oral intubation, on pressor support, ICU status. 3) Increased kcal and protein needs r/t renal dysfunction and wound healing as evidenced by pt now on HD, and w/ partial thickness R gluteal cleft wound. CURRENT TF:NEPRO @40ml + PS x1 ENTERAL NUTRITION RECOMMENDATIONS: WHEN STABLE: NEPRO @40ml/hr x24 hrs + Prosource 1 pack daily to provide 960ml, 1728 kcal, 78g + 11g prot, 698ml free H2O - When hemodynamically stable and able to feed, rec to initiate non oral feeds. - Obtain GI access, start NEPRO @20ml/hr x6 hrs - Advance as tolerated 10ml q4-6 hrs to goal - Flush per MD. HOB over 30 degrees ------ REC TROPHIC FEEDS OF 5-10ML/HR TO MAINTAIN GUT INTEGRITY IF PT NOT HEMODYNAMICALLY STABLE FOR FEEDS AT GOAL ADDITIONAL RECOMMENDATIONS: * Calibrated bedscale wt, daily wts per policy (CHF dx) -> now w/ added P200 mattress + pump (est 25#) * Monitor lytes closely- worsening renal fxn now on HD * TF recs as above when hemodynamically stable for feeds -> (10/24) pt on 2 pressor agents, rec TROPHIC FEEDS (5-10ml/hr) * WOUND CARE: w/ GI access, add DAPHNE BID
--- NOTE | 2018-10-24 11:10 | NUR ---
NURSE NOTES: Dr. Key called to inform of patient Plt level of 52 and remains on heparin drip, orders to stop and place an order for heparin PF4 to diagnose if ROSANNE syndrome has developed, will place orders,
[2018-10-24] MEDS: DOBUTamine 250mg/250ml Premix 250 ML IV SCH (11:40)
--- NOTE | 2018-10-24 12:30 | NUR ---
NURSE NOTES: Dr. Key at the bedside and updated on patient progress, Informed heparin has been D/C as orders at 1130. now he wants to maintain vasopressin at 0.04units/hr and titrate Levophed first, also ordered to have venous duplex orders. will carry out orders.
[2018-10-24] MEDS: DOPamine 400mg/250ml 250 ML IV SCH (12:45)
--- NOTE | 2018-10-24 12:49 | General Progress Note ---
Assessment/Plan Problem List: (1) Elevated LFTs ICD Codes: R94.5 - Abnormal results of liver function studies SNOMED: 341185979, 708331126 (2) Fatty liver ICD Codes: K76.0 - Fatty (change of) liver, not elsewhere classified SNOMED: 299367494 (3) History of cholecystectomy ICD Codes: Z90.49 - Acquired absence of other specified parts of digestive tract SNOMED: 45967831, 873230166 (4) Thrombocytopenia ICD Codes: D69.6 - Thrombocytopenia, unspecified SNOMED: 661507309 (5) possible panreatitis (6) Sepsis ICD Codes: A41.9 - Sepsis, unspecified organism SNOMED: 22613207 (7) Ventilator dependence ICD Codes: Z99.11 - Dependence on respirator [ventilator] status SNOMED: 349542946 (8) Hyponatremia ICD Codes: E87.1 - Hypo-osmolality and hyponatremia SNOMED: 57028632 (9) Respiratory failure, acute ICD Codes: J96.00 - Acute respiratory failure, unspecified whether with hypoxia or hypercapnia SNOMED: 40087039 (10) Acute metabolic encephalopathy ICD Codes: G93.41 - Metabolic encephalopathy SNOMED: 39239108, 748856353 (11) Pneumonia ICD Codes: J18.9 - Pneumonia, unspecified organism SNOMED: 272880832 (12) Hypotension ICD Codes: I95.9 - Hypotension, unspecified SNOMED: 65646989 (13) CAD (coronary artery disease) ICD Codes: I25.10 - Atherosclerotic heart disease of [place] coronary artery without angina pectoris SNOMED: 36149205 Assessment/Plan KUB and us reviewed no dilated CBD fu lfys no need for ERCP at this time ngtf fu stool for C.diff repeat labs supportive care rectal tube fu labs Subjective ROS Limited/Unobtainable: No Allergies: Coded Allergies: PENICILLINS (Verified Allergy, Unknown, 10/09/18) Objective Last 24 Hour Vital Signs Date Time Temp Pulse Resp B/P (MAP) Pulse Ox O2 Delivery O2 Flow Rate FiO2 10/24/18 11:40 114/37 10/24/18 11:30 94 29 117/54 (75) 100 10/24/18 11:00 92 29 113/65 (81) 100 10/24/18 10:40 88 29 40 10/24/18 10:30 90 27 109/52 (71) 100 10/24/18 10:00 91 16 108/51 (70) 100 10/24/18 09:30 91 20 110/46 (67) 100 10/24/18 09:00 90 16 105/51 (69) 100 10/24/18 08:36 92 30 40 10/24/18 08:30 91 24 94/47 (63) 100 10/24/18 08:00 Mechanical Ventilator 10/24/18 08:00 97 10/24/18 08:00 98.3 90 29 110/43 (65) 100 10/24/18 08:00 40 10/24/18 07:30 90 26 106/65 (79) 100 10/24/18 07:00 91 35 40 10/24/18 07:00 89 26 103/54 (70) 100 10/24/18 06:30 90 26 112/49 (70) 100 10/24/18 06:00 88 26 110/49 (69) 100 10/24/18 05:30 90 25 100/40 (60) 100 10/24/18 05:10 91 27 40 10/24/18 05:00 90 25 102/40 (60) 100 10/24/18 04:30 91 24 107/58 (74) 100 10/24/18 04:00 40 10/24/18 04:00 98.6 90 24 97/43 (61) 100 10/24/18 04:00 91 10/24/18 04:00 Mechanical Ventilator 10/24/18 03:30 90 24 97/45 (62) 100 10/24/18 03:18 89 28 40 10/24/18 03:00 89 28 100/45 (63) 98 10/24/18 02:30 90 28 94/45 (61) 98 10/24/18 02:00 100 23 110/43 (65) 97 10/24/18 01:52 94/48 10/24/18 01:30 100 23 110/43 (65) 97 10/24/18 01:00 101 23 109/43 (65) 97 10/24/18 00:50 104 30 40 10/24/18 00:30 100 23 114/60 (78) 97 10/24/18 00:00 98.2 102 23 108/54 (72) 97 10/24/18 00:00 Mechanical Ventilator 10/23/18 23:30 94 23 104/62 (76) 99 10/23/18 23:00 95 30 40 10/23/18 23:00 94 23 113/47 (69) 99 10/23/18 22:30 94 16 99/70 (80) 99 10/23/18 22:00 97 16 113/55 (74) 99 10/23/18 21:30 98 29 141/61 (87) 100 10/23/18 21:03 100 31 40 10/23/18 21:00 100 29 119/69 (86) 100 10/23/18 20:30 101 16 122/62 (82) 100 10/23/18 20:00 98.0 101 16 125/62 (83) 100 10/23/18 20:00 40 10/23/18 20:00 Mechanical Ventilator 10/23/18 20:00 101 10/23/18 19:18 102 28 40 10/23/18 19:00 103 16 119/50 (73) 100 10/23/18 18:30 103 18 114/59 (77) 100 10/23/18 18:00 99 27 113/50 (71) 99 10/23/18 17:30 91 32 40 10/23/18 17:30 92 29 117/47 (70) 100 10/23/18 17:00 94 29 125/29 (61) 100 10/23/18 16:30 94 33 132/50 (77) 100 10/23/18 16:00 Mechanical Ventilator 10/23/18 16:00 40 10/23/18 16:00 90 10/23/18 16:00 98.2 92 34 121/52 (75) 100 10/23/18 15:49 122/55 10/23/18 15:45 91 32 40 10/23/18 15:30 94 32 125/56 (79) 100 10/23/18 15:00 93 21 96/53 (67) 100 10/23/18 14:30 94 28 121/53 (75) 100 10/23/18 14:00 90 21 82/52 (62) 100 10/23/18 13:30 93 20 113/57 (75) 100 10/23/18 13:12 84 31 100 Mechanical Ventilator 40 10/23/18 13:00 92 21 103/56 (72) 98 10/23/18 13:00 89 32 100 Mechanical Ventilator 40 10/23/18 12:59 91 35 40 Intake and Output 10/23/18 10/24/18 19:00 07:00 Intake Total 2056.070 ml 1691.242 ml Output Total 0 ml 0 ml Balance 2056.070 ml 1691.242 ml Free Water 150 ml 90 ml IV Total 1376.070 ml 1161.242 ml Tube Feeding 480 ml 440 ml Other 50 ml Output Urine Total 0 ml 0 ml # Bowel Movements 7 3 Laboratory Tests 10/23/18 20:18: Activated Partial Thromboplast Time 57H 10/24/18 03:45: Activated Partial Thromboplast Time 70H 10/24/18 05:13: White Blood Count 26.3*H, Red Blood Count 3.37L, Hemoglobin 9.2L, Hematocrit 28.5L, Mean Corpuscular Volume 84, Mean Corpuscular Hemoglobin 27.4, Mean Corpuscular Hemoglobin Concent 32.4, Red Cell Distribution Width 20.0H, Platelet Count 52#L, Mean Platelet Volume 10.6H, Neutrophils (%) (Auto) , Lymphocytes (%) (Auto) , Monocytes (%) (Auto) , Eosinophils (%) (Auto) , Basophils (%) (Auto) , Differential Total Cells Counted 100, Neutrophils % ( Manual) 85H, Lymphocytes % (Manual) 4L, Monocytes % (Manual) 8, Eosinophils % ( Manual) 2, Basophils % (Manual) 0, Band Neutrophils 1, Platelet Estimate DecreasedL, Platelet Morphology Normal, Polychromasia 2+, Hypochromasia 1+, Anisocytosis 3+, Sodium Level 121L, Potassium Level 3.8, Chloride Level 86L, Carbon Dioxide Level 16L, Anion Gap 19H, Blood Urea Nitrogen 72H, Creatinine 4.9H, Estimat Glomerular Filtration Rate , Glucose Level 195H, Calcium Level 6.9 #L, Total Bilirubin 5.3H, Direct Bilirubin 4.2H, Aspartate Amino Transf (AST/ SGOT) 413H, Alanine Aminotransferase (ALT/SGPT) 431H, Alkaline Phosphatase 217H , Total Protein 5.4L, Albumin 2.0L, Globulin 3.4, Albumin/Globulin Ratio 0.6L, Amylase Level 118H, Lipase 417H Height (Feet): 5 Height (Inches): 2.00 Weight (Pounds): 148 General Appearance: lethargic EENT: normal ENT inspection Neck: supple Cardiovascular: normal rate Respiratory/Chest: decreased breath sounds Abdomen: normal bowel sounds, non tender, soft Extremities: non-tender Baldemar Hawley MD Oct 24, 2018 12:49
--- NOTE | 2018-10-24 13:15 | Cardiology Progress Note ---
Assessment/Plan Assessment/Plan cardiology critical care 1. Hypoglycemia secondary to medication. 2. Diabetes mellitus previously. 3. Acute Respiratory inusf / hemoptysis 4. History of ischemic cardiomyopathy with ejection fraction of 40%. 5. Mitral regurgitation, vwxlzqhe-iv-zxzyws degree on recent echocardiogram last week. 6. Moderate tricuspid regurgitation. 7. Mild pulmonary hypertension with 43 through 48. 8. Pleural effusions history. 9. Abnormal gastric endoscopy, suspicious for malignancy with submucosal resection. 10. Aortic stenosis. 11. Hyperlipidemia. 12. Prostate cancer. 13. Abnormal facial asymmetry. 14. CAD 15. AMS 16. NSTEMI demand related vs PE related doubt acs 17. acute on chronic renal failure 18. metabolic acidosis 19. hemiparesis 20. hypotension / septic shock 21. Thrombocytopenia 22. abn lft probable shock liver ? 23. profound hyponatremia 24. hyper bilirubinemia 25. Thrombocytopenia echo reviewed has infor post swma and mod mr and ef probley 35-40% , rv is not enlarge ivc ws enlarged at the time was done v/q was ordered but not done heaprin dcd due to thrombocytopenia HIT ordred dic panel ordered heme to see d/w dr mancia ct head done was not very remarkable need mri when feasible is min responsive but not follow commands will try to see if can taper levophed slowly d/w rn d/w gi dolterated dialysis yest but no UF performed neuro / gi/ renal / ID input appreciated is on abx adjusted by id bp is littel better on pressor lft down trending but bili remaining elelvated abd u/s: 1. Echogenic liver which may be fatty infiltration. Small perihepatic fluid. 2. Kdih-go-fsuiatxp right hydronephrosis. d/w family 10/22/2018 i have made son aware of the poor status we discussed resuscitative effort they wish him to be full code due to christianity reason if bp allow more dialysis and uf tomorrow venous duplex ordered to make suer not white clot syndrome remains critical and at risk of dying full code Subjective ROS Limited/Unobtainable: Yes Subjective intubated on 2 pressor Objective Last 24 Hour Vital Signs Date Time Temp Pulse Resp B/P (MAP) Pulse Ox O2 Delivery O2 Flow Rate FiO2 10/24/18 11:40 114/37 10/24/18 11:30 94 29 117/54 (75) 100 10/24/18 11:00 92 29 113/65 (81) 100 10/24/18 10:40 88 29 40 10/24/18 10:30 90 27 109/52 (71) 100 10/24/18 10:00 91 16 108/51 (70) 100 10/24/18 09:30 91 20 110/46 (67) 100 10/24/18 09:00 90 16 105/51 (69) 100 10/24/18 08:36 92 30 40 10/24/18 08:30 91 24 94/47 (63) 100 10/24/18 08:00 Mechanical Ventilator 10/24/18 08:00 97 10/24/18 08:00 98.3 90 29 110/43 (65) 100 10/24/18 08:00 40 10/24/18 07:30 90 26 106/65 (79) 100 10/24/18 07:00 91 35 40 10/24/18 07:00 89 26 103/54 (70) 100 10/24/18 06:30 90 26 112/49 (70) 100 10/24/18 06:00 88 26 110/49 (69) 100 10/24/18 05:30 90 25 100/40 (60) 100 10/24/18 05:10 91 27 40 10/24/18 05:00 90 25 102/40 (60) 100 10/24/18 04:30 91 24 107/58 (74) 100 10/24/18 04:00 40 10/24/18 04:00 98.6 90 24 97/43 (61) 100 10/24/18 04:00 91 10/24/18 04:00 Mechanical Ventilator 10/24/18 03:30 90 24 97/45 (62) 100 10/24/18 03:18 89 28 40 10/24/18 03:00 89 28 100/45 (63) 98 10/24/18 02:30 90 28 94/45 (61) 98 10/24/18 02:00 100 23 110/43 (65) 97 10/24/18 01:52 94/48 10/24/18 01:30 100 23 110/43 (65) 97 10/24/18 01:00 101 23 109/43 (65) 97 10/24/18 00:50 104 30 40 10/24/18 00:30 100 23 114/60 (78) 97 10/24/18 00:00 98.2 102 23 108/54 (72) 97 10/24/18 00:00 Mechanical Ventilator 10/23/18 23:30 94 23 104/62 (76) 99 10/23/18 23:00 95 30 40 10/23/18 23:00 94 23 113/47 (69) 99 10/23/18 22:30 94 16 99/70 (80) 99 10/23/18 22:00 97 16 113/55 (74) 99 10/23/18 21:30 98 29 141/61 (87) 100 10/23/18 21:03 100 31 40 10/23/18 21:00 100 29 119/69 (86) 100 10/23/18 20:30 101 16 122/62 (82) 100 10/23/18 20:00 98.0 101 16 125/62 (83) 100 10/23/18 20:00 40 10/23/18 20:00 Mechanical Ventilator 10/23/18 20:00 101 10/23/18 19:18 102 28 40 10/23/18 19:00 103 16 119/50 (73) 100 10/23/18 18:30 103 18 114/59 (77) 100 10/23/18 18:00 99 27 113/50 (71) 99 10/23/18 17:30 91 32 40 10/23/18 17:30 92 29 117/47 (70) 100 10/23/18 17:00 94 29 125/29 (61) 100 10/23/18 16:30 94 33 132/50 (77) 100 10/23/18 16:00 Mechanical Ventilator 10/23/18 16:00 40 10/23/18 16:00 90 10/23/18 16:00 98.2 92 34 121/52 (75) 100 10/23/18 15:49 122/55 10/23/18 15:45 91 32 40 10/23/18 15:30 94 32 125/56 (79) 100 10/23/18 15:00 93 21 96/53 (67) 100 10/23/18 14:30 94 28 121/53 (75) 100 10/23/18 14:00 90 21 82/52 (62) 100 10/23/18 13:30 93 20 113/57 (75) 100 10/23/18 13:12 84 31 100 Mechanical Ventilator 40 General Appearance: no apparent distress, on vent Neck: supple Cardiovascular: normal rate Respiratory/Chest: crackles/rales - left side Abdomen: distended, other - edematous abd wa Extremities: severe edema Intake and Output 10/23/18 10/24/18 19:00 07:00 Intake Total 2056.070 ml 1691.242 ml Output Total 0 ml 0 ml Balance 2056.070 ml 1691.242 ml Free Water 150 ml 90 ml IV Total 1376.070 ml 1161.242 ml Tube Feeding 480 ml 440 ml Other 50 ml Output Urine Total 0 ml 0 ml # Bowel Movements 7 3 Laboratory Tests Test 10/23/18 20:18 10/24/18 03:45 10/24/18 05:13 Activated Partial Thromboplast Time 57 SEC (23-33) H 70 SEC (23-33) H White Blood Count 26.3 K/UL (4.8-10.8) *H Red Blood Count 3.37 M/UL (4.70-6.10) L Hemoglobin 9.2 G/DL (14.2-18.0) L Hematocrit 28.5 % (42.0-52.0) L Mean Corpuscular Volume 84 FL (80-99) Mean Corpuscular Hemoglobin 27.4 PG (27.0-31.0) Mean Corpuscular Hemoglobin Concent 32.4 G/DL (32.0-36.0) Red Cell Distribution Width 20.0 % (11.6-14.8) H Platelet Count 52 K/UL (150-450) #L Mean Platelet Volume 10.6 FL (6.5-10.1) H Neutrophils (%) (Auto) % (45.0-75.0) Lymphocytes (%) (Auto) % (20.0-45.0) Monocytes (%) (Auto) % (1.0-10.0) Eosinophils (%) (Auto) % (0.0-3.0) Basophils (%) (Auto) % (0.0-2.0) Differential Total Cells Counted 100 Neutrophils % (Manual) 85 % (45-75) H Lymphocytes % (Manual) 4 % (20-45) L Monocytes % (Manual) 8 % (1-10) Eosinophils % (Manual) 2 % (0-3) Basophils % (Manual) 0 % (0-2) Band Neutrophils 1 % (0-8) Platelet Estimate Decreased L Platelet Morphology Normal Polychromasia 2+ Hypochromasia 1+ Anisocytosis 3+ Sodium Level 121 MMOL/L (136-145) L Potassium Level 3.8 MMOL/L (3.5-5.1) Chloride Level 86 MMOL/L (98-107) L Carbon Dioxide Level 16 MMOL/L (21-32) L Anion Gap 19 mmol/L (5-15) H Blood Urea Nitrogen 72 mg/dL (7-18) H Creatinine 4.9 MG/DL (0.55-1.30) H Estimat Glomerular Filtration Rate mL/min (>60) Glucose Level 195 MG/DL (74-106) H Calcium Level 6.9 MG/DL (8.5-10.1) #L Total Bilirubin 5.3 MG/DL (0.2-1.0) H Direct Bilirubin 4.2 MG/DL (0.0-0.3) H Aspartate Amino Transf (AST/SGOT) 413 U/L (15-37) H Alanine Aminotransferase (ALT/SGPT) 431 U/L (12-78) H Alkaline Phosphatase 217 U/L (46-116) H Total Protein 5.4 G/DL (6.4-8.2) L Albumin 2.0 G/DL (3.4-5.0) L Globulin 3.4 g/dL Albumin/Globulin Ratio 0.6 (1.0-2.7) L Amylase Level 118 U/L (25-115) H Lipase 417 U/L (73-393) H Dg Key MD Oct 24, 2018 13:15
--- NOTE | 2018-10-24 14:20 | NUR ---
NURSE NOTES: Dr. Plata updated on patient condition, no verbal orders given at this time.
--- NOTE | 2018-10-24 14:48 | Infectious Diseases Prog Note ---
Assessment/Plan Assessment/Plan A) 1) sepsis, shock, leukocytosis, pna, ? fungemia, ? c.diff., fungemia riskk 2) respiratory failure, vent, dm, htn, fred, HD, nstemi, anemia, cad, chf, hyponatremia 3) , pvd, cidp, prostate ca, ckd 4) sh-neg, fh-nc, mar noted, orders and notes reviewed 5) allergies - pcn 6) d/w RN P) 1) meropenem, vancomycin, po vancomycin, diflucan, discontinue polymyxin 2) f/u on cultures, labs and chest x-ray, c.diff., labs 3) continue treatment per primary team and consultants, icu, supportive care 4) condition critical 5) poor prognosis 6) d/w Dr. Johnson, Neurology Subjective Constitutional: Reports: other - on vent, lethargic, on pressors; Denies: fever HEENT: Reports: congestion Respiratory: Denies: shortness of breath Cardiovascular: Reports: other - no pressors Gastrointestinal/Abdominal: Denies: nausea, vomiting, diarrhea Genitourinary: Reports: other - no cooper, hd, no uo Neurologic: Reports: other - lethargic, poorly responsive Psychiatric: Reports: other - na Skin: Denies: rash Hematologic: Denies: bleeding Musculoskeletal: Reports: other - na Allergies: Coded Allergies: PENICILLINS (Verified Allergy, Unknown, 10/09/18) Objective Vital Signs Last 24 Hour Vital Signs Date Time Temp Pulse Resp B/P (MAP) Pulse Ox O2 Delivery O2 Flow Rate FiO2 10/24/18 12:45 110/49 10/24/18 12:40 89 29 40 10/24/18 11:40 114/37 10/24/18 11:30 94 29 117/54 (75) 100 10/24/18 11:00 92 29 113/65 (81) 100 10/24/18 10:40 88 29 40 10/24/18 10:30 90 27 109/52 (71) 100 10/24/18 10:00 91 16 108/51 (70) 100 10/24/18 09:30 91 20 110/46 (67) 100 10/24/18 09:00 90 16 105/51 (69) 100 10/24/18 08:36 92 30 40 10/24/18 08:30 91 24 94/47 (63) 100 10/24/18 08:00 Mechanical Ventilator 10/24/18 08:00 97 10/24/18 08:00 98.3 90 29 110/43 (65) 100 10/24/18 08:00 40 10/24/18 07:30 90 26 106/65 (79) 100 10/24/18 07:00 91 35 40 10/24/18 07:00 89 26 103/54 (70) 100 10/24/18 06:30 90 26 112/49 (70) 100 10/24/18 06:00 88 26 110/49 (69) 100 10/24/18 05:30 90 25 100/40 (60) 100 10/24/18 05:10 91 27 40 10/24/18 05:00 90 25 102/40 (60) 100 10/24/18 04:30 91 24 107/58 (74) 100 10/24/18 04:00 40 10/24/18 04:00 98.6 90 24 97/43 (61) 100 10/24/18 04:00 91 10/24/18 04:00 Mechanical Ventilator 10/24/18 03:30 90 24 97/45 (62) 100 10/24/18 03:18 89 28 40 10/24/18 03:00 89 28 100/45 (63) 98 10/24/18 02:30 90 28 94/45 (61) 98 10/24/18 02:00 100 23 110/43 (65) 97 10/24/18 01:52 94/48 10/24/18 01:30 100 23 110/43 (65) 97 10/24/18 01:00 101 23 109/43 (65) 97 10/24/18 00:50 104 30 40 10/24/18 00:30 100 23 114/60 (78) 97 10/24/18 00:00 98.2 102 23 108/54 (72) 97 10/24/18 00:00 Mechanical Ventilator 10/23/18 23:30 94 23 104/62 (76) 99 10/23/18 23:00 95 30 40 10/23/18 23:00 94 23 113/47 (69) 99 10/23/18 22:30 94 16 99/70 (80) 99 10/23/18 22:00 97 16 113/55 (74) 99 10/23/18 21:30 98 29 141/61 (87) 100 10/23/18 21:03 100 31 40 10/23/18 21:00 100 29 119/69 (86) 100 10/23/18 20:30 101 16 122/62 (82) 100 10/23/18 20:00 98.0 101 16 125/62 (83) 100 10/23/18 20:00 40 10/23/18 20:00 Mechanical Ventilator 10/23/18 20:00 101 10/23/18 19:18 102 28 40 10/23/18 19:00 103 16 119/50 (73) 100 10/23/18 18:30 103 18 114/59 (77) 100 10/23/18 18:00 99 27 113/50 (71) 99 10/23/18 17:30 91 32 40 10/23/18 17:30 92 29 117/47 (70) 100 10/23/18 17:00 94 29 125/29 (61) 100 10/23/18 16:30 94 33 132/50 (77) 100 10/23/18 16:00 Mechanical Ventilator 10/23/18 16:00 40 10/23/18 16:00 90 10/23/18 16:00 98.2 92 34 121/52 (75) 100 10/23/18 15:49 122/55 10/23/18 15:45 91 32 40 10/23/18 15:30 94 32 125/56 (79) 100 10/23/18 15:00 93 21 96/53 (67) 100 Height (Feet): 5 Height (Inches): 2.00 Weight (Pounds): 148 General Appearance: no acute distress, other - on vent and pressors, poorly responsive HEENT: normocephalic, atraumatic, anicteric, mucous membranes moist, no JVD, other - oral - intubated Respiratory/Chest: crackles/rales, rhonchi - bilaterally Cardiovascular: normal rate, regular rhythm, no gallop/murmur Abdomen: normal bowel sounds, soft, non tender, no organomegaly, non distended Genitourinary: other - no cooper, no uo, + hd Extremities: no cyanosis Skin: no rash 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 Stable satisfactory positions of endotracheal tube, right external jugular temporary dialysis catheter, left arm PICC. Interim placement of a nasogastric tube, tip which projects beyond the edge of image, documented to be intragastric on an earlier abdominal radiograph. Previously demonstrated right basilar interstitial opacities appear improved Impression: Interim enteric feeding tube placement. Slight clearing of previously demonstrated right basilar interstitial opacities. 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, findings as noted Microbiology Date/Time Source Procedure Growth Status 10/20/18 06:10 Blood Blood Culture - Preliminary NO GROWTH AFTER 72 HOURS Resulted 10/20/18 10:00 Sputum Induced Gram Stain - Final Complete 10/20/18 10:00 Sputum Culture - Final Ana Laura Species Usual Respiratory Melany Complete Laboratory Tests Test 10/23/18 20:18 10/24/18 03:45 10/24/18 05:13 Activated Partial Thromboplast Time 57 SEC (23-33) H 70 SEC (23-33) H White Blood Count 26.3 K/UL (4.8-10.8) *H Red Blood Count 3.37 M/UL (4.70-6.10) L Hemoglobin 9.2 G/DL (14.2-18.0) L Hematocrit 28.5 % (42.0-52.0) L Mean Corpuscular Volume 84 FL (80-99) Mean Corpuscular Hemoglobin 27.4 PG (27.0-31.0) Mean Corpuscular Hemoglobin Concent 32.4 G/DL (32.0-36.0) Red Cell Distribution Width 20.0 % (11.6-14.8) H Platelet Count 52 K/UL (150-450) #L Mean Platelet Volume 10.6 FL (6.5-10.1) H Neutrophils (%) (Auto) % (45.0-75.0) Lymphocytes (%) (Auto) % (20.0-45.0) Monocytes (%) (Auto) % (1.0-10.0) Eosinophils (%) (Auto) % (0.0-3.0) Basophils (%) (Auto) % (0.0-2.0) Differential Total Cells Counted 100 Neutrophils % (Manual) 85 % (45-75) H Lymphocytes % (Manual) 4 % (20-45) L Monocytes % (Manual) 8 % (1-10) Eosinophils % (Manual) 2 % (0-3) Basophils % (Manual) 0 % (0-2) Band Neutrophils 1 % (0-8) Platelet Estimate Decreased L Platelet Morphology Normal Polychromasia 2+ Hypochromasia 1+ Anisocytosis 3+ Sodium Level 121 MMOL/L (136-145) L Potassium Level 3.8 MMOL/L (3.5-5.1) Chloride Level 86 MMOL/L (98-107) L Carbon Dioxide Level 16 MMOL/L (21-32) L Anion Gap 19 mmol/L (5-15) H Blood Urea Nitrogen 72 mg/dL (7-18) H Creatinine 4.9 MG/DL (0.55-1.30) H Estimat Glomerular Filtration Rate mL/min (>60) Glucose Level 195 MG/DL (74-106) H Calcium Level 6.9 MG/DL (8.5-10.1) #L Total Bilirubin 5.3 MG/DL (0.2-1.0) H Direct Bilirubin 4.2 MG/DL (0.0-0.3) H Aspartate Amino Transf (AST/SGOT) 413 U/L (15-37) H Alanine Aminotransferase (ALT/SGPT) 431 U/L (12-78) H Alkaline Phosphatase 217 U/L (46-116) H Total Protein 5.4 G/DL (6.4-8.2) L Albumin 2.0 G/DL (3.4-5.0) L Globulin 3.4 g/dL Albumin/Globulin Ratio 0.6 (1.0-2.7) L Amylase Level 118 U/L (25-115) H Lipase 417 U/L (73-393) H Current Medications Medications (Trade) Dose Ordered Sig/Ashely Route PRN Reason Start Time Stop Time Status Last Admin Dose Admin Acetaminophen (Tylenol) 650 mg Q6H PRN ORAL Mild Pain/Temp > 100.5 10/18/18 16:30 11/08/18 04:23 Albumin Human 50 ml @ 50 mls/hr ONCE PRN IV SBP < 90mmHg during HD 10/23/18 17:45 10/24/18 23:59 10/23/18 17:59 Aspirin (Ecotrin) 81 mg DAILY ORAL 10/19/18 09:00 11/09/18 08:59 10/24/18 09:54 Atorvastatin Calcium (Lipitor) 40 mg BEDTIME ORAL 10/18/18 21:00 11/09/18 20:59 10/23/18 21:08 Calcium Carbonate (Tums) 500 mg BID GT 10/20/18 18:00 11/09/18 08:59 10/24/18 09:54 Chlorhexidine Gluconate (Anai-Hex 2%) 1 applic DAILY@2000 TOPIC 10/18/18 20:00 11/12/18 19:59 10/23/18 20:18 Dextrose 1,000 ml @ 30 mls/hr Q24H IV 10/19/18 08:15 11/18/18 08:14 10/24/18 09:56 Dextrose (Dextrose 50%) 25 ml Q30M PRN IV Hypoglycemia 10/23/18 08:15 11/22/18 08:14 Dextrose (Dextrose 50%) 50 ml Q30M PRN IV Hypoglycemia 10/23/18 08:15 11/22/18 08:14 Dobutamine HCl 250 ml @ 10.05 mls/ hr Q24H IV 10/19/18 11:40 11/18/18 11:39 10/22/18 12:43 Dopamine HCl/ Dextrose 250 ml @ 0 mls/hr Q24H IV 10/19/18 12:45 11/18/18 12:44 10/20/18 17:43 Fluconazole/ Sodium Chloride 100 ml @ 100 mls/hr Q24H IV 10/22/18 20:00 10/29/18 19:59 10/23/18 20:18 Haloperidol Lactate (Haldol) 5 mg Q6H PRN IM Agitation 10/18/18 17:00 11/17/18 16:59 Insulin Aspart (NovoLOG) EVERY 4 HOURS SUBQ 10/23/18 09:00 11/22/18 08:59 10/24/18 13:46 Latanoprost (Xalatan) 1 drop BEDTIME BOTH EYES 10/18/18 21:00 11/10/18 20:59 10/23/18 22:16 Meropenem 500 mg/ Sodium Chloride 50 ml @ 100 mls/hr Q24HRS IVPB 10/20/18 00:00 10/25/18 00:00 10/24/18 00:15 Norepinephrine Bitartrate 16 mg/ Dextrose 500 ml @ 0 mls/hr Q24H IV 10/20/18 18:00 11/19/18 17:59 10/24/18 01:52 Ondansetron HCl (Zofran) 4 mg Q8H PRN IVP Nausea & Vomiting 10/18/18 17:00 11/17/18 16:59 Pantoprazole (Protonix) 40 mg ACBREAKFAST ORAL 10/19/18 06:30 11/09/18 08:59 10/24/18 06:33 Polymyxin B Sulfate [id number] units/Dextrose 250 ml @ 250 mls/hr EVERY 12 HOURS IVPB 10/20/18 09:00 10/27/18 08:59 10/24/18 09:56 Promethazine HCl (Phenergan Plain) 6.25 mg Q6H PRN ORAL For Cough 10/18/18 16:45 11/10/18 04:32 Vancomycin HCl (Firvanq) 125 mg FOUR TIMES A DAY ORAL 10/22/18 21:00 10/29/18 20:59 10/24/18 09:55 Vancomycin HCl (Vanco rx to dose) 1 ea DAILY PRN MISC Per rx protocol 10/19/18 23:30 11/18/18 23:29 Vasopressin 100 units/Sodium Chloride 100 ml @ 2.4 mls/hr Q24H IV 10/22/18 15:00 11/21/18 14:59 10/23/18 20:21 Roseline Figueroa MD Oct 24, 2018 14:48
--- NOTE | 2018-10-24 14:55 | Neurology Progress Note ---
Interim History Interim History Interim History Mr. Gann continues to be poorly responsive. He does open his eyes on loud vocal stimulation. He does not move his limbs even on deep pain. He continues to be on pressors. He continues to be intubated and artificially ventilated. He continues to be acutely ill. He has exhibited some tremulous movements in the left UE and LE but the EEG revealed no inter-ictal or ictal phenomena. There has been no significant improvement in his neurologic status. Review of Systems Neuro Review of Systems Benign. Objective Physical Exam Last Vital Signs Date Time Temp Pulse Resp B/P (MAP) Pulse Ox O2 Delivery O2 Flow Rate FiO2 10/24/18 12:45 110/49 10/24/18 12:40 89 29 40 10/24/18 11:30 100 10/24/18 08:00 Mechanical Ventilator 10/24/18 08:00 98.3 10/20/18 16:23 40.0 Laboratory Tests Test 10/23/18 20:18 10/24/18 03:45 10/24/18 05:13 Activated Partial Thromboplast Time 57 SEC (23-33) H 70 SEC (23-33) H White Blood Count 26.3 K/UL (4.8-10.8) *H Red Blood Count 3.37 M/UL (4.70-6.10) L Hemoglobin 9.2 G/DL (14.2-18.0) L Hematocrit 28.5 % (42.0-52.0) L Mean Corpuscular Volume 84 FL (80-99) Mean Corpuscular Hemoglobin 27.4 PG (27.0-31.0) Mean Corpuscular Hemoglobin Concent 32.4 G/DL (32.0-36.0) Red Cell Distribution Width 20.0 % (11.6-14.8) H Platelet Count 52 K/UL (150-450) #L Mean Platelet Volume 10.6 FL (6.5-10.1) H Neutrophils (%) (Auto) % (45.0-75.0) Lymphocytes (%) (Auto) % (20.0-45.0) Monocytes (%) (Auto) % (1.0-10.0) Eosinophils (%) (Auto) % (0.0-3.0) Basophils (%) (Auto) % (0.0-2.0) Differential Total Cells Counted 100 Neutrophils % (Manual) 85 % (45-75) H Lymphocytes % (Manual) 4 % (20-45) L Monocytes % (Manual) 8 % (1-10) Eosinophils % (Manual) 2 % (0-3) Basophils % (Manual) 0 % (0-2) Band Neutrophils 1 % (0-8) Platelet Estimate Decreased L Platelet Morphology Normal Polychromasia 2+ Hypochromasia 1+ Anisocytosis 3+ Sodium Level 121 MMOL/L (136-145) L Potassium Level 3.8 MMOL/L (3.5-5.1) Chloride Level 86 MMOL/L (98-107) L Carbon Dioxide Level 16 MMOL/L (21-32) L Anion Gap 19 mmol/L (5-15) H Blood Urea Nitrogen 72 mg/dL (7-18) H Creatinine 4.9 MG/DL (0.55-1.30) H Estimat Glomerular Filtration Rate mL/min (>60) Glucose Level 195 MG/DL (74-106) H Calcium Level 6.9 MG/DL (8.5-10.1) #L Total Bilirubin 5.3 MG/DL (0.2-1.0) H Direct Bilirubin 4.2 MG/DL (0.0-0.3) H Aspartate Amino Transf (AST/SGOT) 413 U/L (15-37) H Alanine Aminotransferase (ALT/SGPT) 431 U/L (12-78) H Alkaline Phosphatase 217 U/L (46-116) H Total Protein 5.4 G/DL (6.4-8.2) L Albumin 2.0 G/DL (3.4-5.0) L Globulin 3.4 g/dL Albumin/Globulin Ratio 0.6 (1.0-2.7) L Amylase Level 118 U/L (25-115) H Lipase 417 U/L (73-393) H Neurologic Exam Objective PHYSICAL EXAMINATION: GENERAL: He is a well-developed, relatively well-nourished gentleman , lying in an ICU bed, connected to a ventilator through an orotracheal tube. HEAD: Normocephalic and atraumatic. NECK: No neck rigidity was observed. EENT: Benign. NEUROLOGICAL EXAMINATION: MENTAL STATUS EXAMINATION: He opened his eyes on loud vocal stimuli. He however did not follow any commands. He was unable to communicate. Further mental status testing was impossible. SPEECH: Could not be tested. LANGUAGE: Could not be tested. CRANIAL NERVE EXAMINATION: II: He did not blink to threat. III, IV & : The external ocular movements were present on oculocephalic maneuvers. The pupils were 3 mm in diameter, equal, round, regular, and did not react to light. V & VII: The corneal reflexes were present bilaterally, but significantly diminished on the right side compared to the left. VIII: He did not respond to sounds and had no nystagmus. IX & X: The gag reflex was absent on manipulating the endotracheal tube. XI: The sternocleidomastoids and trapezii did not function. XII: Could not be tested adequately. MOTOR SYSTEM: The tone was normal in all four extremities. Examination of muscle mass revealed no focal wasting. Examination of power was impossible to perform he did not move any of his extremities even on deep pain. SENSORY EXAMINATION: He responded appropriately to deep pain. He was unable to cooperate for other sensory modalities. REFLEXES: Trace+ and bilaterally symmetrical at the biceps, triceps, brachioradialis. 0 at both knees and ankles. The plantar response was extensor on the right and mute on the left. COORDINATION, STANCE & GAIT: Could not be tested. ABNORMAL MOVEMENTS: Tremor (7-8 Hz): 0/4 Impression/Recommendations Diagnostic Impression 1. Mr. Marla Gann is an 83-year-old, gentleman, of unknown handedness, with a past history of multiple medical problems including hypertension, diabetes mellitus, dyslipidemia, aortic stenosis, vitamin B12 deficiency, vitamin D deficiency, coronary artery disease, congestive heart failure, and intestinal pathology. He was hospitalized on 10/09/2018 for an altered mental state related to multiple metabolic imbalances. He did improve, but then in the hospital, he has had multiple further episodes of hypoglycemia. On the morning of 10/19/18, his blood sugar dropped to 22. He has also had problems with his respiratory function, progressive renal dysfunction, and on the morning of 10/19/18 was noted to have weakness in his right upper extremity, this problem continues. 2. He continues to be poorly responsive. He does open his eyes on loud vocal stimulation. He does not move his limbs even on deep pain. He continues to be on pressors. He continues to be intubated and artificially ventilated. He continues to be acutely ill. He has exhibited some tremulous movements in the left UE and LE but the EEG revealed no inter-ictal or ictal phenomena. There has been no significant improvement in his neurologic status. 3. On neurological examination, at this time, he opens his eyes on loud vocal stimuli, he however does not follow any commands. He is unable to communicate and further mental status testing is impossible. The corneal reflexes are definitely diminished on the right side compared to the left. He exhibits a severe quadriparesis. His deep tendon reflexes are globally diminished in the upper extremities and lost in the lower extremities. His plantar response is extensor on the right and mute on the left. He has no tremor today. 4. His laboratory data on my initial evaluation revealed that his WBC count was elevated to 16,000. His hemoglobin was low at 7.2 G. His arterial blood gas revealed a pH of 7.18, a pCO2 of 43, and a pO2 of 112. His chemistry panel revealed a sodium of 133, potassium of 5.3, chloride of 91, BUN at 89, creatinine at 5.2, and blood glucose at 22. 5. His EEG done on 10/19/18 revealed a moderately severe encephalopathy with a definite toxic/metabolic component. 6. The Repeat EEG done on 10/23/18 revealed a moderately severe toxic/metabolic encephalopathy. In addition left > right hemispheric dysfunction was seen. The abnormal movements had no EEG correlate. 7. The CT of the brain was benign for acute pathology. 8. His latest laboratory tests reveal that his leukocytosis is worse with a WBC count of 26,300. He is severely hyponatremic with a Na of 121 and chloride of 86. His BUN is elevated at 72 with a creatinine of 4.9. His LFTs are elevated and so is his glucose. 9. The patient's history, neurological examination, and laboratory data are most compatible with a significant toxic metabolic encephalopathy that brought him into the hospital, and now possibly an acute cerebral lesion causing the right hemiparesis. 10. The left UE movement was a tremor. It has now resolved. However the EEG while he was having the tremor revealed no EEG correlate. Recommendations 1. Continue present management. 2. Continue to correct toxic metabolic imbalances. 3. Try to keep the blood pressure >110 mmHg systolic. 4. When possible get MRI of brain. 5. Observe closely in ICU setting. Abram Johnson M.D., M.S.P.H. Abram Johnson MD Oct 24, 2018 14:55
--- NOTE | 2018-10-24 15:00 | NUR ---
NURSE NOTES: Dr. Johnson made aware of patient EEG report was completed, he interpreted results and explained results, no furthers orders given at this time.
--- NOTE | 2018-10-24 15:20 | Pulmonolgy Critical Care Note ---
Critical Care - Asmt/Plan Assessment/Plan: Pulmonary CCM Progress Note Critical Care - Asmt/Plan Problems: (1) Respiratory failure, acute (2) Ventilator dependence (3) CHF (congestive heart failure) (4) CAD (coronary artery disease) (5) NSTEMI (non-ST elevated myocardial infarction) (6) Respiratory acidosis (7) Hemoptysis (8) Hypoglycemia (9) Pneumonia (10) Hypotension (11) Elevated d-dimer (12) Acute kidney injury superimposed on CKD Assessment & Plan: S/P initiation of HD (13) Hyponatremia (14) Sepsis Respiratory: monitor respiratory rate, adjust FIO2, other - HHN Cardiac: continue pressors - NE, Dobut, add Vaso 0.04, continue to monitor HR/ BP Renal: keep IV fluid - 3% NS 50/hr for [address] Porter, check electrolytes, other - Unstable for HD Infectious Disease: check cultures, continue antibiotics - Duong/Vanco Gastrointestinal: hold feedings Endocrine: monitor blood sugar, other - F/U ENDO recs Hematologic: monitor H/H Prophylaxis: Protonix, Heparin - IVUH' Disposition: keep in ICU Time Spent (Minutes): 40 Notes Reviewed: slip seat coverer, cardio, renal, ID, GI, neuro, other - ENDO Discussed with: nurses, consultants, other - Prognosis poor Critical Care - Objective Vital Signs Noted Status: obtunded, other - intubated Condition: critical HEENT: atraumatic, normocephalic Lungs: rhonchi Heart: HR/BP unstable Abdomen: soft, non-tender, active bowel sounds Extremities: edema - 2+ Micro: Critical Care - Subjective ROS Limited/Unobtainable: Yes ICU Day: 5 Intubation Day: 4 Interval Events: Na 116 WCt inc LFT's worse Unable to dialyze Condition: critical IV Access: PICC, central - R Ij Hugh EKG Rhythm: Sinus Rhythm FI02: 40 Vent Support Breath Rate: 20 Vent Support Mode: AC Vent Tidal Volume: 500 Sputum Amount: Small PEEP: 5.0 PIP: 31 Secretions: small thin Fluids: S/P 3% 500 - finished, Na 116 Drips: NE 30, DOBUT 2.5, IVUH Tube Feeding Amount: 0 Subjective: ZACHARY CXR: No change Head CT neg ET-Tube: 7.5 ET Position: 23 Labs: Laboratory Tests Test 10/21/18 20:50 10/21/18 21:00 10/22/18 04:00 10/22/18 12:05 Sodium Level 116 MMOL/L (136-145) *L 117 MMOL/L (136-145) *L 116 MMOL/L (136-145) *L Potassium Level 4.6 MMOL/L (3.5-5.1) 4.6 MMOL/L (3.5-5.1) 4.3 MMOL/L (3.5-5.1) Chloride Level 80 MMOL/L (98-107) L 80 MMOL/L (98-107) L 82 MMOL/L (98-107) L Carbon Dioxide Level 18 MMOL/L (21-32) L 19 MMOL/L (21-32) L 18 MMOL/L (21-32) L Anion Gap 19 mmol/L (5-15) H 19 mmol/L (5-15) H 16 mmol/L (5-15) H Blood Urea Nitrogen 86 mg/dL (7-18) H 87 mg/dL (7-18) H 88 mg/dL (7-18) H Creatinine 5.7 MG/DL (0.55-1.30) H 5.8 MG/DL (0.55-1.30) H 5.8 MG/DL (0.55-1.30) H Estimat Glomerular Filtration Rate mL/min (>60) mL/min (>60) mL/min (>60) Glucose Level 180 MG/DL (74-106) H 135 MG/DL (74-106) H 185 MG/DL (74-106) H Calcium Level 5.8 MG/DL (8.5-10.1) *L 6.0 MG/DL (8.5-10.1) L 6.0 MG/DL (8.5-10.1) L Total Bilirubin 4.1 MG/DL (0.2-1.0) H 4.0 MG/DL (0.2-1.0) H Direct Bilirubin 3.5 MG/DL (0.0-0.3) H 3.4 MG/DL (0.0-0.3) H Aspartate Amino Transf (AST/SGOT) 2107 U/L (15-37) H 2052 U/L (15-37) H Alanine Aminotransferase (ALT/SGPT) 888 U/L (12-78) H 883 U/L (12-78) H Alkaline Phosphatase 189 U/L (46-116) H 186 U/L (46-116) H Total Protein 6.0 G/DL (6.4-8.2) L 5.8 G/DL (6.4-8.2) L Albumin 2.2 G/DL (3.4-5.0) L 2.2 G/DL (3.4-5.0) L Globulin 3.8 g/dL 3.6 g/dL Albumin/Globulin Ratio 0.6 (1.0-2.7) L 0.6 (1.0-2.7) L White Blood Count 26.6 K/UL (4.8-10.8) *H Red Blood Count 3.81 M/UL (4.70-6.10) L Hemoglobin 10.5 G/DL (14.2-18.0) L Hematocrit 31.6 % (42.0-52.0) L Mean Corpuscular Volume 83 FL (80-99) Mean Corpuscular Hemoglobin 27.5 PG (27.0-31.0) Mean Corpuscular Hemoglobin Concent 33.2 G/DL (32.0-36.0) Red Cell Distribution Width 18.9 % (11.6-14.8) H Platelet Count 106 K/UL (150-450) L Mean Platelet Volume 8.8 FL (6.5-10.1) Neutrophils (%) (Auto) % (45.0-75.0) Lymphocytes (%) (Auto) % (20.0-45.0) Monocytes (%) (Auto) % (1.0-10.0) Eosinophils (%) (Auto) % (0.0-3.0) Basophils (%) (Auto) % (0.0-2.0) Differential Total Cells Counted 100 Neutrophils % (Manual) 93 % (45-75) H Lymphocytes % (Manual) 4 % (20-45) L Monocytes % (Manual) 3 % (1-10) Eosinophils % (Manual) 0 % (0-3) Basophils % (Manual) 0 % (0-2) Band Neutrophils 0 % (0-8) Nucleated Red Blood Cells 7 /100 WBC Platelet Estimate Decreased L Platelet Morphology Normal Anisocytosis 1+ [place] Cells 1+ Activated Partial Thromboplast Time 62 SEC (23-33) H 80 SEC (23-33) H Random Vancomycin Level 16.6 ug/mL Critical Care - Objective Last 24 Hour Vital Signs Date Time Temp Pulse Resp B/P (MAP) Pulse Ox O2 Delivery O2 Flow Rate FiO2 10/24/18 15:00 92 33 114/51 (72) 100 10/24/18 14:47 114/51 10/24/18 14:30 84 28 114/61 (78) 100 10/24/18 14:00 91 31 105/48 (67) 100 10/24/18 13:30 91 32 110/49 (69) 100 10/24/18 13:00 92 28 106/56 (73) 99 10/24/18 12:45 110/49 10/24/18 12:40 89 29 40 10/24/18 12:30 92 26 116/50 (72) 100 10/24/18 12:00 Mechanical Ventilator 10/24/18 12:00 99 10/24/18 12:00 98.0 92 26 117/53 (74) 100 10/24/18 12:00 40 10/24/18 11:40 114/37 10/24/18 11:30 94 29 117/54 (75) 100 10/24/18 11:00 92 29 113/65 (81) 100 10/24/18 10:40 88 29 40 10/24/18 10:30 90 27 109/52 (71) 100 10/24/18 10:00 91 16 108/51 (70) 100 10/24/18 09:30 91 20 110/46 (67) 100 10/24/18 09:00 90 16 105/51 (69) 100 10/24/18 08:36 92 30 40 10/24/18 08:30 91 24 94/47 (63) 100 10/24/18 08:00 Mechanical Ventilator 10/24/18 08:00 97 10/24/18 08:00 98.3 90 29 110/43 (65) 100 10/24/18 08:00 40 10/24/18 07:30 90 26 106/65 (79) 100 10/24/18 07:00 91 35 40 10/24/18 07:00 89 26 103/54 (70) 100 10/24/18 06:30 90 26 112/49 (70) 100 10/24/18 06:00 88 26 110/49 (69) 100 10/24/18 05:30 90 25 100/40 (60) 100 10/24/18 05:10 91 27 40 10/24/18 05:00 90 25 102/40 (60) 100 10/24/18 04:30 91 24 107/58 (74) 100 10/24/18 04:00 40 10/24/18 04:00 98.6 90 24 97/43 (61) 100 10/24/18 04:00 91 10/24/18 04:00 Mechanical Ventilator 10/24/18 03:30 90 24 97/45 (62) 100 10/24/18 03:18 89 28 40 10/24/18 03:00 89 28 100/45 (63) 98 10/24/18 02:30 90 28 94/45 (61) 98 10/24/18 02:00 100 23 110/43 (65) 97 10/24/18 01:52 94/48 10/24/18 01:30 100 23 110/43 (65) 97 10/24/18 01:00 101 23 109/43 (65) 97 10/24/18 00:50 104 30 40 10/24/18 00:30 100 23 114/60 (78) 97 10/24/18 00:00 98.2 102 23 108/54 (72) 97 10/24/18 00:00 Mechanical Ventilator 10/23/18 23:30 94 23 104/62 (76) 99 10/23/18 23:00 95 30 40 10/23/18 23:00 94 23 113/47 (69) 99 10/23/18 22:30 94 16 99/70 (80) 99 10/23/18 22:00 97 16 113/55 (74) 99 10/23/18 21:30 98 29 141/61 (87) 100 10/23/18 21:03 100 31 40 10/23/18 21:00 100 29 119/69 (86) 100 10/23/18 20:30 101 16 122/62 (82) 100 10/23/18 20:00 98.0 101 16 125/62 (83) 100 10/23/18 20:00 40 10/23/18 20:00 Mechanical Ventilator 10/23/18 20:00 101 10/23/18 19:18 102 28 40 10/23/18 19:00 103 16 119/50 (73) 100 10/23/18 18:30 103 18 114/59 (77) 100 10/23/18 18:00 99 27 113/50 (71) 99 10/23/18 17:30 91 32 40 10/23/18 17:30 92 29 117/47 (70) 100 10/23/18 17:00 94 29 125/29 (61) 100 10/23/18 16:30 94 33 132/50 (77) 100 10/23/18 16:00 Mechanical Ventilator 10/23/18 16:00 40 10/23/18 16:00 90 10/23/18 16:00 98.2 92 34 121/52 (75) 100 10/23/18 15:49 122/55 10/23/18 15:45 91 32 40 10/23/18 15:30 94 32 125/56 (79) 100 Accucheck: 235 Critical Care - Subjective ROS Limited/Unobtainable: No FI02: 40 Vent Support Breath Rate: 20 Vent Support Mode: AC Vent Tidal Volume: 500 Sputum Amount: Large PEEP: 5.0 PIP: 45 Tube Feeding Amount: 40 I&O: Intake and Output 10/23/18 10/24/18 18:59 06:59 Intake Total 2060.097 ml 1785.263 ml Output Total 0 ml 0 ml Balance 2060.097 ml 1785.263 ml Free Water 150 ml 90 ml IV Total 1380.097 ml 1255.263 ml Tube Feeding 480 ml 440 ml Other 50 ml Output Urine Total 0 ml 0 ml # Bowel Movements 7 3 ET-Tube: 7.5 ET Position: 23 Erick Traylor MD Oct 24, 2018 15:20
--- NOTE | 2018-10-24 16:45 | NUR ---
NURSE NOTES: Levophed drip continue be decrease to 18mcg/min, patient BP remains above 90SBP.
--- NOTE | 2018-10-24 17:32 | NUR ---
NURSE NOTES: Dr. Traylor called to inform of D5W running at 30ml/hr, he ordered to D/c. Dr. Porter will place order for Hemodialysis to correct electrolytes, no verbal orders given.
--- NOTE | 2018-10-24 17:52 | Nephrology Progress Note ---
Assessment/Plan Problem List: (1) Acute kidney injury superimposed on CKD Assessment: no recovery (2) CHF (congestive heart failure) (3) NSTEMI (non-ST elevated myocardial infarction) (4) Hypotension (5) Pneumonia (6) Hypoglycemia (7) Respiratory failure, acute (8) Sepsis (9) Hyponatremia Assessment: better Assessment POOR PROGNOSIS Plan HDin AM Discussed with RN continue pressors abxs per ID follow labs Vent support Subjective Subjective pt was seen in ICU Objective Objective Last 24 Hour Vital Signs Date Time Temp Pulse Resp B/P (MAP) Pulse Ox O2 Delivery O2 Flow Rate FiO2 10/24/18 16:55 98 35 40 10/24/18 16:00 40 10/24/18 16:00 Mechanical Ventilator 10/24/18 15:30 89 10/24/18 15:30 89 29 114/61 (78) 100 10/24/18 15:00 92 33 114/51 (72) 100 10/24/18 14:47 114/51 10/24/18 14:40 90 33 40 10/24/18 14:30 84 28 114/61 (78) 100 10/24/18 14:00 91 31 105/48 (67) 100 10/24/18 13:30 91 32 110/49 (69) 100 10/24/18 13:00 92 28 106/56 (73) 99 10/24/18 12:45 110/49 10/24/18 12:40 89 29 40 10/24/18 12:30 92 26 116/50 (72) 100 10/24/18 12:00 Mechanical Ventilator 10/24/18 12:00 99 10/24/18 12:00 98.0 92 26 117/53 (74) 100 10/24/18 12:00 40 10/24/18 11:40 114/37 10/24/18 11:30 94 29 117/54 (75) 100 10/24/18 11:00 92 29 113/65 (81) 100 10/24/18 10:40 88 29 40 10/24/18 10:30 90 27 109/52 (71) 100 10/24/18 10:00 91 16 108/51 (70) 100 10/24/18 09:30 91 20 110/46 (67) 100 10/24/18 09:00 90 16 105/51 (69) 100 10/24/18 08:36 92 30 40 10/24/18 08:30 91 24 94/47 (63) 100 10/24/18 08:00 Mechanical Ventilator 10/24/18 08:00 97 10/24/18 08:00 98.3 90 29 110/43 (65) 100 10/24/18 08:00 40 10/24/18 07:30 90 26 106/65 (79) 100 10/24/18 07:00 91 35 40 10/24/18 07:00 89 26 103/54 (70) 100 10/24/18 06:30 90 26 112/49 (70) 100 10/24/18 06:00 88 26 110/49 (69) 100 10/24/18 05:30 90 25 100/40 (60) 100 10/24/18 05:10 91 27 40 10/24/18 05:00 90 25 102/40 (60) 100 10/24/18 04:30 91 24 107/58 (74) 100 10/24/18 04:00 40 10/24/18 04:00 98.6 90 24 97/43 (61) 100 10/24/18 04:00 91 10/24/18 04:00 Mechanical Ventilator 10/24/18 03:30 90 24 97/45 (62) 100 10/24/18 03:18 89 28 40 10/24/18 03:00 89 28 100/45 (63) 98 10/24/18 02:30 90 28 94/45 (61) 98 10/24/18 02:00 100 23 110/43 (65) 97 10/24/18 01:52 94/48 10/24/18 01:30 100 23 110/43 (65) 97 10/24/18 01:00 101 23 109/43 (65) 97 10/24/18 00:50 104 30 40 10/24/18 00:30 100 23 114/60 (78) 97 10/24/18 00:00 98.2 102 23 108/54 (72) 97 10/24/18 00:00 Mechanical Ventilator 10/23/18 23:30 94 23 104/62 (76) 99 10/23/18 23:00 95 30 40 10/23/18 23:00 94 23 113/47 (69) 99 10/23/18 22:30 94 16 99/70 (80) 99 10/23/18 22:00 97 16 113/55 (74) 99 10/23/18 21:30 98 29 141/61 (87) 100 10/23/18 21:03 100 31 40 10/23/18 21:00 100 29 119/69 (86) 100 10/23/18 20:30 101 16 122/62 (82) 100 10/23/18 20:00 98.0 101 16 125/62 (83) 100 10/23/18 20:00 40 10/23/18 20:00 Mechanical Ventilator 10/23/18 20:00 101 10/23/18 19:18 102 28 40 10/23/18 19:00 103 16 119/50 (73) 100 10/23/18 18:30 103 18 114/59 (77) 100 10/23/18 18:00 99 27 113/50 (71) 99 Intake and Output 10/23/18 10/24/18 18:59 06:59 Intake Total 2060.097 ml 1785.263 ml Output Total 0 ml 0 ml Balance 2060.097 ml 1785.263 ml Free Water 150 ml 90 ml IV Total 1380.097 ml 1255.263 ml Tube Feeding 480 ml 440 ml Other 50 ml Output Urine Total 0 ml 0 ml # Bowel Movements 7 3 Laboratory Tests 10/23/18 20:18: Activated Partial Thromboplast Time 57H 10/24/18 03:45: Activated Partial Thromboplast Time 70H 10/24/18 05:13: White Blood Count 26.3*H, Red Blood Count 3.37L, Hemoglobin 9.2L, Hematocrit 28.5L, Mean Corpuscular Volume 84, Mean Corpuscular Hemoglobin 27.4, Mean Corpuscular Hemoglobin Concent 32.4, Red Cell Distribution Width 20.0H, Platelet Count 52#L, Mean Platelet Volume 10.6H, Neutrophils (%) (Auto) , Lymphocytes (%) (Auto) , Monocytes (%) (Auto) , Eosinophils (%) (Auto) , Basophils (%) (Auto) , Differential Total Cells Counted 100, Neutrophils % ( Manual) 85H, Lymphocytes % (Manual) 4L, Monocytes % (Manual) 8, Eosinophils % ( Manual) 2, Basophils % (Manual) 0, Band Neutrophils 1, Platelet Estimate DecreasedL, Platelet Morphology Normal, Polychromasia 2+, Hypochromasia 1+, Anisocytosis 3+, Sodium Level 121L, Potassium Level 3.8, Chloride Level 86L, Carbon Dioxide Level 16L, Anion Gap 19H, Blood Urea Nitrogen 72H, Creatinine 4.9H, Estimat Glomerular Filtration Rate , Glucose Level 195H, Calcium Level 6.9 #L, Total Bilirubin 5.3H, Direct Bilirubin 4.2H, Aspartate Amino Transf (AST/ SGOT) 413H, Alanine Aminotransferase (ALT/SGPT) 431H, Alkaline Phosphatase 217H , Total Protein 5.4L, Albumin 2.0L, Globulin 3.4, Albumin/Globulin Ratio 0.6L, Amylase Level 118H, Lipase 417H 10/24/18 14:30: Heparin-PF4 Antibody Screen [Pending] Height (Feet): 5 Height (Inches): 2.00 Weight (Pounds): 148 Cardiovascular: regular rhythm Respiratory/Chest: rhonchi - bilaterally Extremities: severe edema Mario Porter MD Oct 24, 2018 17:52
--- NOTE | 2018-10-24 18:30 | Electroencephalogram ---
DATE OF PROCEDURE: 10/23/2018 REQUESTING PHYSICIAN: Dg Key M.D. HISTORY: This EEG was performed on an 83-year-old gentleman with a history of multiple medical problems including respiratory failure, renal failure, congestive heart failure, and significant episodes of hypoglycemia, who has had an alteration in his mental state for a few days now and in addition, was exhibiting some left upper and lower extremity jerking movements. The purpose of this EEG was to evaluate the patient for the degree and type of cerebral dysfunction and to exclude ongoing ictal or interictal phenomena as a reason for his abnormal jerky movements. TECHNICAL NOTE: This EEG was performed on a [email or web address] with electrodes placed on the scalp according to the International 10-20 system. [id number] and [id number] montages were used. The EEG was technically satisfactory and was performed while the patient was in a poorly responsive state. OBSERVATIONS: In the poorly responsive state, the background activity consisted of 4-5 Hz theta and 2.5-3 Hz delta activity. Triphasic waveforms with an anterior to posterior gradient were also seen throughout the tracing. Throughout the tracing, the frequencies over the left hemisphere were slower than the right hemisphere. The patient was noted to have multiple episodes of tremulousness in his left upper and lower extremities and these were not associated with any EEG correlate. IMPRESSION: This is an abnormal EEG characterized by: 1. Slowing of the background in the 4-5 Hz theta and 2.5-3 Hz delta range. 2. The presence of triphasic waveforms. 3. Left greater than right hemispheric dysfunction throughout the tracing. 4. Tremor involving the left upper and lower extremities associated with no EEG correlate. COMMENT: This study is consistent with: 1. An encephalopathy of a moderately severe degree with a definite toxic metabolic component as evidenced by the triphasic waveforms. 2. Left greater than right hemispheric dysfunction. Abram Johnson M.D., M.S.P.H. DR: Mamadou JOB#: [id number] ALEJANDRO
--- NOTE | 2018-10-24 19:20 | NUR ---
NURSE NOTES: Called [facility] nephrology to schedule for Hemodialysis treatment for 10/25, routine HD.
--- NOTE | 2018-10-24 19:22 | NUR ---
RESPIRATORY NOTE: Received pt. on 840 vent. Vent settings are: A/C rate of 20, Vt 500, FI02 40%, PEEP +5. No respiratory distress noted, pt. Sp02 @ 100%. Vent plugged on red outlet. Ambu bag @ BS. Will continue to monitor pt.
--- NOTE | 2018-10-24 19:30 | NUR ---
HAND-OFF: Report given to JACQUI Samuel.
--- NOTE | 2018-10-24 19:59 | Consultation ---
History of Present Illness General Date patient seen: Oct 24, 2018 Present Illness Allergies: Coded Allergies: PENICILLINS (Verified Allergy, Unknown, 10/09/18) Medication History Scheduled Aspirin* (Aspir 81*), 81 MG ORAL DAILY, (Reported) Bimatoprost (Lumigan), 1 DROP BOTH EYES DAILY, (Reported) Clopidogrel* (Clopidogrel*), 75 MG ORAL DAILY, (Reported) Dexlansoprazole (Dexilant), 30 MG ORAL DAILY, (Reported) Docusate Sodium* (Docusate Sodium*), 100 MG ORAL TWICE A DAY, (Reported) Furosemide* (Lasix*), 80 MG ORAL BID, (Reported) Metolazone (Metolazone), 5 MG PO 3XW, (Reported) Simvastatin (Zocor), 20 MG ORAL BEDTIME, (Reported) [calcium oyster], 500 MG PO BID, (Reported) Miscellaneous Medications Lisinopril* (Lisinopril*), 2.5 MG ORAL, (Reported) [calcium], (Reported) Patient History Healthcare decision maker Resuscitation status Full Code Advanced Directive on File Physical Exam Last 24 Hour Vital Signs Date Time Temp Pulse Resp B/P (MAP) Pulse Ox O2 Delivery O2 Flow Rate FiO2 10/24/18 19:21 86 30 40 10/24/18 18:30 90 14 99/82 (88) 100 10/24/18 18:00 89 17 92/56 (68) 100 10/24/18 17:30 89 17 97/52 (67) 100 10/24/18 17:00 89 26 95/52 (66) 100 10/24/18 16:55 98 35 40 10/24/18 16:30 89 29 103/45 (64) 100 10/24/18 16:00 40 10/24/18 16:00 91 24 103/50 (67) 100 10/24/18 16:00 Mechanical Ventilator 10/24/18 15:30 89 10/24/18 15:30 89 29 114/61 (78) 100 10/24/18 15:00 92 33 114/51 (72) 100 10/24/18 14:47 114/51 10/24/18 14:40 90 33 40 10/24/18 14:30 84 28 114/61 (78) 100 10/24/18 14:00 91 31 105/48 (67) 100 10/24/18 13:30 91 32 110/49 (69) 100 10/24/18 13:00 92 28 106/56 (73) 99 10/24/18 12:45 110/49 10/24/18 12:40 89 29 40 10/24/18 12:30 92 26 116/50 (72) 100 10/24/18 12:00 Mechanical Ventilator 10/24/18 12:00 99 10/24/18 12:00 98.0 92 26 117/53 (74) 100 10/24/18 12:00 40 10/24/18 11:40 114/37 10/24/18 11:30 94 29 117/54 (75) 100 10/24/18 11:00 92 29 113/65 (81) 100 10/24/18 10:40 88 29 40 10/24/18 10:30 90 27 109/52 (71) 100 10/24/18 10:00 91 16 108/51 (70) 100 10/24/18 09:30 91 20 110/46 (67) 100 10/24/18 09:00 90 16 105/51 (69) 100 10/24/18 08:36 92 30 40 10/24/18 08:30 91 24 94/47 (63) 100 10/24/18 08:00 Mechanical Ventilator 10/24/18 08:00 97 10/24/18 08:00 98.3 90 29 110/43 (65) 100 10/24/18 08:00 40 10/24/18 07:30 90 26 106/65 (79) 100 10/24/18 07:00 91 35 40 10/24/18 07:00 89 26 103/54 (70) 100 10/24/18 06:30 90 26 112/49 (70) 100 10/24/18 06:00 88 26 110/49 (69) 100 10/24/18 05:30 90 25 100/40 (60) 100 10/24/18 05:10 91 27 40 10/24/18 05:00 90 25 102/40 (60) 100 10/24/18 04:30 91 24 107/58 (74) 100 10/24/18 04:00 40 10/24/18 04:00 98.6 90 24 97/43 (61) 100 10/24/18 04:00 91 10/24/18 04:00 Mechanical Ventilator 10/24/18 03:30 90 24 97/45 (62) 100 10/24/18 03:18 89 28 40 10/24/18 03:00 89 28 100/45 (63) 98 10/24/18 02:30 90 28 94/45 (61) 98 10/24/18 02:00 100 23 110/43 (65) 97 10/24/18 01:52 94/48 10/24/18 01:30 100 23 110/43 (65) 97 10/24/18 01:00 101 23 109/43 (65) 97 10/24/18 00:50 104 30 40 10/24/18 00:30 100 23 114/60 (78) 97 10/24/18 00:00 98.2 102 23 108/54 (72) 97 10/24/18 00:00 Mechanical Ventilator 10/23/18 23:30 94 23 104/62 (76) 99 10/23/18 23:00 95 30 40 10/23/18 23:00 94 23 113/47 (69) 99 10/23/18 22:30 94 16 99/70 (80) 99 10/23/18 22:00 97 16 113/55 (74) 99 10/23/18 21:30 98 29 141/61 (87) 100 10/23/18 21:03 100 31 40 10/23/18 21:00 100 29 119/69 (86) 100 10/23/18 20:30 101 16 122/62 (82) 100 10/23/18 20:00 98.0 101 16 125/62 (83) 100 10/23/18 20:00 40 10/23/18 20:00 Mechanical Ventilator 10/23/18 20:00 101 Intake and Output 10/23/18 10/24/18 18:59 06:59 Intake Total 2060.097 ml 1785.263 ml Output Total 0 ml 0 ml Balance 2060.097 ml 1785.263 ml Free Water 150 ml 90 ml IV Total 1380.097 ml 1255.263 ml Tube Feeding 480 ml 440 ml Other 50 ml Output Urine Total 0 ml 0 ml # Bowel Movements 7 3 Laboratory Tests Test 10/23/18 20:18 10/24/18 03:45 10/24/18 05:13 10/24/18 14:30 Activated Partial Thromboplast Time 57 SEC (23-33) H 70 SEC (23-33) H White Blood Count 26.3 K/UL (4.8-10.8) *H Red Blood Count 3.37 M/UL (4.70-6.10) L Hemoglobin 9.2 G/DL (14.2-18.0) L Hematocrit 28.5 % (42.0-52.0) L Mean Corpuscular Volume 84 FL (80-99) Mean Corpuscular Hemoglobin 27.4 PG (27.0-31.0) Mean Corpuscular Hemoglobin Concent 32.4 G/DL (32.0-36.0) Red Cell Distribution Width 20.0 % (11.6-14.8) H Platelet Count 52 K/UL (150-450) #L Mean Platelet Volume 10.6 FL (6.5-10.1) H Neutrophils (%) (Auto) % (45.0-75.0) Lymphocytes (%) (Auto) % (20.0-45.0) Monocytes (%) (Auto) % (1.0-10.0) Eosinophils (%) (Auto) % (0.0-3.0) Basophils (%) (Auto) % (0.0-2.0) Differential Total Cells Counted 100 Neutrophils % (Manual) 85 % (45-75) H Lymphocytes % (Manual) 4 % (20-45) L Monocytes % (Manual) 8 % (1-10) Eosinophils % (Manual) 2 % (0-3) Basophils % (Manual) 0 % (0-2) Band Neutrophils 1 % (0-8) Platelet Estimate Decreased L Platelet Morphology Normal Polychromasia 2+ Hypochromasia 1+ Anisocytosis 3+ Sodium Level 121 MMOL/L (136-145) L Potassium Level 3.8 MMOL/L (3.5-5.1) Chloride Level 86 MMOL/L (98-107) L Carbon Dioxide Level 16 MMOL/L (21-32) L Anion Gap 19 mmol/L (5-15) H Blood Urea Nitrogen 72 mg/dL (7-18) H Creatinine 4.9 MG/DL (0.55-1.30) H Estimat Glomerular Filtration Rate mL/min (>60) Glucose Level 195 MG/DL (74-106) H Calcium Level 6.9 MG/DL (8.5-10.1) #L Total Bilirubin 5.3 MG/DL (0.2-1.0) H Direct Bilirubin 4.2 MG/DL (0.0-0.3) H Aspartate Amino Transf (AST/SGOT) 413 U/L (15-37) H Alanine Aminotransferase (ALT/SGPT) 431 U/L (12-78) H Alkaline Phosphatase 217 U/L (46-116) H Total Protein 5.4 G/DL (6.4-8.2) L Albumin 2.0 G/DL (3.4-5.0) L Globulin 3.4 g/dL Albumin/Globulin Ratio 0.6 (1.0-2.7) L Amylase Level 118 U/L (25-115) H Lipase 417 U/L (73-393) H Heparin-PF4 Antibody Screen Pending Height (Feet): 5 Height (Inches): 2.00 Weight (Pounds): 148 Medications Current Medications Medications (Trade) Dose Ordered Sig/Ashely Route PRN Reason Start Time Stop Time Status Last Admin Dose Admin Acetaminophen (Tylenol) 650 mg Q6H PRN ORAL Mild Pain/Temp > 100.5 10/18/18 16:30 11/08/18 04:23 Albumin Human 50 ml @ 50 mls/hr ONCE PRN IV SBP < 90mmHg during HD 10/23/18 17:45 10/24/18 23:59 10/23/18 17:59 Albumin Human 100 ml @ 200 mls/hr PRN PRN IV sbp<90 during hd 10/25/18 18:00 10/25/18 23:59 Aspirin (Ecotrin) 81 mg DAILY ORAL 10/19/18 09:00 11/09/18 08:59 10/24/18 09:54 Atorvastatin Calcium (Lipitor) 40 mg BEDTIME ORAL 10/18/18 21:00 11/09/18 20:59 10/23/18 21:08 Calcium Carbonate (Tums) 500 mg BID GT 10/20/18 18:00 11/09/18 08:59 10/24/18 18:29 Chlorhexidine Gluconate (Anai-Hex 2%) 1 applic DAILY@2000 TOPIC 10/18/18 20:00 11/12/18 19:59 10/23/18 20:18 Dextrose (Dextrose 50%) 25 ml Q30M PRN IV Hypoglycemia 10/23/18 08:15 11/22/18 08:14 Dextrose (Dextrose 50%) 50 ml Q30M PRN IV Hypoglycemia 10/23/18 08:15 11/22/18 08:14 Dobutamine HCl 250 ml @ 10.05 mls/ hr Q24H IV 10/19/18 11:40 11/18/18 11:39 10/22/18 12:43 Dopamine HCl/ Dextrose 250 ml @ 0 mls/hr Q24H IV 10/19/18 12:45 11/18/18 12:44 10/20/18 17:43 Fluconazole/ Sodium Chloride 100 ml @ 100 mls/hr Q24H IV 10/22/18 20:00 10/29/18 19:59 10/23/18 20:18 Haloperidol Lactate (Haldol) 5 mg Q6H PRN IM Agitation 10/18/18 17:00 11/17/18 16:59 Heparin Sodium (Porcine) (Heparin Sod 1000 units/ml 10ml) 500 unit ONCE PRN IV dialysis 10/25/18 18:00 10/25/18 23:59 Insulin Aspart (NovoLOG) EVERY 4 HOURS SUBQ 10/23/18 09:00 11/22/18 08:59 10/24/18 18:33 Latanoprost (Xalatan) 1 drop BEDTIME BOTH EYES 10/18/18 21:00 11/10/18 20:59 10/23/18 22:16 Meropenem 500 mg/ Sodium Chloride 50 ml @ 100 mls/hr Q24HRS IVPB 10/25/18 00:00 10/30/18 00:00 Norepinephrine Bitartrate 16 mg/ Dextrose 500 ml @ 0 mls/hr Q24H IV 10/20/18 18:00 11/19/18 17:59 10/24/18 14:47 Ondansetron HCl (Zofran) 4 mg Q8H PRN IVP Nausea & Vomiting 10/18/18 17:00 11/17/18 16:59 Pantoprazole (Protonix) 40 mg ACBREAKFAST ORAL 10/19/18 06:30 11/09/18 08:59 10/24/18 06:33 Promethazine HCl (Phenergan Plain) 6.25 mg Q6H PRN ORAL For Cough 10/18/18 16:45 11/10/18 04:32 Vancomycin HCl (Firvanq) 125 mg FOUR TIMES A DAY ORAL 10/22/18 21:00 10/29/18 20:59 10/24/18 18:30 Vancomycin HCl (Vanco rx to dose) 1 ea DAILY PRN MISC Per rx protocol 10/19/18 23:30 11/18/18 23:29 Vasopressin 100 units/Sodium Chloride 100 ml @ 2.4 mls/hr Q24H IV 10/22/18 15:00 11/21/18 14:59 10/23/18 20:21 Assessment/Plan Assessment/Plan Hematology Consultation REQ MD: Shahid DOS: 10/24/18 RFC: Panctyopenia, nucleated cells ID Most of history is per chart. The patient is intubated in ICU. I was called to evaluate for development of lower platelet counts, as well as anemia, with nucleated cells that are noted in the smear, patient very ill at this time, remains with poor prognosis, on a vent, on abx. PAST MEDICAL HISTORY: 1. Hypertension. 2. Diabetes. 3. Prostate cancer. 4. Peripheral neuropathy. 5. Peripheral vascular disease. 6. Hyperlipidemia. 7. Aortic valve stenosis. 8. Lower extremity claudication. 9. B12 deficiency. 10. Vitamin D deficiency. 11. History of cholecystitis, status post cholecystectomy. 12. Osteopenia. 13. Coronary artery disease and history of percutaneous coronary interventions. 14. Congestive heart failure. 15. Diastolic heart failure. 16. Mitral regurgitation. 17. Hypoalbuminemia. 18. Pleural effusions. ALLERGIES: Penicillin. MEDICATIONS: Please see medication reconciliation list. SOCIAL HISTORY: There is no recent history of tobacco, alcohol, or illicit drug abuse. 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 FAMILY HISTORY: Noncontributory. REVIEW OF SYSTEMS: Unable to obtain. PHYSICAL EXAMINATION: VITAL SIGNS: Temperature is 98.7, pulse is 96, respirations 23, blood pressure 96/48. HEENT: Normocephalic and atraumatic. Mild scleral icterus. NECK: Supple. On vent CARDIOVASCULAR: Tachycardic. Regular rr, Plus S1, S2. There is a soft murmur at the left sternal border. LUNGS: Decreased breath sounds bilaterally diffusely on supine exam. ABDOMEN: Distended, tympanic to percussion. Hypoactive bowel sounds. EXTREMITIES: No cyanosis, no clubbing, no edema. NEUROLOGIC: Unable to obtain given the patient is on vent. Laboratory Tests Test 10/23/18 20:18 10/24/18 03:45 10/24/18 05:13 10/24/18 14:30 Activated Partial Thromboplast Time 57 SEC (23-33) H 70 SEC (23-33) H White Blood Count 26.3 K/UL (4.8-10.8) *H Red Blood Count 3.37 M/UL (4.70-6.10) L Hemoglobin 9.2 G/DL (14.2-18.0) L Hematocrit 28.5 % (42.0-52.0) L Mean Corpuscular Volume 84 FL (80-99) Mean Corpuscular Hemoglobin 27.4 PG (27.0-31.0) Mean Corpuscular Hemoglobin Concent 32.4 G/DL (32.0-36.0) Red Cell Distribution Width 20.0 % (11.6-14.8) H Platelet Count 52 K/UL (150-450) #L Mean Platelet Volume 10.6 FL (6.5-10.1) H Neutrophils (%) (Auto) % (45.0-75.0) Lymphocytes (%) (Auto) % (20.0-45.0) Monocytes (%) (Auto) % (1.0-10.0) Eosinophils (%) (Auto) % (0.0-3.0) Basophils (%) (Auto) % (0.0-2.0) Differential Total Cells Counted 100 Neutrophils % (Manual) 85 % (45-75) H Lymphocytes % (Manual) 4 % (20-45) L Monocytes % (Manual) 8 % (1-10) Eosinophils % (Manual) 2 % (0-3) Basophils % (Manual) 0 % (0-2) Band Neutrophils 1 % (0-8) Platelet Estimate Decreased L Platelet Morphology Normal Polychromasia 2+ Hypochromasia 1+ Anisocytosis 3+ Sodium Level 121 MMOL/L (136-145) L Potassium Level 3.8 MMOL/L (3.5-5.1) Chloride Level 86 MMOL/L (98-107) L Carbon Dioxide Level 16 MMOL/L (21-32) L Anion Gap 19 mmol/L (5-15) H Blood Urea Nitrogen 72 mg/dL (7-18) H Creatinine 4.9 MG/DL (0.55-1.30) H Estimat Glomerular Filtration Rate mL/min (>60) Glucose Level 195 MG/DL (74-106) H Calcium Level 6.9 MG/DL (8.5-10.1) #L Total Bilirubin 5.3 MG/DL (0.2-1.0) H Direct Bilirubin 4.2 MG/DL (0.0-0.3) H Aspartate Amino Transf (AST/SGOT) 413 U/L (15-37) H Alanine Aminotransferase (ALT/SGPT) 431 U/L (12-78) H Alkaline Phosphatase 217 U/L (46-116) H Total Protein 5.4 G/DL (6.4-8.2) L Albumin 2.0 G/DL (3.4-5.0) L Globulin 3.4 g/dL Albumin/Globulin Ratio 0.6 (1.0-2.7) L Amylase Level 118 U/L (25-115) H Lipase 417 U/L (73-393) H Heparin-PF4 Antibody Screen Pending ASSESSMENT/RECS: # Thrombocytopenia -- multiple etiologies possible, has been on heparin gtt which was discontinued on 10/24 --> HIT antibody has been ordered --> smear has been reviewed, no e/o schistocytes is noted --> duplex lower extremities ordered to r/o dvt, r/o hit --> will also obtain a hiv panel along with w/u for anemia --> obtain a flow cytometry to r/o leukemia/mds # Leukocytosis likely related to underlying sepsis --> r/o other underlying cuases --> on abx, have ordered a flow cyotmry --> if stable, can consider a bone marrow biopsy given nucleated cells on the peripheral smear that are persistent # Respiratory failure on a cent --> as per pulm management # Hyponatremia on ivf as per nephro # Colonic distention, abnormal liver function tests. --> as per gi # ESRD on hd The timing of this note does not necessarily reflect the time of the patient was seen. Greatly appreciate consultation! Rah Ferreira MD Oct 24, 2018 19:59
[2018-10-24] MEDS: Dyna-Hex 2% Top Sol 2oz TOPIC SCH (20:00)
[2018-10-24] MEDS: Vasopressin 100 UNITS in NS 95 ML IV SCH (20:00)
--- NOTE | 2018-10-24 20:00 | NUR ---
NURSE NOTES: Patient repositioned, oral care provided. NAD, Pressors ongoing.
[2018-10-24] MEDS: Atorvastatin 20mg tab ORAL SCH (20:33)
[2018-10-24] MEDS: Latanoprost 0.005% Opth 2.5ml Soln BOTH EYES SCH (20:33)
--- NOTE | 2018-10-24 21:13 | General Progress Note ---
Assessment/Plan Problem List: (1) Acute metabolic encephalopathy ICD Codes: G93.41 - Metabolic encephalopathy SNOMED: 53448531, [id number] Assessment/Plan the pt lacks capacity to make decisions next of keen should makes all the decisions cont bilat restraints haldol prn for agitation rec dnr/dni Subjective Allergies: Coded Allergies: PENICILLINS (Verified Allergy, Unknown, 10/09/18) Subjective the pt is lethargic open eyes agitated at times Objective Last 24 Hour Vital Signs Date Time Temp Pulse Resp B/P (MAP) Pulse Ox O2 Delivery O2 Flow Rate FiO2 10/24/18 19:30 86 38 105/45 (65) 100 10/24/18 19:21 86 30 40 10/24/18 19:00 89 28 110/51 (70) 100 10/24/18 18:30 90 14 99/82 (88) 100 10/24/18 18:00 89 17 92/56 (68) 100 10/24/18 17:30 89 17 97/52 (67) 100 10/24/18 17:00 89 26 95/52 (66) 100 10/24/18 16:55 98 35 40 10/24/18 16:30 89 29 103/45 (64) 100 10/24/18 16:00 40 10/24/18 16:00 91 24 103/50 (67) 100 10/24/18 16:00 Mechanical Ventilator 10/24/18 15:30 89 10/24/18 15:30 89 29 114/61 (78) 100 10/24/18 15:00 92 33 114/51 (72) 100 10/24/18 14:47 114/51 10/24/18 14:40 90 33 40 10/24/18 14:30 84 28 114/61 (78) 100 10/24/18 14:00 91 31 105/48 (67) 100 10/24/18 13:30 91 32 110/49 (69) 100 10/24/18 13:00 92 28 106/56 (73) 99 10/24/18 12:45 110/49 10/24/18 12:40 89 29 40 10/24/18 12:30 92 26 116/50 (72) 100 10/24/18 12:00 Mechanical Ventilator 10/24/18 12:00 99 10/24/18 12:00 98.0 92 26 117/53 (74) 100 10/24/18 12:00 40 10/24/18 11:40 114/37 10/24/18 11:30 94 29 117/54 (75) 100 10/24/18 11:00 92 29 113/65 (81) 100 10/24/18 10:40 88 29 40 10/24/18 10:30 90 27 109/52 (71) 100 10/24/18 10:00 91 16 108/51 (70) 100 10/24/18 09:30 91 20 110/46 (67) 100 10/24/18 09:00 90 16 105/51 (69) 100 10/24/18 08:36 92 30 40 10/24/18 08:30 91 24 94/47 (63) 100 10/24/18 08:00 Mechanical Ventilator 10/24/18 08:00 97 10/24/18 08:00 98.3 90 29 110/43 (65) 100 10/24/18 08:00 40 10/24/18 07:30 90 26 106/65 (79) 100 10/24/18 07:00 91 35 40 10/24/18 07:00 89 26 103/54 (70) 100 10/24/18 06:30 90 26 112/49 (70) 100 10/24/18 06:00 88 26 110/49 (69) 100 10/24/18 05:30 90 25 100/40 (60) 100 10/24/18 05:10 91 27 40 10/24/18 05:00 90 25 102/40 (60) 100 10/24/18 04:30 91 24 107/58 (74) 100 10/24/18 04:00 40 10/24/18 04:00 98.6 90 24 97/43 (61) 100 10/24/18 04:00 91 10/24/18 04:00 Mechanical Ventilator 10/24/18 03:30 90 24 97/45 (62) 100 10/24/18 03:18 89 28 40 10/24/18 03:00 89 28 100/45 (63) 98 10/24/18 02:30 90 28 94/45 (61) 98 10/24/18 02:00 100 23 110/43 (65) 97 10/24/18 01:52 94/48 10/24/18 01:30 100 23 110/43 (65) 97 10/24/18 01:00 101 23 109/43 (65) 97 10/24/18 00:50 104 30 40 10/24/18 00:30 100 23 114/60 (78) 97 10/24/18 00:00 98.2 102 23 108/54 (72) 97 10/24/18 00:00 Mechanical Ventilator 10/23/18 23:30 94 23 104/62 (76) 99 10/23/18 23:00 95 30 40 10/23/18 23:00 94 23 113/47 (69) 99 10/23/18 22:30 94 16 99/70 (80) 99 10/23/18 22:00 97 16 113/55 (74) 99 10/23/18 21:30 98 29 141/61 (87) 100 Intake and Output 10/23/18 10/24/18 19:00 07:00 Intake Total 2056.070 ml 1776.698 ml Output Total 0 ml 0 ml Balance 2056.070 ml 1776.698 ml Free Water 150 ml 90 ml IV Total 1376.070 ml 1246.698 ml Tube Feeding 480 ml 440 ml Other 50 ml Output Urine Total 0 ml 0 ml # Bowel Movements 7 3 Laboratory Tests 10/24/18 03:45: Activated Partial Thromboplast Time 70H 10/24/18 05:13: White Blood Count 26.3*H, Red Blood Count 3.37L, Hemoglobin 9.2L, Hematocrit 28.5L, Mean Corpuscular Volume 84, Mean Corpuscular Hemoglobin 27.4, Mean Corpuscular Hemoglobin Concent 32.4, Red Cell Distribution Width 20.0H, Platelet Count 52#L, Mean Platelet Volume 10.6H, Neutrophils (%) (Auto) , Lymphocytes (%) (Auto) , Monocytes (%) (Auto) , Eosinophils (%) (Auto) , Basophils (%) (Auto) , Differential Total Cells Counted 100, Neutrophils % ( Manual) 85H, Lymphocytes % (Manual) 4L, Monocytes % (Manual) 8, Eosinophils % ( Manual) 2, Basophils % (Manual) 0, Band Neutrophils 1, Platelet Estimate DecreasedL, Platelet Morphology Normal, Polychromasia 2+, Hypochromasia 1+, Anisocytosis 3+, Sodium Level 121L, Potassium Level 3.8, Chloride Level 86L, Carbon Dioxide Level 16L, Anion Gap 19H, Blood Urea Nitrogen 72H, Creatinine 4.9H, Estimat Glomerular Filtration Rate , Glucose Level 195H, Calcium Level 6.9 #L, Total Bilirubin 5.3H, Direct Bilirubin 4.2H, Aspartate Amino Transf (AST/ SGOT) 413H, Alanine Aminotransferase (ALT/SGPT) 431H, Alkaline Phosphatase 217H , Total Protein 5.4L, Albumin 2.0L, Globulin 3.4, Albumin/Globulin Ratio 0.6L, Amylase Level 118H, Lipase 417H 10/24/18 14:30: Heparin-PF4 Antibody Screen [Pending] Height (Feet): 5 Height (Inches): 2.00 Weight (Pounds): 148 General Appearance: lethargic, confused Danna Sanchez MD Oct 24, 2018 21:13
--- NOTE | 2018-10-24 22:00 | NUR ---
NURSE NOTES: Patient repositioned, oral care provided, NAD, Vitals remains stable. Pressors ongoing.
[2018-10-25] VITALS (53 sets, daily range): BP systolic 66–148; BP diastolic 19–99
--- NOTE | 2018-10-25 | NUR ---
NURSE NOTES: Patient repositioned, pressors ongoing, afebrile, BP stable with pressors, pressors being titrated down.
[2018-10-25] MEDS: NovoLOG Insulin Flexpen SUBQ SCH ×6 (01:26→21:14)
--- NOTE | 2018-10-25 02:00 | NUR ---
NURSE NOTES: Patient repositioned, suctioned and provided oral care. Feeds ongoing and pressors ongoing. No new acute changes.
--- NOTE | 2018-10-25 04:00 | NUR ---
NURSE NOTES: Patient repositioned and cleaned, central line dressing changed. Labs drawn.
--- NOTE | 2018-10-25 06:00 | NUR ---
NURSE NOTES: Patient repositioned, VS remains stable, no acute distress at this time. Will continue to monitor.
[2018-10-25 06:04] LABS: HEMATOCRIT 27.1 % (42.0-52.0); HEMOGLOBIN 8.9 G/DL (14.2-18.0); MEAN CORPUSCULAR VOLUME 84 FL (80-99); PLATELET COUNT 64 K/UL (150-450); RED BLOOD COUNT 3.21 M/UL (4.70-6.10); RED CELL DISTRIBUTION WIDTH 21.9 % (11.6-14.8); WHITE BLOOD COUNT 19.5 K/UL (4.8-10.8)
[2018-10-25 06:30] LABS: LACTATE DEHYDROGENASE 598 U/L (81-234)
[2018-10-25 06:52] LABS: ALANINE AMINOTRANSFERASE 299 U/L (12-78); ALBUMIN 1.8 G/DL (3.4-5.0); ALBUMIN/GLOBULIN RATIO 0.5 (1.0-2.7); ALKALINE PHOSPHATASE 247 U/L (46-116); ANION GAP 18 mmol/L (5-15); ASPARTATE AMINO TRANSFERASE 231 U/L (15-37); BILIRUBIN,TOTAL 5.5 MG/DL (0.2-1.0); BLOOD UREA NITROGEN 86 mg/dL (7-18); CALCIUM 6.7 MG/DL (8.5-10.1); CARBON DIOXIDE 17 MMOL/L (21-32); CHLORIDE 84 MMOL/L (98-107); CREATININE 5.3 MG/DL (0.55-1.30); POTASSIUM 3.6 MMOL/L (3.5-5.1)
[2018-10-25 06:53] LABS: SODIUM 119 MMOL/L (136-145)
[2018-10-25 06:55] LABS: BILIRUBIN,DIRECT 4.5 MG/DL (0.0-0.3)
[2018-10-25 07:25] LABS: % IRON SATURATION 19 % (15-50); IRON 25 ug/dL (50-175); TOTAL IRON BINDING CAPACITY 133 ug/dL (250-450)
--- NOTE | 2018-10-25 07:31 | NUR ---
RESPIRATORY NOTE: received pt on vent, intubated with ETT 7.5 placed 23 cm at the lip, secured via anchor fast. no redness or skin breakdown visible around facial area. pt tachypneic with RR of 32-34. secretions are blood-tinged and thick. alarms are on and audible with vent plugged into redoutlet. ambubag at bedside. will cont to monitor
--- NOTE | 2018-10-25 07:35 | NUR ---
NURSE NOTES: Received report from Jimmie OSMAN. Pt obtunded, does not follow commands. Pt on cardiac exercise specialist, SR. Pt orally intubated ETT 7.5, 23 cm lip line, AC 20, TV 500, 40% FIO2, PEEP 5. OGT with nepro at 40 cc/hr. Rectal tube intact draining brown liquid stool to gravity.l. KIM PICC intact and RIJ cem intact. Safety measures in place with bed locked and in lowest position, side rails x3 up and bed alarm on. Will continue to monitor and continue plan of care.
[2018-10-25 07:42] LABS: AMYLASE 143 U/L (25-115); FERRITIN 994 NG/ML (8-388)
--- NOTE | 2018-10-25 08:12 | General Progress Note ---
Assessment/Plan Problem List: (1) CKD (chronic kidney disease) ICD Codes: N18.9 - Chronic kidney disease, unspecified SNOMED: 112362888 (2) Hypoglycemia ICD Codes: E16.2 - Hypoglycemia, unspecified SNOMED: 346381189 (3) Altered mental status ICD Codes: R41.82 - Altered mental status, unspecified SNOMED: 218262244 Assessment/Plan continue glucose monitoring - low dose Novolog coverage hypoglycemia protocol in order Subjective ROS Limited/Unobtainable: Yes Allergies: Coded Allergies: PENICILLINS (Verified Allergy, Unknown, 10/09/18) Subjective events noted remained intubated on pressors no hypoglycemia TF is tolerated at 40 mL/hr Na is low Item Value Date Time Bedside Blood Glucose 203 mg/dl H 10/25/18 0508 Bedside Blood Glucose 205 mg/dl H 10/25/18 0126 Bedside Blood Glucose 244 mg/dl H 10/24/18 2100 Bedside Blood Glucose 225 mg/dl H 10/24/18 1833 Bedside Blood Glucose 235 mg/dl H 10/24/18 1346 Objective Last 24 Hour Vital Signs Date Time Temp Pulse Resp B/P (MAP) Pulse Ox O2 Delivery O2 Flow Rate FiO2 10/25/18 07:28 82 29 40 10/25/18 07:00 85 25 108/29 (55) 100 10/25/18 06:30 105 40 97/66 (76) 97 10/25/18 06:00 104 25 103/73 (83) 97 10/25/18 05:30 82 27 95/48 (64) 91 10/25/18 05:23 80 29 40 10/25/18 05:15 79 27 91/49 (63) 100 10/25/18 05:00 82 19 92/48 (63) 100 10/25/18 04:36 81 28 90/40 (57) 100 10/25/18 04:00 98.0 83 7 89/44 (59) 100 10/25/18 04:00 79 10/25/18 04:00 Mechanical Ventilator 10/25/18 04:00 40 10/25/18 03:30 81 26 91/43 (59) 100 10/25/18 03:23 85 27 40 10/25/18 03:00 91 29 100/52 (68) 100 10/25/18 02:30 84 29 91/71 (78) 87 10/25/18 02:00 83 35 97/46 (63) 100 10/25/18 01:30 83 31 93/43 (60) 100 10/25/18 01:28 84 29 40 10/25/18 01:00 81 18 73/41 (52) 100 10/25/18 00:30 84 35 94/56 (69) 100 10/25/18 00:00 Mechanical Ventilator 10/25/18 00:00 40 10/25/18 00:00 98.2 84 31 98/49 (65) 100 10/24/18 23:30 87 35 101/60 (74) 100 10/24/18 22:36 81 30 40 10/24/18 22:30 85 31 100/60 (73) 100 10/24/18 22:00 84 27 103/48 (66) 100 10/24/18 21:30 84 31 104/52 (69) 100 10/24/18 21:00 85 33 40 10/24/18 21:00 85 27 100/50 (67) 100 10/24/18 20:30 87 29 100/53 (69) 100 10/24/18 20:00 97.9 88 29 102/56 (71) 100 10/24/18 20:00 40 10/24/18 20:00 Mechanical Ventilator 10/24/18 20:00 87 10/24/18 19:30 86 38 105/45 (65) 100 10/24/18 19:21 86 30 40 10/24/18 19:00 89 28 110/51 (70) 100 10/24/18 18:30 90 14 99/82 (88) 100 10/24/18 18:00 89 17 92/56 (68) 100 10/24/18 17:30 89 17 97/52 (67) 100 10/24/18 17:00 89 26 95/52 (66) 100 10/24/18 16:55 98 35 40 10/24/18 16:30 89 29 103/45 (64) 100 10/24/18 16:00 40 10/24/18 16:00 91 24 103/50 (67) 100 10/24/18 16:00 Mechanical Ventilator 10/24/18 15:30 89 10/24/18 15:30 89 29 114/61 (78) 100 10/24/18 15:00 92 33 114/51 (72) 100 10/24/18 14:47 114/51 10/24/18 14:40 90 33 40 10/24/18 14:30 84 28 114/61 (78) 100 10/24/18 14:00 91 31 105/48 (67) 100 10/24/18 13:30 91 32 110/49 (69) 100 10/24/18 13:00 92 28 106/56 (73) 99 10/24/18 12:45 110/49 10/24/18 12:40 89 29 40 10/24/18 12:30 92 26 116/50 (72) 100 10/24/18 12:00 Mechanical Ventilator 10/24/18 12:00 99 10/24/18 12:00 98.0 92 26 117/53 (74) 100 10/24/18 12:00 40 10/24/18 11:40 114/37 10/24/18 11:30 94 29 117/54 (75) 100 10/24/18 11:00 92 29 113/65 (81) 100 10/24/18 10:40 88 29 40 10/24/18 10:30 90 27 109/52 (71) 100 10/24/18 10:00 91 16 108/51 (70) 100 10/24/18 09:30 91 20 110/46 (67) 100 10/24/18 09:00 90 16 105/51 (69) 100 10/24/18 08:36 92 30 40 10/24/18 08:30 91 24 94/47 (63) 100 Intake and Output 10/24/18 10/25/18 19:00 07:00 Intake Total 1789.554 ml 862.95 ml Output Total 75 ml 0 ml Balance 1714.554 ml 862.95 ml Free Water 180 ml IV Total 1069.554 ml 382.95 ml Tube Feeding 480 ml 480 ml Other 60 ml Output Urine Total 0 ml 0 ml Stool Total 75 ml Laboratory Tests 10/24/18 14:30: Heparin-PF4 Antibody Screen [Pending] 10/25/18 04:00: Reticulocyte Count [Pending] 10/25/18 04:30: Heparin-PF4 Antibody Screen [Pending], White Blood Count 19.5H, Red Blood Count 3.21L, Hemoglobin 8.9L, Hematocrit 27.1L, Mean Corpuscular Volume 84, Mean Corpuscular Hemoglobin 27.8, Mean Corpuscular Hemoglobin Concent 33.0, Red Cell Distribution Width 21.9H, Platelet Count 64L, Mean Platelet Volume 10.4H, Neutrophils (%) (Auto) , Lymphocytes (%) (Auto) , Monocytes (%) (Auto) , Eosinophils (%) (Auto) , Basophils (%) (Auto) , Neutrophils % (Manual) [Pending] , Lymphocytes % (Manual) [Pending], Platelet Estimate [Pending], Platelet Morphology [Pending], Haptoglobin [Pending], Fibrinogen 222, Sodium Level 119*L , Potassium Level 3.6, Chloride Level 84L, Carbon Dioxide Level 17L, Anion Gap 18H, Blood Urea Nitrogen 86H, Creatinine 5.3H, Estimat Glomerular Filtration Rate , Glucose Level 198H, Calcium Level 6.7L, Iron Level 25L, Total Iron Binding Capacity 133L, Percent Iron Saturation 19, Unsaturated Iron Binding 108L , Ferritin 994H, Total Bilirubin 5.5H, Direct Bilirubin 4.5H, Aspartate Amino Transf (AST/SGOT) 231H, Alanine Aminotransferase (ALT/SGPT) 299H, Alkaline Phosphatase 247H, Lactate Dehydrogenase 598H, Total Protein 5.1L, Albumin 1.8L, Globulin 3.3, Albumin/Globulin Ratio 0.5L, Amylase Level 143H, Lipase 717H, Vitamin B12 Level > 2000H, Thyroid Stimulating Hormone (TSH) 0.497, Random Vancomycin Level 16.6, HIV (1&2) Antibody Rapid [Pending] 10/25/18 05:00: Stool Occult Blood [Pending] Height (Feet): 5 Height (Inches): 2.00 Weight (Pounds): 148 General Appearance: other - intubated EENT: other - ETT Neck: normal alignment Cardiovascular: normal rate Respiratory/Chest: decreased breath sounds Abdomen: normal bowel sounds Objective Current Medications Medications (Trade) Dose Ordered Sig/Ashely Route PRN Reason Start Time Stop Time Status Last Admin Dose Admin Acetaminophen (Tylenol) 650 mg Q6H PRN ORAL Mild Pain/Temp > 100.5 10/18/18 16:30 11/08/18 04:23 Albumin Human 100 ml @ 200 mls/hr PRN PRN IV sbp<90 during hd 10/25/18 18:00 10/25/18 23:59 Aspirin (Ecotrin) 81 mg DAILY ORAL 10/19/18 09:00 11/09/18 08:59 10/24/18 09:54 Atorvastatin Calcium (Lipitor) 40 mg BEDTIME ORAL 10/18/18 21:00 11/09/18 20:59 10/24/18 20:33 Calcium Carbonate (Tums) 500 mg BID GT 10/20/18 18:00 11/09/18 08:59 10/24/18 18:29 Chlorhexidine Gluconate (Anai-Hex 2%) 1 applic DAILY@2000 TOPIC 10/18/18 20:00 11/12/18 19:59 10/24/18 20:00 Dextrose (Dextrose 50%) 25 ml Q30M PRN IV Hypoglycemia 10/23/18 08:15 11/22/18 08:14 Dextrose (Dextrose 50%) 50 ml Q30M PRN IV Hypoglycemia 10/23/18 08:15 11/22/18 08:14 Dobutamine HCl 250 ml @ 10.05 mls/ hr Q24H IV 10/19/18 11:40 11/18/18 11:39 10/22/18 12:43 Dopamine HCl/ Dextrose 250 ml @ 0 mls/hr Q24H IV 10/19/18 12:45 11/18/18 12:44 10/20/18 17:43 Fluconazole/ Sodium Chloride 100 ml @ 100 mls/hr Q24H IV 10/22/18 20:00 10/29/18 19:59 10/24/18 20:00 Haloperidol Lactate (Haldol) 5 mg Q6H PRN IM Agitation 10/18/18 17:00 11/17/18 16:59 Heparin Sodium (Porcine) (Heparin Sod 1000 units/ml 10ml) 500 unit ONCE PRN IV dialysis 10/25/18 18:00 10/25/18 23:59 Insulin Aspart (NovoLOG) EVERY 4 HOURS SUBQ 10/23/18 09:00 11/22/18 08:59 10/25/18 05:08 Latanoprost (Xalatan) 1 drop BEDTIME BOTH EYES 10/18/18 21:00 11/10/18 20:59 10/24/18 20:33 Meropenem 500 mg/ Sodium Chloride 50 ml @ 100 mls/hr Q24HRS IVPB 10/25/18 00:00 10/30/18 00:00 10/25/18 00:00 Norepinephrine Bitartrate 16 mg/ Dextrose 500 ml @ 0 mls/hr Q24H IV 10/20/18 18:00 11/19/18 17:59 10/24/18 14:47 Ondansetron HCl (Zofran) 4 mg Q8H PRN IVP Nausea & Vomiting 10/18/18 17:00 11/17/18 16:59 Pantoprazole (Protonix) 40 mg ACBREAKFAST ORAL 10/19/18 06:30 11/09/18 08:59 10/25/18 06:41 Promethazine HCl (Phenergan Plain) 6.25 mg Q6H PRN ORAL For Cough 10/18/18 16:45 11/10/18 04:32 Vancomycin HCl (Firvanq) 125 mg FOUR TIMES A DAY ORAL 10/22/18 21:00 10/29/18 20:59 10/24/18 20:33 Vancomycin HCl (Vanco rx to dose) 1 ea DAILY PRN MISC Per rx protocol 10/19/18 23:30 11/18/18 23:29 Vancomycin HCl 1 gm/Dextrose 275 ml @ 183.708 mls/hr ONCE IVPB 10/25/18 21:00 10/25/18 23:00 Vasopressin 100 units/Sodium Chloride 100 ml @ 2.4 mls/hr Q24H IV 10/22/18 15:00 11/21/18 14:59 10/24/18 20:00 Barry Schmitt MD Oct 25, 2018 08:12
[2018-10-25] MEDS: Tums 500mg GT SCH ×2 (08:45→17:54)
[2018-10-25] MEDS: Vancomycin oral 125mg/2.5ml ORAL SCH ×4 (08:45→21:13)
[2018-10-25] MEDS: Aspirin EC 81mg tab ORAL SCH (08:46)
[2018-10-25] MEDS: Norepinephrine Bitartrate 16 MG in D5W 500ml 484 ML IV SCH ×2 (08:55→23:00)
--- NOTE | 2018-10-25 09:00 | NUR ---
NURSE NOTES: Dr Ferreira here to see pt. Called Lab to follow up RFS report for flow cytometry. Lab is processing order. Will continue to monitor.
[2018-10-25] MEDS ORDERED: Vancomycin 1gm/D5W 275ml IVPB SCH ×4 (10:00→21:00)
--- NOTE | 2018-10-25 10:53 | NUR ---
NURSE NOTES: ingot stripper came to see pt. Dialysis to be done in afternoon. Will continue to monitor.
[2018-10-25] MEDS: DOBUTamine 250mg/250ml Premix 250 ML IV SCH (11:31)
--- NOTE | 2018-10-25 12:06 | Nephrology Progress Note ---
Assessment/Plan Problem List: (1) Acute kidney injury superimposed on CKD Assessment: no recovery (2) CHF (congestive heart failure) (3) NSTEMI (non-ST elevated myocardial infarction) (4) Hypotension (5) Pneumonia (6) Hypoglycemia (7) Respiratory failure, acute (8) Sepsis (9) Hyponatremia Assessment: worse Assessment POOR PROGNOSIS Plan HD today Discussed with RN continue pressors abxs per ID follow labs Vent support Subjective Subjective pt was seen in ICU more alert Objective Objective Last 24 Hour Vital Signs Date Time Temp Pulse Resp B/P (MAP) Pulse Ox O2 Delivery O2 Flow Rate FiO2 10/25/18 11:31 91/49 10/25/18 11:30 88 18 95/52 (66) 100 10/25/18 11:00 85 15 91/49 (63) 100 10/25/18 10:30 88 21 103/41 (61) 99 10/25/18 10:29 84 33 40 10/25/18 10:00 86 33 94/44 (61) 100 10/25/18 09:30 86 30 99/47 (64) 99 10/25/18 09:00 83 26 101/19 (46) 100 10/25/18 08:55 108/29 10/25/18 08:50 82 30 40 10/25/18 08:30 83 30 89/43 (58) 100 10/25/18 08:00 97.5 85 30 95/45 (62) 100 10/25/18 08:00 86 10/25/18 08:00 40 10/25/18 08:00 Mechanical Ventilator 10/25/18 07:30 86 35 91/47 (62) 100 10/25/18 07:28 82 29 40 10/25/18 07:00 85 25 108/29 (55) 100 10/25/18 06:30 105 40 97/66 (76) 97 10/25/18 06:00 104 25 103/73 (83) 97 10/25/18 05:30 82 27 95/48 (64) 91 10/25/18 05:23 80 29 40 10/25/18 05:15 79 27 91/49 (63) 100 10/25/18 05:00 82 19 92/48 (63) 100 10/25/18 04:36 81 28 90/40 (57) 100 10/25/18 04:00 98.0 83 7 89/44 (59) 100 10/25/18 04:00 79 10/25/18 04:00 Mechanical Ventilator 10/25/18 04:00 40 10/25/18 03:30 81 26 91/43 (59) 100 10/25/18 03:23 85 27 40 10/25/18 03:00 91 29 100/52 (68) 100 10/25/18 02:30 84 29 91/71 (78) 87 10/25/18 02:00 83 35 97/46 (63) 100 10/25/18 01:30 83 31 93/43 (60) 100 10/25/18 01:28 84 29 40 10/25/18 01:00 81 18 73/41 (52) 100 10/25/18 00:30 84 35 94/56 (69) 100 10/25/18 00:00 Mechanical Ventilator 10/25/18 00:00 40 10/25/18 00:00 98.2 84 31 98/49 (65) 100 10/24/18 23:30 87 35 101/60 (74) 100 10/24/18 22:36 81 30 40 10/24/18 22:30 85 31 100/60 (73) 100 10/24/18 22:00 84 27 103/48 (66) 100 10/24/18 21:30 84 31 104/52 (69) 100 10/24/18 21:00 85 33 40 10/24/18 21:00 85 27 100/50 (67) 100 10/24/18 20:30 87 29 100/53 (69) 100 10/24/18 20:00 97.9 88 29 102/56 (71) 100 10/24/18 20:00 40 10/24/18 20:00 Mechanical Ventilator 10/24/18 20:00 87 10/24/18 19:30 86 38 105/45 (65) 100 10/24/18 19:21 86 30 40 10/24/18 19:00 89 28 110/51 (70) 100 10/24/18 18:30 90 14 99/82 (88) 100 10/24/18 18:00 89 17 92/56 (68) 100 10/24/18 17:30 89 17 97/52 (67) 100 10/24/18 17:00 89 26 95/52 (66) 100 10/24/18 16:55 98 35 40 10/24/18 16:30 89 29 103/45 (64) 100 10/24/18 16:00 40 10/24/18 16:00 91 24 103/50 (67) 100 10/24/18 16:00 Mechanical Ventilator 10/24/18 15:30 89 10/24/18 15:30 89 29 114/61 (78) 100 10/24/18 15:00 92 33 114/51 (72) 100 10/24/18 14:47 114/51 10/24/18 14:40 90 33 40 10/24/18 14:30 84 28 114/61 (78) 100 10/24/18 14:00 91 31 105/48 (67) 100 10/24/18 13:30 91 32 110/49 (69) 100 10/24/18 13:00 92 28 106/56 (73) 99 10/24/18 12:45 110/49 10/24/18 12:40 89 29 40 10/24/18 12:30 92 26 116/50 (72) 100 Intake and Output 10/24/18 10/25/18 19:00 07:00 Intake Total 1789.554 ml 862.95 ml Output Total 75 ml 0 ml Balance 1714.554 ml 862.95 ml Free Water 180 ml IV Total 1069.554 ml 382.95 ml Tube Feeding 480 ml 480 ml Other 60 ml Output Urine Total 0 ml 0 ml Stool Total 75 ml Laboratory Tests 10/24/18 14:30: Heparin-PF4 Antibody Screen [Pending] 10/25/18 04:30: Heparin-PF4 Antibody Screen [Pending], White Blood Count 19.5H, Red Blood Count 3.21L, Hemoglobin 8.9L, Hematocrit 27.1L, Mean Corpuscular Volume 84, Mean Corpuscular Hemoglobin 27.8, Mean Corpuscular Hemoglobin Concent 33.0, Red Cell Distribution Width 21.9H, Platelet Count 64L, Mean Platelet Volume 10.4H, Neutrophils (%) (Auto) , Lymphocytes (%) (Auto) , Monocytes (%) (Auto) , Eosinophils (%) (Auto) , Basophils (%) (Auto) , Differential Total Cells Counted 100, Neutrophils % (Manual) 84H, Lymphocytes % (Manual) 4L, Monocytes % (Manual) 3, Eosinophils % (Manual) 1, Basophils % (Manual) 0, Band Neutrophils 8 , Nucleated Red Blood Cells 1, Other Cell Type See comments, Platelet Estimate DecreasedL, Platelet Morphology Normal, Polychromasia 2+, Hypochromasia 2+, Anisocytosis 2+, Reticulocyte Count 6.1H, Haptoglobin [Pending], Fibrinogen 222 , Sodium Level 119*L, Potassium Level 3.6, Chloride Level 84L, Carbon Dioxide Level 17L, Anion Gap 18H, Blood Urea Nitrogen 86H, Creatinine 5.3H, Estimat Glomerular Filtration Rate , Glucose Level 198H, Calcium Level 6.7L, Iron Level 25L, Total Iron Binding Capacity 133L, Percent Iron Saturation 19, Unsaturated Iron Binding 108L, Ferritin 994H, Total Bilirubin 5.5H, Direct Bilirubin 4.5H, Aspartate Amino Transf (AST/SGOT) 231H, Alanine Aminotransferase (ALT/SGPT) 299H , Alkaline Phosphatase 247H, Lactate Dehydrogenase 598H, Total Protein 5.1L, Albumin 1.8L, Globulin 3.3, Albumin/Globulin Ratio 0.5L, Amylase Level 143H, Lipase 717H, Vitamin B12 Level > 2000H, Thyroid Stimulating Hormone (TSH) 0.497 , Random Vancomycin Level 16.6, HIV (1&2) Antibody Rapid Negative 10/25/18 05:00: Stool Occult Blood Positive Height (Feet): 5 Height (Inches): 2.00 Weight (Pounds): 148 Cardiovascular: regular rhythm Respiratory/Chest: rhonchi - bilaterally Extremities: severe edema Mario Porter MD Oct 25, 2018 12:06
[2018-10-25] MEDS: DOPamine 400mg/250ml 250 ML IV SCH (12:45)
--- NOTE | 2018-10-25 13:01 | GI Progress Note ---
Assessment/Plan Problems: (1) Elevated LFTs ICD Codes: R94.5 - Abnormal results of liver function studies SNOMED: 371046544, 762194705 (2) Thrombocytopenia ICD Codes: D69.6 - Thrombocytopenia, unspecified SNOMED: 309941834 (3) Fatty liver ICD Codes: K76.0 - Fatty (change of) liver, not elsewhere classified SNOMED: 795264771 (4) Ventilator dependence ICD Codes: Z99.11 - Dependence on respirator [ventilator] status SNOMED: 196189105 (5) Altered mental status ICD Codes: R41.82 - Altered mental status, unspecified SNOMED: 667348740 Status: unchanged Status Narrative Discussed with Dr. Hawley. Assessment/Plan KUB and us reviewed no dilated CBD fu lftss no need for ERCP at this time OGTF fu stool for C.diff repeat labs supportive care rectal tube fu labs The patient was seen and examined at bedside and all new and available data was reviewed in the patients chart. I agree with the above findings, impression and plan. (Patient seen earlier today. Signature stamp does not reflect patient encounter time.). - Baldemar Hawley MD Subjective Subjective limited Objective Last 24 Hour Vital Signs Date Time Temp Pulse Resp B/P (MAP) Pulse Ox O2 Delivery O2 Flow Rate FiO2 10/25/18 12:45 91/49 10/25/18 12:44 89 36 40 10/25/18 12:30 87 30 100/49 (66) 99 10/25/18 12:00 40 10/25/18 12:00 Mechanical Ventilator 10/25/18 12:00 98.0 86 32 99/49 (66) 99 10/25/18 11:31 91/49 10/25/18 11:30 88 18 95/52 (66) 100 10/25/18 11:00 85 15 91/49 (63) 100 10/25/18 10:30 88 21 103/41 (61) 99 10/25/18 10:29 84 33 40 10/25/18 10:00 86 33 94/44 (61) 100 10/25/18 09:30 86 30 99/47 (64) 99 10/25/18 09:00 83 26 101/19 (46) 100 10/25/18 08:55 108/29 10/25/18 08:50 82 30 40 2/18/19 08:30 83 30 89/43 (58) 100 10/25/18 08:00 97.5 85 30 95/45 (62) 100 10/25/18 08:00 86 10/25/18 08:00 40 10/25/18 08:00 Mechanical Ventilator 10/25/18 07:30 86 35 91/47 (62) 100 10/25/18 07:28 82 29 40 10/25/18 07:00 85 25 108/29 (55) 100 10/25/18 06:30 105 40 97/66 (76) 97 10/25/18 06:00 104 25 103/73 (83) 97 10/25/18 05:30 82 27 95/48 (64) 91 10/25/18 05:23 80 29 40 10/25/18 05:15 79 27 91/49 (63) 100 10/25/18 05:00 82 19 92/48 (63) 100 10/25/18 04:36 81 28 90/40 (57) 100 10/25/18 04:00 98.0 83 7 89/44 (59) 100 10/25/18 04:00 79 10/25/18 04:00 Mechanical Ventilator 10/25/18 04:00 40 10/25/18 03:30 81 26 91/43 (59) 100 10/25/18 03:23 85 27 40 10/25/18 03:00 91 29 100/52 (68) 100 10/25/18 02:30 84 29 91/71 (78) 87 10/25/18 02:00 83 35 97/46 (63) 100 10/25/18 01:30 83 31 93/43 (60) 100 10/25/18 01:28 84 29 40 10/25/18 01:00 81 18 73/41 (52) 100 10/25/18 00:30 84 35 94/56 (69) 100 10/25/18 00:00 Mechanical Ventilator 10/25/18 00:00 40 10/25/18 00:00 98.2 84 31 98/49 (65) 100 10/24/18 23:30 87 35 101/60 (74) 100 10/24/18 22:36 81 30 40 10/24/18 22:30 85 31 100/60 (73) 100 10/24/18 22:00 84 27 103/48 (66) 100 10/24/18 21:30 84 31 104/52 (69) 100 10/24/18 21:00 85 33 40 10/24/18 21:00 85 27 100/50 (67) 100 10/24/18 20:30 87 29 100/53 (69) 100 10/24/18 20:00 97.9 88 29 102/56 (71) 100 10/24/18 20:00 40 10/24/18 20:00 Mechanical Ventilator 10/24/18 20:00 87 10/24/18 19:30 86 38 105/45 (65) 100 10/24/18 19:21 86 30 40 10/24/18 19:00 89 28 110/51 (70) 100 10/24/18 18:30 90 14 99/82 (88) 100 10/24/18 18:00 89 17 92/56 (68) 100 10/24/18 17:30 89 17 97/52 (67) 100 10/24/18 17:00 89 26 95/52 (66) 100 10/24/18 16:55 98 35 40 10/24/18 16:30 89 29 103/45 (64) 100 10/24/18 16:00 40 10/24/18 16:00 91 24 103/50 (67) 100 10/24/18 16:00 Mechanical Ventilator 10/24/18 15:30 89 10/24/18 15:30 89 29 114/61 (78) 100 10/24/18 15:00 92 33 114/51 (72) 100 10/24/18 14:47 114/51 10/24/18 14:40 90 33 40 10/24/18 14:30 84 28 114/61 (78) 100 10/24/18 14:00 91 31 105/48 (67) 100 10/24/18 13:30 91 32 110/49 (69) 100 Intake and Output 10/24/18 10/25/18 19:00 07:00 Intake Total 1789.554 ml 862.95 ml Output Total 75 ml 0 ml Balance 1714.554 ml 862.95 ml Free Water 180 ml IV Total 1069.554 ml 382.95 ml Tube Feeding 480 ml 480 ml Other 60 ml Output Urine Total 0 ml 0 ml Stool Total 75 ml Laboratory Tests Test 10/24/18 14:30 10/25/18 04:30 10/25/18 05:00 Heparin-PF4 Antibody Screen Pending Pending White Blood Count 19.5 K/UL (4.8-10.8) H Red Blood Count 3.21 M/UL (4.70-6.10) L Hemoglobin 8.9 G/DL (14.2-18.0) L Hematocrit 27.1 % (42.0-52.0) L Mean Corpuscular Volume 84 FL (80-99) Mean Corpuscular Hemoglobin 27.8 PG (27.0-31.0) Mean Corpuscular Hemoglobin Concent 33.0 G/DL (32.0-36.0) Red Cell Distribution Width 21.9 % (11.6-14.8) H Platelet Count 64 K/UL (150-450) L Mean Platelet Volume 10.4 FL (6.5-10.1) H Neutrophils (%) (Auto) % (45.0-75.0) Lymphocytes (%) (Auto) % (20.0-45.0) Monocytes (%) (Auto) % (1.0-10.0) Eosinophils (%) (Auto) % (0.0-3.0) Basophils (%) (Auto) % (0.0-2.0) Differential Total Cells Counted 100 Neutrophils % (Manual) 84 % (45-75) H Lymphocytes % (Manual) 4 % (20-45) L Monocytes % (Manual) 3 % (1-10) Eosinophils % (Manual) 1 % (0-3) Basophils % (Manual) 0 % (0-2) Band Neutrophils 8 % (0-8) Nucleated Red Blood Cells 1 /100 WBC Other Cell Type See comments Platelet Estimate Decreased L Platelet Morphology Normal Polychromasia 2+ Hypochromasia 2+ Anisocytosis 2+ Reticulocyte Count 6.1 % (0.0-2.0) H Haptoglobin Pending Fibrinogen 222 mg/dL (200-400) Sodium Level 119 MMOL/L (136-145) *L Potassium Level 3.6 MMOL/L (3.5-5.1) Chloride Level 84 MMOL/L (98-107) L Carbon Dioxide Level 17 MMOL/L (21-32) L Anion Gap 18 mmol/L (5-15) H Blood Urea Nitrogen 86 mg/dL (7-18) H Creatinine 5.3 MG/DL (0.55-1.30) H Estimat Glomerular Filtration Rate mL/min (>60) Glucose Level 198 MG/DL (74-106) H Calcium Level 6.7 MG/DL (8.5-10.1) L Iron Level 25 ug/dL (50-175) L Total Iron Binding Capacity 133 ug/dL (250-450) L Percent Iron Saturation 19 % (15-50) Unsaturated Iron Binding 108 ug/dL (112-346) L Ferritin 994 NG/ML (8-388) H Total Bilirubin 5.5 MG/DL (0.2-1.0) H Direct Bilirubin 4.5 MG/DL (0.0-0.3) H Aspartate Amino Transf (AST/SGOT) 231 U/L (15-37) H Alanine Aminotransferase (ALT/SGPT) 299 U/L (12-78) H Alkaline Phosphatase 247 U/L (46-116) H Lactate Dehydrogenase 598 U/L (81-234) H Total Protein 5.1 G/DL (6.4-8.2) L Albumin 1.8 G/DL (3.4-5.0) L Globulin 3.3 g/dL Albumin/Globulin Ratio 0.5 (1.0-2.7) L Amylase Level 143 U/L (25-115) H Lipase 717 U/L (73-393) H Vitamin B12 Level > 2000 PG/ML (193-986) H Thyroid Stimulating Hormone (TSH) 0.497 uiU/mL (0.358-3.740) Random Vancomycin Level 16.6 ug/mL HIV (1&2) Antibody Rapid Negative (NEGATIVE) Stool Occult Blood Positive (NEGATIVE) Height (Feet): 5 Height (Inches): 2.00 Weight (Pounds): 148 General Appearance: WD/WN, no apparent distress, alert Cardiovascular: normal rate Respiratory/Chest: normal breath sounds, no respiratory distress, other - intubated Abdominal Exam: normal bowel sounds, non tender, soft, other - OGT Extremities: non-tender Vijay Pena NP Oct 25, 2018 13:01
--- NOTE | 2018-10-25 13:34 | NUR ---
NURSE NOTES: Turned and repositioned pt. Oral care done. Will continue to monitor.
--- NOTE | 2018-10-25 14:32 | NUR ---
NURSE NOTES: Dialysis nurse starting dialysis. Levophed drip increased to 20 mcg/hr, SBP 99. Will continue to monitor.
--- NOTE | 2018-10-25 14:45 | Pulmonolgy Critical Care Note ---
Critical Care - Asmt/Plan Problems: (1) Respiratory failure, acute (2) Ventilator dependence (3) CHF (congestive heart failure) (4) CAD (coronary artery disease) (5) NSTEMI (non-ST elevated myocardial infarction) (6) Respiratory acidosis (7) Hemoptysis (8) Hypoglycemia (9) Pneumonia (10) Hypotension (11) Elevated d-dimer (12) Acute kidney injury superimposed on CKD Assessment & Plan: S/P initiation of HD (13) Hyponatremia (14) Sepsis Respiratory: monitor respiratory rate, adjust FIO2, CXR, ABG, weaning trial Cardiac: continue pressors - Titrate to keep MAP > 60 Renal: keep IV fluid, other - HD per renal with UF as able, ? 3% - defer to renal Infectious Disease: continue antibiotics - Flucon, Duong and Vanco per ID Endocrine: other - F/U Dr. Oskar givens Prophylaxis: Protonix, SCDs, other - FC Disposition: keep in ICU Time Spent (Minutes): 40 Notes Reviewed: development rep, cardio, renal, ID, other - ENDO Discussed with: nurses, consultants Critical Care - Objective Last 24 Hour Vital Signs Date Time Temp Pulse Resp B/P (MAP) Pulse Ox O2 Delivery O2 Flow Rate FiO2 10/25/18 14:31 86 30 40 10/25/18 14:30 86 29 98/51 (67) 100 10/25/18 14:00 86 30 91/49 (63) 100 10/25/18 13:30 85 31 98/64 (75) 100 10/25/18 13:00 86 32 105/45 (65) 99 10/25/18 12:45 91/49 10/25/18 12:44 89 36 40 10/25/18 12:30 87 30 100/49 (66) 99 10/25/18 12:00 40 10/25/18 12:00 Mechanical Ventilator 10/25/18 12:00 98.0 86 32 99/49 (66) 99 10/25/18 12:00 89 10/25/18 11:31 91/49 10/25/18 11:30 88 18 95/52 (66) 100 10/25/18 11:00 85 15 91/49 (63) 100 10/25/18 10:30 88 21 103/41 (61) 99 2/18/19 10:29 84 33 40 10/25/18 10:00 86 33 94/44 (61) 100 10/25/18 09:30 86 30 99/47 (64) 99 10/25/18 09:00 83 26 101/19 (46) 100 10/25/18 08:55 108/29 10/25/18 08:50 82 30 40 10/25/18 08:30 83 30 89/43 (58) 100 10/25/18 08:00 97.5 85 30 95/45 (62) 100 10/25/18 08:00 86 10/25/18 08:00 40 10/25/18 08:00 Mechanical Ventilator 10/25/18 07:30 86 35 91/47 (62) 100 10/25/18 07:28 82 29 40 10/25/18 07:00 85 25 108/29 (55) 100 10/25/18 06:30 105 40 97/66 (76) 97 10/25/18 06:00 104 25 103/73 (83) 97 10/25/18 05:30 82 27 95/48 (64) 91 10/25/18 05:23 80 29 40 10/25/18 05:15 79 27 91/49 (63) 100 10/25/18 05:00 82 19 92/48 (63) 100 10/25/18 04:36 81 28 90/40 (57) 100 10/25/18 04:00 98.0 83 7 89/44 (59) 100 10/25/18 04:00 79 10/25/18 04:00 Mechanical Ventilator 10/25/18 04:00 40 10/25/18 03:30 81 26 91/43 (59) 100 10/25/18 03:23 85 27 40 10/25/18 03:00 91 29 100/52 (68) 100 10/25/18 02:30 84 29 91/71 (78) 87 10/25/18 02:00 83 35 97/46 (63) 100 10/25/18 01:30 83 31 93/43 (60) 100 10/25/18 01:28 84 29 40 10/25/18 01:00 81 18 73/41 (52) 100 10/25/18 00:30 84 35 94/56 (69) 100 10/25/18 00:00 Mechanical Ventilator 10/25/18 00:00 40 10/25/18 00:00 98.2 84 31 98/49 (65) 100 10/24/18 23:30 87 35 101/60 (74) 100 10/24/18 22:36 81 30 40 10/24/18 22:30 85 31 100/60 (73) 100 10/24/18 22:00 84 27 103/48 (66) 100 10/24/18 21:30 84 31 104/52 (69) 100 10/24/18 21:00 85 33 40 10/24/18 21:00 85 27 100/50 (67) 100 10/24/18 20:30 87 29 100/53 (69) 100 10/24/18 20:00 97.9 88 29 102/56 (71) 100 10/24/18 20:00 40 10/24/18 20:00 Mechanical Ventilator 10/24/18 20:00 87 10/24/18 19:30 86 38 105/45 (65) 100 10/24/18 19:21 86 30 40 10/24/18 19:00 89 28 110/51 (70) 100 10/24/18 18:30 90 14 99/82 (88) 100 10/24/18 18:00 89 17 92/56 (68) 100 10/24/18 17:30 89 17 97/52 (67) 100 10/24/18 17:00 89 26 95/52 (66) 100 10/24/18 16:55 98 35 40 10/24/18 16:30 89 29 103/45 (64) 100 10/24/18 16:00 40 10/24/18 16:00 91 24 103/50 (67) 100 10/24/18 16:00 Mechanical Ventilator 10/24/18 15:30 89 10/24/18 15:30 89 29 114/61 (78) 100 10/24/18 15:00 92 33 114/51 (72) 100 10/24/18 14:47 114/51 10/24/18 14:40 90 33 40 Status: awake Condition: other - intubated HEENT: atraumatic Lungs: rales Heart: HR/BP unstable Abdomen: soft, non-tender, active bowel sounds Extremities: edema - 1+ Micro: Microbiology Date/Time Source Procedure Growth Status 10/24/18 01:35 Stool Clostridium difficile Toxin Assay - Final Complete Accucheck: 160 Blood Sugars: BS controlled Critical Care - Subjective ROS Limited/Unobtainable: Yes ICU Day: 8 Intubation Day: 7 Interval Events: Off Dobut, on NE and Vaso, Na 119 Awake Condition: critical IV Access: PICC, central - R IJ cem EKG Rhythm: Sinus Rhythm FI02: 40 Vent Support Breath Rate: 20 Vent Support Mode: AC Vent Tidal Volume: 500 Sputum Amount: Scant PEEP: 5.0 PIP: 46 Secretions: None Fluids: SLIV Drips: NE 20 Vaso 0.04 Tube Feeding Amount: 40 I&O: Intake and Output 10/24/18 10/25/18 18:59 06:59 Intake Total 1838.860 ml 899.10 ml Output Total 0 ml 75 ml Balance 1838.860 ml 824.10 ml Free Water 180 ml IV Total 1118.860 ml 419.10 ml Tube Feeding 480 ml 480 ml Other 60 ml Output Urine Total 0 ml 0 ml Stool Total 75 ml Subjective: ZACHARY ET-Tube: 7.5 ET Position: 23 Labs: Laboratory Tests Test 10/25/18 04:30 10/25/18 05:00 White Blood Count 19.5 K/UL (4.8-10.8) H Red Blood Count 3.21 M/UL (4.70-6.10) L Hemoglobin 8.9 G/DL (14.2-18.0) L Hematocrit 27.1 % (42.0-52.0) L Mean Corpuscular Volume 84 FL (80-99) Mean Corpuscular Hemoglobin 27.8 PG (27.0-31.0) Mean Corpuscular Hemoglobin Concent 33.0 G/DL (32.0-36.0) Red Cell Distribution Width 21.9 % (11.6-14.8) H Platelet Count 64 K/UL (150-450) L Mean Platelet Volume 10.4 FL (6.5-10.1) H Neutrophils (%) (Auto) % (45.0-75.0) Lymphocytes (%) (Auto) % (20.0-45.0) Monocytes (%) (Auto) % (1.0-10.0) Eosinophils (%) (Auto) % (0.0-3.0) Basophils (%) (Auto) % (0.0-2.0) Differential Total Cells Counted 100 Neutrophils % (Manual) 84 % (45-75) H Lymphocytes % (Manual) 4 % (20-45) L Monocytes % (Manual) 3 % (1-10) Eosinophils % (Manual) 1 % (0-3) Basophils % (Manual) 0 % (0-2) Band Neutrophils 8 % (0-8) Nucleated Red Blood Cells 1 /100 WBC Other Cell Type See comments Platelet Estimate Decreased L Platelet Morphology Normal Polychromasia 2+ Hypochromasia 2+ Anisocytosis 2+ Reticulocyte Count 6.1 % (0.0-2.0) H Haptoglobin Pending Fibrinogen 222 mg/dL (200-400) Sodium Level 119 MMOL/L (136-145) *L Potassium Level 3.6 MMOL/L (3.5-5.1) Chloride Level 84 MMOL/L (98-107) L Carbon Dioxide Level 17 MMOL/L (21-32) L Anion Gap 18 mmol/L (5-15) H Blood Urea Nitrogen 86 mg/dL (7-18) H Creatinine 5.3 MG/DL (0.55-1.30) H Estimat Glomerular Filtration Rate mL/min (>60) Glucose Level 198 MG/DL (74-106) H Calcium Level 6.7 MG/DL (8.5-10.1) L Iron Level 25 ug/dL (50-175) L Total Iron Binding Capacity 133 ug/dL (250-450) L Percent Iron Saturation 19 % (15-50) Unsaturated Iron Binding 108 ug/dL (112-346) L Ferritin 994 NG/ML (8-388) H Total Bilirubin 5.5 MG/DL (0.2-1.0) H Direct Bilirubin 4.5 MG/DL (0.0-0.3) H Aspartate Amino Transf (AST/SGOT) 231 U/L (15-37) H Alanine Aminotransferase (ALT/SGPT) 299 U/L (12-78) H Alkaline Phosphatase 247 U/L (46-116) H Lactate Dehydrogenase 598 U/L (81-234) H Total Protein 5.1 G/DL (6.4-8.2) L Albumin 1.8 G/DL (3.4-5.0) L Globulin 3.3 g/dL Albumin/Globulin Ratio 0.5 (1.0-2.7) L Amylase Level 143 U/L (25-115) H Lipase 717 U/L (73-393) H Vitamin B12 Level > 2000 PG/ML (193-986) H Thyroid Stimulating Hormone (TSH) 0.497 uiU/mL (0.358-3.740) Random Vancomycin Level 16.6 ug/mL Heparin-PF4 Antibody Screen Pending HIV (1&2) Antibody Rapid Negative (NEGATIVE) Stool Occult Blood Positive (NEGATIVE) Chidi Bourne MD Oct 25, 2018 14:45
--- NOTE | 2018-10-25 15:06 | NUR ---
NURSE NOTES: Dr Bourne here to see pt. CXR and ABG ordered. Will continue to monitor.
[2018-10-25] MEDS: Vasopressin 100 UNITS in NS 95 ML IV SCH (15:13)
--- NOTE | 2018-10-25 16:39 | General Progress Note ---
Assessment/Plan Assessment/Plan ASSESSMENT/RECS: # Thrombocytopenia -- multiple etiologies possible, has been on heparin gtt which was discontinued on 10/24 --> HIT antibody has been ordered --> smear has been reviewed, no e/o schistocytes is noted --> duplex lower extremities ordered to r/o dvt, r/o hit --> will also obtain a hiv panel along with w/u for anemia --> obtain a flow cytometry to r/o leukemia/mds (has been ordered) results to appear under "pathology" # Leukocytosis likely related to underlying sepsis --> r/o other underlying cuases --> on abx, have ordered a flow cyotmry --> if stable, can consider a bone marrow biopsy given nucleated cells on the peripheral smear that are persistent # Respiratory failure on a cent --> as per pulm management # Hyponatremia on ivf as per nephro # Colonic distention, abnormal liver function tests. --> as per gi # ESRD on hd The timing of this note does not necessarily reflect the time of the patient was seen. Greatly appreciate consultation! Subjective ROS Limited/Unobtainable: Yes Constitutional: Denies: no symptoms, chills, diaphoresis, fever, malaise, weakness, other Allergies: Coded Allergies: PENICILLINS (Verified Allergy, Unknown, 10/09/18) Subjective 10/25: pt was seen in ICU , more alert today, no acute events reported. plt 64, wbc 19, flow cytometry ordered, off heparin gtt Objective Last 24 Hour Vital Signs Date Time Temp Pulse Resp B/P (MAP) Pulse Ox O2 Delivery O2 Flow Rate FiO2 10/25/18 16:30 93 32 105/36 (59) 97 10/25/18 16:00 Mechanical Ventilator 10/25/18 16:00 40 10/25/18 16:00 97.7 94 32 100/40 (60) 97 10/25/18 15:30 95 31 101/42 (61) 97 10/25/18 15:00 90 29 106/56 (73) 100 10/25/18 14:31 86 30 40 10/25/18 14:30 86 29 98/51 (67) 100 10/25/18 14:00 86 30 91/49 (63) 100 10/25/18 13:30 85 31 98/64 (75) 100 10/25/18 13:00 86 32 105/45 (65) 99 10/25/18 12:45 91/49 10/25/18 12:44 89 36 40 10/25/18 12:30 87 30 100/49 (66) 99 10/25/18 12:00 40 10/25/18 12:00 Mechanical Ventilator 10/25/18 12:00 98.0 86 32 99/49 (66) 99 10/25/18 12:00 89 10/25/18 11:31 91/49 10/25/18 11:30 88 18 95/52 (66) 100 10/25/18 11:00 85 15 91/49 (63) 100 10/25/18 10:30 88 21 103/41 (61) 99 10/25/18 10:29 84 33 40 10/25/18 10:00 86 33 94/44 (61) 100 10/25/18 09:30 86 30 99/47 (64) 99 10/25/18 09:00 83 26 101/19 (46) 100 10/25/18 08:55 108/29 10/25/18 08:50 82 30 40 10/25/18 08:30 83 30 89/43 (58) 100 10/25/18 08:00 97.5 85 30 95/45 (62) 100 10/25/18 08:00 86 10/25/18 08:00 40 10/25/18 08:00 Mechanical Ventilator 10/25/18 07:30 86 35 91/47 (62) 100 10/25/18 07:28 82 29 40 10/25/18 07:00 85 25 108/29 (55) 100 10/25/18 06:30 105 40 97/66 (76) 97 10/25/18 06:00 104 25 103/73 (83) 97 10/25/18 05:30 82 27 95/48 (64) 91 10/25/18 05:23 80 29 40 10/25/18 05:15 79 27 91/49 (63) 100 10/25/18 05:00 82 19 92/48 (63) 100 10/25/18 04:36 81 28 90/40 (57) 100 10/25/18 04:00 98.0 83 7 89/44 (59) 100 10/25/18 04:00 79 10/25/18 04:00 Mechanical Ventilator 10/25/18 04:00 40 10/25/18 03:30 81 26 91/43 (59) 100 10/25/18 03:23 85 27 40 10/25/18 03:00 91 29 100/52 (68) 100 10/25/18 02:30 84 29 91/71 (78) 87 10/25/18 02:00 83 35 97/46 (63) 100 10/25/18 01:30 83 31 93/43 (60) 100 10/25/18 01:28 84 29 40 10/25/18 01:00 81 18 73/41 (52) 100 10/25/18 00:30 84 35 94/56 (69) 100 10/25/18 00:00 Mechanical Ventilator 10/25/18 00:00 40 10/25/18 00:00 98.2 84 31 98/49 (65) 100 10/24/18 23:30 87 35 101/60 (74) 100 10/24/18 22:36 81 30 40 10/24/18 22:30 85 31 100/60 (73) 100 10/24/18 22:00 84 27 103/48 (66) 100 10/24/18 21:30 84 31 104/52 (69) 100 10/24/18 21:00 85 33 40 10/24/18 21:00 85 27 100/50 (67) 100 10/24/18 20:30 87 29 100/53 (69) 100 10/24/18 20:00 97.9 88 29 102/56 (71) 100 10/24/18 20:00 40 10/24/18 20:00 Mechanical Ventilator 10/24/18 20:00 87 10/24/18 19:30 86 38 105/45 (65) 100 10/24/18 19:21 86 30 40 10/24/18 19:00 89 28 110/51 (70) 100 10/24/18 18:30 90 14 99/82 (88) 100 10/24/18 18:00 89 17 92/56 (68) 100 10/24/18 17:30 89 17 97/52 (67) 100 10/24/18 17:00 89 26 95/52 (66) 100 10/24/18 16:55 98 35 40 Intake and Output 10/24/18 10/25/18 18:59 06:59 Intake Total 1838.860 ml 899.10 ml Output Total 0 ml 75 ml Balance 1838.860 ml 824.10 ml Free Water 180 ml IV Total 1118.860 ml 419.10 ml Tube Feeding 480 ml 480 ml Other 60 ml Output Urine Total 0 ml 0 ml Stool Total 75 ml Laboratory Tests 10/25/18 04:30: White Blood Count 19.5H, Red Blood Count 3.21L, Hemoglobin 8.9L, Hematocrit 27.1L, Mean Corpuscular Volume 84, Mean Corpuscular Hemoglobin 27.8, Mean Corpuscular Hemoglobin Concent 33.0, Red Cell Distribution Width 21.9H, Platelet Count 64L, Mean Platelet Volume 10.4H, Neutrophils (%) (Auto) , Lymphocytes (%) (Auto) , Monocytes (%) (Auto) , Eosinophils (%) (Auto) , Basophils (%) (Auto) , Differential Total Cells Counted 100, Neutrophils % ( Manual) 84H, Lymphocytes % (Manual) 4L, Monocytes % (Manual) 3, Eosinophils % ( Manual) 1, Basophils % (Manual) 0, Band Neutrophils 8, Nucleated Red Blood Cells 1, Other Cell Type See comments, Platelet Estimate DecreasedL, Platelet Morphology Normal, Polychromasia 2+, Hypochromasia 2+, Anisocytosis 2+, Reticulocyte Count 6.1H, Haptoglobin [Pending], Fibrinogen 222, Sodium Level 119 *L, Potassium Level 3.6, Chloride Level 84L, Carbon Dioxide Level 17L, Anion Gap 18H, Blood Urea Nitrogen 86H, Creatinine 5.3H, Estimat Glomerular Filtration Rate , Glucose Level 198H, Calcium Level 6.7L, Iron Level 25L, Total Iron Binding Capacity 133L, Percent Iron Saturation 19, Unsaturated Iron Binding 108L, Ferritin 994H, Total Bilirubin 5.5H, Direct Bilirubin 4.5H, Aspartate Amino Transf (AST/SGOT) 231H, Alanine Aminotransferase (ALT/SGPT) 299H , Alkaline Phosphatase 247H, Lactate Dehydrogenase 598H, Total Protein 5.1L, Albumin 1.8L, Globulin 3.3, Albumin/Globulin Ratio 0.5L, Amylase Level 143H, Lipase 717H, Vitamin B12 Level > 2000H, Thyroid Stimulating Hormone (TSH) 0.497 , Random Vancomycin Level 16.6, Heparin-PF4 Antibody Screen [Pending], HIV (1&2 ) Antibody Rapid Negative 10/25/18 05:00: Stool Occult Blood Positive Height (Feet): 5 Height (Inches): 2.00 Weight (Pounds): 148 Objective PHYSICAL EXAMINATION: VITAL SIGNS: Temperature is 98.7, pulse is 96, respirations 23, blood pressure 96/48. HEENT: Normocephalic and atraumatic. Mild scleral icterus. NECK: Supple. On vent CARDIOVASCULAR: Tachycardic. Regular rr, Plus S1, S2. There is a soft murmur at the left sternal border. LUNGS: Decreased breath sounds bilaterally diffusely on supine exam. ABDOMEN: Distended, tympanic to percussion. Hypoactive bowel sounds. EXTREMITIES: No cyanosis, no clubbing, no edema. NEUROLOGIC: Unable to obtain given the patient is on vent. Rah Ferreira MD Oct 25, 2018 16:39
[2018-10-25] MEDS ORDERED: Heparin Sod 1000 units/ml 10ml IV PRN (18:00)
--- NOTE | 2018-10-25 18:09 | NUR ---
NURSE NOTES: Discussed with Dr Steffen ALCALA results. No new orders. Will continue to monitor.
--- NOTE | 2018-10-25 19:06 | NUR ---
HAND-OFF: Report given to Jimmie OSMAN.
--- NOTE | 2018-10-25 19:45 | NUR ---
CASE MANAGEMENT: REVIEW SI: CHF . NSTEMI . PNA . AMS T 97.7 HR 94 RR 32 BP 100/40 SAT 97% MECH VENT FIO2 40 WBC 19.5 H/H 8.9/27.1 NA 119 BUN 86 CR 5.3 IS: DOBUTAMINE GTT DOPAMINE GTT LEVOPHED GTT MEROPENEM IV Q24HR ICU STATUS DCP: PATIENT IS FROM HOME
[2018-10-25] MEDS: Dyna-Hex 2% Top Sol 2oz TOPIC SCH (20:00)
--- NOTE | 2018-10-25 20:00 | NUR ---
NURSE NOTES: Received report from Raul OSMAN. Pt obtunded, does not follow commands. Pt on equipment monitor phototypesetting, SR. Pt orally intubated ETT 7.5, 23 cm lip line, AC 20, TV 500, 40% FIO2, PEEP 5. OGT with nepro at 40 cc/hr. Rectal tube intact draining brown liquid stool to gravity.l. KIM PICC intact and RIJ cem intact. Safety measures in place with bed locked and in lowest position, side rails x3 up and bed alarm on. Will continue to monitor and continue plan of care.
--- NOTE | 2018-10-25 20:07 | Cardiology Progress Note ---
Assessment/Plan Assessment/Plan cardiology critical care 1. Hypoglycemia secondary to medication. 2. Diabetes mellitus previously. 3. Acute Respiratory inusf / hemoptysis 4. History of ischemic cardiomyopathy with ejection fraction of 40%. 5. Mitral regurgitation, kzoljclx-au-pznael degree on recent echocardiogram last week. 6. Moderate tricuspid regurgitation. 7. Mild pulmonary hypertension with 43 through 48. 8. Pleural effusions history. 9. Abnormal gastric endoscopy, suspicious for malignancy with submucosal resection. 10. Aortic stenosis. 11. Hyperlipidemia. 12. Prostate cancer. 13. Abnormal facial asymmetry. 14. CAD 15. AMS 16. NSTEMI demand related vs PE related doubt acs 17. acute on chronic renal failure 18. metabolic acidosis 19. hemiparesis 20. hypotension / septic shock 21. Thrombocytopenia 22. abn lft probable shock liver ? 23. profound hyponatremia 24. hyper bilirubinemia 25. Thrombocytopenia echo reviewed has infor post swma and mod mr and ef probley 35-40% , rv is not enlarge ivc ws enlarged at the time was done v/q was ordered but not done heaprin dcd due to thrombocytopenia HIT ordred dic panel ordered seen my heme ct head done was not very remarkable need mri when feasible is mroe responsive and follows some commands will try to see if can taper levophed slowly d/w rn neuro / gi/ renal / ID / heme input appreciated is on abx adjusted by id bp is littel better on pressor lft down trending but bili remaining elelvated d/w family 10/22/2018 i have made son aware of the poor status we discussed resuscitative effort they wish him to be full code due to islam reason if bp allow more dialysis and uf tomorrow venous duplex ordered to make suer not white clot syndrome remains critical but improved Subjective ROS Limited/Unobtainable: Yes Subjective intubated on 2 pressor , but now follows commnads Objective Last 24 Hour Vital Signs Date Time Temp Pulse Resp B/P (MAP) Pulse Ox O2 Delivery O2 Flow Rate FiO2 10/25/18 19:00 96 23 101/41 (61) 100 10/25/18 18:59 90 27 40 10/25/18 18:30 108 22 111/42 (65) 10/25/18 18:00 108 23 115/51 (72) 98 10/25/18 17:30 104 27 118/45 (69) 97 10/25/18 17:00 102 29 97/53 (68) 98 18 16:52 91 24 40 10/25/18 16:30 93 32 105/36 (59) 97 10/25/18 16:00 Mechanical Ventilator 10/25/18 16:00 90 10/25/18 16:00 40 10/25/18 16:00 97.7 94 32 100/40 (60) 97 10/25/18 15:30 95 31 101/42 (61) 97 10/25/18 15:00 90 29 106/56 (73) 100 10/25/18 14:31 86 30 40 10/25/18 14:30 86 29 98/51 (67) 100 10/25/18 14:00 86 30 91/49 (63) 100 10/25/18 13:30 85 31 98/64 (75) 100 10/25/18 13:00 86 32 105/45 (65) 99 10/25/18 12:45 91/49 10/25/18 12:44 89 36 40 10/25/18 12:30 87 30 100/49 (66) 99 10/25/18 12:00 40 10/25/18 12:00 Mechanical Ventilator 10/25/18 12:00 98.0 86 32 99/49 (66) 99 10/25/18 12:00 89 10/25/18 11:31 91/49 10/25/18 11:30 88 18 95/52 (66) 100 10/25/18 11:00 85 15 91/49 (63) 100 10/25/18 10:30 88 21 103/41 (61) 99 10/25/18 10:29 84 33 40 10/25/18 10:00 86 33 94/44 (61) 100 10/25/18 09:30 86 30 99/47 (64) 99 10/25/18 09:00 83 26 101/19 (46) 100 10/25/18 08:55 108/29 10/25/18 08:50 82 30 40 10/25/18 08:30 83 30 89/43 (58) 100 10/25/18 08:00 97.5 85 30 95/45 (62) 100 10/25/18 08:00 86 10/25/18 08:00 40 10/25/18 08:00 Mechanical Ventilator 10/25/18 07:30 86 35 91/47 (62) 100 10/25/18 07:28 82 29 40 10/25/18 07:00 85 25 108/29 (55) 100 10/25/18 06:30 105 40 97/66 (76) 97 10/25/18 06:00 104 25 103/73 (83) 97 10/25/18 05:30 82 27 95/48 (64) 91 10/25/18 05:23 80 29 40 10/25/18 05:15 79 27 91/49 (63) 100 10/25/18 05:00 82 19 92/48 (63) 100 10/25/18 04:36 81 28 90/40 (57) 100 10/25/18 04:00 98.0 83 7 89/44 (59) 100 10/25/18 04:00 79 10/25/18 04:00 Mechanical Ventilator 10/25/18 04:00 40 10/25/18 03:30 81 26 91/43 (59) 100 10/25/18 03:23 85 27 40 10/25/18 03:00 91 29 100/52 (68) 100 10/25/18 02:30 84 29 91/71 (78) 87 10/25/18 02:00 83 35 97/46 (63) 100 10/25/18 01:30 83 31 93/43 (60) 100 10/25/18 01:28 84 29 40 10/25/18 01:00 81 18 73/41 (52) 100 10/25/18 00:30 84 35 94/56 (69) 100 10/25/18 00:00 Mechanical Ventilator 10/25/18 00:00 40 10/25/18 00:00 98.2 84 31 98/49 (65) 100 10/24/18 23:30 87 35 101/60 (74) 100 10/24/18 22:36 81 30 40 10/24/18 22:30 85 31 100/60 (73) 100 10/24/18 22:00 84 27 103/48 (66) 100 10/24/18 21:30 84 31 104/52 (69) 100 10/24/18 21:00 85 33 40 10/24/18 21:00 85 27 100/50 (67) 100 10/24/18 20:30 87 29 100/53 (69) 100 General Appearance: no apparent distress, alert, on vent Neck: supple Cardiovascular: normal rate Respiratory/Chest: lungs clear Abdomen: normal bowel sounds, non tender, soft Extremities: severe edema Intake and Output 10/24/18 10/25/18 18:59 06:59 Intake Total 1838.860 ml 899.10 ml Output Total 0 ml 75 ml Balance 1838.860 ml 824.10 ml Free Water 180 ml IV Total 1118.860 ml 419.10 ml Tube Feeding 480 ml 480 ml Other 60 ml Output Urine Total 0 ml 0 ml Stool Total 75 ml Laboratory Tests Test 10/25/18 04:30 10/25/18 05:00 10/25/18 17:40 White Blood Count 19.5 K/UL (4.8-10.8) H Red Blood Count 3.21 M/UL (4.70-6.10) L Hemoglobin 8.9 G/DL (14.2-18.0) L Hematocrit 27.1 % (42.0-52.0) L Mean Corpuscular Volume 84 FL (80-99) Mean Corpuscular Hemoglobin 27.8 PG (27.0-31.0) Mean Corpuscular Hemoglobin Concent 33.0 G/DL (32.0-36.0) Red Cell Distribution Width 21.9 % (11.6-14.8) H Platelet Count 64 K/UL (150-450) L Mean Platelet Volume 10.4 FL (6.5-10.1) H Neutrophils (%) (Auto) % (45.0-75.0) Lymphocytes (%) (Auto) % (20.0-45.0) Monocytes (%) (Auto) % (1.0-10.0) Eosinophils (%) (Auto) % (0.0-3.0) Basophils (%) (Auto) % (0.0-2.0) Differential Total Cells Counted 100 Neutrophils % (Manual) 84 % (45-75) H Lymphocytes % (Manual) 4 % (20-45) L Monocytes % (Manual) 3 % (1-10) Eosinophils % (Manual) 1 % (0-3) Basophils % (Manual) 0 % (0-2) Band Neutrophils 8 % (0-8) Nucleated Red Blood Cells 1 /100 WBC Other Cell Type See comments Platelet Estimate Decreased L Platelet Morphology Normal Polychromasia 2+ Hypochromasia 2+ Anisocytosis 2+ Reticulocyte Count 6.1 % (0.0-2.0) H Haptoglobin Pending Fibrinogen 222 mg/dL (200-400) Sodium Level 119 MMOL/L (136-145) *L Potassium Level 3.6 MMOL/L (3.5-5.1) Chloride Level 84 MMOL/L (98-107) L Carbon Dioxide Level 17 MMOL/L (21-32) L Anion Gap 18 mmol/L (5-15) H Blood Urea Nitrogen 86 mg/dL (7-18) H Creatinine 5.3 MG/DL (0.55-1.30) H Estimat Glomerular Filtration Rate mL/min (>60) Glucose Level 198 MG/DL (74-106) H Calcium Level 6.7 MG/DL (8.5-10.1) L Iron Level 25 ug/dL (50-175) L Total Iron Binding Capacity 133 ug/dL (250-450) L Percent Iron Saturation 19 % (15-50) Unsaturated Iron Binding 108 ug/dL (112-346) L Ferritin 994 NG/ML (8-388) H Total Bilirubin 5.5 MG/DL (0.2-1.0) H Direct Bilirubin 4.5 MG/DL (0.0-0.3) H Aspartate Amino Transf (AST/SGOT) 231 U/L (15-37) H Alanine Aminotransferase (ALT/SGPT) 299 U/L (12-78) H Alkaline Phosphatase 247 U/L (46-116) H Lactate Dehydrogenase 598 U/L (81-234) H Total Protein 5.1 G/DL (6.4-8.2) L Albumin 1.8 G/DL (3.4-5.0) L Globulin 3.3 g/dL Albumin/Globulin Ratio 0.5 (1.0-2.7) L Amylase Level 143 U/L (25-115) H Lipase 717 U/L (73-393) H Vitamin B12 Level > 2000 PG/ML (193-986) H Thyroid Stimulating Hormone (TSH) 0.497 uiU/mL (0.358-3.740) Random Vancomycin Level 16.6 ug/mL Heparin-PF4 Antibody Screen Pending HIV (1&2) Antibody Rapid Negative (NEGATIVE) Stool Occult Blood Positive (NEGATIVE) Arterial Blood pH 7.498 (7.350-7.450) Arterial Blood Partial Pressure CO2 25.1 mmHg (35.0-45.0) L Arterial Blood Partial Pressure O2 101.2 mmHg (75.0-100.0) H Arterial Blood HCO3 19.0 mmol/L (22.0-26.0) L Arterial Blood Oxygen Saturation 97.6 % (95-100) Arterial Blood Base Excess -3.0 (-2-2) L Tee Test Positive Microbiology Date/Time Source Procedure Growth Status 10/24/18 01:35 Stool Clostridium difficile Toxin Assay - Final Complete Dg Key MD Oct 25, 2018 20:06
[2018-10-25] MEDS ORDERED: Tubing IV Secondary IV ONE ×3 (20:12→20:34)
[2018-10-25] MEDS ORDERED: NS 275ml ONE (20:15)
[2018-10-25] MEDS ORDERED: D5W 275ml ONE (20:34)
[2018-10-25] MEDS ORDERED: Sterile Water For Irrig 2000ml IRRIG ONE (20:34)
--- NOTE | 2018-10-25 20:56 | Neurology Progress Note ---
Interim History Interim History Interim History Mr. Gann is more responsive today. He opens his eyes on vocal stimulation. He is able to give some yes/no answers. He follows commands inconsistently He is still moving his left side better than the right. He continues to be on pressors. He continues to be intubated and artificially ventilated. He continues to be acutely ill. Review of Systems Neuro Review of Systems Benign. Objective Physical Exam Last Vital Signs Date Time Temp Pulse Resp B/P (MAP) Pulse Ox O2 Delivery O2 Flow Rate FiO2 10/25/18 19:00 96 23 101/41 (61) 100 10/25/18 18:59 40 10/25/18 16:00 Mechanical Ventilator 10/25/18 16:00 97.7 10/20/18 16:23 40.0 Laboratory Tests Test 10/25/18 04:30 10/25/18 05:00 10/25/18 17:40 White Blood Count 19.5 K/UL (4.8-10.8) H Red Blood Count 3.21 M/UL (4.70-6.10) L Hemoglobin 8.9 G/DL (14.2-18.0) L Hematocrit 27.1 % (42.0-52.0) L Mean Corpuscular Volume 84 FL (80-99) Mean Corpuscular Hemoglobin 27.8 PG (27.0-31.0) Mean Corpuscular Hemoglobin Concent 33.0 G/DL (32.0-36.0) Red Cell Distribution Width 21.9 % (11.6-14.8) H Platelet Count 64 K/UL (150-450) L Mean Platelet Volume 10.4 FL (6.5-10.1) H Neutrophils (%) (Auto) % (45.0-75.0) Lymphocytes (%) (Auto) % (20.0-45.0) Monocytes (%) (Auto) % (1.0-10.0) Eosinophils (%) (Auto) % (0.0-3.0) Basophils (%) (Auto) % (0.0-2.0) Differential Total Cells Counted 100 Neutrophils % (Manual) 84 % (45-75) H Lymphocytes % (Manual) 4 % (20-45) L Monocytes % (Manual) 3 % (1-10) Eosinophils % (Manual) 1 % (0-3) Basophils % (Manual) 0 % (0-2) Band Neutrophils 8 % (0-8) Nucleated Red Blood Cells 1 /100 WBC Other Cell Type See comments Platelet Estimate Decreased L Platelet Morphology Normal Polychromasia 2+ Hypochromasia 2+ Anisocytosis 2+ Reticulocyte Count 6.1 % (0.0-2.0) H Haptoglobin Pending Fibrinogen 222 mg/dL (200-400) Sodium Level 119 MMOL/L (136-145) *L Potassium Level 3.6 MMOL/L (3.5-5.1) Chloride Level 84 MMOL/L (98-107) L Carbon Dioxide Level 17 MMOL/L (21-32) L Anion Gap 18 mmol/L (5-15) H Blood Urea Nitrogen 86 mg/dL (7-18) H Creatinine 5.3 MG/DL (0.55-1.30) H Estimat Glomerular Filtration Rate mL/min (>60) Glucose Level 198 MG/DL (74-106) H Calcium Level 6.7 MG/DL (8.5-10.1) L Iron Level 25 ug/dL (50-175) L Total Iron Binding Capacity 133 ug/dL (250-450) L Percent Iron Saturation 19 % (15-50) Unsaturated Iron Binding 108 ug/dL (112-346) L Ferritin 994 NG/ML (8-388) H Total Bilirubin 5.5 MG/DL (0.2-1.0) H Direct Bilirubin 4.5 MG/DL (0.0-0.3) H Aspartate Amino Transf (AST/SGOT) 231 U/L (15-37) H Alanine Aminotransferase (ALT/SGPT) 299 U/L (12-78) H Alkaline Phosphatase 247 U/L (46-116) H Lactate Dehydrogenase 598 U/L (81-234) H Total Protein 5.1 G/DL (6.4-8.2) L Albumin 1.8 G/DL (3.4-5.0) L Globulin 3.3 g/dL Albumin/Globulin Ratio 0.5 (1.0-2.7) L Amylase Level 143 U/L (25-115) H Lipase 717 U/L (73-393) H Vitamin B12 Level > 2000 PG/ML (193-986) H Thyroid Stimulating Hormone (TSH) 0.497 uiU/mL (0.358-3.740) Random Vancomycin Level 16.6 ug/mL Heparin-PF4 Antibody Screen Pending HIV (1&2) Antibody Rapid Negative (NEGATIVE) Stool Occult Blood Positive (NEGATIVE) Arterial Blood pH 7.498 (7.350-7.450) Arterial Blood Partial Pressure CO2 25.1 mmHg (35.0-45.0) L Arterial Blood Partial Pressure O2 101.2 mmHg (75.0-100.0) H Arterial Blood HCO3 19.0 mmol/L (22.0-26.0) L Arterial Blood Oxygen Saturation 97.6 % (95-100) Arterial Blood Base Excess -3.0 (-2-2) L Tee Test Positive Neurologic Exam Objective PHYSICAL EXAMINATION: GENERAL: He is a well-developed, relatively well-nourished gentleman , lying in an ICU bed, connected to a ventilator through an orotracheal tube. HEAD: Normocephalic and atraumatic. NECK: No neck rigidity was observed. EENT: Benign. NEUROLOGICAL EXAMINATION: MENTAL STATUS EXAMINATION: He opened his eyes on vocal stimuli. He followed a few simple commands. He was able to communicate with yes/no answers. Further mental status testing was impossible. SPEECH: Could not be tested. LANGUAGE: Could not be tested. CRANIAL NERVE EXAMINATION: II: He did blink to threat. III, IV & : The external ocular movements were present. The pupils were 3 mm in diameter, equal, round, regular, and did not react to light. V & VII: The corneal reflexes were present bilaterally, but significantly diminished on the right side compared to the left. VIII: He did not respond to sounds and had no nystagmus. IX & X: The gag reflex was absent on manipulating the endotracheal tube. XI: The sternocleidomastoids and trapezii did not function. XII: Could not be tested adequately. MOTOR SYSTEM: The tone was normal in all four extremities. Examination of muscle mass revealed no focal wasting. Examination of power was impossible to perform accurately he moved his left side better than the right. SENSORY EXAMINATION: He responded appropriately to deep pain. He was unable to cooperate for other sensory modalities. REFLEXES: Trace+ and bilaterally symmetrical at the biceps, triceps, brachioradialis. 0 at both knees and ankles. The plantar response was extensor on the right and mute on the left. COORDINATION, STANCE & GAIT: Could not be tested. ABNORMAL MOVEMENTS: Tremor (7-8 Hz): 0/4 Impression/Recommendations Diagnostic Impression 1. Mr. Marla Gann is an 83-year-old, gentleman, of unknown handedness, with a past history of multiple medical problems including hypertension, diabetes mellitus, dyslipidemia, aortic stenosis, vitamin B12 deficiency, vitamin D deficiency, coronary artery disease, congestive heart failure, and intestinal pathology. He was hospitalized on 10/09/2018 for an altered mental state related to multiple metabolic imbalances. He did improve, but then in the hospital, he has had multiple further episodes of hypoglycemia. On the morning of 10/19/18, his blood sugar dropped to 22. He has also had problems with his respiratory function, progressive renal dysfunction, and on the morning of 10/19/18 was noted to have weakness in his right upper extremity, this problem continues. 2. He is more responsive today. He opens his eyes on vocal stimulation. He is able to give some yes/no answers. He follows commands inconsistently. He is still moving his left side better than the right. He continues to be on pressors. He continues to be intubated and artificially ventilated. He continues to be acutely ill. 3. On neurological examination, at this time, he opens his eyes on vocal stimuli , he is able to follow commands inconsistently. He is able to communicate with yes/no answers, however further mental status testing is impossible. The corneal reflex is definitely diminished on the right side compared to the left. 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 His deep tendon reflexes are globally diminished in the upper extremities and lost in the lower extremities. His plantar response is extensor on the right and mute on the left. He has no tremor. 4. His laboratory data on my initial evaluation revealed that his WBC count was elevated to 16,000. His hemoglobin was low at 7.2 G. His arterial blood gas revealed a pH of 7.18, a pCO2 of 43, and a pO2 of 112. His chemistry panel revealed a sodium of 133, potassium of 5.3, chloride of 91, BUN at 89, creatinine at 5.2, and blood glucose at 22. 5. His EEG done on 10/19/18 revealed a moderately severe encephalopathy with a definite toxic/metabolic component. 6. The Repeat EEG done on 10/23/18 revealed a moderately severe toxic/metabolic encephalopathy. In addition left > right hemispheric dysfunction was seen. The abnormal movements had no EEG correlate. 7. The CT of the brain was benign for acute pathology. 8. His latest laboratory tests reveal that his leukocytosis is worse with a WBC count of 26,300. He is severely hyponatremic with a Na of 121 and chloride of 86. His BUN is elevated at 72 with a creatinine of 4.9. His LFTs are elevated and so is his glucose. 9. The patient's history, neurological examination, and laboratory data are most compatible with a significant toxic metabolic encephalopathy that brought him into the hospital, and now possibly an acute cerebral lesion causing the right hemiparesis. 10. The left UE movement was a tremor. It has now resolved. However the EEG while he was having the tremor revealed no EEG correlate. 11. His encephalopathy is better today. Recommendations 1. Continue present management. 2. Continue to correct toxic metabolic imbalances. 3. Try to keep the blood pressure >110 mmHg systolic. 4. When possible get MRI of brain. 5. Observe closely in ICU setting. Abram Johnson M.D., M.S.P.H. Abram Johnson MD Oct 25, 2018 20:56
[2018-10-25] MEDS: Latanoprost 0.005% Opth 2.5ml Soln BOTH EYES SCH (21:13)
[2018-10-25] MEDS: Atorvastatin 20mg tab ORAL SCH (21:13)
--- NOTE | 2018-10-25 21:41 | General Progress Note ---
Assessment/Plan Problem List: (1) Acute metabolic encephalopathy ICD Codes: G93.41 - Metabolic encephalopathy SNOMED: 77810058, [id number] Status: unchanged Assessment/Plan the pt lacks capacity to make decisions next of keen should makes all the decisions cont bilat restraints haldol prn for agitation rec dnr/dni Subjective Neurologic/Psychiatric: Reports: anxiety Allergies: Coded Allergies: PENICILLINS (Verified Allergy, Unknown, 10/09/18) Subjective the pt is lethargic open eyes agitated at times Objective Last 24 Hour Vital Signs Date Time Temp Pulse Resp B/P (MAP) Pulse Ox O2 Delivery O2 Flow Rate FiO2 10/25/18 21:08 91 28 40 10/25/18 21:00 92 30 101/51 (68) 100 10/25/18 20:45 92 23 98/43 (61) 99 10/25/18 20:30 90 28 96/60 (72) 98 10/25/18 20:00 40 10/25/18 20:00 91 10/25/18 20:00 Mechanical Ventilator 10/25/18 20:00 98.0 92 26 95/60 (72) 98 10/25/18 19:30 94 33 100/58 (72) 98 10/25/18 19:00 96 23 101/41 (61) 100 10/25/18 18:59 90 27 40 10/25/18 18:30 108 22 111/42 (65) 10/25/18 18:00 108 23 115/51 (72) 98 18 17:30 104 27 118/45 (69) 97 10/25/18 17:00 102 29 97/53 (68) 98 10/25/18 16:52 91 24 40 10/25/18 16:30 93 32 105/36 (59) 97 10/25/18 16:00 Mechanical Ventilator 10/25/18 16:00 90 10/25/18 16:00 40 10/25/18 16:00 97.7 94 32 100/40 (60) 97 10/25/18 15:30 95 31 101/42 (61) 97 10/25/18 15:00 90 29 106/56 (73) 100 18 14:31 86 30 40 10/25/18 14:30 86 29 98/51 (67) 100 10/25/18 14:00 86 30 91/49 (63) 100 10/25/18 13:30 85 31 98/64 (75) 100 10/25/18 13:00 86 32 105/45 (65) 99 10/25/18 12:45 91/49 10/25/18 12:44 89 36 40 10/25/18 12:30 87 30 100/49 (66) 99 10/25/18 12:00 40 10/25/18 12:00 Mechanical Ventilator 10/25/18 12:00 98.0 86 32 99/49 (66) 99 10/25/18 12:00 89 10/25/18 11:31 91/49 10/25/18 11:30 88 18 95/52 (66) 100 10/25/18 11:00 85 15 91/49 (63) 100 10/25/18 10:30 88 21 103/41 (61) 99 10/25/18 10:29 84 33 40 10/25/18 10:00 86 33 94/44 (61) 100 10/25/18 09:30 86 30 99/47 (64) 99 10/25/18 09:00 83 26 101/19 (46) 100 10/25/18 08:55 108/29 10/25/18 08:50 82 30 40 10/25/18 08:30 83 30 89/43 (58) 100 10/25/18 08:00 97.5 85 30 95/45 (62) 100 10/25/18 08:00 86 10/25/18 08:00 40 10/25/18 08:00 Mechanical Ventilator 10/25/18 07:30 86 35 91/47 (62) 100 10/25/18 07:28 82 29 40 10/25/18 07:00 85 25 108/29 (55) 100 10/25/18 06:30 105 40 97/66 (76) 97 10/25/18 06:00 104 25 103/73 (83) 97 10/25/18 05:30 82 27 95/48 (64) 91 10/25/18 05:23 80 29 40 10/25/18 05:15 79 27 91/49 (63) 100 10/25/18 05:00 82 19 92/48 (63) 100 10/25/18 04:36 81 28 90/40 (57) 100 10/25/18 04:00 98.0 83 7 89/44 (59) 100 10/25/18 04:00 79 10/25/18 04:00 Mechanical Ventilator 10/25/18 04:00 40 10/25/18 03:30 81 26 91/43 (59) 100 10/25/18 03:23 85 27 40 10/25/18 03:00 91 29 100/52 (68) 100 10/25/18 02:30 84 29 91/71 (78) 87 10/25/18 02:00 83 35 97/46 (63) 100 10/25/18 01:30 83 31 93/43 (60) 100 10/25/18 01:28 84 29 40 10/25/18 01:00 81 18 73/41 (52) 100 10/25/18 00:30 84 35 94/56 (69) 100 10/25/18 00:00 Mechanical Ventilator 10/25/18 00:00 40 10/25/18 00:00 98.2 84 31 98/49 (65) 100 10/24/18 23:30 87 35 101/60 (74) 100 10/24/18 22:36 81 30 40 10/24/18 22:30 85 31 100/60 (73) 100 10/24/18 22:00 84 27 103/48 (66) 100 Intake and Output 10/24/18 10/25/18 18:59 06:59 Intake Total 1838.860 ml 899.10 ml Output Total 0 ml 75 ml Balance 1838.860 ml 824.10 ml Free Water 180 ml IV Total 1118.860 ml 419.10 ml Tube Feeding 480 ml 480 ml Other 60 ml Output Urine Total 0 ml 0 ml Stool Total 75 ml Laboratory Tests 10/25/18 04:30: White Blood Count 19.5H, Red Blood Count 3.21L, Hemoglobin 8.9L, Hematocrit 27.1L, Mean Corpuscular Volume 84, Mean Corpuscular Hemoglobin 27.8, Mean Corpuscular Hemoglobin Concent 33.0, Red Cell Distribution Width 21.9H, Platelet Count 64L, Mean Platelet Volume 10.4H, Neutrophils (%) (Auto) , Lymphocytes (%) (Auto) , Monocytes (%) (Auto) , Eosinophils (%) (Auto) , Basophils (%) (Auto) , Differential Total Cells Counted 100, Neutrophils % ( Manual) 84H, Lymphocytes % (Manual) 4L, Monocytes % (Manual) 3, Eosinophils % ( Manual) 1, Basophils % (Manual) 0, Band Neutrophils 8, Nucleated Red Blood Cells 1, Other Cell Type See comments, Platelet Estimate DecreasedL, Platelet Morphology Normal, Polychromasia 2+, Hypochromasia 2+, Anisocytosis 2+, Reticulocyte Count 6.1H, Haptoglobin [Pending], Fibrinogen 222, Sodium Level 119 *L, Potassium Level 3.6, Chloride Level 84L, Carbon Dioxide Level 17L, Anion Gap 18H, Blood Urea Nitrogen 86H, Creatinine 5.3H, Estimat Glomerular Filtration Rate , Glucose Level 198H, Calcium Level 6.7L, Iron Level 25L, Total Iron Binding Capacity 133L, Percent Iron Saturation 19, Unsaturated Iron Binding 108L, Ferritin 994H, Total Bilirubin 5.5H, Direct Bilirubin 4.5H, Aspartate Amino Transf (AST/SGOT) 231H, Alanine Aminotransferase (ALT/SGPT) 299H , Alkaline Phosphatase 247H, Lactate Dehydrogenase 598H, Total Protein 5.1L, Albumin 1.8L, Globulin 3.3, Albumin/Globulin Ratio 0.5L, Amylase Level 143H, Lipase 717H, Vitamin B12 Level > 2000H, Thyroid Stimulating Hormone (TSH) 0.497 , Random Vancomycin Level 16.6, Heparin-PF4 Antibody Screen [Pending], HIV (1&2 ) Antibody Rapid Negative 10/25/18 05:00: Stool Occult Blood Positive 10/25/18 17:40: Arterial Blood pH 7.498H, Arterial Blood Partial Pressure CO2 25.1L, Arterial Blood Partial Pressure O2 101.2H, Arterial Blood HCO3 19.0L, Arterial Blood Oxygen Saturation 97.6, Arterial Blood Base Excess -3.0L, Tee Test Positive Height (Feet): 5 Height (Inches): 2.00 Weight (Pounds): 148 General Appearance: confused, agitated Danna Sanchez MD Oct 25, 2018 21:41
--- NOTE | 2018-10-25 21:43 | Diagnostic Imaging Report ---
APPROVED REPORT CPT Code: 10568 Present Symptoms Lower Extremity Edema: BILATERAL: Imaging reveals a patent deep venous system bilaterally. There is no evidence of thrombus within the common femoral, superficial femoral, popliteal or tibial segments. The greater saphenous veins are also within normal limits. Doppler indicates normal spontaneous flow within these segments.
--- NOTE | 2018-10-25 21:50 | Diagnostic Imaging Report ---
APPROVED REPORT CPT Code: 30365 Symptoms Other : Weakness Comments Hx of a PICC line BILATERAL UPPER EXTREMITY: Imaging of the subclavian, axillary, brachial, radial and ulnar arteries is within normal limits. There is no evidence of stenosis or occlusions within these segments. The Doppler waveforms of both upper extremities are multiphasic, consistent with normal inflow to both upper extremities.
--- NOTE | 2018-10-25 21:50 | Diagnostic Imaging Report ---
APPROVED REPORT CPT Code: 03488 Present Symptoms Comments: Upper arm weakness Hx of a PICC line left upper arm RIGHT UPPER EXTREMITY: Venous imaging reveals patency of the subclavian, axillary and brachial veins. The basilic vein is also patent. Doppler indicates normal spontaneous flow within these venous segments. The right cephalic vein was not visualized. The right internal jugular vein was not imaged, due to a catheter. LEFT UPPER EXTREMITY: Venous imaging reveals patency of the internal jugular, subclavian, axillary and brachial veins. The basilic vein was not visualized (catheter). The cephalic vein is within normal limits. Doppler indicates normal spontaneous flow within these venous segments.
--- NOTE | 2018-10-25 22:00 | NUR ---
NURSE NOTES: Patient repositioned, Patient remains on pressors. BP stable with pressors, family at bedside.
[2018-10-26] VITALS (58 sets, daily range): BP systolic 69–109; BP diastolic 35–55
--- NOTE | 2018-10-26 | NUR ---
NURSE NOTES: Patient repositioned, patient oozing from all four extremities. Pressors ongoing. Feed residual of 120ml will hold for now.
[2018-10-26] MEDS: NovoLOG Insulin Flexpen SUBQ SCH ×6 (01:15→21:23)
--- NOTE | 2018-10-26 02:00 | NUR ---
NURSE NOTES: Patient repositioned and oral care provided.
--- NOTE | 2018-10-26 04:00 | NUR ---
NURSE NOTES: Patient cleaned and repositioned. Labs drawn and sent. Central line dressing changed.
[2018-10-26 05:43] LABS: HEMATOCRIT 27.7 % (42.0-52.0); HEMOGLOBIN 8.6 G/DL (14.2-18.0); MEAN CORPUSCULAR VOLUME 87 FL (80-99); PLATELET COUNT 40 K/UL (150-450); RED BLOOD COUNT 3.17 M/UL (4.70-6.10); RED CELL DISTRIBUTION WIDTH 24.2 % (11.6-14.8); WHITE BLOOD COUNT 14.4 K/UL (4.8-10.8)
[2018-10-26 06:25] LABS: ALANINE AMINOTRANSFERASE 223 U/L (12-78); ALBUMIN 1.6 G/DL (3.4-5.0); ALBUMIN/GLOBULIN RATIO 0.4 (1.0-2.7); ALKALINE PHOSPHATASE 288 U/L (46-116); ANION GAP 14 mmol/L (5-15); ASPARTATE AMINO TRANSFERASE 182 U/L (15-37); BILIRUBIN,TOTAL 4.8 MG/DL (0.2-1.0); BLOOD UREA NITROGEN 69 mg/dL (7-18); CALCIUM 6.8 MG/DL (8.5-10.1); CARBON DIOXIDE 21 MMOL/L (21-32); CHLORIDE 87 MMOL/L (98-107); CREATININE 4.5 MG/DL (0.55-1.30); POTASSIUM 3.5 MMOL/L (3.5-5.1); SODIUM 122 MMOL/L (136-145)
--- NOTE | 2018-10-26 06:27 | NUR ---
NURSE NOTES: Patient repositioned, new IV tubing hung. No acute changes overnight other than titrating down pressors.Will continue to monitor.
--- NOTE | 2018-10-26 06:40 | NUR ---
RESPIRATORY NOTE: Received pt on [id number]% FiO2- peep of 5, tolerating well. pt's resting comfortably, eyes open, more awake and alert, follow simple commands. pt is orally intubated with ETT 7.5 @ 23 cm lips line, secured by anchor fast. Keny rhonchi breath sounds upon auscultation, suctioned small amount of thick brown/red specks/oliveira secretions without any incidents. Alarms are set and audible, vent is plugged into the red outlet, ambu bag is at bedside. Vent circuits and sxn tubbing are secured and out of the way. Will continue to monitor pt.
--- NOTE | 2018-10-26 06:42 | General Progress Note ---
Assessment/Plan Problem List: (1) CKD (chronic kidney disease) ICD Codes: N18.9 - Chronic kidney disease, unspecified SNOMED: 819383420 (2) Hypoglycemia ICD Codes: E16.2 - Hypoglycemia, unspecified SNOMED: 008027526 (3) Altered mental status ICD Codes: R41.82 - Altered mental status, unspecified SNOMED: 467382242 (4) Ventilator dependence ICD Codes: Z99.11 - Dependence on respirator [ventilator] status SNOMED: 406985849 (5) Hyponatremia ICD Codes: E87.1 - Hypo-osmolality and hyponatremia SNOMED: 72890541 Assessment/Plan continue glucose monitoring - low dose Novolog coverage hypoglycemia protocol in order Subjective ROS Limited/Unobtainable: Yes Allergies: Coded Allergies: PENICILLINS (Verified Allergy, Unknown, 10/09/18) Subjective events noted glucose values are stable without hypoglycemia Item Value Date Time Bedside Blood Glucose 155 mg/dl H 10/26/18 0530 Bedside Blood Glucose 171 mg/dl H 10/26/18 0115 Bedside Blood Glucose 141 mg/dl H 10/25/18 2114 Bedside Blood Glucose 113 mg/dl 10/25/18 1715 Bedside Blood Glucose 160 mg/dl H 10/25/18 1307 Bedside Blood Glucose 173 mg/dl H 10/25/18 0843 Bedside Blood Glucose 203 mg/dl H 10/25/18 0508 Objective Last 24 Hour Vital Signs Date Time Temp Pulse Resp B/P (MAP) Pulse Ox O2 Delivery O2 Flow Rate FiO2 10/26/18 06:30 84 20 91/45 (60) 100 10/26/18 06:00 82 20 89/42 (58) 100 10/26/18 05:30 84 15 94/43 (60) 100 10/26/18 05:00 86 10/26/18 05:00 85 14 79/40 (53) 100 10/26/18 04:55 85 25 40 10/26/18 04:30 85 4 82/49 (60) 100 10/26/18 04:00 98.0 81 20 90/43 (59) 100 10/26/18 04:00 40 10/26/18 04:00 Mechanical Ventilator 10/26/18 03:30 84 25 40 10/26/18 03:30 85 24 90/48 (62) 100 10/26/18 03:00 85 25 95/39 (57) 100 10/26/18 02:30 87 28 98/42 (60) 100 10/26/18 02:00 89 27 109/41 (63) 100 10/26/18 01:30 89 26 40 10/26/18 01:30 87 28 94/45 (61) 100 10/26/18 01:00 89 20 94/49 (64) 100 10/26/18 00:30 91 28 99/45 (63) 100 10/26/18 00:00 40 10/26/18 00:00 97.6 89 27 105/46 (65) 100 10/26/18 00:00 Mechanical Ventilator 10/25/18 23:30 89 29 105/46 (65) 100 10/25/18 23:10 85 30 40 10/25/18 23:00 91 28 105/38 (60) 100 10/25/18 23:00 105/38 10/25/18 22:45 89 31 66/52 (57) 100 10/25/18 22:30 89 21 101/56 (71) 100 10/25/18 22:15 92 25 101/46 (64) 100 10/25/18 22:00 90 25 107/45 (65) 100 10/25/18 21:45 90 26 101/47 (65) 100 10/25/18 21:30 90 26 103/45 (64) 100 10/25/18 21:08 91 28 40 10/25/18 21:00 92 30 101/51 (68) 100 10/25/18 20:45 92 23 98/43 (61) 99 10/25/18 20:30 90 28 96/60 (72) 98 10/25/18 20:00 40 10/25/18 20:00 91 10/25/18 20:00 Mechanical Ventilator 10/25/18 20:00 98.0 92 26 95/60 (72) 98 10/25/18 19:30 94 33 100/58 (72) 98 10/25/18 19:00 96 23 101/41 (61) 100 10/25/18 18:59 90 27 40 10/25/18 18:30 108 22 111/42 (65) 10/25/18 18:00 108 23 115/51 (72) 98 10/25/18 17:30 104 27 118/45 (69) 97 10/25/18 17:00 102 29 97/53 (68) 98 10/25/18 16:52 91 24 40 10/25/18 16:30 93 32 105/36 (59) 97 10/25/18 16:00 Mechanical Ventilator 10/25/18 16:00 90 10/25/18 16:00 40 10/25/18 16:00 97.7 94 32 100/40 (60) 97 10/25/18 15:30 95 31 101/42 (61) 97 10/25/18 15:00 90 29 106/56 (73) 100 10/25/18 14:31 86 30 40 10/25/18 14:30 86 29 98/51 (67) 100 10/25/18 14:00 86 30 91/49 (63) 100 10/25/18 13:30 85 31 98/64 (75) 100 10/25/18 13:00 86 32 105/45 (65) 99 10/25/18 12:45 91/49 10/25/18 12:44 89 36 40 10/25/18 12:30 87 30 100/49 (66) 99 10/25/18 12:00 40 10/25/18 12:00 Mechanical Ventilator 10/25/18 12:00 98.0 86 32 99/49 (66) 99 10/25/18 12:00 89 10/25/18 11:31 91/49 10/25/18 11:30 88 18 95/52 (66) 100 10/25/18 11:00 85 15 91/49 (63) 100 10/25/18 10:30 88 21 103/41 (61) 99 10/25/18 10:29 84 33 40 10/25/18 10:00 86 33 94/44 (61) 100 10/25/18 09:30 86 30 99/47 (64) 99 10/25/18 09:00 83 26 101/19 (46) 100 10/25/18 08:55 108/29 10/25/18 08:50 82 30 40 10/25/ 08:30 83 30 89/43 (58) 100 10/25/18 08:00 97.5 85 30 95/45 (62) 100 10/25/18 08:00 86 10/25/18 08:00 40 2/18/19 08:00 Mechanical Ventilator 10/25/18 07:30 86 35 91/47 (62) 100 10/25/18 07:28 82 29 40 10/25/18 07:00 85 25 108/29 (55) 100 Intake and Output 10/25/18 10/26/18 19:00 07:00 Intake Total 830.05 ml 731.20 ml Output Total 1100 ml 0 ml Balance -269.95 ml 731.20 ml IV Total 430.05 ml 491.20 ml Tube Feeding 400 ml 240 ml Output Urine Total 0 ml 0 ml Stool Total 100 ml Hemodialysis UF 1000 ml Laboratory Tests 10/25/18 17:40: Arterial Blood pH 7.498H, Arterial Blood Partial Pressure CO2 25.1L, Arterial Blood Partial Pressure O2 101.2H, Arterial Blood HCO3 19.0L, Arterial Blood Oxygen Saturation 97.6, Arterial Blood Base Excess -3.0L, Tee Test Positive 10/26/18 05:00: White Blood Count 14.4H, Red Blood Count 3.17L, Hemoglobin 8.6L, Hematocrit 27.7L, Mean Corpuscular Volume 87, Mean Corpuscular Hemoglobin 27.1, Mean Corpuscular Hemoglobin Concent 31.0L, Red Cell Distribution Width 24.2H, Platelet Count 40L, Mean Platelet Volume 9.7, Neutrophils (%) (Auto) , Lymphocytes (%) (Auto) , Monocytes (%) (Auto) , Eosinophils (%) (Auto) , Basophils (%) (Auto) , Neutrophils % (Manual) [Pending], Lymphocytes % (Manual) [Pending], Platelet Estimate [Pending], Platelet Morphology [Pending], Sodium Level 122L, Potassium Level 3.5, Chloride Level 87L, Carbon Dioxide Level 21, Anion Gap 14, Blood Urea Nitrogen 69H, Creatinine 4.5H, Estimat Glomerular Filtration Rate , Glucose Level 152H, Calcium Level 6.8L, Total Bilirubin 4.8H, Direct Bilirubin [Pending], Aspartate Amino Transf (AST/SGOT) 182H, Alanine Aminotransferase (ALT/SGPT) 223H, Alkaline Phosphatase 288H, Total Protein 5.2L , Albumin 1.6L, Globulin 3.6, Albumin/Globulin Ratio 0.4L Height (Feet): 5 Height (Inches): 2.00 Weight (Pounds): 148 General Appearance: moderate distress Neck: normal alignment Cardiovascular: tachycardia Respiratory/Chest: decreased breath sounds Abdomen: normal bowel sounds Objective Current Medications Medications (Trade) Dose Ordered Sig/Ashely Route PRN Reason Start Time Stop Time Status Last Admin Dose Admin Acetaminophen (Tylenol) 650 mg Q6H PRN ORAL Mild Pain/Temp > 100.5 10/18/18 16:30 11/08/18 04:23 Aspirin (Ecotrin) 81 mg DAILY ORAL 10/19/18 09:00 11/09/18 08:59 10/24/18 09:54 Atorvastatin Calcium (Lipitor) 40 mg BEDTIME ORAL 10/18/18 21:00 11/09/18 20:59 10/25/18 21:13 Calcium Carbonate (Tums) 500 mg BID GT 10/20/18 18:00 11/09/18 08:59 10/25/18 17:54 Chlorhexidine Gluconate (Anai-Hex 2%) 1 applic DAILY@2000 TOPIC 10/18/18 20:00 11/12/18 19:59 10/25/18 20:00 Dextrose (Dextrose 50%) 25 ml Q30M PRN IV Hypoglycemia 10/23/18 08:15 11/22/18 08:14 Dextrose (Dextrose 50%) 50 ml Q30M PRN IV Hypoglycemia 10/23/18 08:15 11/22/18 08:14 Dobutamine HCl 250 ml @ 10.05 mls/ hr Q24H IV 10/19/18 11:40 11/18/18 11:39 10/22/18 12:43 Dopamine HCl/ Dextrose 250 ml @ 0 mls/hr Q24H IV 10/19/18 12:45 11/18/18 12:44 10/20/18 17:43 Fluconazole/ Sodium Chloride 100 ml @ 100 mls/hr Q24H IV 10/22/18 20:00 10/29/18 19:59 10/25/18 20:00 Haloperidol Lactate (Haldol) 5 mg Q6H PRN IM Agitation 10/18/18 17:00 11/17/18 16:59 Insulin Aspart (NovoLOG) EVERY 4 HOURS SUBQ 10/23/18 09:00 11/22/18 08:59 10/26/18 05:30 Latanoprost (Xalatan) 1 drop BEDTIME BOTH EYES 10/18/18 21:00 11/10/18 20:59 10/25/18 21:13 Meropenem 500 mg/ Sodium Chloride 50 ml @ 100 mls/hr Q24HRS IVPB 10/25/18 00:00 10/30/18 00:00 10/26/18 00:00 Norepinephrine Bitartrate 16 mg/ Dextrose 500 ml @ 0 mls/hr Q24H IV 10/20/18 18:00 11/19/18 17:59 10/25/18 23:00 Ondansetron HCl (Zofran) 4 mg Q8H PRN IVP Nausea & Vomiting 10/18/18 17:00 11/17/18 16:59 Pantoprazole (Protonix) 40 mg ACBREAKFAST ORAL 10/19/18 06:30 11/09/18 08:59 10/26/18 05:30 Promethazine HCl (Phenergan [place]) 6.25 mg Q6H PRN ORAL For Cough 10/18/18 16:45 11/10/18 04:32 Vancomycin HCl (Firvanq) 125 mg FOUR TIMES A DAY ORAL 10/22/18 21:00 10/29/18 20:59 10/25/18 21:13 Vancomycin HCl (Vanco rx to dose) 1 ea DAILY PRN MISC Per rx protocol 10/19/18 23:30 11/18/18 23:29 Vasopressin 100 units/Sodium Chloride 100 ml @ 2.4 mls/hr Q24H IV 10/22/18 15:00 11/21/18 14:59 10/25/18 15:13 Barry Schmitt MD Oct 26, 2018 06:42
--- NOTE | 2018-10-26 07:11 | NUR ---
HAND-OFF: Report given to Raul OSMAN.
--- NOTE | 2018-10-26 07:25 | NUR ---
NURSE NOTES: Received report from Jimmie OSMAN. Pt awake and alert and oriented x 2-3. Pt able to follow simple commands. Pt on school bus monitor, SR. Pt orally intubated ETT 7.5, 23 cm lip line, AC 20, TV 500, 40% FIO2, PEEP 5. OGT with nepro at 40 cc/hr. Rectal tube intact draining brown liquid stool to gravity. KIM PICC intact and RIJ cem intact. Vasopressin running at .02 u/hr and levophed running at 10 mcg/hr. Safety measures in place with bed locked and in lowest position, side rails x3 up and bed alarm on. Will continue to monitor and continue plan of care.
[2018-10-26] MEDS: Tums 500mg GT SCH ×2 (08:20→17:41)
[2018-10-26] MEDS: Vancomycin oral 125mg/2.5ml ORAL SCH ×2 (08:20→13:01)
[2018-10-26] MEDS: Aspirin EC 81mg tab ORAL SCH (08:20)
--- NOTE | 2018-10-26 08:42 | NUR ---
Dr Ferreira here to see pt, no new orders. Dr Bourne here to see pt, wants pt to start vent weaning trial. Will continue to monitor.
--- NOTE | 2018-10-26 09:08 | NUR ---
RADIOLOGY DEPT CHEST X-RAY DONE.-P.DYE
--- NOTE | 2018-10-26 09:30 | NUR ---
RESPIRATORY NOTE: Placed pt on CPAP PS 12- 40% FiO2- peep of [address] Bourne's order. Pt's tolerating well. RN Krystal made aware. Will continue to monitor.
--- NOTE | 2018-10-26 09:40 | Diagnostic Imaging Report ---
Indication: Dyspnea Technique: One view of the chest Comparison: 10/21/2018 Findings: Stable satisfactory positions of endotracheal and nasogastric tube, right jugular temporary dialysis catheter. There is increasing bilateral interstitial and airspace edema. Left pleural effusion is unchanged, right pleural effusion appears slightly larger Impression: Worsening pulmonary interstitial and airspace edema. Stable left, increasing right pleural effusions, both small Satisfactory tube and line positions, as described
--- NOTE | 2018-10-26 10:43 | Pulmonolgy Critical Care Note ---
Critical Care - Asmt/Plan Problems: (1) Respiratory failure, acute (2) Ventilator dependence (3) CHF (congestive heart failure) (4) CAD (coronary artery disease) (5) NSTEMI (non-ST elevated myocardial infarction) (6) Respiratory acidosis (7) Hemoptysis (8) Hypoglycemia (9) Pneumonia (10) Hypotension (11) Elevated d-dimer (12) Acute kidney injury superimposed on CKD Assessment & Plan: S/P initiation of HD (13) Hyponatremia (14) Sepsis Respiratory: monitor respiratory rate, adjust FIO2, weaning trial Cardiac: continue pressors, continue to monitor HR/BP Renal: check electrolytes, other - HD per renal Infectious Disease: check cultures, continue antibiotics Gastrointestinal: continue feedings/current rate Endocrine: monitor blood sugar, other - F/U ENDO RECS Hematologic: monitor H/H - and plateltes, other - F/u HIT Ab panel Prophylaxis: Protonix, SCDs Disposition: keep in ICU Time Spent (Minutes): 40 Notes Reviewed: information systems manager, cardio, renal, ID Discussed with: nurses, consultants Critical Care - Objective Last 24 Hour Vital Signs Date Time Temp Pulse Resp B/P (MAP) Pulse Ox O2 Delivery O2 Flow Rate FiO2 10/26/18 10:00 92 5 102/53 (69) 98 10/26/18 09:30 87 36 40 10/26/18 09:30 100 10/26/18 09:30 89 17 92/39 (56) 96 10/26/18 09:00 87 20 91/38 (55) 99 10/26/18 08:30 85 26 92/42 (59) 100 10/26/18 08:00 40 10/26/18 08:00 Mechanical Ventilator 10/26/18 08:00 98.2 85 19 89/45 (60) 99 10/26/18 08:00 85 10/26/18 07:30 86 20 96/43 (60) 98 10/26/18 07:00 82 20 100/55 (70) 100 10/26/18 06:40 84 33 40 10/26/18 06:30 84 20 91/45 (60) 100 10/26/18 06:00 82 20 89/42 (58) 100 10/26/18 05:30 84 15 94/43 (60) 100 10/26/18 05:00 86 10/26/18 05:00 85 14 79/40 (53) 100 10/26/18 04:55 85 25 40 10/26/18 04:30 85 4 82/49 (60) 100 10/26/18 04:00 98.0 81 20 90/43 (59) 100 10/26/18 04:00 40 10/26/18 04:00 Mechanical Ventilator 10/26/18 03:30 84 25 40 10/26/18 03:30 85 24 90/48 (62) 100 10/26/18 03:00 85 25 95/39 (57) 100 10/26/18 02:30 87 28 98/42 (60) 100 10/26/18 02:00 89 27 109/41 (63) 100 10/26/18 01:30 89 26 40 10/26/18 01:30 87 28 94/45 (61) 100 10/26/18 01:00 89 20 94/49 (64) 100 10/26/18 00:30 91 28 99/45 (63) 100 10/26/18 00:00 40 10/26/18 00:00 97.6 89 27 105/46 (65) 100 10/26/18 00:00 Mechanical Ventilator 10/25/18 23:30 89 29 105/46 (65) 100 10/25/18 23:10 85 30 40 10/25/18 23:00 91 28 105/38 (60) 100 10/25/18 23:00 105/38 10/25/18 22:45 89 31 66/52 (57) 100 10/25/18 22:30 89 21 101/56 (71) 100 10/25/18 22:15 92 25 101/46 (64) 100 10/25/18 22:00 90 25 107/45 (65) 100 10/25/18 21:45 90 26 101/47 (65) 100 10/25/18 21:30 90 26 103/45 (64) 100 10/25/18 21:08 91 28 40 10/25/18 21:00 92 30 101/51 (68) 100 10/25/18 20:45 92 23 98/43 (61) 99 10/25/18 20:30 90 28 96/60 (72) 98 10/25/18 20:00 40 10/25/18 20:00 91 10/25/18 20:00 Mechanical Ventilator 10/25/18 20:00 98.0 92 26 95/60 (72) 98 10/25/18 19:30 94 33 100/58 (72) 98 10/25/18 19:00 96 23 101/41 (61) 100 10/25/18 18:59 90 27 40 10/25/18 18:30 108 22 111/42 (65) 10/25/18 18:00 108 23 115/51 (72) 98 10/25/18 17:30 104 27 118/45 (69) 97 10/25/18 17:00 102 29 97/53 (68) 98 10/25/18 16:52 91 24 40 10/25/18 16:30 93 32 105/36 (59) 97 10/25/18 16:00 Mechanical Ventilator 10/25/18 16:00 90 10/25/18 16:00 40 10/25/18 16:00 97.7 94 32 100/40 (60) 97 10/25/18 15:30 95 31 101/42 (61) 97 10/25/18 15:00 90 29 106/56 (73) 100 10/25/18 14:31 86 30 40 10/25/18 14:30 86 29 98/51 (67) 100 10/25/18 14:00 86 30 91/49 (63) 100 10/25/18 13:30 85 31 98/64 (75) 100 10/25/18 13:00 86 32 105/45 (65) 99 10/25/18 12:45 91/49 10/25/18 12:44 89 36 40 10/25/18 12:30 87 30 100/49 (66) 99 10/25/18 12:00 40 10/25/18 12:00 Mechanical Ventilator 10/25/18 12:00 98.0 86 32 99/49 (66) 99 10/25/18 12:00 89 10/25/18 11:31 91/49 10/25/18 11:30 88 18 95/52 (66) 100 10/25/18 11:00 85 15 91/49 (63) 100 Status: awake Condition: other - intubated HEENT: atraumatic, normocephalic Lungs: rales Heart: HR/BP unstable Abdomen: soft, non-tender, active bowel sounds Extremities: edema - trace Micro: Microbiology Date/Time Source Procedure Growth Status 10/24/18 01:35 Stool Clostridium difficile Toxin Assay - Final Complete Accucheck: 121 Blood Sugars: BS controlled Critical Care - Subjective ROS Limited/Unobtainable: Yes ICU Day: 9 Intubation Day: 8 Interval Events: Na 122, Plt 40, weaning pressors, awake Condition: critical IV Access: PICC, central EKG Rhythm: Sinus Rhythm FI02: 40 Vent Support Breath Rate: 20 Vent Support Mode: CPAP Vent Tidal Volume: 500 Sputum Amount: Moderate PEEP: 5.0 PIP: 18 Drips: Vaso 0.02 NE 10 Tube Feeding Amount: 40 I&O: Intake and Output 10/25/18 10/26/18 19:00 07:00 Intake Total 830.05 ml 787.40 ml Output Total 1100 ml 0 ml Balance -269.95 ml 787.40 ml IV Total 430.05 ml 507.40 ml Tube Feeding 400 ml 280 ml Output Urine Total 0 ml 0 ml Stool Total 100 ml Hemodialysis UF 1000 ml Subjective: ZACHARY CXR: PVC ET-Tube: 7.5 ET Position: 23 Labs: Laboratory Tests Test 10/25/18 17:40 10/26/18 05:00 Arterial Blood pH 7.498 (7.350-7.450) Arterial Blood Partial Pressure CO2 25.1 mmHg (35.0-45.0) L Arterial Blood Partial Pressure O2 101.2 mmHg (75.0-100.0) H Arterial Blood HCO3 19.0 mmol/L (22.0-26.0) L Arterial Blood Oxygen Saturation 97.6 % (95-100) Arterial Blood Base Excess -3.0 (-2-2) L Tee Test Positive White Blood Count 14.4 K/UL (4.8-10.8) H Red Blood Count 3.17 M/UL (4.70-6.10) L Hemoglobin 8.6 G/DL (14.2-18.0) L Hematocrit 27.7 % (42.0-52.0) L Mean Corpuscular Volume 87 FL (80-99) Mean Corpuscular Hemoglobin 27.1 PG (27.0-31.0) Mean Corpuscular Hemoglobin Concent 31.0 G/DL (32.0-36.0) L Red Cell Distribution Width 24.2 % (11.6-14.8) H Platelet Count 40 K/UL (150-450) L Mean Platelet Volume 9.7 FL (6.5-10.1) Neutrophils (%) (Auto) % (45.0-75.0) Lymphocytes (%) (Auto) % (20.0-45.0) Monocytes (%) (Auto) % (1.0-10.0) Eosinophils (%) (Auto) % (0.0-3.0) Basophils (%) (Auto) % (0.0-2.0) Differential Total Cells Counted 100 Neutrophils % (Manual) 83 % (45-75) H Lymphocytes % (Manual) 7 % (20-45) L Monocytes % (Manual) 3 % (1-10) Eosinophils % (Manual) 0 % (0-3) Basophils % (Manual) 0 % (0-2) Band Neutrophils 7 % (0-8) Platelet Estimate Decreased L Platelet Morphology Normal Polychromasia 2+ Hypochromasia 2+ Anisocytosis 3+ Sodium Level 122 MMOL/L (136-145) L Potassium Level 3.5 MMOL/L (3.5-5.1) Chloride Level 87 MMOL/L (98-107) L Carbon Dioxide Level 21 MMOL/L (21-32) Anion Gap 14 mmol/L (5-15) Blood Urea Nitrogen 69 mg/dL (7-18) H Creatinine 4.5 MG/DL (0.55-1.30) H Estimat Glomerular Filtration Rate mL/min (>60) Glucose Level 152 MG/DL (74-106) H Calcium Level 6.8 MG/DL (8.5-10.1) L Total Bilirubin 4.8 MG/DL (0.2-1.0) H Direct Bilirubin 4.0 MG/DL (0.0-0.3) H Aspartate Amino Transf (AST/SGOT) 182 U/L (15-37) H Alanine Aminotransferase (ALT/SGPT) 223 U/L (12-78) H Alkaline Phosphatase 288 U/L (46-116) H Total Protein 5.2 G/DL (6.4-8.2) L Albumin 1.6 G/DL (3.4-5.0) L Globulin 3.6 g/dL Albumin/Globulin Ratio 0.4 (1.0-2.7) L Naraghi,Chidi L. MD Oct 26, 2018 10:43
[2018-10-26] MEDS: DOBUTamine 250mg/250ml Premix 250 ML IV SCH (11:06)
--- NOTE | 2018-10-26 11:08 | NUR ---
NURSE NOTES: Informed Dr Bourne that pt tolerated CPAP on pressure support 12 for 1 1/2 hr. said to drop PS to 8. Will continue to monitor.
--- NOTE | 2018-10-26 11:15 | NUR ---
RESPIRATORY NOTE: Decreased PS down to [address] Bourne's order. Pt's still tolerating well. No SOB or resp distress noted. Will continue to monitor.
[2018-10-26] MEDS: DOPamine 400mg/250ml 250 ML IV SCH (12:45)
--- NOTE | 2018-10-26 12:59 | General Progress Note ---
Assessment/Plan Problem List: (1) Acute metabolic encephalopathy ICD Codes: G93.41 - Metabolic encephalopathy SNOMED: 74267387, 548803788 Assessment/Plan the pt lacks capacity to make decisions next of keen should makes all the decisions cont bilat restraints haldol prn for agitation rec dnr/dni Subjective Allergies: Coded Allergies: PENICILLINS (Verified Allergy, Unknown, 10/09/18) Subjective the pt is lethargic open eyes agitated at times Objective Last 24 Hour Vital Signs Date Time Temp Pulse Resp B/P (MAP) Pulse Ox O2 Delivery O2 Flow Rate FiO2 10/26/18 12:30 92 6 91/50 (64) 97 10/26/18 12:00 98.0 91 21 93/49 (64) 96 10/26/18 12:00 40 10/26/18 12:00 Mechanical Ventilator 10/26/18 11:30 92 27 96/43 (60) 96 10/26/18 11:06 93/43 10/26/18 11:00 87 28 40 10/26/18 11:00 90 22 93/43 (60) 97 10/26/18 10:30 91 0 89/41 (57) 99 10/26/18 10:00 92 5 102/53 (69) 98 10/26/18 09:30 87 36 40 10/26/18 09:30 100 10/26/18 09:30 89 17 92/39 (56) 96 10/26/18 09:00 87 20 91/38 (55) 99 10/26/18 08:30 85 26 92/42 (59) 100 10/26/18 08:00 40 10/26/18 08:00 Mechanical Ventilator 10/26/18 08:00 98.2 85 19 89/45 (60) 99 10/26/18 08:00 85 10/26/18 07:30 86 20 96/43 (60) 98 10/26/18 07:00 82 20 100/55 (70) 100 10/26/18 06:40 84 33 40 10/26/18 06:30 84 20 91/45 (60) 100 10/26/18 06:00 82 20 89/42 (58) 100 10/26/18 05:30 84 15 94/43 (60) 100 10/26/18 05:00 86 10/26/18 05:00 85 14 79/40 (53) 100 10/26/18 04:55 85 25 40 10/26/18 04:30 85 4 82/49 (60) 100 10/26/18 04:00 98.0 81 20 90/43 (59) 100 10/26/18 04:00 40 10/26/18 04:00 Mechanical Ventilator 10/26/18 03:30 84 25 40 10/26/18 03:30 85 24 90/48 (62) 100 10/26/18 03:00 85 25 95/39 (57) 100 10/26/18 02:30 87 28 98/42 (60) 100 10/26/18 02:00 89 27 109/41 (63) 100 10/26/18 01:30 89 26 40 10/26/18 01:30 87 28 94/45 (61) 100 10/26/18 01:00 89 20 94/49 (64) 100 10/26/18 00:30 91 28 99/45 (63) 100 10/26/18 00:00 40 10/26/18 00:00 97.6 89 27 105/46 (65) 100 10/26/18 00:00 Mechanical Ventilator 10/25/18 23:30 89 29 105/46 (65) 100 10/25/18 23:10 85 30 40 10/25/18 23:00 91 28 105/38 (60) 100 10/25/18 23:00 105/38 10/25/18 22:45 89 31 66/52 (57) 100 10/25/18 22:30 89 21 101/56 (71) 100 10/25/18 22:15 92 25 101/46 (64) 100 10/25/18 22:00 90 25 107/45 (65) 100 10/25/18 21:45 90 26 101/47 (65) 100 10/25/18 21:30 90 26 103/45 (64) 100 10/25/18 21:08 91 28 40 10/25/18 21:00 92 30 101/51 (68) 100 10/25/18 20:45 92 23 98/43 (61) 99 10/25/18 20:30 90 28 96/60 (72) 98 10/25/18 20:00 40 10/25/18 20:00 91 10/25/18 20:00 Mechanical Ventilator 10/25/18 20:00 98.0 92 26 95/60 (72) 98 10/25/18 19:30 94 33 100/58 (72) 98 10/25/18 19:00 96 23 101/41 (61) 100 10/25/18 18:59 90 27 40 10/25/18 18:30 108 22 111/42 (65) 10/25/18 18:00 108 23 115/51 (72) 98 10/25/18 17:30 104 27 118/45 (69) 97 10/25/18 17:00 102 29 97/53 (68) 98 10/25/18 16:52 91 24 40 10/25/18 16:30 93 32 105/36 (59) 97 10/25/18 16:00 Mechanical Ventilator 10/25/18 16:00 90 10/25/18 16:00 40 10/25/18 16:00 97.7 94 32 100/40 (60) 97 10/25/18 15:30 95 31 101/42 (61) 97 10/25/18 15:00 90 29 106/56 (73) 100 10/25/18 14:31 86 30 40 10/25/18 14:30 86 29 98/51 (67) 100 10/25/18 14:00 86 30 91/49 (63) 100 10/25/18 13:30 85 31 98/64 (75) 100 10/25/18 13:00 86 32 105/45 (65) 99 Intake and Output 10/25/18 10/26/18 19:00 07:00 Intake Total 830.05 ml 787.40 ml Output Total 1100 ml 0 ml Balance -269.95 ml 787.40 ml IV Total 430.05 ml 507.40 ml Tube Feeding 400 ml 280 ml Output Urine Total 0 ml 0 ml Stool Total 100 ml Hemodialysis UF 1000 ml Laboratory Tests 10/25/18 17:40: Arterial Blood pH 7.498H, Arterial Blood Partial Pressure CO2 25.1L, Arterial Blood Partial Pressure O2 101.2H, Arterial Blood HCO3 19.0L, Arterial Blood Oxygen Saturation 97.6, Arterial Blood Base Excess -3.0L, Tee Test Positive 10/26/18 05:00: White Blood Count 14.4H, Red Blood Count 3.17L, Hemoglobin 8.6L, Hematocrit 27.7L, Mean Corpuscular Volume 87, Mean Corpuscular Hemoglobin 27.1, Mean Corpuscular Hemoglobin Concent 31.0L, Red Cell Distribution Width 24.2H, Platelet Count 40L, Mean Platelet Volume 9.7, Neutrophils (%) (Auto) , Lymphocytes (%) (Auto) , Monocytes (%) (Auto) , Eosinophils (%) (Auto) , Basophils (%) (Auto) , Differential Total Cells Counted 100, Neutrophils % ( Manual) 83H, Lymphocytes % (Manual) 7L, Monocytes % (Manual) 3, Eosinophils % ( Manual) 0, Basophils % (Manual) 0, Band Neutrophils 7, Platelet Estimate DecreasedL, Platelet Morphology Normal, Polychromasia 2+, Hypochromasia 2+, Anisocytosis 3+, Sodium Level 122L, Potassium Level 3.5, Chloride Level 87L, Carbon Dioxide Level 21, Anion Gap 14, Blood Urea Nitrogen 69H, Creatinine 4.5H , Estimat Glomerular Filtration Rate , Glucose Level 152H, Calcium Level 6.8L, Total Bilirubin 4.8H, Direct Bilirubin 4.0H, Aspartate Amino Transf (AST/SGOT) 182H, Alanine Aminotransferase (ALT/SGPT) 223H, Alkaline Phosphatase 288H, Total Protein 5.2L, Albumin 1.6L, Globulin 3.6, Albumin/Globulin Ratio 0.4L Height (Feet): 5 Height (Inches): 2.00 Weight (Pounds): 148 Danna Sanchez MD Oct 26, 2018 12:59
--- NOTE | 2018-10-26 13:08 | Cardiology Progress Note ---
Assessment/Plan Assessment/Plan cardiology critical care 1. Hypoglycemia secondary to medication. 2. Diabetes mellitus previously. 3. Acute Respiratory inusf / hemoptysis 4. History of ischemic cardiomyopathy with ejection fraction of 40%. 5. Mitral regurgitation, [id number] degree on recent echocardiogram last week. 6. Moderate tricuspid regurgitation. 7. Mild pulmonary hypertension with 43 through 48. 8. Pleural effusions history. 9. Abnormal gastric endoscopy, suspicious for malignancy with submucosal resection. 10. Aortic stenosis. 11. Hyperlipidemia. 12. Prostate cancer. 13. Abnormal facial asymmetry. 14. CAD 15. AMS 16. NSTEMI demand related vs PE related doubt acs 17. acute on chronic renal failure 18. metabolic acidosis 19. hemiparesis 20. hypotension / septic shock 21. Thrombocytopenia 22. abn lft probable shock liver ? 23. profound hyponatremia 24. hyper bilirubinemia 25. Thrombocytopenia echo reviewed has infor post swma and mod mr and ef probabley 35-40% , rv is not enlarge ivc ws enlarged at the time was done v/q was ordered but not done heparin dcd due to thrombocytopenia HIT ordred seen my heme ct head done was not very remarkable need mri when feasible is responsive a will try to see if can taper levophed slowly neuro / gi/ renal / ID / heme input appreciated is on abx adjusted by id bp is littel better on pressor lft down trending but bili remaining elelvated d/w family 10/22/2018 i have made son aware of the poor status we discussed resuscitative effort they wish him to be full code due to yazdanism reason d/w renal for dialysis wbc ias better na is better venous duplex neg remains critical but improved Subjective ROS Limited/Unobtainable: Yes Subjective intubated on 2 pressor , but now follows commnads Objective Last 24 Hour Vital Signs Date Time Temp Pulse Resp B/P (MAP) Pulse Ox O2 Delivery O2 Flow Rate FiO2 10/26/18 12:30 92 6 91/50 (64) 97 10/26/18 12:00 98.0 91 21 93/49 (64) 96 10/26/18 12:00 40 10/26/18 12:00 Mechanical Ventilator 10/26/18 11:30 92 27 96/43 (60) 96 10/26/18 11:06 93/43 10/26/18 11:00 87 28 40 10/26/18 11:00 90 22 93/43 (60) 97 10/26/18 10:30 91 0 89/41 (57) 99 10/26/18 10:00 92 5 102/53 (69) 98 10/26/18 09:30 87 36 40 10/26/18 09:30 100 10/26/18 09:30 89 17 92/39 (56) 96 10/26/18 09:00 87 20 91/38 (55) 99 10/26/18 08:30 85 26 92/42 (59) 100 10/26/18 08:00 40 10/26/18 08:00 Mechanical Ventilator 10/26/18 08:00 98.2 85 19 89/45 (60) 99 10/26/18 08:00 85 10/26/18 07:30 86 20 96/43 (60) 98 10/26/18 07:00 82 20 100/55 (70) 100 10/26/18 06:40 84 33 40 10/26/18 06:30 84 20 91/45 (60) 100 10/26/18 06:00 82 20 89/42 (58) 100 10/26/18 05:30 84 15 94/43 (60) 100 10/26/18 05:00 86 10/26/18 05:00 85 14 79/40 (53) 100 10/26/18 04:55 85 25 40 10/26/18 04:30 85 4 82/49 (60) 100 10/26/18 04:00 98.0 81 20 90/43 (59) 100 10/26/18 04:00 40 10/26/18 04:00 Mechanical Ventilator 10/26/18 03:30 84 25 40 10/26/18 03:30 85 24 90/48 (62) 100 10/26/18 03:00 85 25 95/39 (57) 100 10/26/18 02:30 87 28 98/42 (60) 100 10/26/18 02:00 89 27 109/41 (63) 100 10/26/18 01:30 89 26 40 10/26/18 01:30 87 28 94/45 (61) 100 10/26/18 01:00 89 20 94/49 (64) 100 10/26/18 00:30 91 28 99/45 (63) 100 10/26/18 00:00 40 10/26/18 00:00 97.6 89 27 105/46 (65) 100 10/26/18 00:00 Mechanical Ventilator 10/25/18 23:30 89 29 105/46 (65) 100 10/25/18 23:10 85 30 40 2 23:00 91 28 105/38 (60) 100 10/25/18 23:00 105/38 10/25/18 22:45 89 31 66/52 (57) 100 10/25/18 22:30 89 21 101/56 (71) 100 2 22:15 92 25 101/46 (64) 100 2 22:00 90 25 107/45 (65) 100 10/25/18 21:45 90 26 101/47 (65) 100 10/25/18 21:30 90 26 103/45 (64) 100 10/25/18 21:08 91 28 40 10/25/18 21:00 92 30 101/51 (68) 100 10/25/18 20:45 92 23 98/43 (61) 99 10/25/18 20:30 90 28 96/60 (72) 98 1819 20:00 40 10/25/18 20:00 91 10/25/18 20:00 Mechanical Ventilator 10/25/18 20:00 98.0 92 26 95/60 (72) 98 18/19 19:30 94 33 100/58 (72) 98 18/19 19:00 96 23 101/41 (61) 100 10/25/18 18:59 90 27 40 10/25/18 18:30 108 22 111/42 (65) 218/19 18:00 108 23 115/51 (72) 98 2/18/19 17:30 104 27 118/45 (69) 97 18/19 17:00 102 29 97/53 (68) 98 18/19 16:52 91 24 40 2/18/19 16:30 93 32 105/36 (59) 97 18/19 16:00 Mechanical Ventilator 10/25/18 16:00 90 2/18/19 16:00 40 18/ 16:00 97.7 94 32 100/40 (60) 97 218/19 15:30 95 31 101/42 (61) 97 10/25/18 15:00 90 29 106/56 (73) 100 10/25/18 14:31 86 30 40 10/25/18 14:30 86 29 98/51 (67) 100 10/25/18 14:00 86 30 91/49 (63) 100 10/25/18 13:30 85 31 98/64 (75) 100 10/25/18 13:00 86 32 105/45 (65) 99 General Appearance: no apparent distress, alert Neck: supple Cardiovascular: normal rate Respiratory/Chest: decreased breath sounds Abdomen: non tender Extremities: non-tender Intake and Output 10/25/18 10/26/18 19:00 07:00 Intake Total 830.05 ml 787.40 ml Output Total 1100 ml 0 ml Balance -269.95 ml 787.40 ml IV Total 430.05 ml 507.40 ml Tube Feeding 400 ml 280 ml Output Urine Total 0 ml 0 ml Stool Total 100 ml Hemodialysis UF 1000 ml Laboratory Tests Test 10/25/18 17:40 10/26/18 05:00 Arterial Blood pH 7.498 (7.350-7.450) Arterial Blood Partial Pressure CO2 25.1 mmHg (35.0-45.0) L Arterial Blood Partial Pressure O2 101.2 mmHg (75.0-100.0) H Arterial Blood HCO3 19.0 mmol/L (22.0-26.0) L Arterial Blood Oxygen Saturation 97.6 % (95-100) Arterial Blood Base Excess -3.0 (-2-2) L Tee Test Positive White Blood Count 14.4 K/UL (4.8-10.8) H Red Blood Count 3.17 M/UL (4.70-6.10) L Hemoglobin 8.6 G/DL (14.2-18.0) L Hematocrit 27.7 % (42.0-52.0) L Mean Corpuscular Volume 87 FL (80-99) Mean Corpuscular Hemoglobin 27.1 PG (27.0-31.0) Mean Corpuscular Hemoglobin Concent 31.0 G/DL (32.0-36.0) L Red Cell Distribution Width 24.2 % (11.6-14.8) H Platelet Count 40 K/UL (150-450) L Mean Platelet Volume 9.7 FL (6.5-10.1) Neutrophils (%) (Auto) % (45.0-75.0) Lymphocytes (%) (Auto) % (20.0-45.0) Monocytes (%) (Auto) % (1.0-10.0) Eosinophils (%) (Auto) % (0.0-3.0) Basophils (%) (Auto) % (0.0-2.0) Differential Total Cells Counted 100 Neutrophils % (Manual) 83 % (45-75) H Lymphocytes % (Manual) 7 % (20-45) L Monocytes % (Manual) 3 % (1-10) Eosinophils % (Manual) 0 % (0-3) Basophils % (Manual) 0 % (0-2) Band Neutrophils 7 % (0-8) Platelet Estimate Decreased L Platelet Morphology Normal Polychromasia 2+ Hypochromasia 2+ Anisocytosis 3+ Sodium Level 122 MMOL/L (136-145) L Potassium Level 3.5 MMOL/L (3.5-5.1) Chloride Level 87 MMOL/L (98-107) L Carbon Dioxide Level 21 MMOL/L (21-32) Anion Gap 14 mmol/L (5-15) Blood Urea Nitrogen 69 mg/dL (7-18) H Creatinine 4.5 MG/DL (0.55-1.30) H Estimat Glomerular Filtration Rate mL/min (>60) Glucose Level 152 MG/DL (74-106) H Calcium Level 6.8 MG/DL (8.5-10.1) L Total Bilirubin 4.8 MG/DL (0.2-1.0) H Direct Bilirubin 4.0 MG/DL (0.0-0.3) H Aspartate Amino Transf (AST/SGOT) 182 U/L (15-37) H Alanine Aminotransferase (ALT/SGPT) 223 U/L (12-78) H Alkaline Phosphatase 288 U/L (46-116) H Total Protein 5.2 G/DL (6.4-8.2) L Albumin 1.6 G/DL (3.4-5.0) L Globulin 3.6 g/dL Albumin/Globulin Ratio 0.4 (1.0-2.7) L Microbiology Date/Time Source Procedure Growth Status 10/24/18 01:35 Stool Clostridium difficile Toxin Assay - Final Complete Dg Key MD Oct 26, 2018 13:08
--- NOTE | 2018-10-26 14:09 | NUR ---
NURSE NOTES: Pt tolerated CPAP on PS 8. ABG done, results discussed with Dr Bourne. said to keep pt intubated since pt on levophed 12 mcg/hr. Will continue to monitor.
--- NOTE | 2018-10-26 14:25 | NUR ---
RESPIRATORY NOTE: Put pt backon AC mode per Dr. Bourne's order. RN Krystal @ bedside. No SOB or resp distress note. Will continue to monitor.
--- NOTE | 2018-10-26 14:35 | GI Progress Note ---
Assessment/Plan Problems: (1) Elevated LFTs ICD Codes: R94.5 - Abnormal results of liver function studies SNOMED: 268389010, 767382050 (2) Thrombocytopenia ICD Codes: D69.6 - Thrombocytopenia, unspecified SNOMED: 976008942 (3) Fatty liver ICD Codes: K76.0 - Fatty (change of) liver, not elsewhere classified SNOMED: 652650606 (4) Ventilator dependence ICD Codes: Z99.11 - Dependence on respirator [ventilator] status SNOMED: 616469147 (5) Altered mental status ICD Codes: R41.82 - Altered mental status, unspecified SNOMED: 339286759 Status: unchanged Status Narrative Discussed with Dr. Hawley. Assessment/Plan KUB and us reviewed no dilated CBD plan for extubation today, ST evaluation after no need for ERCP at this time OGTF fu stool for C.diff repeat labs supportive care rectal tube fu labs, trend LFTs The patient was seen and examined at bedside and all new and available data was reviewed in the patients chart. I agree with the above findings, impression and plan. (Patient seen earlier today. Signature stamp does not reflect patient encounter time.). - Baldemar Hawley MD Subjective Subjective limited Objective Last 24 Hour Vital Signs Date Time Temp Pulse Resp B/P (MAP) Pulse Ox O2 Delivery O2 Flow Rate FiO2 10/26/18 14:25 94 23 40 10/26/18 14:00 89 24 90/51 (64) 98 10/26/18 13:30 91 0 93/44 (60) 98 10/26/18 13:00 94 3 93/46 (62) 98 10/26/18 12:50 89 27 40 10/26/18 12:30 92 6 91/50 (64) 97 10/26/18 12:00 91 10/26/18 12:00 98.0 91 21 93/49 (64) 96 10/26/18 12:00 40 10/26/18 12:00 Mechanical Ventilator 10/26/18 11:30 92 27 96/43 (60) 96 10/26/18 11:06 93/43 10/26/18 11:00 87 28 40 10/26/18 11:00 90 22 93/43 (60) 97 10/26/18 10:30 91 0 89/41 (57) 99 10/26/18 10:00 92 5 102/53 (69) 98 10/26/18 09:30 87 36 40 10/26/18 09:30 100 10/26/18 09:30 89 17 92/39 (56) 96 10/26/18 09:00 87 20 91/38 (55) 99 10/26/18 08:30 85 26 92/42 (59) 100 10/26/18 08:00 40 10/26/18 08:00 Mechanical Ventilator 10/26/18 08:00 98.2 85 19 89/45 (60) 99 10/26/18 08:00 85 10/26/18 07:30 86 20 96/43 (60) 98 10/26/18 07:00 82 20 100/55 (70) 100 10/26/18 06:40 84 33 40 10/26/18 06:30 84 20 91/45 (60) 100 10/26/18 06:00 82 20 89/42 (58) 100 10/26/18 05:30 84 15 94/43 (60) 100 10/26/18 05:00 86 10/26/18 05:00 85 14 79/40 (53) 100 10/26/18 04:55 85 25 40 10/26/18 04:30 85 4 82/49 (60) 100 10/26/18 04:00 98.0 81 20 90/43 (59) 100 10/26/18 04:00 40 10/26/18 04:00 Mechanical Ventilator 10/26/18 03:30 84 25 40 10/26/18 03:30 85 24 90/48 (62) 100 10/26/18 03:00 85 25 95/39 (57) 100 10/26/18 02:30 87 28 98/42 (60) 100 10/26/18 02:00 89 27 109/41 (63) 100 10/26/18 01:30 89 26 40 10/26/18 01:30 87 28 94/45 (61) 100 10/26/18 01:00 89 20 94/49 (64) 100 10/26/18 00:30 91 28 99/45 (63) 100 10/26/18 00:00 40 10/26/18 00:00 97.6 89 27 105/46 (65) 100 10/26/18 00:00 Mechanical Ventilator 10/25/18 23:30 89 29 105/46 (65) 100 10/25/18 23:10 85 30 40 10/25/18 23:00 91 28 105/38 (60) 100 10/25/18 23:00 105/38 10/25/18 22:45 89 31 66/52 (57) 100 10/25/18 22:30 89 21 101/56 (71) 100 10/25/18 22:15 92 25 101/46 (64) 100 10/25/18 22:00 90 25 107/45 (65) 100 10/25/18 21:45 90 26 101/47 (65) 100 10/25/18 21:30 90 26 103/45 (64) 100 10/25/18 21:08 91 28 40 10/25/18 21:00 92 30 101/51 (68) 100 10/25/18 20:45 92 23 98/43 (61) 99 10/25/18 20:30 90 28 96/60 (72) 98 10/25/18 20:00 40 10/25/18 20:00 91 10/25/18 20:00 Mechanical Ventilator 10/25/18 20:00 98.0 92 26 95/60 (72) 98 10/25/18 19:30 94 33 100/58 (72) 98 10/25/18 19:00 96 23 101/41 (61) 100 10/25/18 18:59 90 27 40 10/25/18 18:30 108 22 111/42 (65) 10/25/18 18:00 108 23 115/51 (72) 98 10/25/18 17:30 104 27 118/45 (69) 97 19 17:00 102 29 97/53 (68) 98 10/25/18 16:52 91 24 40 10/25/18 16:30 93 32 105/36 (59) 97 10/25/18 16:00 Mechanical Ventilator 10/25/18 16:00 90 10/25/18 16:00 40 10/25/18 16:00 97.7 94 32 100/40 (60) 97 10/25/18 15:30 95 31 101/42 (61) 97 10/25/18 15:00 90 29 106/56 (73) 100 Intake and Output 10/25/18 10/26/18 19:00 07:00 Intake Total 830.05 ml 787.40 ml Output Total 1100 ml 0 ml Balance -269.95 ml 787.40 ml IV Total 430.05 ml 507.40 ml Tube Feeding 400 ml 280 ml Output Urine Total 0 ml 0 ml Stool Total 100 ml Hemodialysis UF 1000 ml Laboratory Tests Test 10/25/18 17:40 10/26/18 05:00 10/26/18 13:43 Arterial Blood pH 7.498 (7.350-7.450) 7.414 (7.350-7.450) Arterial Blood Partial Pressure CO2 25.1 mmHg (35.0-45.0) L 30.4 mmHg (35.0-45.0) L Arterial Blood Partial Pressure O2 101.2 mmHg (75.0-100.0) H 99.3 mmHg (75.0-100.0) Arterial Blood HCO3 19.0 mmol/L (22.0-26.0) L 19.0 mmol/L (22.0-26.0) L Arterial Blood Oxygen Saturation 97.6 % (95-100) 97.1 % (95-100) Arterial Blood Base Excess -3.0 (-2-2) L -4.7 (-2-2) L Tee Test Positive Positive White Blood Count 14.4 K/UL (4.8-10.8) H Red Blood Count 3.17 M/UL (4.70-6.10) L Hemoglobin 8.6 G/DL (14.2-18.0) L Hematocrit 27.7 % (42.0-52.0) L Mean Corpuscular Volume 87 FL (80-99) Mean Corpuscular Hemoglobin 27.1 PG (27.0-31.0) Mean Corpuscular Hemoglobin Concent 31.0 G/DL (32.0-36.0) L Red Cell Distribution Width 24.2 % (11.6-14.8) H Platelet Count 40 K/UL (150-450) L Mean Platelet Volume 9.7 FL (6.5-10.1) Neutrophils (%) (Auto) % (45.0-75.0) Lymphocytes (%) (Auto) % (20.0-45.0) Monocytes (%) (Auto) % (1.0-10.0) Eosinophils (%) (Auto) % (0.0-3.0) Basophils (%) (Auto) % (0.0-2.0) Differential Total Cells Counted 100 Neutrophils % (Manual) 83 % (45-75) H Lymphocytes % (Manual) 7 % (20-45) L Monocytes % (Manual) 3 % (1-10) Eosinophils % (Manual) 0 % (0-3) Basophils % (Manual) 0 % (0-2) Band Neutrophils 7 % (0-8) Platelet Estimate Decreased L Platelet Morphology Normal Polychromasia 2+ Hypochromasia 2+ Anisocytosis 3+ Sodium Level 122 MMOL/L (136-145) L Potassium Level 3.5 MMOL/L (3.5-5.1) Chloride Level 87 MMOL/L (98-107) L Carbon Dioxide Level 21 MMOL/L (21-32) Anion Gap 14 mmol/L (5-15) Blood Urea Nitrogen 69 mg/dL (7-18) H Creatinine 4.5 MG/DL (0.55-1.30) H Estimat Glomerular Filtration Rate mL/min (>60) Glucose Level 152 MG/DL (74-106) H Calcium Level 6.8 MG/DL (8.5-10.1) L Total Bilirubin 4.8 MG/DL (0.2-1.0) H Direct Bilirubin 4.0 MG/DL (0.0-0.3) H Aspartate Amino Transf (AST/SGOT) 182 U/L (15-37) H Alanine Aminotransferase (ALT/SGPT) 223 U/L (12-78) H Alkaline Phosphatase 288 U/L (46-116) H Total Protein 5.2 G/DL (6.4-8.2) L Albumin 1.6 G/DL (3.4-5.0) L Globulin 3.6 g/dL Albumin/Globulin Ratio 0.4 (1.0-2.7) L Height (Feet): 5 Height (Inches): 2.00 Weight (Pounds): 148 General Appearance: WD/WN, no apparent distress, alert Cardiovascular: normal rate Respiratory/Chest: normal breath sounds, no respiratory distress, other - intubated Abdominal Exam: normal bowel sounds, non tender, soft, other - NGT Extremities: non-tender Vijay Pena [employer] Oct 26, 2018 14:35
--- NOTE | 2018-10-26 14:40 | Infectious Diseases Prog Note ---
Assessment/Plan Assessment/Plan A) 1) sepsis, shock, leukocytosis, pna, ? fungemia, ? c.diff., fungemia risk, respiratory failure - leukocytosis better - remains on pressors but less - more alert to me, opens eyes - c.diff. - negative - chest x-ray with increased edema and effusion 2) respiratory failure, vent, dm, htn, fred, HD, nstemi, anemia, cad, chf, hyponatremia 3) , pvd, cidp, prostate ca, ckd 4) sh-neg, fh-nc, mar noted, orders and notes reviewed 5) allergies - pcn 6) d/w RN P) 1) meropenem, vancomycin and diflcuan, discontinue po vancomycin 2) f/u on cultures, labs and chest x-ray 3) continue treatment per primary team and consultants 4) condition critical 5) continue icu supportive care Subjective Constitutional: Reports: fatigue, other - on vent, + pressors but less, more alert ; Denies: fever HEENT: Reports: congestion Respiratory: Reports: shortness of breath Cardiovascular: Reports: other - on pressors Gastrointestinal/Abdominal: Denies: nausea, vomiting, diarrhea Genitourinary: Reports: other - no cooper Neurologic: Reports: weakness, other - slt more alert Psychiatric: Reports: other - na Skin: Denies: rash Hematologic: Denies: bleeding Musculoskeletal: Reports: other - na Allergies: Coded Allergies: PENICILLINS (Verified Allergy, Unknown, 10/09/18) Objective Vital Signs Last 24 Hour Vital Signs Date Time Temp Pulse Resp B/P (MAP) Pulse Ox O2 Delivery O2 Flow Rate FiO2 10/26/18 14:25 94 23 40 10/26/18 14:00 89 24 90/51 (64) 98 10/26/18 13:30 91 0 93/44 (60) 98 10/26/18 13:00 94 3 93/46 (62) 98 10/26/18 12:50 89 27 40 10/26/18 12:30 92 6 91/50 (64) 97 10/26/18 12:00 91 10/26/18 12:00 98.0 91 21 93/49 (64) 96 10/26/18 12:00 40 10/26/18 12:00 Mechanical Ventilator 10/26/18 11:30 92 27 96/43 (60) 96 10/26/18 11:06 93/43 10/26/18 11:00 87 28 40 10/26/18 11:00 90 22 93/43 (60) 97 10/26/18 10:30 91 0 89/41 (57) 99 10/26/18 10:00 92 5 102/53 (69) 98 10/26/18 09:30 87 36 40 10/26/18 09:30 100 10/26/18 09:30 89 17 92/39 (56) 96 10/26/18 09:00 87 20 91/38 (55) 99 10/26/18 08:30 85 26 92/42 (59) 100 10/26/18 08:00 40 10/26/18 08:00 Mechanical Ventilator 10/26/18 08:00 98.2 85 19 89/45 (60) 99 10/26/18 08:00 85 10/26/18 07:30 86 20 96/43 (60) 98 10/26/18 07:00 82 20 100/55 (70) 100 10/26/18 06:40 84 33 40 10/26/18 06:30 84 20 91/45 (60) 100 10/26/18 06:00 82 20 89/42 (58) 100 10/26/18 05:30 84 15 94/43 (60) 100 10/26/18 05:00 86 10/26/18 05:00 85 14 79/40 (53) 100 10/26/18 04:55 85 25 40 10/26/18 04:30 85 4 82/49 (60) 100 10/26/18 04:00 98.0 81 20 90/43 (59) 100 10/26/18 04:00 40 10/26/18 04:00 Mechanical Ventilator 10/26/18 03:30 84 25 40 10/26/18 03:30 85 24 90/48 (62) 100 10/26/18 03:00 85 25 95/39 (57) 100 10/26/18 02:30 87 28 98/42 (60) 100 10/26/18 02:00 89 27 109/41 (63) 100 10/26/18 01:30 89 26 40 10/26/18 01:30 87 28 94/45 (61) 100 10/26/18 01:00 89 20 94/49 (64) 100 10/26/18 00:30 91 28 99/45 (63) 100 10/26/18 00:00 40 10/26/18 00:00 97.6 89 27 105/46 (65) 100 10/26/18 00:00 Mechanical Ventilator 10/25/18 23:30 89 29 105/46 (65) 100 10/25/18 23:10 85 30 40 10/25/18 23:00 91 28 105/38 (60) 100 10/25/18 23:00 105/38 10/25/18 22:45 89 31 66/52 (57) 100 10/25/18 22:30 89 21 101/56 (71) 100 10/25/18 22:15 92 25 101/46 (64) 100 10/25/18 22:00 90 25 107/45 (65) 100 10/25/18 21:45 90 26 101/47 (65) 100 10/25/18 21:30 90 26 103/45 (64) 100 10/25/18 21:08 91 28 40 10/25/18 21:00 92 30 101/51 (68) 100 10/25/18 20:45 92 23 98/43 (61) 99 10/25/18 20:30 90 28 96/60 (72) 98 10/25/18 20:00 40 10/25/18 20:00 91 10/25/18 20:00 Mechanical Ventilator 10/25/18 20:00 98.0 92 26 95/60 (72) 98 10/25/18 19:30 94 33 100/58 (72) 98 10/25/18 19:00 96 23 101/41 (61) 100 10/25/18 18:59 90 27 40 10/25/18 18:30 108 22 111/42 (65) 18 18:00 108 23 115/51 (72) 98 10/25/18 17:30 104 27 118/45 (69) 97 10/25/18 17:00 102 29 97/53 (68) 98 10/25/18 16:52 91 24 40 10/25/ 16:30 93 32 105/36 (59) 97 10/25/18 16:00 Mechanical Ventilator 10/25/18 16:00 90 10/25/18 16:00 40 10/25/18 16:00 97.7 94 32 100/40 (60) 97 10/25/18 15:30 95 31 101/42 (61) 97 10/25/18 15:00 90 29 106/56 (73) 100 Height (Feet): 5 Height (Inches): 2.00 Weight (Pounds): 148 General Appearance: other - + vent, + pressors HEENT: normocephalic, atraumatic, anicteric, no JVD, other - oral - intubated Respiratory/Chest: crackles/rales, rhonchi - bilaterally Cardiovascular: normal rate, regular rhythm, no gallop/murmur, no JVD Abdomen: normal bowel sounds, soft, non tender, no organomegaly, non distended Genitourinary: other - no cooper Extremities: no cyanosis Skin: no rash Neurologic/Psychiatric: other - weak, more alert Lymphatic: no neck adenopathy Musculoskeletal: no effusion Objective 10/21/18 - chest x-ray - Findings: Bilateral small pleural effusions are unchanged. Stable satisfactory positions of endotracheal tube, right external jugular temporary dialysis catheter, left arm PICC. Interim placement of a nasogastric tube, tip which projects beyond the edge of image, documented to be intragastric on an earlier abdominal radiograph. Previously demonstrated right basilar interstitial opacities appear improved Impression: Interim enteric feeding tube placement. Slight clearing of previously demonstrated right basilar interstitial opacities. 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 Stable left, increasing right pleural effusions, both small Satisfactory tube and line positions, as described Microbiology Date/Time Source Procedure Growth Status 10/20/18 06:10 Blood Blood Culture - Final NO GROWTH AFTER 5 DAYS Complete 10/20/18 10:00 Sputum Induced Gram Stain - Final Complete 10/20/18 10:00 Sputum Culture - Final Ana Laura Species Usual Respiratory Melany Complete 10/24/18 01:35 Stool Clostridium difficile Toxin Assay - Final Complete Microbiology Date/Time Source Procedure Growth Status 10/24/18 01:35 Stool Clostridium difficile Toxin Assay - Final Complete Laboratory Tests Test 10/25/18 17:40 10/26/18 05:00 10/26/18 13:43 Arterial Blood pH 7.498 (7.350-7.450) 7.414 (7.350-7.450) Arterial Blood Partial Pressure CO2 25.1 mmHg (35.0-45.0) L 30.4 mmHg (35.0-45.0) L Arterial Blood Partial Pressure O2 101.2 mmHg (75.0-100.0) H 99.3 mmHg (75.0-100.0) Arterial Blood HCO3 19.0 mmol/L (22.0-26.0) L 19.0 mmol/L (22.0-26.0) L Arterial Blood Oxygen Saturation 97.6 % (95-100) 97.1 % (95-100) Arterial Blood Base Excess -3.0 (-2-2) L -4.7 (-2-2) L Tee Test Positive Positive White Blood Count 14.4 K/UL (4.8-10.8) H Red Blood Count 3.17 M/UL (4.70-6.10) L Hemoglobin 8.6 G/DL (14.2-18.0) L Hematocrit 27.7 % (42.0-52.0) L Mean Corpuscular Volume 87 FL (80-99) Mean Corpuscular Hemoglobin 27.1 PG (27.0-31.0) Mean Corpuscular Hemoglobin Concent 31.0 G/DL (32.0-36.0) L Red Cell Distribution Width 24.2 % (11.6-14.8) H Platelet Count 40 K/UL (150-450) L Mean Platelet Volume 9.7 FL (6.5-10.1) Neutrophils (%) (Auto) % (45.0-75.0) Lymphocytes (%) (Auto) % (20.0-45.0) Monocytes (%) (Auto) % (1.0-10.0) Eosinophils (%) (Auto) % (0.0-3.0) Basophils (%) (Auto) % (0.0-2.0) Differential Total Cells Counted 100 Neutrophils % (Manual) 83 % (45-75) H Lymphocytes % (Manual) 7 % (20-45) L Monocytes % (Manual) 3 % (1-10) Eosinophils % (Manual) 0 % (0-3) Basophils % (Manual) 0 % (0-2) Band Neutrophils 7 % (0-8) Platelet Estimate Decreased L Platelet Morphology Normal Polychromasia 2+ Hypochromasia 2+ Anisocytosis 3+ Sodium Level 122 MMOL/L (136-145) L Potassium Level 3.5 MMOL/L (3.5-5.1) Chloride Level 87 MMOL/L (98-107) L Carbon Dioxide Level 21 MMOL/L (21-32) Anion Gap 14 mmol/L (5-15) Blood Urea Nitrogen 69 mg/dL (7-18) H Creatinine 4.5 MG/DL (0.55-1.30) H Estimat Glomerular Filtration Rate mL/min (>60) Glucose Level 152 MG/DL (74-106) H Calcium Level 6.8 MG/DL (8.5-10.1) L Total Bilirubin 4.8 MG/DL (0.2-1.0) H Direct Bilirubin 4.0 MG/DL (0.0-0.3) H Aspartate Amino Transf (AST/SGOT) 182 U/L (15-37) H Alanine Aminotransferase (ALT/SGPT) 223 U/L (12-78) H Alkaline Phosphatase 288 U/L (46-116) H Total Protein 5.2 G/DL (6.4-8.2) L Albumin 1.6 G/DL (3.4-5.0) L Globulin 3.6 g/dL Albumin/Globulin Ratio 0.4 (1.0-2.7) L Current Medications Medications (Trade) Dose Ordered Sig/Ashely Route PRN Reason Start Time Stop Time Status Last Admin Dose Admin Acetaminophen (Tylenol) 650 mg Q6H PRN ORAL Mild Pain/Temp > 100.5 10/18/18 16:30 11/08/18 04:23 Albumin Human 100 ml @ 200 mls/hr PRN PRN IV sbp<90 during hd 10/27/18 14:15 10/27/18 23:59 Aspirin (Ecotrin) 81 mg DAILY ORAL 10/19/18 09:00 11/09/18 08:59 10/24/18 09:54 Atorvastatin Calcium (Lipitor) 40 mg BEDTIME ORAL 10/18/18 21:00 11/09/18 20:59 10/25/18 21:13 Calcium Carbonate (Tums) 500 mg BID GT 10/20/18 18:00 11/09/18 08:59 10/26/18 08:20 Chlorhexidine Gluconate (Anai-Hex 2%) 1 applic DAILY@2000 TOPIC 10/18/18 20:00 11/12/18 19:59 10/25/18 20:00 Dextrose (Dextrose 50%) 25 ml Q30M PRN IV Hypoglycemia 10/23/18 08:15 11/22/18 08:14 Dextrose (Dextrose 50%) 50 ml Q30M PRN IV Hypoglycemia 10/23/18 08:15 11/22/18 08:14 Dobutamine HCl 250 ml @ 10.05 mls/ hr Q24H IV 10/19/18 11:40 11/18/18 11:39 10/22/18 12:43 Dopamine HCl/ Dextrose 250 ml @ 0 mls/hr Q24H IV 10/19/18 12:45 11/18/18 12:44 10/20/18 17:43 Fluconazole/ Sodium Chloride 100 ml @ 100 mls/hr Q24H IV 10/22/18 20:00 10/29/18 19:59 10/25/18 20:00 Haloperidol Lactate (Haldol) 5 mg Q6H PRN IM Agitation 10/18/18 17:00 11/17/18 16:59 Heparin Sodium (Porcine) (Heparin Sod 1000 units/ml 10ml) 500 unit ONCE PRN IV dialysis 10/27/18 14:15 10/27/18 23:59 Insulin Aspart (NovoLOG) EVERY 4 HOURS SUBQ 10/23/18 09:00 11/22/18 08:59 10/26/18 08:23 Latanoprost (Xalatan) 1 drop BEDTIME BOTH EYES 10/18/18 21:00 11/10/18 20:59 10/25/18 21:13 Meropenem 500 mg/ Sodium Chloride 50 ml @ 100 mls/hr Q24HRS IVPB 10/25/18 00:00 10/30/18 00:00 10/26/18 00:00 Norepinephrine Bitartrate 16 mg/ Dextrose 500 ml @ 0 mls/hr Q24H IV 10/20/18 18:00 11/19/18 17:59 10/25/18 23:00 Ondansetron HCl (Zofran) 4 mg Q8H PRN IVP Nausea & Vomiting 10/18/18 17:00 11/17/18 16:59 Pantoprazole (Protonix) 40 mg ACBREAKFAST ORAL 10/19/18 06:30 11/09/18 08:59 10/26/18 05:30 Promethazine HCl (Phenergan Plain) 6.25 mg Q6H PRN ORAL For Cough 10/18/18 16:45 11/10/18 04:32 Vancomycin HCl (Firvanq) 125 mg FOUR TIMES A DAY ORAL 10/22/18 21:00 10/29/18 20:59 10/26/18 13:01 Vancomycin HCl (Vanco rx to dose) 1 ea DAILY PRN MISC Per rx protocol 10/19/18 23:30 11/18/18 23:29 Vasopressin 100 units/Sodium Chloride 100 ml @ 2.4 mls/hr Q24H IV 10/22/18 15:00 11/21/18 14:59 10/25/18 15:13 Roseline Figueroa MD Oct 26, 2018 14:40
[2018-10-26] MEDS: Vasopressin 100 UNITS in NS 95 ML IV SCH (15:00)
--- NOTE | 2018-10-26 15:00 | Nephrology Progress Note ---
Assessment/Plan Problem List: (1) Acute kidney injury superimposed on CKD Assessment: no recovery (2) CHF (congestive heart failure) (3) NSTEMI (non-ST elevated myocardial infarction) (4) Hypotension (5) Pneumonia (6) Hypoglycemia (7) Respiratory failure, acute (8) Sepsis (9) Hyponatremia Assessment: worse Assessment POOR PROGNOSIS Plan HD tomorrow Discussed with RN continue pressors abxs per ID follow labs Vent support Discussed with family Subjective Subjective pt was seen in ICU more alert Objective Objective Last 24 Hour Vital Signs Date Time Temp Pulse Resp B/P (MAP) Pulse Ox O2 Delivery O2 Flow Rate FiO2 10/26/18 14:25 94 23 40 10/26/18 14:00 89 24 90/51 (64) 98 10/26/18 13:30 91 0 93/44 (60) 98 10/26/18 13:00 94 3 93/46 (62) 98 10/26/18 12:50 89 27 40 10/26/18 12:30 92 6 91/50 (64) 97 10/26/18 12:00 91 10/26/18 12:00 98.0 91 21 93/49 (64) 96 10/26/18 12:00 40 10/26/18 12:00 Mechanical Ventilator 10/26/18 11:30 92 27 96/43 (60) 96 10/26/18 11:06 93/43 10/26/18 11:00 87 28 40 10/26/18 11:00 90 22 93/43 (60) 97 10/26/18 10:30 91 0 89/41 (57) 99 10/26/18 10:00 92 5 102/53 (69) 98 10/26/18 09:30 87 36 40 10/26/18 09:30 100 10/26/18 09:30 89 17 92/39 (56) 96 10/26/18 09:00 87 20 91/38 (55) 99 10/26/18 08:30 85 26 92/42 (59) 100 10/26/18 08:00 40 10/26/18 08:00 Mechanical Ventilator 10/26/18 08:00 98.2 85 19 89/45 (60) 99 10/26/18 08:00 85 10/26/18 07:30 86 20 96/43 (60) 98 10/26/18 07:00 82 20 100/55 (70) 100 10/26/18 06:40 84 33 40 10/26/18 06:30 84 20 91/45 (60) 100 10/26/18 06:00 82 20 89/42 (58) 100 10/26/18 05:30 84 15 94/43 (60) 100 10/26/18 05:00 86 10/26/18 05:00 85 14 79/40 (53) 100 10/26/18 04:55 85 25 40 10/26/18 04:30 85 4 82/49 (60) 100 10/26/18 04:00 98.0 81 20 90/43 (59) 100 10/26/18 04:00 40 10/26/18 04:00 Mechanical Ventilator 10/26/18 03:30 84 25 40 10/26/18 03:30 85 24 90/48 (62) 100 10/26/18 03:00 85 25 95/39 (57) 100 10/26/18 02:30 87 28 98/42 (60) 100 10/26/18 02:00 89 27 109/41 (63) 100 10/26/18 01:30 89 26 40 10/26/18 01:30 87 28 94/45 (61) 100 10/26/18 01:00 89 20 94/49 (64) 100 10/26/18 00:30 91 28 99/45 (63) 100 10/26/18 00:00 40 10/26/18 00:00 97.6 89 27 105/46 (65) 100 10/26/18 00:00 Mechanical Ventilator 10/25/18 23:30 89 29 105/46 (65) 100 10/25/18 23:10 85 30 40 10/25/18 23:00 91 28 105/38 (60) 100 10/25/18 23:00 105/38 10/25/18 22:45 89 31 66/52 (57) 100 10/25/18 22:30 89 21 101/56 (71) 100 10/25/18 22:15 92 25 101/46 (64) 100 10/25/18 22:00 90 25 107/45 (65) 100 10/25/18 21:45 90 26 101/47 (65) 100 10/25/18 21:30 90 26 103/45 (64) 100 10/25/18 21:08 91 28 40 10/25/18 21:00 92 30 101/51 (68) 100 10/25/18 20:45 92 23 98/43 (61) 99 10/25/18 20:30 90 28 96/60 (72) 98 10/25/18 20:00 40 10/25/18 20:00 91 10/25/18 20:00 Mechanical Ventilator 10/25/18 20:00 98.0 92 26 95/60 (72) 98 10/25/18 19:30 94 33 100/58 (72) 98 10/25/18 19:00 96 23 101/41 (61) 100 10/25/18 18:59 90 27 40 10/25/18 18:30 108 22 111/42 (65) 10/25/18 18:00 108 23 115/51 (72) 98 10/25/18 17:30 104 27 118/45 (69) 97 10/25/18 17:00 102 29 97/53 (68) 98 10/25/18 16:52 91 24 40 10/25/18 16:30 93 32 105/36 (59) 97 10/25/18 16:00 Mechanical Ventilator 10/25/18 16:00 90 10/25/18 16:00 40 10/25/18 16:00 97.7 94 32 100/40 (60) 97 10/25/18 15:30 95 31 101/42 (61) 97 10/25/18 15:00 90 29 106/56 (73) 100 Intake and Output 10/25/18 10/26/18 19:00 07:00 Intake Total 830.05 ml 787.40 ml Output Total 1100 ml 0 ml Balance -269.95 ml 787.40 ml IV Total 430.05 ml 507.40 ml Tube Feeding 400 ml 280 ml Output Urine Total 0 ml 0 ml Stool Total 100 ml Hemodialysis UF 1000 ml Laboratory Tests 10/25/18 17:40: Arterial Blood pH 7.498H, Arterial Blood Partial Pressure CO2 25.1L, Arterial Blood Partial Pressure O2 101.2H, Arterial Blood HCO3 19.0L, Arterial Blood Oxygen Saturation 97.6, Arterial Blood Base Excess -3.0L, Tee Test Positive 10/26/18 05:00: White Blood Count 14.4H, Red Blood Count 3.17L, Hemoglobin 8.6L, Hematocrit 27.7L, Mean Corpuscular Volume 87, Mean Corpuscular Hemoglobin 27.1, Mean Corpuscular Hemoglobin Concent 31.0L, Red Cell Distribution Width 24.2H, Platelet Count 40L, Mean Platelet Volume 9.7, Neutrophils (%) (Auto) , Lymphocytes (%) (Auto) , Monocytes (%) (Auto) , Eosinophils (%) (Auto) , Basophils (%) (Auto) , Differential Total Cells Counted 100, Neutrophils % ( Manual) 83H, Lymphocytes % (Manual) 7L, Monocytes % (Manual) 3, Eosinophils % ( Manual) 0, Basophils % (Manual) 0, Band Neutrophils 7, Platelet Estimate DecreasedL, Platelet Morphology Normal, Polychromasia 2+, Hypochromasia 2+, Anisocytosis 3+, Sodium Level 122L, Potassium Level 3.5, Chloride Level 87L, Carbon Dioxide Level 21, Anion Gap 14, Blood Urea Nitrogen 69H, Creatinine 4.5H , Estimat Glomerular Filtration Rate , Glucose Level 152H, Calcium Level 6.8L, Total Bilirubin 4.8H, Direct Bilirubin 4.0H, Aspartate Amino Transf (AST/SGOT) 182H, Alanine Aminotransferase (ALT/SGPT) 223H, Alkaline Phosphatase 288H, Total Protein 5.2L, Albumin 1.6L, Globulin 3.6, Albumin/Globulin Ratio 0.4L 10/26/18 13:43: Arterial Blood pH 7.414, Arterial Blood Partial Pressure CO2 30.4L, Arterial Blood Partial Pressure O2 99.3, Arterial Blood HCO3 19.0L, Arterial Blood Oxygen Saturation 97.1, Arterial Blood Base Excess -4.7L, Tee Test Positive Height (Feet): 5 Height (Inches): 2.00 Weight (Pounds): 148 Cardiovascular: normal rate Respiratory/Chest: rhonchi - bilaterally Extremities: severe edema Mario Porter MD Oct 26, 2018 15:00
--- NOTE | 2018-10-26 15:17 | NUR ---
NURSE NOTES: Called [facility] spoke to Jair to schedule dialysis for tomorrow. Family visiting at bedside. No acute distress. Will continue to monitor.
--- NOTE | 2018-10-26 16:56 | General Progress Note ---
Assessment/Plan Assessment/Plan ASSESSMENT/RECS: # Thrombocytopenia -- multiple etiologies possible, has been on heparin gtt which was discontinued on 10/24 --> HIT antibody has been ordered and pending --> smear has been reviewed, no e/o schistocytes is noted --> duplex lower extremities ordered and is negative for dvt --> anemia panel has been reviewed and is negative for hemolysis --> obtain a flow cytometry to r/o leukemia/mds (has been ordered) results to appear under "pathology" # Leukocytosis likely related to underlying sepsis, flow cytometry is negative for underlying malignancy/no leukemia noted, no distinct immunophentype is noted --> r/o other underlying cuases --> on abx as per id, antifungals --> if stable, can consider a bone marrow biopsy given nucleated cells on the peripheral smear that are persistent # Respiratory failure on a vent --> as per pulm management # Hyponatremia on ivf as per nephro # Colonic distention, abnormal liver function tests. --> as per gi # ESRD on hd as per [facility] --> on hd The timing of this note does not necessarily reflect the time of the patient was seen. Greatly appreciate consultation! Subjective HEENT: Denies: no symptoms, eye pain, blurred vision, tearing, double vision, ear pain, ear discharge, nose pain, nose congestion, throat pain, throat swelling, mouth pain, mouth swelling, other Cardiovascular: Denies: no symptoms, chest pain, edema, irregular heart rate, lightheadedness, palpitations, syncope, other Respiratory: Denies: no symptoms, cough, orthopnea, shortness of breath, SOB with excertion, SOB at rest, sputum, stridor, wheezing, other Genitourinary: Denies: no symptoms, burning, discharge, frequency, flank pain, hematuria, incontinence, pain, urgency, other Neurologic/Psychiatric: Denies: no symptoms, anxiety, depressed, emotional problems, headache, numbness, paresthesia, pre-existing deficit, seizure, tingling, tremors, weakness, other Endocrine: Denies: no symptoms, excessive sweating, flushing, intolerance to cold, intolerance to heat, increased hunger, increased thirst, increased urine, unexplained weight gain, unexplained weight loss, other Hematologic/Lymphatic: Denies: no symptoms, anemia, easy bleeding, easy bruising, other Allergies: Coded Allergies: PENICILLINS (Verified Allergy, Unknown, 10/09/18) Subjective 10/25: pt was seen in ICU , more alert today, no acute events reported. plt 64, wbc 19, flow cytometry ordered, off heparin gtt 10/26: in icu still, per rn is off heparin gtt, currently symptoms are better, no fevers or chills noted, on pressor but less Objective Last 24 Hour Vital Signs Date Time Temp Pulse Resp B/P (MAP) Pulse Ox O2 Delivery O2 Flow Rate FiO2 10/26/18 16:30 83 22 82/50 (61) 100 10/26/18 16:00 40 10/26/18 16:00 Mechanical Ventilator 10/26/18 16:00 98.2 84 22 97/43 (61) 100 10/26/18 15:30 87 14 97/40 (59) 100 10/26/18 15:00 87 0 83/48 (60) 100 10/26/18 14:30 86 23 93/45 (61) 100 10/26/18 14:25 94 23 40 10/26/18 14:00 89 24 90/51 (64) 98 10/26/18 13:30 91 0 93/44 (60) 98 10/26/18 13:00 94 3 93/46 (62) 98 10/26/18 12:50 89 27 40 10/26/18 12:30 92 6 91/50 (64) 97 10/26/18 12:00 91 10/26/18 12:00 98.0 91 21 93/49 (64) 96 10/26/18 12:00 40 10/26/18 12:00 Mechanical Ventilator 10/26/18 11:30 92 27 96/43 (60) 96 10/26/18 11:06 93/43 10/26/18 11:00 87 28 40 10/26/18 11:00 90 22 93/43 (60) 97 10/26/18 10:30 91 0 89/41 (57) 99 10/26/18 10:00 92 5 102/53 (69) 98 10/26/18 09:30 87 36 40 10/26/18 09:30 100 10/26/18 09:30 89 17 92/39 (56) 96 10/26/18 09:00 87 20 91/38 (55) 99 10/26/18 08:30 85 26 92/42 (59) 100 10/26/18 08:00 40 10/26/18 08:00 Mechanical Ventilator 10/26/18 08:00 98.2 85 19 89/45 (60) 99 10/26/18 08:00 85 10/26/18 07:30 86 20 96/43 (60) 98 10/26/18 07:00 82 20 100/55 (70) 100 10/26/18 06:40 84 33 40 10/26/18 06:30 84 20 91/45 (60) 100 10/26/18 06:00 82 20 89/42 (58) 100 10/26/18 05:30 84 15 94/43 (60) 100 10/26/18 05:00 86 10/26/18 05:00 85 14 79/40 (53) 100 10/26/18 04:55 85 25 40 10/26/18 04:30 85 4 82/49 (60) 100 10/26/18 04:00 98.0 81 20 90/43 (59) 100 10/26/18 04:00 40 10/26/18 04:00 Mechanical Ventilator 10/26/18 03:30 84 25 40 10/26/18 03:30 85 24 90/48 (62) 100 10/26/18 03:00 85 25 95/39 (57) 100 10/26/18 02:30 87 28 98/42 (60) 100 10/26/18 02:00 89 27 109/41 (63) 100 10/26/18 01:30 89 26 40 10/26/18 01:30 87 28 94/45 (61) 100 10/26/18 01:00 89 20 94/49 (64) 100 10/26/18 00:30 91 28 99/45 (63) 100 10/26/18 00:00 40 10/26/18 00:00 97.6 89 27 105/46 (65) 100 10/26/18 00:00 Mechanical Ventilator 10/25/18 23:30 89 29 105/46 (65) 100 10/25/18 23:10 85 30 40 10/25/18 23:00 91 28 105/38 (60) 100 10/25/18 23:00 105/38 10/25/18 22:45 89 31 66/52 (57) 100 10/25/18 22:30 89 21 101/56 (71) 100 10/25/18 22:15 92 25 101/46 (64) 100 10/25/18 22:00 90 25 107/45 (65) 100 10/25/18 21:45 90 26 101/47 (65) 100 10/25/18 21:30 90 26 103/45 (64) 100 10/25/18 21:08 91 28 40 10/25/18 21:00 92 30 101/51 (68) 100 10/25/18 20:45 92 23 98/43 (61) 99 10/25/18 20:30 90 28 96/60 (72) 98 10/25/18 20:00 40 10/25/18 20:00 91 10/25/18 20:00 Mechanical Ventilator 10/25/18 20:00 98.0 92 26 95/60 (72) 98 10/25/18 19:30 94 33 100/58 (72) 98 10/25/18 19:00 96 23 101/41 (61) 100 10/25/18 18:59 90 27 40 10/25/18 18:30 108 22 111/42 (65) 10/25/18 18:00 108 23 115/51 (72) 98 10/25/18 17:30 104 27 118/45 (69) 97 10/25/18 17:00 102 29 97/53 (68) 98 Intake and Output 10/25/18 10/26/18 19:00 07:00 Intake Total 830.05 ml 787.40 ml Output Total 1100 ml 0 ml Balance -269.95 ml 787.40 ml IV Total 430.05 ml 507.40 ml Tube Feeding 400 ml 280 ml Output Urine Total 0 ml 0 ml Stool Total 100 ml Hemodialysis UF 1000 ml Laboratory Tests 10/25/18 17:40: Arterial Blood pH 7.498H, Arterial Blood Partial Pressure CO2 25.1L, Arterial Blood Partial Pressure O2 101.2H, Arterial Blood HCO3 19.0L, Arterial Blood Oxygen Saturation 97.6, Arterial Blood Base Excess -3.0L, Tee Test Positive 10/26/18 05:00: White Blood Count 14.4H, Red Blood Count 3.17L, Hemoglobin 8.6L, Hematocrit 27.7L, Mean Corpuscular Volume 87, Mean Corpuscular Hemoglobin 27.1, Mean Corpuscular Hemoglobin Concent 31.0L, Red Cell Distribution Width 24.2H, Platelet Count 40L, Mean Platelet Volume 9.7, Neutrophils (%) (Auto) , Lymphocytes (%) (Auto) , Monocytes (%) (Auto) , Eosinophils (%) (Auto) , Basophils (%) (Auto) , Differential Total Cells Counted 100, Neutrophils % ( Manual) 83H, Lymphocytes % (Manual) 7L, Monocytes % (Manual) 3, Eosinophils % ( Manual) 0, Basophils % (Manual) 0, Band Neutrophils 7, Platelet Estimate DecreasedL, Platelet Morphology Normal, Polychromasia 2+, Hypochromasia 2+, Anisocytosis 3+, Sodium Level 122L, Potassium Level 3.5, Chloride Level 87L, Carbon Dioxide Level 21, Anion Gap 14, Blood Urea Nitrogen 69H, Creatinine 4.5H , Estimat Glomerular Filtration Rate , Glucose Level 152H, Calcium Level 6.8L, Total Bilirubin 4.8H, Direct Bilirubin 4.0H, Aspartate Amino Transf (AST/SGOT) 182H, Alanine Aminotransferase (ALT/SGPT) 223H, Alkaline Phosphatase 288H, Total Protein 5.2L, Albumin 1.6L, Globulin 3.6, Albumin/Globulin Ratio 0.4L 10/26/18 13:43: Arterial Blood pH 7.414, Arterial Blood Partial Pressure CO2 30.4L, Arterial Blood Partial Pressure O2 99.3, Arterial Blood HCO3 19.0L, Arterial Blood Oxygen Saturation 97.1, Arterial Blood Base Excess -4.7L, Tee Test Positive Height (Feet): 5 Height (Inches): 2.00 Weight (Pounds): 148 Objective PHYSICAL EXAMINATION: VITAL SIGNS: reviewed HEENT: Normocephalic and atraumatic. Mild scleral icterus. NECK: Supple. On vent CARDIOVASCULAR: Tachycardic. Regular rr, Plus S1, S2. There is a soft murmur at the left sternal border. LUNGS: ++ vent ABDOMEN: Distended, tympanic to percussion. Hypoactive bowel sounds. EXTREMITIES: No cyanosis, no clubbing, no edema. NEUROLOGIC: More alert Rah Ferreira MD Oct 26, 2018 16:56
--- NOTE | 2018-10-26 17:06 | NUR ---
NURSE NOTES: Turned and repositioned pt. Changed pads underneath pt, extremities edematous and weepy. Will continue to monitor.
[2018-10-26] MEDS: Norepinephrine Bitartrate 16 MG in D5W 500ml 484 ML IV SCH (18:51)
--- NOTE | 2018-10-26 19:08 | NUR ---
HAND-OFF: Report given to Nabor OSMAN.
--- NOTE | 2018-10-26 19:30 | NUR ---
NURSE NOTES: Received pt in no apparent distress. Opens eyes spontaneously and tracks, remains orally intubated and appears to be tolerating current vent settings; with fiO2 .40, saturating 100%. NSR on the monitor but BP still labile. Continues on Levophed gtt at 14mcg/min, infusing via PICC on KIM. OGT in place and TF with Nepro running at 40ml/h with 0 residuals. Right IJ cem cath intact; pt for HD manisha. Pt has generalized edema and oozing serous fluid from arms and legs. Rectal tube in place. Skin on upper back reddish, thin with denuded blisters. Skin erosion on buttocks noted. Denuded blisters noted on left and right ankle and right foot. Anuric.Scrotum edematous. Will continue to monitor BP and titrate Levophed accordingly.
[2018-10-26] MEDS: Dyna-Hex 2% Top Sol 2oz TOPIC SCH (20:10)
[2018-10-26] MEDS: Atorvastatin 20mg tab ORAL SCH (20:26)
[2018-10-26] MEDS: Latanoprost 0.005% Opth 2.5ml Soln BOTH EYES SCH (20:30)
--- NOTE | 2018-10-26 21:00 | NUR ---
NURSE NOTES: Repositioned and kept underpad dry. Replaced optifoam dressings to back and ankles, PICC line soaked with serous fluid and dressing peeling off. Redressed PICC line, elevated scrotum using a rolled towel.
--- NOTE | 2018-10-26 21:10 | Neurology Progress Note ---
Interim History Interim History Interim History Mr. Gann continues to be more responsive. He opens his eyes on vocal stimulation. He is able to give some yes/no answers. He follows commands inconsistently He is still moving his left side better than the right. He continues to be on pressors. He continues to be intubated and artificially ventilated. He has significant anasarca. He continues to be acutely ill. Review of Systems Neuro Review of Systems Unable to obtain. Objective Physical Exam Last Vital Signs Date Time Temp Pulse Resp B/P (MAP) Pulse Ox O2 Delivery O2 Flow Rate FiO2 10/26/18 20:55 86 22 40 10/26/18 19:00 93/48 (63) 100 10/26/18 16:00 Mechanical Ventilator 10/26/18 16:00 98.2 10/20/18 16:23 40.0 Laboratory Tests Test 10/26/18 05:00 10/26/18 13:43 White Blood Count 14.4 K/UL (4.8-10.8) H Red Blood Count 3.17 M/UL (4.70-6.10) L Hemoglobin 8.6 G/DL (14.2-18.0) L Hematocrit 27.7 % (42.0-52.0) L Mean Corpuscular Volume 87 FL (80-99) Mean Corpuscular Hemoglobin 27.1 PG (27.0-31.0) Mean Corpuscular Hemoglobin Concent 31.0 G/DL (32.0-36.0) L Red Cell Distribution Width 24.2 % (11.6-14.8) H Platelet Count 40 K/UL (150-450) L Mean Platelet Volume 9.7 FL (6.5-10.1) Neutrophils (%) (Auto) % (45.0-75.0) Lymphocytes (%) (Auto) % (20.0-45.0) Monocytes (%) (Auto) % (1.0-10.0) Eosinophils (%) (Auto) % (0.0-3.0) Basophils (%) (Auto) % (0.0-2.0) Differential Total Cells Counted 100 Neutrophils % (Manual) 83 % (45-75) H Lymphocytes % (Manual) 7 % (20-45) L Monocytes % (Manual) 3 % (1-10) Eosinophils % (Manual) 0 % (0-3) Basophils % (Manual) 0 % (0-2) Band Neutrophils 7 % (0-8) Platelet Estimate Decreased L Platelet Morphology Normal Polychromasia 2+ Hypochromasia 2+ Anisocytosis 3+ Sodium Level 122 MMOL/L (136-145) L Potassium Level 3.5 MMOL/L (3.5-5.1) Chloride Level 87 MMOL/L (98-107) L Carbon Dioxide Level 21 MMOL/L (21-32) Anion Gap 14 mmol/L (5-15) Blood Urea Nitrogen 69 mg/dL (7-18) H Creatinine 4.5 MG/DL (0.55-1.30) H Estimat Glomerular Filtration Rate mL/min (>60) Glucose Level 152 MG/DL (74-106) H Calcium Level 6.8 MG/DL (8.5-10.1) L Total Bilirubin 4.8 MG/DL (0.2-1.0) H Direct Bilirubin 4.0 MG/DL (0.0-0.3) H Aspartate Amino Transf (AST/SGOT) 182 U/L (15-37) H Alanine Aminotransferase (ALT/SGPT) 223 U/L (12-78) H Alkaline Phosphatase 288 U/L (46-116) H Total Protein 5.2 G/DL (6.4-8.2) L Albumin 1.6 G/DL (3.4-5.0) L Globulin 3.6 g/dL Albumin/Globulin Ratio 0.4 (1.0-2.7) L Arterial Blood pH 7.414 (7.350-7.450) Arterial Blood Partial Pressure CO2 30.4 mmHg (35.0-45.0) L Arterial Blood Partial Pressure O2 99.3 mmHg (75.0-100.0) Arterial Blood HCO3 19.0 mmol/L (22.0-26.0) L Arterial Blood Oxygen Saturation 97.1 % (95-100) Arterial Blood Base Excess -4.7 (-2-2) L Tee Test Positive Neurologic Exam Objective PHYSICAL EXAMINATION: GENERAL: He is a well-developed, relatively well-nourished gentleman , lying in an ICU bed, connected to a ventilator through an orotracheal tube. HEAD: Normocephalic and atraumatic. NECK: No neck rigidity was observed. EENT: Benign. NEUROLOGICAL EXAMINATION: MENTAL STATUS EXAMINATION: He opened his eyes on vocal stimuli. He followed a few simple commands. He was able to communicate with yes/no answers. Further mental status testing was impossible. SPEECH: Could not be tested. LANGUAGE: Could not be tested. CRANIAL NERVE EXAMINATION: II: He did blink to threat. III, IV & : The external ocular movements were present. The pupils were 3 mm in diameter, equal, round, regular, and did not react to light. V & VII: The corneal reflexes were present bilaterally, but significantly diminished on the right side compared to the left. VIII: He did not respond to sounds and had no nystagmus. IX & X: The gag reflex was absent on manipulating the endotracheal tube. XI: The sternocleidomastoids and trapezii did not function. XII: Could not be tested adequately. MOTOR SYSTEM: The tone was normal in all four extremities. Examination of muscle mass revealed no focal wasting. Examination of power was impossible to perform accurately he moved his left side better than the right. SENSORY EXAMINATION: He responded appropriately to deep pain. He was unable to cooperate for other sensory modalities. REFLEXES: Trace+ and bilaterally symmetrical at the biceps, triceps, brachioradialis. 0 at both knees and ankles. The plantar response was extensor on the right and mute on the left. COORDINATION, STANCE & GAIT: Could not be tested. ABNORMAL MOVEMENTS: Tremor (7-8 Hz): 0/4 Impression/Recommendations Diagnostic Impression 1. Mr. Marla Gann is an 83-year-old, gentleman, of unknown handedness, with a past history of multiple medical problems including hypertension, diabetes mellitus, dyslipidemia, aortic stenosis, vitamin B12 deficiency, vitamin D deficiency, coronary artery disease, congestive heart failure, and intestinal pathology. He was hospitalized on 10/09/2018 for an altered mental state related to multiple metabolic imbalances. He did improve, but then in the hospital, he has had multiple further episodes of hypoglycemia. On the morning of 10/19/18, his blood sugar dropped to 22. He has also had problems with his respiratory function, progressive renal dysfunction, and on the morning of 10/19/18 was noted to have weakness in his right upper extremity, this problem continues. 2. He continues to be more responsive. He opens his eyes on vocal stimulation. He is able to give some yes/no answers. He follows commands inconsistently. He is still moving his left side better than the right. He continues to be on pressors. He continues to be intubated and artificially ventilated. He continues to be acutely ill. 3. On neurological examination, at this time, he opens his eyes on vocal stimuli , he is able to follow commands inconsistently. He is able to communicate with yes/no answers, however further mental status testing is impossible. The corneal reflex is definitely diminished on the right side compared to the left. 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 His deep tendon reflexes are globally diminished in the upper extremities and lost in the lower extremities. His plantar response is extensor on the right and mute on the left. He has no tremor. 4. His laboratory data on my initial evaluation revealed that his WBC count was elevated to 16,000. His hemoglobin was low at 7.2 G. His arterial blood gas revealed a pH of 7.18, a pCO2 of 43, and a pO2 of 112. His chemistry panel revealed a sodium of 133, potassium of 5.3, chloride of 91, BUN at 89, creatinine at 5.2, and blood glucose at 22. 5. His EEG done on 10/19/18 revealed a moderately severe encephalopathy with a definite toxic/metabolic component. 6. The Repeat EEG done on 10/23/18 revealed a moderately severe toxic/metabolic encephalopathy. In addition left > right hemispheric dysfunction was seen. The abnormal movements had no EEG correlate. 7. The CT of the brain was benign for acute pathology. 8. His latest laboratory tests reveal that his leukocytosis is worse with a WBC count of 26,300. He is severely hyponatremic with a Na of 121 and chloride of 86. His BUN is elevated at 72 with a creatinine of 4.9. His LFTs are elevated and so is his glucose. 9. The patient's history, neurological examination, and laboratory data are most compatible with a significant toxic metabolic encephalopathy that brought him into the hospital, and now possibly an acute cerebral lesion causing the right hemiparesis. 10. The left UE movement was a tremor. It has now resolved. However the EEG while he was having the tremor revealed no EEG correlate. 11. His encephalopathy is improving. Recommendations 1. Continue present management. 2. Continue to correct toxic metabolic imbalances. 3. Try to keep the blood pressure >110 mmHg systolic. 4. When possible get MRI of brain. 5. Observe closely in ICU setting. Abram Johnson M.D., M.S.P.H. Abram Johnson MD Oct 26, 2018 21:10
--- NOTE | 2018-10-26 22:00 | NUR ---
NURSE NOTES: BP 79/40; Titrated Levophed gtt up to 15mcg/min
[2018-10-27] VITALS (66 sets, daily range): BP systolic 84–118; BP diastolic 34–75
--- NOTE | 2018-10-27 | NUR ---
NURSE NOTES: Calm, asleep;no resp distress; afebrile BP 97/43
[2018-10-27] MEDS: NovoLOG Insulin Flexpen SUBQ SCH ×6 (01:00→20:43)
--- NOTE | 2018-10-27 02:00 | NUR ---
NURSE NOTES: Repositioned, oral care and suctioning done. Tolerates TF. Levophed gtt continues at 15mcg/min. BP 91/37. No distress; sleeping
--- NOTE | 2018-10-27 04:00 | NUR ---
NURSE NOTES: Some stools leaked out of the rectal tube. Irrigated. Bed bath given. Wound dressings dry and intact. Scrotum still swollen but to a lesser degree, kept elevated on rolled towels. Responsive by opening eyes to pain but with flat affect. Remains anuric. Levophed gtt continues at 15mcg/min; continues on the same vent settings. Afebrile, no distress.
[2018-10-27 06:23] LABS: HEMOGLOBIN 8.6 G/DL (14.2-18.0); MEAN CORPUSCULAR VOLUME 88 FL (80-99); PLATELET COUNT 67 K/UL (150-450); RED BLOOD COUNT 3.08 M/UL (4.70-6.10); RED CELL DISTRIBUTION WIDTH 24.5 % (11.6-14.8); WHITE BLOOD COUNT 13.8 K/UL (4.8-10.8)
--- NOTE | 2018-10-27 06:40 | NUR ---
RESPIRATORY NOTE: Received pt on [id number]% FiO2- peep of 5, tolerating well. pt's resting comfortably, eyes open, more awake and alert, follow simple commands. pt is orally intubated with ETT 7.5 @ 23 cm lips line, secured by anchor fast. Keny rhonchi breath sounds upon auscultation, endotracheal suctioned moderate amount of thin brown/red specks secretions and orally suctioned moderate thin/ frothy white oliveira secretions without any incidents. Alarms are set and audible, vent is plugged into the red outlet, ambu bag is at bedside. Vent circuits and sxn tubbing are secured and out of the way. Will continue to monitor pt.
--- NOTE | 2018-10-27 06:50 | General Progress Note ---
Assessment/Plan Problem List: (1) CKD (chronic kidney disease) ICD Codes: N18.9 - Chronic kidney disease, unspecified SNOMED: 752333187 (2) Hypoglycemia ICD Codes: E16.2 - Hypoglycemia, unspecified SNOMED: 829921511 (3) Altered mental status ICD Codes: R41.82 - Altered mental status, unspecified SNOMED: 790951809 (4) Ventilator dependence ICD Codes: Z99.11 - Dependence on respirator [ventilator] status SNOMED: 829561199 (5) Hyponatremia ICD Codes: E87.1 - Hypo-osmolality and hyponatremia SNOMED: 22425924 Assessment/Plan glucose values are stable continue glucose monitoring - low dose Novolog coverage hypoglycemia protocol in order Subjective ROS Limited/Unobtainable: Yes Allergies: Coded Allergies: PENICILLINS (Verified Allergy, Unknown, 10/09/18) Subjective events noted Item Value Date Time Bedside Blood Glucose 152 mg/dl H 10/27/18 0534 Bedside Blood Glucose 109 mg/dl 10/27/18 0100 Bedside Blood Glucose 120 mg/dl 10/26/18 2123 Bedside Blood Glucose 104 mg/dl 10/26/18 1637 Bedside Blood Glucose 79 mg/dl 10/26/18 1300 Bedside Blood Glucose 121 mg/dl H 10/26/18 0823 Bedside Blood Glucose 155 mg/dl H 10/26/18 0530 Bedside Blood Glucose 171 mg/dl H 10/26/18 0115 Objective Last 24 Hour Vital Signs Date Time Temp Pulse Resp B/P (MAP) Pulse Ox O2 Delivery O2 Flow Rate FiO2 10/27/18 06:00 98/40 10/27/18 05:30 85 23 87/43 (58) 100 10/27/18 05:15 85 23 90/35 (53) 100 10/27/18 05:00 89/45 10/27/18 05:00 88 26 89/45 (60) 100 10/27/18 04:47 85 22 40 10/27/18 04:45 89 8 92/42 (59) 100 10/27/18 04:30 93 30 91/37 (55) 98 10/27/18 04:00 Mechanical Ventilator 10/27/18 04:00 104/48 10/27/18 04:00 40 10/27/18 04:00 98.0 86 16 104/48 (66) 100 10/27/18 04:00 85 10/27/18 03:45 85 12 87/43 (58) 100 10/27/18 03:30 85 24 96/40 (58) 100 10/27/18 03:15 85 24 92/50 (64) 100 10/27/18 03:00 85 23 87/43 (58) 100 10/27/18 03:00 87/43 10/27/18 02:56 83 23 40 10/27/18 02:45 84 23 93/41 (58) 100 10/27/18 02:30 84 0 85/42 (56) 100 10/27/18 02:15 85 0 92/35 (54) 100 10/27/18 02:00 85 3 91/37 (55) 100 10/27/18 02:00 91/37 10/27/18 01:45 86 10 91/46 (61) 100 10/27/18 01:30 86 6 90/52 (65) 100 10/27/18 01:15 86 19 92/41 (58) 100 10/27/18 01:00 88/34 10/27/18 01:00 87 13 88/34 (52) 100 10/27/18 00:45 85 22 90/39 (56) 100 10/27/18 00:45 88 24 40 10/27/18 00:30 87 10 84/43 (57) 100 10/27/18 00:15 86 20 85/48 (60) 100 10/27/18 00:00 40 10/27/18 00:00 98.4 86 22 97/43 (61) 100 10/27/18 00:00 Mechanical Ventilator 10/27/18 00:00 97/43 10/27/18 00:00 86 10/26/18 23:45 86 19 86/44 (58) 100 10/26/18 23:30 85 20 90/41 (57) 100 10/26/18 23:15 86 20 91/44 (60) 100 10/26/18 23:02 88 24 40 10/26/18 23:00 91/42 10/26/18 23:00 86 23 91/42 (58) 100 10/26/18 22:45 85 0 89/44 (59) 100 10/26/18 22:30 85 0 87/42 (57) 100 10/26/18 22:15 84 0 81/45 (57) 100 10/26/18 22:00 79/40 10/26/18 22:00 84 0 79/40 (53) 100 10/26/18 21:45 86 3 82/42 (55) 100 10/26/18 21:30 86 19 84/44 (57) 100 10/26/18 21:15 85 21 87/35 (52) 100 10/26/18 21:00 91/44 10/26/18 21:00 89 18 69/41 (50) 100 10/26/18 20:55 86 22 40 10/26/18 20:45 90 20 94/38 (56) 99 10/26/18 20:30 87 23 91/44 (60) 100 10/26/18 20:15 87 24 90/41 (57) 100 10/26/18 20:00 40 10/26/18 20:00 87 23 90/46 (61) 100 10/26/18 20:00 90/46 10/26/18 20:00 Mechanical Ventilator 10/26/18 20:00 87 10/26/18 19:45 87 22 82/45 (57) 100 10/26/18 19:30 98.5 86 22 91/40 (57) 100 10/26/18 19:15 85 21 99/45 (63) 100 10/26/18 19:00 89 25 40 10/26/18 19:00 87 24 93/48 (63) 100 10/26/18 19:00 93/48 10/26/18 19:00 87 24 93/48 (63) 100 10/26/18 18:51 86/43 10/26/18 18:30 85 24 86/43 (57) 100 10/26/18 18:00 84 23 91/42 (58) 100 10/26/18 17:30 84 23 88/39 (55) 100 10/26/18 17:00 87 16 82/35 (51) 100 10/26/18 16:55 86 27 40 10/26/18 16:30 83 22 82/50 (61) 100 10/26/18 16:00 40 10/26/18 16:00 Mechanical Ventilator 10/26/18 16:00 84 10/26/18 16:00 98.2 84 22 97/43 (61) 100 10/26/18 15:30 87 14 97/40 (59) 100 10/26/18 15:00 87 0 83/48 (60) 100 10/26/18 14:30 86 23 93/45 (61) 100 10/26/18 14:25 94 23 40 10/26/18 14:00 89 24 90/51 (64) 98 10/26/18 13:30 91 0 93/44 (60) 98 10/26/18 13:00 94 3 93/46 (62) 98 10/26/18 12:50 89 27 40 10/26/18 12:30 92 6 91/50 (64) 97 10/26/18 12:00 91 10/26/18 12:00 98.0 91 21 93/49 (64) 96 10/26/18 12:00 40 10/26/18 12:00 Mechanical Ventilator 10/26/18 11:30 92 27 96/43 (60) 96 10/26/18 11:06 93/43 10/26/18 11:00 87 28 40 10/26/18 11:00 90 22 93/43 (60) 97 10/26/18 10:30 91 0 89/41 (57) 99 10/26/18 10:00 92 5 102/53 (69) 98 10/26/18 09:30 87 36 40 10/26/18 09:30 100 10/26/18 09:30 89 17 92/39 (56) 96 10/26/18 09:00 87 20 91/38 (55) 99 10/26/18 08:30 85 26 92/42 (59) 100 10/26/18 08:00 40 10/26/18 08:00 Mechanical Ventilator 10/26/18 08:00 98.2 85 19 89/45 (60) 99 10/26/18 08:00 85 10/26/18 07:30 86 20 96/43 (60) 98 10/26/18 07:00 82 20 100/55 (70) 100 Intake and Output 10/26/18 10/27/18 19:00 07:00 Intake Total 726.55 ml 845.59 ml Output Total 100 ml 200 ml Balance 626.55 ml 645.59 ml IV Total 246.55 ml 455.59 ml Tube Feeding 480 ml 360 ml Other 30 ml Output Urine Total 0 ml 0 ml Stool Total 100 ml 200 ml Laboratory Tests 10/26/18 13:43: Arterial Blood pH 7.414, Arterial Blood Partial Pressure CO2 30.4L, Arterial Blood Partial Pressure O2 99.3, Arterial Blood HCO3 19.0L, Arterial Blood Oxygen Saturation 97.1, Arterial Blood Base Excess -4.7L, Tee Test Positive 10/27/18 05:30: White Blood Count 13.8H, Red Blood Count 3.08L, Hemoglobin 8.6L, Hematocrit 27.0L, Mean Corpuscular Volume 88, Mean Corpuscular Hemoglobin 27.8, Mean Corpuscular Hemoglobin Concent 31.7L, Red Cell Distribution Width 24.5H, Platelet Count 67#L, Mean Platelet Volume 9.2, Neutrophils (%) (Auto) , Lymphocytes (%) (Auto) , Monocytes (%) (Auto) , Eosinophils (%) (Auto) , Basophils (%) (Auto) , Sodium Level [Pending], Potassium Level [Pending], Chloride Level [Pending], Carbon Dioxide Level [Pending], Blood Urea Nitrogen [ Pending], Creatinine [Pending], Estimat Glomerular Filtration Rate [Pending], Glucose Level [Pending], Calcium Level [Pending], Total Bilirubin [Pending], Aspartate Amino Transf (AST/SGOT) [Pending], Alanine Aminotransferase (ALT/SGPT ) [Pending], Alkaline Phosphatase [Pending], Total Protein [Pending], Albumin [ Pending], Globulin [Pending], Random Vancomycin Level 20.2 Height (Feet): 5 Height (Inches): 2.00 Weight (Pounds): 198 General Appearance: lethargic Neck: normal alignment Cardiovascular: tachycardia Respiratory/Chest: decreased breath sounds Abdomen: normal bowel sounds Objective Current Medications Medications (Trade) Dose Ordered Sig/Ashely Route PRN Reason Start Time Stop Time Status Last Admin Dose Admin Acetaminophen (Tylenol) 650 mg Q6H PRN ORAL Mild Pain/Temp > 100.5 10/18/18 16:30 11/08/18 04:23 Albumin Human 100 ml @ 200 mls/hr PRN PRN IV sbp<90 during hd 10/27/18 14:15 10/27/18 23:59 Aspirin (Ecotrin) 81 mg DAILY ORAL 10/19/18 09:00 11/09/18 08:59 10/24/18 09:54 Atorvastatin Calcium (Lipitor) 40 mg BEDTIME ORAL 10/18/18 21:00 11/09/18 20:59 10/26/18 20:26 Calcium Carbonate (Tums) 500 mg BID GT 10/20/18 18:00 11/09/18 08:59 10/26/18 17:41 Chlorhexidine Gluconate (Anai-Hex 2%) 1 applic DAILY@2000 TOPIC 10/18/18 20:00 11/12/18 19:59 10/26/18 20:10 Dextrose (Dextrose 50%) 25 ml Q30M PRN IV Hypoglycemia 10/23/18 08:15 11/22/18 08:14 Dextrose (Dextrose 50%) 50 ml Q30M PRN IV Hypoglycemia 10/23/18 08:15 11/22/18 08:14 Dobutamine HCl 250 ml @ 10.05 mls/ hr Q24H IV 10/19/18 11:40 11/18/18 11:39 10/22/18 12:43 Dopamine HCl/ Dextrose 250 ml @ 0 mls/hr Q24H IV 10/19/18 12:45 11/18/18 12:44 10/20/18 17:43 Fluconazole/ Sodium Chloride 100 ml @ 100 mls/hr Q24H IV 10/22/18 20:00 10/29/18 19:59 10/26/18 20:10 Haloperidol Lactate (Haldol) 5 mg Q6H PRN IM Agitation 10/18/18 17:00 11/17/18 16:59 Heparin Sodium (Porcine) (Heparin Sod 1000 units/ml 10ml) 500 unit ONCE PRN IV dialysis 10/27/18 14:15 10/27/18 23:59 Insulin Aspart (NovoLOG) EVERY 4 HOURS SUBQ 10/23/18 09:00 11/22/18 08:59 10/27/18 05:34 Latanoprost (Xalatan) 1 drop BEDTIME BOTH EYES 10/18/18 21:00 11/10/18 20:59 10/26/18 20:30 Meropenem 500 mg/ Sodium Chloride 50 ml @ 100 mls/hr Q24HRS IVPB 10/25/18 00:00 10/30/18 00:00 10/26/18 23:43 Norepinephrine Bitartrate 16 mg/ Dextrose 500 ml @ 0 mls/hr Q24H IV 10/20/18 18:00 11/19/18 17:59 10/26/18 18:51 Ondansetron HCl (Zofran) 4 mg Q8H PRN IVP Nausea & Vomiting 10/18/18 17:00 11/17/18 16:59 Pantoprazole (Protonix) 40 mg ACBREAKFAST ORAL 10/19/18 06:30 11/09/18 08:59 10/27/18 06:33 Promethazine HCl (Phenergan [place]) 6.25 mg Q6H PRN ORAL For Cough 10/18/18 16:45 11/10/18 04:32 Vancomycin HCl (Vanco rx to dose) 1 ea DAILY PRN MISC Per rx protocol 10/19/18 23:30 11/18/18 23:29 Vancomycin HCl 1 gm/Dextrose 275 ml @ 183.708 mls/hr ONCE IVPB 10/27/18 21:00 10/27/18 23:00 Vasopressin 100 units/Sodium Chloride 100 ml @ 2.4 mls/hr Q24H IV 10/22/18 15:00 11/21/18 14:59 10/25/18 15:13 Barry Schmitt MD Oct 27, 2018 06:50
[2018-10-27 06:57] LABS: ALANINE AMINOTRANSFERASE 168 U/L (12-78); ALBUMIN 1.5 G/DL (3.4-5.0); ALBUMIN/GLOBULIN RATIO 0.4 (1.0-2.7); ALKALINE PHOSPHATASE 298 U/L (46-116); ANION GAP 15 mmol/L (5-15); ASPARTATE AMINO TRANSFERASE 169 U/L (15-37); BILIRUBIN,TOTAL 4.4 MG/DL (0.2-1.0); BLOOD UREA NITROGEN 82 mg/dL (7-18); CALCIUM 6.8 MG/DL (8.5-10.1); CARBON DIOXIDE 21 MMOL/L (21-32); CHLORIDE 87 MMOL/L (98-107); POTASSIUM 3.4 MMOL/L (3.5-5.1); SODIUM 123 MMOL/L (136-145)
[2018-10-27 06:58] LABS: BILIRUBIN,DIRECT 3.7 MG/DL (0.0-0.3)
--- NOTE | 2018-10-27 07:14 | NUR ---
HAND-OFF: Report given to Mary Anne OSMAN.
--- NOTE | 2018-10-27 08:00 | NUR ---
NURSE NOTES: Received patient opens eyes spontaneously, tracks and follows simple command. 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 Patient is intubated 7.5/23 cm lipline. AC 20 VT 500 FiO2 40% Peep 5. Brown / thick / small secretions. Patient has OGT. Nepro at 40 cc/hr. Lung sounds clear bilaterally. Hyeractive bowel sounds on all 4 quadrants. Rectal tube intact. No cooper, patient is anuric. Patient has multiple skin issues - check pictures. Patient has R IJ cem cath. L upper arm PIC line. Levo at 15 mcg/min. Dr. Miller aware of abnormal labs - dialysis scheduled today with [facility]. Confirmed. Bed on lowest position, bed alarm on, call light within reach, no new orders at this time. Will continue plan of care.
--- NOTE | 2018-10-27 08:40 | NUR ---
RESPIRATORY NOTE: Placed pt on CPAP PS of 8- 40%FiO2- peep of 5 per weaning order. Pt's tolerating well. No SOB or resp distress. RN Mary Anne made aware. Will continue to monitor.
[2018-10-27] MEDS: Aspirin EC 81mg tab ORAL SCH (08:49)
[2018-10-27] MEDS: Tums 500mg GT SCH ×2 (08:49→17:36)
[2018-10-27] MEDS: DOBUTamine 250mg/250ml Premix 250 ML IV SCH (08:53)
[2018-10-27] MEDS: DOPamine 400mg/250ml 250 ML IV SCH (08:54)
--- NOTE | 2018-10-27 09:28 | NUR ---
Social Service Note BENITO spoke with patient's son Leonel to discuss plan of care [phone]. Son states that he has been provided updates on a regular basis and is aware of all medical interventions. Code status readdressed. Son continues to request full code and full aggressive treatment. Patient started on dialysis and if unable to wear will require trach. Will continue to monitor.
--- NOTE | 2018-10-27 09:38 | General Progress Note ---
Assessment/Plan Problem List: (1) Elevated LFTs ICD Codes: R94.5 - Abnormal results of liver function studies SNOMED: 148843600, 100088797 (2) Fatty liver ICD Codes: K76.0 - Fatty (change of) liver, not elsewhere classified SNOMED: 650920681 (3) History of cholecystectomy ICD Codes: Z90.49 - Acquired absence of other specified parts of digestive tract SNOMED: 72457386, 568339719 (4) Thrombocytopenia ICD Codes: D69.6 - Thrombocytopenia, unspecified SNOMED: 512418019 (5) possible panreatitis (6) Sepsis ICD Codes: A41.9 - Sepsis, unspecified organism SNOMED: 04539711 (7) Ventilator dependence ICD Codes: Z99.11 - Dependence on respirator [ventilator] status SNOMED: 421685426 (8) Hyponatremia ICD Codes: E87.1 - Hypo-osmolality and hyponatremia SNOMED: 84893764 (9) Respiratory failure, acute ICD Codes: J96.00 - Acute respiratory failure, unspecified whether with hypoxia or hypercapnia SNOMED: 04192320 (10) Acute metabolic encephalopathy ICD Codes: G93.41 - Metabolic encephalopathy SNOMED: 15114461, 599323115 (11) Pneumonia ICD Codes: J18.9 - Pneumonia, unspecified organism SNOMED: 203406295 (12) Hypotension ICD Codes: I95.9 - Hypotension, unspecified SNOMED: 54625407 (13) CAD (coronary artery disease) ICD Codes: I25.10 - Atherosclerotic heart disease of [place] coronary artery without angina pectoris SNOMED: 21847296 Assessment/Plan KUB and us reviewed no dilated CBD fu lfts no need for ERCP at this time ngtf repeat labs supportive care rectal tube on HD on multiple pressors, >>> not stable for abd CT>>> plan when more stable Subjective ROS Limited/Unobtainable: No Allergies: Coded Allergies: PENICILLINS (Verified Allergy, Unknown, 10/09/18) Objective Last 24 Hour Vital Signs Date Time Temp Pulse Resp B/P (MAP) Pulse Ox O2 Delivery O2 Flow Rate FiO2 10/27/18 08:54 98/46 10/27/18 08:53 98/45 10/27/18 08:40 87 28 40 10/27/18 07:30 98.9 88 15 98/52 (67) 100 10/27/18 07:01 85 0 95/50 (65) 100 10/27/18 06:45 85 0 94/50 (65) 100 10/27/18 06:40 83 24 40 10/27/18 06:30 87 11 93/41 (58) 100 10/27/18 06:15 86 23 87/44 (58) 100 10/27/18 06:00 98/40 10/27/18 06:00 85 24 98/40 (59) 100 10/27/18 05:45 83 23 87/43 (58) 100 10/27/18 05:30 85 23 87/43 (58) 100 10/27/18 05:15 85 23 90/35 (53) 100 10/27/18 05:00 89/45 10/27/18 05:00 88 26 89/45 (60) 100 10/27/18 04:47 85 22 40 10/27/18 04:45 89 8 92/42 (59) 100 10/27/18 04:30 93 30 91/37 (55) 98 10/27/18 04:00 Mechanical Ventilator 10/27/18 04:00 104/48 10/27/18 04:00 40 10/27/18 04:00 98.0 86 16 104/48 (66) 100 10/27/18 04:00 85 10/27/18 03:45 85 12 87/43 (58) 100 10/27/18 03:30 85 24 96/40 (58) 100 10/27/18 03:15 85 24 92/50 (64) 100 10/27/18 03:00 85 23 87/43 (58) 100 10/27/18 03:00 87/43 10/27/18 02:56 83 23 40 10/27/18 02:45 84 23 93/41 (58) 100 10/27/18 02:30 84 0 85/42 (56) 100 10/27/18 02:15 85 0 92/35 (54) 100 10/27/18 02:00 85 3 91/37 (55) 100 10/27/18 02:00 91/37 10/27/18 01:45 86 10 91/46 (61) 100 10/27/18 01:30 86 6 90/52 (65) 100 10/27/18 01:15 86 19 92/41 (58) 100 10/27/18 01:00 88/34 10/27/18 01:00 87 13 88/34 (52) 100 10/27/18 00:45 85 22 90/39 (56) 100 10/27/18 00:45 88 24 40 10/27/18 00:30 87 10 84/43 (57) 100 10/27/18 00:15 86 20 85/48 (60) 100 10/27/18 00:00 40 10/27/18 00:00 98.4 86 22 97/43 (61) 100 10/27/18 00:00 Mechanical Ventilator 10/27/18 00:00 97/43 10/27/18 00:00 86 10/26/18 23:45 86 19 86/44 (58) 100 10/26/18 23:30 85 20 90/41 (57) 100 10/26/18 23:15 86 20 91/44 (60) 100 10/26/18 23:02 88 24 40 10/26/18 23:00 91/42 10/26/18 23:00 86 23 91/42 (58) 100 10/26/18 22:45 85 0 89/44 (59) 100 10/26/18 22:30 85 0 87/42 (57) 100 10/26/18 22:15 84 0 81/45 (57) 100 10/26/18 22:00 79/40 10/26/18 22:00 84 0 79/40 (53) 100 10/26/18 21:45 86 3 82/42 (55) 100 10/26/18 21:30 86 19 84/44 (57) 100 10/26/18 21:15 85 21 87/35 (52) 100 10/26/18 21:00 91/44 10/26/18 21:00 89 18 69/41 (50) 100 10/26/18 20:55 86 22 40 10/26/18 20:45 90 20 94/38 (56) 99 10/26/18 20:30 87 23 91/44 (60) 100 10/26/18 20:15 87 24 90/41 (57) 100 10/26/18 20:00 40 10/26/18 20:00 87 23 90/46 (61) 100 10/26/18 20:00 90/46 10/26/18 20:00 Mechanical Ventilator 10/26/18 20:00 87 10/26/18 19:45 87 22 82/45 (57) 100 10/26/18 19:30 98.5 86 22 91/40 (57) 100 10/26/18 19:15 85 21 99/45 (63) 100 10/26/18 19:00 89 25 40 10/26/18 19:00 87 24 93/48 (63) 100 10/26/18 19:00 93/48 10/26/18 19:00 87 24 93/48 (63) 100 10/26/18 18:51 86/43 10/26/18 18:30 85 24 86/43 (57) 100 10/26/18 18:00 84 23 91/42 (58) 100 10/26/18 17:30 84 23 88/39 (55) 100 10/26/18 17:00 87 16 82/35 (51) 100 10/26/18 16:55 86 27 40 10/26/18 16:30 83 22 82/50 (61) 100 10/26/18 16:00 40 10/26/18 16:00 Mechanical Ventilator 10/26/18 16:00 84 10/26/18 16:00 98.2 84 22 97/43 (61) 100 10/26/18 15:30 87 14 97/40 (59) 100 10/26/18 15:00 87 0 83/48 (60) 100 10/26/18 14:30 86 23 93/45 (61) 100 10/26/18 14:25 94 23 40 10/26/18 14:00 89 24 90/51 (64) 98 10/26/18 13:30 91 0 93/44 (60) 98 10/26/18 13:00 94 3 93/46 (62) 98 10/26/18 12:50 89 27 40 10/26/18 12:30 92 6 91/50 (64) 97 10/26/18 12:00 91 10/26/18 12:00 98.0 91 21 93/49 (64) 96 10/26/18 12:00 40 10/26/18 12:00 Mechanical Ventilator 10/26/18 11:30 92 27 96/43 (60) 96 10/26/18 11:06 93/43 10/26/18 11:00 87 28 40 10/26/18 11:00 90 22 93/43 (60) 97 10/26/18 10:30 91 0 89/41 (57) 99 10/26/18 10:00 92 5 102/53 (69) 98 Intake and Output 10/26/18 10/27/18 19:00 07:00 Intake Total 726.55 ml 925.59 ml Output Total 100 ml 200 ml Balance 626.55 ml 725.59 ml IV Total 246.55 ml 455.59 ml Tube Feeding 480 ml 440 ml Other 30 ml Output Urine Total 0 ml 0 ml Stool Total 100 ml 200 ml Laboratory Tests 10/26/18 13:43: Arterial Blood pH 7.414, Arterial Blood Partial Pressure CO2 30.4L, Arterial Blood Partial Pressure O2 99.3, Arterial Blood HCO3 19.0L, Arterial Blood Oxygen Saturation 97.1, Arterial Blood Base Excess -4.7L, Tee Test Positive 10/27/18 05:30: White Blood Count 13.8H, Red Blood Count 3.08L, Hemoglobin 8.6L, Hematocrit 27.0L, Mean Corpuscular Volume 88, Mean Corpuscular Hemoglobin 27.8, Mean Corpuscular Hemoglobin Concent 31.7L, Red Cell Distribution Width 24.5H, Platelet Count 67#L, Mean Platelet Volume 9.2, Neutrophils (%) (Auto) , Lymphocytes (%) (Auto) , Monocytes (%) (Auto) , Eosinophils (%) (Auto) , Basophils (%) (Auto) , Sodium Level 123L, Potassium Level 3.4L, Chloride Level 87L, Carbon Dioxide Level 21, Anion Gap 15, Blood Urea Nitrogen 82H, Creatinine 5.0H, Estimat Glomerular Filtration Rate , Glucose Level 148H, Calcium Level 6.8L, Total Bilirubin 4.4H, Direct Bilirubin 3.7H, Aspartate Amino Transf (AST/ SGOT) 169H, Alanine Aminotransferase (ALT/SGPT) 168H, Alkaline Phosphatase 298H , Total Protein 5.3L, Albumin 1.5L, Globulin 3.8, Albumin/Globulin Ratio 0.4L, Random Vancomycin Level 20.2 Height (Feet): 5 Height (Inches): 2.00 Weight (Pounds): 198 General Appearance: lethargic EENT: normal ENT inspection Neck: supple Cardiovascular: tachycardia Respiratory/Chest: decreased breath sounds Abdomen: soft, hypoactive bowel sounds Extremities: non-tender Baldemar Hawley MD Oct 27, 2018 09:38
[2018-10-27] MEDS ORDERED: Loperamide 2mg cap ORAL PRN (09:45)
--- NOTE | 2018-10-27 10:00 | NUR ---
NURSE NOTES: Patient turned and repositioned. No new orders at this time. Levophed at 20 mcg/min now due to currently being dialyzed. Will continue to monitor patient.
--- NOTE | 2018-10-27 11:24 | NUR ---
RD ASSESSMENT & RECOMMENDATIONS SEE CARE ACTIVITY FOR COMPLETE ASSESSMENT DAILY ESTIMATED NEEDS: Needs based on DM, CHF, renal dysfunction w/ HD, critical care/ 64.5kg 25-30 kcals/kg 9184-8591 total kcals with HD: 1.25-2 g protein/kg with HD: 81-129 g total protein Fluid per MD, now on HD mL/kg . total fluid mLs NUTRITION DIAGNOSIS: 1) Altered nutrition related lab values R/T DM w/ hypoglycemia, CHF, renal dysfunction as evidenced by critically low hypoglycemic episodes, now improved (POC 79-152, now higher), elev BNP (79679, not updated), elev BUN/ creat (82/5.0), low Na (123), low K (3.4). 2) Swallowing difficulty r/t respiratory distress as evidenced by pt now s/p oral intubation, on OGT feeds, on pressor support, ICU status. 3) Increased kcal and protein needs r/t renal dysfunction and wound healing as evidenced by pt now on HD, and w/ partial thickness R gluteal cleft wound. CURRENT TF:NEPRO @40ml + PS x1 PO DIET RECOMMENDATIONS: CAMPAIGN ANALYST eval upon extubation EN TERAL NUTRITION RECOMMENDATIONS: WHEN STABLE: NEPRO @40ml/hr x24 hrs + Prosource 1 pack daily to provide 960ml, 1728 kcal, 78g + 11g prot, 698ml free H2O - FEED W/ HEMODYNAMIC STABILITY - Flush per MD. HOB over 30 degrees ------ REC TROPHIC FEEDS OF 10ML/HR TO MAINTAIN GUT INTEGRITY IF PT NOT HEMODYNAMICALLY STABLE FOR FEEDS AT GOAL ADDITIONAL RECOMMENDATIONS: * Calibrated bedscale wt, daily wts per policy (CHF dx) -> now w/ added P200 mattress + pump (est 25#) * Monitor lytes closely, replete as needed * WOUND CARE: add DAPHNE BID * TF recs as above when hemodynamically stable for feeds -> (10/27) Pt on Levo @ 15mcg, rec trophic feeds of 10ml/hr at this time .
--- NOTE | 2018-10-27 11:25 | NUR ---
RESPIRATORY NOTE: Put pt back on AC mode due to dialysis procedure. Pt's resting comfortably, no SOB or resp distress noted. Will continue to monitor.
--- NOTE | 2018-10-27 12:00 | NUR ---
NURSE NOTES: TUrned and repositioned. VSS. Patient stable. 1 L was taken out during dialysis per dialysis nurse. No new orders. will continue to monitor patient.
[2018-10-27] MEDS: Norepinephrine Bitartrate 16 MG in D5W 500ml 484 ML IV SCH (14:00)
--- NOTE | 2018-10-27 14:00 | NUR ---
Patient turned and repositioned. No new orders at this time. VSS. Will continue plan of care.
[2018-10-27] MEDS ORDERED: Heparin Sod 1000 units/ml 10ml IV PRN (14:15)
[2018-10-27] MEDS: Vasopressin 100 UNITS in NS 95 ML IV SCH (15:00)
--- NOTE | 2018-10-27 16:00 | NUR ---
NURSE NOTES: Patient turned and repositioned. No new orders at this time. VSS. Remains on levophed, unable to titrate off. Will continue plan of care.
--- NOTE | 2018-10-27 18:00 | NUR ---
NURSE NOTES: Turned and repositioned. VSS. No distress noted.
--- NOTE | 2018-10-27 19:00 | NUR ---
NURSE NOTES: Received patient opens eyes spontaneously, tracks and follows simple command. natural gas basis trader showing SR. Patient is intubated 7.5/23 cm lipline. AC 20 VT 500 FiO2 40% Peep 5. Brown / thick / small secretions. Patient has OGT. Nepro at 40 cc/hr.Hyperactive bowel sounds on all 4 quadrants. Rectal tube intact. No cooper, patient is anuric. Patient has multiple skin issues - check pictures. Patient has R IJ cem cath. L upper arm PIC line. Levo at 20 mcg/min. S/P HD today with 1000ml/output. Bed on lowest position, bed alarm on, call light within reach, no new orders at this time. Will continue plan of care.
--- NOTE | 2018-10-27 19:04 | NUR ---
CASE MANAGEMENT: REVIEW SI: ACUTE RESPIRATORY FAILURE . CAD . PNA T 98.8 HR 77 RR 28 BP 88/58 SAT 100% MECH VENT FIO2 40 WBC 13.8 H/H 8.6/27.0 NA 123 K 3.4 BUN 82 CR 5.0 IS: DOBUTAMINE GTT DOPAMINE GTT LEVOPHED GTT VASOPRESSIN IV Q24HR MEROPENEM IV Q24HR DIFLUCAN IV Q24HR HEMODIALYSIS PRN NPO ICU STATUS DCP: PATIENT IS FROM HOME
--- NOTE | 2018-10-27 19:05 | NUR ---
HAND-OFF: Report given to JACQUI Samuel using SBAR. VSS. No distress noted.
--- NOTE | 2018-10-27 19:09 | Pulmonolgy Critical Care Note ---
Critical Care - Asmt/Plan Problems: (1) Respiratory failure, acute (2) Ventilator dependence (3) CHF (congestive heart failure) (4) CAD (coronary artery disease) (5) NSTEMI (non-ST elevated myocardial infarction) (6) Respiratory acidosis (7) Hemoptysis (8) Hypoglycemia (9) Pneumonia (10) Hypotension (11) Elevated d-dimer (12) Acute kidney injury superimposed on CKD Assessment & Plan: S/P initiation of HD (13) Hyponatremia (14) Sepsis Respiratory: monitor respiratory rate, other - SBT in am, likely extubation Cardiac: continue pressors, continue to monitor HR/BP Renal: other Infectious Disease: continue antibiotics - per ID Gastrointestinal: continue feedings/current rate, hold feedings - in am for SBT Endocrine: monitor blood sugar, other - F/U ENDO recs Hematologic: monitor H/H, other - monitor platelets, F/U heme recs Neurologic: keep patient comfortable Prophylaxis: Protonix, Heparin - held for thrombocytopenia Disposition: keep in ICU Time Spent (Minutes): 40 Notes Reviewed: physical therapy aides teacher, cardio, renal, ID, GI Discussed with: nurses, consultants Critical Care - Objective Last 24 Hour Vital Signs Date Time Temp Pulse Resp B/P (MAP) Pulse Ox O2 Delivery O2 Flow Rate FiO2 10/27/18 19:00 70 20 104/50 (68) 100 10/27/18 18:30 75 20 102/45 (64) 100 10/27/18 18:00 90 20 106/68 (81) 100 10/27/18 17:30 70 20 98/65 (76) 100 10/27/18 17:00 74 15 94/62 (73) 100 10/27/18 16:49 92 24 40 10/27/18 16:30 77 15 95/66 (76) 100 10/27/18 16:00 90 10/27/18 16:00 40 10/27/18 16:00 Mechanical Ventilator 10/27/18 16:00 98.8 70 15 90/58 (69) 100 10/27/18 15:30 71 15 92/60 (71) 100 10/27/18 15:00 73 15 88/58 (68) 100 10/27/18 14:50 91 28 40 10/27/18 14:30 72 15 90/62 (71) 100 10/27/18 14:00 74 15 92/65 (74) 100 10/27/18 14:00 90/48 10/27/18 13:30 78 15 110/70 (83) 100 10/27/18 13:09 91 27 40 10/27/18 13:00 71 15 118/72 (87) 100 10/27/18 12:30 74 15 115/74 (88) 100 10/27/18 12:00 40 10/27/18 12:00 91 10/27/18 12:00 Mechanical Ventilator 10/27/18 12:00 98.8 70 15 108/70 (83) 100 10/27/18 11:30 71 15 110/75 (87) 100 10/27/18 11:30 40 10/27/18 11:25 101 24 40 10/27/18 11:00 78 18 112/74 (87) 100 10/27/18 10:30 77 18 108/72 (84) 100 10/27/18 10:00 75 17 105/70 (82) 100 10/27/18 09:30 78 17 110/55 (73) 100 10/27/18 09:00 78 17 95/50 (65) 100 10/27/18 08:54 98/46 10/27/18 08:53 98/45 10/27/18 08:40 100 10/27/18 08:40 40 10/27/18 08:40 87 28 40 10/27/18 08:30 85 17 94/48 (63) 100 10/27/18 08:00 Mechanical Ventilator 10/27/18 08:00 40 10/27/18 08:00 88 10/27/18 08:00 88 16 92/48 (63) 100 10/27/18 07:30 98.9 88 15 98/52 (67) 100 10/27/18 07:01 85 0 95/50 (65) 100 10/27/18 06:45 85 0 94/50 (65) 100 10/27/18 06:40 83 24 40 10/27/18 06:30 87 11 93/41 (58) 100 10/27/18 06:15 86 23 87/44 (58) 100 10/27/18 06:00 98/40 10/27/18 06:00 85 24 98/40 (59) 100 10/27/18 05:45 83 23 87/43 (58) 100 10/27/18 05:30 85 23 87/43 (58) 100 10/27/18 05:15 85 23 90/35 (53) 100 10/27/18 05:00 89/45 10/27/18 05:00 88 26 89/45 (60) 100 10/27/18 04:47 85 22 40 10/27/18 04:45 89 8 92/42 (59) 100 10/27/18 04:30 93 30 91/37 (55) 98 10/27/18 04:00 Mechanical Ventilator 10/27/18 04:00 104/48 10/27/18 04:00 40 10/27/18 04:00 98.0 86 16 104/48 (66) 100 10/27/18 04:00 85 10/27/18 03:45 85 12 87/43 (58) 100 10/27/18 03:30 85 24 96/40 (58) 100 10/27/18 03:15 85 24 92/50 (64) 100 10/27/18 03:00 85 23 87/43 (58) 100 10/27/18 03:00 87/43 10/27/18 02:56 83 23 40 10/27/18 02:45 84 23 93/41 (58) 100 10/27/18 02:30 84 0 85/42 (56) 100 10/27/18 02:15 85 0 92/35 (54) 100 10/27/18 02:00 85 3 91/37 (55) 100 10/27/18 02:00 91/37 10/27/18 01:45 86 10 91/46 (61) 100 10/27/18 01:30 86 6 90/52 (65) 100 10/27/18 01:15 86 19 92/41 (58) 100 10/27/18 01:00 88/34 10/27/18 01:00 87 13 88/34 (52) 100 10/27/18 00:45 85 22 90/39 (56) 100 10/27/18 00:45 88 24 40 10/27/18 00:30 87 10 84/43 (57) 100 10/27/18 00:15 86 20 85/48 (60) 100 10/27/18 00:00 40 10/27/18 00:00 98.4 86 22 97/43 (61) 100 10/27/18 00:00 Mechanical Ventilator 10/27/18 00:00 97/43 10/27/18 00:00 86 10/26/18 23:45 86 19 86/44 (58) 100 10/26/18 23:30 85 20 90/41 (57) 100 10/26/18 23:15 86 20 91/44 (60) 100 10/26/18 23:02 88 24 40 10/26/18 23:00 91/42 10/26/18 23:00 86 23 91/42 (58) 100 10/26/18 22:45 85 0 89/44 (59) 100 10/26/18 22:30 85 0 87/42 (57) 100 10/26/18 22:15 84 0 81/45 (57) 100 10/26/18 22:00 79/40 10/26/18 22:00 84 0 79/40 (53) 100 10/26/18 21:45 86 3 82/42 (55) 100 10/26/18 21:30 86 19 84/44 (57) 100 10/26/18 21:15 85 21 87/35 (52) 100 10/26/18 21:00 91/44 10/26/18 21:00 89 18 69/41 (50) 100 10/26/18 20:55 86 22 40 10/26/18 20:45 90 20 94/38 (56) 99 10/26/18 20:30 87 23 91/44 (60) 100 10/26/18 20:15 87 24 90/41 (57) 100 10/26/18 20:00 40 10/26/18 20:00 87 23 90/46 (61) 100 10/26/18 20:00 90/46 10/26/18 20:00 Mechanical Ventilator 10/26/18 20:00 87 10/26/18 19:45 87 22 82/45 (57) 100 10/26/18 19:30 98.5 86 22 91/40 (57) 100 10/26/18 19:15 85 21 99/45 (63) 100 Status: awake Condition: improving HEENT: atraumatic, normocephalic, other - ETT NGT Lungs: clear Heart: HR/BP unstable Abdomen: soft, non-tender, active bowel sounds Extremities: no C/C/E Accucheck: 108 Blood Sugars: BS controlled Critical Care - Subjective ROS Limited/Unobtainable: Yes ICU Day: 10 Intubation Day: 9 Interval Events: Onur SBT S/P HD - 1L Awake and alert Onur TF's Condition: stable IV Access: PICC, central EKG Rhythm: Sinus Rhythm FI02: 40 Vent Support Breath Rate: 20 Vent Support Mode: AC Vent Tidal Volume: 500 Sputum Amount: Moderate PEEP: 5.0 PIP: 34 Drips: 22 mcg NE Tube Feeding Amount: 40 I&O: Intake and Output 10/26/18 10/27/18 19:00 07:00 Intake Total 726.55 ml 925.59 ml Output Total 100 ml 200 ml Balance 626.55 ml 725.59 ml IV Total 246.55 ml 455.59 ml Tube Feeding 480 ml 440 ml Other 30 ml Output Urine Total 0 ml 0 ml Stool Total 100 ml 200 ml Subjective: ZACHARY ET-Tube: 7.5 ET Position: 23 Labs: Laboratory Tests Test 10/27/18 05:30 White Blood Count 13.8 K/UL (4.8-10.8) H Red Blood Count 3.08 M/UL (4.70-6.10) L Hemoglobin 8.6 G/DL (14.2-18.0) L Hematocrit 27.0 % (42.0-52.0) L Mean Corpuscular Volume 88 FL (80-99) Mean Corpuscular Hemoglobin 27.8 PG (27.0-31.0) Mean Corpuscular Hemoglobin Concent 31.7 G/DL (32.0-36.0) L Red Cell Distribution Width 24.5 % (11.6-14.8) H Platelet Count 67 K/UL (150-450) #L Mean Platelet Volume 9.2 FL (6.5-10.1) Neutrophils (%) (Auto) % (45.0-75.0) Lymphocytes (%) (Auto) % (20.0-45.0) Monocytes (%) (Auto) % (1.0-10.0) Eosinophils (%) (Auto) % (0.0-3.0) Basophils (%) (Auto) % (0.0-2.0) Sodium Level 123 MMOL/L (136-145) L Potassium Level 3.4 MMOL/L (3.5-5.1) L Chloride Level 87 MMOL/L (98-107) L Carbon Dioxide Level 21 MMOL/L (21-32) Anion Gap 15 mmol/L (5-15) Blood Urea Nitrogen 82 mg/dL (7-18) H Creatinine 5.0 MG/DL (0.55-1.30) H Estimat Glomerular Filtration Rate mL/min (>60) Glucose Level 148 MG/DL (74-106) H Calcium Level 6.8 MG/DL (8.5-10.1) L Total Bilirubin 4.4 MG/DL (0.2-1.0) H Direct Bilirubin 3.7 MG/DL (0.0-0.3) H Aspartate Amino Transf (AST/SGOT) 169 U/L (15-37) H Alanine Aminotransferase (ALT/SGPT) 168 U/L (12-78) H Alkaline Phosphatase 298 U/L (46-116) H Total Protein 5.3 G/DL (6.4-8.2) L Albumin 1.5 G/DL (3.4-5.0) L Globulin 3.8 g/dL Albumin/Globulin Ratio 0.4 (1.0-2.7) L Random Vancomycin Level 20.2 ug/mL Chidi Bourne MD Oct 27, 2018 19:09
--- NOTE | 2018-10-27 19:59 | Cardiology Progress Note ---
Assessment/Plan Assessment/Plan cardiology critical care 1. Hypoglycemia secondary to medication. 2. Diabetes mellitus previously. 3. Acute Respiratory inusf / hemoptysis 4. History of ischemic cardiomyopathy with ejection fraction of 40%. 5. Mitral regurgitation, [id number] degree on recent echocardiogram last week. 6. Moderate tricuspid regurgitation. 7. Mild pulmonary hypertension with 43 through 48. 8. Pleural effusions history. 9. Abnormal gastric endoscopy, suspicious for malignancy with submucosal resection. 10. Aortic stenosis. 11. Hyperlipidemia. 12. Prostate cancer. 13. Abnormal facial asymmetry. 14. CAD 15. AMS 16. NSTEMI demand related vs PE related doubt acs 17. acute on chronic renal failure 18. metabolic acidosis 19. hemiparesis 20. hypotension / septic shock 21. Thrombocytopenia 22. abn lft probable shock liver ? 23. profound hyponatremia 24. hyper bilirubinemia 25. Thrombocytopenia echo reviewed has infor post swma and mod mr and ef probabley 35-40% , rv is not enlarge ivc ws enlarged at the time was done v/q was ordered but not done heparin dcd due to thrombocytopenia is on abx adjusted by id bp is littel better on pressor lft down trending but bili trendign down d/w family 10/22/2018 i have made son aware of the poor status we discussed resuscitative effort they wish him to be full code due to synagogue reason neew more uf wbc ias better na is better venous duplex neg remains critical but improved Subjective Cardiovascular: Denies: chest pain Respiratory: Denies: shortness of breath Gastrointestinal/Abdominal: Denies: abdomen distended Subjective intubated on 1 pressor , but now follows commnads Objective Last 24 Hour Vital Signs Date Time Temp Pulse Resp B/P (MAP) Pulse Ox O2 Delivery O2 Flow Rate FiO2 10/27/18 19:00 70 20 104/50 (68) 100 10/27/18 18:30 75 20 102/45 (64) 100 10/27/18 18:00 90 20 106/68 (81) 100 10/27/18 17:30 70 20 98/65 (76) 100 10/27/18 17:00 74 15 94/62 (73) 100 10/27/18 16:49 92 24 40 10/27/18 16:30 77 15 95/66 (76) 100 10/27/18 16:00 90 10/27/18 16:00 40 10/27/18 16:00 Mechanical Ventilator 10/27/18 16:00 98.8 70 15 90/58 (69) 100 10/27/18 15:30 71 15 92/60 (71) 100 10/27/18 15:00 73 15 88/58 (68) 100 10/27/18 14:50 91 28 40 10/27/18 14:30 72 15 90/62 (71) 100 10/27/18 14:00 74 15 92/65 (74) 100 10/27/18 14:00 90/48 10/27/18 13:30 78 15 110/70 (83) 100 10/27/18 13:09 91 27 40 10/27/18 13:00 71 15 118/72 (87) 100 10/27/18 12:30 74 15 115/74 (88) 100 10/27/18 12:00 40 10/27/18 12:00 91 10/27/18 12:00 Mechanical Ventilator 10/27/18 12:00 98.8 70 15 108/70 (83) 100 10/27/18 11:30 71 15 110/75 (87) 100 10/27/18 11:30 40 10/27/18 11:25 101 24 40 10/27/18 11:00 78 18 112/74 (87) 100 10/27/18 10:30 77 18 108/72 (84) 100 10/27/18 10:00 75 17 105/70 (82) 100 10/27/18 09:30 78 17 110/55 (73) 100 10/27/18 09:00 78 17 95/50 (65) 100 10/27/18 08:54 98/46 10/27/18 08:53 98/45 10/27/18 08:40 100 10/27/18 08:40 40 10/27/18 08:40 87 28 40 10/27/18 08:30 85 17 94/48 (63) 100 10/27/18 08:00 Mechanical Ventilator 10/27/18 08:00 40 10/27/18 08:00 88 10/27/18 08:00 88 16 92/48 (63) 100 10/27/18 07:30 98.9 88 15 98/52 (67) 100 10/27/18 07:01 85 0 95/50 (65) 100 10/27/18 06:45 85 0 94/50 (65) 100 10/27/18 06:40 83 24 40 10/27/18 06:30 87 11 93/41 (58) 100 10/27/18 06:15 86 23 87/44 (58) 100 10/27/18 06:00 98/40 10/27/18 06:00 85 24 98/40 (59) 100 10/27/18 05:45 83 23 87/43 (58) 100 10/27/18 05:30 85 23 87/43 (58) 100 10/27/18 05:15 85 23 90/35 (53) 100 10/27/18 05:00 89/45 10/27/18 05:00 88 26 89/45 (60) 100 10/27/18 04:47 85 22 40 10/27/18 04:45 89 8 92/42 (59) 100 10/27/18 04:30 93 30 91/37 (55) 98 10/27/18 04:00 Mechanical Ventilator 10/27/18 04:00 104/48 10/27/18 04:00 40 10/27/18 04:00 98.0 86 16 104/48 (66) 100 10/27/18 04:00 85 10/27/18 03:45 85 12 87/43 (58) 100 10/27/18 03:30 85 24 96/40 (58) 100 10/27/18 03:15 85 24 92/50 (64) 100 10/27/18 03:00 85 23 87/43 (58) 100 10/27/18 03:00 87/43 10/27/18 02:56 83 23 40 10/27/18 02:45 84 23 93/41 (58) 100 10/27/18 02:30 84 0 85/42 (56) 100 10/27/18 02:15 85 0 92/35 (54) 100 10/27/18 02:00 85 3 91/37 (55) 100 10/27/18 02:00 91/37 10/27/18 01:45 86 10 91/46 (61) 100 10/27/18 01:30 86 6 90/52 (65) 100 10/27/18 01:15 86 19 92/41 (58) 100 10/27/18 01:00 88/34 10/27/18 01:00 87 13 88/34 (52) 100 10/27/18 00:45 85 22 90/39 (56) 100 10/27/18 00:45 88 24 40 10/27/18 00:30 87 10 84/43 (57) 100 10/27/18 00:15 86 20 85/48 (60) 100 10/27/18 00:00 40 10/27/18 00:00 98.4 86 22 97/43 (61) 100 10/27/18 00:00 Mechanical Ventilator 10/27/18 00:00 97/43 10/27/18 00:00 86 10/26/18 23:45 86 19 86/44 (58) 100 10/26/18 23:30 85 20 90/41 (57) 100 10/26/18 23:15 86 20 91/44 (60) 100 10/26/18 23:02 88 24 40 10/26/18 23:00 91/42 10/26/18 23:00 86 23 91/42 (58) 100 10/26/18 22:45 85 0 89/44 (59) 100 10/26/18 22:30 85 0 87/42 (57) 100 10/26/18 22:15 84 0 81/45 (57) 100 10/26/18 22:00 79/40 10/26/18 22:00 84 0 79/40 (53) 100 10/26/18 21:45 86 3 82/42 (55) 100 10/26/18 21:30 86 19 84/44 (57) 100 10/26/18 21:15 85 21 87/35 (52) 100 10/26/18 21:00 91/44 10/26/18 21:00 89 18 69/41 (50) 100 10/26/18 20:55 86 22 40 10/26/18 20:45 90 20 94/38 (56) 99 10/26/18 20:30 87 23 91/44 (60) 100 10/26/18 20:15 87 24 90/41 (57) 100 10/26/18 20:00 40 10/26/18 20:00 87 23 90/46 (61) 100 10/26/18 20:00 90/46 10/26/18 20:00 Mechanical Ventilator 10/26/18 20:00 87 General Appearance: no apparent distress, alert, on vent Cardiovascular: normal rate Respiratory/Chest: lungs clear - ant Abdomen: non tender Extremities: severe edema Intake and Output 10/26/18 10/27/18 19:00 07:00 Intake Total 726.55 ml 925.59 ml Output Total 100 ml 200 ml Balance 626.55 ml 725.59 ml IV Total 246.55 ml 455.59 ml Tube Feeding 480 ml 440 ml Other 30 ml Output Urine Total 0 ml 0 ml Stool Total 100 ml 200 ml Laboratory Tests Test 10/27/18 05:30 White Blood Count 13.8 K/UL (4.8-10.8) H Red Blood Count 3.08 M/UL (4.70-6.10) L Hemoglobin 8.6 G/DL (14.2-18.0) L Hematocrit 27.0 % (42.0-52.0) L Mean Corpuscular Volume 88 FL (80-99) Mean Corpuscular Hemoglobin 27.8 PG (27.0-31.0) Mean Corpuscular Hemoglobin Concent 31.7 G/DL (32.0-36.0) L Red Cell Distribution Width 24.5 % (11.6-14.8) H Platelet Count 67 K/UL (150-450) #L Mean Platelet Volume 9.2 FL (6.5-10.1) Neutrophils (%) (Auto) % (45.0-75.0) Lymphocytes (%) (Auto) % (20.0-45.0) Monocytes (%) (Auto) % (1.0-10.0) Eosinophils (%) (Auto) % (0.0-3.0) Basophils (%) (Auto) % (0.0-2.0) Sodium Level 123 MMOL/L (136-145) L Potassium Level 3.4 MMOL/L (3.5-5.1) L Chloride Level 87 MMOL/L (98-107) L Carbon Dioxide Level 21 MMOL/L (21-32) Anion Gap 15 mmol/L (5-15) Blood Urea Nitrogen 82 mg/dL (7-18) H Creatinine 5.0 MG/DL (0.55-1.30) H Estimat Glomerular Filtration Rate mL/min (>60) Glucose Level 148 MG/DL (74-106) H Calcium Level 6.8 MG/DL (8.5-10.1) L Total Bilirubin 4.4 MG/DL (0.2-1.0) H Direct Bilirubin 3.7 MG/DL (0.0-0.3) H Aspartate Amino Transf (AST/SGOT) 169 U/L (15-37) H Alanine Aminotransferase (ALT/SGPT) 168 U/L (12-78) H Alkaline Phosphatase 298 U/L (46-116) H Total Protein 5.3 G/DL (6.4-8.2) L Albumin 1.5 G/DL (3.4-5.0) L Globulin 3.8 g/dL Albumin/Globulin Ratio 0.4 (1.0-2.7) L Random Vancomycin Level 20.2 ug/mL Dg Key MD Oct 27, 2018 19:59
--- NOTE | 2018-10-27 20:00 | NUR ---
NURSE NOTES: Patient repositioned, oral care provided, pressors ongoing, slowly titrating down. Feeds ongoing, will continue to monitor.
--- NOTE | 2018-10-27 20:24 | Neurology Progress Note ---
Interim History Interim History Interim History Mr. Gann feels better. He continues to be much more responsive. He opens his eyes on vocal stimulation. He is able to give yes/no answers. He follows commands consistently He is still moving his left side better than the right. He continues to be on a single pressor. He continues to be intubated and artificially ventilated. He still has significant anasarca. He continues to be acutely ill. Review of Systems Neuro Review of Systems Unable to obtain. Objective Physical Exam Last Vital Signs Date Time Temp Pulse Resp B/P (MAP) Pulse Ox O2 Delivery O2 Flow Rate FiO2 10/27/18 19:00 70 20 104/50 (68) 100 10/27/18 16:49 40 10/27/18 16:00 Mechanical Ventilator 10/27/18 16:00 98.8 10/20/18 16:23 40.0 Laboratory Tests Test 10/27/18 05:30 White Blood Count 13.8 K/UL (4.8-10.8) H Red Blood Count 3.08 M/UL (4.70-6.10) L Hemoglobin 8.6 G/DL (14.2-18.0) L Hematocrit 27.0 % (42.0-52.0) L Mean Corpuscular Volume 88 FL (80-99) Mean Corpuscular Hemoglobin 27.8 PG (27.0-31.0) Mean Corpuscular Hemoglobin Concent 31.7 G/DL (32.0-36.0) L Red Cell Distribution Width 24.5 % (11.6-14.8) H Platelet Count 67 K/UL (150-450) #L Mean Platelet Volume 9.2 FL (6.5-10.1) Neutrophils (%) (Auto) % (45.0-75.0) Lymphocytes (%) (Auto) % (20.0-45.0) Monocytes (%) (Auto) % (1.0-10.0) Eosinophils (%) (Auto) % (0.0-3.0) Basophils (%) (Auto) % (0.0-2.0) Sodium Level 123 MMOL/L (136-145) L Potassium Level 3.4 MMOL/L (3.5-5.1) L Chloride Level 87 MMOL/L (98-107) L Carbon Dioxide Level 21 MMOL/L (21-32) Anion Gap 15 mmol/L (5-15) Blood Urea Nitrogen 82 mg/dL (7-18) H Creatinine 5.0 MG/DL (0.55-1.30) H Estimat Glomerular Filtration Rate mL/min (>60) Glucose Level 148 MG/DL (74-106) H Calcium Level 6.8 MG/DL (8.5-10.1) L Total Bilirubin 4.4 MG/DL (0.2-1.0) H Direct Bilirubin 3.7 MG/DL (0.0-0.3) H Aspartate Amino Transf (AST/SGOT) 169 U/L (15-37) H Alanine Aminotransferase (ALT/SGPT) 168 U/L (12-78) H Alkaline Phosphatase 298 U/L (46-116) H Total Protein 5.3 G/DL (6.4-8.2) L Albumin 1.5 G/DL (3.4-5.0) L Globulin 3.8 g/dL Albumin/Globulin Ratio 0.4 (1.0-2.7) L Random Vancomycin Level 20.2 ug/mL Neurologic Exam Objective PHYSICAL EXAMINATION: GENERAL: He is a well-developed, relatively well-nourished, gentleman , lying in an ICU bed, connected to a ventilator through an orotracheal tube. HEAD: Normocephalic and atraumatic. NECK: No neck rigidity was observed. EENT: Benign. NEUROLOGICAL EXAMINATION: MENTAL STATUS EXAMINATION: He opened his eyes on vocal stimuli. He was brighter. He followed simple commands well. He was able to communicate with yes/no answers. Further mental status testing was impossible. SPEECH: Could not be tested. LANGUAGE: He was able to comprehend well and mouth a few words. CRANIAL NERVE EXAMINATION: II: He did blink to threat. He counted fingers. III, IV & : The external ocular movements were present. The pupils were 3 mm in diameter, equal, round, regular, and did not react to light. V & VII: The corneal reflexes were present bilaterally, but significantly diminished on the right side compared to the left. VIII: He did not respond to sounds and had no nystagmus. IX & X: The gag reflex was absent on manipulating the endotracheal tube. XI: The sternocleidomastoids and trapezii did not function. XII: Could not be tested adequately. MOTOR SYSTEM: The tone was normal in all four extremities. Examination of muscle mass revealed no focal wasting. Examination of power was impossible to perform accurately he moved his left side better than the right. SENSORY EXAMINATION: He responded appropriately to deep pain. He was unable to cooperate for other sensory modalities. REFLEXES: Trace+ and bilaterally symmetrical at the biceps, triceps, brachioradialis. 0 at both knees and ankles. The plantar response was extensor on the right and mute on the left. COORDINATION, STANCE & GAIT: Could not be tested. ABNORMAL MOVEMENTS: Tremor (7-8 Hz): 0/4 Impression/Recommendations Diagnostic Impression 1. Mr. Marla Gann is an 83-year-old, gentleman, of unknown handedness, with a past history of multiple medical problems including hypertension, diabetes mellitus, dyslipidemia, aortic stenosis, vitamin B12 deficiency, vitamin D deficiency, coronary artery disease, congestive heart failure, and intestinal pathology. He was hospitalized on 10/09/2018 for an altered mental state related to multiple metabolic imbalances. He did improve, but then in the hospital, he has had multiple further episodes of hypoglycemia. On the morning of 10/19/18, his blood sugar dropped to 22. He has also had problems with his respiratory function, progressive renal dysfunction, and on the morning of 10/19/18 was noted to have weakness in his right upper extremity, this problem continues. 2. He feels better. He continues to be much more responsive. He opens his eyes on vocal stimulation. He is able to give yes/no answers. He follows commands consistently. He is still moving his left side better than the right. He continues to be on a single pressor. He continues to be intubated and artificially ventilated. He still has significant anasarca. He continues to be acutely ill. 3. On neurological examination, at this time, he opens his eyes on vocal stimuli , he is able to follow commands consistently. He is able to communicate with yes /no answers, however further mental status testing is impossible. The corneal reflex is definitely diminished on the right side compared to the left. 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 His deep tendon reflexes are globally diminished in the upper extremities and lost in the lower extremities. His plantar response is extensor on the right and mute on the left. He has no tremor. 4. His laboratory data on my initial evaluation revealed that his WBC count was elevated to 16,000. His hemoglobin was low at 7.2 G. His arterial blood gas revealed a pH of 7.18, a pCO2 of 43, and a pO2 of 112. His chemistry panel revealed a sodium of 133, potassium of 5.3, chloride of 91, BUN at 89, creatinine at 5.2, and blood glucose at 22. 5. His EEG done on 10/19/18 revealed a moderately severe encephalopathy with a definite toxic/metabolic component. 6. The Repeat EEG done on 10/23/18 revealed a moderately severe toxic/metabolic encephalopathy. In addition left > right hemispheric dysfunction was seen. The abnormal movements had no EEG correlate. 7. The CT of the brain was benign for acute pathology. 8. His latest laboratory tests reveal that his leukocytosis is worse with a WBC count of 26,300. He is severely hyponatremic with a Na of 121 and chloride of 86. His BUN is elevated at 72 with a creatinine of 4.9. His LFTs are elevated and so is his glucose. 9. The patient's history, neurological examination, and laboratory data are most compatible with a significant toxic metabolic encephalopathy that brought him into the hospital, and now possibly an acute cerebral lesion causing the right hemiparesis. 10. The left UE movement was a tremor. It has now resolved. However the EEG while he was having the tremor revealed no EEG correlate. 11. His encephalopathy continues to improve. Recommendations 1. Continue present management. 2. Continue to correct toxic metabolic imbalances. 3. Try to keep the blood pressure >110 mmHg systolic. 4. When possible get MRI of brain. 5. Observe closely in ICU setting. Abram Johnson M.D., M.S.P.H. Abram Johnson MD Oct 27, 2018 20:24
[2018-10-27] MEDS: Atorvastatin 20mg tab ORAL SCH (20:39)
[2018-10-27] MEDS: Latanoprost 0.005% Opth 2.5ml Soln BOTH EYES SCH (20:40)
[2018-10-27] MEDS: Dyna-Hex 2% Top Sol 2oz TOPIC SCH (20:40)
[2018-10-27] MEDS ORDERED: Vancomycin 1gm/D5W 275ml IVPB SCH ×2 (21:00)
--- NOTE | 2018-10-27 21:12 | General Progress Note ---
Assessment/Plan Assessment/Plan ASSESSMENT/RECS: # Thrombocytopenia -- multiple etiologies possible, has been on heparin gtt which was discontinued on 10/24 --> HIT antibody has been ordered and pending --> smear has been reviewed, no e/o schistocytes is noted --> duplex lower extremities ordered and is negative for dvt --> anemia panel has been reviewed and is negative for hemolysis --> obtain a flow cytometry to r/o leukemia/mds (has been ordered) results to appear under "pathology" # Leukocytosis likely related to underlying sepsis, flow cytometry is negative for underlying malignancy/no leukemia noted, no distinct immunophentype is noted --> r/o other underlying cuases --> on abx as per id, antifungals --> if stable, can consider a bone marrow biopsy given nucleated cells on the peripheral smear that are persistent # Respiratory failure on a vent --> as per pulm management # Hyponatremia on ivf as per nephro # Colonic distention, abnormal liver function tests. --> as per gi # ESRD on hd as per vip --> on hd The timing of this note does not necessarily reflect the time of the patient was seen. Greatly appreciate consultation! Subjective ROS Limited/Unobtainable: Yes Allergies: Coded Allergies: PENICILLINS (Verified Allergy, Unknown, 10/09/18) Subjective 10/25: pt was seen in ICU , more alert today, no acute events reported. plt 64, wbc 19, flow cytometry ordered, off heparin gtt 10/26: in icu still, per rn is off heparin gtt, currently symptoms are better, no fevers or chills noted, on pressor but less 10/27:plt 67, intubated on 1 pressor , but now follows commands, no events Objective Last 24 Hour Vital Signs Date Time Temp Pulse Resp B/P (MAP) Pulse Ox O2 Delivery O2 Flow Rate FiO2 10/27/18 20:15 91 22 93/37 (55) 100 10/27/18 20:00 98.1 89 23 95/42 (59) 100 10/27/18 20:00 Mechanical Ventilator 10/27/18 20:00 40 10/27/18 20:00 85 10/27/18 19:45 90 24 94/40 (58) 100 10/27/18 19:30 91 23 94/37 (56) 100 10/27/18 19:00 70 20 104/50 (68) 100 10/27/18 18:30 75 20 102/45 (64) 100 10/27/18 18:00 90 20 106/68 (81) 100 10/27/18 17:30 70 20 98/65 (76) 100 10/27/18 17:00 74 15 94/62 (73) 100 10/27/18 16:49 92 24 40 10/27/18 16:30 77 15 95/66 (76) 100 10/27/18 16:00 90 10/27/18 16:00 40 10/27/18 16:00 Mechanical Ventilator 10/27/18 16:00 98.8 70 15 90/58 (69) 100 10/27/18 15:30 71 15 92/60 (71) 100 10/27/18 15:00 73 15 88/58 (68) 100 10/27/18 14:50 91 28 40 10/27/18 14:30 72 15 90/62 (71) 100 10/27/18 14:00 74 15 92/65 (74) 100 10/27/18 14:00 90/48 10/27/18 13:30 78 15 110/70 (83) 100 10/27/18 13:09 91 27 40 10/27/18 13:00 71 15 118/72 (87) 100 10/27/18 12:30 74 15 115/74 (88) 100 10/27/18 12:00 40 10/27/18 12:00 91 10/27/18 12:00 Mechanical Ventilator 10/27/18 12:00 98.8 70 15 108/70 (83) 100 10/27/18 11:30 71 15 110/75 (87) 100 10/27/18 11:30 40 10/27/18 11:25 101 24 40 10/27/18 11:00 78 18 112/74 (87) 100 10/27/18 10:30 77 18 108/72 (84) 100 10/27/18 10:00 75 17 105/70 (82) 100 10/27/18 09:30 78 17 110/55 (73) 100 10/27/18 09:00 78 17 95/50 (65) 100 10/27/18 08:54 98/46 10/27/18 08:53 98/45 10/27/18 08:40 100 2/20/19 08:40 40 10/27/18 08:40 87 28 40 10/27/18 08:30 85 17 94/48 (63) 100 10/27/18 08:00 Mechanical Ventilator 10/27/18 08:00 40 10/27/18 08:00 88 10/27/18 08:00 88 16 92/48 (63) 100 10/27/18 07:30 98.9 88 15 98/52 (67) 100 10/27/18 07:01 85 0 95/50 (65) 100 10/27/18 06:45 85 0 94/50 (65) 100 10/27/18 06:40 83 24 40 10/27/18 06:30 87 11 93/41 (58) 100 10/27/18 06:15 86 23 87/44 (58) 100 10/27/18 06:00 98/40 10/27/18 06:00 85 24 98/40 (59) 100 10/27/18 05:45 83 23 87/43 (58) 100 10/27/18 05:30 85 23 87/43 (58) 100 10/27/18 05:15 85 23 90/35 (53) 100 10/27/18 05:00 89/45 10/27/18 05:00 88 26 89/45 (60) 100 10/27/18 04:47 85 22 40 10/27/18 04:45 89 8 92/42 (59) 100 10/27/18 04:30 93 30 91/37 (55) 98 10/27/18 04:00 Mechanical Ventilator 10/27/18 04:00 104/48 10/27/18 04:00 40 10/27/18 04:00 98.0 86 16 104/48 (66) 100 10/27/18 04:00 85 10/27/18 03:45 85 12 87/43 (58) 100 10/27/18 03:30 85 24 96/40 (58) 100 10/27/18 03:15 85 24 92/50 (64) 100 10/27/18 03:00 85 23 87/43 (58) 100 10/27/18 03:00 87/43 10/27/18 02:56 83 23 40 10/27/18 02:45 84 23 93/41 (58) 100 10/27/18 02:30 84 0 85/42 (56) 100 10/27/18 02:15 85 0 92/35 (54) 100 10/27/18 02:00 85 3 91/37 (55) 100 10/27/18 02:00 91/37 10/27/18 01:45 86 10 91/46 (61) 100 10/27/18 01:30 86 6 90/52 (65) 100 10/27/18 01:15 86 19 92/41 (58) 100 10/27/18 01:00 88/34 10/27/18 01:00 87 13 88/34 (52) 100 10/27/18 00:45 85 22 90/39 (56) 100 10/27/18 00:45 88 24 40 10/27/18 00:30 87 10 84/43 (57) 100 10/27/18 00:15 86 20 85/48 (60) 100 10/27/18 00:00 40 10/27/18 00:00 98.4 86 22 97/43 (61) 100 10/27/18 00:00 Mechanical Ventilator 10/27/18 00:00 97/43 10/27/18 00:00 86 10/26/18 23:45 86 19 86/44 (58) 100 10/26/18 23:30 85 20 90/41 (57) 100 10/26/18 23:15 86 20 91/44 (60) 100 10/26/18 23:02 88 24 40 10/26/18 23:00 91/42 10/26/18 23:00 86 23 91/42 (58) 100 10/26/18 22:45 85 0 89/44 (59) 100 10/26/18 22:30 85 0 87/42 (57) 100 10/26/18 22:15 84 0 81/45 (57) 100 10/26/18 22:00 79/40 10/26/18 22:00 84 0 79/40 (53) 100 10/26/18 21:45 86 3 82/42 (55) 100 10/26/18 21:30 86 19 84/44 (57) 100 10/26/18 21:15 85 21 87/35 (52) 100 Intake and Output 10/26/18 10/27/18 19:00 07:00 Intake Total 726.55 ml 925.59 ml Output Total 100 ml 200 ml Balance 626.55 ml 725.59 ml IV Total 246.55 ml 455.59 ml Tube Feeding 480 ml 440 ml Other 30 ml Output Urine Total 0 ml 0 ml Stool Total 100 ml 200 ml Laboratory Tests 10/27/18 05:30: White Blood Count 13.8H, Red Blood Count 3.08L, Hemoglobin 8.6L, Hematocrit 27.0L, Mean Corpuscular Volume 88, Mean Corpuscular Hemoglobin 27.8, Mean Corpuscular Hemoglobin Concent 31.7L, Red Cell Distribution Width 24.5H, Platelet Count 67#L, Mean Platelet Volume 9.2, Neutrophils (%) (Auto) , Lymphocytes (%) (Auto) , Monocytes (%) (Auto) , Eosinophils (%) (Auto) , Basophils (%) (Auto) , Sodium Level 123L, Potassium Level 3.4L, Chloride Level 87L, Carbon Dioxide Level 21, Anion Gap 15, Blood Urea Nitrogen 82H, Creatinine 5.0H, Estimat Glomerular Filtration Rate , Glucose Level 148H, Calcium Level 6.8L, Total Bilirubin 4.4H, Direct Bilirubin 3.7H, Aspartate Amino Transf (AST/ SGOT) 169H, Alanine Aminotransferase (ALT/SGPT) 168H, Alkaline Phosphatase 298H , Total Protein 5.3L, Albumin 1.5L, Globulin 3.8, Albumin/Globulin Ratio 0.4L, Random Vancomycin Level 20.2 Height (Feet): 5 Height (Inches): 2.00 Weight (Pounds): 198 Objective PHYSICAL EXAMINATION: VITAL SIGNS: reviewed HEENT: Normocephalic and atraumatic. Mild scleral icterus. NECK: Supple. On vent CARDIOVASCULAR: Tachycardic. Regular rr, Plus S1, S2. There is a soft murmur at the left sternal border. LUNGS: ++ vent ABDOMEN: Distended, tympanic to percussion. Hypoactive bowel sounds. EXTREMITIES: No cyanosis, no clubbing, no edema. NEUROLOGIC: More alert Rah Ferreira MD Oct 27, 2018 21:12
--- NOTE | 2018-10-27 22:00 | NUR ---
NURSE NOTES: Repositioned patient, rectal tube intact, pressors ongoing, NAD, patient suctioned. Afebrile.
[2018-10-28] VITALS (48 sets, daily range): BP systolic 63–117; BP diastolic 29–58
--- NOTE | 2018-10-28 | NUR ---
NURSE NOTES: Patient repositioned, rectal tube remains intact. Pressors ongoing, oral care given. NAD.
[2018-10-28] MEDS: NovoLOG Insulin Flexpen SUBQ SCH ×6 (00:27→21:00)
--- NOTE | 2018-10-28 02:00 | NUR ---
NURSE NOTES: Repositioned, oral care, NAD, pressors ongoing.
[2018-10-28] MEDS: Norepinephrine Bitartrate 16 MG in D5W 500ml 484 ML IV SCH ×2 (03:28→23:36)
--- NOTE | 2018-10-28 04:00 | NUR ---
NURSE NOTES: Repositioned, oral care provided, pressors ongoing. Lab sent, patient cleaned, dressings changed.
[2018-10-28 05:40] LABS: HEMATOCRIT 26.5 % (42.0-52.0); HEMOGLOBIN 8.6 G/DL (14.2-18.0); MEAN CORPUSCULAR VOLUME 88 FL (80-99); PLATELET COUNT 75 K/UL (150-450); RED BLOOD COUNT 3.02 M/UL (4.70-6.10); RED CELL DISTRIBUTION WIDTH 24.3 % (11.6-14.8); WHITE BLOOD COUNT 14.5 K/UL (4.8-10.8)
[2018-10-28 05:51] LABS: INR 1.3 (0.9-1.1)
--- NOTE | 2018-10-28 06:00 | NUR ---
NURSE NOTES: Patient repositioned, oral care provided, morning meds given. BP remains stable with pressors.
[2018-10-28 06:39] LABS: ALANINE AMINOTRANSFERASE 137 U/L (12-78); ALBUMIN 1.4 G/DL (3.4-5.0); ALBUMIN/GLOBULIN RATIO 0.4 (1.0-2.7); ALKALINE PHOSPHATASE 317 U/L (46-116); ANION GAP 12 mmol/L (5-15); BILIRUBIN,TOTAL 4.4 MG/DL (0.2-1.0); BLOOD UREA NITROGEN 67 mg/dL (7-18); CALCIUM 6.6 MG/DL (8.5-10.1); CARBON DIOXIDE 24 MMOL/L (21-32); CHLORIDE 90 MMOL/L (98-107); CREATININE 4.1 MG/DL (0.55-1.30); POTASSIUM 3.6 MMOL/L (3.5-5.1); SODIUM 126 MMOL/L (136-145)
[2018-10-28 06:44] LABS: BILIRUBIN,DIRECT 3.7 MG/DL (0.0-0.3)
[2018-10-28 06:51] LABS: ASPARTATE AMINO TRANSFERASE 158 U/L (15-37)
--- NOTE | 2018-10-28 06:55 | General Progress Note ---
Assessment/Plan Problem List: (1) CKD (chronic kidney disease) ICD Codes: N18.9 - Chronic kidney disease, unspecified SNOMED: 866880933 (2) Hypoglycemia ICD Codes: E16.2 - Hypoglycemia, unspecified SNOMED: 372037246 (3) Altered mental status ICD Codes: R41.82 - Altered mental status, unspecified SNOMED: 760866722 (4) Ventilator dependence ICD Codes: Z99.11 - Dependence on respirator [ventilator] status SNOMED: 512270267 (5) Hyponatremia ICD Codes: E87.1 - Hypo-osmolality and hyponatremia SNOMED: 02676363 Assessment/Plan glucose values are stable continue glucose monitoring every 4 hours - low dose Novolog coverage hypoglycemia protocol in order Subjective ROS Limited/Unobtainable: Yes Allergies: Coded Allergies: PENICILLINS (Verified Allergy, Unknown, 10/09/18) Subjective events noted Item Value Date Time Bedside Blood Glucose 186 mg/dl H 10/28/18 0500 Bedside Blood Glucose 175 mg/dl H 10/28/18 0100 Bedside Blood Glucose 136 mg/dl H 10/27/18 2100 Bedside Blood Glucose 108 mg/dl 10/27/18 1700 Bedside Blood Glucose 109 mg/dl 10/27/18 1300 Bedside Blood Glucose 134 mg/dl H 10/27/18 0900 Bedside Blood Glucose 152 mg/dl H 10/27/18 0534 Bedside Blood Glucose 109 mg/dl 10/27/18 0100 Objective Last 24 Hour Vital Signs Date Time Temp Pulse Resp B/P (MAP) Pulse Ox O2 Delivery O2 Flow Rate FiO2 10/28/18 06:30 86 20 96/45 (62) 100 10/28/18 06:00 85 22 98/49 (65) 100 10/28/18 05:30 84 27 99/51 (67) 100 10/28/18 05:29 83 27 40 10/28/18 05:00 85 20 95/42 (59) 100 10/28/18 04:30 85 24 99/48 (65) 100 10/28/18 04:00 97.6 86 23 102/45 (64) 100 10/28/18 04:00 90 10/28/18 04:00 40 10/28/18 04:00 Mechanical Ventilator 10/28/18 03:30 86 18 100/49 (66) 100 10/28/18 03:28 90/39 10/28/18 03:11 82 28 40 10/28/18 03:00 89 21 104/50 (68) 99 10/28/18 02:30 86 26 85/37 (53) 100 10/28/18 02:00 85 27 90/39 (56) 100 10/28/18 01:30 87 27 88/41 (57) 100 10/28/18 01:00 98.0 89 24 92/36 (54) 100 10/28/18 00:56 84 27 40 10/28/18 00:30 89 26 87/38 (54) 100 10/28/18 00:00 Mechanical Ventilator 10/28/18 00:00 87 27 85/45 (58) 100 10/28/18 00:00 90 10/28/18 00:00 40 10/27/18 23:30 83 26 96/74 (81) 100 10/27/18 23:15 83 28 40 10/27/18 23:00 86 25 90/56 (67) 100 10/27/18 22:30 86 13 86/42 (57) 100 10/27/18 22:00 88 22 90/45 (60) 100 10/27/18 21:46 87 25 40 10/27/18 21:45 87 25 86/34 (51) 100 10/27/18 21:30 90 22 92/37 (55) 100 10/27/18 21:23 89 24 Mechanical Ventilator 40 10/27/18 21:20 88 25 40 10/27/18 21:15 91 25 95/45 (62) 100 10/27/18 21:00 87 24 88/38 (55) 100 10/27/18 20:45 89 23 94/41 (58) 100 10/27/18 20:30 88 24 93/38 (56) 100 10/27/18 20:15 91 22 93/37 (55) 100 10/27/18 20:00 98.1 89 23 95/42 (59) 100 10/27/18 20:00 Mechanical Ventilator 10/27/18 20:00 40 10/27/18 20:00 85 10/27/18 19:45 90 24 94/40 (58) 100 10/27/18 19:30 91 23 94/37 (56) 100 10/27/18 19:00 70 20 104/50 (68) 100 10/27/18 18:30 75 20 102/45 (64) 100 10/27/18 18:00 90 20 106/68 (81) 100 10/27/18 17:30 70 20 98/65 (76) 100 10/27/18 17:00 74 15 94/62 (73) 100 10/27/18 16:49 92 24 40 10/27/18 16:30 77 15 95/66 (76) 100 10/27/18 16:00 90 10/27/18 16:00 40 10/27/18 16:00 Mechanical Ventilator 10/27/18 16:00 98.8 70 15 90/58 (69) 100 10/27/18 15:30 71 15 92/60 (71) 100 10/27/18 15:00 73 15 88/58 (68) 100 10/27/18 14:50 91 28 40 10/27/18 14:30 72 15 90/62 (71) 100 10/27/18 14:00 74 15 92/65 (74) 100 10/27/18 14:00 90/48 10/27/18 13:30 78 15 110/70 (83) 100 10/27/18 13:09 91 27 40 10/27/18 13:00 71 15 118/72 (87) 100 10/27/18 12:30 74 15 115/74 (88) 100 10/27/18 12:00 40 10/27/18 12:00 91 10/27/18 12:00 Mechanical Ventilator 10/27/18 12:00 98.8 70 15 108/70 (83) 100 10/27/18 11:30 71 15 110/75 (87) 100 10/27/18 11:30 40 10/27/18 11:25 101 24 40 10/27/18 11:00 78 18 112/74 (87) 100 10/27/18 10:30 77 18 108/72 (84) 100 10/27/18 10:00 75 17 105/70 (82) 100 10/27/18 09:30 78 17 110/55 (73) 100 10/27/18 09:00 78 17 95/50 (65) 100 10/27/18 08:54 98/46 10/27/18 08:53 98/45 10/27/18 08:40 100 10/27/18 08:40 40 10/27/18 08:40 87 28 40 10/27/18 08:30 85 17 94/48 (63) 100 10/27/18 08:00 Mechanical Ventilator 10/27/18 08:00 40 10/27/18 08:00 88 10/27/18 08:00 88 16 92/48 (63) 100 10/27/18 07:30 98.9 88 15 98/52 (67) 100 10/27/18 07:01 85 0 95/50 (65) 100 Intake and Output 10/27/18 10/28/18 19:00 07:00 Intake Total 836.24 ml 1323.75 ml Output Total 300 ml 300 ml Balance 536.24 ml 1023.75 ml IV Total 356.24 ml 883.75 ml Tube Feeding 480 ml 440 ml Stool Total 300 ml 300 ml Laboratory Tests 10/28/18 04:00: White Blood Count 14.5H, Red Blood Count 3.02L, Hemoglobin 8.6L, Hematocrit 26.5L, Mean Corpuscular Volume 88, Mean Corpuscular Hemoglobin 28.4, Mean Corpuscular Hemoglobin Concent 32.4, Red Cell Distribution Width 24.3H, Platelet Count 75L, Mean Platelet Volume 11.7H, Neutrophils (%) (Auto) , Lymphocytes (%) (Auto) , Monocytes (%) (Auto) , Eosinophils (%) (Auto) , Basophils (%) (Auto) , Neutrophils % (Manual) [Pending], Lymphocytes % (Manual) [Pending], Platelet Estimate [Pending], Platelet Morphology [Pending], Prothrombin Time 13.8H, Prothromb Time International Ratio 1.3H, Activated Partial Thromboplast Time 35H, Sodium Level 126L, Potassium Level 3.6, Chloride Level 90L, Carbon Dioxide Level 24, Anion Gap 12, Blood Urea Nitrogen 67H, Creatinine 4.1H, Estimat Glomerular Filtration Rate , Glucose Level 170H, Calcium Level 6.6L, Total Bilirubin 4.4H, Direct Bilirubin 3.7H, Aspartate Amino Transf (AST/SGOT) 158H, Alanine Aminotransferase (ALT/SGPT) 137H, Alkaline Phosphatase 317H, Total Protein 4.6L, Albumin 1.4L, Globulin 3.2, Albumin/Globulin Ratio 0.4L Height (Feet): 5 Height (Inches): 2.00 Weight (Pounds): 200 General Appearance: severe distress Neck: normal alignment Cardiovascular: tachycardia Respiratory/Chest: decreased breath sounds Abdomen: normal bowel sounds Objective Current Medications Medications (Trade) Dose Ordered Sig/Ashely Route PRN Reason Start Time Stop Time Status Last Admin Dose Admin Acetaminophen (Tylenol) 650 mg Q6H PRN ORAL Mild Pain/Temp > 100.5 10/18/18 16:30 11/08/18 04:23 Aspirin (Ecotrin) 81 mg DAILY ORAL 10/19/18 09:00 11/09/18 08:59 10/27/18 08:49 Atorvastatin Calcium (Lipitor) 40 mg BEDTIME ORAL 10/18/18 21:00 11/09/18 20:59 10/27/18 20:39 Calcium Carbonate (Tums) 500 mg BID GT 10/20/18 18:00 11/09/18 08:59 10/27/18 17:36 Chlorhexidine Gluconate (Anai-Hex 2%) 1 applic DAILY@2000 TOPIC 10/18/18 20:00 11/12/18 19:59 10/27/18 20:40 Dextrose (Dextrose 50%) 25 ml Q30M PRN IV Hypoglycemia 10/23/18 08:15 11/22/18 08:14 Dextrose (Dextrose 50%) 50 ml Q30M PRN IV Hypoglycemia 10/23/18 08:15 11/22/18 08:14 Dobutamine HCl 250 ml @ 10.05 mls/ hr Q24H IV 10/19/18 11:40 11/18/18 11:39 10/22/18 12:43 Dopamine HCl/ Dextrose 250 ml @ 0 mls/hr Q24H IV 10/19/18 12:45 11/18/18 12:44 10/20/18 17:43 Fluconazole/ Sodium Chloride 100 ml @ 100 mls/hr Q24H IV 10/22/18 20:00 10/29/18 19:59 10/27/18 20:00 Haloperidol Lactate (Haldol) 5 mg Q6H PRN IM Agitation 10/18/18 17:00 11/17/18 16:59 Insulin Aspart (NovoLOG) EVERY 4 HOURS SUBQ 10/23/18 09:00 11/22/18 08:59 10/28/18 04:27 Latanoprost (Xalatan) 1 drop BEDTIME BOTH EYES 10/18/18 21:00 11/10/18 20:59 10/27/18 20:40 Loperamide HCl (Imodium) 2 mg Q4H PRN ORAL Diarrhea 10/27/18 09:45 11/26/18 09:44 Meropenem 500 mg/ Sodium Chloride 50 ml @ 100 mls/hr Q24HRS IVPB 10/25/18 00:00 10/30/18 00:00 10/28/18 00:28 Norepinephrine Bitartrate 16 mg/ Dextrose 500 ml @ 0 mls/hr Q24H IV 10/20/18 18:00 11/19/18 17:59 10/28/18 03:28 Ondansetron HCl (Zofran) 4 mg Q8H PRN IVP Nausea & Vomiting 10/18/18 17:00 11/17/18 16:59 Pantoprazole (Protonix) 40 mg ACBREAKFAST ORAL 10/19/18 06:30 11/09/18 08:59 10/28/18 06:02 Promethazine HCl (Phenergan [place]) 6.25 mg Q6H PRN ORAL For Cough 10/18/18 16:45 11/10/18 04:32 Vancomycin HCl (Vanco rx to dose) 1 ea DAILY PRN MISC Per rx protocol 10/19/18 23:30 11/18/18 23:29 Vasopressin 100 units/Sodium Chloride 100 ml @ 2.4 mls/hr Q24H IV 10/22/18 15:00 11/21/18 14:59 10/25/18 15:13 Barry Schmitt MD Oct 28, 2018 06:55
--- NOTE | 2018-10-28 07:09 | NUR ---
RESPIRATORY NOTE: received pt intubated with ETT 7.5 placed 23cm a the lip. secured via anchor fast with no visible redness or skin tears. pt slightly tachypneic with RR of 28. alarms are on and audible with ambu bag at bedside. will follow weaning orders later this morning.
--- NOTE | 2018-10-28 07:33 | NUR ---
NURSE NOTES: Received report from Jimmie OSMAN. Pt asleep but arousable, alert and oriented x 2-3. Pt able to follow simple commands. Pt on cardiac cath technologist, SR. Pt orally intubated ETT 7.5, 23 cm lip line, AC 20, TV 500, 40% FIO2, PEEP 5. OGT with nepro at 40 cc/hr. Rectal tube intact draining brown liquid stool to gravity. KIM PICC intact and RIJ cem intact. Levophed running at 12 mcg/hr. Safety measures in place with bed locked and in lowest position, side rails x3 up and bed alarm on. Will continue to monitor and continue plan of care.
--- NOTE | 2018-10-28 08:22 | NUR ---
NURSE NOTES: Dr Ferreira here to see pt. No acute distress. Will continue to monitor.
[2018-10-28] MEDS: Aspirin EC 81mg tab ORAL SCH (08:35)
[2018-10-28] MEDS: Tums 500mg GT SCH ×2 (08:36→17:31)
--- NOTE | 2018-10-28 09:32 | Pulmonolgy Critical Care Note ---
Critical Care - Asmt/Plan Problems: (1) Respiratory failure, acute (2) Ventilator dependence (3) CHF (congestive heart failure) (4) CAD (coronary artery disease) (5) NSTEMI (non-ST elevated myocardial infarction) (6) Respiratory acidosis (7) Hemoptysis (8) Hypoglycemia (9) Pneumonia (10) Hypotension (11) Elevated d-dimer (12) Acute kidney injury superimposed on CKD Assessment & Plan: S/P initiation of HD (13) Hyponatremia (14) Sepsis Respiratory: monitor respiratory rate, adjust FIO2, other - SBT, possible extubation despite pressor requirments as patient has been stable and reanna SBT daily Cardiac: continue pressors - Titrate NE to keep MAP > 60, consider MIDODRINE to assist in weaning, continue to monitor HR/BP, other - F/U cards recs, UF as able Renal: F/U I&O, other - HD per renal with UF as able, would give albumin during HD to minimize BP drops Infectious Disease: continue antibiotics - Duong and Flucon per ID Gastrointestinal: hold feedings - pending possible extubation Endocrine: other - F/u ENDO recs Hematologic: monitor H/H, other - Monitor platelets, off HEP SQ, F/U HIT Ab panel Prophylaxis: Protonix, SCDs Disposition: keep in ICU Time Spent (Minutes): 40 Notes Reviewed: inspector bicycle, cardio, renal, ID Discussed with: nurses, consultants Critical Care - Objective Last 24 Hour Vital Signs Date Time Temp Pulse Resp B/P (MAP) Pulse Ox O2 Delivery O2 Flow Rate FiO2 10/28/18 09:05 86 28 40 10/28/18 09:00 87 12 92/45 (61) 100 10/28/18 08:30 87 3 91/40 (57) 100 10/28/18 08:00 Mechanical Ventilator 10/28/18 08:00 85 10/28/18 08:00 98.7 85 23 90/39 (56) 100 10/28/18 08:00 40 10/28/18 07:30 85 24 96/45 (62) 100 10/28/18 07:06 84 29 40 10/28/18 07:00 85 26 90/50 (63) 100 10/28/18 06:30 86 20 96/45 (62) 100 10/28/18 06:00 85 22 98/49 (65) 100 10/28/18 05:30 84 27 99/51 (67) 100 10/28/18 05:29 83 27 40 10/28/18 05:00 85 20 95/42 (59) 100 10/28/18 04:30 85 24 99/48 (65) 100 10/28/18 04:00 97.6 86 23 102/45 (64) 100 10/28/18 04:00 90 10/28/18 04:00 40 10/28/18 04:00 Mechanical Ventilator 10/28/18 03:30 86 18 100/49 (66) 100 10/28/18 03:28 90/39 10/28/18 03:11 82 28 40 10/28/18 03:00 89 21 104/50 (68) 99 10/28/18 02:30 86 26 85/37 (53) 100 10/28/18 02:00 85 27 90/39 (56) 100 10/28/18 01:30 87 27 88/41 (57) 100 10/28/18 01:00 98.0 89 24 92/36 (54) 100 10/28/18 00:56 84 27 40 10/28/18 00:30 89 26 87/38 (54) 100 10/28/18 00:00 Mechanical Ventilator 10/28/18 00:00 87 27 85/45 (58) 100 10/28/18 00:00 90 10/28/18 00:00 40 10/27/18 23:30 83 26 96/74 (81) 100 10/27/18 23:15 83 28 40 10/27/18 23:00 86 25 90/56 (67) 100 10/27/18 22:30 86 13 86/42 (57) 100 10/27/18 22:00 88 22 90/45 (60) 100 10/27/18 21:46 87 25 40 10/27/18 21:45 87 25 86/34 (51) 100 10/27/18 21:30 90 22 92/37 (55) 100 10/27/18 21:23 89 24 Mechanical Ventilator 40 10/27/18 21:20 88 25 40 10/27/18 21:15 91 25 95/45 (62) 100 10/27/18 21:00 87 24 88/38 (55) 100 10/27/18 20:45 89 23 94/41 (58) 100 10/27/18 20:30 88 24 93/38 (56) 100 10/27/18 20:15 91 22 93/37 (55) 100 10/27/18 20:00 98.1 89 23 95/42 (59) 100 10/27/18 20:00 Mechanical Ventilator 10/27/18 20:00 40 10/27/18 20:00 85 10/27/18 19:45 90 24 94/40 (58) 100 10/27/18 19:30 91 23 94/37 (56) 100 10/27/18 19:00 70 20 104/50 (68) 100 10/27/18 18:30 75 20 102/45 (64) 100 10/27/18 18:00 90 20 106/68 (81) 100 10/27/18 17:30 70 20 98/65 (76) 100 10/27/18 17:00 74 15 94/62 (73) 100 10/27/18 16:49 92 24 40 10/27/18 16:30 77 15 95/66 (76) 100 10/27/18 16:00 90 10/27/18 16:00 40 10/27/18 16:00 Mechanical Ventilator 10/27/18 16:00 98.8 70 15 90/58 (69) 100 10/27/18 15:30 71 15 92/60 (71) 100 10/27/18 15:00 73 15 88/58 (68) 100 10/27/18 14:50 91 28 40 10/27/18 14:30 72 15 90/62 (71) 100 10/27/18 14:00 74 15 92/65 (74) 100 10/27/18 14:00 90/48 10/27/18 13:30 78 15 110/70 (83) 100 10/27/18 13:09 91 27 40 10/27/18 13:00 71 15 118/72 (87) 100 10/27/18 12:30 74 15 115/74 (88) 100 10/27/18 12:00 40 10/27/18 12:00 91 10/27/18 12:00 Mechanical Ventilator 10/27/18 12:00 98.8 70 15 108/70 (83) 100 10/27/18 11:30 71 15 110/75 (87) 100 10/27/18 11:30 40 10/27/18 11:25 101 24 40 10/27/18 11:00 78 18 112/74 (87) 100 10/27/18 10:30 77 18 108/72 (84) 100 10/27/18 10:00 75 17 105/70 (82) 100 10/27/18 09:30 78 17 110/55 (73) 100 Status: awake, other - intubated Condition: improving HEENT: atraumatic, normocephalic Neck: full ROM Lungs: clear Heart: HR/BP unstable Abdomen: soft, non-tender, active bowel sounds Extremities: no C/C/E Accucheck: 179 Blood Sugars: BS controlled Critical Care - Subjective ROS Limited/Unobtainable: Yes ICU Day: 11 Intubation Day: 10 Interval Events: S/P HD - 1L (not reflected in I/O) Condition: stable IV Access: PICC, central EKG Rhythm: Sinus Rhythm FI02: 40 Vent Support Breath Rate: 20 Vent Support Mode: AC Vent Tidal Volume: 500 Sputum Amount: Scant PEEP: 5.0 PIP: 40 Secretions: None Fluids: SLIV Drips: NE 12 Tube Feeding Amount: 40 I&O: Intake and Output 10/27/18 10/28/18 19:00 07:00 Intake Total 836.24 ml 1397.50 ml Output Total 300 ml 300 ml Balance 536.24 ml 1097.50 ml IV Total 356.24 ml 917.50 ml Tube Feeding 480 ml 480 ml Stool Total 300 ml 300 ml Subjective: ZACHARY ET-Tube: 7.5 ET Position: 23 Labs: Laboratory Tests Test 10/28/18 04:00 White Blood Count 14.5 K/UL (4.8-10.8) H Red Blood Count 3.02 M/UL (4.70-6.10) L Hemoglobin 8.6 G/DL (14.2-18.0) L Hematocrit 26.5 % (42.0-52.0) L Mean Corpuscular Volume 88 FL (80-99) Mean Corpuscular Hemoglobin 28.4 PG (27.0-31.0) Mean Corpuscular Hemoglobin Concent 32.4 G/DL (32.0-36.0) Red Cell Distribution Width 24.3 % (11.6-14.8) H Platelet Count 75 K/UL (150-450) L Mean Platelet Volume 11.7 FL (6.5-10.1) H Neutrophils (%) (Auto) % (45.0-75.0) Lymphocytes (%) (Auto) % (20.0-45.0) Monocytes (%) (Auto) % (1.0-10.0) Eosinophils (%) (Auto) % (0.0-3.0) Basophils (%) (Auto) % (0.0-2.0) Differential Total Cells Counted 100 Neutrophils % (Manual) 96 % (45-75) H Lymphocytes % (Manual) 3 % (20-45) L Monocytes % (Manual) 1 % (1-10) Eosinophils % (Manual) 0 % (0-3) Basophils % (Manual) 0 % (0-2) Band Neutrophils 0 % (0-8) Platelet Estimate Decreased L Platelet Morphology Normal Polychromasia 2+ Hypochromasia 1+ Anisocytosis 3+ Prothrombin Time 13.8 SEC (9.30-11.50) H Prothromb Time International Ratio 1.3 (0.9-1.1) H Activated Partial Thromboplast Time 35 SEC (23-33) H Sodium Level 126 MMOL/L (136-145) L Potassium Level 3.6 MMOL/L (3.5-5.1) Chloride Level 90 MMOL/L (98-107) L Carbon Dioxide Level 24 MMOL/L (21-32) Anion Gap 12 mmol/L (5-15) Blood Urea Nitrogen 67 mg/dL (7-18) H Creatinine 4.1 MG/DL (0.55-1.30) H Estimat Glomerular Filtration Rate mL/min (>60) Glucose Level 170 MG/DL (74-106) H Calcium Level 6.6 MG/DL (8.5-10.1) L Total Bilirubin 4.4 MG/DL (0.2-1.0) H Direct Bilirubin 3.7 MG/DL (0.0-0.3) H Aspartate Amino Transf (AST/SGOT) 158 U/L (15-37) H Alanine Aminotransferase (ALT/SGPT) 137 U/L (12-78) H Alkaline Phosphatase 317 U/L (46-116) H Total Protein 4.6 G/DL (6.4-8.2) L Albumin 1.4 G/DL (3.4-5.0) L Globulin 3.2 g/dL Albumin/Globulin Ratio 0.4 (1.0-2.7) L Chidi Bourne MD Oct 28, 2018 09:31
--- NOTE | 2018-10-28 09:40 | NUR ---
RESPIRATORY NOTE: pt placed on CPAP PS-8 for weaning trial. JACQUI, Krystal kumari.
--- NOTE | 2018-10-28 09:45 | NUR ---
NURSE NOTES: Dr Bourne here to see pt. Dr started weaning pt off vent, possible extubation later today. Will continue to monitor.
--- NOTE | 2018-10-28 09:56 | NUR ---
RADIOLOGY DEPT CHEST X-RAY DONE.-P.DYE
--- NOTE | 2018-10-28 10:49 | NUR ---
RESPIRATORY NOTE: pt has been on CPAP PS-8 for about an hour, RSBI fluctuating from 110-125
--- NOTE | 2018-10-28 10:59 | Diagnostic Imaging Report ---
Indication: Dyspnea Technique: One view of the chest Comparison: 10/26/2018 Findings: Gastric tube appears retracted, tip projecting at or just beyond the gastroesophageal junction. Stable satisfactory position of endotracheal tube, left arm PICC, right jugular temporary dialysis catheter. There is increased airspace consolidation in the right mid and lower lung. There is suggestion of increased retrocardiac opacity, although suspect that this is an artifact of decreased exposure as compared to prior study. Bilateral pleural effusions are again demonstrated. Impression: New or increased infiltrate in the right mid and lower lung Somewhat high position of gastric tube; advancement recommended. This finding was phoned to ICU charge nurse Brenda at the time of interpretation. Other stable findings as described
--- NOTE | 2018-10-28 11:08 | NUR ---
NURSE NOTES: Dr Hawley here to see pt, no new orders. Informed Dr Bourne of ABG and RSBI after wean, wants to keep pt intubated for now. Will continue to monitor.
[2018-10-28] MEDS: DOBUTamine 250mg/250ml Premix 250 ML IV SCH (11:40)
[2018-10-28] MEDS: DOPamine 400mg/250ml 250 ML IV SCH (11:45)
--- NOTE | 2018-10-28 12:07 | General Progress Note ---
Assessment/Plan Problem List: (1) Elevated LFTs ICD Codes: R94.5 - Abnormal results of liver function studies SNOMED: 774548226, 556227550 (2) Fatty liver ICD Codes: K76.0 - Fatty (change of) liver, not elsewhere classified SNOMED: 881945339 (3) History of cholecystectomy ICD Codes: Z90.49 - Acquired absence of other specified parts of digestive tract SNOMED: 59024066, 888661398 (4) Thrombocytopenia ICD Codes: D69.6 - Thrombocytopenia, unspecified SNOMED: 802187362 (5) possible panreatitis (6) Sepsis ICD Codes: A41.9 - Sepsis, unspecified organism SNOMED: 95527200 (7) Ventilator dependence ICD Codes: Z99.11 - Dependence on respirator [ventilator] status SNOMED: 473065730 (8) Hyponatremia ICD Codes: E87.1 - Hypo-osmolality and hyponatremia SNOMED: 19812276 (9) Respiratory failure, acute ICD Codes: J96.00 - Acute respiratory failure, unspecified whether with hypoxia or hypercapnia SNOMED: 02639509 (10) Acute metabolic encephalopathy ICD Codes: G93.41 - Metabolic encephalopathy SNOMED: 26618948, 791280640 (11) Pneumonia ICD Codes: J18.9 - Pneumonia, unspecified organism SNOMED: 598696196 (12) Hypotension ICD Codes: I95.9 - Hypotension, unspecified SNOMED: 93969945 (13) CAD (coronary artery disease) ICD Codes: I25.10 - Atherosclerotic heart disease of [place] coronary artery without angina pectoris SNOMED: 68236030 Assessment/Plan us reviewed no dilated CBD fu lfts elevated LFTS due to meds vs ischemia will dc TYL, protonix and lipitor no need for ERCP at this time ngtf repeat labs supportive care rectal tube on HD plan CT for today weaning failed Subjective ROS Limited/Unobtainable: No Allergies: Coded Allergies: PENICILLINS (Verified Allergy, Unknown, 10/09/18) Objective Last 24 Hour Vital Signs Date Time Temp Pulse Resp B/P (MAP) Pulse Ox O2 Delivery O2 Flow Rate FiO2 10/28/18 11:30 95 20 103/51 (68) 100 10/28/18 11:00 108 24 108/52 (70) 99 10/28/18 10:47 109 32 40 10/28/18 10:30 108 28 105/53 (70) 100 10/28/18 10:00 108 27 112/58 (76) 98 10/28/18 09:39 9 10/28/18 09:30 95 0 91/46 (61) 98 10/28/18 09:05 86 28 40 10/28/18 09:00 87 12 92/45 (61) 100 10/28/18 08:30 87 3 91/40 (57) 100 10/28/18 08:00 Mechanical Ventilator 10/28/18 08:00 85 10/28/18 08:00 98.7 85 23 90/39 (56) 100 10/28/18 08:00 40 10/28/18 07:30 85 24 96/45 (62) 100 10/28/18 07:06 84 29 40 10/28/18 07:00 85 26 90/50 (63) 100 10/28/18 06:30 86 20 96/45 (62) 100 10/28/18 06:00 85 22 98/49 (65) 100 10/28/18 05:30 84 27 99/51 (67) 100 10/28/18 05:29 83 27 40 10/28/18 05:00 85 20 95/42 (59) 100 10/28/18 04:30 85 24 99/48 (65) 100 10/28/18 04:00 97.6 86 23 102/45 (64) 100 10/28/18 04:00 90 10/28/18 04:00 40 10/28/18 04:00 Mechanical Ventilator 10/28/18 03:30 86 18 100/49 (66) 100 10/28/18 03:28 90/39 10/28/18 03:11 82 28 40 10/28/18 03:00 89 21 104/50 (68) 99 10/28/18 02:30 86 26 85/37 (53) 100 10/28/18 02:00 85 27 90/39 (56) 100 10/28/18 01:30 87 27 88/41 (57) 100 10/28/18 01:00 98.0 89 24 92/36 (54) 100 10/28/18 00:56 84 27 40 10/28/18 00:30 89 26 87/38 (54) 100 10/28/18 00:00 Mechanical Ventilator 10/28/18 00:00 87 27 85/45 (58) 100 10/28/18 00:00 90 10/28/18 00:00 40 10/27/18 23:30 83 26 96/74 (81) 100 10/27/18 23:15 83 28 40 10/27/18 23:00 86 25 90/56 (67) 100 10/27/18 22:30 86 13 86/42 (57) 100 10/27/18 22:00 88 22 90/45 (60) 100 10/27/18 21:46 87 25 40 10/27/18 21:45 87 25 86/34 (51) 100 10/27/18 21:30 90 22 92/37 (55) 100 10/27/18 21:23 89 24 Mechanical Ventilator 40 10/27/18 21:20 88 25 40 10/27/18 21:15 91 25 95/45 (62) 100 10/27/18 21:00 87 24 88/38 (55) 100 10/27/18 20:45 89 23 94/41 (58) 100 10/27/18 20:30 88 24 93/38 (56) 100 10/27/18 20:15 91 22 93/37 (55) 100 10/27/18 20:00 98.1 89 23 95/42 (59) 100 10/27/18 20:00 Mechanical Ventilator 10/27/18 20:00 40 10/27/18 20:00 85 10/27/18 19:45 90 24 94/40 (58) 100 10/27/18 19:30 91 23 94/37 (56) 100 10/27/18 19:00 70 20 104/50 (68) 100 10/27/18 18:30 75 20 102/45 (64) 100 10/27/18 18:00 90 20 106/68 (81) 100 10/27/18 17:30 70 20 98/65 (76) 100 10/27/18 17:00 74 15 94/62 (73) 100 10/27/18 16:49 92 24 40 10/27/18 16:30 77 15 95/66 (76) 100 10/27/18 16:00 90 10/27/18 16:00 40 10/27/18 16:00 Mechanical Ventilator 10/27/18 16:00 98.8 70 15 90/58 (69) 100 10/27/18 15:30 71 15 92/60 (71) 100 10/27/18 15:00 73 15 88/58 (68) 100 10/27/18 14:50 91 28 40 10/27/18 14:30 72 15 90/62 (71) 100 10/27/18 14:00 74 15 92/65 (74) 100 10/27/18 14:00 90/48 10/27/18 13:30 78 15 110/70 (83) 100 10/27/18 13:09 91 27 40 10/27/18 13:00 71 15 118/72 (87) 100 10/27/18 12:30 74 15 115/74 (88) 100 Intake and Output 10/27/18 10/28/18 19:00 07:00 Intake Total 836.24 ml 1397.50 ml Output Total 300 ml 300 ml Balance 536.24 ml 1097.50 ml IV Total 356.24 ml 917.50 ml Tube Feeding 480 ml 480 ml Stool Total 300 ml 300 ml Laboratory Tests 10/28/18 04:00: White Blood Count 14.5H, Red Blood Count 3.02L, Hemoglobin 8.6L, Hematocrit 26.5L, Mean Corpuscular Volume 88, Mean Corpuscular Hemoglobin 28.4, Mean Corpuscular Hemoglobin Concent 32.4, Red Cell Distribution Width 24.3H, Platelet Count 75L, Mean Platelet Volume 11.7H, Neutrophils (%) (Auto) , Lymphocytes (%) (Auto) , Monocytes (%) (Auto) , Eosinophils (%) (Auto) , Basophils (%) (Auto) , Differential Total Cells Counted 100, Neutrophils % ( Manual) 96H, Lymphocytes % (Manual) 3L, Monocytes % (Manual) 1, Eosinophils % ( Manual) 0, Basophils % (Manual) 0, Band Neutrophils 0, Platelet Estimate DecreasedL, Platelet Morphology Normal, Polychromasia 2+, Hypochromasia 1+, Anisocytosis 3+, Prothrombin Time 13.8H, Prothromb Time International Ratio 1.3H , Activated Partial Thromboplast Time 35H, Sodium Level 126L, Potassium Level 3.6, Chloride Level 90L, Carbon Dioxide Level 24, Anion Gap 12, Blood Urea Nitrogen 67H, Creatinine 4.1H, Estimat Glomerular Filtration Rate , Glucose Level 170H, Calcium Level 6.6L, Total Bilirubin 4.4H, Direct Bilirubin 3.7H, Aspartate Amino Transf (AST/SGOT) 158H, Alanine Aminotransferase (ALT/SGPT) 137H , Alkaline Phosphatase 317H, Total Protein 4.6L, Albumin 1.4L, Globulin 3.2, Albumin/Globulin Ratio 0.4L 10/28/18 10:55: Arterial Blood pH 7.345L, Arterial Blood Partial Pressure CO2 43.3, Arterial Blood Partial Pressure O2 81.5, Arterial Blood HCO3 23.1, Arterial Blood Oxygen Saturation 94.3L, Arterial Blood Base Excess -2.5L, Tee Test Positive Height (Feet): 5 Height (Inches): 2.00 Weight (Pounds): 200 General Appearance: lethargic EENT: normal ENT inspection, scleral icterus Neck: supple Cardiovascular: normal rate Respiratory/Chest: decreased breath sounds Abdomen: normal bowel sounds, non tender, soft Extremities: non-tender Baldemar Hawley MD Oct 28, 2018 12:07
--- NOTE | 2018-10-28 13:16 | Nephrology Progress Note ---
Assessment/Plan Problem List: (1) Acute kidney injury superimposed on CKD Assessment: no recovery (2) CHF (congestive heart failure) (3) NSTEMI (non-ST elevated myocardial infarction) (4) Hypotension Assessment: on less pressors (5) Pneumonia (6) Hypoglycemia (7) Respiratory failure, acute (8) Sepsis (9) Hyponatremia Assessment: better Plan HD tomorrow Discussed with RN continue pressors abxs per ID follow labs Vent support Trach ? TF Subjective Subjective getting X ray for NG placement Objective Objective Last 24 Hour Vital Signs Date Time Temp Pulse Resp B/P (MAP) Pulse Ox O2 Delivery O2 Flow Rate FiO2 10/28/18 13:00 90 0 94/45 (61) 100 10/28/18 12:31 91 30 40 10/28/18 12:30 91 30 89/46 (60) 100 10/28/18 12:00 85 10/28/18 12:00 98.2 92 20 104/42 (62) 100 10/28/18 12:00 40 10/28/18 12:00 Mechanical Ventilator 10/28/18 11:30 95 20 103/51 (68) 100 10/28/18 11:00 108 24 108/52 (70) 99 10/28/18 10:47 109 32 40 10/28/18 10:30 108 28 105/53 (70) 100 10/28/18 10:00 108 27 112/58 (76) 98 10/28/18 09:39 9 10/28/18 09:30 95 0 91/46 (61) 98 10/28/18 09:05 86 28 40 10/28/18 09:00 87 12 92/45 (61) 100 10/28/18 08:30 87 3 91/40 (57) 100 10/28/18 08:00 Mechanical Ventilator 10/28/18 08:00 85 10/28/18 08:00 98.7 85 23 90/39 (56) 100 10/28/18 08:00 40 10/28/18 07:30 85 24 96/45 (62) 100 10/28/18 07:06 84 29 40 10/28/18 07:00 85 26 90/50 (63) 100 10/28/18 06:30 86 20 96/45 (62) 100 10/28/18 06:00 85 22 98/49 (65) 100 10/28/18 05:30 84 27 99/51 (67) 100 10/28/18 05:29 83 27 40 10/28/18 05:00 85 20 95/42 (59) 100 10/28/18 04:30 85 24 99/48 (65) 100 10/28/18 04:00 97.6 86 23 102/45 (64) 100 10/28/18 04:00 90 10/28/18 04:00 40 10/28/18 04:00 Mechanical Ventilator 10/28/18 03:30 86 18 100/49 (66) 100 10/28/18 03:28 90/39 10/28/18 03:11 82 28 40 10/28/18 03:00 89 21 104/50 (68) 99 10/28/18 02:30 86 26 85/37 (53) 100 10/28/18 02:00 85 27 90/39 (56) 100 10/28/18 01:30 87 27 88/41 (57) 100 10/28/18 01:00 98.0 89 24 92/36 (54) 100 10/28/18 00:56 84 27 40 10/28/18 00:30 89 26 87/38 (54) 100 10/28/18 00:00 Mechanical Ventilator 10/28/18 00:00 87 27 85/45 (58) 100 10/28/18 00:00 90 10/28/18 00:00 40 10/27/18 23:30 83 26 96/74 (81) 100 10/27/18 23:15 83 28 40 10/27/18 23:00 86 25 90/56 (67) 100 10/27/18 22:30 86 13 86/42 (57) 100 10/27/18 22:00 88 22 90/45 (60) 100 10/27/18 21:46 87 25 40 10/27/18 21:45 87 25 86/34 (51) 100 10/27/18 21:30 90 22 92/37 (55) 100 10/27/18 21:23 89 24 Mechanical Ventilator 40 10/27/18 21:20 88 25 40 10/27/18 21:15 91 25 95/45 (62) 100 10/27/18 21:00 87 24 88/38 (55) 100 10/27/18 20:45 89 23 94/41 (58) 100 10/27/18 20:30 88 24 93/38 (56) 100 10/27/18 20:15 91 22 93/37 (55) 100 10/27/18 20:00 98.1 89 23 95/42 (59) 100 10/27/18 20:00 Mechanical Ventilator 10/27/18 20:00 40 10/27/18 20:00 85 10/27/18 19:45 90 24 94/40 (58) 100 10/27/18 19:30 91 23 94/37 (56) 100 10/27/18 19:00 70 20 104/50 (68) 100 10/27/18 18:30 75 20 102/45 (64) 100 10/27/18 18:00 90 20 106/68 (81) 100 10/27/18 17:30 70 20 98/65 (76) 100 10/27/18 17:00 74 15 94/62 (73) 100 10/27/18 16:49 92 24 40 10/27/18 16:30 77 15 95/66 (76) 100 10/27/18 16:00 90 10/27/18 16:00 40 10/27/18 16:00 Mechanical Ventilator 10/27/18 16:00 98.8 70 15 90/58 (69) 100 10/27/18 15:30 71 15 92/60 (71) 100 10/27/18 15:00 73 15 88/58 (68) 100 10/27/18 14:50 91 28 40 10/27/18 14:30 72 15 90/62 (71) 100 10/27/18 14:00 74 15 92/65 (74) 100 10/27/18 14:00 90/48 10/27/18 13:30 78 15 110/70 (83) 100 Intake and Output 10/27/18 10/28/18 19:00 07:00 Intake Total 836.24 ml 1397.50 ml Output Total 300 ml 300 ml Balance 536.24 ml 1097.50 ml IV Total 356.24 ml 917.50 ml Tube Feeding 480 ml 480 ml Stool Total 300 ml 300 ml Laboratory Tests 10/28/18 04:00: White Blood Count 14.5H, Red Blood Count 3.02L, Hemoglobin 8.6L, Hematocrit 26.5L, Mean Corpuscular Volume 88, Mean Corpuscular Hemoglobin 28.4, Mean Corpuscular Hemoglobin Concent 32.4, Red Cell Distribution Width 24.3H, Platelet Count 75L, Mean Platelet Volume 11.7H, Neutrophils (%) (Auto) , Lymphocytes (%) (Auto) , Monocytes (%) (Auto) , Eosinophils (%) (Auto) , Basophils (%) (Auto) , Differential Total Cells Counted 100, Neutrophils % ( Manual) 96H, Lymphocytes % (Manual) 3L, Monocytes % (Manual) 1, Eosinophils % ( Manual) 0, Basophils % (Manual) 0, Band Neutrophils 0, Platelet Estimate DecreasedL, Platelet Morphology Normal, Polychromasia 2+, Hypochromasia 1+, Anisocytosis 3+, Prothrombin Time 13.8H, Prothromb Time International Ratio 1.3H , Activated Partial Thromboplast Time 35H, Sodium Level 126L, Potassium Level 3.6, Chloride Level 90L, Carbon Dioxide Level 24, Anion Gap 12, Blood Urea Nitrogen 67H, Creatinine 4.1H, Estimat Glomerular Filtration Rate , Glucose Level 170H, Calcium Level 6.6L, Total Bilirubin 4.4H, Direct Bilirubin 3.7H, Aspartate Amino Transf (AST/SGOT) 158H, Alanine Aminotransferase (ALT/SGPT) 137H , Alkaline Phosphatase 317H, Total Protein 4.6L, Albumin 1.4L, Globulin 3.2, Albumin/Globulin Ratio 0.4L 10/28/18 10:55: Arterial Blood pH 7.345L, Arterial Blood Partial Pressure CO2 43.3, Arterial Blood Partial Pressure O2 81.5, Arterial Blood HCO3 23.1, Arterial Blood Oxygen Saturation 94.3L, Arterial Blood Base Excess -2.5L, Tee Test Positive Height (Feet): 5 Height (Inches): 2.00 Weight (Pounds): 200 Cardiovascular: normal rate Respiratory/Chest: rhonchi - bilaterally Extremities: severe edema Mario Porter MD Oct 28, 2018 13:16
--- NOTE | 2018-10-28 13:50 | NUR ---
NURSE NOTES: Called [facility] regarding dialysis schedule tomorrow, spoke with answering service. Will continue to monitor.
--- NOTE | 2018-10-28 13:57 | Diagnostic Imaging Report ---
Indication: Post gastric tube placement Technique: Supine view of the upper abdomen Comparison: 10/20/2017 Findings: Nasogastric tube coiled in the gastric fundus, in good position. Visualized bowel gas is unremarkable. Bilateral pleural effusions are noted Impression: Satisfactory gastric tube placement
--- NOTE | 2018-10-28 14:41 | NUR ---
NURSE NOTES: Pt taken down to CT with charge nurse, aeronautical engineering technologist and RT. Will continue to monitor.
[2018-10-28] MEDS: Vasopressin 100 UNITS in NS 95 ML IV SCH (15:00)
--- NOTE | 2018-10-28 15:34 | Infectious Diseases Prog Note ---
Assessment/Plan Assessment/Plan A) 1) sepsis, shock, leukocytosis, pna, ? fungemia, ? c.diff., fungemia risk, respiratory failure - leukocytosis persists - remains on pressors but less - more alert overall - c.diff. - negative - chest x-ray with new infiltrate 2) respiratory failure, vent, dm, htn, fred, HD, nstemi, anemia, cad, chf, hyponatremia 3) , pvd, cidp, prostate ca, ckd 4) sh-neg, fh-nc, mar noted, orders and notes reviewed 5) allergies - pcn 6) d/w RN P) 1) meropenem, vancomycin and diflcuan 2) monitor labs and chest x-ray, recheck sputum culture 3) continue treatment per primary team and consultants 4) condition critical 5) continue icu supportive care Subjective Constitutional: Reports: other - on vent, more alert and responsive ; Denies: fever HEENT: Reports: congestion Respiratory: Reports: shortness of breath Cardiovascular: Reports: other - no pressors Gastrointestinal/Abdominal: Reports: diarrhea, other - + rectal tube ; Denies: nausea, vomiting Genitourinary: Reports: other - no cooper, + hd Neurologic: Reports: weakness Psychiatric: Reports: other - na Skin: Denies: rash Hematologic: Denies: bleeding Musculoskeletal: Denies: pain Allergies: Coded Allergies: PENICILLINS (Verified Allergy, Unknown, 10/09/18) Objective Vital Signs Last 24 Hour Vital Signs Date Time Temp Pulse Resp B/P (MAP) Pulse Ox O2 Delivery O2 Flow Rate FiO2 10/28/18 15:00 93 16 74/42 (53) 100 10/28/18 14:49 106 32 40 10/28/18 14:30 92 16 117/58 (77) 100 10/28/18 14:00 90 4 98/42 (60) 100 10/28/18 13:30 88 0 90/39 (56) 100 10/28/18 13:00 90 0 94/45 (61) 100 10/28/18 12:31 91 30 40 10/28/18 12:30 91 30 89/46 (60) 100 10/28/18 12:00 85 10/28/18 12:00 98.2 92 20 104/42 (62) 100 10/28/18 12:00 40 10/28/18 12:00 Mechanical Ventilator 2/21/19 11:30 95 20 103/51 (68) 100 10/28/18 11:00 108 24 108/52 (70) 99 10/28/18 10:47 109 32 40 10/28/18 10:30 108 28 105/53 (70) 100 10/28/18 10:00 108 27 112/58 (76) 98 10/28/18 09:39 9 10/28/18 09:30 95 0 91/46 (61) 98 10/28/18 09:05 86 28 40 10/28/18 09:00 87 12 92/45 (61) 100 10/28/18 08:30 87 3 91/40 (57) 100 10/28/18 08:00 Mechanical Ventilator 10/28/18 08:00 85 10/28/18 08:00 98.7 85 23 90/39 (56) 100 10/28/18 08:00 40 10/28/18 07:30 85 24 96/45 (62) 100 10/28/18 07:06 84 29 40 10/28/18 07:00 85 26 90/50 (63) 100 10/28/18 06:30 86 20 96/45 (62) 100 10/28/18 06:00 85 22 98/49 (65) 100 10/28/18 05:30 84 27 99/51 (67) 100 10/28/18 05:29 83 27 40 10/28/18 05:00 85 20 95/42 (59) 100 10/28/18 04:30 85 24 99/48 (65) 100 10/28/18 04:00 97.6 86 23 102/45 (64) 100 10/28/18 04:00 90 10/28/18 04:00 40 10/28/18 04:00 Mechanical Ventilator 10/28/18 03:30 86 18 100/49 (66) 100 10/28/18 03:28 90/39 10/28/18 03:11 82 28 40 10/28/18 03:00 89 21 104/50 (68) 99 10/28/18 02:30 86 26 85/37 (53) 100 10/28/18 02:00 85 27 90/39 (56) 100 10/28/18 01:30 87 27 88/41 (57) 100 10/28/18 01:00 98.0 89 24 92/36 (54) 100 10/28/18 00:56 84 27 40 10/28/18 00:30 89 26 87/38 (54) 100 10/28/18 00:00 Mechanical Ventilator 10/28/18 00:00 87 27 85/45 (58) 100 10/28/18 00:00 90 10/28/18 00:00 40 10/27/18 23:30 83 26 96/74 (81) 100 10/27/18 23:15 83 28 40 10/27/18 23:00 86 25 90/56 (67) 100 10/27/18 22:30 86 13 86/42 (57) 100 10/27/18 22:00 88 22 90/45 (60) 100 10/27/18 21:46 87 25 40 10/27/18 21:45 87 25 86/34 (51) 100 10/27/18 21:30 90 22 92/37 (55) 100 10/27/18 21:23 89 24 Mechanical Ventilator 40 10/27/18 21:20 88 25 40 10/27/18 21:15 91 25 95/45 (62) 100 10/27/18 21:00 87 24 88/38 (55) 100 10/27/18 20:45 89 23 94/41 (58) 100 10/27/18 20:30 88 24 93/38 (56) 100 10/27/18 20:15 91 22 93/37 (55) 100 10/27/18 20:00 98.1 89 23 95/42 (59) 100 10/27/18 20:00 Mechanical Ventilator 10/27/18 20:00 40 10/27/18 20:00 85 10/27/18 19:45 90 24 94/40 (58) 100 10/27/18 19:30 91 23 94/37 (56) 100 10/27/18 19:00 70 20 104/50 (68) 100 10/27/18 18:30 75 20 102/45 (64) 100 10/27/18 18:00 90 20 106/68 (81) 100 10/27/18 17:30 70 20 98/65 (76) 100 10/27/18 17:00 74 15 94/62 (73) 100 2/20/19 16:49 92 24 40 10/27/18 16:30 77 15 95/66 (76) 100 10/27/18 16:00 90 10/27/18 16:00 40 10/27/18 16:00 Mechanical Ventilator 10/27/18 16:00 98.8 70 15 90/58 (69) 100 10/27/18 15:30 71 15 92/60 (71) 100 Height (Feet): 5 Height (Inches): 2.00 Weight (Pounds): 200 General Appearance: no acute distress, other - on pressors, + vent, fi02-40% HEENT: normocephalic, atraumatic, anicteric Respiratory/Chest: crackles/rales, rhonchi - bilaterally Cardiovascular: normal rate, regular rhythm, no gallop/murmur, no JVD Abdomen: normal bowel sounds, soft, non tender, no organomegaly, non distended Genitourinary: other - no foey Extremities: no cyanosis Skin: no rash Neurologic/Psychiatric: replanter II-XII grossly normal, alert, motor weakness, other - more alert, weak Lymphatic: no neck adenopathy Musculoskeletal: no effusion Objective 10/21/18 - chest x-ray - Findings: Bilateral small pleural effusions are unchanged. Stable satisfactory positions of endotracheal tube, right external jugular temporary dialysis catheter, left arm PICC. Interim placement of a nasogastric tube, tip which projects beyond the edge of image, documented to be intragastric on an earlier abdominal radiograph. Previously demonstrated right basilar interstitial opacities appear improved Impression: Interim enteric feeding tube placement. Slight clearing of previously demonstrated right basilar interstitial opacities. Otherwise, little exchange clerk 2 days, findings as noted Chest x-ray - 10/26/18 - Impression: Worsening pulmonary interstitial and airspace edema. Stable left, increasing right pleural effusions, both small Satisfactory tube and line positions, as described 10/28/18 - chest x-ray - Comparison: 10/26/2018 Findings: Gastric tube appears retracted, tip projecting at or just beyond the gastroesophageal junction. Stable satisfactory position of endotracheal tube, left arm PICC, right jugular temporary dialysis catheter. There is increased airspace consolidation in the right mid and lower lung. There is suggestion of increased retrocardiac opacity, although suspect that this is an artifact of decreased exposure as compared to prior study. Bilateral pleural effusions are again demonstrated. Impression: New or increased infiltrate in the right mid and lower lung Somewhat high position of gastric tube; advancement recommended. This finding was phoned to ICU charge nurse Brenda at the time of interpretation. Other stable findings as described Microbiology Date/Time Source Procedure Growth Status 10/20/18 06:10 Blood Blood Culture - Final NO GROWTH AFTER 5 DAYS Complete 10/20/18 10:00 Sputum Induced Gram Stain - Final Complete 10/20/18 10:00 Sputum Culture - Final Ana Laura Species Usual Respiratory Melany Complete 10/24/18 01:35 Stool Clostridium difficile Toxin Assay - Final Complete Laboratory Tests Test 10/28/18 04:00 10/28/18 10:55 White Blood Count 14.5 K/UL (4.8-10.8) H Red Blood Count 3.02 M/UL (4.70-6.10) L Hemoglobin 8.6 G/DL (14.2-18.0) L Hematocrit 26.5 % (42.0-52.0) L Mean Corpuscular Volume 88 FL (80-99) Mean Corpuscular Hemoglobin 28.4 PG (27.0-31.0) Mean Corpuscular Hemoglobin Concent 32.4 G/DL (32.0-36.0) Red Cell Distribution Width 24.3 % (11.6-14.8) H Platelet Count 75 K/UL (150-450) L Mean Platelet Volume 11.7 FL (6.5-10.1) H Neutrophils (%) (Auto) % (45.0-75.0) Lymphocytes (%) (Auto) % (20.0-45.0) Monocytes (%) (Auto) % (1.0-10.0) Eosinophils (%) (Auto) % (0.0-3.0) Basophils (%) (Auto) % (0.0-2.0) Differential Total Cells Counted 100 Neutrophils % (Manual) 96 % (45-75) H Lymphocytes % (Manual) 3 % (20-45) L Monocytes % (Manual) 1 % (1-10) Eosinophils % (Manual) 0 % (0-3) Basophils % (Manual) 0 % (0-2) Band Neutrophils 0 % (0-8) Platelet Estimate Decreased L Platelet Morphology Normal Polychromasia 2+ Hypochromasia 1+ Anisocytosis 3+ Prothrombin Time 13.8 SEC (9.30-11.50) H Prothromb Time International Ratio 1.3 (0.9-1.1) H Activated Partial Thromboplast Time 35 SEC (23-33) H Sodium Level 126 MMOL/L (136-145) L Potassium Level 3.6 MMOL/L (3.5-5.1) Chloride Level 90 MMOL/L (98-107) L Carbon Dioxide Level 24 MMOL/L (21-32) Anion Gap 12 mmol/L (5-15) Blood Urea Nitrogen 67 mg/dL (7-18) H Creatinine 4.1 MG/DL (0.55-1.30) H Estimat Glomerular Filtration Rate mL/min (>60) Glucose Level 170 MG/DL (74-106) H Calcium Level 6.6 MG/DL (8.5-10.1) L Total Bilirubin 4.4 MG/DL (0.2-1.0) H Direct Bilirubin 3.7 MG/DL (0.0-0.3) H Aspartate Amino Transf (AST/SGOT) 158 U/L (15-37) H Alanine Aminotransferase (ALT/SGPT) 137 U/L (12-78) H Alkaline Phosphatase 317 U/L (46-116) H Total Protein 4.6 G/DL (6.4-8.2) L Albumin 1.4 G/DL (3.4-5.0) L Globulin 3.2 g/dL Albumin/Globulin Ratio 0.4 (1.0-2.7) L Arterial Blood pH 7.345 (7.350-7.450) Arterial Blood Partial Pressure CO2 43.3 mmHg (35.0-45.0) Arterial Blood Partial Pressure O2 81.5 mmHg (75.0-100.0) Arterial Blood HCO3 23.1 mmol/L (22.0-26.0) Arterial Blood Oxygen Saturation 94.3 % (95-100) L Arterial Blood Base Excess -2.5 (-2-2) L Tee Test Positive Current Medications Medications (Trade) Dose Ordered Sig/Ashely Route PRN Reason Start Time Stop Time Status Last Admin Dose Admin Albumin Human 250 ml @ 250 mls/hr Q1H PRN IV sbp<90 during hd 10/29/18 08:00 10/29/18 18:00 Aspirin (Ecotrin) 81 mg DAILY ORAL 10/19/18 09:00 3/5/19 08:59 10/27/18 08:49 Barium Sulfate (Readi-Cat 2) 450 ml NOW PRN ORAL Radiology Procedure 10/28/18 12:15 10/30/18 12:07 Calcium Carbonate (Tums) 500 mg BID GT 10/20/18 18:00 11/09/18 08:59 10/28/18 08:36 Chlorhexidine Gluconate (Anai-Hex 2%) 1 applic DAILY@2000 TOPIC 10/18/18 20:00 11/12/18 19:59 10/27/18 20:40 Dextrose (Dextrose 50%) 25 ml Q30M PRN IV Hypoglycemia 10/23/18 08:15 11/22/18 08:14 Dextrose (Dextrose 50%) 50 ml Q30M PRN IV Hypoglycemia 10/23/18 08:15 11/22/18 08:14 Dobutamine HCl 250 ml @ 10.05 mls/ hr Q24H IV 10/19/18 11:40 11/18/18 11:39 10/22/18 12:43 Dopamine HCl/ Dextrose 250 ml @ 0 mls/hr Q24H IV 10/19/18 12:45 11/18/18 12:44 10/20/18 17:43 Fluconazole/ Sodium Chloride 100 ml @ 100 mls/hr Q24H IV 10/22/18 20:00 10/29/18 19:59 10/27/18 20:00 Haloperidol Lactate (Haldol) 5 mg Q6H PRN IM Agitation 10/18/18 17:00 11/17/18 16:59 Heparin Sodium (Porcine) (Heparin Sod 1000 units/ml 10ml) 500 unit ONCE PRN IV HD USE 10/29/18 08:00 10/29/18 18:00 Insulin Aspart (NovoLOG) EVERY 4 HOURS SUBQ 10/23/18 09:00 11/22/18 08:59 10/28/18 13:15 Latanoprost (Xalatan) 1 drop BEDTIME BOTH EYES 10/18/18 21:00 11/10/18 20:59 10/27/18 20:40 Loperamide HCl (Imodium) 2 mg Q4H PRN ORAL Diarrhea 10/27/18 09:45 11/26/18 09:44 Meropenem 500 mg/ Sodium Chloride 50 ml @ 100 mls/hr Q24HRS IVPB 10/25/18 00:00 10/30/18 00:00 10/28/18 00:28 Norepinephrine Bitartrate 16 mg/ Dextrose 500 ml @ 0 mls/hr Q24H IV 10/20/18 18:00 11/19/18 17:59 10/28/18 03:28 Ondansetron HCl (Zofran) 4 mg Q8H PRN IVP Nausea & Vomiting 10/18/18 17:00 11/17/18 16:59 Promethazine HCl (Phenergan Plain) 6.25 mg Q6H PRN ORAL For Cough 10/18/18 16:45 11/10/18 04:32 Vancomycin HCl (Vanco rx to dose) 1 ea DAILY PRN MISC Per rx protocol 10/19/18 23:30 11/18/18 23:29 Vasopressin 100 units/Sodium Chloride 100 ml @ 2.4 mls/hr Q24H IV 10/22/18 15:00 11/21/18 14:59 10/25/18 15:13 Roseline Figueroa MD Oct 28, 2018 15:34
--- NOTE | 2018-10-28 16:09 | Diagnostic Imaging Report ---
CLINICAL INDICATION:Chest and abdominal pain, acute respiratory failure, hemoptysis, respiratory acidosis, acute kidney injury TECHNIQUE: Patient given enteric contrast . No IV contrast, per referring physician request. Spiral acquisitions obtained through the chest, abdomen, and pelvis. Multiplanar reconstructions were generated. Total dose length product 1351.42 mGycm. CTDIvol(s) 20.41 mGy. Radiation dose was minimized using automated exposure control COMPARISON: none FINDINGS There is anasarca, with diffuse edema of the subcutaneous fat, and to a lesser extent the mediastinal and abdominal fat. There is also pleural fluid and ascites fluid present. Chest: The lungs demonstrate fairly extensive confluent consolidation and atelectasis in the bilateral lower lobes. Less extensive reticular interstitial and nodular airspace opacities are seen scattered throughout the bilateral upper lobes. There are small bilateral pleural effusions. Intrafissural fluid is seen bilaterally. The heart is enlarged. There is a minimal amount of pericardial fluid posterolaterally. No hilar or mediastinal adenopathy demonstrated. There is an endotracheal tube in place, tip terminating 3 cm above the wendy. There is a nasogastric tube in place, tip coiled in the gastric fundus. There is a temporary dialysis catheter in place, tip projecting at the level of the cavoatrial junction. There is a left arm PICC, tip terminating at the innominate venous confluence. The included portions of the thyroid are unremarkable. No axillary or chest wall mass or adenopathy. There are degenerative changes of the thoracic spine. Abdomen pelvis: The stomach is unremarkable. The duodenum is unremarkable. Contrast has not traversed the entirety of the small bowel. However, there is no small bowel distention or small bowel wall thickening demonstrated. No free intraperitoneal gas is evident. The appendix is not definitely demonstrated, but no findings to suggest acute appendicitis are evident. There is a rectal tube in place. The colon is nondistended. There is a small to moderate amount of ascites fluid. Lack of IV contrast limits assessment of solid organs. The gallbladder is surgically absent. There is no biliary ductal dilatation. Liver demonstrates suggestion of slight surface nodularity. No gross focal abnormality. The pancreas, spleen, adrenals are unremarkable. The right kidney demonstrates moderate hydronephrosis. There is also hydroureter which extends to at or just above the ureteral orifice. An irregular soft tissue opacity and adjacent surgical clips are seen at the termination of the right ureter. The soft tissue opacity measures 4.9 cm AP by 1.2 cm transverse. This is adjacent to the ureteral orifice. The bladder is nondistended. The prostate and seminal vesicles appear to surgically absent and other surgical clips are also seen in the pelvis. There is edema of the presacral fat noted. No pelvic adenopathy demonstrated. The bones demonstrate degenerative spondylosis changes. IMPRESSION: Anasarca, with diffuse edema of the subcutaneous fat and to a lesser extent the mediastinal and abdominal fat, as well as pleural fluid and ascites Basilar pulmonary parenchymal consolidation and atelectasis. Extensive upper lobe reticular and nodular interstitial and airspace opacities. Most likely on the basis of pulmonary edema, given other findings, but infectious or noninfectious inflammatory etiologies also possible. Bilateral small pleural effusions, as mentioned above Cardiomegaly Minimal pericardial fluid Tube and line positions as described Evidence of prior prostatectomy Right hydronephrosis. Right hydroureter, with appears to terminate in a 4.9 x 1.2 cm area of soft tissue opacity in the right side of the pelvis adjacent to the ureteral orifice with associated surgical clips. This may indicate ureteral obstruction secondary to scar tissue versus a recurrent pelvic mass. Hydronephrosis also noted on prior abdominal ultrasound of 10/22/2018 Ascites, as mentioned above Possible hepatic surface nodularity, if real could indicate cirrhosis Surgically absent gallbladder Degenerative spondylosis incidentally noted The CT scanner at [facility] is accredited by the [employer] and the scans are performed using protocols designed to limit radiation exposure to as low as reasonably achievable to attain images of sufficient resolution adequate for diagnostic evaluation.
[2018-10-28] MEDS ORDERED: Tubing IV Secondary IV ONE (16:14)
[2018-10-28] MEDS ORDERED: NS 275ml ONE (16:14)
--- NOTE | 2018-10-28 17:47 | NUR ---
NURSE NOTES: Turned and repositioned pt. No acute distress. Will continue to monitor.
--- NOTE | 2018-10-28 18:51 | NUR ---
RESPIRATORY NOTE: Recevied pt on AC 20, 500VT, 40%, PEEP +5. Pt intubated w/ ETT 7.5 @ 23cm lipline, secured by anchorfast. Pt asleep/disoriented, responds to stimuli. B/S munira. rhonchi, sxn small amounts of thick, oliveira-yellow secretions w/ occasional blood clots. Vent plugged into red outlet, amubag at bedside. Pt in no apparent distress at this time. Will continue to monitor pt.
--- NOTE | 2018-10-28 19:00 | Cardiology Progress Note ---
Assessment/Plan Assessment/Plan cardiology critical care 1. Hypoglycemia secondary to medication. 2. Diabetes mellitus previously. 3. Acute Respiratory inusf / hemoptysis 4. History of ischemic cardiomyopathy with ejection fraction of 40%. 5. Mitral regurgitation, [id number] degree on recent echocardiogram last week. 6. Moderate tricuspid regurgitation. 7. Mild pulmonary hypertension with 43 through 48. 8. Pleural effusions history. 9. Abnormal gastric endoscopy, suspicious for malignancy with submucosal resection. 10. Aortic stenosis. 11. Hyperlipidemia. 12. Prostate cancer. 13. Abnormal facial asymmetry. 14. CAD 15. AMS 16. NSTEMI demand related vs PE related doubt acs 17. acute on chronic renal failure 18. metabolic acidosis 19. hemiparesis 20. hypotension / septic shock 21. Thrombocytopenia 22. abn lft probable shock liver ? 23. profound hyponatremia 24. hyper bilirubinemia 25. pelvic mass 26. hydronephrosis and hydroureter echo reviewed has infor post swma and mod mr and ef probabley 35-40% , rv is not enlarge ivc ws enlarged at the time was done v/q was ordered but not done heparin dcd due to thrombocytopenia is on abx adjusted by id bp is littel better on pressor lft down trending bili trendign down d/w family 10/22/2018 i have made son aware of the poor status we discussed resuscitative effort they wish him to be full code due to buddhist reason needs more dialysi wbc ias better na is better venous duplex neg remains critical but improved d/w rn re very slow taper of levophed dialysis ct revwied urology to see re pelvic mass wean vent as possible Subjective ROS Limited/Unobtainable: Yes Cardiovascular: Denies: chest pain Subjective intubated on 1 pressor , but now follows commnads Objective Last 24 Hour Vital Signs Date Time Temp Pulse Resp B/P (MAP) Pulse Ox O2 Delivery O2 Flow Rate FiO2 10/28/18 18:49 90 26 40 10/28/18 18:30 89 16 104/37 (59) 100 10/28/18 18:00 89 0 95/44 (61) 100 10/28/18 17:30 89 0 105/41 (62) 100 10/28/18 17:24 88 25 40 10/28/18 17:00 91 9 94/50 (65) 100 10/28/18 16:30 82 2 63/29 (40) 100 10/28/18 16:00 98.0 83 13 91/44 (60) 100 10/28/18 16:00 88 10/28/18 16:00 40 10/28/18 16:00 Mechanical Ventilator 10/28/18 15:30 86 0 96/48 (64) 100 10/28/18 15:00 93 16 74/42 (53) 100 10/28/18 14:49 106 32 40 10/28/18 14:30 92 16 117/58 (77) 100 10/28/18 14:00 90 4 98/42 (60) 100 10/28/18 13:30 88 0 90/39 (56) 100 10/28/18 13:00 90 0 94/45 (61) 100 10/28/18 12:31 91 30 40 10/28/18 12:30 91 30 89/46 (60) 100 10/28/18 12:00 85 10/28/18 12:00 98.2 92 20 104/42 (62) 100 10/28/18 12:00 40 10/28/18 12:00 Mechanical Ventilator 10/28/18 11:30 95 20 103/51 (68) 100 10/28/18 11:00 108 24 108/52 (70) 99 10/28/18 10:47 109 32 40 10/28/18 10:30 108 28 105/53 (70) 100 10/28/18 10:00 108 27 112/58 (76) 98 10/28/18 09:39 9 10/28/18 09:30 95 0 91/46 (61) 98 10/28/18 09:05 86 28 40 10/28/18 09:00 87 12 92/45 (61) 100 10/28/18 08:30 87 3 91/40 (57) 100 10/28/18 08:00 Mechanical Ventilator 10/28/18 08:00 85 10/28/18 08:00 98.7 85 23 90/39 (56) 100 10/28/18 08:00 40 10/28/18 07:30 85 24 96/45 (62) 100 10/28/18 07:06 84 29 40 10/28/18 07:00 85 26 90/50 (63) 100 10/28/18 06:30 86 20 96/45 (62) 100 2/21/19 06:00 85 22 98/49 (65) 100 10/28/18 05:30 84 27 99/51 (67) 100 10/28/18 05:29 83 27 40 10/28/18 05:00 85 20 95/42 (59) 100 10/28/18 04:30 85 24 99/48 (65) 100 10/28/18 04:00 97.6 86 23 102/45 (64) 100 10/28/18 04:00 90 10/28/18 04:00 40 10/28/18 04:00 Mechanical Ventilator 10/28/18 03:30 86 18 100/49 (66) 100 10/28/18 03:28 90/39 10/28/18 03:11 82 28 40 10/28/18 03:00 89 21 104/50 (68) 99 10/28/18 02:30 86 26 85/37 (53) 100 10/28/18 02:00 85 27 90/39 (56) 100 10/28/18 01:30 87 27 88/41 (57) 100 10/28/18 01:00 98.0 89 24 92/36 (54) 100 10/28/18 00:56 84 27 40 10/28/18 00:30 89 26 87/38 (54) 100 10/28/18 00:00 Mechanical Ventilator 10/28/18 00:00 87 27 85/45 (58) 100 10/28/18 00:00 90 10/28/18 00:00 40 10/27/18 23:30 83 26 96/74 (81) 100 10/27/18 23:15 83 28 40 10/27/18 23:00 86 25 90/56 (67) 100 10/27/18 22:30 86 13 86/42 (57) 100 10/27/18 22:00 88 22 90/45 (60) 100 10/27/18 21:46 87 25 40 10/27/18 21:45 87 25 86/34 (51) 100 10/27/18 21:30 90 22 92/37 (55) 100 10/27/18 21:23 89 24 Mechanical Ventilator 40 10/27/18 21:20 88 25 40 10/27/18 21:15 91 25 95/45 (62) 100 10/27/18 21:00 87 24 88/38 (55) 100 10/27/18 20:45 89 23 94/41 (58) 100 10/27/18 20:30 88 24 93/38 (56) 100 10/27/18 20:15 91 22 93/37 (55) 100 10/27/18 20:00 98.1 89 23 95/42 (59) 100 10/27/18 20:00 Mechanical Ventilator 10/27/18 20:00 40 10/27/18 20:00 85 10/27/18 19:45 90 24 94/40 (58) 100 10/27/18 19:30 91 23 94/37 (56) 100 10/27/18 19:00 70 20 104/50 (68) 100 General Appearance: no apparent distress, alert, on vent Neck: supple Cardiovascular: normal rate Respiratory/Chest: lungs clear Abdomen: soft Extremities: severe edema Intake and Output 10/27/18 10/28/18 19:00 07:00 Intake Total 836.24 ml 1397.50 ml Output Total 300 ml 300 ml Balance 536.24 ml 1097.50 ml IV Total 356.24 ml 917.50 ml Tube Feeding 480 ml 480 ml Stool Total 300 ml 300 ml Laboratory Tests Test 10/28/18 04:00 10/28/18 10:55 White Blood Count 14.5 K/UL (4.8-10.8) H Red Blood Count 3.02 M/UL (4.70-6.10) L Hemoglobin 8.6 G/DL (14.2-18.0) L Hematocrit 26.5 % (42.0-52.0) L Mean Corpuscular Volume 88 FL (80-99) Mean Corpuscular Hemoglobin 28.4 PG (27.0-31.0) Mean Corpuscular Hemoglobin Concent 32.4 G/DL (32.0-36.0) Red Cell Distribution Width 24.3 % (11.6-14.8) H Platelet Count 75 K/UL (150-450) L Mean Platelet Volume 11.7 FL (6.5-10.1) H Neutrophils (%) (Auto) % (45.0-75.0) Lymphocytes (%) (Auto) % (20.0-45.0) Monocytes (%) (Auto) % (1.0-10.0) Eosinophils (%) (Auto) % (0.0-3.0) Basophils (%) (Auto) % (0.0-2.0) Differential Total Cells Counted 100 Neutrophils % (Manual) 96 % (45-75) H Lymphocytes % (Manual) 3 % (20-45) L Monocytes % (Manual) 1 % (1-10) Eosinophils % (Manual) 0 % (0-3) Basophils % (Manual) 0 % (0-2) Band Neutrophils 0 % (0-8) Platelet Estimate Decreased L Platelet Morphology Normal Polychromasia 2+ Hypochromasia 1+ Anisocytosis 3+ Prothrombin Time 13.8 SEC (9.30-11.50) H Prothromb Time International Ratio 1.3 (0.9-1.1) H Activated Partial Thromboplast Time 35 SEC (23-33) H Sodium Level 126 MMOL/L (136-145) L Potassium Level 3.6 MMOL/L (3.5-5.1) Chloride Level 90 MMOL/L (98-107) L Carbon Dioxide Level 24 MMOL/L (21-32) Anion Gap 12 mmol/L (5-15) Blood Urea Nitrogen 67 mg/dL (7-18) H Creatinine 4.1 MG/DL (0.55-1.30) H Estimat Glomerular Filtration Rate mL/min (>60) Glucose Level 170 MG/DL (74-106) H Calcium Level 6.6 MG/DL (8.5-10.1) L Total Bilirubin 4.4 MG/DL (0.2-1.0) H Direct Bilirubin 3.7 MG/DL (0.0-0.3) H Aspartate Amino Transf (AST/SGOT) 158 U/L (15-37) H Alanine Aminotransferase (ALT/SGPT) 137 U/L (12-78) H Alkaline Phosphatase 317 U/L (46-116) H Total Protein 4.6 G/DL (6.4-8.2) L Albumin 1.4 G/DL (3.4-5.0) L Globulin 3.2 g/dL Albumin/Globulin Ratio 0.4 (1.0-2.7) L Arterial Blood pH 7.345 (7.350-7.450) Arterial Blood Partial Pressure CO2 43.3 mmHg (35.0-45.0) Arterial Blood Partial Pressure O2 81.5 mmHg (75.0-100.0) Arterial Blood HCO3 23.1 mmol/L (22.0-26.0) Arterial Blood Oxygen Saturation 94.3 % (95-100) L Arterial Blood Base Excess -2.5 (-2-2) L Tee Test Positive Dg Key MD Oct 28, 2018 19:00
--- NOTE | 2018-10-28 19:25 | NUR ---
HAND-OFF: Report given to Tello OSMAN.
--- NOTE | 2018-10-28 19:40 | NUR ---
NURSE NOTES: PATIENT OPEN EYES, ABLE TO EYE CONTACT BUT DID NOT FOLLOW COMMAND, ON ETT TO VENT AC20/ TV 500/ FIO2 40%/PEEP5, O2 SATURATION 100% NOTED, OGT INTACT AND PATENT, ONGOING NEPRO AT 40ML/HR, RESIDUE 30ML NOTED, ABDOMEN LARGE, ROUND, NON TENDER, GENERALIZED EDEMA, RECTAL TUBE INTACT AND PATENT, BROWN COLOR STOOL OUTED, PICC LINE TO LEFT UPPER ARM, INTACT AND PATENT, ONGOING LEVOPHED 17.06MCG/HR VIA PICC LINE, ABILIO CATH W/ PIG TAIL TO RIGHT IJ, CLEANED DRESSING STATUS, ON P200 BED, MADE LOWER BED POSITION, PROVIDED CALL LIGHT WITHIN REACH, WILL CONTINUE TO MONITOR.
[2018-10-28] MEDS: Dyna-Hex 2% Top Sol 2oz TOPIC SCH (19:55)
--- NOTE | 2018-10-28 20:35 | NUR ---
NURSE NOTES: PATIENT 'S SON VISITED, STAYED AT BEDSIDE.
--- NOTE | 2018-10-28 21:15 | NUR ---
NURSE NOTES: PT'S SON WHO IS [facility] DECIDED PT'S CODE STATUS TO DNR BUT NO MEDICAL INTERVENTION STATUS AT THIS TIME.
[2018-10-28] MEDS: Latanoprost 0.005% Opth 2.5ml Soln BOTH EYES SCH (21:20)
--- NOTE | 2018-10-28 21:20 | NUR ---
NURSE NOTES: SEEN THE PATIENT BY DR. STAPLETON, NO NEW ORDER STATUS.
--- NOTE | 2018-10-28 21:37 | NUR ---
NURSE NOTES: CALLED DR. SWIFT REGARDING PT'S CODE STATUS THAT LEFT MESSAGE BY CHARGE NURSE.
--- NOTE | 2018-10-28 23:40 | NUR ---
NURSE NOTES: REPOSITION AND ORAL CARE WAS DONE.
[2018-10-29] VITALS (48 sets, daily range): BP systolic 88–110; BP diastolic 33–79
[2018-10-29] MEDS: NovoLOG Insulin Flexpen SUBQ SCH ×6 (00:51→20:57)
--- NOTE | 2018-10-29 01:15 | Consultation ---
DATE OF CONSULTATION: 10/28/2018 CONSULTING PHYSICIAN: Aaron Eduardo M.D. REFERRING PHYSICIAN: Dg Key M.D. REASON FOR CONSULTATION: Evaluation of hydronephrosis. HISTORY OF PRESENT ILLNESS: This is an unfortunate 83-year-old male. He was originally admitted to the hospital because of coronary artery disease and abnormal cardiac enzymes. He has had a long hospital stay with multiple medical issues including NH, renal failure requiring dialysis, respiratory failure currently on ventilator, and hypotension and shock. He had an ultrasound last week that showed right-sided hydronephrosis. This was confirmed on CT scan today and there was mention of a soft tissue mass near the right ureteral orifice. Urology evaluation requested. Unable to get any history from the patient. Most of the history was obtained from the chart. His past urologic history significant for prostate cancer for which he apparently has had radical prostatectomy. PAST MEDICAL HISTORY: Significant for above, history of diabetes, history of coronary artery disease, ischemic cardiomyopathy, hyperlipidemia, and prostate cancer. PAST SURGICAL HISTORY: He has had a radical prostatectomy. He has had gastric endoscopy. CURRENT MEDICATIONS: In the hospital, the patient is on albumin, heparin, meropenem, Diflucan, loperamide, insulin, calcium, norepinephrine, dopamine, Phenergan, Haldol, and Ecotrin. ALLERGIES: Penicillin. SOCIAL HISTORY: Unable to obtain. FAMILY HISTORY: Noncontributory. PHYSICAL EXAMINATION: GENERAL: An elderly male, nonverbal, on vent. NECK: Supple. ABDOMEN: Soft. There is some slight distention. There is well healed scars. GENITOURINARY: There is penile and scrotal edema. LABORATORY DATA: BUN 67, creatinine 4.1, and potassium 3.6. I believe, he does have some mild baseline renal insufficiency that is chronic. White count 14.5, hemoglobin 8.6, and platelets 75. There is no urinalysis. DIAGNOSTIC IMAGING STUDIES: The patient had a CT scan of the abdomen and pelvis. There was mention of right hydronephrosis, which seems to be moderate. Ureter is dilated down to the soft tissue mass about 4.9 cm near the orifice. He also had an abdominal ultrasound a week ago that also showed [id number] right hydronephrosis, also renal cyst. IMPRESSION: 1. Renal failure, which is acute on chronic. 2. Right-sided hydronephrosis. 3. Renal cyst. 4. Scrotal edema. 5. History of prostate cancer, status post radical prostatectomy. PLAN AND DISCUSSION: The patient is to be monitored clinically. The exact etiology of this soft tissue mass is unknown. He could potentially have recurrence of his prostate cancer or some other malignancy in the pelvic area causing obstruction of the right ureter. He does have obstruction of what appears to be hydronephrosis of the right kidney, which may be contributing to his renal insufficiency. His other records at [facility] will be reviewed and we may consider placement of ureteral stent or nephrostomy at some point if medically feasible. He currently does not have a Reyes catheter. However, I am not sure if it is necessary because on the recent CT scan his bladder was reported to be nondistended. He is to have hemodialysis as needed. I will follow the patient. Any other recommendations will be forthcoming. Thank you, Dr. Key, for asking me to participate in this consultation. Aaron Eduardo M.D. DR: GRICELDA JOB#: [id number] CC:
--- NOTE | 2018-10-29 01:50 | NUR ---
NURSE NOTES: ALL EXTREMITIES WEEPING STATUS, CHANGED LINENS, WILL CONTINUE TO MONITOR.
--- NOTE | 2018-10-29 04:00 | NUR ---
NURSE NOTES: MORNING CARE WAS DONE, RECTAL TUBE INTACT AND PATENT, GREENISH BROWN SOLID STOOL OUTED, NO MADE URINE STATUS.
--- NOTE | 2018-10-29 06:00 | NUR ---
NURSE NOTES: ORAL CARE WAS DONE, PATIENT LETHARGIC, ABLE TO MOVE LEFT ARM, MULTIPLE ECCHYMOSIS AND SKIN TEAR WITH WEEPING NOTED.
[2018-10-29 06:16] LABS: HEMATOCRIT 26.3 % (42.0-52.0); HEMOGLOBIN 8.3 G/DL (14.2-18.0); MEAN CORPUSCULAR VOLUME 87 FL (80-99); PLATELET COUNT 94 K/UL (150-450); RED BLOOD COUNT 3.02 M/UL (4.70-6.10); RED CELL DISTRIBUTION WIDTH 24.5 % (11.6-14.8); WHITE BLOOD COUNT 16.7 K/UL (4.8-10.8)
[2018-10-29 06:23] LABS: INR 1.3 (0.9-1.1)
--- NOTE | 2018-10-29 06:45 | NUR ---
RESPIRATORY NOTE: Received pt on [id number]% FiO2- peep of 5, tolerating well. pt's resting comfortably, eyes open, more awake and alert, follow simple commands. pt is orally intubated with ETT 7.5 @ 23 cm lips line, secured by anchor fast. Keny rhonchi breath sounds upon auscultation, endotracheal suctioned moderate amount of thick/thin yellow/red specks/pink/ small clots secretions and orally suctioned moderate thin/ frothy white oliveira secretions without any incidents. Alarms are set and audible, vent is plugged into the red outlet, ambu bag is at bedside. Vent circuits and sxn tubbing are secured and out of the way. Will continue to monitor pt.
--- NOTE | 2018-10-29 07:00 | NUR ---
NURSE NOTES: spoke with dr. gordon and notify him that the son,luis signed the polst for dnr and he would like to speak with him regarding this matter
--- NOTE | 2018-10-29 07:00 | NUR ---
NURSE NOTES: CALLED DR. SWIFT BY THE CHARGE NURSE REGARDING PT'S CODE STATUS THAT MD AWARE.
--- NOTE | 2018-10-29 07:15 | NUR ---
HAND-OFF: Report given to ANI/RN.
[2018-10-29 07:22] LABS: ALANINE AMINOTRANSFERASE 102 U/L (12-78); ALBUMIN 1.3 G/DL (3.4-5.0); ALBUMIN/GLOBULIN RATIO 0.3 (1.0-2.7); ALKALINE PHOSPHATASE 261 U/L (46-116); ANION GAP 15 mmol/L (5-15); ASPARTATE AMINO TRANSFERASE 138 U/L (15-37); BILIRUBIN,TOTAL 4.1 MG/DL (0.2-1.0); BLOOD UREA NITROGEN 76 mg/dL (7-18); CALCIUM 7.2 MG/DL (8.5-10.1); CARBON DIOXIDE 21 MMOL/L (21-32); CHLORIDE 88 MMOL/L (98-107); CREATININE 4.4 MG/DL (0.55-1.30); POTASSIUM 3.8 MMOL/L (3.5-5.1); SODIUM 123 MMOL/L (136-145)
[2018-10-29 07:27] LABS: BILIRUBIN,DIRECT 3.4 MG/DL (0.0-0.3)
[2018-10-29] MEDS ORDERED: Heparin Sod 1000 units/ml 10ml IV PRN (08:00)
--- NOTE | 2018-10-29 08:00 | NUR ---
NURSE NOTES: PATIENT OPEN EYES, ABLE TO EYE CONTACT BUT DID NOT FOLLOW COMMAND, ON ETT TO VENT AC20/ TV 500/ FIO2 40%/PEEP5, O2 SATURATION 100% NOTED, OGT INTACT AND PATENT, ONGOING NEPRO AT 40ML/HR, RESIDUE 20ML NOTED, ABDOMEN LARGE, ROUND, NON TENDER, GENERALIZED EDEMA, RECTAL TUBE INTACT AND PATENT, BROWN COLOR STOOL OUTED, PICC LINE TO LEFT UPPER ARM, INTACT AND PATENT, ONGOING LEVOPHED 16MCG/HR VIA PICC LINE, ABILIO CATH W/ PIG TAIL TO RIGHT IJ, ON P200 BED, MADE LOWER BED POSITION, PROVIDED CALL LIGHT WITHIN REACH, WILL CONTINUE TO MONITOR.
--- NOTE | 2018-10-29 08:50 | NUR ---
RESPIRATORY NOTE: Placed pt on CPAP PS 8- 40% FiO2. Pt is tolerating well, no resp distress noted. Pt understands the weaning plan. RN Mary Anne made aware. Will continue to monitor.
--- NOTE | 2018-10-29 09:37 | General Progress Note ---
Assessment/Plan Problem List: (1) Elevated LFTs ICD Codes: R94.5 - Abnormal results of liver function studies SNOMED: 339761987, 557196590 (2) Fatty liver ICD Codes: K76.0 - Fatty (change of) liver, not elsewhere classified SNOMED: 033300859 (3) History of cholecystectomy ICD Codes: Z90.49 - Acquired absence of other specified parts of digestive tract SNOMED: 45783964, 544122306 (4) Thrombocytopenia ICD Codes: D69.6 - Thrombocytopenia, unspecified SNOMED: 266817624 (5) possible panreatitis (6) Sepsis ICD Codes: A41.9 - Sepsis, unspecified organism SNOMED: 61924732 (7) Ventilator dependence ICD Codes: Z99.11 - Dependence on respirator [ventilator] status SNOMED: 446321484 (8) Hyponatremia ICD Codes: E87.1 - Hypo-osmolality and hyponatremia SNOMED: 11006730 (9) Respiratory failure, acute ICD Codes: J96.00 - Acute respiratory failure, unspecified whether with hypoxia or hypercapnia SNOMED: 72783259 (10) Acute metabolic encephalopathy ICD Codes: G93.41 - Metabolic encephalopathy SNOMED: 10898506, 415849949 (11) Pneumonia ICD Codes: J18.9 - Pneumonia, unspecified organism SNOMED: 515527978 (12) Hypotension ICD Codes: I95.9 - Hypotension, unspecified SNOMED: 75820711 (13) CAD (coronary artery disease) ICD Codes: I25.10 - Atherosclerotic heart disease of [place] coronary artery without angina pectoris SNOMED: 52450192 Assessment/Plan us reviewed no dilated CBD fu lfts elevated LFTS due to meds vs ischemia off TYL, protonix and lipitor no need for ERCP at this time ngtf repeat labs supportive care rectal tube on HD weaning in progress Subjective ROS Limited/Unobtainable: No Allergies: Coded Allergies: PENICILLINS (Verified Allergy, Unknown, 10/09/18) Objective Last 24 Hour Vital Signs Date Time Temp Pulse Resp B/P (MAP) Pulse Ox O2 Delivery O2 Flow Rate FiO2 10/29/18 08:30 85 20 101/40 (60) 100 10/29/18 08:00 40 10/29/18 08:00 88 20 100/43 (62) 100 10/29/18 08:00 Mechanical Ventilator 10/29/18 07:30 86 20 108/60 (76) 100 10/29/18 07:00 97.5 88 23 105/55 (72) 100 10/29/18 06:30 86 23 107/57 (74) 100 10/29/18 06:00 88 15 97/42 (60) 100 10/29/18 05:30 86 23 92/46 (61) 100 10/29/18 05:01 86 25 40 10/29/18 05:00 86 25 95/45 (62) 100 10/29/18 05:00 95/45 10/29/18 04:30 86 17 94/39 (57) 100 10/29/18 04:00 97.6 86 25 101/47 (65) 100 10/29/18 04:00 40 10/29/18 04:00 101/47 10/29/18 04:00 Mechanical Ventilator 10/29/18 03:30 86 18 102/35 (57) 100 10/29/18 03:09 87 10/29/18 03:00 86 21 100/79 (86) 100 10/29/18 03:00 100/79 10/29/18 02:50 87 26 40 10/29/18 02:30 86 18 88/56 (67) 100 10/29/18 02:00 88/56 10/29/18 02:00 86 20 102/33 (56) 100 10/29/18 01:30 86 24 102/41 (61) 100 10/29/18 01:00 86 13 101/34 (56) 100 10/29/18 01:00 101/34 10/29/18 00:45 86 29 40 10/29/18 00:30 86 20 101/47 (65) 100 10/29/18 00:00 40 10/29/18 00:00 98.2 87 25 101/46 (64) 100 10/29/18 00:00 101/46 10/29/18 00:00 Mechanical Ventilator 10/28/18 23:36 102/32 10/28/18 23:30 87 23 102/32 (55) 100 10/28/18 23:11 88 10/28/18 23:04 87 31 40 10/28/18 23:00 103/71 10/28/18 23:00 87 20 103/47 (65) 100 10/28/18 22:30 87 24 100/50 (67) 100 10/28/18 22:00 88 12 103/46 (65) 100 10/28/18 22:00 103/46 10/28/18 21:30 90 15 107/39 (61) 100 10/28/18 21:06 81 25 40 10/28/18 21:00 71/38 10/28/18 21:00 83 16 89/52 (64) 100 10/28/18 20:30 85 18 67/54 (58) 100 10/28/18 20:00 86/41 10/28/18 20:00 98.2 87 17 86/41 (56) 100 10/28/18 20:00 40 10/28/18 20:00 Mechanical Ventilator 10/28/18 19:30 87 24 93/45 (61) 100 10/28/18 19:13 88 10/28/18 19:00 87 25 90/45 (60) 100 10/28/18 19:00 90/45 10/28/18 18:49 90 26 40 10/28/18 18:30 89 16 104/37 (59) 100 10/28/18 18:00 89 0 95/44 (61) 100 10/28/18 17:30 89 0 105/41 (62) 100 10/28/18 17:24 88 25 40 10/28/18 17:00 91 9 94/50 (65) 100 10/28/18 16:30 82 2 63/29 (40) 100 10/28/18 16:00 98.0 83 13 91/44 (60) 100 10/28/18 16:00 88 10/28/18 16:00 40 10/28/18 16:00 Mechanical Ventilator 10/28/18 15:30 86 0 96/48 (64) 100 10/28/18 15:00 93 16 74/42 (53) 100 10/28/18 14:49 106 32 40 10/28/18 14:30 92 16 117/58 (77) 100 10/28/18 14:00 90 4 98/42 (60) 100 10/28/18 13:30 88 0 90/39 (56) 100 10/28/18 13:00 90 0 94/45 (61) 100 10/28/18 12:31 91 30 40 10/28/18 12:30 91 30 89/46 (60) 100 10/28/18 12:00 85 10/28/18 12:00 98.2 92 20 104/42 (62) 100 10/28/18 12:00 40 10/28/18 12:00 Mechanical Ventilator 10/28/18 11:30 95 20 103/51 (68) 100 10/28/18 11:00 108 24 108/52 (70) 99 10/28/18 10:47 109 32 40 10/28/18 10:30 108 28 105/53 (70) 100 10/28/18 10:00 108 27 112/58 (76) 98 10/28/18 09:39 9 Intake and Output 10/28/18 10/29/18 18:59 06:59 Intake Total 817.50 ml 1112.9 ml Output Total 50 ml 50 ml Balance 767.50 ml 1062.9 ml Free Water 100 ml IV Total 337.50 ml 532.9 ml Tube Feeding 480 ml 480 ml Output Urine Total 0 ml Stool Total 50 ml 50 ml Laboratory Tests 10/28/18 10:55: Arterial Blood pH 7.345L, Arterial Blood Partial Pressure CO2 43.3, Arterial Blood Partial Pressure O2 81.5, Arterial Blood HCO3 23.1, Arterial Blood Oxygen Saturation 94.3L, Arterial Blood Base Excess -2.5L, Tee Test Positive 10/29/18 04:30: White Blood Count 16.7H, Red Blood Count 3.02L, Hemoglobin 8.3L, Hematocrit 26.3L, Mean Corpuscular Volume 87, Mean Corpuscular Hemoglobin 27.4, Mean Corpuscular Hemoglobin Concent 31.3L, Red Cell Distribution Width 24.5H, Platelet Count 94L, Mean Platelet Volume 8.6, Neutrophils (%) (Auto) , Lymphocytes (%) (Auto) , Monocytes (%) (Auto) , Eosinophils (%) (Auto) , Basophils (%) (Auto) , Neutrophils % (Manual) [Pending], Lymphocytes % (Manual) [Pending], Platelet Estimate [Pending], Platelet Morphology [Pending], Prothrombin Time 13.8H, Prothromb Time International Ratio 1.3H, Sodium Level 123L, Potassium Level 3.8, Chloride Level 88L, Carbon Dioxide Level 21, Anion Gap 15, Blood Urea Nitrogen 76H, Creatinine 4.4H, Estimat Glomerular Filtration Rate , Glucose Level 136H, Calcium Level 7.2L, Phosphorus Level 4.4, Total Bilirubin 4.1H, Direct Bilirubin 3.4H, Aspartate Amino Transf (AST/SGOT) 138H, Alanine Aminotransferase (ALT/SGPT) 102H, Alkaline Phosphatase 261H, Total Protein 5.3L, Albumin 1.3L, Globulin 4.0, Albumin/Globulin Ratio 0.3L, Random Vancomycin Level 26.4 Height (Feet): 5 Height (Inches): 2.00 Weight (Pounds): 202 General Appearance: no apparent distress EENT: normal ENT inspection Neck: supple Cardiovascular: tachycardia Respiratory/Chest: decreased breath sounds Abdomen: normal bowel sounds, non tender, soft Extremities: non-tender Baldemar Hawley MD Oct 29, 2018 09:37
--- NOTE | 2018-10-29 10:00 | NUR ---
NURSE NOTES: SON CALLED AND GOT UPDATES REGARDING PLAN OF CARE FOR TODAY. TURNED AND REPOSITIONED. VSS. NO DISTRESS NOTED AT THIS TIME. WILL CONTINUE TO MONITOR PATIENT.
--- NOTE | 2018-10-29 10:34 | Urology Progress Note ---
Assessment/Plan Assessment/Plan 1. Renal failure, which is acute on chronic. 2. Right-sided hydronephrosis. 3. Renal cyst. 4. Scrotal edema. 5. History of prostate cancer, status post radical prostatectomy. monitor renal fxn consider right ureteral stent or nephrostomy scrotal elevation consider cooper cath abx as ordered Subjective Allergies: Coded Allergies: PENICILLINS (Verified Allergy, Unknown, 10/09/18) Subjective vent, non-verbal Objective Last 24 Hour Vital Signs Date Time Temp Pulse Resp B/P (MAP) Pulse Ox O2 Delivery O2 Flow Rate FiO2 10/29/18 08:30 85 20 101/40 (60) 100 10/29/18 08:00 40 10/29/18 08:00 88 20 100/43 (62) 100 10/29/18 08:00 Mechanical Ventilator 10/29/18 07:30 86 20 108/60 (76) 100 10/29/18 07:00 97.5 88 23 105/55 (72) 100 10/29/18 06:30 86 23 107/57 (74) 100 10/29/18 06:00 88 15 97/42 (60) 100 10/29/18 05:30 86 23 92/46 (61) 100 10/29/18 05:01 86 25 40 10/29/18 05:00 86 25 95/45 (62) 100 10/29/18 05:00 95/45 10/29/18 04:30 86 17 94/39 (57) 100 10/29/18 04:00 97.6 86 25 101/47 (65) 100 10/29/18 04:00 40 10/29/18 04:00 101/47 10/29/18 04:00 Mechanical Ventilator 10/29/18 03:30 86 18 102/35 (57) 100 10/29/18 03:09 87 10/29/18 03:00 86 21 100/79 (86) 100 10/29/18 03:00 100/79 10/29/18 02:50 87 26 40 10/29/18 02:30 86 18 88/56 (67) 100 10/29/18 02:00 88/56 10/29/18 02:00 86 20 102/33 (56) 100 10/29/18 01:30 86 24 102/41 (61) 100 10/29/18 01:00 86 13 101/34 (56) 100 10/29/18 01:00 101/34 10/29/18 00:45 86 29 40 10/29/18 00:30 86 20 101/47 (65) 100 10/29/18 00:00 40 10/29/18 00:00 98.2 87 25 101/46 (64) 100 10/29/18 00:00 101/46 10/29/18 00:00 Mechanical Ventilator 10/28/18 23:36 102/32 10/28/18 23:30 87 23 102/32 (55) 100 10/28/18 23:11 88 10/28/18 23:04 87 31 40 10/28/18 23:00 103/71 10/28/18 23:00 87 20 103/47 (65) 100 10/28/18 22:30 87 24 100/50 (67) 100 10/28/18 22:00 88 12 103/46 (65) 100 10/28/18 22:00 103/46 10/28/18 21:30 90 15 107/39 (61) 100 10/28/18 21:06 81 25 40 10/28/18 21:00 71/38 10/28/18 21:00 83 16 89/52 (64) 100 10/28/18 20:30 85 18 67/54 (58) 100 10/28/18 20:00 86/41 10/28/18 20:00 98.2 87 17 86/41 (56) 100 10/28/18 20:00 40 10/28/18 20:00 Mechanical Ventilator 10/28/18 19:30 87 24 93/45 (61) 100 10/28/18 19:13 88 10/28/18 19:00 87 25 90/45 (60) 100 10/28/18 19:00 90/45 10/28/18 18:49 90 26 40 10/28/18 18:30 89 16 104/37 (59) 100 10/28/18 18:00 89 0 95/44 (61) 100 10/28/18 17:30 89 0 105/41 (62) 100 10/28/18 17:24 88 25 40 10/28/18 17:00 91 9 94/50 (65) 100 10/28/18 16:30 82 2 63/29 (40) 100 10/28/18 16:00 98.0 83 13 91/44 (60) 100 10/28/18 16:00 88 10/28/18 16:00 40 10/28/18 16:00 Mechanical Ventilator 10/28/18 15:30 86 0 96/48 (64) 100 10/28/18 15:00 93 16 74/42 (53) 100 10/28/18 14:49 106 32 40 10/28/18 14:30 92 16 117/58 (77) 100 10/28/18 14:00 90 4 98/42 (60) 100 10/28/18 13:30 88 0 90/39 (56) 100 10/28/18 13:00 90 0 94/45 (61) 100 10/28/18 12:31 91 30 40 10/28/18 12:30 91 30 89/46 (60) 100 10/28/18 12:00 85 10/28/18 12:00 98.2 92 20 104/42 (62) 100 10/28/18 12:00 40 10/28/18 12:00 Mechanical Ventilator 10/28/18 11:30 95 20 103/51 (68) 100 10/28/18 11:00 108 24 108/52 (70) 99 10/28/18 10:47 109 32 40 Intake and Output 10/28/18 10/29/18 19:00 07:00 Intake Total 821.25 ml 1105.4 ml Output Total 50 ml 50 ml Balance 771.25 ml 1055.4 ml Free Water 100 ml IV Total 341.25 ml 525.4 ml Tube Feeding 480 ml 480 ml Output Urine Total 0 ml Stool Total 50 ml 50 ml Microbiology Date/Time Source Procedure Growth Status 10/20/18 06:10 Blood Blood Culture - Final NO GROWTH AFTER 5 DAYS Complete 10/20/18 10:00 Sputum Induced Gram Stain - Final Complete 10/20/18 10:00 Sputum Culture - Final Ana Laura Species Usual Respiratory Melany Complete 10/24/18 01:35 Stool Clostridium difficile Toxin Assay - Final Complete Current Medications Medications (Trade) Dose Ordered Sig/Ashely Route PRN Reason Start Time Stop Time Status Last Admin Dose Admin Albumin Human 250 ml @ 250 mls/hr Q1H PRN IV sbp<90 during hd 10/29/18 08:00 10/29/18 18:00 Aspirin (Ecotrin) 81 mg DAILY ORAL 10/19/18 09:00 11/09/18 08:59 10/27/18 08:49 Barium Sulfate (Readi-Cat 2) 450 ml NOW PRN ORAL Radiology Procedure 10/28/18 12:15 10/30/18 12:07 Calcium Carbonate (Tums) 500 mg BID GT 10/20/18 18:00 11/09/18 08:59 10/28/18 17:31 Chlorhexidine Gluconate (Anai-Hex 2%) 1 applic DAILY@2000 TOPIC 10/18/18 20:00 11/12/18 19:59 10/28/18 19:55 Dextrose (Dextrose 50%) 25 ml Q30M PRN IV Hypoglycemia 10/23/18 08:15 11/22/18 08:14 Dextrose (Dextrose 50%) 50 ml Q30M PRN IV Hypoglycemia 10/23/18 08:15 11/22/18 08:14 Dobutamine HCl 250 ml @ 10.05 mls/ hr Q24H IV 10/19/18 11:40 11/18/18 11:39 10/22/18 12:43 Dopamine HCl/ Dextrose 250 ml @ 0 mls/hr Q24H IV 10/19/18 12:45 11/18/18 12:44 10/20/18 17:43 Fluconazole/ Sodium Chloride 100 ml @ 100 mls/hr Q24H IV 10/28/18 20:00 11/04/18 19:59 10/28/18 19:56 Haloperidol Lactate (Haldol) 5 mg Q6H PRN IM Agitation 10/18/18 17:00 11/17/18 16:59 Heparin Sodium (Porcine) (Heparin Sod 1000 units/ml 10ml) 500 unit ONCE PRN IV HD USE 10/29/18 08:00 10/29/18 18:00 Insulin Aspart (NovoLOG) EVERY 4 HOURS SUBQ 10/23/18 09:00 11/22/18 08:59 10/29/18 04:37 Latanoprost (Xalatan) 1 drop BEDTIME BOTH EYES 10/18/18 21:00 11/10/18 20:59 10/28/18 21:20 Loperamide HCl (Imodium) 2 mg Q4H PRN ORAL Diarrhea 2/20/19 09:45 11/26/18 09:44 Meropenem 500 mg/ Sodium Chloride 50 ml @ 100 mls/hr Q24HRS IVPB 10/29/18 00:00 11/03/18 00:00 10/28/18 23:35 Norepinephrine Bitartrate 16 mg/ Dextrose 500 ml @ 0 mls/hr Q24H IV 10/20/18 18:00 11/19/18 17:59 10/28/18 23:36 Ondansetron HCl (Zofran) 4 mg Q8H PRN IVP Nausea & Vomiting 10/18/18 17:00 11/17/18 16:59 Promethazine HCl (Phenergan Plain) 6.25 mg Q6H PRN ORAL For Cough 10/18/18 16:45 11/10/18 04:32 Vancomycin HCl (Vanco rx to dose) 1 ea DAILY PRN MISC Per rx protocol 10/19/18 23:30 11/18/18 23:29 Vasopressin 100 units/Sodium Chloride 100 ml @ 2.4 mls/hr Q24H IV 10/22/18 15:00 11/21/18 14:59 10/25/18 15:13 Laboratory Tests 10/28/18 10:55: Arterial Blood pH 7.345L, Arterial Blood Partial Pressure CO2 43.3, Arterial Blood Partial Pressure O2 81.5, Arterial Blood HCO3 23.1, Arterial Blood Oxygen Saturation 94.3L, Arterial Blood Base Excess -2.5L, Tee Test Positive 10/29/18 04:30: White Blood Count 16.7H, Red Blood Count 3.02L, Hemoglobin 8.3L, Hematocrit 26.3L, Mean Corpuscular Volume 87, Mean Corpuscular Hemoglobin 27.4, Mean Corpuscular Hemoglobin Concent 31.3L, Red Cell Distribution Width 24.5H, Platelet Count 94L, Mean Platelet Volume 8.6, Neutrophils (%) (Auto) , Lymphocytes (%) (Auto) , Monocytes (%) (Auto) , Eosinophils (%) (Auto) , Basophils (%) (Auto) , Differential Total Cells Counted 100, Neutrophils % ( Manual) 92H, Lymphocytes % (Manual) 2L, Monocytes % (Manual) 6, Eosinophils % ( Manual) 0, Basophils % (Manual) 0, Band Neutrophils 0, Platelet Estimate DecreasedL, Platelet Morphology Normal, Polychromasia 2+, Hypochromasia 1+, Anisocytosis 2+, Prothrombin Time 13.8H, Prothromb Time International Ratio 1.3H , Sodium Level 123L, Potassium Level 3.8, Chloride Level 88L, Carbon Dioxide Level 21, Anion Gap 15, Blood Urea Nitrogen 76H, Creatinine 4.4H, Estimat Glomerular Filtration Rate , Glucose Level 136H, Calcium Level 7.2L, Phosphorus Level 4.4, Total Bilirubin 4.1H, Direct Bilirubin 3.4H, Aspartate Amino Transf ( AST/SGOT) 138H, Alanine Aminotransferase (ALT/SGPT) 102H, Alkaline Phosphatase 261H, Total Protein 5.3L, Albumin 1.3L, Globulin 4.0, Albumin/Globulin Ratio 0.3L, Random Vancomycin Level 26.4 Height (Feet): 5 Height (Inches): 2.00 Weight (Pounds): 202 Objective exam stable Aaron Eduardo MD Oct 29, 2018 10:34
[2018-10-29] MEDS: Aspirin EC 81mg tab ORAL SCH (10:38)
[2018-10-29] MEDS: Tums 500mg GT SCH ×2 (10:38→18:00)
[2018-10-29] MEDS: DOBUTamine 250mg/250ml Premix 250 ML IV SCH (11:40)
--- NOTE | 2018-10-29 12:00 | NUR ---
NURSE NOTES: Patient turned and repositoined. No new orders at this time. VSS. Will continue to monitor patient.
[2018-10-29] MEDS: DOPamine 400mg/250ml 250 ML IV SCH (12:12)
--- NOTE | 2018-10-29 12:34 | Nephrology Progress Note ---
Assessment/Plan Problem List: (1) Acute kidney injury superimposed on CKD Assessment: no recovery (2) CHF (congestive heart failure) (3) NSTEMI (non-ST elevated myocardial infarction) (4) Hypotension Assessment: still on pressors (5) Pneumonia (6) Hypoglycemia (7) Respiratory failure, acute (8) Sepsis (9) Hyponatremia Assessment: worse Plan HD today Discussed with RN continue pressors abxs per ID follow labs Vent support Trach ? TF Subjective Subjective In NAD Objective Objective Last 24 Hour Vital Signs Date Time Temp Pulse Resp B/P (MAP) Pulse Ox O2 Delivery O2 Flow Rate FiO2 10/29/18 12:12 105/48 10/29/18 11:40 108/56 10/29/18 11:00 105 22 106/48 (67) 100 10/29/18 10:42 104 34 40 10/29/18 10:30 80 22 104/50 (68) 100 10/29/18 10:00 85 22 108/48 (68) 100 10/29/18 09:30 84 22 110/50 (70) 100 10/29/18 09:00 88 20 105/45 (65) 100 10/29/18 08:50 100 10/29/18 08:50 92 34 40 10/29/18 08:30 85 20 101/40 (60) 100 10/29/18 08:00 89 10/29/18 08:00 40 10/29/18 08:00 88 20 100/43 (62) 100 10/29/18 08:00 Mechanical Ventilator 10/29/18 07:30 86 20 108/60 (76) 100 10/29/18 07:00 97.5 88 23 105/55 (72) 100 10/29/18 06:45 93 29 40 10/29/18 06:30 86 23 107/57 (74) 100 10/29/18 06:00 88 15 97/42 (60) 100 10/29/18 05:30 86 23 92/46 (61) 100 10/29/18 05:01 86 25 40 10/29/18 05:00 86 25 95/45 (62) 100 10/29/18 05:00 95/45 10/29/18 04:30 86 17 94/39 (57) 100 10/29/18 04:00 97.6 86 25 101/47 (65) 100 10/29/18 04:00 40 10/29/18 04:00 101/47 10/29/18 04:00 Mechanical Ventilator 10/29/18 03:30 86 18 102/35 (57) 100 10/29/18 03:09 87 10/29/18 03:00 86 21 100/79 (86) 100 10/29/18 03:00 100/79 10/29/18 02:50 87 26 40 10/29/18 02:30 86 18 88/56 (67) 100 10/29/18 02:00 88/56 10/29/18 02:00 86 20 102/33 (56) 100 10/29/18 01:30 86 24 102/41 (61) 100 10/29/18 01:00 86 13 101/34 (56) 100 10/29/18 01:00 101/34 10/29/18 00:45 86 29 40 10/29/18 00:30 86 20 101/47 (65) 100 10/29/18 00:00 40 10/29/18 00:00 98.2 87 25 101/46 (64) 100 10/29/18 00:00 101/46 10/29/18 00:00 Mechanical Ventilator 10/28/18 23:36 102/32 10/28/18 23:30 87 23 102/32 (55) 100 10/28/18 23:11 88 10/28/18 23:04 87 31 40 10/28/18 23:00 103/71 10/28/18 23:00 87 20 103/47 (65) 100 10/28/18 22:30 87 24 100/50 (67) 100 10/28/18 22:00 88 12 103/46 (65) 100 10/28/18 22:00 103/46 10/28/18 21:30 90 15 107/39 (61) 100 10/28/18 21:06 81 25 40 10/28/18 21:00 71/38 10/28/18 21:00 83 16 89/52 (64) 100 10/28/18 20:30 85 18 67/54 (58) 100 10/28/18 20:00 86/41 10/28/18 20:00 98.2 87 17 86/41 (56) 100 10/28/18 20:00 40 10/28/18 20:00 Mechanical Ventilator 10/28/18 19:30 87 24 93/45 (61) 100 10/28/18 19:13 88 10/28/18 19:00 87 25 90/45 (60) 100 10/28/18 19:00 90/45 10/28/18 18:49 90 26 40 10/28/18 18:30 89 16 104/37 (59) 100 10/28/18 18:00 89 0 95/44 (61) 100 10/28/18 17:30 89 0 105/41 (62) 100 10/28/18 17:24 88 25 40 10/28/18 17:00 91 9 94/50 (65) 100 10/28/18 16:30 82 2 63/29 (40) 100 10/28/18 16:00 98.0 83 13 91/44 (60) 100 10/28/18 16:00 88 10/28/18 16:00 40 10/28/18 16:00 Mechanical Ventilator 10/28/18 15:30 86 0 96/48 (64) 100 10/28/18 15:00 93 16 74/42 (53) 100 10/28/18 14:49 106 32 40 10/28/18 14:30 92 16 117/58 (77) 100 10/28/18 14:00 90 4 98/42 (60) 100 10/28/18 13:30 88 0 90/39 (56) 100 10/28/18 13:00 90 0 94/45 (61) 100 Intake and Output 10/28/18 10/29/18 19:00 07:00 Intake Total 821.25 ml 1105.4 ml Output Total 50 ml 50 ml Balance 771.25 ml 1055.4 ml Free Water 100 ml IV Total 341.25 ml 525.4 ml Tube Feeding 480 ml 480 ml Output Urine Total 0 ml Stool Total 50 ml 50 ml Laboratory Tests 10/29/18 04:30: White Blood Count 16.7H, Red Blood Count 3.02L, Hemoglobin 8.3L, Hematocrit 26.3L, Mean Corpuscular Volume 87, Mean Corpuscular Hemoglobin 27.4, Mean Corpuscular Hemoglobin Concent 31.3L, Red Cell Distribution Width 24.5H, Platelet Count 94L, Mean Platelet Volume 8.6, Neutrophils (%) (Auto) , Lymphocytes (%) (Auto) , Monocytes (%) (Auto) , Eosinophils (%) (Auto) , Basophils (%) (Auto) , Differential Total Cells Counted 100, Neutrophils % ( Manual) 92H, Lymphocytes % (Manual) 2L, Monocytes % (Manual) 6, Eosinophils % ( Manual) 0, Basophils % (Manual) 0, Band Neutrophils 0, Platelet Estimate DecreasedL, Platelet Morphology Normal, Polychromasia 2+, Hypochromasia 1+, Anisocytosis 2+, Prothrombin Time 13.8H, Prothromb Time International Ratio 1.3H , Sodium Level 123L, Potassium Level 3.8, Chloride Level 88L, Carbon Dioxide Level 21, Anion Gap 15, Blood Urea Nitrogen 76H, Creatinine 4.4H, Estimat Glomerular Filtration Rate , Glucose Level 136H, Calcium Level 7.2L, Phosphorus Level 4.4, Total Bilirubin 4.1H, Direct Bilirubin 3.4H, Aspartate Amino Transf ( AST/SGOT) 138H, Alanine Aminotransferase (ALT/SGPT) 102H, Alkaline Phosphatase 261H, Total Protein 5.3L, Albumin 1.3L, Globulin 4.0, Albumin/Globulin Ratio 0.3L, Random Vancomycin Level 26.4 Height (Feet): 5 Height (Inches): 2.00 Weight (Pounds): 202 Cardiovascular: normal rate Respiratory/Chest: lungs clear Extremities: moderate edema Mario Porter MD Oct 29, 2018 12:33
--- NOTE | 2018-10-29 13:53 | General Progress Note ---
Assessment/Plan Problem List: (1) CKD (chronic kidney disease) ICD Codes: N18.9 - Chronic kidney disease, unspecified SNOMED: 396044067 (2) Hypoglycemia ICD Codes: E16.2 - Hypoglycemia, unspecified SNOMED: 431350961 (3) Altered mental status ICD Codes: R41.82 - Altered mental status, unspecified SNOMED: 802471840 (4) Ventilator dependence ICD Codes: Z99.11 - Dependence on respirator [ventilator] status SNOMED: 261681631 (5) Hyponatremia ICD Codes: E87.1 - Hypo-osmolality and hyponatremia SNOMED: 39865796 Assessment/Plan glucose values are stable continue glucose monitoring every 4 hours - low dose Novolog coverage hypoglycemia protocol in order Subjective ROS Limited/Unobtainable: Yes Allergies: Coded Allergies: PENICILLINS (Verified Allergy, Unknown, 10/09/18) All Systems: reviewed and negative except above Subjective events noted remained intubated Item Value Date Time Bedside Blood Glucose 110 mg/dl 10/29/18 1300 Bedside Blood Glucose 149 mg/dl H 10/29/18 1039 Bedside Blood Glucose 141 mg/dl H 10/29/18 0438 Bedside Blood Glucose 132 mg/dl H 10/29/18 0051 Bedside Blood Glucose 102 mg/dl 10/28/18 2100 Bedside Blood Glucose 110 mg/dl 10/28/18 1700 Bedside Blood Glucose 127 mg/dl H 10/28/18 1315 Bedside Blood Glucose 179 mg/dl H 10/28/18 0900 Objective Last 24 Hour Vital Signs Date Time Temp Pulse Resp B/P (MAP) Pulse Ox O2 Delivery O2 Flow Rate FiO2 10/29/18 12:55 102 31 40 10/29/18 12:12 105/48 10/29/18 12:00 40 10/29/18 12:00 Mechanical Ventilator 10/29/18 11:40 108/56 10/29/18 11:00 105 22 106/48 (67) 100 10/29/18 10:42 104 34 40 10/29/18 10:30 80 22 104/50 (68) 100 10/29/18 10:00 85 22 108/48 (68) 100 10/29/18 09:30 84 22 110/50 (70) 100 10/29/18 09:00 88 20 105/45 (65) 100 10/29/18 08:55 40 10/29/18 08:50 100 10/29/18 08:50 92 34 40 10/29/18 08:30 85 20 101/40 (60) 100 10/29/18 08:00 89 10/29/18 08:00 40 10/29/18 08:00 88 20 100/43 (62) 100 10/29/18 08:00 Mechanical Ventilator 10/29/18 07:30 86 20 108/60 (76) 100 10/29/18 07:00 97.5 88 23 105/55 (72) 100 10/29/18 06:45 93 29 40 10/29/18 06:30 86 23 107/57 (74) 100 10/29/18 06:00 88 15 97/42 (60) 100 10/29/18 05:30 86 23 92/46 (61) 100 10/29/18 05:01 86 25 40 10/29/18 05:00 86 25 95/45 (62) 100 10/29/18 05:00 95/45 10/29/18 04:30 86 17 94/39 (57) 100 10/29/18 04:00 97.6 86 25 101/47 (65) 100 10/29/18 04:00 40 10/29/18 04:00 101/47 10/29/18 04:00 Mechanical Ventilator 10/29/18 03:30 86 18 102/35 (57) 100 10/29/18 03:09 87 10/29/18 03:00 86 21 100/79 (86) 100 10/29/18 03:00 100/79 10/29/18 02:50 87 26 40 10/29/18 02:30 86 18 88/56 (67) 100 10/29/18 02:00 88/56 10/29/18 02:00 86 20 102/33 (56) 100 10/29/18 01:30 86 24 102/41 (61) 100 10/29/18 01:00 86 13 101/34 (56) 100 10/29/18 01:00 101/34 10/29/18 00:45 86 29 40 10/29/18 00:30 86 20 101/47 (65) 100 10/29/18 00:00 40 10/29/18 00:00 98.2 87 25 101/46 (64) 100 10/29/18 00:00 101/46 10/29/18 00:00 Mechanical Ventilator 10/28/18 23:36 102/32 10/28/18 23:30 87 23 102/32 (55) 100 10/28/18 23:11 88 10/28/18 23:04 87 31 40 10/28/18 23:00 103/71 10/28/18 23:00 87 20 103/47 (65) 100 10/28/18 22:30 87 24 100/50 (67) 100 10/28/18 22:00 88 12 103/46 (65) 100 10/28/18 22:00 103/46 10/28/18 21:30 90 15 107/39 (61) 100 10/28/18 21:06 81 25 40 10/28/18 21:00 71/38 10/28/18 21:00 83 16 89/52 (64) 100 10/28/18 20:30 85 18 67/54 (58) 100 10/28/18 20:00 86/41 10/28/18 20:00 98.2 87 17 86/41 (56) 100 10/28/18 20:00 40 10/28/18 20:00 Mechanical Ventilator 10/28/18 19:30 87 24 93/45 (61) 100 10/28/18 19:13 88 10/28/18 19:00 87 25 90/45 (60) 100 10/28/18 19:00 90/45 10/28/18 18:49 90 26 40 10/28/18 18:30 89 16 104/37 (59) 100 10/28/18 18:00 89 0 95/44 (61) 100 10/28/18 17:30 89 0 105/41 (62) 100 10/28/18 17:24 88 25 40 10/28/18 17:00 91 9 94/50 (65) 100 10/28/18 16:30 82 2 63/29 (40) 100 10/28/18 16:00 98.0 83 13 91/44 (60) 100 10/28/18 16:00 88 10/28/18 16:00 40 10/28/18 16:00 Mechanical Ventilator 10/28/18 15:30 86 0 96/48 (64) 100 10/28/18 15:00 93 16 74/42 (53) 100 10/28/18 14:49 106 32 40 10/28/18 14:30 92 16 117/58 (77) 100 10/28/18 14:00 90 4 98/42 (60) 100 Intake and Output 10/28/18 10/29/18 19:00 07:00 Intake Total 821.25 ml 1105.4 ml Output Total 50 ml 50 ml Balance 771.25 ml 1055.4 ml Free Water 100 ml IV Total 341.25 ml 525.4 ml Tube Feeding 480 ml 480 ml Output Urine Total 0 ml Stool Total 50 ml 50 ml Laboratory Tests 10/29/18 04:30: White Blood Count 16.7H, Red Blood Count 3.02L, Hemoglobin 8.3L, Hematocrit 26.3L, Mean Corpuscular Volume 87, Mean Corpuscular Hemoglobin 27.4, Mean Corpuscular Hemoglobin Concent 31.3L, Red Cell Distribution Width 24.5H, Platelet Count 94L, Mean Platelet Volume 8.6, Neutrophils (%) (Auto) , Lymphocytes (%) (Auto) , Monocytes (%) (Auto) , Eosinophils (%) (Auto) , Basophils (%) (Auto) , Differential Total Cells Counted 100, Neutrophils % ( Manual) 92H, Lymphocytes % (Manual) 2L, Monocytes % (Manual) 6, Eosinophils % ( Manual) 0, Basophils % (Manual) 0, Band Neutrophils 0, Platelet Estimate DecreasedL, Platelet Morphology Normal, Polychromasia 2+, Hypochromasia 1+, Anisocytosis 2+, Prothrombin Time 13.8H, Prothromb Time International Ratio 1.3H , Sodium Level 123L, Potassium Level 3.8, Chloride Level 88L, Carbon Dioxide Level 21, Anion Gap 15, Blood Urea Nitrogen 76H, Creatinine 4.4H, Estimat Glomerular Filtration Rate , Glucose Level 136H, Calcium Level 7.2L, Phosphorus Level 4.4, Total Bilirubin 4.1H, Direct Bilirubin 3.4H, Aspartate Amino Transf ( AST/SGOT) 138H, Alanine Aminotransferase (ALT/SGPT) 102H, Alkaline Phosphatase 261H, Total Protein 5.3L, Albumin 1.3L, Globulin 4.0, Albumin/Globulin Ratio 0.3L, Random Vancomycin Level 26.4 Height (Feet): 5 Height (Inches): 2.00 Weight (Pounds): 202 General Appearance: severe distress Neck: normal alignment Cardiovascular: tachycardia Respiratory/Chest: decreased breath sounds Abdomen: normal bowel sounds Objective Current Medications Medications (Trade) Dose Ordered Sig/Ashely Route PRN Reason Start Time Stop Time Status Last Admin Dose Admin Albumin Human 250 ml @ 250 mls/hr Q1H PRN IV sbp<90 during hd 10/29/18 08:00 10/29/18 18:00 Aspirin (Ecotrin) 81 mg DAILY ORAL 10/19/18 09:00 11/09/18 08:59 10/29/18 10:38 Barium Sulfate (Readi-Cat 2) 450 ml NOW PRN ORAL Radiology Procedure 10/28/18 12:15 10/30/18 12:07 Calcium Carbonate (Tums) 500 mg BID GT 10/20/18 18:00 11/09/18 08:59 10/29/18 10:38 Chlorhexidine Gluconate (Anai-Hex 2%) 1 applic DAILY@2000 TOPIC 10/18/18 20:00 11/12/18 19:59 10/28/18 19:55 Dextrose (Dextrose 50%) 25 ml Q30M PRN IV Hypoglycemia 10/23/18 08:15 11/22/18 08:14 Dextrose (Dextrose 50%) 50 ml Q30M PRN IV Hypoglycemia 10/23/18 08:15 11/22/18 08:14 Dobutamine HCl 250 ml @ 10.05 mls/ hr Q24H IV 10/19/18 11:40 11/18/18 11:39 10/22/18 12:43 Dopamine HCl/ Dextrose 250 ml @ 0 mls/hr Q24H IV 10/19/18 12:45 11/18/18 12:44 10/20/18 17:43 Fluconazole/ Sodium Chloride 100 ml @ 100 mls/hr Q24H IV 10/28/18 20:00 11/04/18 19:59 10/28/18 19:56 Haloperidol Lactate (Haldol) 5 mg Q6H PRN IM Agitation 10/18/18 17:00 11/17/18 16:59 Heparin Sodium (Porcine) (Heparin Sod 1000 units/ml 10ml) 500 unit ONCE PRN IV HD USE 10/29/18 08:00 10/29/18 18:00 Insulin Aspart (NovoLOG) EVERY 4 HOURS SUBQ 10/23/18 09:00 11/22/18 08:59 10/29/18 10:39 Latanoprost (Xalatan) 1 drop BEDTIME BOTH EYES 10/18/18 21:00 11/10/18 20:59 10/28/18 21:20 Loperamide HCl (Imodium) 2 mg Q4H PRN ORAL Diarrhea 10/27/18 09:45 11/26/18 09:44 Meropenem 500 mg/ Sodium Chloride 50 ml @ 100 mls/hr Q24HRS IVPB 10/29/18 00:00 11/03/18 00:00 10/28/18 23:35 Norepinephrine Bitartrate 16 mg/ Dextrose 500 ml @ 0 mls/hr Q24H IV 10/20/18 18:00 11/19/18 17:59 10/28/18 23:36 Ondansetron HCl (Zofran) 4 mg Q8H PRN IVP Nausea & Vomiting 10/18/18 17:00 11/17/18 16:59 Promethazine HCl (Phenergan Plain) 6.25 mg Q6H PRN ORAL For Cough 10/18/18 16:45 11/10/18 04:32 Vancomycin HCl (Vanco rx to dose) 1 ea DAILY PRN MISC Per rx protocol 10/19/18 23:30 11/18/18 23:29 Vasopressin 100 units/Sodium Chloride 100 ml @ 2.4 mls/hr Q24H IV 10/22/18 15:00 11/21/18 14:59 10/25/18 15:13 Barry Schmitt MD Oct 29, 2018 13:53
--- NOTE | 2018-10-29 14:00 | NUR ---
NURSE NOTES: Patient turned and repsotined. Currently undergoing dialysis. VSS. Tolerating well.
[2018-10-29] MEDS: Vasopressin 100 UNITS in NS 95 ML IV SCH (14:17)
[2018-10-29] MEDS ORDERED: Norepinephrine 4mg in D5W 250ml IV SCH (16:00)
--- NOTE | 2018-10-29 16:00 | NUR ---
NURSE NOTES: 2 liters out per Dialysis nurse. VSS. No distress noted. Turned and repositioned. Will continue to monitor patient.
--- NOTE | 2018-10-29 16:46 | NUR ---
NURSE NOTES:WOUND CARE NOTES:Pt unavailable for wound assessment as pt is being dialyzed.
[2018-10-29] MEDS: Norepinephrine Bitartrate 16 MG in D5W 500ml 484 ML IV SCH (16:52)
--- NOTE | 2018-10-29 17:00 | NUR ---
RESPIRATORY NOTE: Put pt back on AC mode for rest. Pt is resting comfortably. No resp distress or SOB noted. RN Mary Anne made aware.
--- NOTE | 2018-10-29 18:00 | NUR ---
NURSE NOTES: Patient turned and repositioned. No new orders. Will continue plan of care.
--- NOTE | 2018-10-29 18:05 | Neurology Progress Note ---
Interim History Interim History Interim History Mr. Gann feels better. He continues to be much more responsive. He opens his eyes on vocal stimulation. He is able to give yes/no answers. He follows commands consistently He is still moving his left side better than the right, but the right side is improving. He continues to be on a single pressor. He continues to be intubated and artificially ventilated. He still has significant anasarca. He continues to be ill. Review of Systems Neuro Review of Systems Unable to obtain. Objective Physical Exam Last Vital Signs Date Time Temp Pulse Resp B/P (MAP) Pulse Ox O2 Delivery O2 Flow Rate FiO2 10/29/18 17:00 97 32 40 10/29/18 16:52 95/48 10/29/18 16:00 Mechanical Ventilator 10/29/18 15:30 100 10/29/18 12:00 98.4 10/20/18 16:23 40.0 Laboratory Tests Test 10/29/18 04:30 White Blood Count 16.7 K/UL (4.8-10.8) H Red Blood Count 3.02 M/UL (4.70-6.10) L Hemoglobin 8.3 G/DL (14.2-18.0) L Hematocrit 26.3 % (42.0-52.0) L Mean Corpuscular Volume 87 FL (80-99) Mean Corpuscular Hemoglobin 27.4 PG (27.0-31.0) Mean Corpuscular Hemoglobin Concent 31.3 G/DL (32.0-36.0) L Red Cell Distribution Width 24.5 % (11.6-14.8) H Platelet Count 94 K/UL (150-450) L Mean Platelet Volume 8.6 FL (6.5-10.1) Neutrophils (%) (Auto) % (45.0-75.0) Lymphocytes (%) (Auto) % (20.0-45.0) Monocytes (%) (Auto) % (1.0-10.0) Eosinophils (%) (Auto) % (0.0-3.0) Basophils (%) (Auto) % (0.0-2.0) Differential Total Cells Counted 100 Neutrophils % (Manual) 92 % (45-75) H Lymphocytes % (Manual) 2 % (20-45) L Monocytes % (Manual) 6 % (1-10) Eosinophils % (Manual) 0 % (0-3) Basophils % (Manual) 0 % (0-2) Band Neutrophils 0 % (0-8) Platelet Estimate Decreased L Platelet Morphology Normal Polychromasia 2+ Hypochromasia 1+ Anisocytosis 2+ Prothrombin Time 13.8 SEC (9.30-11.50) H Prothromb Time International Ratio 1.3 (0.9-1.1) H Sodium Level 123 MMOL/L (136-145) L Potassium Level 3.8 MMOL/L (3.5-5.1) Chloride Level 88 MMOL/L (98-107) L Carbon Dioxide Level 21 MMOL/L (21-32) Anion Gap 15 mmol/L (5-15) Blood Urea Nitrogen 76 mg/dL (7-18) H Creatinine 4.4 MG/DL (0.55-1.30) H Estimat Glomerular Filtration Rate mL/min (>60) Glucose Level 136 MG/DL (74-106) H Calcium Level 7.2 MG/DL (8.5-10.1) L Phosphorus Level 4.4 MG/DL (2.5-4.9) Total Bilirubin 4.1 MG/DL (0.2-1.0) H Direct Bilirubin 3.4 MG/DL (0.0-0.3) H Aspartate Amino Transf (AST/SGOT) 138 U/L (15-37) H Alanine Aminotransferase (ALT/SGPT) 102 U/L (12-78) H Alkaline Phosphatase 261 U/L (46-116) H Total Protein 5.3 G/DL (6.4-8.2) L Albumin 1.3 G/DL (3.4-5.0) L Globulin 4.0 g/dL Albumin/Globulin Ratio 0.3 (1.0-2.7) L Random Vancomycin Level 26.4 ug/mL Neurologic Exam Objective PHYSICAL EXAMINATION: GENERAL: He is a well-developed, relatively well-nourished, gentleman , lying in an ICU bed, connected to a ventilator through an orotracheal tube. HEAD: Normocephalic and atraumatic. NECK: No neck rigidity was observed. EENT: Benign. NEUROLOGICAL EXAMINATION: MENTAL STATUS EXAMINATION: He opened his eyes on vocal stimuli. He was brighter. He followed simple commands well. He was able to communicate with yes/no answers. Further mental status testing was impossible. SPEECH: Could not be tested. LANGUAGE: He was able to comprehend well and mouth a few words. CRANIAL NERVE EXAMINATION: II: He did blink to threat. He counted fingers. III, IV & : The external ocular movements were present. The pupils were 3 mm in diameter, equal, round, regular, and did not react to light. V & VII: The corneal reflexes were present bilaterally, but significantly diminished on the right side compared to the left. VIII: He did not respond to sounds and had no nystagmus. IX & X: The gag reflex was absent on manipulating the endotracheal tube. XI: The sternocleidomastoids and trapezii did not function. XII: Could not be tested adequately. MOTOR SYSTEM: The tone was normal in all four extremities. Examination of muscle mass revealed no focal wasting. Examination of power was impossible to perform accurately he moved his left side better than the right - but the right side was stronger. SENSORY EXAMINATION: He responded appropriately to deep pain. He was unable to cooperate for other sensory modalities. REFLEXES: Trace+ and bilaterally symmetrical at the biceps, triceps, brachioradialis. 0 at both knees and ankles. The plantar response was extensor on the right and mute on the left. COORDINATION, STANCE & GAIT: Could not be tested. ABNORMAL MOVEMENTS: Tremor (7-8 Hz): 0/4 Impression/Recommendations Diagnostic Impression 1. Mr. Marla Gann is an 83-year-old, gentleman, of unknown handedness, with a past history of multiple medical problems including hypertension, diabetes mellitus, dyslipidemia, aortic stenosis, vitamin B12 deficiency, vitamin D deficiency, coronary artery disease, congestive heart failure, and intestinal pathology. He was hospitalized on 10/09/2018 for an altered mental state related to multiple metabolic imbalances. He did improve, but then in the hospital, he has had multiple further episodes of hypoglycemia. On the morning of 10/19/18, his blood sugar dropped to 22. He has also had problems with his respiratory function, progressive renal dysfunction, and on the morning of 10/19/18 was noted to have weakness in his right upper extremity, this problem continues. 2. He feels better. He continues to be much more responsive. He opens his eyes on vocal stimulation. He is able to give yes/no answers. He follows commands consistently. He is still moving his left side better than the right but the right side is stronger. He continues to be on a single pressor. He continues to be intubated and artificially ventilated. He still has significant anasarca. He continues to be acutely ill. 3. On neurological examination, at this time, he opens his eyes on vocal stimuli , he is able to follow commands consistently. He is able to communicate with yes /no answers, however further mental status testing is impossible. The corneal reflex is definitely diminished on the right side compared to the left. 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 His deep tendon reflexes are globally diminished in the upper extremities and lost in the lower extremities. His plantar response is extensor on the right and mute on the left. He has no tremor. 4. His laboratory data on my initial evaluation revealed that his WBC count was elevated to 16,000. His hemoglobin was low at 7.2 G. His arterial blood gas revealed a pH of 7.18, a pCO2 of 43, and a pO2 of 112. His chemistry panel revealed a sodium of 133, potassium of 5.3, chloride of 91, BUN at 89, creatinine at 5.2, and blood glucose at 22. 5. His EEG done on 10/19/18 revealed a moderately severe encephalopathy with a definite toxic/metabolic component. 6. The Repeat EEG done on 10/23/18 revealed a moderately severe toxic/metabolic encephalopathy. In addition left > right hemispheric dysfunction was seen. The abnormal movements had no EEG correlate. 7. The CT of the brain was benign for acute pathology. 8. His latest laboratory tests reveal that his leukocytosis is worse with a WBC count of 26,300. He is severely hyponatremic with a Na of 121 and chloride of 86. His BUN is elevated at 72 with a creatinine of 4.9. His LFTs are elevated and so is his glucose. 9. The patient's history, neurological examination, and laboratory data are most compatible with a significant toxic metabolic encephalopathy that brought him into the hospital, and now possibly an acute cerebral lesion causing the right hemiparesis. 10. The left UE movement was a tremor. It has now resolved. However the EEG while he was having the tremor revealed no EEG correlate. 11. His encephalopathy continues to improve. Recommendations 1. Continue present management. 2. Continue to correct toxic metabolic imbalances. 3. Try to keep the blood pressure >110 mmHg systolic. 4. When possible get MRI of brain. 5. Observe closely in ICU setting. Abram Johnson M.D., M.S.P.H. Abram Johnson MD Oct 29, 2018 18:05
--- NOTE | 2018-10-29 18:47 | NUR ---
CASE MANAGEMENT: REVIEW SI: ACUTE RESPIRATORY FAILURE . CAD . PNA T 98.4 HR 105 RR 35 BP 95/48 SAT 100% MECH VENT FIO2 40 WBC 16.7 H/H 8.3/26.3 IS: DOBUTAMINE GTT DOPAMINE GTT LEVOPHED GTT VASOPRESSIN IV Q24HR MEROPENEM IV Q24HR DIFLUCAN IV Q24HR HEMODIALYSIS PRN NPO ICU STATUS DCP: PATIENT IS FROM HOME
--- NOTE | 2018-10-29 18:53 | Cardiology Progress Note ---
Assessment/Plan Assessment/Plan cardiology critical care 1. Hypoglycemia secondary to medication. 2. Diabetes mellitus previously. 3. Acute Respiratory inusf / hemoptysis 4. History of ischemic cardiomyopathy with ejection fraction of 40%. 5. Mitral regurgitation, civnuram-on-twsavv degree on recent echocardiogram last week. 6. Moderate tricuspid regurgitation. 7. Mild pulmonary hypertension with 43 through 48. 8. Pleural effusions history. 9. Abnormal gastric endoscopy, suspicious for malignancy with submucosal resection. 10. Aortic stenosis. 11. Hyperlipidemia. 12. Prostate cancer. 13. Abnormal facial asymmetry. 14. CAD 15. AMS 16. NSTEMI demand related vs PE related doubt acs 17. acute on chronic renal failure 18. metabolic acidosis 19. hemiparesis 20. hypotension / septic shock 21. Thrombocytopenia 22. abn lft probable shock liver ? 23. profound hyponatremia 24. hyper bilirubinemia 25. pelvic mass 26. hydronephrosis and hydroureter echo reviewed has infor post swma and mod mr and ef probabley 35-40% , rv is not enlarge ivc ws enlarged at the time was done v/q was ordered but not done heparin dcd due to thrombocytopenia is on abx adjusted by id bp is littel better on pressor lft down trending bili trendign down d/w son luis , now dnr but otherwise full care if not able to get off caroline pressor will rediscuss next week needs more dialysis toelrate 2 liter removal slowly titrate off levophed as long as map greater than 50 wbc ias better na is better venous duplex neg remains critical but improved d/w rn re very slow taper of levophed dialysis urology noted wean vent as possible Subjective ROS Limited/Unobtainable: Yes Subjective intubated on 1 pressor , but now follows commnads Objective Last 24 Hour Vital Signs Date Time Temp Pulse Resp B/P (MAP) Pulse Ox O2 Delivery O2 Flow Rate FiO2 10/29/18 17:00 97 32 40 10/29/18 16:52 95/48 10/29/18 16:00 Mechanical Ventilator 10/29/18 16:00 101 10/29/18 16:00 40 10/29/18 15:30 105 20 106/60 (75) 100 10/29/18 15:00 101 20 108/60 (76) 100 10/29/18 15:00 104 20 105/62 (76) 100 10/29/18 14:42 104 35 40 10/29/18 14:30 99 20 99/60 (73) 100 10/29/18 14:00 95 22 98/58 (71) 100 10/29/18 13:30 98 22 92/41 (58) 100 10/29/18 13:00 101 22 100/45 (63) 100 10/29/18 12:55 102 31 40 10/29/18 12:30 100 22 92/53 (66) 100 10/29/18 12:12 105/48 10/29/18 12:00 104 10/29/18 12:00 40 10/29/18 12:00 98.4 98 22 94/47 (63) 100 10/29/18 12:00 Mechanical Ventilator 10/29/18 11:40 108/56 10/29/18 11:30 100 22 95/44 (61) 100 10/29/18 11:00 105 22 106/48 (67) 100 10/29/18 10:42 104 34 40 10/29/18 10:30 80 22 104/50 (68) 100 10/29/18 10:00 85 22 108/48 (68) 100 10/29/18 09:30 84 22 110/50 (70) 100 10/29/18 09:00 88 20 105/45 (65) 100 10/29/18 08:55 40 10/29/18 08:50 100 10/29/18 08:50 92 34 40 10/29/18 08:30 85 20 101/40 (60) 100 10/29/18 08:00 89 10/29/18 08:00 40 10/29/18 08:00 88 20 100/43 (62) 100 10/29/18 08:00 Mechanical Ventilator 10/29/18 07:30 86 20 108/60 (76) 100 10/29/18 07:00 97.5 88 23 105/55 (72) 100 10/29/18 06:45 93 29 40 10/29/18 06:30 86 23 107/57 (74) 100 10/29/18 06:00 88 15 97/42 (60) 100 10/29/18 05:30 86 23 92/46 (61) 100 10/29/18 05:01 86 25 40 2/22/19 05:00 86 25 95/45 (62) 100 10/29/18 05:00 95/45 10/29/18 04:30 86 17 94/39 (57) 100 10/29/18 04:00 97.6 86 25 101/47 (65) 100 10/29/18 04:00 40 10/29/18 04:00 101/47 10/29/18 04:00 Mechanical Ventilator 10/29/18 03:30 86 18 102/35 (57) 100 10/29/18 03:09 87 10/29/18 03:00 86 21 100/79 (86) 100 10/29/18 03:00 100/79 10/29/18 02:50 87 26 40 10/29/18 02:30 86 18 88/56 (67) 100 10/29/18 02:00 88/56 10/29/18 02:00 86 20 102/33 (56) 100 10/29/18 01:30 86 24 102/41 (61) 100 10/29/18 01:00 86 13 101/34 (56) 100 10/29/18 01:00 101/34 10/29/18 00:45 86 29 40 10/29/18 00:30 86 20 101/47 (65) 100 10/29/18 00:00 40 10/29/18 00:00 98.2 87 25 101/46 (64) 100 10/29/18 00:00 101/46 10/29/18 00:00 Mechanical Ventilator 10/28/18 23:36 102/32 10/28/18 23:30 87 23 102/32 (55) 100 10/28/18 23:11 88 10/28/18 23:04 87 31 40 10/28/18 23:00 103/71 10/28/18 23:00 87 20 103/47 (65) 100 10/28/18 22:30 87 24 100/50 (67) 100 10/28/18 22:00 88 12 103/46 (65) 100 10/28/18 22:00 103/46 10/28/18 21:30 90 15 107/39 (61) 100 10/28/18 21:06 81 25 40 10/28/18 21:00 71/38 10/28/18 21:00 83 16 89/52 (64) 100 10/28/18 20:30 85 18 67/54 (58) 100 10/28/18 20:00 86/41 10/28/18 20:00 98.2 87 17 86/41 (56) 100 10/28/18 20:00 40 10/28/18 20:00 Mechanical Ventilator 10/28/18 19:30 87 24 93/45 (61) 100 10/28/18 19:13 88 10/28/18 19:00 87 25 90/45 (60) 100 10/28/18 19:00 90/45 10/28/18 18:49 90 26 40 General Appearance: no apparent distress, alert, on vent Neck: supple Cardiovascular: normal rate Respiratory/Chest: lungs clear Abdomen: normal bowel sounds, non tender, soft Extremities: severe edema Intake and Output 10/28/18 10/29/18 19:00 07:00 Intake Total 821.25 ml 1105.4 ml Output Total 50 ml 50 ml Balance 771.25 ml 1055.4 ml Free Water 100 ml IV Total 341.25 ml 525.4 ml Tube Feeding 480 ml 480 ml Output Urine Total 0 ml Stool Total 50 ml 50 ml Laboratory Tests Test 10/29/18 04:30 White Blood Count 16.7 K/UL (4.8-10.8) H Red Blood Count 3.02 M/UL (4.70-6.10) L Hemoglobin 8.3 G/DL (14.2-18.0) L Hematocrit 26.3 % (42.0-52.0) L Mean Corpuscular Volume 87 FL (80-99) Mean Corpuscular Hemoglobin 27.4 PG (27.0-31.0) Mean Corpuscular Hemoglobin Concent 31.3 G/DL (32.0-36.0) L Red Cell Distribution Width 24.5 % (11.6-14.8) H Platelet Count 94 K/UL (150-450) L Mean Platelet Volume 8.6 FL (6.5-10.1) Neutrophils (%) (Auto) % (45.0-75.0) Lymphocytes (%) (Auto) % (20.0-45.0) Monocytes (%) (Auto) % (1.0-10.0) Eosinophils (%) (Auto) % (0.0-3.0) Basophils (%) (Auto) % (0.0-2.0) Differential Total Cells Counted 100 Neutrophils % (Manual) 92 % (45-75) H Lymphocytes % (Manual) 2 % (20-45) L Monocytes % (Manual) 6 % (1-10) Eosinophils % (Manual) 0 % (0-3) Basophils % (Manual) 0 % (0-2) Band Neutrophils 0 % (0-8) Platelet Estimate Decreased L Platelet Morphology Normal Polychromasia 2+ Hypochromasia 1+ Anisocytosis 2+ Prothrombin Time 13.8 SEC (9.30-11.50) H Prothromb Time International Ratio 1.3 (0.9-1.1) H Sodium Level 123 MMOL/L (136-145) L Potassium Level 3.8 MMOL/L (3.5-5.1) Chloride Level 88 MMOL/L (98-107) L Carbon Dioxide Level 21 MMOL/L (21-32) Anion Gap 15 mmol/L (5-15) Blood Urea Nitrogen 76 mg/dL (7-18) H Creatinine 4.4 MG/DL (0.55-1.30) H Estimat Glomerular Filtration Rate mL/min (>60) Glucose Level 136 MG/DL (74-106) H Calcium Level 7.2 MG/DL (8.5-10.1) L Phosphorus Level 4.4 MG/DL (2.5-4.9) Total Bilirubin 4.1 MG/DL (0.2-1.0) H Direct Bilirubin 3.4 MG/DL (0.0-0.3) H Aspartate Amino Transf (AST/SGOT) 138 U/L (15-37) H Alanine Aminotransferase (ALT/SGPT) 102 U/L (12-78) H Alkaline Phosphatase 261 U/L (46-116) H Total Protein 5.3 G/DL (6.4-8.2) L Albumin 1.3 G/DL (3.4-5.0) L Globulin 4.0 g/dL Albumin/Globulin Ratio 0.3 (1.0-2.7) L Random Vancomycin Level 26.4 ug/mL Dg Key MD Oct 29, 2018 18:53
--- NOTE | 2018-10-29 19:10 | NUR ---
HAND-OFF: Report given to Tello RN using SBAR. VSS. No distress noted.
[2018-10-29] MEDS: Dyna-Hex 2% Top Sol 2oz TOPIC SCH (19:43)
--- NOTE | 2018-10-29 19:45 | NUR ---
NURSE NOTES: PATIENT OPEN EYES, ABLE TO EYE CONTACT, DENIED PAIN AND FOLLOW COMMAND AT THIS TIME, ON ETT TO VENT AC20/ TV 500/ FIO2 40%/PEEP5, O2 SATURATION 100% NOTED, OGT INTACT AND PATENT, ONGOING NEPRO AT 40ML/HR, NO RESIDUE NOTED, ABDOMEN LARGE, ROUND, TENDER, GENERALIZED EDEMA, RECTAL TUBE INTACT AND PATENT, GREENISH BROWN COLOR SOLID STOOL OUTED, PICC LINE TO LEFT UPPER ARM, SLIGHT OOZING, INTACT AND PATENT, ONGOING LEVOPHED 15MCG/HR VIA PICC LINE, ABILIO CATH W/ PIG TAIL TO RIGHT IJ, CLEANED DRESSING STATUS, ON P200 BED, MADE LOWER BED POSITION, PROVIDED CALL LIGHT WITHIN REACH, WILL CONTINUE TO MONITOR.
[2018-10-29] MEDS ORDERED: D5W 550ml IV ONE (20:47)
[2018-10-29] MEDS ORDERED: NS 275ml ONE ×2 (20:47→21:00)
[2018-10-29] MEDS ORDERED: Tubing IV Secondary IV ONE ×4 (20:47→21:00)
[2018-10-29] MEDS ORDERED: NS 500ML ONE (20:53)
[2018-10-29] MEDS ORDERED: Sterile Water Irrig 1000ml IRRIG ONE (20:53)
[2018-10-29] MEDS ORDERED: D5NS 1000ml IV ONE (20:53)
[2018-10-29] MEDS: Latanoprost 0.005% Opth 2.5ml Soln BOTH EYES SCH (20:56)
--- NOTE | 2018-10-29 21:50 | NUR ---
NURSE NOTES: PATIENT TRIED TO TOUCH MOUTH BUT DID NOT TOUCH ENDO TUBE, WILL CONTINUE TO MONITOR.
--- NOTE | 2018-10-29 23:39 | General Progress Note ---
Assessment/Plan Assessment/Plan ASSESSMENT/RECS: # Thrombocytopenia -- multiple etiologies possible, has been on heparin gtt which was discontinued on 10/24 --> HIT antibody has been ordered and pending --> smear has been reviewed, no e/o schistocytes is noted --> duplex lower extremities ordered and is negative for dvt --> anemia panel has been reviewed and is negative for hemolysis --> obtain a flow cytometry to r/o leukemia/mds (has been ordered) results to appear under "pathology" # Leukocytosis likely related to underlying sepsis, flow cytometry is negative for underlying malignancy/no leukemia noted, no distinct immunophentype is noted --> r/o other underlying cuases --> on abx as per id, antifungals --> if stable, can consider a bone marrow biopsy given nucleated cells on the peripheral smear that are persistent # Respiratory failure on a vent --> as per pulm management # Hyponatremia on ivf as per nephro # Colonic distention, abnormal liver function tests. --> as per gi # ESRD on hd as per vip --> on hd The timing of this note does not necessarily reflect the time of the patient was seen. Greatly appreciate consultation! Subjective Date patient seen: Oct 28, 2018 ROS Limited/Unobtainable: Yes Allergies: Coded Allergies: PENICILLINS (Verified Allergy, Unknown, 10/09/18) Subjective 10/25: pt was seen in ICU , more alert today, no acute events reported. plt 64, wbc 19, flow cytometry ordered, off heparin gtt 10/26: in icu still, per rn is off heparin gtt, currently symptoms are better, no fevers or chills noted, on pressor but less 10/27:plt 67, intubated on 1 pressor , but now follows commands, no events 10/28: Pt is intubated, non verbal, no events Objective Last 24 Hour Vital Signs Date Time Temp Pulse Resp B/P (MAP) Pulse Ox O2 Delivery O2 Flow Rate FiO2 10/29/18 23:30 88 20 97/35 (55) 100 10/29/18 23:29 93 31 40 10/29/18 23:00 88 20 88/47 (61) 100 10/29/18 22:30 88 23 96/41 (59) 100 10/29/18 22:00 89 20 91/40 (57) 100 10/29/18 21:30 89 20 90/41 (57) 100 10/29/18 21:00 90 20 98/38 (58) 100 10/29/18 20:34 91 34 40 10/29/18 20:30 91 20 97/48 (64) 100 10/29/18 20:00 98.3 92 20 91/49 (63) 100 10/29/18 20:00 40 10/29/18 20:00 Mechanical Ventilator 10/29/18 19:35 90 10/29/18 19:30 91 20 93/39 (57) 99 10/29/18 19:21 91 34 40 40 10/29/18 19:00 95 20 100/65 (77) 100 10/29/18 18:30 99 20 104/70 (81) 100 10/29/18 18:00 98.8 101 20 105/72 (83) 100 10/29/18 17:30 99 20 104/70 (81) 100 10/29/18 17:00 97 32 40 10/29/18 17:00 100 20 102/68 (79) 100 10/29/18 16:52 95/48 10/29/18 16:30 105 20 106/70 (82) 100 10/29/18 16:00 Mechanical Ventilator 10/29/18 16:00 101 10/29/18 16:00 40 10/29/18 16:00 98 20 105/68 (80) 100 10/29/18 15:30 105 20 106/60 (75) 100 10/29/18 15:00 101 20 108/60 (76) 100 10/29/18 15:00 104 20 105/62 (76) 100 10/29/18 14:42 104 35 40 10/29/18 14:30 99 20 99/60 (73) 100 10/29/18 14:00 95 22 98/58 (71) 100 10/29/18 13:30 98 22 92/41 (58) 100 10/29/18 13:00 101 22 100/45 (63) 100 10/29/18 12:55 102 31 40 10/29/18 12:30 100 22 92/53 (66) 100 10/29/18 12:12 105/48 10/29/18 12:00 104 10/29/18 12:00 40 10/29/18 12:00 98.4 98 22 94/47 (63) 100 10/29/18 12:00 Mechanical Ventilator 10/29/18 11:40 108/56 10/29/18 11:30 100 22 95/44 (61) 100 10/29/18 11:00 105 22 106/48 (67) 100 10/29/18 10:42 104 34 40 10/29/18 10:30 80 22 104/50 (68) 100 10/29/18 10:00 85 22 108/48 (68) 100 10/29/18 09:30 84 22 110/50 (70) 100 10/29/18 09:00 88 20 105/45 (65) 100 10/29/18 08:55 40 10/29/18 08:50 100 10/29/18 08:50 92 34 40 10/29/18 08:30 85 20 101/40 (60) 100 10/29/18 08:00 89 10/29/18 08:00 40 10/29/18 08:00 88 20 100/43 (62) 100 10/29/18 08:00 Mechanical Ventilator 10/29/18 07:30 86 20 108/60 (76) 100 10/29/18 07:00 97.5 88 23 105/55 (72) 100 10/29/18 06:45 93 29 40 10/29/18 06:30 86 23 107/57 (74) 100 10/29/18 06:00 88 15 97/42 (60) 100 10/29/18 05:30 86 23 92/46 (61) 100 10/29/18 05:01 86 25 40 10/29/18 05:00 86 25 95/45 (62) 100 10/29/18 05:00 95/45 10/29/18 04:30 86 17 94/39 (57) 100 10/29/18 04:00 97.6 86 25 101/47 (65) 100 10/29/18 04:00 40 10/29/18 04:00 101/47 10/29/18 04:00 Mechanical Ventilator 10/29/18 03:30 86 18 102/35 (57) 100 10/29/18 03:09 87 10/29/18 03:00 86 21 100/79 (86) 100 10/29/18 03:00 100/79 10/29/18 02:50 87 26 40 10/29/18 02:30 86 18 88/56 (67) 100 10/29/18 02:00 88/56 10/29/18 02:00 86 20 102/33 (56) 100 10/29/18 01:30 86 24 102/41 (61) 100 10/29/18 01:00 86 13 101/34 (56) 100 10/29/18 01:00 101/34 10/29/18 00:45 86 29 40 10/29/18 00:30 86 20 101/47 (65) 100 10/29/18 00:00 40 10/29/18 00:00 98.2 87 25 101/46 (64) 100 10/29/18 00:00 101/46 10/29/18 00:00 Mechanical Ventilator Intake and Output 10/28/18 10/29/18 19:00 07:00 Intake Total 821.25 ml 1105.4 ml Output Total 50 ml 50 ml Balance 771.25 ml 1055.4 ml Free Water 100 ml IV Total 341.25 ml 525.4 ml Tube Feeding 480 ml 480 ml Output Urine Total 0 ml Stool Total 50 ml 50 ml Laboratory Tests 10/29/18 04:30: White Blood Count 16.7H, Red Blood Count 3.02L, Hemoglobin 8.3L, Hematocrit 26.3L, Mean Corpuscular Volume 87, Mean Corpuscular Hemoglobin 27.4, Mean Corpuscular Hemoglobin Concent 31.3L, Red Cell Distribution Width 24.5H, Platelet Count 94L, Mean Platelet Volume 8.6, Neutrophils (%) (Auto) , Lymphocytes (%) (Auto) , Monocytes (%) (Auto) , Eosinophils (%) (Auto) , Basophils (%) (Auto) , Differential Total Cells Counted 100, Neutrophils % ( Manual) 92H, Lymphocytes % (Manual) 2L, Monocytes % (Manual) 6, Eosinophils % ( Manual) 0, Basophils % (Manual) 0, Band Neutrophils 0, Platelet Estimate DecreasedL, Platelet Morphology Normal, Polychromasia 2+, Hypochromasia 1+, Anisocytosis 2+, Prothrombin Time 13.8H, Prothromb Time International Ratio 1.3H , Sodium Level 123L, Potassium Level 3.8, Chloride Level 88L, Carbon Dioxide Level 21, Anion Gap 15, Blood Urea Nitrogen 76H, Creatinine 4.4H, Estimat Glomerular Filtration Rate , Glucose Level 136H, Calcium Level 7.2L, Phosphorus Level 4.4, Total Bilirubin 4.1H, Direct Bilirubin 3.4H, Aspartate Amino Transf ( AST/SGOT) 138H, Alanine Aminotransferase (ALT/SGPT) 102H, Alkaline Phosphatase 261H, Total Protein 5.3L, Albumin 1.3L, Globulin 4.0, Albumin/Globulin Ratio 0.3L, Random Vancomycin Level 26.4 Height (Feet): 5 Height (Inches): 2.00 Weight (Pounds): 202 Objective PHYSICAL EXAMINATION: VITAL SIGNS: reviewed HEENT: Normocephalic and atraumatic. Mild scleral icterus. NECK: Supple. On vent CARDIOVASCULAR: Tachycardic. Regular rr, Plus S1, S2. There is a soft murmur at the left sternal border. LUNGS: ++ vent ABDOMEN: Distended, tympanic to percussion. Hypoactive bowel sounds. EXTREMITIES: No cyanosis, no clubbing, no edema. NEUROLOGIC: More alert Rah Ferreira MD Oct 29, 2018 23:39
--- NOTE | 2018-10-29 23:41 | General Progress Note ---
Assessment/Plan Assessment/Plan ASSESSMENT/RECS: # Thrombocytopenia -- multiple etiologies possible, has been on heparin gtt which was discontinued on 10/24 --> HIT antibody has been ordered and pending --> smear has been reviewed, no e/o schistocytes is noted --> duplex lower extremities ordered and is negative for dvt --> anemia panel has been reviewed and is negative for hemolysis --> flow cytometry reviewed and is negative for leukemia/mds # Leukocytosis likely related to underlying sepsis, flow cytometry is negative for underlying malignancy/no leukemia noted, no distinct immunophentype is noted --> r/o other underlying causes such as infection --> on abx as per id, antifungals --> if stable, can consider a bone marrow biopsy given nucleated cells on the peripheral smear that are persistent in future # Respiratory failure on a vent --> as per pulm management # Hyponatremia on ivf as per nephro # Colonic distention, abnormal liver function tests. --> as per gi # ESRD on hd as per vip --> on hd The timing of this note does not necessarily reflect the time of the patient was seen. Greatly appreciate consultation! Subjective Allergies: Coded Allergies: PENICILLINS (Verified Allergy, Unknown, 10/09/18) Subjective 10/25: pt was seen in ICU , more alert today, no acute events reported. plt 64, wbc 19, flow cytometry ordered, off heparin gtt 10/26: in icu still, per rn is off heparin gtt, currently symptoms are better, no fevers or chills noted, on pressor but less 10/27:plt 67, intubated on 1 pressor , but now follows commands, no events 10/28: Pt is intubated, non verbal, no events 10/29: seen by bedside,on vent, HD today, on pressors, abxs per ID, wbc 16, plt 94 Objective Last 24 Hour Vital Signs Date Time Temp Pulse Resp B/P (MAP) Pulse Ox O2 Delivery O2 Flow Rate FiO2 10/29/18 23:30 88 20 97/35 (55) 100 10/29/18 23:29 93 31 40 10/29/18 23:00 88 20 88/47 (61) 100 10/29/18 22:30 88 23 96/41 (59) 100 10/29/18 22:00 89 20 91/40 (57) 100 10/29/18 21:30 89 20 90/41 (57) 100 10/29/18 21:00 90 20 98/38 (58) 100 10/29/18 20:34 91 34 40 10/29/18 20:30 91 20 97/48 (64) 100 10/29/18 20:00 98.3 92 20 91/49 (63) 100 10/29/18 20:00 40 10/29/18 20:00 Mechanical Ventilator 10/29/18 19:35 90 10/29/18 19:30 91 20 93/39 (57) 99 10/29/18 19:21 91 34 40 40 10/29/18 19:00 95 20 100/65 (77) 100 10/29/18 18:30 99 20 104/70 (81) 100 10/29/18 18:00 98.8 101 20 105/72 (83) 100 10/29/18 17:30 99 20 104/70 (81) 100 10/29/18 17:00 97 32 40 10/29/18 17:00 100 20 102/68 (79) 100 10/29/18 16:52 95/48 10/29/18 16:30 105 20 106/70 (82) 100 10/29/18 16:00 Mechanical Ventilator 10/29/18 16:00 101 10/29/18 16:00 40 10/29/18 16:00 98 20 105/68 (80) 100 10/29/18 15:30 105 20 106/60 (75) 100 10/29/18 15:00 101 20 108/60 (76) 100 10/29/18 15:00 104 20 105/62 (76) 100 10/29/18 14:42 104 35 40 10/29/18 14:30 99 20 99/60 (73) 100 10/29/18 14:00 95 22 98/58 (71) 100 10/29/18 13:30 98 22 92/41 (58) 100 10/29/18 13:00 101 22 100/45 (63) 100 10/29/18 12:55 102 31 40 10/29/18 12:30 100 22 92/53 (66) 100 10/29/18 12:12 105/48 10/29/18 12:00 104 10/29/18 12:00 40 10/29/18 12:00 98.4 98 22 94/47 (63) 100 10/29/18 12:00 Mechanical Ventilator 10/29/18 11:40 108/56 10/29/18 11:30 100 22 95/44 (61) 100 10/29/18 11:00 105 22 106/48 (67) 100 10/29/18 10:42 104 34 40 10/29/18 10:30 80 22 104/50 (68) 100 10/29/18 10:00 85 22 108/48 (68) 100 10/29/18 09:30 84 22 110/50 (70) 100 10/29/18 09:00 88 20 105/45 (65) 100 10/29/18 08:55 40 10/29/18 08:50 100 10/29/18 08:50 92 34 40 10/29/18 08:30 85 20 101/40 (60) 100 10/29/18 08:00 89 10/29/18 08:00 40 10/29/18 08:00 88 20 100/43 (62) 100 10/29/18 08:00 Mechanical Ventilator 10/29/18 07:30 86 20 108/60 (76) 100 10/29/18 07:00 97.5 88 23 105/55 (72) 100 10/29/18 06:45 93 29 40 10/29/18 06:30 86 23 107/57 (74) 100 10/29/18 06:00 88 15 97/42 (60) 100 10/29/18 05:30 86 23 92/46 (61) 100 10/29/18 05:01 86 25 40 10/29/18 05:00 86 25 95/45 (62) 100 10/29/18 05:00 95/45 10/29/18 04:30 86 17 94/39 (57) 100 10/29/18 04:00 97.6 86 25 101/47 (65) 100 10/29/18 04:00 40 10/29/18 04:00 101/47 10/29/18 04:00 Mechanical Ventilator 10/29/18 03:30 86 18 102/35 (57) 100 10/29/18 03:09 87 10/29/18 03:00 86 21 100/79 (86) 100 10/29/18 03:00 100/79 10/29/18 02:50 87 26 40 10/29/18 02:30 86 18 88/56 (67) 100 10/29/18 02:00 88/56 10/29/18 02:00 86 20 102/33 (56) 100 10/29/18 01:30 86 24 102/41 (61) 100 10/29/18 01:00 86 13 101/34 (56) 100 10/29/18 01:00 101/34 10/29/18 00:45 86 29 40 10/29/18 00:30 86 20 101/47 (65) 100 10/29/18 00:00 40 10/29/18 00:00 98.2 87 25 101/46 (64) 100 10/29/18 00:00 101/46 10/29/18 00:00 Mechanical Ventilator Intake and Output 10/28/18 10/29/18 19:00 07:00 Intake Total 821.25 ml 1105.4 ml Output Total 50 ml 50 ml Balance 771.25 ml 1055.4 ml Free Water 100 ml IV Total 341.25 ml 525.4 ml Tube Feeding 480 ml 480 ml Output Urine Total 0 ml Stool Total 50 ml 50 ml Laboratory Tests 10/29/18 04:30: White Blood Count 16.7H, Red Blood Count 3.02L, Hemoglobin 8.3L, Hematocrit 26.3L, Mean Corpuscular Volume 87, Mean Corpuscular Hemoglobin 27.4, Mean Corpuscular Hemoglobin Concent 31.3L, Red Cell Distribution Width 24.5H, Platelet Count 94L, Mean Platelet Volume 8.6, Neutrophils (%) (Auto) , Lymphocytes (%) (Auto) , Monocytes (%) (Auto) , Eosinophils (%) (Auto) , Basophils (%) (Auto) , Differential Total Cells Counted 100, Neutrophils % ( Manual) 92H, Lymphocytes % (Manual) 2L, Monocytes % (Manual) 6, Eosinophils % ( Manual) 0, Basophils % (Manual) 0, Band Neutrophils 0, Platelet Estimate DecreasedL, Platelet Morphology Normal, Polychromasia 2+, Hypochromasia 1+, Anisocytosis 2+, Prothrombin Time 13.8H, Prothromb Time International Ratio 1.3H , Sodium Level 123L, Potassium Level 3.8, Chloride Level 88L, Carbon Dioxide Level 21, Anion Gap 15, Blood Urea Nitrogen 76H, Creatinine 4.4H, Estimat Glomerular Filtration Rate , Glucose Level 136H, Calcium Level 7.2L, Phosphorus Level 4.4, Total Bilirubin 4.1H, Direct Bilirubin 3.4H, Aspartate Amino Transf ( AST/SGOT) 138H, Alanine Aminotransferase (ALT/SGPT) 102H, Alkaline Phosphatase 261H, Total Protein 5.3L, Albumin 1.3L, Globulin 4.0, Albumin/Globulin Ratio 0.3L, Random Vancomycin Level 26.4 Height (Feet): 5 Height (Inches): 2.00 Weight (Pounds): 202 Objective PHYSICAL EXAMINATION: VITAL SIGNS: reviewed HEENT: Normocephalic and atraumatic. Mild scleral icterus. NECK: Supple. On vent CARDIOVASCULAR: Tachycardic. Regular rr, Plus S1, S2. There is a soft murmur at the left sternal border. LUNGS: ++ vent ABDOMEN: Distended, tympanic to percussion. Hypoactive bowel sounds. EXTREMITIES: No cyanosis, no clubbing, no edema. NEUROLOGIC: More alert Rah Ferreira MD Oct 29, 2018 23:41
--- NOTE | 2018-10-29 23:50 | NUR ---
NURSE NOTES: PATIENT ASLEEP STATUS, NO PAIN OR DISTRESS NOTED, WILL CONTINUE PLAN OF CARE.
--- NOTE | 2018-10-29 23:52 | Pulmonolgy Critical Care Note ---
Critical Care - Asmt/Plan Problems: (1) Respiratory failure, acute (2) Ventilator dependence (3) CHF (congestive heart failure) (4) CAD (coronary artery disease) (5) NSTEMI (non-ST elevated myocardial infarction) (6) Respiratory acidosis (7) Hemoptysis (8) Hypoglycemia (9) Pneumonia (10) Hypotension (11) Elevated d-dimer (12) Acute kidney injury superimposed on CKD Assessment & Plan: S/P initiation of HD (13) Hyponatremia (14) Sepsis Respiratory: monitor respiratory rate, adjust FIO2, weaning trial Cardiac: continue pressors, continue to monitor HR/BP, other - Start Midodrine 2.5 TID and ataper Renal: check electrolytes, other - HD per renal with UF as able Infectious Disease: continue antibiotics - per ID Gastrointestinal: continue feedings/current rate Endocrine: other - F/U ENDO recs Hematologic: monitor H/H, other - Monitor platelets Neurologic: keep patient comfortable Prophylaxis: Protonix, SCDs Disposition: keep in ICU Time Spent (Minutes): 30 Notes 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, 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, 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, ID, GI Discussed with: nurses, consultants, other - DNAR Critical Care - Objective Last 24 Hour Vital Signs Date Time Temp Pulse Resp B/P (MAP) Pulse Ox O2 Delivery O2 Flow Rate FiO2 10/29/18 23:30 88 20 97/35 (55) 100 10/29/18 23:29 93 31 40 10/29/18 23:00 88 20 88/47 (61) 100 10/29/18 23:00 88/47 10/29/18 22:30 88 23 96/41 (59) 100 10/29/18 22:00 89 20 91/40 (57) 100 10/29/18 22:00 91/40 10/29/18 21:30 89 20 90/41 (57) 100 10/29/18 21:00 98/38 10/29/18 21:00 90 20 98/38 (58) 100 10/29/18 20:34 91 34 40 10/29/18 20:30 91 20 97/48 (64) 100 10/29/18 20:00 98.3 92 20 91/49 (63) 100 10/29/18 20:00 40 10/29/18 20:00 91/49 10/29/18 20:00 Mechanical Ventilator 10/29/18 19:35 90 10/29/18 19:30 91 20 93/39 (57) 99 10/29/18 19:21 91 34 40 40 10/29/18 19:00 95 20 100/65 (77) 100 10/29/18 19:00 90/37 10/29/18 18:30 99 20 104/70 (81) 100 10/29/18 18:00 98.8 101 20 105/72 (83) 100 10/29/18 17:30 99 20 104/70 (81) 100 10/29/18 17:00 97 32 40 10/29/18 17:00 100 20 102/68 (79) 100 10/29/18 16:52 95/48 10/29/18 16:30 105 20 106/70 (82) 100 10/29/18 16:00 Mechanical Ventilator 10/29/18 16:00 101 10/29/18 16:00 40 10/29/18 16:00 98 20 105/68 (80) 100 10/29/18 15:30 105 20 106/60 (75) 100 10/29/18 15:00 101 20 108/60 (76) 100 10/29/18 15:00 104 20 105/62 (76) 100 10/29/18 14:42 104 35 40 10/29/18 14:30 99 20 99/60 (73) 100 10/29/18 14:00 95 22 98/58 (71) 100 10/29/18 13:30 98 22 92/41 (58) 100 10/29/18 13:00 101 22 100/45 (63) 100 10/29/18 12:55 102 31 40 10/29/18 12:30 100 22 92/53 (66) 100 10/29/18 12:12 105/48 10/29/18 12:00 104 10/29/18 12:00 40 10/29/18 12:00 98.4 98 22 94/47 (63) 100 10/29/18 12:00 Mechanical Ventilator 10/29/18 11:40 108/56 10/29/18 11:30 100 22 95/44 (61) 100 10/29/18 11:00 105 22 106/48 (67) 100 10/29/18 10:42 104 34 40 2/22/19 10:30 80 22 104/50 (68) 100 10/29/18 10:00 85 22 108/48 (68) 100 10/29/18 09:30 84 22 110/50 (70) 100 10/29/18 09:00 88 20 105/45 (65) 100 10/29/18 08:55 40 10/29/18 08:50 100 10/29/18 08:50 92 34 40 10/29/18 08:30 85 20 101/40 (60) 100 10/29/18 08:00 89 10/29/18 08:00 40 10/29/18 08:00 88 20 100/43 (62) 100 10/29/18 08:00 Mechanical Ventilator 10/29/18 07:30 86 20 108/60 (76) 100 10/29/18 07:00 97.5 88 23 105/55 (72) 100 10/29/18 06:45 93 29 40 10/29/18 06:30 86 23 107/57 (74) 100 10/29/18 06:00 88 15 97/42 (60) 100 10/29/18 05:30 86 23 92/46 (61) 100 10/29/18 05:01 86 25 40 10/29/18 05:00 86 25 95/45 (62) 100 10/29/18 05:00 95/45 10/29/18 04:30 86 17 94/39 (57) 100 10/29/18 04:00 97.6 86 25 101/47 (65) 100 10/29/18 04:00 40 10/29/18 04:00 101/47 10/29/18 04:00 Mechanical Ventilator 10/29/18 03:30 86 18 102/35 (57) 100 10/29/18 03:09 87 10/29/18 03:00 86 21 100/79 (86) 100 10/29/18 03:00 100/79 10/29/18 02:50 87 26 40 10/29/18 02:30 86 18 88/56 (67) 100 10/29/18 02:00 88/56 10/29/18 02:00 86 20 102/33 (56) 100 10/29/18 01:30 86 24 102/41 (61) 100 10/29/18 01:00 86 13 101/34 (56) 100 10/29/18 01:00 101/34 10/29/18 00:45 86 29 40 10/29/18 00:30 86 20 101/47 (65) 100 10/29/18 00:00 40 10/29/18 00:00 98.2 87 25 101/46 (64) 100 10/29/18 00:00 101/46 10/29/18 00:00 Mechanical Ventilator Status: awake, other - on vent Condition: critical HEENT: atraumatic, normocephalic Lungs: rales Heart: HR/BP unstable Abdomen: soft, non-tender, active bowel sounds Extremities: no C/C/E Accucheck: 172 Blood Sugars: BS controlled Critical Care - Subjective ROS Limited/Unobtainable: Yes ICU Day: 12 Intubation Day: 11 Interval Events: CT noted with edema and anasarca + hydrop Awake on vent thick secreitons Condition: critical IV Access: PICC, central EKG Rhythm: Sinus Rhythm FI02: 40 Vent Support Breath Rate: 20 Vent Support Mode: AC Vent Tidal Volume: 500 Sputum Amount: Moderate PEEP: 5.0 PIP: 35 Drips: NE Tube Feeding Amount: 40 I&O: Intake and Output 10/28/18 10/29/18 19:00 07:00 Intake Total 821.25 ml 1105.4 ml Output Total 50 ml 50 ml Balance 771.25 ml 1055.4 ml Free Water 100 ml IV Total 341.25 ml 525.4 ml Tube Feeding 480 ml 480 ml Output Urine Total 0 ml Stool Total 50 ml 50 ml Subjective: ZACHARY ET-Tube: 7.5 ET Position: 23 Labs: Laboratory Tests Test 10/29/18 04:30 White Blood Count 16.7 K/UL (4.8-10.8) H Red Blood Count 3.02 M/UL (4.70-6.10) L Hemoglobin 8.3 G/DL (14.2-18.0) L Hematocrit 26.3 % (42.0-52.0) L Mean Corpuscular Volume 87 FL (80-99) Mean Corpuscular Hemoglobin 27.4 PG (27.0-31.0) Mean Corpuscular Hemoglobin Concent 31.3 G/DL (32.0-36.0) L Red Cell Distribution Width 24.5 % (11.6-14.8) H Platelet Count 94 K/UL (150-450) L Mean Platelet Volume 8.6 FL (6.5-10.1) Neutrophils (%) (Auto) % (45.0-75.0) Lymphocytes (%) (Auto) % (20.0-45.0) Monocytes (%) (Auto) % (1.0-10.0) Eosinophils (%) (Auto) % (0.0-3.0) Basophils (%) (Auto) % (0.0-2.0) Differential Total Cells Counted 100 Neutrophils % (Manual) 92 % (45-75) H Lymphocytes % (Manual) 2 % (20-45) L Monocytes % (Manual) 6 % (1-10) Eosinophils % (Manual) 0 % (0-3) Basophils % (Manual) 0 % (0-2) Band Neutrophils 0 % (0-8) Platelet Estimate Decreased L Platelet Morphology Normal Polychromasia 2+ Hypochromasia 1+ Anisocytosis 2+ Prothrombin Time 13.8 SEC (9.30-11.50) H Prothromb Time International Ratio 1.3 (0.9-1.1) H Sodium Level 123 MMOL/L (136-145) L Potassium Level 3.8 MMOL/L (3.5-5.1) Chloride Level 88 MMOL/L (98-107) L Carbon Dioxide Level 21 MMOL/L (21-32) Anion Gap 15 mmol/L (5-15) Blood Urea Nitrogen 76 mg/dL (7-18) H Creatinine 4.4 MG/DL (0.55-1.30) H Estimat Glomerular Filtration Rate mL/min (>60) Glucose Level 136 MG/DL (74-106) H Calcium Level 7.2 MG/DL (8.5-10.1) L Phosphorus Level 4.4 MG/DL (2.5-4.9) Total Bilirubin 4.1 MG/DL (0.2-1.0) H Direct Bilirubin 3.4 MG/DL (0.0-0.3) H Aspartate Amino Transf (AST/SGOT) 138 U/L (15-37) H Alanine Aminotransferase (ALT/SGPT) 102 U/L (12-78) H Alkaline Phosphatase 261 U/L (46-116) H Total Protein 5.3 G/DL (6.4-8.2) L Albumin 1.3 G/DL (3.4-5.0) L Globulin 4.0 g/dL Albumin/Globulin Ratio 0.3 (1.0-2.7) L Random Vancomycin Level 26.4 ug/mL Chidi Bourne MD Oct 29, 2018 23:51
[2018-10-30] VITALS (49 sets, daily range): BP systolic 59–127; BP diastolic 30–91
[2018-10-30] MEDS: NovoLOG Insulin Flexpen SUBQ SCH ×5 (00:54→23:31)
--- NOTE | 2018-10-30 01:15 | NUR ---
NURSE NOTES: ALL EXTREMITIES WEEPING A LOT, CHANGED PICC LINE DRESSING, WILL CONTINUE TO MONITOR.
--- NOTE | 2018-10-30 02:53 | NUR ---
NURSE NOTES: ONGOING LEVOPHED 15MCG/MIN VIA PICC LINE, NO ACUTE DISTRESS NOTED AT THIS TIME.
--- NOTE | 2018-10-30 05:00 | NUR ---
NURSE NOTES: MORNING CARE WAS DONE, PATIENT AWOKE, COOPERATIVE WHILE CARE, DENIED PAIN AT THIS TIME, WILL CONTINUE TO MONITOR.
[2018-10-30 07:01] LABS: HEMATOCRIT 27.3 % (42.0-52.0); HEMOGLOBIN 8.4 G/DL (14.2-18.0); MEAN CORPUSCULAR VOLUME 88 FL (80-99); PLATELET COUNT 65 K/UL (150-450); RED CELL DISTRIBUTION WIDTH 24.9 % (11.6-14.8); WHITE BLOOD COUNT 15.1 K/UL (4.8-10.8)
--- NOTE | 2018-10-30 07:22 | NUR ---
NURSE NOTES: RECEIVED REPORT FROM [facility]. PATIENT OPEN EYES, FLAT EFFECT, NO C/O PAIN. FOLLOWS SIMPLE COMMANDS, RT SCLERA RED AND DRY. PUPILS 3MM SLUGGISH. HR 94, BP 105/43, RR 14, ON ETT TO VENT AC 20, TV 500, FIO2 40%,PEEP5, O2 SATURATION 100%. SECRETIONS THICK REY TO SANGUINOUS IN COLOR. PT RESISTANT TO ORAL CARE. OGT PATENT, RUNNING NEPRO AT 40ML/HR, NO RESIDUE NOTED, ABDOMEN LARGE, ROUND, GENERALIZED PITTING AND WEEPING EDEMA, NON PITTING EDEMA OF SCROTAL AREA. SEE SKIN ASSESSMENT. RECTAL TUBE PATENT, GREENISH BROWN COLOR STOOL NOTED. HYPOACTIVE BOWEL SOUNDS. PICC LINE TO LEFT UPPER ARM, INTACT AND PATENT, RUNNING LEVOPHED 18MCG/HR. RT IJ ABILIO CATH W/ PIGTAIL. P200 MATTRESS, MADE LOWER BED POSITION, PROVIDED CALL LIGHT WITHIN REACH, WILL CONTINUE TO MONITOR.
--- NOTE | 2018-10-30 07:26 | NUR ---
HAND-OFF: Report given to JACQUI KOCH.
--- NOTE | 2018-10-30 07:38 | General Progress Note ---
Assessment/Plan Problem List: (1) CKD (chronic kidney disease) ICD Codes: N18.9 - Chronic kidney disease, unspecified SNOMED: 738196417 (2) Hypoglycemia ICD Codes: E16.2 - Hypoglycemia, unspecified SNOMED: 544472542 (3) Altered mental status ICD Codes: R41.82 - Altered mental status, unspecified SNOMED: 316846569 (4) Ventilator dependence ICD Codes: Z99.11 - Dependence on respirator [ventilator] status SNOMED: 446991872 (5) Hyponatremia ICD Codes: E87.1 - Hypo-osmolality and hyponatremia SNOMED: 13567530 Assessment/Plan glucose values are stable change glucose monitoring to every 6 hours - low dose Novolog coverage hypoglycemia protocol in order Subjective ROS Limited/Unobtainable: Yes Allergies: Coded Allergies: PENICILLINS (Verified Allergy, Unknown, 10/09/18) Subjective events noted glucose values are stable Item Value Date Time Bedside Blood Glucose 124 mg/dl H 10/30/18 0445 Bedside Blood Glucose 162 mg/dl H 10/30/18 0055 Bedside Blood Glucose 172 mg/dl H 10/29/18 2057 Bedside Blood Glucose 170 mg/dl H 10/29/18 1700 Bedside Blood Glucose 110 mg/dl 10/29/18 1300 Bedside Blood Glucose 149 mg/dl H 10/29/18 1039 Bedside Blood Glucose 141 mg/dl H 10/29/18 0438 Objective Last 24 Hour Vital Signs Date Time Temp Pulse Resp B/P (MAP) Pulse Ox O2 Delivery O2 Flow Rate FiO2 10/30/18 06:45 93 32 40 10/30/18 06:30 91 20 105/47 (66) 100 10/30/18 06:00 90 20 92/57 (69) 100 10/30/18 06:00 92/57 10/30/18 05:45 91 20 77/31 (46) 100 10/30/18 05:45 77/33 10/30/18 05:30 92 20 100/43 (62) 100 10/30/18 05:15 91 27 40 10/30/18 05:00 97/42 10/30/18 05:00 90 20 97/42 (60) 100 10/30/18 04:30 91 18 91/43 (59) 100 10/30/18 04:00 Mechanical Ventilator 10/30/18 04:00 40 10/30/18 04:00 99/43 10/30/18 04:00 97.6 92 22 99/43 (61) 100 10/30/18 03:30 91 20 99/49 (66) 100 10/30/18 03:24 93 24 40 10/30/18 03:04 91 10/30/18 03:00 92 20 99/47 (64) 100 10/30/18 03:00 99/47 10/30/18 02:30 91 20 95/45 (62) 100 10/30/18 02:00 92 13 101/40 (60) 100 10/30/18 02:00 95/41 10/30/18 01:30 93 20 98/38 (58) 100 10/30/18 01:29 94 29 40 10/30/18 01:00 98/48 10/30/18 01:00 92 20 98/48 (65) 100 10/30/18 00:30 94 20 103/44 (63) 100 10/30/18 00:30 103/44 10/30/18 00:00 97.9 91 13 59/32 (41) 100 10/30/18 00:00 91 10/30/18 00:00 59/32 10/30/18 00:00 Mechanical Ventilator 10/30/18 00:00 40 10/29/18 23:30 88 20 97/35 (55) 100 10/29/18 23:29 93 31 40 10/29/18 23:00 88 20 88/47 (61) 100 10/29/18 23:00 88/47 10/29/18 22:30 88 23 96/41 (59) 100 10/29/18 22:00 89 20 91/40 (57) 100 10/29/18 22:00 91/40 10/29/18 21:30 89 20 90/41 (57) 100 10/29/18 21:00 98/38 10/29/18 21:00 90 20 98/38 (58) 100 10/29/18 20:34 91 34 40 10/29/18 20:30 91 20 97/48 (64) 100 10/29/18 20:00 98.3 92 20 91/49 (63) 100 10/29/18 20:00 40 10/29/18 20:00 91/49 10/29/18 20:00 Mechanical Ventilator 10/29/18 19:35 90 10/29/18 19:30 91 20 93/39 (57) 99 10/29/18 19:21 91 34 40 40 10/29/18 19:00 95 20 100/65 (77) 100 10/29/18 19:00 90/37 10/29/18 18:30 99 20 104/70 (81) 100 10/29/18 18:00 98.8 101 20 105/72 (83) 100 10/29/18 17:30 99 20 104/70 (81) 100 10/29/18 17:00 97 32 40 10/29/18 17:00 100 20 102/68 (79) 100 10/29/18 16:52 95/48 10/29/18 16:30 105 20 106/70 (82) 100 10/29/18 16:00 Mechanical Ventilator 10/29/18 16:00 101 10/29/18 16:00 40 10/29/18 16:00 98 20 105/68 (80) 100 10/29/18 15:30 105 20 106/60 (75) 100 10/29/18 15:00 101 20 108/60 (76) 100 10/29/18 15:00 104 20 105/62 (76) 100 10/29/18 14:42 104 35 40 10/29/18 14:30 99 20 99/60 (73) 100 10/29/18 14:00 95 22 98/58 (71) 100 10/29/18 13:30 98 22 92/41 (58) 100 10/29/18 13:00 101 22 100/45 (63) 100 10/29/18 12:55 102 31 40 10/29/18 12:30 100 22 92/53 (66) 100 10/29/18 12:12 105/48 10/29/18 12:00 104 10/29/18 12:00 40 10/29/18 12:00 98.4 98 22 94/47 (63) 100 10/29/18 12:00 Mechanical Ventilator 10/29/18 11:40 108/56 10/29/18 11:30 100 22 95/44 (61) 100 10/29/18 11:00 105 22 106/48 (67) 100 10/29/18 10:42 104 34 40 10/29/18 10:30 80 22 104/50 (68) 100 10/29/18 10:00 85 22 108/48 (68) 100 10/29/18 09:30 84 22 110/50 (70) 100 10/29/18 09:00 88 20 105/45 (65) 100 10/29/18 08:55 40 10/29/18 08:50 100 10/29/18 08:50 92 34 40 10/29/18 08:30 85 20 101/40 (60) 100 10/29/18 08:00 89 10/29/18 08:00 40 10/29/18 08:00 88 20 100/43 (62) 100 10/29/18 08:00 Mechanical Ventilator Intake and Output 10/29/18 10/30/18 18:59 06:59 Intake Total 510 ml 1082.60 ml Output Total 100 ml 300 ml Balance 410 ml 782.60 ml Free Water 100 ml IV Total 30 ml 502.60 ml Tube Feeding 480 ml 480 ml Stool Total 100 ml 300 ml Laboratory Tests 10/30/18 05:30: White Blood Count 15.1H, Red Blood Count 3.10L, Hemoglobin 8.4L, Hematocrit 27.3L, Mean Corpuscular Volume 88, Mean Corpuscular Hemoglobin 27.2, Mean Corpuscular Hemoglobin Concent 30.9L, Red Cell Distribution Width 24.9H, Platelet Count 65L, Mean Platelet Volume 8.5, Neutrophils (%) (Auto) , Lymphocytes (%) (Auto) , Monocytes (%) (Auto) , Eosinophils (%) (Auto) , Basophils (%) (Auto) , Neutrophils % (Manual) [Pending], Lymphocytes % (Manual) [Pending], Platelet Estimate [Pending], Platelet Morphology [Pending], Sodium Level [Pending], Potassium Level [Pending], Chloride Level [Pending], Carbon Dioxide Level [Pending], Blood Urea Nitrogen [Pending], Creatinine [Pending], Estimat Glomerular Filtration Rate [Pending], Glucose Level [Pending], Calcium Level [Pending], Total Bilirubin [Pending], Aspartate Amino Transf (AST/SGOT) [ Pending], Alanine Aminotransferase (ALT/SGPT) [Pending], Alkaline Phosphatase [ Pending], Total Protein [Pending], Albumin [Pending], Globulin [Pending], Random Vancomycin Level [Pending] Height (Feet): 5 Height (Inches): 2.00 Weight (Pounds): 202 General Appearance: severe distress Neck: normal alignment Cardiovascular: tachycardia Respiratory/Chest: decreased breath sounds Abdomen: normal bowel sounds Objective Current Medications Medications (Trade) Dose Ordered Sig/Ashely Route PRN Reason Start Time Stop Time Status Last Admin Dose Admin Aspirin (Ecotrin) 81 mg DAILY ORAL 10/19/18 09:00 11/09/18 08:59 10/29/18 10:38 Barium Sulfate (Readi-Cat 2) 450 ml NOW PRN ORAL Radiology Procedure 10/28/18 12:15 10/30/18 12:07 Calcium Carbonate (Tums) 500 mg BID GT 10/20/18 18:00 11/09/18 08:59 10/29/18 18:00 Chlorhexidine Gluconate (Anai-Hex 2%) 1 applic DAILY@2000 TOPIC 10/18/18 20:00 11/12/18 19:59 10/29/18 19:43 Dextrose (Dextrose 50%) 25 ml Q30M PRN IV Hypoglycemia 10/23/18 08:15 11/22/18 08:14 Dextrose (Dextrose 50%) 50 ml Q30M PRN IV Hypoglycemia 10/23/18 08:15 11/22/18 08:14 Dobutamine HCl 250 ml @ 10.05 mls/ hr Q24H IV 10/19/18 11:40 11/18/18 11:39 10/22/18 12:43 Dopamine HCl/ Dextrose 250 ml @ 0 mls/hr Q24H IV 10/19/18 12:45 11/18/18 12:44 10/20/18 17:43 Fluconazole/ Sodium Chloride 100 ml @ 100 mls/hr Q24H IV 10/28/18 20:00 11/04/18 19:59 10/29/18 19:43 Haloperidol Lactate (Haldol) 5 mg Q6H PRN IM Agitation 10/18/18 17:00 11/17/18 16:59 Insulin Aspart (NovoLOG) EVERY 4 HOURS SUBQ 10/23/18 09:00 11/22/18 08:59 10/30/18 04:44 Latanoprost (Xalatan) 1 drop BEDTIME BOTH EYES 10/18/18 21:00 11/10/18 20:59 10/29/18 20:56 Loperamide HCl (Imodium) 2 mg Q4H PRN ORAL Diarrhea 10/27/18 09:45 11/26/18 09:44 Meropenem 500 mg/ Sodium Chloride 50 ml @ 100 mls/hr Q24HRS IVPB 10/29/18 00:00 11/03/18 00:00 10/29/18 23:51 Midodrine (Pro-Amatine) 2.5 mg THREE TIMES A DAY ORAL 10/30/18 09:00 11/29/18 08:59 Norepinephrine Bitartrate 16 mg/ Dextrose 500 ml @ 0 mls/hr Q24H IV 10/20/18 18:00 11/19/18 17:59 10/29/18 16:52 Ondansetron HCl (Zofran) 4 mg Q8H PRN IVP Nausea & Vomiting 10/18/18 17:00 11/17/18 16:59 Promethazine HCl (Phenergan Plain) 6.25 mg Q6H PRN ORAL For Cough 10/18/18 16:45 11/10/18 04:32 Vancomycin HCl (Vanco rx to dose) 1 ea DAILY PRN MISC Per rx protocol 10/19/18 23:30 11/18/18 23:29 Vasopressin 100 units/Sodium Chloride 100 ml @ 2.4 mls/hr Q24H IV 10/22/18 15:00 11/21/18 14:59 10/25/18 15:13 Barry Schmitt MD Oct 30, 2018 07:38
[2018-10-30 07:52] LABS: ALANINE AMINOTRANSFERASE 84 U/L (12-78); ALBUMIN 1.3 G/DL (3.4-5.0); ALBUMIN/GLOBULIN RATIO 0.3 (1.0-2.7); ALKALINE PHOSPHATASE 248 U/L (46-116); ANION GAP 11 mmol/L (5-15); ASPARTATE AMINO TRANSFERASE 119 U/L (15-37); BILIRUBIN,TOTAL 3.7 MG/DL (0.2-1.0); BLOOD UREA NITROGEN 66 mg/dL (7-18); CALCIUM 8.6 MG/DL (8.5-10.1); CARBON DIOXIDE 24 MMOL/L (21-32); CHLORIDE 93 MMOL/L (98-107); CREATININE 3.8 MG/DL (0.55-1.30); POTASSIUM 3.9 MMOL/L (3.5-5.1); SODIUM 128 MMOL/L (136-145)
[2018-10-30 07:53] LABS: BILIRUBIN,DIRECT 3.1 MG/DL (0.0-0.3)
[2018-10-30] MEDS: Norepinephrine Bitartrate 16 MG in D5W 500ml 484 ML IV SCH (08:25)
[2018-10-30] MEDS: Aspirin EC 81mg tab ORAL SCH (08:26)
[2018-10-30] MEDS: Tums 500mg GT SCH ×2 (08:27→17:42)
--- NOTE | 2018-10-30 08:39 | Nephrology Progress Note ---
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 Continue to monitor and HD likely manisha or Thursday 2) CHF - Moderate to severe mitral regurgitation. Tricuspid systolic velocities suggests peak right ventricular systolic pressure of 54 mmHg,consistent with moderate pulmonary hypertension . EF 35%, however severe MR thus anticipate EF % much lower - per cardiology 3) Resp FL- intubated on vent 4) Hyponatremia- Na 128. Monitor, UF with HD Subjective Date patient seen: Oct 30, 2018 Time patient seen: 08:36 ROS Limited/Unobtainable: Yes Allergies: Coded Allergies: PENICILLINS (Verified Allergy, Unknown, 10/09/18) Subjective Patient intubated on vent Objective Last 24 Hour Vital Signs Date Time Temp Pulse Resp B/P (MAP) Pulse Ox O2 Delivery O2 Flow Rate FiO2 10/30/18 08:25 106/53 10/30/18 06:45 93 32 40 10/30/18 06:30 91 20 105/47 (66) 100 10/30/18 06:00 90 20 92/57 (69) 100 10/30/18 06:00 92/57 10/30/18 05:45 91 20 77/31 (46) 100 10/30/18 05:45 77/33 10/30/18 05:30 92 20 100/43 (62) 100 10/30/18 05:15 91 27 40 10/30/18 05:00 97/42 10/30/18 05:00 90 20 97/42 (60) 100 10/30/18 04:30 91 18 91/43 (59) 100 10/30/18 04:00 Mechanical Ventilator 10/30/18 04:00 40 10/30/18 04:00 99/43 10/30/18 04:00 97.6 92 22 99/43 (61) 100 10/30/18 03:30 91 20 99/49 (66) 100 10/30/18 03:24 93 24 40 10/30/18 03:04 91 10/30/18 03:00 92 20 99/47 (64) 100 10/30/18 03:00 99/47 10/30/18 02:30 91 20 95/45 (62) 100 10/30/18 02:00 92 13 101/40 (60) 100 10/30/18 02:00 95/41 10/30/18 01:30 93 20 98/38 (58) 100 10/30/18 01:29 94 29 40 10/30/18 01:00 98/48 10/30/18 01:00 92 20 98/48 (65) 100 10/30/18 00:30 94 20 103/44 (63) 100 10/30/18 00:30 103/44 10/30/18 00:00 97.9 91 13 59/32 (41) 100 10/30/18 00:00 91 10/30/18 00:00 59/32 10/30/18 00:00 Mechanical Ventilator 10/30/18 00:00 40 10/29/18 23:30 88 20 97/35 (55) 100 10/29/18 23:29 93 31 40 10/29/18 23:00 88 20 88/47 (61) 100 10/29/18 23:00 88/47 10/29/18 22:30 88 23 96/41 (59) 100 10/29/18 22:00 89 20 91/40 (57) 100 10/29/18 22:00 91/40 10/29/18 21:30 89 20 90/41 (57) 100 10/29/18 21:00 98/38 10/29/18 21:00 90 20 98/38 (58) 100 10/29/18 20:34 91 34 40 10/29/18 20:30 91 20 97/48 (64) 100 10/29/18 20:00 98.3 92 20 91/49 (63) 100 10/29/18 20:00 40 10/29/18 20:00 91/49 10/29/18 20:00 Mechanical Ventilator 10/29/18 19:35 90 10/29/18 19:30 91 20 93/39 (57) 99 10/29/18 19:21 91 34 40 40 10/29/18 19:00 95 20 100/65 (77) 100 10/29/18 19:00 90/37 10/29/18 18:30 99 20 104/70 (81) 100 10/29/18 18:00 98.8 101 20 105/72 (83) 100 10/29/18 17:30 99 20 104/70 (81) 100 10/29/18 17:00 97 32 40 10/29/18 17:00 100 20 102/68 (79) 100 10/29/18 16:52 95/48 10/29/18 16:30 105 20 106/70 (82) 100 10/29/18 16:00 Mechanical Ventilator 10/29/18 16:00 101 10/29/18 16:00 40 10/29/18 16:00 98 20 105/68 (80) 100 10/29/18 15:30 105 20 106/60 (75) 100 10/29/18 15:00 101 20 108/60 (76) 100 10/29/18 15:00 104 20 105/62 (76) 100 10/29/18 14:42 104 35 40 10/29/18 14:30 99 20 99/60 (73) 100 10/29/18 14:00 95 22 98/58 (71) 100 10/29/18 13:30 98 22 92/41 (58) 100 10/29/18 13:00 101 22 100/45 (63) 100 10/29/18 12:55 102 31 40 10/29/18 12:30 100 22 92/53 (66) 100 10/29/18 12:12 105/48 10/29/18 12:00 104 10/29/18 12:00 40 10/29/18 12:00 98.4 98 22 94/47 (63) 100 10/29/18 12:00 Mechanical Ventilator 10/29/18 11:40 108/56 10/29/18 11:30 100 22 95/44 (61) 100 10/29/18 11:00 105 22 106/48 (67) 100 10/29/18 10:42 104 34 40 10/29/18 10:30 80 22 104/50 (68) 100 10/29/18 10:00 85 22 108/48 (68) 100 10/29/18 09:30 84 22 110/50 (70) 100 10/29/18 09:00 88 20 105/45 (65) 100 10/29/18 08:55 40 10/29/18 08:50 100 10/29/18 08:50 92 34 40 Intake and Output 10/29/18 10/30/18 18:59 06:59 Intake Total 510 ml 1082.60 ml Output Total 100 ml 300 ml Balance 410 ml 782.60 ml Free Water 100 ml IV Total 30 ml 502.60 ml Tube Feeding 480 ml 480 ml Stool Total 100 ml 300 ml Laboratory Tests 10/30/18 05:30: White Blood Count 15.1H, Red Blood Count 3.10L, Hemoglobin 8.4L, Hematocrit 27.3L, Mean Corpuscular Volume 88, Mean Corpuscular Hemoglobin 27.2, Mean Corpuscular Hemoglobin Concent 30.9L, Red Cell Distribution Width 24.9H, Platelet Count 65L, Mean Platelet Volume 8.5, Neutrophils (%) (Auto) , Lymphocytes (%) (Auto) , Monocytes (%) (Auto) , Eosinophils (%) (Auto) , Basophils (%) (Auto) , Neutrophils % (Manual) [Pending], Lymphocytes % (Manual) [Pending], Platelet Estimate [Pending], Platelet Morphology [Pending], Sodium Level 128L, Potassium Level 3.9, Chloride Level 93L, Carbon Dioxide Level 24, Anion Gap 11, Blood Urea Nitrogen 66H, Creatinine 3.8H, Estimat Glomerular Filtration Rate , Glucose Level 123H, Calcium Level 8.6, Total Bilirubin 3.7H, Direct Bilirubin 3.1H, Aspartate Amino Transf (AST/SGOT) 119H, Alanine Aminotransferase (ALT/SGPT) 84H, Alkaline Phosphatase 248H, Total Protein 5.6L, Albumin 1.3L, Globulin 4.3, Albumin/Globulin Ratio 0.3L, Random Vancomycin Level 20.3 Height (Feet): 5 Height (Inches): 2.00 Weight (Pounds): 202 General Appearance: no apparent distress, alert EENT: normal ENT inspection Neck: normal alignment, supple Cardiovascular: normal rate, regular rhythm Respiratory/Chest: rhonchi - bilaterally Abdomen: non tender, soft Edema: 2+ Arm (L), 2+ Arm (R), 2+ Leg (L), 2+ Leg (R), 2+ Pedal (L), 2+ Pedal ( R), 2+ Generalized Aric Rodriguez MD Oct 30, 2018 08:39
--- NOTE | 2018-10-30 09:07 | NUR ---
RD ASSESSMENT & RECOMMENDATIONS SEE CARE ACTIVITY FOR COMPLETE ASSESSMENT DAILY ESTIMATED NEEDS: Needs based on DM, CHF, renal dysfunction w/ HD, critical care/ 64.5kg 25-30 kcals/kg 0490-8694 total kcals with HD: 1.25-2 g protein/kg with HD: 81-129 g total protein Fluid per MD, now on HD NUTRITION DIAGNOSIS: 1) Altered nutrition related lab values R/T DM w/ hypoglycemia, CHF, renal dysfunction as evidenced by critically low hypoglycemic episodes, now improved (POC 110-172, now higher), elev BNP (02230, not updated), elev BUN/ creat (66/3.8), low Na (128 improving), low K (3.4-> wnl). 2) Swallowing difficulty r/t respiratory distress as evidenced by pt now s/p oral intubation, on OGT feeds, on pressor support, ICU status. 3) Increased kcal and protein needs r/t renal dysfunction and wound healing as evidenced by pt now on HD, and w/ partial thickness R gluteal cleft wound. CURRENT TF:NEPRO @40ml + PS x1 PO DIET RECOMMENDATIONS: [employer] eval upon extubation ENTERAL NUTRITION RECOMMENDATIONS: WHEN STABLE: NEPRO @40ml/hr x24 hrs + Prosource 1 pack daily to provide 960ml, 1728 kcal, 78g + 11g prot, 698ml free H2O - FEED W/ HEMODYNAMIC STABILITY - HOB over 30 degrees - Consider decrease water flushes: low Na, edematous ------ REC TROPHIC FEEDS OF 10ML/HR TO MAINTAIN GUT INTEGRITY IF PT NOT HEMODYNAMICALLY STABLE FOR FEEDS AT GOAL ADDITIONAL RECOMMENDATIONS: * Calibrated bedscale wt, daily wts per policy (CHF dx) -> now w/ added P200 mattress + pump (est 25#) * Monitor lytes closely, replete as needed * WOUND CARE: add DAPHNE BID * TF recs as above when hemodynamically stable for feeds -> (10/30) Pt on Levo @ 18mcg, rec trophic feeds of 10ml/hr at this time * Rec to decrease H2O flushes: hyponatremia, weeping edema
--- NOTE | 2018-10-30 09:22 | NUR ---
RESPIRATORY NOTE: Weaning attempted with CPAP PS 12 but pt does not tolerate. Pt was instructed to take deep breaths but Inspiratory effort was insufficient with volumes <100ml. Will continue to monitor.
--- NOTE | 2018-10-30 09:38 | Urology Progress Note ---
Assessment/Plan Assessment/Plan 1. Renal failure, which is acute on chronic. 2. Right-sided hydronephrosis. 3. Renal cyst. 4. Scrotal edema. 5. History of prostate cancer, status post radical prostatectomy. monitor renal fxn consider right ureteral stent or nephrostomy scrotal elevation consider cooper cath abx as ordered Subjective Allergies: Coded Allergies: PENICILLINS (Verified Allergy, Unknown, 10/09/18) Subjective vent, non-verbal Objective Last 24 Hour Vital Signs Date Time Temp Pulse Resp B/P (MAP) Pulse Ox O2 Delivery O2 Flow Rate FiO2 10/30/18 09:20 100 10/30/18 09:20 95 33 40 10/30/18 08:25 106/53 10/30/18 06:45 93 32 40 10/30/18 06:30 91 20 105/47 (66) 100 10/30/18 06:00 90 20 92/57 (69) 100 10/30/18 06:00 92/57 10/30/18 05:45 91 20 77/31 (46) 100 10/30/18 05:45 77/33 10/30/18 05:30 92 20 100/43 (62) 100 10/30/18 05:15 91 27 40 10/30/18 05:00 97/42 10/30/18 05:00 90 20 97/42 (60) 100 10/30/18 04:30 91 18 91/43 (59) 100 10/30/18 04:00 Mechanical Ventilator 10/30/18 04:00 40 10/30/18 04:00 99/43 10/30/18 04:00 97.6 92 22 99/43 (61) 100 10/30/18 03:30 91 20 99/49 (66) 100 10/30/18 03:24 93 24 40 10/30/18 03:04 91 10/30/18 03:00 92 20 99/47 (64) 100 10/30/18 03:00 99/47 10/30/18 02:30 91 20 95/45 (62) 100 10/30/18 02:00 92 13 101/40 (60) 100 10/30/18 02:00 95/41 10/30/18 01:30 93 20 98/38 (58) 100 10/30/18 01:29 94 29 40 10/30/18 01:00 98/48 10/30/18 01:00 92 20 98/48 (65) 100 10/30/18 00:30 94 20 103/44 (63) 100 10/30/18 00:30 103/44 10/30/18 00:00 97.9 91 13 59/32 (41) 100 10/30/18 00:00 91 10/30/18 00:00 59/32 10/30/18 00:00 Mechanical Ventilator 10/30/18 00:00 40 10/29/18 23:30 88 20 97/35 (55) 100 10/29/18 23:29 93 31 40 10/29/18 23:00 88 20 88/47 (61) 100 10/29/18 23:00 88/47 10/29/18 22:30 88 23 96/41 (59) 100 10/29/18 22:00 89 20 91/40 (57) 100 10/29/18 22:00 91/40 10/29/18 21:30 89 20 90/41 (57) 100 10/29/18 21:00 98/38 10/29/18 21:00 90 20 98/38 (58) 100 10/29/18 20:34 91 34 40 10/29/18 20:30 91 20 97/48 (64) 100 10/29/18 20:00 98.3 92 20 91/49 (63) 100 10/29/18 20:00 40 10/29/18 20:00 91/49 10/29/18 20:00 Mechanical Ventilator 10/29/18 19:35 90 10/29/18 19:30 91 20 93/39 (57) 99 10/29/18 19:21 91 34 40 40 10/29/18 19:00 95 20 100/65 (77) 100 10/29/18 19:00 90/37 10/29/18 18:30 99 20 104/70 (81) 100 10/29/18 18:00 98.8 101 20 105/72 (83) 100 10/29/18 17:30 99 20 104/70 (81) 100 10/29/18 17:00 97 32 40 10/29/18 17:00 100 20 102/68 (79) 100 10/29/18 16:52 95/48 10/29/18 16:30 105 20 106/70 (82) 100 10/29/18 16:00 Mechanical Ventilator 10/29/18 16:00 101 10/29/18 16:00 40 10/29/18 16:00 98 20 105/68 (80) 100 10/29/18 15:30 105 20 106/60 (75) 100 10/29/18 15:00 101 20 108/60 (76) 100 10/29/18 15:00 104 20 105/62 (76) 100 10/29/18 14:42 104 35 40 10/29/18 14:30 99 20 99/60 (73) 100 10/29/18 14:00 95 22 98/58 (71) 100 10/29/18 13:30 98 22 92/41 (58) 100 10/29/18 13:00 101 22 100/45 (63) 100 10/29/18 12:55 102 31 40 10/29/18 12:30 100 22 92/53 (66) 100 10/29/18 12:12 105/48 10/29/18 12:00 104 10/29/18 12:00 40 10/29/18 12:00 98.4 98 22 94/47 (63) 100 10/29/18 12:00 Mechanical Ventilator 10/29/18 11:40 108/56 10/29/18 11:30 100 22 95/44 (61) 100 10/29/18 11:00 105 22 106/48 (67) 100 10/29/18 10:42 104 34 40 10/29/18 10:30 80 22 104/50 (68) 100 10/29/18 10:00 85 22 108/48 (68) 100 Intake and Output 10/29/18 10/30/18 18:59 06:59 Intake Total 510 ml 1082.60 ml Output Total 100 ml 300 ml Balance 410 ml 782.60 ml Free Water 100 ml IV Total 30 ml 502.60 ml Tube Feeding 480 ml 480 ml Stool Total 100 ml 300 ml Microbiology Date/Time Source Procedure Growth Status 10/20/18 06:10 Blood Blood Culture - Final NO GROWTH AFTER 5 DAYS Complete 10/20/18 10:00 Sputum Induced Gram Stain - Final Complete 10/20/18 10:00 Sputum Culture - Final Ana Laura Species Usual Respiratory Melany Complete 10/24/18 01:35 Stool Clostridium difficile Toxin Assay - Final Complete Current Medications Medications (Trade) Dose Ordered Sig/Ashely Route PRN Reason Start Time Stop Time Status Last Admin Dose Admin Aspirin (Ecotrin) 81 mg DAILY ORAL 10/19/18 09:00 11/09/18 08:59 10/30/18 08:26 Barium Sulfate (Readi-Cat 2) 450 ml NOW PRN ORAL Radiology Procedure 10/28/18 12:15 10/30/18 12:07 Calcium Carbonate (Tums) 500 mg BID GT 10/20/18 18:00 11/09/18 08:59 10/30/18 08:27 Chlorhexidine Gluconate (Anai-Hex 2%) 1 applic DAILY@2000 TOPIC 10/18/18 20:00 11/12/18 19:59 10/29/18 19:43 Dextrose (Dextrose 50%) 25 ml Q30M PRN IV Hypoglycemia 10/23/18 08:15 11/22/18 08:14 Dextrose (Dextrose 50%) 50 ml Q30M PRN IV Hypoglycemia 10/23/18 08:15 11/22/18 08:14 Dobutamine HCl 250 ml @ 10.05 mls/ hr Q24H IV 10/19/18 11:40 11/18/18 11:39 10/22/18 12:43 Dopamine HCl/ Dextrose 250 ml @ 0 mls/hr Q24H IV 10/19/18 12:45 11/18/18 12:44 10/20/18 17:43 Fluconazole/ Sodium Chloride 100 ml @ 100 mls/hr Q24H IV 10/28/18 20:00 11/04/18 19:59 10/29/18 19:43 Haloperidol Lactate (Haldol) 5 mg Q6H PRN IM Agitation 10/18/18 17:00 11/17/18 16:59 Insulin Aspart (NovoLOG) EVERY 6 HOURS SUBQ 10/30/18 12:00 11/22/18 08:59 Latanoprost (Xalatan) 1 drop BEDTIME BOTH EYES 10/18/18 21:00 11/10/18 20:59 10/29/18 20:56 Loperamide HCl (Imodium) 2 mg Q4H PRN ORAL Diarrhea 10/27/18 09:45 11/26/18 09:44 Meropenem 500 mg/ Sodium Chloride 50 ml @ 100 mls/hr Q24HRS IVPB 10/29/18 00:00 11/03/18 00:00 10/29/18 23:51 Midodrine (Pro-Amatine) 2.5 mg THREE TIMES A DAY ORAL 10/30/18 09:00 11/29/18 08:59 10/30/18 08:27 Norepinephrine Bitartrate 16 mg/ Dextrose 500 ml @ 0 mls/hr Q24H IV 10/20/18 18:00 11/19/18 17:59 10/30/18 08:25 Ondansetron HCl (Zofran) 4 mg Q8H PRN IVP Nausea & Vomiting 10/18/18 17:00 11/17/18 16:59 Promethazine HCl (Phenergan Plain) 6.25 mg Q6H PRN ORAL For Cough 10/18/18 16:45 11/10/18 04:32 Vancomycin HCl (Vanco rx to dose) 1 ea DAILY PRN MISC Per rx protocol 10/19/18 23:30 11/18/18 23:29 Vasopressin 100 units/Sodium Chloride 100 ml @ 2.4 mls/hr Q24H IV 10/22/18 15:00 11/21/18 14:59 10/25/18 15:13 Laboratory Tests 10/30/18 05:30: White Blood Count 15.1H, Red Blood Count 3.10L, Hemoglobin 8.4L, Hematocrit 27.3L, Mean Corpuscular Volume 88, Mean Corpuscular Hemoglobin 27.2, Mean Corpuscular Hemoglobin Concent 30.9L, Red Cell Distribution Width 24.9H, Platelet Count 65L, Mean Platelet Volume 8.5, Neutrophils (%) (Auto) , Lymphocytes (%) (Auto) , Monocytes (%) (Auto) , Eosinophils (%) (Auto) , Basophils (%) (Auto) , Neutrophils % (Manual) [Pending], Lymphocytes % (Manual) [Pending], Platelet Estimate [Pending], Platelet Morphology [Pending], Sodium Level 128L, Potassium Level 3.9, Chloride Level 93L, Carbon Dioxide Level 24, Anion Gap 11, Blood Urea Nitrogen 66H, Creatinine 3.8H, Estimat Glomerular Filtration Rate , Glucose Level 123H, Calcium Level 8.6, Total Bilirubin 3.7H, Direct Bilirubin 3.1H, Aspartate Amino Transf (AST/SGOT) 119H, Alanine Aminotransferase (ALT/SGPT) 84H, Alkaline Phosphatase 248H, Total Protein 5.6L, Albumin 1.3L, Globulin 4.3, Albumin/Globulin Ratio 0.3L, Random Vancomycin Level 20.3 Height (Feet): 5 Height (Inches): 2.00 Weight (Pounds): 202 Objective exam stable Aaron Eduardo MD Oct 30, 2018 09:38
--- NOTE | 2018-10-30 09:55 | NUR ---
NURSE NOTES: MD HALL HERE TO SEE PT. NO NEW ORDERS AT THIS TIME.
--- NOTE | 2018-10-30 10:55 | NUR ---
NURSE NOTES: MD CONTRERAS HERE TO SEE PT. RECEIVED ORDER TO INPUT ABG AND CXR FOR TODAY.
--- NOTE | 2018-10-30 11:00 | NUR ---
NURSE NOTES: PHOTOS TAKEN OF WOUNDS ON BILATERAL UPPER AND LOWER EXTREMITIES. DRESSING CHANGES AND WOUNDS CLEANED WITH NS. PT CLEANED AND REPOSITIONED. HOB>30. PT IN NO ACUTE DISTRESS. WILL CONTINUE TO MONITOR PT CLOSELY.
--- NOTE | 2018-10-30 11:05 | Pulmonolgy Critical Care Note ---
Critical Care - Asmt/Plan Problems: (1) Respiratory failure, acute (2) Ventilator dependence (3) CHF (congestive heart failure) (4) CAD (coronary artery disease) (5) NSTEMI (non-ST elevated myocardial infarction) (6) Respiratory acidosis (7) Hemoptysis (8) Hypoglycemia (9) Pneumonia (10) Hypotension (11) Elevated d-dimer (12) Acute kidney injury superimposed on CKD Assessment & Plan: S/P initiation of HD (13) Hyponatremia (14) Sepsis Respiratory: monitor respiratory rate, adjust FIO2, CXR, ABG, weaning trial Cardiac: continue pressors - Titrate NE for MAP > 60, Inc MIDODRINE to 5 TID, continue to monitor HR/BP, other - F/U cards recs, UF as able Renal: check electrolytes, other - HD per renal with UF as able. 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, ID, other - Discussed with: nurses, consultants, other - DNAR Critical Care - Objective Last 24 Hour Vital Signs Date Time Temp Pulse Resp B/P (MAP) Pulse Ox O2 Delivery O2 Flow Rate FiO2 10/30/18 10:30 102 25 108/50 (69) 100 10/30/18 10:00 98 19 106/30 (55) 100 10/30/18 09:30 94 13 100/39 (59) 100 10/30/18 09:20 100 10/30/18 09:20 95 33 40 10/30/18 09:00 93 0 102/42 (62) 100 10/30/18 08:30 96 14 102/62 (75) 100 10/30/18 08:25 106/53 10/30/18 08:00 97.3 93 0 110/43 (65) 100 10/30/18 08:00 40 10/30/18 08:00 Mechanical Ventilator 10/30/18 07:30 94 7 109/45 (66) 100 10/30/18 07:00 94 7 105/57 (73) 100 10/30/18 06:45 93 32 40 10/30/18 06:30 91 20 105/47 (66) 100 10/30/18 06:00 90 20 92/57 (69) 100 10/30/18 06:00 92/57 10/30/18 05:45 91 20 77/31 (46) 100 10/30/18 05:45 77/33 10/30/18 05:30 92 20 100/43 (62) 100 10/30/18 05:15 91 27 40 10/30/18 05:00 97/42 10/30/18 05:00 90 20 97/42 (60) 100 10/30/18 04:30 91 18 91/43 (59) 100 10/30/18 04:00 Mechanical Ventilator 10/30/18 04:00 40 10/30/18 04:00 99/43 10/30/18 04:00 97.6 92 22 99/43 (61) 100 10/30/18 03:30 91 20 99/49 (66) 100 10/30/18 03:24 93 24 40 10/30/18 03:04 91 10/30/18 03:00 92 20 99/47 (64) 100 10/30/18 03:00 99/47 10/30/18 02:30 91 20 95/45 (62) 100 10/30/18 02:00 92 13 101/40 (60) 100 10/30/18 02:00 95/41 10/30/18 01:30 93 20 98/38 (58) 100 10/30/18 01:29 94 29 40 10/30/18 01:00 98/48 10/30/18 01:00 92 20 98/48 (65) 100 10/30/18 00:30 94 20 103/44 (63) 100 10/30/18 00:30 103/44 10/30/18 00:00 97.9 91 13 59/32 (41) 100 10/30/18 00:00 91 10/30/18 00:00 59/32 10/30/18 00:00 Mechanical Ventilator 10/30/18 00:00 40 10/29/18 23:30 88 20 97/35 (55) 100 10/29/18 23:29 93 31 40 10/29/18 23:00 88 20 88/47 (61) 100 10/29/18 23:00 88/47 10/29/18 22:30 88 23 96/41 (59) 100 10/29/18 22:00 89 20 91/40 (57) 100 10/29/18 22:00 91/40 10/29/18 21:30 89 20 90/41 (57) 100 10/29/18 21:00 98/38 10/29/18 21:00 90 20 98/38 (58) 100 10/29/18 20:34 91 34 40 10/29/18 20:30 91 20 97/48 (64) 100 10/29/18 20:00 98.3 92 20 91/49 (63) 100 10/29/18 20:00 40 10/29/18 20:00 91/49 10/29/18 20:00 Mechanical Ventilator 10/29/18 19:35 90 10/29/18 19:30 91 20 93/39 (57) 99 10/29/18 19:21 91 34 40 40 10/29/18 19:00 95 20 100/65 (77) 100 10/29/18 19:00 90/37 10/29/18 18:30 99 20 104/70 (81) 100 10/29/18 18:00 98.8 101 20 105/72 (83) 100 10/29/18 17:30 99 20 104/70 (81) 100 10/29/18 17:00 97 32 40 10/29/18 17:00 100 20 102/68 (79) 100 10/29/18 16:52 95/48 10/29/18 16:30 105 20 106/70 (82) 100 10/29/18 16:00 Mechanical Ventilator 10/29/18 16:00 101 10/29/18 16:00 40 10/29/18 16:00 98 20 105/68 (80) 100 10/29/18 15:30 105 20 106/60 (75) 100 10/29/18 15:00 101 20 108/60 (76) 100 10/29/18 15:00 104 20 105/62 (76) 100 10/29/18 14:42 104 35 40 10/29/18 14:30 99 20 99/60 (73) 100 10/29/18 14:00 95 22 98/58 (71) 100 10/29/18 13:30 98 22 92/41 (58) 100 10/29/18 13:00 101 22 100/45 (63) 100 10/29/18 12:55 102 31 40 10/29/18 12:30 100 22 92/53 (66) 100 10/29/18 12:12 105/48 10/29/18 12:00 104 10/29/18 12:00 40 10/29/18 12:00 98.4 98 22 94/47 (63) 100 10/29/18 12:00 Mechanical Ventilator 10/29/18 11:40 108/56 10/29/18 11:30 100 22 95/44 (61) 100 10/29/18 11:00 105 22 106/48 (67) 100 Status: awake - on vent Condition: critical HEENT: atraumatic, normocephalic Neck: other - JVD to AOM Lungs: rales Heart: HR/BP unstable Abdomen: soft, non-tender, active bowel sounds, other - SQ edema Extremities: edema - 2+ Accucheck: 123 Blood Sugars: BS controlled Critical Care - Subjective ROS Limited/Unobtainable: Yes ICU Day: 13 Intubation Day: 12 Interval Events: Failed SBT S/P HD -2L on 16 mcg NE no secretions reanna TF's Condition: critical IV Access: PICC, central EKG Rhythm: Sinus Rhythm FI02: 40 Vent Support Breath Rate: 20 Vent Support Mode: AC Vent Tidal Volume: 500 Sputum Amount: Moderate PEEP: 5.0 PIP: 41 Secretions: No sig Fluids: SLIV Drips: NE@16 Tube Feeding Amount: 40 I&O: Intake and Output 10/29/18 10/30/18 18:59 06:59 Intake Total 510 ml 1082.60 ml Output Total 100 ml 300 ml Balance 410 ml 782.60 ml Free Water 100 ml IV Total 30 ml 502.60 ml Tube Feeding 480 ml 480 ml Stool Total 100 ml 300 ml Subjective: ZACHARY ET-Tube: 7.5 ET Position: 23 Labs: Laboratory Tests Test 10/30/18 05:30 White Blood Count 15.1 K/UL (4.8-10.8) H Red Blood Count 3.10 M/UL (4.70-6.10) L Hemoglobin 8.4 G/DL (14.2-18.0) L Hematocrit 27.3 % (42.0-52.0) L Mean Corpuscular Volume 88 FL (80-99) Mean Corpuscular Hemoglobin 27.2 PG (27.0-31.0) Mean Corpuscular Hemoglobin Concent 30.9 G/DL (32.0-36.0) L Red Cell Distribution Width 24.9 % (11.6-14.8) H Platelet Count 65 K/UL (150-450) L Mean Platelet Volume 8.5 FL (6.5-10.1) Neutrophils (%) (Auto) % (45.0-75.0) Lymphocytes (%) (Auto) % (20.0-45.0) Monocytes (%) (Auto) % (1.0-10.0) Eosinophils (%) (Auto) % (0.0-3.0) Basophils (%) (Auto) % (0.0-2.0) Differential Total Cells Counted 100 Neutrophils % (Manual) 97 % (45-75) H Lymphocytes % (Manual) 2 % (20-45) L Monocytes % (Manual) 1 % (1-10) Eosinophils % (Manual) 0 % (0-3) Basophils % (Manual) 0 % (0-2) Band Neutrophils 0 % (0-8) Platelet Estimate Decreased L Platelet Morphology Normal Polychromasia 1+ Hypochromasia 1+ Anisocytosis 2+ Sodium Level 128 MMOL/L (136-145) L Potassium Level 3.9 MMOL/L (3.5-5.1) Chloride Level 93 MMOL/L (98-107) L Carbon Dioxide Level 24 MMOL/L (21-32) Anion Gap 11 mmol/L (5-15) Blood Urea Nitrogen 66 mg/dL (7-18) H Creatinine 3.8 MG/DL (0.55-1.30) H Estimat Glomerular Filtration Rate mL/min (>60) Glucose Level 123 MG/DL (74-106) H Calcium Level 8.6 MG/DL (8.5-10.1) Total Bilirubin 3.7 MG/DL (0.2-1.0) H Direct Bilirubin 3.1 MG/DL (0.0-0.3) H Aspartate Amino Transf (AST/SGOT) 119 U/L (15-37) H Alanine Aminotransferase (ALT/SGPT) 84 U/L (12-78) H Alkaline Phosphatase 248 U/L (46-116) H Total Protein 5.6 G/DL (6.4-8.2) L Albumin 1.3 G/DL (3.4-5.0) L Globulin 4.3 g/dL Albumin/Globulin Ratio 0.3 (1.0-2.7) L Random Vancomycin Level 20.3 ug/mL Chidi Bourne MD Oct 30, 2018 11:05
[2018-10-30] MEDS: DOBUTamine 250mg/250ml Premix 250 ML IV SCH (11:40)
[2018-10-30] MEDS: DOPamine 400mg/250ml 250 ML IV SCH (12:23)
--- NOTE | 2018-10-30 13:30 | NUR ---
NURSE NOTES: called MD Bourne, w/ [facility] results. NO NEW ORDER.
--- NOTE | 2018-10-30 14:06 | NUR ---
NURSE NOTES: family at pt bedside, reported pt stable, unable to disclose more pt info because son holds POA, will be in to see pt later. pt stable. r.t attempting to obtain ABG's. replaced rt arm BP cuff, previously removed for ABG.
[2018-10-30] MEDS: Vasopressin 100 UNITS in NS 95 ML IV SCH (15:00)
--- NOTE | 2018-10-30 15:33 | Neurology Progress Note ---
Interim History Interim History Interim History Mr. Gann feels better. He is more responsive. He opens his eyes on vocal stimulation. He is able to give yes/no answers. He follows commands consistently He is still moving his left side better than the right. He continues to be on a single pressor. He continues to be intubated and artificially ventilated. He still has significant anasarca. He continues to be ill. Review of Systems Neuro Review of Systems Unable to obtain. Objective Physical Exam Last Vital Signs Date Time Temp Pulse Resp B/P (MAP) Pulse Ox O2 Delivery O2 Flow Rate FiO2 10/30/18 14:59 97 27 40 10/30/18 13:30 101/54 (70) 100 10/30/18 12:00 98.3 10/30/18 12:00 Mechanical Ventilator Laboratory Tests Test 10/30/18 05:30 10/30/18 13:05 White Blood Count 15.1 K/UL (4.8-10.8) H Red Blood Count 3.10 M/UL (4.70-6.10) L Hemoglobin 8.4 G/DL (14.2-18.0) L Hematocrit 27.3 % (42.0-52.0) L Mean Corpuscular Volume 88 FL (80-99) Mean Corpuscular Hemoglobin 27.2 PG (27.0-31.0) Mean Corpuscular Hemoglobin Concent 30.9 G/DL (32.0-36.0) L Red Cell Distribution Width 24.9 % (11.6-14.8) H Platelet Count 65 K/UL (150-450) L Mean Platelet Volume 8.5 FL (6.5-10.1) Neutrophils (%) (Auto) % (45.0-75.0) Lymphocytes (%) (Auto) % (20.0-45.0) Monocytes (%) (Auto) % (1.0-10.0) Eosinophils (%) (Auto) % (0.0-3.0) Basophils (%) (Auto) % (0.0-2.0) Differential Total Cells Counted 100 Neutrophils % (Manual) 97 % (45-75) H Lymphocytes % (Manual) 2 % (20-45) L Monocytes % (Manual) 1 % (1-10) Eosinophils % (Manual) 0 % (0-3) Basophils % (Manual) 0 % (0-2) Band Neutrophils 0 % (0-8) Platelet Estimate Decreased L Platelet Morphology Normal Polychromasia 1+ Hypochromasia 1+ Anisocytosis 2+ Sodium Level 128 MMOL/L (136-145) L Potassium Level 3.9 MMOL/L (3.5-5.1) Chloride Level 93 MMOL/L (98-107) L Carbon Dioxide Level 24 MMOL/L (21-32) Anion Gap 11 mmol/L (5-15) Blood Urea Nitrogen 66 mg/dL (7-18) H Creatinine 3.8 MG/DL (0.55-1.30) H Estimat Glomerular Filtration Rate mL/min (>60) Glucose Level 123 MG/DL (74-106) H Calcium Level 8.6 MG/DL (8.5-10.1) Total Bilirubin 3.7 MG/DL (0.2-1.0) H Direct Bilirubin 3.1 MG/DL (0.0-0.3) H Aspartate Amino Transf (AST/SGOT) 119 U/L (15-37) H Alanine Aminotransferase (ALT/SGPT) 84 U/L (12-78) H Alkaline Phosphatase 248 U/L (46-116) H Total Protein 5.6 G/DL (6.4-8.2) L Albumin 1.3 G/DL (3.4-5.0) L Globulin 4.3 g/dL Albumin/Globulin Ratio 0.3 (1.0-2.7) L Random Vancomycin Level 20.3 ug/mL Arterial Blood pH 7.390 (7.350-7.450) Arterial Blood Partial Pressure CO2 41.3 mmHg (35.0-45.0) Arterial Blood Partial Pressure O2 47.4 mmHg (75.0-100.0) Arterial Blood HCO3 24.4 mmol/L (22.0-26.0) Arterial Blood Oxygen Saturation 80.9 % (95-100) *L Arterial Blood Base Excess -0.5 (-2-2) Tee Test Positive Neurologic Exam Objective PHYSICAL EXAMINATION: GENERAL: He is a well-developed, relatively well-nourished, gentleman , lying in an ICU bed, connected to a ventilator through an orotracheal tube. HEAD: Normocephalic and atraumatic. NECK: No neck rigidity was observed. EENT: Benign. NEUROLOGICAL EXAMINATION: MENTAL STATUS EXAMINATION: He opened his eyes on vocal stimuli. He was brighter. He followed simple commands well. He was able to communicate with yes/no answers. Further mental status testing was impossible. SPEECH: Could not be tested. LANGUAGE: He was able to comprehend well and mouth a few words. CRANIAL NERVE EXAMINATION: II: He did blink to threat. He counted fingers. III, IV & : The external ocular movements were present. The pupils were 3 mm in diameter, equal, round, regular, and did not react to light. V & VII: The corneal reflexes were present bilaterally, but significantly diminished on the right side compared to the left. VIII: He did not respond to sounds and had no nystagmus. IX & X: The gag reflex was absent on manipulating the endotracheal tube. XI: The sternocleidomastoids and trapezii did not function. XII: Could not be tested adequately. MOTOR SYSTEM: The tone was normal in all four extremities. Examination of muscle mass revealed no focal wasting. Examination of power was impossible to perform accurately he moved his left side better than the right. SENSORY EXAMINATION: He responded appropriately to deep pain. He was unable to cooperate for other sensory modalities. REFLEXES: Trace+ and bilaterally symmetrical at the biceps, triceps, brachioradialis. 0 at both knees and ankles. The plantar response was extensor on the right and mute on the left. COORDINATION, STANCE & GAIT: Could not be tested. ABNORMAL MOVEMENTS: Tremor (7-8 Hz): 0/4 Impression/Recommendations Diagnostic Impression 1. Mr. Marla Gann is an 83-year-old, gentleman, of unknown handedness, with a past history of multiple medical problems including hypertension, diabetes mellitus, dyslipidemia, aortic stenosis, vitamin B12 deficiency, vitamin D deficiency, coronary artery disease, congestive heart failure, and intestinal pathology. He was hospitalized on 10/09/2018 for an altered mental state related to multiple metabolic imbalances. He did improve, but then in the hospital, he has had multiple further episodes of hypoglycemia. On the morning of 10/19/18, his blood sugar dropped to 22. He has also had problems with his respiratory function, progressive renal dysfunction, and on the morning of 10/19/18 was noted to have weakness in his right upper extremity, this problem continues. 2. He feels better. He is more responsive. He opens his eyes on vocal stimulation. He is able to give yes/no answers. He follows commands consistently He is still moving his left side better than the right. He continues to be on a single pressor. He continues to be intubated and artificially ventilated. He still has significant anasarca. He continues to be ill. 3. On neurological examination, at this time, he opens his eyes on vocal stimuli , he is able to follow commands consistently. He is able to communicate with yes /no answers, however further mental status testing is impossible. The corneal reflex is definitely diminished on the right side compared to the left. 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 His deep tendon reflexes are globally diminished in the upper extremities and lost in the lower extremities. His plantar response is extensor on the right and mute on the left. He has no tremor. 4. His laboratory data on my initial evaluation revealed that his WBC count was elevated to 16,000. His hemoglobin was low at 7.2 G. His arterial blood gas revealed a pH of 7.18, a pCO2 of 43, and a pO2 of 112. His chemistry panel revealed a sodium of 133, potassium of 5.3, chloride of 91, BUN at 89, creatinine at 5.2, and blood glucose at 22. 5. His EEG done on 10/19/18 revealed a moderately severe encephalopathy with a definite toxic/metabolic component. 6. The Repeat EEG done on 10/23/18 revealed a moderately severe toxic/metabolic encephalopathy. In addition left > right hemispheric dysfunction was seen. The abnormal movements had no EEG correlate. 7. The CT of the brain was benign for acute pathology. 8. His latest laboratory tests reveal that his leukocytosis is worse with a WBC count of 26,300. He is severely hyponatremic with a Na of 121 and chloride of 86. His BUN is elevated at 72 with a creatinine of 4.9. His LFTs are elevated and so is his glucose. 9. The patient's history, neurological examination, and laboratory data are most compatible with a significant toxic metabolic encephalopathy that brought him into the hospital, and now possibly an acute cerebral lesion causing the right hemiparesis. 10. The left UE movement was a tremor. It has now resolved. However the EEG while he was having the tremor revealed no EEG correlate. 11. His encephalopathy continues to improve. Recommendations 1. Continue present management. 2. Continue to correct toxic metabolic imbalances. 3. Try to keep the blood pressure >110 mmHg systolic. 4. When possible get MRI of brain. 5. Observe closely in ICU setting. Abram Johnson M.D., M.S.P.H. Abram Johnson MD Oct 30, 2018 15:33
--- NOTE | 2018-10-30 15:40 | Infectious Diseases Prog Note ---
Assessment/Plan Assessment/Plan A) 1) sepsis, shock, leukocytosis, pna, ? fungemia, ? c.diff., fungemia risk, respiratory failure - leukocytosis better - remains on pressors - more alert overall - c.diff. - negative - chest x-ray with new infiltrate 2) respiratory failure, vent, dm, htn, fred, HD, nstemi, anemia, cad, chf, hyponatremia 3) , pvd, cidp, prostate ca, ckd 4) sh-neg, fh-nc, mar noted, orders and notes reviewed 5) allergies - pcn 6) d/w RN P) 1) meropenem, vancomycin and diflcuan 2) monitor labs and chest x-ray, f/u sputum culture pending 3) continue treatment per primary team and consultants 4) condition critical 5) continue icu supportive care Subjective Constitutional: Reports: fatigue, other - more alert, on vent and pressors ; Denies: fever HEENT: Reports: congestion Respiratory: Reports: shortness of breath Cardiovascular: Reports: other - on pressors; Denies: chest pain Gastrointestinal/Abdominal: Reports: other - + rectal ; Denies: nausea, vomiting Genitourinary: Reports: other - + cooper Neurologic: Reports: other - more alert Psychiatric: Reports: other - na Skin: Denies: rash Hematologic: Denies: bleeding Musculoskeletal: Denies: pain Allergies: Coded Allergies: PENICILLINS (Verified Allergy, Unknown, 10/09/18) Objective Vital Signs Last 24 Hour Vital Signs Date Time Temp Pulse Resp B/P (MAP) Pulse Ox O2 Delivery O2 Flow Rate FiO2 10/30/18 14:59 97 27 40 10/30/18 13:30 90 25 101/54 (70) 100 10/30/18 13:00 90 25 108/50 (69) 100 10/30/18 13:00 88 20 40 10/30/18 12:30 95 8 104/51 (68) 100 10/30/18 12:00 40 10/30/18 12:00 98.3 95 25 107/51 (69) 100 10/30/18 12:00 96 10/30/18 12:00 Mechanical Ventilator 10/30/18 11:30 101 15 127/57 (80) 100 10/30/18 11:00 99 11 85/49 (61) 100 10/30/18 10:42 96 29 40 10/30/18 10:30 102 25 108/50 (69) 100 10/30/18 10:00 98 19 106/30 (55) 100 10/30/18 09:30 94 13 100/39 (59) 100 10/30/18 09:20 100 10/30/18 09:20 95 33 40 10/30/18 09:00 93 0 102/42 (62) 100 10/30/18 08:30 96 14 102/62 (75) 100 10/30/18 08:25 106/53 10/30/18 08:00 97.3 93 0 110/43 (65) 100 10/30/18 08:00 95 10/30/18 08:00 40 10/30/18 08:00 Mechanical Ventilator 10/30/18 07:30 94 7 109/45 (66) 100 10/30/18 07:00 94 7 105/57 (73) 100 10/30/18 06:45 93 32 40 10/30/18 06:30 91 20 105/47 (66) 100 10/30/18 06:00 90 20 92/57 (69) 100 10/30/18 06:00 92/57 10/30/18 05:45 91 20 77/31 (46) 100 10/30/18 05:45 77/33 10/30/18 05:30 92 20 100/43 (62) 100 10/30/18 05:15 91 27 40 10/30/18 05:00 97/42 10/30/18 05:00 90 20 97/42 (60) 100 10/30/18 04:30 91 18 91/43 (59) 100 10/30/18 04:00 Mechanical Ventilator 10/30/18 04:00 40 10/30/18 04:00 99/43 10/30/18 04:00 97.6 92 22 99/43 (61) 100 10/30/18 03:30 91 20 99/49 (66) 100 10/30/18 03:24 93 24 40 10/30/18 03:04 91 10/30/18 03:00 92 20 99/47 (64) 100 10/30/18 03:00 99/47 10/30/18 02:30 91 20 95/45 (62) 100 10/30/18 02:00 92 13 101/40 (60) 100 10/30/18 02:00 95/41 10/30/18 01:30 93 20 98/38 (58) 100 10/30/18 01:29 94 29 40 10/30/18 01:00 98/48 10/30/18 01:00 92 20 98/48 (65) 100 10/30/18 00:30 94 20 103/44 (63) 100 10/30/18 00:30 103/44 10/30/18 00:00 97.9 91 13 59/32 (41) 100 10/30/18 00:00 91 10/30/18 00:00 59/32 10/30/18 00:00 Mechanical Ventilator 10/30/18 00:00 40 10/29/18 23:30 88 20 97/35 (55) 100 10/29/18 23:29 93 31 40 10/29/18 23:00 88 20 88/47 (61) 100 10/29/18 23:00 88/47 10/29/18 22:30 88 23 96/41 (59) 100 10/29/18 22:00 89 20 91/40 (57) 100 10/29/18 22:00 91/40 10/29/18 21:30 89 20 90/41 (57) 100 10/29/18 21:00 98/38 10/29/18 21:00 90 20 98/38 (58) 100 10/29/18 20:34 91 34 40 10/29/18 20:30 91 20 97/48 (64) 100 10/29/18 20:00 98.3 92 20 91/49 (63) 100 10/29/18 20:00 40 10/29/18 20:00 91/49 10/29/18 20:00 Mechanical Ventilator 10/29/18 19:35 90 10/29/18 19:30 91 20 93/39 (57) 99 10/29/18 19:21 91 34 40 40 10/29/18 19:00 95 20 100/65 (77) 100 10/29/18 19:00 90/37 10/29/18 18:30 99 20 104/70 (81) 100 10/29/18 18:00 98.8 101 20 105/72 (83) 100 10/29/18 17:30 99 20 104/70 (81) 100 10/29/18 17:00 97 32 40 10/29/18 17:00 100 20 102/68 (79) 100 10/29/18 16:52 95/48 10/29/18 16:30 105 20 106/70 (82) 100 10/29/18 16:00 Mechanical Ventilator 10/29/18 16:00 101 10/29/18 16:00 40 10/29/18 16:00 98 20 105/68 (80) 100 10/29/18 15:30 105 20 106/60 (75) 100 Height (Feet): 5 Height (Inches): 2.00 Weight (Pounds): 202 General Appearance: other - on vent and pressors, much more alert HEENT: normocephalic, atraumatic, anicteric, EOMI, no JVD, other - oral - intubated Respiratory/Chest: crackles/rales, rhonchi - bilaterally, other - on vent Cardiovascular: normal rate, regular rhythm, no gallop/murmur, no JVD Abdomen: normal bowel sounds, soft, non tender, no organomegaly Genitourinary: other - + cooper Extremities: no cyanosis Skin: no rash 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 Stable satisfactory positions of endotracheal tube, right external jugular temporary dialysis catheter, left arm PICC. Interim placement of a nasogastric tube, tip which projects beyond the edge of image, documented to be intragastric on an earlier abdominal radiograph. Previously demonstrated right basilar interstitial opacities appear improved Impression: Interim enteric feeding tube placement. Slight clearing of previously demonstrated right basilar interstitial opacities. Otherwise, little gear changer 2 days, findings as noted Chest x-ray - 10/26/18 - Impression: Worsening pulmonary interstitial and airspace edema. Stable left, increasing right pleural effusions, both small Satisfactory tube and line positions, as described 10/28/18 - chest x-ray - Comparison: 10/26/2018 Findings: Gastric tube appears retracted, tip projecting at or just beyond the gastroesophageal junction. Stable satisfactory position of endotracheal tube, left arm PICC, right jugular temporary dialysis catheter. There is increased airspace consolidation in the right mid and lower lung. There is suggestion of increased retrocardiac opacity, although suspect that this is an artifact of decreased exposure as compared to prior study. Bilateral pleural effusions are again demonstrated. Impression: New or increased infiltrate in the right mid and lower lung Somewhat high position of gastric tube; advancement recommended. This finding was phoned to ICU charge nurse Brenda at the time of interpretation. Other stable findings as described CT scan abdomen and pelvis - 10/28/18 IMPRESSION: Anasarca, with diffuse edema of the subcutaneous fat and to a lesser extent the mediastinal and abdominal fat, as well as pleural fluid and ascites Basilar pulmonary parenchymal consolidation and atelectasis. Extensive upper lobe reticular and nodular interstitial and airspace opacities. Most likely on the basis of pulmonary edema, given other findings, but infectious or noninfectious inflammatory etiologies also possible. Bilateral small pleural effusions, as mentioned above Cardiomegaly Minimal pericardial fluid Tube and line positions as described Evidence of prior prostatectomy Right hydronephrosis. Right hydroureter, with appears to terminate in a 4.9 x 1.2 cm area of soft tissue opacity in the right side of the pelvis adjacent to the ureteral orifice with associated surgical clips. This may indicate ureteral obstruction secondary to scar tissue versus a recurrent pelvic mass. Hydronephrosis also noted on prior abdominal ultrasound of 10/22/2018 Ascites, as mentioned above Possible hepatic surface nodularity, if real could indicate cirrhosis Surgically absent gallbladder Microbiology Date/Time Source Procedure Growth Status 10/20/18 06:10 Blood Blood Culture - Final NO GROWTH AFTER 5 DAYS Complete 10/30/18 03:30 Sputum Induced Gram Stain - Final Resulted 10/30/18 03:30 Sputum Induced Sputum Culture Pending Resulted 10/24/18 01:35 Stool Clostridium difficile Toxin Assay - Final Complete Microbiology Date/Time Source Procedure Growth Status 10/30/18 03:30 Sputum Induced Gram Stain - Final Resulted 10/30/18 03:30 Sputum Induced Sputum Culture Pending Resulted Laboratory Tests Test 10/30/18 05:30 10/30/18 13:05 White Blood Count 15.1 K/UL (4.8-10.8) H Red Blood Count 3.10 M/UL (4.70-6.10) L Hemoglobin 8.4 G/DL (14.2-18.0) L Hematocrit 27.3 % (42.0-52.0) L Mean Corpuscular Volume 88 FL (80-99) Mean Corpuscular Hemoglobin 27.2 PG (27.0-31.0) Mean Corpuscular Hemoglobin Concent 30.9 G/DL (32.0-36.0) L Red Cell Distribution Width 24.9 % (11.6-14.8) H Platelet Count 65 K/UL (150-450) L Mean Platelet Volume 8.5 FL (6.5-10.1) Neutrophils (%) (Auto) % (45.0-75.0) Lymphocytes (%) (Auto) % (20.0-45.0) Monocytes (%) (Auto) % (1.0-10.0) Eosinophils (%) (Auto) % (0.0-3.0) Basophils (%) (Auto) % (0.0-2.0) Differential Total Cells Counted 100 Neutrophils % (Manual) 97 % (45-75) H Lymphocytes % (Manual) 2 % (20-45) L Monocytes % (Manual) 1 % (1-10) Eosinophils % (Manual) 0 % (0-3) Basophils % (Manual) 0 % (0-2) Band Neutrophils 0 % (0-8) Platelet Estimate Decreased L Platelet Morphology Normal Polychromasia 1+ Hypochromasia 1+ Anisocytosis 2+ Sodium Level 128 MMOL/L (136-145) L Potassium Level 3.9 MMOL/L (3.5-5.1) Chloride Level 93 MMOL/L (98-107) L Carbon Dioxide Level 24 MMOL/L (21-32) Anion Gap 11 mmol/L (5-15) Blood Urea Nitrogen 66 mg/dL (7-18) H Creatinine 3.8 MG/DL (0.55-1.30) H Estimat Glomerular Filtration Rate mL/min (>60) Glucose Level 123 MG/DL (74-106) H Calcium Level 8.6 MG/DL (8.5-10.1) Total Bilirubin 3.7 MG/DL (0.2-1.0) H Direct Bilirubin 3.1 MG/DL (0.0-0.3) H Aspartate Amino Transf (AST/SGOT) 119 U/L (15-37) H Alanine Aminotransferase (ALT/SGPT) 84 U/L (12-78) H Alkaline Phosphatase 248 U/L (46-116) H Total Protein 5.6 G/DL (6.4-8.2) L Albumin 1.3 G/DL (3.4-5.0) L Globulin 4.3 g/dL Albumin/Globulin Ratio 0.3 (1.0-2.7) L Random Vancomycin Level 20.3 ug/mL Arterial Blood pH 7.390 (7.350-7.450) Arterial Blood Partial Pressure CO2 41.3 mmHg (35.0-45.0) Arterial Blood Partial Pressure O2 47.4 mmHg (75.0-100.0) Arterial Blood HCO3 24.4 mmol/L (22.0-26.0) Arterial Blood Oxygen Saturation 80.9 % (95-100) *L Arterial Blood Base Excess -0.5 (-2-2) Tee Test Positive Current Medications Medications (Trade) Dose Ordered Sig/Ashely Route PRN Reason Start Time Stop Time Status Last Admin Dose Admin Aspirin (Ecotrin) 81 mg DAILY ORAL 10/19/18 09:00 11/09/18 08:59 10/30/18 08:26 Calcium Carbonate (Tums) 500 mg BID GT 10/20/18 18:00 11/09/18 08:59 10/30/18 08:27 Chlorhexidine Gluconate (Anai-Hex 2%) 1 applic DAILY@2000 TOPIC 10/18/18 20:00 11/12/18 19:59 10/29/18 19:43 Dextrose (Dextrose 50%) 25 ml Q30M PRN IV Hypoglycemia 10/23/18 08:15 11/22/18 08:14 Dextrose (Dextrose 50%) 50 ml Q30M PRN IV Hypoglycemia 10/23/18 08:15 11/22/18 08:14 Dobutamine HCl 250 ml @ 10.05 mls/ hr Q24H IV 10/19/18 11:40 11/18/18 11:39 10/22/18 12:43 Dopamine HCl/ Dextrose 250 ml @ 0 mls/hr Q24H IV 10/19/18 12:45 11/18/18 12:44 10/20/18 17:43 Fluconazole/ Sodium Chloride 100 ml @ 100 mls/hr Q24H IV 10/28/18 20:00 11/04/18 19:59 10/29/18 19:43 Haloperidol Lactate (Haldol) 5 mg Q6H PRN IM Agitation 10/18/18 17:00 11/17/18 16:59 Insulin Aspart (NovoLOG) EVERY 6 HOURS SUBQ 10/30/18 12:00 11/22/18 08:59 10/30/18 12:38 Latanoprost (Xalatan) 1 drop BEDTIME BOTH EYES 10/18/18 21:00 11/10/18 20:59 10/29/18 20:56 Loperamide HCl (Imodium) 2 mg Q4H PRN ORAL Diarrhea 10/27/18 09:45 11/26/18 09:44 Meropenem 500 mg/ Sodium Chloride 50 ml @ 100 mls/hr Q24HRS IVPB 10/29/18 00:00 11/03/18 00:00 10/29/18 23:51 Midodrine (Pro-Amatine) 5 mg THREE TIMES A DAY ORAL 10/30/18 13:00 11/29/18 08:59 10/30/18 12:32 Norepinephrine Bitartrate 16 mg/ Dextrose 500 ml @ 0 mls/hr Q24H IV 10/20/18 18:00 11/19/18 17:59 10/30/18 08:25 Ondansetron HCl (Zofran) 4 mg Q8H PRN IVP Nausea & Vomiting 10/18/18 17:00 11/17/18 16:59 Promethazine HCl (Phenergan Plain) 6.25 mg Q6H PRN ORAL For Cough 10/18/18 16:45 11/10/18 04:32 Vancomycin HCl (Vanco rx to dose) 1 ea DAILY PRN MISC Per rx protocol 10/19/18 23:30 11/18/18 23:29 Vasopressin 100 units/Sodium Chloride 100 ml @ 2.4 mls/hr Q24H IV 10/22/18 15:00 11/21/18 14:59 10/25/18 15:13 Roseline Figueroa MD Oct 30, 2018 15:40
--- NOTE | 2018-10-30 15:42 | Diagnostic Imaging Report ---
EXAM: XR Chest, 1 View CLINICAL HISTORY: F/U TECHNIQUE: Frontal view of the chest. COMPARISON: Chest x-ray dated 10/28/18 FINDINGS: Lungs: No significant change in patchy consolidation in the right mid and lower lung and retrocardiac region. Pleural space: Suggestion of small pleural effusions, not significantly changed. Heart: Unremarkable. No cardiomegaly. Mediastinum: Unremarkable. Bones/joints: Degenerative changes throughout the visualized spine and shoulder joints. Vasculature: Atherosclerotic calcifications within the aortic arch. Tubes, lines and devices: Stable positioning of the endotracheal tube. NG tube tip coiled in the region of the stomach. Right IJ central venous catheter with the tips in the region of the SVC. EKG leads overlie the thorax. IMPRESSION: 1. No significant interval change compared to the prior chest x-ray. No significant change in patchy consolidation in the right mid and lower lung and retrocardiac region. Suggestion of small pleural effusions.
--- NOTE | 2018-10-30 16:03 | General Progress Note ---
Assessment/Plan Assessment/Plan Assessment/Plan Problem List: (1) Elevated LFTs ICD Codes: R94.5 - Abnormal results of liver function studies SNOMED: 107341372, 512891706 (2) Fatty liver ICD Codes: K76.0 - Fatty (change of) liver, not elsewhere classified SNOMED: 567233408 (3) History of cholecystectomy ICD Codes: Z90.49 - Acquired absence of other specified parts of digestive tract SNOMED: 06688870, 137672583 (4) Thrombocytopenia ICD Codes: D69.6 - Thrombocytopenia, unspecified SNOMED: 494552647 (5) possible panreatitis (6) Sepsis ICD Codes: A41.9 - Sepsis, unspecified organism SNOMED: 78733651 (7) Ventilator dependence ICD Codes: Z99.11 - Dependence on respirator [ventilator] status SNOMED: 727151744 (8) Hyponatremia ICD Codes: E87.1 - Hypo-osmolality and hyponatremia SNOMED: 27179704 (9) Respiratory failure, acute ICD Codes: J96.00 - Acute respiratory failure, unspecified whether with hypoxia or hypercapnia SNOMED: 48568921 (10) Acute metabolic encephalopathy ICD Codes: G93.41 - Metabolic encephalopathy SNOMED: 86939185, 137811779 (11) Pneumonia ICD Codes: J18.9 - Pneumonia, unspecified organism SNOMED: 071202917 (12) Hypotension ICD Codes: I95.9 - Hypotension, unspecified SNOMED: 98896495 (13) CAD (coronary artery disease) Assessment/Plan us reviewed - no dilated CBD fu lfts elevated LFTS due to meds vs ischemia protonix and lipitor no need for ERCP at this time ngtf repeat labs supportive care rectal tube on HD Subjective Allergies: Coded Allergies: PENICILLINS (Verified Allergy, Unknown, 10/09/18) Subjective Elderly WM intubated awake Objective Last 24 Hour Vital Signs Date Time Temp Pulse Resp B/P (MAP) Pulse Ox O2 Delivery O2 Flow Rate FiO2 10/30/18 14:59 97 27 40 10/30/18 13:30 90 25 101/54 (70) 100 10/30/18 13:00 90 25 108/50 (69) 100 10/30/18 13:00 88 20 40 10/30/18 12:30 95 8 104/51 (68) 100 10/30/18 12:00 40 10/30/18 12:00 98.3 95 25 107/51 (69) 100 10/30/18 12:00 96 10/30/18 12:00 Mechanical Ventilator 10/30/18 11:30 101 15 127/57 (80) 100 10/30/18 11:00 99 11 85/49 (61) 100 10/30/18 10:42 96 29 40 10/30/18 10:30 102 25 108/50 (69) 100 10/30/18 10:00 98 19 106/30 (55) 100 10/30/18 09:30 94 13 100/39 (59) 100 10/30/18 09:20 100 10/30/18 09:20 95 33 40 10/30/18 09:00 93 0 102/42 (62) 100 10/30/18 08:30 96 14 102/62 (75) 100 10/30/18 08:25 106/53 10/30/18 08:00 97.3 93 0 110/43 (65) 100 10/30/18 08:00 95 10/30/18 08:00 40 10/30/18 08:00 Mechanical Ventilator 10/30/18 07:30 94 7 109/45 (66) 100 10/30/18 07:00 94 7 105/57 (73) 100 10/30/18 06:45 93 32 40 10/30/18 06:30 91 20 105/47 (66) 100 10/30/18 06:00 90 20 92/57 (69) 100 10/30/18 06:00 92/57 10/30/18 05:45 91 20 77/31 (46) 100 10/30/18 05:45 77/33 10/30/18 05:30 92 20 100/43 (62) 100 10/30/18 05:15 91 27 40 10/30/18 05:00 97/42 10/30/18 05:00 90 20 97/42 (60) 100 10/30/18 04:30 91 18 91/43 (59) 100 10/30/18 04:00 Mechanical Ventilator 10/30/18 04:00 40 10/30/18 04:00 99/43 10/30/18 04:00 97.6 92 22 99/43 (61) 100 2/23/19 03:30 91 20 99/49 (66) 100 10/30/18 03:24 93 24 40 10/30/18 03:04 91 10/30/18 03:00 92 20 99/47 (64) 100 10/30/18 03:00 99/47 10/30/18 02:30 91 20 95/45 (62) 100 10/30/18 02:00 92 13 101/40 (60) 100 10/30/18 02:00 95/41 10/30/18 01:30 93 20 98/38 (58) 100 10/30/18 01:29 94 29 40 10/30/18 01:00 98/48 10/30/18 01:00 92 20 98/48 (65) 100 10/30/18 00:30 94 20 103/44 (63) 100 10/30/18 00:30 103/44 10/30/18 00:00 97.9 91 13 59/32 (41) 100 10/30/18 00:00 91 10/30/18 00:00 59/32 10/30/18 00:00 Mechanical Ventilator 10/30/18 00:00 40 10/29/18 23:30 88 20 97/35 (55) 100 10/29/18 23:29 93 31 40 10/29/18 23:00 88 20 88/47 (61) 100 10/29/18 23:00 88/47 10/29/18 22:30 88 23 96/41 (59) 100 10/29/18 22:00 89 20 91/40 (57) 100 10/29/18 22:00 91/40 10/29/18 21:30 89 20 90/41 (57) 100 10/29/18 21:00 98/38 10/29/18 21:00 90 20 98/38 (58) 100 10/29/18 20:34 91 34 40 10/29/18 20:30 91 20 97/48 (64) 100 10/29/18 20:00 98.3 92 20 91/49 (63) 100 10/29/18 20:00 40 10/29/18 20:00 91/49 10/29/18 20:00 Mechanical Ventilator 10/29/18 19:35 90 10/29/18 19:30 91 20 93/39 (57) 99 10/29/18 19:21 91 34 40 40 10/29/18 19:00 95 20 100/65 (77) 100 10/29/18 19:00 90/37 10/29/18 18:30 99 20 104/70 (81) 100 10/29/18 18:00 98.8 101 20 105/72 (83) 100 10/29/18 17:30 99 20 104/70 (81) 100 10/29/18 17:00 97 32 40 10/29/18 17:00 100 20 102/68 (79) 100 10/29/18 16:52 95/48 10/29/18 16:30 105 20 106/70 (82) 100 10/29/18 16:00 Mechanical Ventilator 10/29/18 16:00 101 10/29/18 16:00 40 10/29/18 16:00 98 20 105/68 (80) 100 Intake and Output 10/29/18 10/30/18 19:00 07:00 Intake Total 508.12 ml 1088.23 ml Output Total 100 ml 300 ml Balance 408.12 ml 788.23 ml Free Water 100 ml IV Total 28.12 ml 508.23 ml Tube Feeding 480 ml 480 ml Stool Total 100 ml 300 ml Laboratory Tests 10/30/18 05:30: White Blood Count 15.1H, Red Blood Count 3.10L, Hemoglobin 8.4L, Hematocrit 27.3L, Mean Corpuscular Volume 88, Mean Corpuscular Hemoglobin 27.2, Mean Corpuscular Hemoglobin Concent 30.9L, Red Cell Distribution Width 24.9H, Platelet Count 65L, Mean Platelet Volume 8.5, Neutrophils (%) (Auto) , Lymphocytes (%) (Auto) , Monocytes (%) (Auto) , Eosinophils (%) (Auto) , Basophils (%) (Auto) , Differential Total Cells Counted 100, Neutrophils % ( Manual) 97H, Lymphocytes % (Manual) 2L, Monocytes % (Manual) 1, Eosinophils % ( Manual) 0, Basophils % (Manual) 0, Band Neutrophils 0, Platelet Estimate DecreasedL, Platelet Morphology Normal, Polychromasia 1+, Hypochromasia 1+, Anisocytosis 2+, Sodium Level 128L, Potassium Level 3.9, Chloride Level 93L, Carbon Dioxide Level 24, Anion Gap 11, Blood Urea Nitrogen 66H, Creatinine 3.8H , Estimat Glomerular Filtration Rate , Glucose Level 123H, Calcium Level 8.6, Total Bilirubin 3.7H, Direct Bilirubin 3.1H, Aspartate Amino Transf (AST/SGOT) 119H, Alanine Aminotransferase (ALT/SGPT) 84H, Alkaline Phosphatase 248H, Total Protein 5.6L, Albumin 1.3L, Globulin 4.3, Albumin/Globulin Ratio 0.3L, Random Vancomycin Level 20.3 10/30/18 13:05: Arterial Blood pH 7.390, Arterial Blood Partial Pressure CO2 41.3, Arterial Blood Partial Pressure O2 47.4*L, Arterial Blood HCO3 24.4, Arterial Blood Oxygen Saturation 80.9*L, Arterial Blood Base Excess -0.5, Tee Test Positive Height (Feet): 5 Height (Inches): 2.00 Weight (Pounds): 202 Objective WDWN NCAT Neck supple Chest CTA RRR Abd Soft ND NT no edema Tracy Lynn MD Oct 30, 2018 16:03
--- NOTE | 2018-10-30 16:50 | NUR ---
NURSE NOTES: pt in no acute distress. vss. no c/o pain. pt repositioned, levo remains at 18mcg/kg/min . will continue to monitor pt.
--- NOTE | 2018-10-30 19:12 | NUR ---
HAND-OFF: Report given to pito. pt in no acute distress.
--- NOTE | 2018-10-30 19:19 | NUR ---
RESPIRATORY NOTE: Received pt on AC 20, 500VT, 40%, PEEP +5. Pt intubated w/ ETT 7.5 @ 23cm lipline, secured by anchorfast. Pt awake/disoriented, responds to stimuli. Both hands on soft restraints to prevent pt from self-extubation. B/S munira. rhonchi/diminished, sxn small amounts of thick, pink-olvieira secretions w/ occasional red specks. Vent plugged into red outlet, ambubag at bedside. Pt in no apparent distress at this time. Will continue to monitor pt.
[2018-10-30] MEDS: Dyna-Hex 2% Top Sol 2oz TOPIC SCH (19:45)
--- NOTE | 2018-10-30 19:45 | NUR ---
NURSE NOTES: PATIENT OPEN EYES, ABLE TO EYE CONTACT, DENIED PAIN AND FOLLOW COMMAND AT THIS TIME, ON ETT TO VENT AC20/ TV 500/ FIO2 40%/PEEP5, O2 SATURATION 100% NOTED, OGT INTACT AND PATENT, ONGOING NEPRO AT 40ML/HR, RESIDUE 70ML NOTED, ABDOMEN LARGE, ROUND, TENDER, GENERALIZED EDEMA, RECTAL TUBE INTACT AND PATENT, GREENISH BROWN COLOR SOLID STOOL OUTED, PICC LINE TO LEFT UPPER ARM, SLIGHT OOZING, INTACT AND PATENT, ONGOING LEVOPHED 18MCG/HR VIA PICC LINE, ABILIO CATH W/ PIG TAIL TO RIGHT IJ, CLEANED DRESSING STATUS, KEPT HOB OVER 30 DEGREE, ON P200 BED, MADE LOWER BED POSITION, PROVIDED CALL LIGHT WITHIN REACH, WILL CONTINUE TO MONITOR.
[2018-10-30] MEDS: Latanoprost 0.005% Opth 2.5ml Soln BOTH EYES SCH (20:33)
--- NOTE | 2018-10-30 21:50 | NUR ---
NURSE NOTES: CHANGED PICC LINE DRESSING AT 2050PM, ORAL CARE WAS DONE, PATIENT DENIED PAIN AT THIS TIME.
--- NOTE | 2018-10-30 22:21 | Cardiology Progress Note ---
Assessment/Plan Assessment/Plan based on severe generalized swelling, more fluid removal is indicated Subjective Subjective the patient is intubated, alert, trying to communicate Objective Last 24 Hour Vital Signs Date Time Temp Pulse Resp B/P (MAP) Pulse Ox O2 Delivery O2 Flow Rate FiO2 10/30/18 21:04 99 30 40 10/30/18 19:17 94 23 40 10/30/18 18:30 95 21 102/45 (64) 100 10/30/18 18:00 95 21 104/44 (64) 100 10/30/18 17:30 95 20 106/43 (64) 100 10/30/18 17:00 98 22 110/54 (72) 100 10/30/18 16:44 99 29 40 10/30/18 16:30 90 20 110/54 (72) 100 10/30/18 16:00 98.6 90 25 101/54 (70) 100 10/30/18 16:00 Mechanical Ventilator 10/30/18 16:00 40 10/30/18 16:00 97 10/30/18 15:30 96 7 104/50 (68) 100 10/30/18 15:00 96 12 110/49 (69) 100 10/30/18 14:59 97 27 40 10/30/18 14:30 95 2 108/87 (94) 100 10/30/18 14:00 91 0 104/49 (67) 100 10/30/18 13:30 101/54 10/30/18 13:30 90 25 101/54 (70) 100 10/30/18 13:00 90 25 108/50 (69) 100 10/30/18 13:00 88 20 40 10/30/18 12:30 95 8 104/51 (68) 100 10/30/18 12:30 104/51 10/30/18 12:00 40 10/30/18 12:00 98.3 95 25 107/51 (69) 100 10/30/18 12:00 96 10/30/18 12:00 107/51 10/30/18 12:00 Mechanical Ventilator 10/30/18 11:30 101 15 127/57 (80) 100 10/30/18 11:30 127/57 10/30/18 11:00 99 11 85/49 (61) 100 10/30/18 11:00 85/49 10/30/18 10:42 96 29 40 10/30/18 10:30 102 25 108/50 (69) 100 10/30/18 10:30 110/43 10/30/18 10:00 98 19 106/30 (55) 100 10/30/18 10:00 103/45 10/30/18 09:30 109/39 10/30/18 09:30 94 13 100/39 (59) 100 10/30/18 09:20 100 10/30/18 09:20 95 33 40 10/30/18 09:00 97/46 10/30/18 09:00 93 0 102/42 (62) 100 10/30/18 08:30 96 14 102/62 (75) 100 10/30/18 08:25 106/53 10/30/18 08:00 97.3 93 0 110/43 (65) 100 10/30/18 08:00 95 10/30/18 08:00 40 10/30/18 08:00 106/53 10/30/18 08:00 Mechanical Ventilator 10/30/18 07:30 105/43 10/30/18 07:30 94 7 109/45 (66) 100 10/30/18 07:00 94 7 105/57 (73) 100 10/30/18 06:45 93 32 40 10/30/18 06:30 91 20 105/47 (66) 100 10/30/18 06:00 90 20 92/57 (69) 100 10/30/18 06:00 92/57 10/30/18 05:45 91 20 77/31 (46) 100 10/30/18 05:45 77/33 10/30/18 05:30 92 20 100/43 (62) 100 10/30/18 05:15 91 27 40 10/30/18 05:00 97/42 10/30/18 05:00 90 20 97/42 (60) 100 10/30/18 04:30 91 18 91/43 (59) 100 10/30/18 04:00 Mechanical Ventilator 10/30/18 04:00 40 10/30/18 04:00 99/43 10/30/18 04:00 97.6 92 22 99/43 (61) 100 10/30/18 03:30 91 20 99/49 (66) 100 10/30/18 03:24 93 24 40 10/30/18 03:04 91 10/30/18 03:00 92 20 99/47 (64) 100 10/30/18 03:00 99/47 10/30/18 02:30 91 20 95/45 (62) 100 10/30/18 02:00 92 13 101/40 (60) 100 10/30/18 02:00 95/41 10/30/18 01:30 93 20 98/38 (58) 100 10/30/18 01:29 94 29 40 10/30/18 01:00 98/48 10/30/18 01:00 92 20 98/48 (65) 100 10/30/18 00:30 94 20 103/44 (63) 100 10/30/18 00:30 103/44 10/30/18 00:00 97.9 91 13 59/32 (41) 100 10/30/18 00:00 91 10/30/18 00:00 59/32 10/30/18 00:00 Mechanical Ventilator 10/30/18 00:00 40 10/29/18 23:30 88 20 97/35 (55) 100 10/29/18 23:29 93 31 40 10/29/18 23:00 88 20 88/47 (61) 100 10/29/18 23:00 88/47 10/29/18 22:30 88 23 96/41 (59) 100 General Appearance: on vent EENT: PERRL/EOMI Neck: JVD Rhythm: NSR, other - PVC Cardiovascular: regular rhythm Respiratory/Chest: crackles/rales Abdomen: other - severe generaslied edema Extremities: severe edema, other Intake and Output 10/29/18 10/30/18 19:00 07:00 Intake Total 508.12 ml 1088.23 ml Output Total 100 ml 300 ml Balance 408.12 ml 788.23 ml Free Water 100 ml IV Total 28.12 ml 508.23 ml Tube Feeding 480 ml 480 ml Stool Total 100 ml 300 ml Laboratory Tests Test 10/30/18 05:30 10/30/18 13:05 White Blood Count 15.1 K/UL (4.8-10.8) H Red Blood Count 3.10 M/UL (4.70-6.10) L Hemoglobin 8.4 G/DL (14.2-18.0) L Hematocrit 27.3 % (42.0-52.0) L Mean Corpuscular Volume 88 FL (80-99) Mean Corpuscular Hemoglobin 27.2 PG (27.0-31.0) Mean Corpuscular Hemoglobin Concent 30.9 G/DL (32.0-36.0) L Red Cell Distribution Width 24.9 % (11.6-14.8) H Platelet Count 65 K/UL (150-450) L Mean Platelet Volume 8.5 FL (6.5-10.1) Neutrophils (%) (Auto) % (45.0-75.0) Lymphocytes (%) (Auto) % (20.0-45.0) Monocytes (%) (Auto) % (1.0-10.0) Eosinophils (%) (Auto) % (0.0-3.0) Basophils (%) (Auto) % (0.0-2.0) Differential Total Cells Counted 100 Neutrophils % (Manual) 97 % (45-75) H Lymphocytes % (Manual) 2 % (20-45) L Monocytes % (Manual) 1 % (1-10) Eosinophils % (Manual) 0 % (0-3) Basophils % (Manual) 0 % (0-2) Band Neutrophils 0 % (0-8) Platelet Estimate Decreased L Platelet Morphology Normal Polychromasia 1+ Hypochromasia 1+ Anisocytosis 2+ Sodium Level 128 MMOL/L (136-145) L Potassium Level 3.9 MMOL/L (3.5-5.1) Chloride Level 93 MMOL/L (98-107) L Carbon Dioxide Level 24 MMOL/L (21-32) Anion Gap 11 mmol/L (5-15) Blood Urea Nitrogen 66 mg/dL (7-18) H Creatinine 3.8 MG/DL (0.55-1.30) H Estimat Glomerular Filtration Rate mL/min (>60) Glucose Level 123 MG/DL (74-106) H Calcium Level 8.6 MG/DL (8.5-10.1) Total Bilirubin 3.7 MG/DL (0.2-1.0) H Direct Bilirubin 3.1 MG/DL (0.0-0.3) H Aspartate Amino Transf (AST/SGOT) 119 U/L (15-37) H Alanine Aminotransferase (ALT/SGPT) 84 U/L (12-78) H Alkaline Phosphatase 248 U/L (46-116) H Total Protein 5.6 G/DL (6.4-8.2) L Albumin 1.3 G/DL (3.4-5.0) L Globulin 4.3 g/dL Albumin/Globulin Ratio 0.3 (1.0-2.7) L Random Vancomycin Level 20.3 ug/mL Arterial Blood pH 7.390 (7.350-7.450) Arterial Blood Partial Pressure CO2 41.3 mmHg (35.0-45.0) Arterial Blood Partial Pressure O2 47.4 mmHg (75.0-100.0) Arterial Blood HCO3 24.4 mmol/L (22.0-26.0) Arterial Blood Oxygen Saturation 80.9 % (95-100) *L Arterial Blood Base Excess -0.5 (-2-2) Tee Test Positive Microbiology Date/Time Source Procedure Growth Status 10/30/18 03:30 Sputum Induced Gram Stain - Final Resulted 10/30/18 03:30 Sputum Induced Sputum Culture Pending Resulted Brooklyn Juarez MD Oct 30, 2018 22:21
[2018-10-31] VITALS (48 sets, daily range): BP systolic 72–118; BP diastolic 30–85
--- NOTE | 2018-10-31 | NUR ---
NURSE NOTES: REPOSITIONED, WEEPING FROM ALL EXTREMITIES, WILL CONTINUE TO MONITOR.
[2018-10-31] MEDS: Norepinephrine Bitartrate 16 MG in D5W 500ml 484 ML IV SCH ×3 (00:07→23:28)
--- NOTE | 2018-10-31 02:20 | NUR ---
NURSE NOTES: ONGOING LEVOPHED 18MCG/MIN, PATIENT ASLEEP STATUS, WILL CONTINUE PLAN OF CARE.
--- NOTE | 2018-10-31 04:00 | NUR ---
NURSE NOTES: MORNING CARE AND ORAL CARE WAS DONE, OGT INTACT AND PATENT, RESIDUE 100ML NOTED, HOLD FEEDING AT THIS TIME, WILL CONTINUE TO MONITOR.
[2018-10-31] MEDS: NovoLOG Insulin Flexpen SUBQ SCH ×4 (05:32→23:31)
--- NOTE | 2018-10-31 06:16 | NUR ---
NURSE NOTES: OGT INTACT, RESIDUE 80ML NOTED, START FEEDING ORDERED, KEPT HOB OVER 30 DEGREE, WILL CONTINUE TO MONITOR.
[2018-10-31 06:42] LABS: ANION GAP 13 mmol/L (5-15); BLOOD UREA NITROGEN 81 mg/dL (7-18); CALCIUM 8.6 MG/DL (8.5-10.1); CARBON DIOXIDE 21 MMOL/L (21-32); CHLORIDE 92 MMOL/L (98-107); CREATININE 4.1 MG/DL (0.55-1.30); POTASSIUM 4.7 MMOL/L (3.5-5.1); SODIUM 126 MMOL/L (136-145)
--- NOTE | 2018-10-31 07:00 | NUR ---
Received Patient on Vent settings of ACVC RR 20, VT 500, Fio2 40%, PEEP +5. Patient intubated with a 7.5 ETT at 23 cm at the lip, secured with anchorfast. Bilateral rhonchi heard upon auscultation. Suction thin white/ clear secretions as needed. Patient obtundent. Alarms on and audible. Vent plugged into red outlet. Ambu Bag at beside. Will continue to monitor throughout the day.
--- NOTE | 2018-10-31 07:02 | NUR ---
HAND-OFF: Report given to JACQUI ELLISON.
--- NOTE | 2018-10-31 07:23 | NUR ---
NURSE NOTES: Received report from Tello RN. Pt asleep but arousable, alert and oriented x 1-2. Pt able to follow simple commands. Pt on unit support representative, SR. Pt orally intubated ETT 7.5, 23 cm lip line, AC 20, TV 500, 40% FIO2, PEEP 5. OGT with nepro at 40 cc/hr. Rectal tube intact draining brown liquid stool to gravity. KIM PICC intact and RIJ cem intact. Levophed running at 18 mcg/hr. Safety measures in place with bed locked and in lowest position, side rails x3 up and bed alarm on. Will continue to monitor and continue plan of care.
--- NOTE | 2018-10-31 07:50 | Nephrology Progress Note ---
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 Tricuspid systolic velocities suggests peak right ventricular systolic pressure of 54 mmHg,consistent with moderate pulmonary hypertension . EF 35%, however severe MR thus anticipate EF % much lower - per cardiology 3) Resp FL- intubated on vent 4) Hyponatremia- Na down to 126. Monitor, UF with HD today Subjective Date patient seen: Oct 31, 2018 Time patient seen: 07:49 ROS Limited/Unobtainable: Yes Allergies: Coded Allergies: PENICILLINS (Verified Allergy, Unknown, 10/09/18) All Systems: reviewed and negative except above Subjective Patient intubated on vent and pressor Objective Last 24 Hour Vital Signs Date Time Temp Pulse Resp B/P (MAP) Pulse Ox O2 Delivery O2 Flow Rate FiO2 10/31/18 07:30 95 4 108/45 (66) 100 10/31/18 07:00 91 24 40 10/31/18 07:00 91 4 72/53 (59) 100 10/31/18 06:30 93 20 101/71 (81) 100 10/31/18 06:00 88/44 10/31/18 06:00 93 20 88/44 (59) 100 10/31/18 05:30 90 20 96/50 (65) 100 10/31/18 05:27 90 22 40 10/31/18 05:00 99/42 10/31/18 05:00 91 20 99/42 (61) 100 10/31/18 04:30 90 20 108/60 (76) 100 10/31/18 04:00 98.1 94 20 100/54 (69) 100 10/31/18 04:00 Mechanical Ventilator 10/31/18 04:00 100/54 10/31/18 04:00 40 10/31/18 03:30 97 15 100/53 (69) 100 10/31/18 03:05 93 23 40 10/31/18 03:01 92 10/31/18 03:00 93 20 94/57 (69) 100 10/31/18 03:00 94/57 10/31/18 02:30 93 20 98/51 (67) 100 10/31/18 02:00 93 20 106/45 (65) 100 10/31/18 02:00 106/45 10/31/18 01:30 93 20 111/57 (75) 100 10/31/18 01:03 93 23 40 10/31/18 01:00 93 20 110/46 (67) 100 10/31/18 01:00 110/46 10/31/18 00:30 93 20 103/41 (61) 100 10/31/18 00:07 99/39 10/31/18 00:00 97.9 89 20 99/39 (59) 100 10/31/18 00:00 Mechanical Ventilator 10/31/18 00:00 40 10/30/18 23:30 97 20 95/56 (69) 100 10/30/18 23:17 99 10/30/18 23:00 101/54 10/30/18 23:00 103 16 101/54 (70) 100 10/30/18 22:59 104 24 40 10/30/18 22:30 99 20 109/48 (68) 100 10/30/18 22:00 106/43 10/30/18 22:00 99 20 106/43 (64) 100 10/30/18 21:30 96 20 108/45 (66) 100 10/30/18 21:04 99 30 40 10/30/18 21:00 98 20 120/38 (65) 100 10/30/18 21:00 120/38 10/30/18 20:30 96 20 107/51 (69) 100 10/30/18 20:00 117/91 10/30/18 20:00 Mechanical Ventilator 10/30/18 20:00 98.7 95 20 117/91 (100) 100 10/30/18 20:00 40 10/30/18 19:30 94 20 103/55 (71) 100 10/30/18 19:19 99 10/30/18 19:17 94 23 40 10/30/18 19:00 99/52 10/30/18 19:00 94 20 99/52 (68) 100 10/30/18 18:30 95 21 102/45 (64) 100 10/30/18 18:00 95 21 104/44 (64) 100 10/30/18 17:30 95 20 106/43 (64) 100 10/30/18 17:00 98 22 110/54 (72) 100 10/30/18 16:44 99 29 40 10/30/18 16:30 90 20 110/54 (72) 100 10/30/18 16:00 98.6 90 25 101/54 (70) 100 10/30/18 16:00 Mechanical Ventilator 10/30/18 16:00 40 10/30/18 16:00 97 10/30/18 15:30 96 7 104/50 (68) 100 10/30/18 15:00 96 12 110/49 (69) 100 10/30/18 14:59 97 27 40 10/30/18 14:30 95 2 108/87 (94) 100 10/30/18 14:00 91 0 104/49 (67) 100 10/30/18 13:30 101/54 10/30/18 13:30 90 25 101/54 (70) 100 10/30/18 13:00 90 25 108/50 (69) 100 10/30/18 13:00 88 20 40 10/30/18 12:30 95 8 104/51 (68) 100 10/30/18 12:30 104/51 10/30/18 12:00 40 10/30/18 12:00 98.3 95 25 107/51 (69) 100 10/30/18 12:00 96 10/30/18 12:00 107/51 10/30/18 12:00 Mechanical Ventilator 10/30/18 11:30 101 15 127/57 (80) 100 10/30/18 11:30 127/57 10/30/18 11:00 99 11 85/49 (61) 100 10/30/18 11:00 85/49 10/30/18 10:42 96 29 40 10/30/18 10:30 102 25 108/50 (69) 100 10/30/18 10:30 110/43 10/30/18 10:00 98 19 106/30 (55) 100 10/30/18 10:00 103/45 10/30/18 09:30 109/39 10/30/18 09:30 94 13 100/39 (59) 100 10/30/18 09:20 100 10/30/18 09:20 95 33 40 10/30/18 09:00 97/46 10/30/18 09:00 93 0 102/42 (62) 100 10/30/18 08:30 96 14 102/62 (75) 100 10/30/18 08:25 106/53 10/30/18 08:00 97.3 93 0 110/43 (65) 100 10/30/18 08:00 95 10/30/18 08:00 40 10/30/18 08:00 106/53 10/30/18 08:00 Mechanical Ventilator Intake and Output 10/30/18 10/31/18 19:00 07:00 Intake Total 1171.25 ml 941.24 ml Output Total 400 ml Balance 771.25 ml 941.24 ml Free Water 50 ml IV Total 641.25 ml 551.24 ml Tube Feeding 480 ml 390 ml Stool Total 400 ml # Voids 3 1 # Bowel Movements 50 Laboratory Tests 10/30/18 13:05: Arterial Blood pH 7.390, Arterial Blood Partial Pressure CO2 41.3, Arterial Blood Partial Pressure O2 47.4*L, Arterial Blood HCO3 24.4, Arterial Blood Oxygen Saturation 80.9*L, Arterial Blood Base Excess -0.5, Tee Test Positive 10/31/18 05:10: Sodium Level 126L, Potassium Level 4.7, Chloride Level 92L, Carbon Dioxide Level 21, Anion Gap 13, Blood Urea Nitrogen 81H, Creatinine 4.1H, Estimat Glomerular Filtration Rate , Glucose Level 156H, Calcium Level 8.6 Height (Feet): 5 Height (Inches): 2.00 Weight (Pounds): 203 General Appearance: no apparent distress, alert EENT: normal ENT inspection Neck: normal alignment, supple Cardiovascular: normal rate, regular rhythm Respiratory/Chest: rhonchi - bilaterally Abdomen: non tender, soft Edema: 2+ Arm (L), 2+ Arm (R), 2+ Leg (L), 2+ Leg (R), 2+ Pedal (L), 2+ Pedal ( R), 2+ Generalized Aric Rodriguez MD Oct 31, 2018 07:50
--- NOTE | 2018-10-31 07:59 | General Progress Note ---
Assessment/Plan Problem List: (1) CKD (chronic kidney disease) ICD Codes: N18.9 - Chronic kidney disease, unspecified SNOMED: 563184410 (2) Hypoglycemia ICD Codes: E16.2 - Hypoglycemia, unspecified SNOMED: 329908370 (3) Altered mental status ICD Codes: R41.82 - Altered mental status, unspecified SNOMED: 606340331 (4) Ventilator dependence ICD Codes: Z99.11 - Dependence on respirator [ventilator] status SNOMED: 506887118 (5) Hyponatremia ICD Codes: E87.1 - Hypo-osmolality and hyponatremia SNOMED: 79948785 Assessment/Plan glucose values are stable continue glucose monitoring every 6 hours - low dose Novolog coverage hypoglycemia protocol in order Subjective Allergies: Coded Allergies: PENICILLINS (Verified Allergy, Unknown, 10/09/18) Subjective events noted TF resumed Item Value Date Time Bedside Blood Glucose 174 mg/dl H 10/31/18 0532 Bedside Blood Glucose 126 mg/dl H 10/30/18 2332 Bedside Blood Glucose 122 mg/dl H 10/30/18 1744 Bedside Blood Glucose 136 mg/dl H 10/30/18 1300 Bedside Blood Glucose 123 mg/dl H 10/30/18 0900 Bedside Blood Glucose 124 mg/dl H 10/30/18 0445 Objective Last 24 Hour Vital Signs Date Time Temp Pulse Resp B/P (MAP) Pulse Ox O2 Delivery O2 Flow Rate FiO2 10/31/18 07:30 95 4 108/45 (66) 100 10/31/18 07:00 91 24 40 10/31/18 07:00 91 4 72/53 (59) 100 10/31/18 06:30 93 20 101/71 (81) 100 10/31/18 06:00 88/44 10/31/18 06:00 93 20 88/44 (59) 100 10/31/18 05:30 90 20 96/50 (65) 100 10/31/18 05:27 90 22 40 10/31/18 05:00 99/42 10/31/18 05:00 91 20 99/42 (61) 100 10/31/18 04:30 90 20 108/60 (76) 100 10/31/18 04:00 98.1 94 20 100/54 (69) 100 10/31/18 04:00 Mechanical Ventilator 10/31/18 04:00 100/54 10/31/18 04:00 40 10/31/18 03:30 97 15 100/53 (69) 100 10/31/18 03:05 93 23 40 10/31/18 03:01 92 10/31/18 03:00 93 20 94/57 (69) 100 10/31/18 03:00 94/57 10/31/18 02:30 93 20 98/51 (67) 100 10/31/18 02:00 93 20 106/45 (65) 100 10/31/18 02:00 106/45 10/31/18 01:30 93 20 111/57 (75) 100 10/31/18 01:03 93 23 40 10/31/18 01:00 93 20 110/46 (67) 100 10/31/18 01:00 110/46 10/31/18 00:30 93 20 103/41 (61) 100 10/31/18 00:07 99/39 10/31/18 00:00 97.9 89 20 99/39 (59) 100 10/31/18 00:00 Mechanical Ventilator 10/31/18 00:00 40 10/30/18 23:30 97 20 95/56 (69) 100 10/30/18 23:17 99 10/30/18 23:00 101/54 10/30/18 23:00 103 16 101/54 (70) 100 10/30/18 22:59 104 24 40 10/30/18 22:30 99 20 109/48 (68) 100 10/30/18 22:00 106/43 10/30/18 22:00 99 20 106/43 (64) 100 10/30/18 21:30 96 20 108/45 (66) 100 10/30/18 21:04 99 30 40 10/30/18 21:00 98 20 120/38 (65) 100 10/30/18 21:00 120/38 10/30/18 20:30 96 20 107/51 (69) 100 10/30/18 20:00 117/91 10/30/18 20:00 Mechanical Ventilator 10/30/18 20:00 98.7 95 20 117/91 (100) 100 10/30/18 20:00 40 10/30/18 19:30 94 20 103/55 (71) 100 10/30/18 19:19 99 10/30/18 19:17 94 23 40 10/30/18 19:00 99/52 10/30/18 19:00 94 20 99/52 (68) 100 10/30/18 18:30 95 21 102/45 (64) 100 10/30/18 18:00 95 21 104/44 (64) 100 10/30/18 17:30 95 20 106/43 (64) 100 10/30/18 17:00 98 22 110/54 (72) 100 10/30/18 16:44 99 29 40 10/30/18 16:30 90 20 110/54 (72) 100 10/30/18 16:00 98.6 90 25 101/54 (70) 100 10/30/18 16:00 Mechanical Ventilator 10/30/18 16:00 40 10/30/18 16:00 97 10/30/18 15:30 96 7 104/50 (68) 100 10/30/18 15:00 96 12 110/49 (69) 100 10/30/18 14:59 97 27 40 10/30/18 14:30 95 2 108/87 (94) 100 10/30/18 14:00 91 0 104/49 (67) 100 10/30/18 13:30 101/54 10/30/18 13:30 90 25 101/54 (70) 100 10/30/18 13:00 90 25 108/50 (69) 100 10/30/18 13:00 88 20 40 10/30/18 12:30 95 8 104/51 (68) 100 10/30/18 12:30 104/51 10/30/18 12:00 40 10/30/18 12:00 98.3 95 25 107/51 (69) 100 10/30/18 12:00 96 10/30/18 12:00 107/51 10/30/18 12:00 Mechanical Ventilator 10/30/18 11:30 101 15 127/57 (80) 100 10/30/18 11:30 127/57 10/30/18 11:00 99 11 85/49 (61) 100 10/30/18 11:00 85/49 10/30/18 10:42 96 29 40 10/30/18 10:30 102 25 108/50 (69) 100 10/30/18 10:30 110/43 10/30/18 10:00 98 19 106/30 (55) 100 10/30/18 10:00 103/45 10/30/18 09:30 109/39 10/30/18 09:30 94 13 100/39 (59) 100 10/30/18 09:20 100 10/30/18 09:20 95 33 40 10/30/18 09:00 97/46 10/30/18 09:00 93 0 102/42 (62) 100 10/30/18 08:30 96 14 102/62 (75) 100 10/30/18 08:25 106/53 10/30/18 08:00 97.3 93 0 110/43 (65) 100 10/30/18 08:00 95 10/30/18 08:00 40 10/30/18 08:00 106/53 10/30/18 08:00 Mechanical Ventilator Intake and Output 10/30/18 10/31/18 19:00 07:00 Intake Total 1171.25 ml 941.24 ml Output Total 400 ml Balance 771.25 ml 941.24 ml Free Water 50 ml IV Total 641.25 ml 551.24 ml Tube Feeding 480 ml 390 ml Stool Total 400 ml # Voids 3 1 # Bowel Movements 50 Laboratory Tests 10/30/18 13:05: Arterial Blood pH 7.390, Arterial Blood Partial Pressure CO2 41.3, Arterial Blood Partial Pressure O2 47.4*L, Arterial Blood HCO3 24.4, Arterial Blood Oxygen Saturation 80.9*L, Arterial Blood Base Excess -0.5, Tee Test Positive 10/31/18 05:10: Sodium Level 126L, Potassium Level 4.7, Chloride Level 92L, Carbon Dioxide Level 21, Anion Gap 13, Blood Urea Nitrogen 81H, Creatinine 4.1H, Estimat Glomerular Filtration Rate , Glucose Level 156H, Calcium Level 8.6 Height (Feet): 5 Height (Inches): 2.00 Weight (Pounds): 203 Neck: normal alignment Cardiovascular: normal rate Respiratory/Chest: decreased breath sounds Abdomen: normal bowel sounds Pelvis: normal external exam Objective Current Medications Medications (Trade) Dose Ordered Sig/Ashely Route PRN Reason Start Time Stop Time Status Last Admin Dose Admin Aspirin (Ecotrin) 81 mg DAILY ORAL 10/19/18 09:00 11/09/18 08:59 10/30/18 08:26 Calcium Carbonate (Tums) 500 mg BID GT 10/20/18 18:00 11/09/18 08:59 10/30/18 17:42 Chlorhexidine Gluconate (Anai-Hex 2%) 1 applic DAILY@2000 TOPIC 10/18/18 20:00 11/12/18 19:59 10/30/18 19:45 Dextrose (Dextrose 50%) 25 ml Q30M PRN IV Hypoglycemia 10/23/18 08:15 11/22/18 08:14 Dextrose (Dextrose 50%) 50 ml Q30M PRN IV Hypoglycemia 10/23/18 08:15 11/22/18 08:14 Dobutamine HCl 250 ml @ 10.05 mls/ hr Q24H IV 10/19/18 11:40 11/18/18 11:39 10/22/18 12:43 Dopamine HCl/ Dextrose 250 ml @ 0 mls/hr Q24H IV 10/19/18 12:45 11/18/18 12:44 10/20/18 17:43 Fluconazole/ Sodium Chloride 100 ml @ 100 mls/hr Q24H IV 10/28/18 20:00 11/04/18 19:59 10/30/18 19:46 Haloperidol Lactate (Haldol) 5 mg Q6H PRN IM Agitation 10/18/18 17:00 11/17/18 16:59 Insulin Aspart (NovoLOG) EVERY 6 HOURS SUBQ 10/30/18 12:00 11/22/18 08:59 10/31/18 05:32 Latanoprost (Xalatan) 1 drop BEDTIME BOTH EYES 10/18/18 21:00 11/10/18 20:59 10/30/18 20:33 Loperamide HCl (Imodium) 2 mg Q4H PRN ORAL Diarrhea 10/27/18 09:45 11/26/18 09:44 Meropenem 500 mg/ Sodium Chloride 50 ml @ 100 mls/hr Q24HRS IVPB 10/29/18 00:00 11/03/18 00:00 10/30/18 23:29 Midodrine (Pro-Amatine) 5 mg THREE TIMES A DAY ORAL 10/30/18 13:00 11/29/18 08:59 10/30/18 17:42 Norepinephrine Bitartrate 16 mg/ Dextrose 500 ml @ 0 mls/hr Q24H IV 10/20/18 18:00 11/19/18 17:59 10/31/18 00:07 Ondansetron HCl (Zofran) 4 mg Q8H PRN IVP Nausea & Vomiting 10/18/18 17:00 11/17/18 16:59 Promethazine HCl (Phenergan Plain) 6.25 mg Q6H PRN ORAL For Cough 10/18/18 16:45 11/10/18 04:32 Vancomycin HCl (Vanco rx to dose) 1 ea DAILY PRN MISC Per rx protocol 10/19/18 23:30 11/18/18 23:29 Vasopressin 100 units/Sodium Chloride 100 ml @ 2.4 mls/hr Q24H IV 10/22/18 15:00 11/21/18 14:59 10/25/18 15:13 Barry Schmitt MD Oct 31, 2018 07:59
--- NOTE | 2018-10-31 07:59 | NUR ---
NURSE NOTES: Dr Solis came to see pt, ordered dialysis for today. Called [facility] to schedule pt.
[2018-10-31] MEDS: Tums 500mg GT SCH ×2 (08:18→17:21)
[2018-10-31] MEDS: Aspirin EC 81mg tab ORAL SCH (08:18)
--- NOTE | 2018-10-31 09:07 | NUR ---
Weaning started. Patient placed on PS 8 PEEP +5 FIO2 40%. Will continue to monitor.
--- NOTE | 2018-10-31 09:09 | NUR ---
Weaning Failed. Patient RR >45, VT<150. WOB increased. Placed back on previous settings.
--- NOTE | 2018-10-31 09:12 | Urology Progress Note ---
Assessment/Plan Assessment/Plan 1. Renal failure, which is acute on chronic. 2. Right-sided hydronephrosis. 3. Renal cyst. 4. Scrotal edema. 5. History of prostate cancer, status post radical prostatectomy. monitor renal fxn consider right ureteral stent or nephrostomy scrotal elevation consider cooper cath abx as ordered Subjective Allergies: Coded Allergies: PENICILLINS (Verified Allergy, Unknown, 10/09/18) Subjective vent, non-verbal Objective Last 24 Hour Vital Signs Date Time Temp Pulse Resp B/P (MAP) Pulse Ox O2 Delivery O2 Flow Rate FiO2 10/31/18 09:10 100 10/31/18 09:00 96 18 112/52 (72) 100 10/31/18 08:30 96 10 107/57 (74) 100 10/31/18 08:00 Mechanical Ventilator 10/31/18 08:00 98.7 94 4 110/42 (64) 100 10/31/18 08:00 40 10/31/18 07:30 95 4 108/45 (66) 100 10/31/18 07:00 91 24 40 10/31/18 07:00 91 4 72/53 (59) 100 10/31/18 06:30 93 20 101/71 (81) 100 10/31/18 06:00 88/44 10/31/18 06:00 93 20 88/44 (59) 100 10/31/18 05:30 90 20 96/50 (65) 100 10/31/18 05:27 90 22 40 10/31/18 05:00 99/42 10/31/18 05:00 91 20 99/42 (61) 100 10/31/18 04:30 90 20 108/60 (76) 100 10/31/18 04:00 98.1 94 20 100/54 (69) 100 10/31/18 04:00 Mechanical Ventilator 10/31/18 04:00 100/54 10/31/18 04:00 40 10/31/18 03:30 97 15 100/53 (69) 100 10/31/18 03:05 93 23 40 10/31/18 03:01 92 10/31/18 03:00 93 20 94/57 (69) 100 10/31/18 03:00 94/57 10/31/18 02:30 93 20 98/51 (67) 100 10/31/18 02:00 93 20 106/45 (65) 100 10/31/18 02:00 106/45 10/31/18 01:30 93 20 111/57 (75) 100 10/31/18 01:03 93 23 40 10/31/18 01:00 93 20 110/46 (67) 100 10/31/18 01:00 110/46 10/31/18 00:30 93 20 103/41 (61) 100 10/31/18 00:07 99/39 10/31/18 00:00 97.9 89 20 99/39 (59) 100 10/31/18 00:00 Mechanical Ventilator 10/31/18 00:00 40 10/30/18 23:30 97 20 95/56 (69) 100 10/30/18 23:17 99 10/30/18 23:00 101/54 10/30/18 23:00 103 16 101/54 (70) 100 10/30/18 22:59 104 24 40 10/30/18 22:30 99 20 109/48 (68) 100 10/30/18 22:00 106/43 10/30/18 22:00 99 20 106/43 (64) 100 10/30/18 21:30 96 20 108/45 (66) 100 10/30/18 21:04 99 30 40 10/30/18 21:00 98 20 120/38 (65) 100 10/30/18 21:00 120/38 10/30/18 20:30 96 20 107/51 (69) 100 10/30/18 20:00 117/91 10/30/18 20:00 Mechanical Ventilator 10/30/18 20:00 98.7 95 20 117/91 (100) 100 10/30/18 20:00 40 10/30/18 19:30 94 20 103/55 (71) 100 10/30/18 19:19 99 10/30/18 19:17 94 23 40 10/30/18 19:00 99/52 10/30/18 19:00 94 20 99/52 (68) 100 10/30/18 18:30 95 21 102/45 (64) 100 10/30/18 18:00 95 21 104/44 (64) 100 10/30/18 17:30 95 20 106/43 (64) 100 10/30/18 17:00 98 22 110/54 (72) 100 10/30/18 16:44 99 29 40 10/30/18 16:30 90 20 110/54 (72) 100 10/30/18 16:00 98.6 90 25 101/54 (70) 100 10/30/18 16:00 Mechanical Ventilator 10/30/18 16:00 40 10/30/18 16:00 97 10/30/18 15:30 96 7 104/50 (68) 100 10/30/18 15:00 96 12 110/49 (69) 100 10/30/18 14:59 97 27 40 10/30/18 14:30 95 2 108/87 (94) 100 10/30/18 14:00 91 0 104/49 (67) 100 10/30/18 13:30 101/54 10/30/18 13:30 90 25 101/54 (70) 100 10/30/18 13:00 90 25 108/50 (69) 100 10/30/18 13:00 88 20 40 10/30/18 12:30 95 8 104/51 (68) 100 10/30/18 12:30 104/51 10/30/18 12:00 40 10/30/18 12:00 98.3 95 25 107/51 (69) 100 10/30/18 12:00 96 10/30/18 12:00 107/51 10/30/18 12:00 Mechanical Ventilator 10/30/18 11:30 101 15 127/57 (80) 100 10/30/18 11:30 127/57 10/30/18 11:00 99 11 85/49 (61) 100 10/30/18 11:00 85/49 10/30/18 10:42 96 29 40 10/30/18 10:30 102 25 108/50 (69) 100 10/30/18 10:30 110/43 10/30/18 10:00 98 19 106/30 (55) 100 10/30/18 10:00 103/45 10/30/18 09:30 109/39 10/30/18 09:30 94 13 100/39 (59) 100 10/30/18 09:20 100 10/30/18 09:20 95 33 40 Intake and Output 10/30/18 10/31/18 18:59 06:59 Intake Total 1171.25 ml 951.24 ml Output Total 400 ml Balance 771.25 ml 951.24 ml Free Water 50 ml IV Total 641.25 ml 551.24 ml Tube Feeding 480 ml 400 ml Stool Total 400 ml # Voids 3 1 Microbiology Date/Time Source Procedure Growth Status 10/20/18 06:10 Blood Blood Culture - Final NO GROWTH AFTER 5 DAYS Complete 10/30/18 03:30 Sputum Induced Gram Stain - Final Resulted 10/30/18 03:30 Sputum Induced Sputum Culture Pending Resulted 10/24/18 01:35 Stool Clostridium difficile Toxin Assay - Final Complete Current Medications Medications (Trade) Dose Ordered Sig/Ashely Route PRN Reason Start Time Stop Time Status Last Admin Dose Admin Aspirin (Ecotrin) 81 mg DAILY ORAL 10/19/18 09:00 11/09/18 08:59 10/30/18 08:26 Calcium Carbonate (Tums) 500 mg BID GT 10/20/18 18:00 11/09/18 08:59 10/31/18 08:18 Chlorhexidine Gluconate (Anai-Hex 2%) 1 applic DAILY@2000 TOPIC 10/18/18 20:00 11/12/18 19:59 10/30/18 19:45 Dextrose (Dextrose 50%) 25 ml Q30M PRN IV Hypoglycemia 10/23/18 08:15 11/22/18 08:14 Dextrose (Dextrose 50%) 50 ml Q30M PRN IV Hypoglycemia 10/23/18 08:15 11/22/18 08:14 Dobutamine HCl 250 ml @ 10.05 mls/ hr Q24H IV 10/19/18 11:40 11/18/18 11:39 10/22/18 12:43 Dopamine HCl/ Dextrose 250 ml @ 0 mls/hr Q24H IV 10/19/18 12:45 11/18/18 12:44 10/20/18 17:43 Fluconazole/ Sodium Chloride 100 ml @ 100 mls/hr Q24H IV 10/28/18 20:00 11/04/18 19:59 10/30/18 19:46 Haloperidol Lactate (Haldol) 5 mg Q6H PRN IM Agitation 10/18/18 17:00 11/17/18 16:59 Insulin Aspart (NovoLOG) EVERY 6 HOURS SUBQ 10/30/18 12:00 11/22/18 08:59 10/31/18 05:32 Latanoprost (Xalatan) 1 drop BEDTIME BOTH EYES 10/18/18 21:00 11/10/18 20:59 10/30/18 20:33 Loperamide HCl (Imodium) 2 mg Q4H PRN ORAL Diarrhea 10/27/18 09:45 11/26/18 09:44 Meropenem 500 mg/ Sodium Chloride 50 ml @ 100 mls/hr Q24HRS IVPB 10/29/18 00:00 11/03/18 00:00 10/30/18 23:29 Midodrine (Pro-Amatine) 5 mg THREE TIMES A DAY ORAL 10/30/18 13:00 11/29/18 08:59 10/31/18 08:18 Norepinephrine Bitartrate 16 mg/ Dextrose 500 ml @ 0 mls/hr Q24H IV 10/20/18 18:00 11/19/18 17:59 10/31/18 00:07 Ondansetron HCl (Zofran) 4 mg Q8H PRN IVP Nausea & Vomiting 10/18/18 17:00 11/17/18 16:59 Promethazine HCl (Phenergan Plain) 6.25 mg Q6H PRN ORAL For Cough 10/18/18 16:45 11/10/18 04:32 Vancomycin HCl (Vanco rx to dose) 1 ea DAILY PRN MISC Per rx protocol 10/19/18 23:30 11/18/18 23:29 Vancomycin HCl 1 gm/Dextrose 275 ml @ 183.708 mls/hr ONCE ONCE IVPB 10/31/18 21:00 10/31/18 22:29 Vasopressin 100 units/Sodium Chloride 100 ml @ 2.4 mls/hr Q24H IV 10/22/18 15:00 11/21/18 14:59 10/25/18 15:13 Laboratory Tests 10/30/18 13:05: Arterial Blood pH 7.390, Arterial Blood Partial Pressure CO2 41.3, Arterial Blood Partial Pressure O2 47.4*L, Arterial Blood HCO3 24.4, Arterial Blood Oxygen Saturation 80.9*L, Arterial Blood Base Excess -0.5, Tee Test Positive 10/31/18 05:10: Sodium Level 126L, Potassium Level 4.7, Chloride Level 92L, Carbon Dioxide Level 21, Anion Gap 13, Blood Urea Nitrogen 81H, Creatinine 4.1H, Estimat Glomerular Filtration Rate , Glucose Level 156H, Calcium Level 8.6 Height (Feet): 5 Height (Inches): 2.00 Weight (Pounds): 203 Objective exam stable Aaron Eduardo MD Oct 31, 2018 09:12
[2018-10-31] MEDS ORDERED: Tubing IV Secondary IV ONE (09:51)
[2018-10-31] MEDS ORDERED: NS 275ml ONE (09:51)
--- NOTE | 2018-10-31 10:03 | NUR ---
NURSE NOTES: Dr Ferreira here to see pt. No new orders. No acute distress. Will continue to monitor.
--- NOTE | 2018-10-31 10:25 | NUR ---
CASE MANAGEMENT: REVIEW SI: ACUTE RESP FAILURE . RENAL FAILURE . CHF T 98.7 HR 101 RR 38 BP 72/53 SAT 100% MECH VENT FIO2 40 WBC 15.1 H/H 8.4/27.3 NA 126 BUN 81 CR 4.1 IS: DOBUTAMINE GTT DOPAMINE GTT LEVOPHED GTT VASOPRESSIN IV Q24HR MEROPENEM IV Q24HR DIFLUCAN IV Q24HR HEMODIALYSIS PRN NPO ICU STATUS DCP: PATIENT IS FROM HOME
--- NOTE | 2018-10-31 10:30 | NUR ---
NURSE NOTES: Rah OSMAN from [facility] dialysis called back and said dialysis will be later in the afternoon/evening. Will continue to monitor.
--- NOTE | 2018-10-31 10:34 | Pulmonolgy Critical Care Note ---
Critical Care - Asmt/Plan Problems: (1) Respiratory failure, acute (2) Ventilator dependence (3) CHF (congestive heart failure) (4) CAD (coronary artery disease) (5) NSTEMI (non-ST elevated myocardial infarction) (6) Respiratory acidosis (7) Hemoptysis (8) Hypoglycemia (9) Pneumonia (10) Hypotension (11) Elevated d-dimer (12) Acute kidney injury superimposed on CKD Assessment & Plan: S/P initiation of HD (13) Hyponatremia (14) Sepsis Respiratory: monitor respiratory rate, adjust FIO2, weaning trial, other - Will likely need TRACH Cardiac: continue pressors - wean NE to keep MAP > 60, continue MIDODRINE 5 TID , ? DOBUT, continue to monitor HR/BP, other - UF as able, NEEDS VOLUME OFF, f/u cards recs Renal: other - HD per renal with UF as able. F/U recs, ? plan for cysto Infectious Disease: continue antibiotics - STEVE/VANCO per ID Gastrointestinal: continue feedings/current rate Endocrine: monitor blood sugar, other - F/U ENDO recs Hematologic: monitor H/H - and platelets Neurologic: keep patient comfortable Prophylaxis: Protonix, SCDs Disposition: keep in ICU Time Spent (Minutes): 40 Notes Reviewed: financial analysis manager, cardio, renal, ID, other - ENDO, Discussed with: nurses, consultants, other - DNAR, needs to discuss GOC and consideration for TRACHEOSTOMY Critical Care - Objective Last 24 Hour Vital Signs Date Time Temp Pulse Resp B/P (MAP) Pulse Ox O2 Delivery O2 Flow Rate FiO2 10/31/18 10:00 96 26 116/57 (76) 100 10/31/18 09:30 96 11 113/52 (72) 100 10/31/18 09:12 97 29 40 10/31/18 09:10 100 10/31/18 09:07 101 38 40 10/31/18 09:00 96 18 112/52 (72) 100 10/31/18 08:30 96 10 107/57 (74) 100 10/31/18 08:00 Mechanical Ventilator 10/31/18 08:00 98.7 94 4 110/42 (64) 100 10/31/18 08:00 94 10/31/18 08:00 40 10/31/18 07:30 95 4 108/45 (66) 100 10/31/18 07:00 91 24 40 10/31/18 07:00 91 4 72/53 (59) 100 10/31/18 06:30 93 20 101/71 (81) 100 10/31/18 06:00 88/44 10/31/18 06:00 93 20 88/44 (59) 100 10/31/18 05:30 90 20 96/50 (65) 100 10/31/18 05:27 90 22 40 10/31/18 05:00 99/42 10/31/18 05:00 91 20 99/42 (61) 100 10/31/18 04:30 90 20 108/60 (76) 100 10/31/18 04:00 98.1 94 20 100/54 (69) 100 10/31/18 04:00 Mechanical Ventilator 10/31/18 04:00 100/54 10/31/18 04:00 40 10/31/18 03:30 97 15 100/53 (69) 100 10/31/18 03:05 93 23 40 10/31/18 03:01 92 10/31/18 03:00 93 20 94/57 (69) 100 10/31/18 03:00 94/57 10/31/18 02:30 93 20 98/51 (67) 100 10/31/18 02:00 93 20 106/45 (65) 100 10/31/18 02:00 106/45 10/31/18 01:30 93 20 111/57 (75) 100 10/31/18 01:03 93 23 40 10/31/18 01:00 93 20 110/46 (67) 100 10/31/18 01:00 110/46 10/31/18 00:30 93 20 103/41 (61) 100 10/31/18 00:07 99/39 10/31/18 00:00 97.9 89 20 99/39 (59) 100 10/31/18 00:00 Mechanical Ventilator 10/31/18 00:00 40 10/30/18 23:30 97 20 95/56 (69) 100 10/30/18 23:17 99 10/30/18 23:00 101/54 10/30/18 23:00 103 16 101/54 (70) 100 10/30/18 22:59 104 24 40 10/30/18 22:30 99 20 109/48 (68) 100 10/30/18 22:00 106/43 10/30/18 22:00 99 20 106/43 (64) 100 10/30/18 21:30 96 20 108/45 (66) 100 10/30/18 21:04 99 30 40 10/30/18 21:00 98 20 120/38 (65) 100 10/30/18 21:00 120/38 10/30/18 20:30 96 20 107/51 (69) 100 10/30/18 20:00 117/91 10/30/18 20:00 Mechanical Ventilator 10/30/18 20:00 98.7 95 20 117/91 (100) 100 10/30/18 20:00 40 10/30/18 19:30 94 20 103/55 (71) 100 10/30/18 19:19 99 10/30/18 19:17 94 23 40 10/30/18 19:00 99/52 10/30/18 19:00 94 20 99/52 (68) 100 10/30/18 18:30 95 21 102/45 (64) 100 10/30/18 18:00 95 21 104/44 (64) 100 10/30/18 17:30 95 20 106/43 (64) 100 10/30/18 17:00 98 22 110/54 (72) 100 10/30/18 16:44 99 29 40 10/30/18 16:30 90 20 110/54 (72) 100 10/30/18 16:00 98.6 90 25 101/54 (70) 100 10/30/18 16:00 Mechanical Ventilator 10/30/18 16:00 40 10/30/18 16:00 97 10/30/18 15:30 96 7 104/50 (68) 100 10/30/18 15:00 96 12 110/49 (69) 100 10/30/18 14:59 97 27 40 10/30/18 14:30 95 2 108/87 (94) 100 10/30/18 14:00 91 0 104/49 (67) 100 10/30/18 13:30 101/54 10/30/18 13:30 90 25 101/54 (70) 100 10/30/18 13:00 90 25 108/50 (69) 100 10/30/18 13:00 88 20 40 2/23/19 12:30 95 8 104/51 (68) 100 10/30/18 12:30 104/51 10/30/18 12:00 40 10/30/18 12:00 98.3 95 25 107/51 (69) 100 10/30/18 12:00 96 10/30/18 12:00 107/51 10/30/18 12:00 Mechanical Ventilator 10/30/18 11:30 101 15 127/57 (80) 100 10/30/18 11:30 127/57 10/30/18 11:00 99 11 85/49 (61) 100 10/30/18 11:00 85/49 10/30/18 10:42 96 29 40 10/30/18 10:30 102 25 108/50 (69) 100 10/30/18 10:30 110/43 Status: awake Condition: grave HEENT: atraumatic, normocephalic, other - ETT OGT Neck: other - R IJ Lungs: rales - @ the bases Heart: HR/BP unstable Abdomen: soft, non-tender, active bowel sounds Extremities: edema - 2+ x 4, cyanosis - no, clubbing - no Decubiti: location - sacral redness Micro: Microbiology Date/Time Source Procedure Growth Status 10/30/18 03:30 Sputum Induced Gram Stain - Final Resulted 10/30/18 03:30 Sputum Induced Sputum Culture Pending Resulted Accucheck: 174 Blood Sugars: BS controlled Critical Care - Subjective ROS Limited/Unobtainable: Yes ICU Day: 14 Intubation Day: 13 Interval Events: Awake, failed SBT, more edematous, NE 20 Mido 5 TID, no sig secretions Condition: grave IV Access: PICC, central - R Ij cem EKG Rhythm: Sinus Rhythm FI02: 40 Vent Support Breath Rate: 20 Vent Support Mode: AC Vent Tidal Volume: 500 Sputum Amount: Small PEEP: 5.0 PIP: 52 Fluids: SLIV Drips: NE 20 Tube Feeding Amount: 30 I&O: Intake and Output 10/30/18 10/31/18 18:59 06:59 Intake Total 1171.25 ml 951.24 ml Output Total 400 ml Balance 771.25 ml 951.24 ml Free Water 50 ml IV Total 641.25 ml 551.24 ml Tube Feeding 480 ml 400 ml Stool Total 400 ml # Voids 3 1 Subjective: ZACHARY CXR: PVC ET-Tube: 7.5 ET Position: 23 Labs: Laboratory Tests Test 10/30/18 13:05 10/31/18 05:10 Arterial Blood pH 7.390 (7.350-7.450) Arterial Blood Partial Pressure CO2 41.3 mmHg (35.0-45.0) Arterial Blood Partial Pressure O2 47.4 mmHg (75.0-100.0) Arterial Blood HCO3 24.4 mmol/L (22.0-26.0) Arterial Blood Oxygen Saturation 80.9 % (95-100) *L Arterial Blood Base Excess -0.5 (-2-2) Tee Test Positive Sodium Level 126 MMOL/L (136-145) L Potassium Level 4.7 MMOL/L (3.5-5.1) Chloride Level 92 MMOL/L (98-107) L Carbon Dioxide Level 21 MMOL/L (21-32) Anion Gap 13 mmol/L (5-15) Blood Urea Nitrogen 81 mg/dL (7-18) H Creatinine 4.1 MG/DL (0.55-1.30) H Estimat Glomerular Filtration Rate mL/min (>60) Glucose Level 156 MG/DL (74-106) H Calcium Level 8.6 MG/DL (8.5-10.1) Chidi Bourne MD Oct 31, 2018 10:33
[2018-10-31] MEDS: DOBUTamine 250mg/250ml Premix 250 ML IV SCH (10:52)
--- NOTE | 2018-10-31 11:00 | NUR ---
NURSE NOTES: Dr Bourne here to see pt. Discussed failed wean attempt. Talked about possibility of trache. Will continue to monitor.
--- NOTE | 2018-10-31 11:26 | NUR ---
NURSE NOTES: Dr Eduardo here to see pt. No new orders. No acute distress. Will continue to monitor.
[2018-10-31] MEDS: DOPamine 400mg/250ml 250 ML IV SCH (12:43)
--- NOTE | 2018-10-31 13:30 | NUR ---
NURSE NOTES: Dr Johnson here to see pt. Pt more alert, able to move right hand. No new orders. Will continue to monitor.
--- NOTE | 2018-10-31 14:16 | Neurology Progress Note ---
Interim History Interim History Interim History Mr. Gann feels better. He continues to be more responsive. He opens his eyes on vocal stimulation. He is able to give yes/no answers. He follows commands consistently He is still moving his left side better than the right. He continues to be on a single pressor. He continues to be intubated and artificially ventilated. He still has significant anasarca. He continues to be ill. Review of Systems Neuro Review of Systems Unable to obtain. Objective Physical Exam Last Vital Signs Date Time Temp Pulse Resp B/P (MAP) Pulse Ox O2 Delivery O2 Flow Rate FiO2 10/31/18 14:07 107/40 10/31/18 13:30 105 13 96 10/31/18 13:23 40 10/31/18 12:00 Mechanical Ventilator 10/31/18 12:00 99.0 Laboratory Tests Test 10/31/18 05:10 Sodium Level 126 MMOL/L (136-145) L Potassium Level 4.7 MMOL/L (3.5-5.1) Chloride Level 92 MMOL/L (98-107) L Carbon Dioxide Level 21 MMOL/L (21-32) Anion Gap 13 mmol/L (5-15) Blood Urea Nitrogen 81 mg/dL (7-18) H Creatinine 4.1 MG/DL (0.55-1.30) H Estimat Glomerular Filtration Rate mL/min (>60) Glucose Level 156 MG/DL (74-106) H Calcium Level 8.6 MG/DL (8.5-10.1) Neurologic Exam Objective PHYSICAL EXAMINATION: GENERAL: He is a well-developed, relatively well-nourished, gentleman , lying in an ICU bed, connected to a ventilator through an orotracheal tube. HEAD: Normocephalic and atraumatic. NECK: No neck rigidity was observed. EENT: Benign. NEUROLOGICAL EXAMINATION: MENTAL STATUS EXAMINATION: He opened his eyes on vocal stimuli. He was brighter. He followed simple commands well. He was able to communicate with yes/no answers. Further mental status testing was impossible. SPEECH: Could not be tested. LANGUAGE: He was able to comprehend well and mouth a few words. CRANIAL NERVE EXAMINATION: II: He did blink to threat. He counted fingers. III, IV & : The external ocular movements were present. The pupils were 3 mm in diameter, equal, round, regular, and did not react to light. V & VII: The corneal reflexes were present bilaterally, but significantly diminished on the right side compared to the left. VIII: He did not respond to sounds and had no nystagmus. IX & X: The gag reflex was absent on manipulating the endotracheal tube. XI: The sternocleidomastoids and trapezii did not function. XII: Could not be tested adequately. MOTOR SYSTEM: The tone was normal in all four extremities. Examination of muscle mass revealed no focal wasting. Examination of power was impossible to perform accurately - he moved his left side better than the right. SENSORY EXAMINATION: He responded appropriately to deep pain. He was unable to cooperate for other sensory modalities. REFLEXES: Trace+ and bilaterally symmetrical at the biceps, triceps, brachioradialis. 0 at both knees and ankles. The plantar response was extensor on the right and mute on the left. COORDINATION, STANCE & GAIT: Could not be tested. ABNORMAL MOVEMENTS: Tremor (7-8 Hz): 0/4 Impression/Recommendations Diagnostic Impression 1. Mr. Marla Gann is an 83-year-old, gentleman, of unknown handedness, with a past history of multiple medical problems including hypertension, diabetes mellitus, dyslipidemia, aortic stenosis, vitamin B12 deficiency, vitamin D deficiency, coronary artery disease, congestive heart failure, and intestinal pathology. He was hospitalized on 10/09/2018 for an altered mental state related to multiple metabolic imbalances. He did improve, but then in the hospital, he has had multiple further episodes of hypoglycemia. On the morning of 10/19/18, his blood sugar dropped to 22. He has also had problems with his respiratory function, progressive renal dysfunction, and on the morning of 10/19/18 was noted to have weakness in his right upper extremity, this problem continues. 2. He feels better. He is more responsive. He opens his eyes on vocal stimulation. He is able to give yes/no answers. He follows commands consistently He is still moving his left side better than the right. He continues to be on a single pressor. He continues to be intubated and artificially ventilated. He still has significant anasarca. He continues to be ill. 3. On neurological examination, at this time, he opens his eyes on vocal stimuli , he is able to follow commands consistently. He is able to communicate with yes /no answers, however further mental status testing is impossible. The corneal reflex is definitely diminished on the right side compared to the left. 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 His deep tendon reflexes are globally diminished in the upper extremities and lost in the lower extremities. His plantar response is extensor on the right and mute on the left. He has no tremor. 4. His laboratory data on my initial evaluation revealed that his WBC count was elevated to 16,000. His hemoglobin was low at 7.2 G. His arterial blood gas revealed a pH of 7.18, a pCO2 of 43, and a pO2 of 112. His chemistry panel revealed a sodium of 133, potassium of 5.3, chloride of 91, BUN at 89, creatinine at 5.2, and blood glucose at 22. 5. His EEG done on 10/19/18 revealed a moderately severe encephalopathy with a definite toxic/metabolic component. 6. The Repeat EEG done on 10/23/18 revealed a moderately severe toxic/metabolic encephalopathy. In addition left > right hemispheric dysfunction was seen. The abnormal movements had no EEG correlate. 7. The CT of the brain was benign for acute pathology. 8. His latest laboratory tests reveal that his leukocytosis is worse with a WBC count of 26,300. He is severely hyponatremic with a Na of 121 and chloride of 86. His BUN is elevated at 72 with a creatinine of 4.9. His LFTs are elevated and so is his glucose. 9. The patient's history, neurological examination, and laboratory data are most compatible with a significant toxic metabolic encephalopathy that brought him into the hospital, and now possibly an acute cerebral lesion causing the right hemiparesis. 10. The left UE movement was a tremor. It has now resolved. The EEG while he was having the tremor revealed no EEG correlate. 11. His encephalopathy continues to improve. Recommendations 1. Continue present management. 2. Continue to correct toxic metabolic imbalances. 3. Try to keep the blood pressure >110 mmHg systolic. 4. When possible get MRI of brain. 5. Observe closely in ICU setting. Abram Johnson M.D., M.S.P.H. Abram Johnson MD Oct 31, 2018 14:16
[2018-10-31] MEDS: Vasopressin 100 UNITS in NS 95 ML IV SCH (15:00)
--- NOTE | 2018-10-31 15:32 | General Progress Note ---
Assessment/Plan Assessment/Plan Assessment - Abnormal LFT, gradually improving - Nodular liver, ascites, low albumin - possible cirrhosis - Respiratory failure - Dysphagia - may need GT - Ascites - would need PEG placed surgically - s/p rubén - CAD - Diarrhea Recommendations - check additional liver serologies - follow LFT - Vent care - Tube feeds - Rectal tube Subjective Allergies: Coded Allergies: PENICILLINS (Verified Allergy, Unknown, 10/09/18) Subjective Elderly WM intubated tolerating TF Objective Last 24 Hour Vital Signs Date Time Temp Pulse Resp B/P (MAP) Pulse Ox O2 Delivery O2 Flow Rate FiO2 10/31/18 14:30 107 27 86/61 (69) 99 10/31/18 14:07 107/40 10/31/18 14:00 104 0 92/38 (56) 98 10/31/18 13:30 105 13 107/40 (62) 96 10/31/18 13:23 105 33 40 10/31/18 13:02 100 20 93/48 (63) 100 10/31/18 12:43 98/68 10/31/18 12:30 97 9 98/68 (78) 97 10/31/18 12:00 95 10/31/18 12:00 Mechanical Ventilator 10/31/18 12:00 99.0 93 0 84/53 (63) 97 10/31/18 12:00 40 10/31/18 11:30 97 23 103/85 (91) 97 10/31/18 11:27 104 32 40 10/31/18 11:00 97 29 118/52 (74) 98 10/31/18 10:52 115/71 10/31/18 10:30 96 27 115/71 (86) 99 10/31/18 10:00 96 26 116/57 (76) 100 10/31/18 09:30 96 11 113/52 (72) 100 10/31/18 09:12 97 29 40 10/31/18 09:10 100 10/31/18 09:07 101 38 40 10/31/18 09:00 96 18 112/52 (72) 100 10/31/18 08:30 96 10 107/57 (74) 100 10/31/18 08:00 Mechanical Ventilator 10/31/18 08:00 98.7 94 4 110/42 (64) 100 10/31/18 08:00 94 10/31/18 08:00 40 10/31/18 07:30 95 4 108/45 (66) 100 10/31/18 07:00 91 24 40 10/31/18 07:00 91 4 72/53 (59) 100 10/31/18 06:30 93 20 101/71 (81) 100 10/31/18 06:00 88/44 10/31/18 06:00 93 20 88/44 (59) 100 10/31/18 05:30 90 20 96/50 (65) 100 10/31/18 05:27 90 22 40 10/31/18 05:00 99/42 10/31/18 05:00 91 20 99/42 (61) 100 10/31/18 04:30 90 20 108/60 (76) 100 10/31/18 04:00 98.1 94 20 100/54 (69) 100 10/31/18 04:00 Mechanical Ventilator 10/31/18 04:00 100/54 10/31/18 04:00 40 10/31/18 03:30 97 15 100/53 (69) 100 10/31/18 03:05 93 23 40 10/31/18 03:01 92 10/31/18 03:00 93 20 94/57 (69) 100 10/31/18 03:00 94/57 10/31/18 02:30 93 20 98/51 (67) 100 10/31/18 02:00 93 20 106/45 (65) 100 10/31/18 02:00 106/45 10/31/18 01:30 93 20 111/57 (75) 100 10/31/18 01:03 93 23 40 10/31/18 01:00 93 20 110/46 (67) 100 10/31/18 01:00 110/46 10/31/18 00:30 93 20 103/41 (61) 100 10/31/18 00:07 99/39 10/31/18 00:00 97.9 89 20 99/39 (59) 100 10/31/18 00:00 Mechanical Ventilator 10/31/18 00:00 40 10/30/18 23:30 97 20 95/56 (69) 100 10/30/18 23:17 99 10/30/18 23:00 101/54 2/23/19 23:00 103 16 101/54 (70) 100 10/30/18 22:59 104 24 40 10/30/18 22:30 99 20 109/48 (68) 100 10/30/18 22:00 106/43 10/30/18 22:00 99 20 106/43 (64) 100 10/30/18 21:30 96 20 108/45 (66) 100 10/30/18 21:04 99 30 40 10/30/18 21:00 98 20 120/38 (65) 100 10/30/18 21:00 120/38 10/30/18 20:30 96 20 107/51 (69) 100 10/30/18 20:00 117/91 10/30/18 20:00 Mechanical Ventilator 10/30/18 20:00 98.7 95 20 117/91 (100) 100 10/30/18 20:00 40 10/30/18 19:30 94 20 103/55 (71) 100 10/30/18 19:19 99 10/30/18 19:17 94 23 40 10/30/18 19:00 99/52 10/30/18 19:00 94 20 99/52 (68) 100 10/30/18 18:30 95 21 102/45 (64) 100 10/30/18 18:00 95 21 104/44 (64) 100 10/30/18 17:30 95 20 106/43 (64) 100 10/30/18 17:00 98 22 110/54 (72) 100 10/30/18 16:44 99 29 40 10/30/18 16:30 90 20 110/54 (72) 100 10/30/18 16:00 98.6 90 25 101/54 (70) 100 10/30/18 16:00 Mechanical Ventilator 10/30/18 16:00 40 10/30/18 16:00 97 10/30/18 15:30 96 7 104/50 (68) 100 Intake and Output 10/30/18 10/31/18 18:59 06:59 Intake Total 1171.25 ml 951.24 ml Output Total 400 ml Balance 771.25 ml 951.24 ml Free Water 50 ml IV Total 641.25 ml 551.24 ml Tube Feeding 480 ml 400 ml Stool Total 400 ml # Voids 3 1 Laboratory Tests 10/31/18 05:10: Sodium Level 126L, Potassium Level 4.7, Chloride Level 92L, Carbon Dioxide Level 21, Anion Gap 13, Blood Urea Nitrogen 81H, Creatinine 4.1H, Estimat Glomerular Filtration Rate , Glucose Level 156H, Calcium Level 8.6 Height (Feet): 5 Height (Inches): 2.00 Weight (Pounds): 203 Objective WDWN NCAT Neck supple Chest CTA RRR Abd Soft ND NT no edema Tracy Lynn MD Oct 31, 2018 15:32
--- NOTE | 2018-10-31 15:50 | NUR ---
NURSE NOTES: Pt given IM haldol for agitation, pt trying to breathe over vent. Will continue to monitor.
--- NOTE | 2018-10-31 17:28 | NUR ---
NURSE NOTES: Dialysis started. No acute distress. Will continue to monitor.
--- NOTE | 2018-10-31 19:01 | NUR ---
HAND-OFF: Report given to Tello OSMAN.
--- NOTE | 2018-10-31 19:06 | Cardiology Progress Note ---
Assessment/Plan Assessment/Plan based on severe generalized swelling, more fluid removal is indicated Subjective Subjective the patient is intubated, alert, trying to communicate Objective Last 24 Hour Vital Signs Date Time Temp Pulse Resp B/P (MAP) Pulse Ox O2 Delivery O2 Flow Rate FiO2 10/31/18 18:30 98 7 85/30 (48) 95 10/31/18 18:00 97 15 93/31 (51) 95 10/31/18 17:30 102 0 96/37 (56) 97 10/31/18 17:13 105 32 40 10/31/18 17:00 100 0 95/42 (59) 96 10/31/18 16:30 101 8 92/40 (57) 95 10/31/18 16:00 106 10/31/18 16:00 Mechanical Ventilator 10/31/18 16:00 99.0 103 9 101/42 (61) 95 10/31/18 16:00 40 10/31/18 15:30 106 10 103/52 (69) 100 10/31/18 15:23 106 33 40 10/31/18 15:00 105 9 105/74 (84) 98 10/31/18 14:30 107 27 86/61 (69) 99 10/31/18 14:07 107/40 10/31/18 14:00 104 0 92/38 (56) 98 10/31/18 13:30 105 13 107/40 (62) 96 10/31/18 13:23 105 33 40 10/31/18 13:02 100 20 93/48 (63) 100 10/31/18 12:43 98/68 10/31/18 12:30 97 9 98/68 (78) 97 10/31/18 12:00 95 10/31/18 12:00 Mechanical Ventilator 10/31/18 12:00 99.0 93 0 84/53 (63) 97 10/31/18 12:00 40 10/31/18 11:30 97 23 103/85 (91) 97 10/31/18 11:27 104 32 40 10/31/18 11:00 97 29 118/52 (74) 98 10/31/18 10:52 115/71 10/31/18 10:30 96 27 115/71 (86) 99 10/31/18 10:00 96 26 116/57 (76) 100 10/31/18 09:30 96 11 113/52 (72) 100 10/31/18 09:12 97 29 40 10/31/18 09:10 100 10/31/18 09:07 101 38 40 10/31/18 09:00 96 18 112/52 (72) 100 10/31/18 08:30 96 10 107/57 (74) 100 10/31/18 08:00 Mechanical Ventilator 10/31/18 08:00 98.7 94 4 110/42 (64) 100 10/31/18 08:00 94 10/31/18 08:00 40 10/31/18 07:30 95 4 108/45 (66) 100 10/31/18 07:00 91 24 40 10/31/18 07:00 91 4 72/53 (59) 100 10/31/18 06:30 93 20 101/71 (81) 100 10/31/18 06:00 88/44 10/31/18 06:00 93 20 88/44 (59) 100 10/31/18 05:30 90 20 96/50 (65) 100 10/31/18 05:27 90 22 40 10/31/18 05:00 99/42 10/31/18 05:00 91 20 99/42 (61) 100 10/31/18 04:30 90 20 108/60 (76) 100 10/31/18 04:00 98.1 94 20 100/54 (69) 100 10/31/18 04:00 Mechanical Ventilator 10/31/18 04:00 100/54 10/31/18 04:00 40 10/31/18 03:30 97 15 100/53 (69) 100 10/31/18 03:05 93 23 40 10/31/18 03:01 92 10/31/18 03:00 93 20 94/57 (69) 100 10/31/18 03:00 94/57 10/31/18 02:30 93 20 98/51 (67) 100 10/31/18 02:00 93 20 106/45 (65) 100 10/31/18 02:00 106/45 10/31/18 01:30 93 20 111/57 (75) 100 10/31/18 01:03 93 23 40 10/31/18 01:00 93 20 110/46 (67) 100 10/31/18 01:00 110/46 10/31/18 00:30 93 20 103/41 (61) 100 10/31/18 00:07 99/39 10/31/18 00:00 97.9 89 20 99/39 (59) 100 10/31/18 00:00 Mechanical Ventilator 10/31/18 00:00 40 10/30/18 23:30 97 20 95/56 (69) 100 10/30/18 23:17 99 10/30/18 23:00 101/54 10/30/18 23:00 103 16 101/54 (70) 100 10/30/18 22:59 104 24 40 10/30/18 22:30 99 20 109/48 (68) 100 10/30/18 22:00 106/43 10/30/18 22:00 99 20 106/43 (64) 100 10/30/18 21:30 96 20 108/45 (66) 100 10/30/18 21:04 99 30 40 10/30/18 21:00 98 20 120/38 (65) 100 10/30/18 21:00 120/38 10/30/18 20:30 96 20 107/51 (69) 100 10/30/18 20:00 117/91 10/30/18 20:00 Mechanical Ventilator 10/30/18 20:00 98.7 95 20 117/91 (100) 100 10/30/18 20:00 40 10/30/18 19:30 94 20 103/55 (71) 100 10/30/18 19:19 99 10/30/18 19:17 94 23 40 General Appearance: on vent EENT: PERRL/EOMI Neck: JVD Cardiovascular: tachycardia Respiratory/Chest: crackles/rales Abdomen: distended Extremities: severe edema - severe generalized edema, other Intake and Output 10/30/18 10/31/18 19:00 07:00 Intake Total 1171.25 ml 941.24 ml Output Total 400 ml Balance 771.25 ml 941.24 ml Free Water 50 ml IV Total 641.25 ml 551.24 ml Tube Feeding 480 ml 390 ml Stool Total 400 ml # Voids 3 1 # Bowel Movements 50 Laboratory Tests Test 10/31/18 05:10 Sodium Level 126 MMOL/L (136-145) L Potassium Level 4.7 MMOL/L (3.5-5.1) Chloride Level 92 MMOL/L (98-107) L Carbon Dioxide Level 21 MMOL/L (21-32) Anion Gap 13 mmol/L (5-15) Blood Urea Nitrogen 81 mg/dL (7-18) H Creatinine 4.1 MG/DL (0.55-1.30) H Estimat Glomerular Filtration Rate mL/min (>60) Glucose Level 156 MG/DL (74-106) H Calcium Level 8.6 MG/DL (8.5-10.1) Microbiology Date/Time Source Procedure Growth Status 10/30/18 03:30 Sputum Induced Gram Stain - Final Resulted 10/30/18 03:30 Sputum Induced Sputum Culture Pending Resulted Brooklyn Juarez MD Oct 31, 2018 19:06
--- NOTE | 2018-10-31 19:29 | NUR ---
RESPIRATORY NOTE: PT RECEIVED STABLE ON CURRENT CMV ORDERS: AC, 20, 500, 30%, +5. ALARMS ON AND AUDIBLE. VENT. CIRCUIT SECURE AND OUT OF THE WAY. NO S/S OF RESPIRATORY DISTRESS NOTED AT THIS TIME. WILL CONTINUE TO MONITOR.
--- NOTE | 2018-10-31 19:30 | NUR ---
NURSE NOTES: FINISHED DIALYSIS, REMOVED 2000ML.
--- NOTE | 2018-10-31 19:50 | NUR ---
NURSE NOTES: PATIENT OPEN EYES, ABLE TO EYE CONTACT, DENIED PAIN AND FOLLOW COMMAND AT THIS TIME, ON ETT TO VENT AC20/ TV 500/ FIO2 26%/PEEP5, O2 SATURATION 96% NOTED, OGT INTACT AND PATENT, ONGOING NEPRO AT 40ML/HR, RESIDUE 20ML NOTED, ABDOMEN LARGE, ROUND, TENDER, GENERALIZED EDEMA, RECTAL TUBE INTACT AND PATENT, GREENISH COLOR SOLID STOOL OUTED, PICC LINE TO LEFT UPPER ARM, SLIGHT OOZING, INTACT AND PATENT, ONGOING LEVOPHED 30MCG/HR VIA PICC LINE, ABILIO CATH W/ PIG TAIL TO RIGHT IJ, WEEPING FROM ALL SKIN TEAR WOUND AN D FORKING SITE, KEPT HOB OVER 30 DEGREE, ON P200 BED, MADE LOWER BED POSITION, PROVIDED CALL LIGHT WITHIN REACH, WILL CONTINUE TO MONITOR.
[2018-10-31] MEDS: Dyna-Hex 2% Top Sol 2oz TOPIC SCH (20:01)
[2018-10-31] MEDS: Latanoprost 0.005% Opth 2.5ml Soln BOTH EYES SCH (20:42)
--- NOTE | 2018-10-31 20:50 | NUR ---
NURSE NOTES: CHANGED PICC LINE DRESSING PER PROTOCOLS.
[2018-10-31] MEDS ORDERED: Vancomycin 1gm/D5W 275ml IVPB ONE ×2 (21:00)
--- NOTE | 2018-10-31 22:10 | NUR ---
NURSE NOTES: REPOSITIONED, ORAL CARE WAS DONE.
--- NOTE | 2018-10-31 22:11 | General Progress Note ---
Assessment/Plan Assessment/Plan ASSESSMENT/RECS: # Thrombocytopenia -- multiple etiologies possible, has been on heparin gtt which was discontinued on 10/24 --> HIT antibody has been ordered and pending --> smear has been reviewed, no e/o schistocytes is noted --> duplex lower extremities ordered and is negative for dvt --> anemia panel has been reviewed and is negative for hemolysis --> flow cytometry reviewed and is negative for leukemia/mds # Leukocytosis likely related to underlying sepsis, flow cytometry is negative for underlying malignancy/no leukemia noted, no distinct immunophentype is noted --> r/o other underlying causes such as infection --> on abx as per id, antifungals --> if stable, can consider a bone marrow biopsy given nucleated cells on the peripheral smear that are persistent in future # Respiratory failure on a vent --> as per pulm management # Hyponatremia on ivf as per nephro # Colonic distention, abnormal liver function tests. --> as per gi # ESRD on hd as per vip --> on hd The timing of this note does not necessarily reflect the time of the patient was seen. Greatly appreciate consultation! Subjective ROS Limited/Unobtainable: Yes Allergies: Coded Allergies: PENICILLINS (Verified Allergy, Unknown, 10/09/18) Subjective 10/25: pt was seen in ICU , more alert today, no acute events reported. plt 64, wbc 19, flow cytometry ordered, off heparin gtt 10/26: in icu still, per rn is off heparin gtt, currently symptoms are better, no fevers or chills noted, on pressor but less 10/27:plt 67, intubated on 1 pressor , but now follows commands, no events 10/28: Pt is intubated, non verbal, no events 10/29: seen by bedside,on vent, HD today, on pressors, abxs per ID, wbc 16, plt 94 10/31: patient is intubated, hgb 8.4, plt 64, no events Objective Last 24 Hour Vital Signs Date Time Temp Pulse Resp B/P (MAP) Pulse Ox O2 Delivery O2 Flow Rate FiO2 10/31/18 21:30 106 26 99/45 (63) 99 10/31/18 21:00 106 20 100/41 (60) 99 10/31/18 20:30 105 20 103/41 (61) 98 10/31/18 20:00 98.0 102 17 95/44 (61) 96 10/31/18 20:00 Mechanical Ventilator 10/31/18 20:00 40 10/31/18 19:30 100 21 84/37 (53) 96 10/31/18 19:00 105 32 86/38 (54) 96 10/31/18 18:30 98 7 85/30 (48) 95 10/31/18 18:00 97 15 93/31 (51) 95 10/31/18 17:30 102 0 96/37 (56) 97 10/31/18 17:13 105 32 40 10/31/18 17:00 100 0 95/42 (59) 96 10/31/18 16:30 101 8 92/40 (57) 95 10/31/18 16:00 106 10/31/18 16:00 Mechanical Ventilator 10/31/18 16:00 99.0 103 9 101/42 (61) 95 10/31/18 16:00 40 10/31/18 15:30 106 10 103/52 (69) 100 10/31/18 15:23 106 33 40 10/31/18 15:00 105 9 105/74 (84) 98 10/31/18 14:30 107 27 86/61 (69) 99 10/31/18 14:07 107/40 10/31/18 14:00 104 0 92/38 (56) 98 10/31/18 13:30 105 13 107/40 (62) 96 10/31/18 13:23 105 33 40 10/31/18 13:02 100 20 93/48 (63) 100 10/31/18 12:43 98/68 10/31/18 12:30 97 9 98/68 (78) 97 10/31/18 12:00 95 10/31/18 12:00 Mechanical Ventilator 10/31/18 12:00 99.0 93 0 84/53 (63) 97 10/31/18 12:00 40 10/31/18 11:30 97 23 103/85 (91) 97 10/31/18 11:27 104 32 40 10/31/18 11:00 97 29 118/52 (74) 98 10/31/18 10:52 115/71 10/31/18 10:30 96 27 115/71 (86) 99 10/31/18 10:00 96 26 116/57 (76) 100 10/31/18 09:30 96 11 113/52 (72) 100 10/31/18 09:12 97 29 40 10/31/18 09:10 100 10/31/18 09:07 101 38 40 10/31/18 09:00 96 18 112/52 (72) 100 10/31/18 08:30 96 10 107/57 (74) 100 10/31/18 08:00 Mechanical Ventilator 10/31/18 08:00 98.7 94 4 110/42 (64) 100 10/31/18 08:00 94 10/31/18 08:00 40 10/31/18 07:30 95 4 108/45 (66) 100 10/31/18 07:00 91 24 40 10/31/18 07:00 91 4 72/53 (59) 100 10/31/18 06:30 93 20 101/71 (81) 100 10/31/18 06:00 88/44 10/31/18 06:00 93 20 88/44 (59) 100 10/31/18 05:30 90 20 96/50 (65) 100 10/31/18 05:27 90 22 40 10/31/18 05:00 99/42 10/31/18 05:00 91 20 99/42 (61) 100 10/31/18 04:30 90 20 108/60 (76) 100 10/31/18 04:00 98.1 94 20 100/54 (69) 100 10/31/18 04:00 Mechanical Ventilator 10/31/18 04:00 100/54 10/31/18 04:00 40 10/31/18 03:30 97 15 100/53 (69) 100 10/31/18 03:05 93 23 40 10/31/18 03:01 92 10/31/18 03:00 93 20 94/57 (69) 100 10/31/18 03:00 94/57 10/31/18 02:30 93 20 98/51 (67) 100 10/31/18 02:00 93 20 106/45 (65) 100 10/31/18 02:00 106/45 10/31/18 01:30 93 20 111/57 (75) 100 10/31/18 01:03 93 23 40 10/31/18 01:00 93 20 110/46 (67) 100 10/31/18 01:00 110/46 10/31/18 00:30 93 20 103/41 (61) 100 10/31/18 00:07 99/39 10/31/18 00:00 97.9 89 20 99/39 (59) 100 10/31/18 00:00 Mechanical Ventilator 10/31/18 00:00 40 10/30/18 23:30 97 20 95/56 (69) 100 10/30/18 23:17 99 10/30/18 23:00 101/54 10/30/18 23:00 103 16 101/54 (70) 100 10/30/18 22:59 104 24 40 10/30/18 22:30 99 20 109/48 (68) 100 Intake and Output 10/30/18 10/31/18 19:00 07:00 Intake Total 1171.25 ml 941.24 ml Output Total 400 ml Balance 771.25 ml 941.24 ml Free Water 50 ml IV Total 641.25 ml 551.24 ml Tube Feeding 480 ml 390 ml Stool Total 400 ml # Voids 3 1 # Bowel Movements 50 Laboratory Tests 10/31/18 05:10: Sodium Level 126L, Potassium Level 4.7, Chloride Level 92L, Carbon Dioxide Level 21, Anion Gap 13, Blood Urea Nitrogen 81H, Creatinine 4.1H, Estimat Glomerular Filtration Rate , Glucose Level 156H, Calcium Level 8.6 Height (Feet): 5 Height (Inches): 2.00 Weight (Pounds): 203 Objective PHYSICAL EXAMINATION: VITAL SIGNS: reviewed HEENT: Normocephalic and atraumatic. Mild scleral icterus. NECK: Supple. On vent CARDIOVASCULAR: Tachycardic. Regular rr, Plus S1, S2. There is a soft murmur at the left sternal border. LUNGS: ++ vent ABDOMEN: Distended, tympanic to percussion. Hypoactive bowel sounds. EXTREMITIES: No cyanosis, no clubbing, no edema. NEUROLOGIC: More alert Rah Ferreira MD Oct 31, 2018 22:11
[2018-11-01] VITALS (48 sets, daily range): BP systolic 77–122; BP diastolic 16–67
--- NOTE | 2018-11-01 | NUR ---
NURSE NOTES: NO PAIN OR DISTRESS NOTED AT THIS TIME.
--- NOTE | 2018-11-01 02:16 | NUR ---
NURSE NOTES: PATIENT ASLEEP STATUS, ONGOING LEVOPHED 30MCG/MIN VIA PICC LINE, RECTAL TUBE INTACT AND PATENT, BROWN SOLID STOOL OUTED.
--- NOTE | 2018-11-01 04:00 | NUR ---
NURSE NOTES: MORNING CARE AND ORAL CARE WAS DONE, NO PAIN OR SOB NOTED WHILE CARE, WILL CONTINUE PLAN OF CARE.
--- NOTE | 2018-11-01 05:15 | NUR ---
RESPIRATORY NOTE: PT. REMAINED STABLE ON CMV WITH CURRENTS SETTINGS. SXN PRN WITH NO ADVERSE REACTION. VENT CIRCUIT SECURE AND OUT OF THE WAY. ANCHOR FAST CHANGED AT 0118, SOME REDNESS WAS FOUND BUT NO SKIN BREAKDOWN. RN. AWARE. NO SOB NOTED AT THIS TIME.
--- NOTE | 2018-11-01 05:20 | NUR ---
NURSE NOTES: PERIPHERAL BLOOD DRAWN WAS DONE BY PHOTOGRAPHY SPOTTER DUE TO LEVOPHED DRIP.
[2018-11-01] MEDS: NovoLOG Insulin Flexpen SUBQ SCH ×3 (05:38→18:21)
--- NOTE | 2018-11-01 06:15 | NUR ---
NURSE NOTES: CALLED LAB REGARDING CMV PCR QUALITATIVE SERUM/CSF THAT BLOOD DRAWN WAS DONE.
--- NOTE | 2018-11-01 06:40 | NUR ---
RESPIRATORY NOTE: Received pt on vent with current settings AC 14-600ml-30% FiO2- peep of 5, oral intubated with ETT 7.0 @ 24cm lips line. Keny rhonchi diminished breath sound heard upon auscultation, suctioned moderate amount of thick/thin white oliveira secretions without any incidents. Pt is sleeping, unable to follow commands. Pt will have tracheostomy done later at 1300. No SOB or resp distress noted at this time. Vent is plugged into red outlet, alarms are set and audible, and ambu bag at bedside. Will cont to monitor. Addendum: 11/01/18 at 1844 by Andrea Ellsworth Cespedes RT A wound on the left cheek under the anchor fast noted, covered by wound tape per RNMoy Bite block in place to prevent biting. Addendum: 11/01/18 at 184 by Andrea N Cespedes RT Wrong patient chart
--- NOTE | 2018-11-01 06:47 | General Progress Note ---
Assessment/Plan Problem List: (1) CKD (chronic kidney disease) ICD Codes: N18.9 - Chronic kidney disease, unspecified SNOMED: 541079153 (2) Hypoglycemia ICD Codes: E16.2 - Hypoglycemia, unspecified SNOMED: 212029845 (3) Altered mental status ICD Codes: R41.82 - Altered mental status, unspecified SNOMED: 382576049 (4) Ventilator dependence ICD Codes: Z99.11 - Dependence on respirator [ventilator] status SNOMED: 179101297 (5) Hyponatremia ICD Codes: E87.1 - Hypo-osmolality and hyponatremia SNOMED: 12496412 (6) Respiratory failure, acute ICD Codes: J96.00 - Acute respiratory failure, unspecified whether with hypoxia or hypercapnia SNOMED: 88478673 (7) CHF (congestive heart failure) ICD Codes: I50.9 - Heart failure, unspecified SNOMED: 99520612 Assessment/Plan glucose values are stable continue glucose monitoring every 6 hours - low dose Novolog coverage hypoglycemia protocol in order Subjective ROS Limited/Unobtainable: Yes Allergies: Coded Allergies: PENICILLINS (Verified Allergy, Unknown, 10/09/18) Subjective events noted Item Value Date Time Bedside Blood Glucose 164 mg/dl H 11/01/18 0539 Bedside Blood Glucose 190 mg/dl H 10/31/18 2332 Bedside Blood Glucose 150 mg/dl H 10/31/18 1800 Bedside Blood Glucose 151 mg/dl H 10/31/18 1200 Bedside Blood Glucose 174 mg/dl H 10/31/18 0532 Bedside Blood Glucose 126 mg/dl H 10/30/18 2332 Objective Last 24 Hour Vital Signs Date Time Temp Pulse Resp B/P (MAP) Pulse Ox O2 Delivery O2 Flow Rate FiO2 11/01/18 06:30 107 20 102/59 (73) 100 11/01/18 06:00 104 20 100/67 (78) 100 11/01/18 05:30 104 17 101/56 (71) 100 11/01/18 05:18 4 26 30 11/01/18 05:00 94 20 100/47 (64) 100 11/01/18 04:30 105 20 104/45 (64) 100 11/01/18 04:04 103 11/01/18 04:00 Mechanical Ventilator 11/01/18 04:00 98.9 105 26 97/33 (54) 100 11/01/18 04:00 30 11/01/18 03:30 105 2 102/59 (73) 100 11/01/18 03:00 105 9 94/27 (49) 100 11/01/18 02:56 102 25 30 11/01/18 02:30 102 0 100/46 (64) 100 11/01/18 02:00 105 26 93/39 (57) 100 11/01/18 01:30 105 28 93/47 (62) 100 11/01/18 01:18 102 28 30 11/01/18 01:00 106 28 94/43 (60) 100 11/01/18 00:30 103 27 104/40 (61) 100 11/01/18 00:00 Mechanical Ventilator 11/01/18 00:00 98.1 103 27 100/54 (69) 100 11/01/18 00:00 30 10/31/18 23:51 109 10/31/18 23:30 104 26 89/37 (54) 99 10/31/18 23:28 98/40 10/31/18 23:23 103 26 30 10/31/18 23:00 104 26 93/75 (81) 98 10/31/18 22:30 101 26 95/45 (62) 99 10/31/18 22:20 104 25 30 10/31/18 22:00 102 26 104/44 (64) 98 10/31/18 21:30 106 26 99/45 (63) 99 10/31/18 21:00 106 20 100/41 (60) 99 10/31/18 21:00 100/41 10/31/18 20:30 105 20 103/41 (61) 98 10/31/18 20:10 106 10/31/18 20:00 98.0 102 17 95/44 (61) 96 10/31/18 20:00 Mechanical Ventilator 10/31/18 20:00 95/44 10/31/18 20:00 26 10/31/18 19:30 100 21 84/37 (53) 96 10/31/18 19:29 103 24 30 10/31/18 19:00 105 32 86/38 (54) 96 10/31/18 19:00 86/38 10/31/18 18:30 98 7 85/30 (48) 95 10/31/18 18:00 97 15 93/31 (51) 95 10/31/18 17:30 102 0 96/37 (56) 97 10/31/18 17:13 105 32 40 10/31/18 17:00 100 0 95/42 (59) 96 10/31/18 16:30 101 8 92/40 (57) 95 10/31/18 16:00 106 10/31/18 16:00 Mechanical Ventilator 10/31/18 16:00 99.0 103 9 101/42 (61) 95 10/31/18 16:00 40 10/31/18 15:30 106 10 103/52 (69) 100 10/31/18 15:23 106 33 40 10/31/18 15:00 105 9 105/74 (84) 98 10/31/18 14:30 107 27 86/61 (69) 99 10/31/18 14:07 107/40 10/31/18 14:00 104 0 92/38 (56) 98 10/31/18 13:30 105 13 107/40 (62) 96 10/31/18 13:23 105 33 40 10/31/18 13:02 100 20 93/48 (63) 100 10/31/18 12:43 98/68 10/31/18 12:30 97 9 98/68 (78) 97 10/31/18 12:00 95 10/31/18 12:00 Mechanical Ventilator 10/31/18 12:00 99.0 93 0 84/53 (63) 97 10/31/18 12:00 40 10/31/18 11:30 97 23 103/85 (91) 97 10/31/18 11:27 104 32 40 10/31/18 11:00 97 29 118/52 (74) 98 10/31/18 10:52 115/71 10/31/18 10:30 96 27 115/71 (86) 99 10/31/18 10:00 96 26 116/57 (76) 100 10/31/18 09:30 96 11 113/52 (72) 100 10/31/18 09:12 97 29 40 10/31/18 09:10 100 10/31/18 09:07 101 38 40 10/31/18 09:00 96 18 112/52 (72) 100 10/31/18 08:30 96 10 107/57 (74) 100 10/31/18 08:00 Mechanical Ventilator 10/31/18 08:00 98.7 94 4 110/42 (64) 100 10/31/18 08:00 94 10/31/18 08:00 40 10/31/18 07:30 95 4 108/45 (66) 100 10/31/18 07:00 91 24 40 10/31/18 07:00 91 4 72/53 (59) 100 Intake and Output 10/31/18 11/01/18 19:00 07:00 Intake Total 907.50 ml 1573.75 ml Output Total 2120 ml Balance 907.50 ml -546.25 ml Free Water 50 ml IV Total 547.50 ml 1043.75 ml Tube Feeding 360 ml 480 ml Stool Total 120 ml Hemodialysis UF 2000 ml Laboratory Tests 11/01/18 05:15: Sodium Level [Pending], Potassium Level [Pending], Chloride Level [Pending], Carbon Dioxide Level [Pending], Blood Urea Nitrogen [Pending], Creatinine [ Pending], Estimat Glomerular Filtration Rate [Pending], Glucose Level [Pending] , Calcium Level [Pending], Total Bilirubin [Pending], Aspartate Amino Transf ( AST/SGOT) [Pending], Alanine Aminotransferase (ALT/SGPT) [Pending], Alkaline Phosphatase [Pending], Total Protein [Pending], Albumin [Pending], Globulin [ Pending], Luis Felipe-Weaver Virus Capsid Ag IgM Ab [Pending], Herpes Simplex Virus I IgM Ab (IFA) [Pending], Herpes Simplex Virus II IgM Ab (IFA [Pending], Monoscreen [Pending] Height (Feet): 5 Height (Inches): 2.00 Weight (Pounds): 203 General Appearance: moderate distress Neck: normal alignment Cardiovascular: tachycardia Respiratory/Chest: decreased breath sounds Abdomen: normal bowel sounds Objective Current Medications Medications (Trade) Dose Ordered Sig/Ashely Route PRN Reason Start Time Stop Time Status Last Admin Dose Admin Aspirin (Ecotrin) 81 mg DAILY ORAL 10/19/18 09:00 11/09/18 08:59 10/30/18 08:26 Calcium Carbonate (Tums) 500 mg BID GT 10/20/18 18:00 11/09/18 08:59 10/31/18 17:21 Chlorhexidine Gluconate (Anai-Hex 2%) 1 applic DAILY@2000 TOPIC 10/18/18 20:00 11/12/18 19:59 10/31/18 20:01 Dextrose (Dextrose 50%) 25 ml Q30M PRN IV Hypoglycemia 10/23/18 08:15 11/22/18 08:14 Dextrose (Dextrose 50%) 50 ml Q30M PRN IV Hypoglycemia 10/23/18 08:15 11/22/18 08:14 Dobutamine HCl 250 ml @ 10.05 mls/ hr Q24H IV 10/19/18 11:40 11/18/18 11:39 10/22/18 12:43 Dopamine HCl/ Dextrose 250 ml @ 0 mls/hr Q24H IV 10/19/18 12:45 11/18/18 12:44 10/20/18 17:43 Fluconazole/ Sodium Chloride 100 ml @ 100 mls/hr Q24H IV 10/28/18 20:00 11/04/18 19:59 10/31/18 20:01 Haloperidol Lactate (Haldol) 5 mg Q6H PRN IM Agitation 10/18/18 17:00 11/17/18 16:59 10/31/18 15:28 Insulin Aspart (NovoLOG) EVERY 6 HOURS SUBQ 10/30/18 12:00 11/22/18 08:59 11/01/18 05:38 Latanoprost (Xalatan) 1 drop BEDTIME BOTH EYES 10/18/18 21:00 11/10/18 20:59 10/31/18 20:42 Loperamide HCl (Imodium) 2 mg Q4H PRN ORAL Diarrhea 10/27/18 09:45 11/26/18 09:44 Meropenem 500 mg/ Sodium Chloride 50 ml @ 100 mls/hr Q24HRS IVPB 10/29/18 00:00 11/03/18 00:00 10/31/18 23:29 Midodrine (Pro-Amatine) 5 mg THREE TIMES A DAY ORAL 10/30/18 13:00 11/29/18 08:59 10/31/18 17:21 Norepinephrine Bitartrate 16 mg/ Dextrose 500 ml @ 0 mls/hr Q24H IV 10/20/18 18:00 11/19/18 17:59 10/31/18 23:28 Ondansetron HCl (Zofran) 4 mg Q8H PRN IVP Nausea & Vomiting 10/18/18 17:00 11/17/18 16:59 Promethazine HCl (Phenergan Plain) 6.25 mg Q6H PRN ORAL For Cough 10/18/18 16:45 11/10/18 04:32 Vancomycin HCl (Vanco rx to dose) 1 ea DAILY PRN MISC Per rx protocol 10/19/18 23:30 11/18/18 23:29 Vasopressin 100 units/Sodium Chloride 100 ml @ 2.4 mls/hr Q24H IV 10/22/18 15:00 11/21/18 14:59 10/25/18 15:13 Barry Schmitt MD Nov 01, 2018 06:47
--- NOTE | 2018-11-01 06:50 | NUR ---
RESPIRATORY NOTE: Received pt on [id number]% FiO2- peep of 5, tolerating well. pt's resting comfortably, eyes open, more awake and alert, follow simple commands. pt is orally intubated with ETT 7.5 @ 23 cm lips line, secured by anchor fast. Keny rhonchi diminished breath sounds upon auscultation, endotracheal suctioned moderate amount of thick/thin brown/ red/red specks/ small clots secretions and orally suctioned moderate thin/ frothy white oliveira secretions without any incidents. Alarms are set and audible, vent is plugged into the red outlet, ambu bag is at bedside. Vent circuits and sxn tubbing are secured and out of the way. Will continue to monitor pt.
[2018-11-01 06:54] LABS: ALANINE AMINOTRANSFERASE 61 U/L (12-78); ALBUMIN 1.2 G/DL (3.4-5.0); ALBUMIN/GLOBULIN RATIO 0.3 (1.0-2.7); ALKALINE PHOSPHATASE 250 U/L (46-116); ANION GAP 13 mmol/L (5-15); ASPARTATE AMINO TRANSFERASE 103 U/L (15-37); BILIRUBIN,TOTAL 5.7 MG/DL (0.2-1.0); BLOOD UREA NITROGEN 63 mg/dL (7-18); CALCIUM 8.1 MG/DL (8.5-10.1); CARBON DIOXIDE 23 MMOL/L (21-32); CHLORIDE 92 MMOL/L (98-107); CREATININE 3.2 MG/DL (0.55-1.30); POTASSIUM 3.5 MMOL/L (3.5-5.1); SODIUM 127 MMOL/L (136-145)
--- NOTE | 2018-11-01 07:01 | NUR ---
HAND-OFF: Report given to JACQUI ELLISON.
[2018-11-01 07:03] LABS: BILIRUBIN,DIRECT 4.7 MG/DL (0.0-0.3)
--- NOTE | 2018-11-01 07:30 | NUR ---
NURSE NOTES: Received report from Tello RN. Pt asleep but arousable, alert and oriented x 1-2. Pt able to follow simple commands. Pt on monitoring engineer, SR. Pt orally intubated ETT 7.5, 23 cm lip line, AC 20, TV 500, 40% FIO2, PEEP 5. OGT with nepro at 40 cc/hr. Rectal tube intact draining brown liquid stool to gravity. KIM PICC intact and RIJ cem intact. Levophed running at 30 mcg/hr. Safety measures in place with bed locked and in lowest position, side rails x3 up and bed alarm on. Will continue to monitor and continue plan of care.
--- NOTE | 2018-11-01 07:58 | Urology Progress Note ---
Assessment/Plan Assessment/Plan 1. Renal failure, which is acute on chronic. 2. Right-sided hydronephrosis. 3. Renal cyst. 4. Scrotal edema. 5. History of prostate cancer, status post radical prostatectomy. monitor renal fxn consider right ureteral stent or nephrostomy scrotal elevation consider cooper cath abx as ordered Subjective Allergies: Coded Allergies: PENICILLINS (Verified Allergy, Unknown, 10/09/18) Subjective vent, non-verbal Objective Last 24 Hour Vital Signs Date Time Temp Pulse Resp B/P (MAP) Pulse Ox O2 Delivery O2 Flow Rate FiO2 11/01/18 07:30 107 21 103/40 (61) 100 11/01/18 07:00 108 25 97/46 (63) 100 11/01/18 06:30 107 20 102/59 (73) 100 11/01/18 06:00 104 20 100/67 (78) 100 11/01/18 05:30 104 17 101/56 (71) 100 11/01/18 05:18 4 26 30 11/01/18 05:00 94 20 100/47 (64) 100 11/01/18 04:30 105 20 104/45 (64) 100 11/01/18 04:04 103 11/01/18 04:00 Mechanical Ventilator 11/01/18 04:00 98.9 105 26 97/33 (54) 100 11/01/18 04:00 30 11/01/18 03:30 105 2 102/59 (73) 100 11/01/18 03:00 105 9 94/27 (49) 100 11/01/18 02:56 102 25 30 11/01/18 02:30 102 0 100/46 (64) 100 11/01/18 02:00 105 26 93/39 (57) 100 11/01/18 01:30 105 28 93/47 (62) 100 11/01/18 01:18 102 28 30 11/01/18 01:00 106 28 94/43 (60) 100 11/01/18 00:30 103 27 104/40 (61) 100 11/01/18 00:00 Mechanical Ventilator 11/01/18 00:00 98.1 103 27 100/54 (69) 100 11/01/18 00:00 30 10/31/18 23:51 109 10/31/18 23:30 104 26 89/37 (54) 99 2/24/19 23:28 98/40 10/31/18 23:23 103 26 30 10/31/18 23:00 104 26 93/75 (81) 98 10/31/18 22:30 101 26 95/45 (62) 99 10/31/18 22:20 104 25 30 10/31/18 22:00 102 26 104/44 (64) 98 10/31/18 21:30 106 26 99/45 (63) 99 10/31/18 21:00 106 20 100/41 (60) 99 10/31/18 21:00 100/41 10/31/18 20:30 105 20 103/41 (61) 98 10/31/18 20:10 106 10/31/18 20:00 98.0 102 17 95/44 (61) 96 10/31/18 20:00 Mechanical Ventilator 10/31/18 20:00 95/44 10/31/18 20:00 26 10/31/18 19:30 100 21 84/37 (53) 96 10/31/18 19:29 103 24 30 10/31/18 19:00 105 32 86/38 (54) 96 10/31/18 19:00 86/38 10/31/18 18:30 98 7 85/30 (48) 95 10/31/18 18:00 97 15 93/31 (51) 95 10/31/18 17:30 102 0 96/37 (56) 97 10/31/18 17:13 105 32 40 10/31/18 17:00 100 0 95/42 (59) 96 10/31/18 16:30 101 8 92/40 (57) 95 10/31/18 16:00 106 10/31/18 16:00 Mechanical Ventilator 10/31/18 16:00 99.0 103 9 101/42 (61) 95 10/31/18 16:00 40 10/31/18 15:30 106 10 103/52 (69) 100 10/31/18 15:23 106 33 40 10/31/18 15:00 105 9 105/74 (84) 98 10/31/18 14:30 107 27 86/61 (69) 99 10/31/18 14:07 107/40 10/31/18 14:00 104 0 92/38 (56) 98 10/31/18 13:30 105 13 107/40 (62) 96 10/31/18 13:23 105 33 40 10/31/18 13:02 100 20 93/48 (63) 100 10/31/18 12:43 98/68 10/31/18 12:30 97 9 98/68 (78) 97 10/31/18 12:00 95 10/31/18 12:00 Mechanical Ventilator 10/31/18 12:00 99.0 93 0 84/53 (63) 97 10/31/18 12:00 40 10/31/18 11:30 97 23 103/85 (91) 97 10/31/18 11:27 104 32 40 10/31/18 11:00 97 29 118/52 (74) 98 10/31/18 10:52 115/71 10/31/18 10:30 96 27 115/71 (86) 99 10/31/18 10:00 96 26 116/57 (76) 100 10/31/18 09:30 96 11 113/52 (72) 100 10/31/18 09:12 97 29 40 10/31/18 09:10 100 10/31/18 09:07 101 38 40 10/31/18 09:00 96 18 112/52 (72) 100 10/31/18 08:30 96 10 107/57 (74) 100 10/31/18 08:00 Mechanical Ventilator 10/31/18 08:00 98.7 94 4 110/42 (64) 100 10/31/18 08:00 94 10/31/18 08:00 40 Intake and Output 10/31/18 11/01/18 19:00 07:00 Intake Total 907.50 ml 1614.00 ml Output Total 2120 ml Balance 907.50 ml -506.00 ml Free Water 50 ml IV Total 547.50 ml 1044.00 ml Tube Feeding 360 ml 520 ml Stool Total 120 ml Hemodialysis UF 2000 ml Microbiology Date/Time Source Procedure Growth Status 10/20/18 06:10 Blood Blood Culture - Final NO GROWTH AFTER 5 DAYS Complete 10/30/18 03:30 Sputum Induced Gram Stain - Final Complete 10/30/18 03:30 Sputum Induced Sputum Culture - Final NORMAL UPPER RESPIRATORY ADDI PRESENT Complete 10/24/18 01:35 Stool Clostridium difficile Toxin Assay - Final Complete Current Medications Medications (Trade) Dose Ordered Sig/Ashely Route PRN Reason Start Time Stop Time Status Last Admin Dose Admin Aspirin (Ecotrin) 81 mg DAILY ORAL 10/19/18 09:00 11/09/18 08:59 10/30/18 08:26 Calcium Carbonate (Tums) 500 mg BID GT 10/20/18 18:00 11/09/18 08:59 10/31/18 17:21 Chlorhexidine Gluconate (Anai-Hex 2%) 1 applic DAILY@2000 TOPIC 10/18/18 20:00 11/12/18 19:59 10/31/18 20:01 Dextrose (Dextrose 50%) 25 ml Q30M PRN IV Hypoglycemia 10/23/18 08:15 11/22/18 08:14 Dextrose (Dextrose 50%) 50 ml Q30M PRN IV Hypoglycemia 10/23/18 08:15 11/22/18 08:14 Dobutamine HCl 250 ml @ 10.05 mls/ hr Q24H IV 10/19/18 11:40 11/18/18 11:39 10/22/18 12:43 Dopamine HCl/ Dextrose 250 ml @ 0 mls/hr Q24H IV 10/19/18 12:45 11/18/18 12:44 10/20/18 17:43 Fluconazole/ Sodium Chloride 100 ml @ 100 mls/hr Q24H IV 10/28/18 20:00 11/04/18 19:59 10/31/18 20:01 Haloperidol Lactate (Haldol) 5 mg Q6H PRN IM Agitation 10/18/18 17:00 11/17/18 16:59 10/31/18 15:28 Insulin Aspart (NovoLOG) EVERY 6 HOURS SUBQ 10/30/18 12:00 11/22/18 08:59 11/01/18 05:38 Latanoprost (Xalatan) 1 drop BEDTIME BOTH EYES 10/18/18 21:00 11/10/18 20:59 10/31/18 20:42 Loperamide HCl (Imodium) 2 mg Q4H PRN ORAL Diarrhea 10/27/18 09:45 11/26/18 09:44 Meropenem 500 mg/ Sodium Chloride 50 ml @ 100 mls/hr Q24HRS IVPB 10/29/18 00:00 11/03/18 00:00 10/31/18 23:29 Midodrine (Pro-Amatine) 5 mg THREE TIMES A DAY ORAL 10/30/18 13:00 11/29/18 08:59 10/31/18 17:21 Norepinephrine Bitartrate 16 mg/ Dextrose 500 ml @ 0 mls/hr Q24H IV 10/20/18 18:00 11/19/18 17:59 10/31/18 23:28 Ondansetron HCl (Zofran) 4 mg Q8H PRN IVP Nausea & Vomiting 10/18/18 17:00 11/17/18 16:59 Promethazine HCl (Phenergan Plain) 6.25 mg Q6H PRN ORAL For Cough 10/18/18 16:45 11/10/18 04:32 Vancomycin HCl (Vanco rx to dose) 1 ea DAILY PRN MISC Per rx protocol 10/19/18 23:30 11/18/18 23:29 Vasopressin 100 units/Sodium Chloride 100 ml @ 2.4 mls/hr Q24H IV 10/22/18 15:00 11/21/18 14:59 10/25/18 15:13 Laboratory Tests 11/01/18 05:15: Sodium Level 127L, Potassium Level 3.5, Chloride Level 92L, Carbon Dioxide Level 23, Anion Gap 13, Blood Urea Nitrogen 63H, Creatinine 3.2H, Estimat Glomerular Filtration Rate , Glucose Level 161H, Calcium Level 8.1L, Total Bilirubin 5.7H, Direct Bilirubin 4.7H, Aspartate Amino Transf (AST/SGOT) 103H, Alanine Aminotransferase (ALT/SGPT) 61, Alkaline Phosphatase 250H, Total Protein 5.5L, Albumin 1.2L, Globulin 4.3, Albumin/Globulin Ratio 0.3L, Luis Felipe- Weaver Virus Capsid Ag IgM Ab [Pending], Herpes Simplex Virus I IgM Ab (IFA) [ Pending], Herpes Simplex Virus II IgM Ab (IFA [Pending], Monoscreen [Pending] Height (Feet): 5 Height (Inches): 2.00 Weight (Pounds): 203 Objective exam stable Aaron Eduardo MD Nov 01, 2018 07:58
[2018-11-01] MEDS: Tums 500mg GT SCH ×2 (08:13→18:00)
[2018-11-01] MEDS: Aspirin EC 81mg tab ORAL SCH (08:14)
--- NOTE | 2018-11-01 09:30 | NUR ---
RESPIRATORY NOTE: Placed Pt on cpap PS 8. Pt is tolerating well. Will continue to monitor.
[2018-11-01] MEDS: Norepinephrine Bitartrate 16 MG in D5W 500ml 484 ML IV SCH ×2 (09:35→20:13)
--- NOTE | 2018-11-01 09:57 | NUR ---
NURSE NOTES: Pt turned and repositioned. No acute distress. Will continue to monitor.
--- NOTE | 2018-11-01 10:10 | NUR ---
RESPIRATORY NOTE: Put pt back on AC mode due to desaturation,RR> 40, low Vt >100ml. Pt is calm, resting. NO SOB or distress noted. RN made aware. Will continue to monitor.
[2018-11-01] MEDS: DOBUTamine 250mg/250ml Premix 250 ML IV SCH ×4 (11:19→23:08)
--- NOTE | 2018-11-01 11:35 | NUR ---
NURSE NOTES: Suctioned pt. Oral care done. No acute distress. Will continue to monitor.
[2018-11-01] MEDS ORDERED: Heparin Sod 1000 units/ml 10ml IV PRN (12:00)
--- NOTE | 2018-11-01 12:03 | Nephrology Progress Note ---
Assessment/Plan Problem List: (1) Acute kidney injury superimposed on CKD Assessment: no recovery (2) CHF (congestive heart failure) (3) NSTEMI (non-ST elevated myocardial infarction) (4) Hypotension Assessment: ON HIGH DOSE LEVOPHED (5) Pneumonia (6) Hypoglycemia (7) Respiratory failure, acute (8) Sepsis (9) Hyponatremia Assessment: BETTER Plan HD tomorrow Discussed with RN continue pressors abxs per ID follow labs Vent support Trach ? TF Subjective Subjective In NAD Objective Objective Last 24 Hour Vital Signs Date Time Temp Pulse Resp B/P (MAP) Pulse Ox O2 Delivery O2 Flow Rate FiO2 11/01/18 11:30 100 20 94/61 (72) 99 11/01/18 11:19 90/55 11/01/18 11:00 103 22 99/51 (67) 98 11/01/18 10:30 106 0 90/55 (67) 97 11/01/18 10:00 91 6 79/27 (44) 100 11/01/18 09:35 97/56 11/01/18 09:30 109 21 85/16 (39) 100 11/01/18 09:30 93 31 30 11/01/18 09:30 100 11/01/18 09:00 109 31 97/56 (70) 100 11/01/18 08:30 109 32 97/59 (72) 100 11/01/18 08:00 30 11/01/18 08:00 Mechanical Ventilator 11/01/18 08:00 99.2 102 15 79/43 (55) 99 11/01/18 08:00 107 11/01/18 07:30 107 21 103/40 (61) 100 11/01/18 07:00 108 25 97/46 (63) 100 11/01/18 06:50 104 32 30 11/01/18 06:30 107 20 102/59 (73) 100 11/01/18 06:00 104 20 100/67 (78) 100 11/01/18 05:30 104 17 101/56 (71) 100 11/01/18 05:18 4 26 30 11/01/18 05:00 94 20 100/47 (64) 100 11/01/18 04:30 105 20 104/45 (64) 100 11/01/18 04:04 103 11/01/18 04:00 Mechanical Ventilator 11/01/18 04:00 98.9 105 26 97/33 (54) 100 11/01/18 04:00 30 11/01/18 03:30 105 2 102/59 (73) 100 11/01/18 03:00 105 9 94/27 (49) 100 11/01/18 02:56 102 25 30 11/01/18 02:30 102 0 100/46 (64) 100 11/01/18 02:00 105 26 93/39 (57) 100 11/01/18 01:30 105 28 93/47 (62) 100 11/01/18 01:18 102 28 30 11/01/18 01:00 106 28 94/43 (60) 100 11/01/18 00:30 103 27 104/40 (61) 100 11/01/18 00:00 Mechanical Ventilator 11/01/18 00:00 98.1 103 27 100/54 (69) 100 11/01/18 00:00 30 10/31/18 23:51 109 10/31/18 23:30 104 26 89/37 (54) 99 10/31/18 23:28 98/40 10/31/18 23:23 103 26 30 10/31/18 23:00 104 26 93/75 (81) 98 10/31/18 22:30 101 26 95/45 (62) 99 10/31/18 22:20 104 25 30 10/31/18 22:00 102 26 104/44 (64) 98 10/31/18 21:30 106 26 99/45 (63) 99 10/31/18 21:00 106 20 100/41 (60) 99 10/31/18 21:00 100/41 10/31/18 20:30 105 20 103/41 (61) 98 10/31/18 20:10 106 10/31/18 20:00 98.0 102 17 95/44 (61) 96 10/31/18 20:00 Mechanical Ventilator 10/31/18 20:00 95/44 10/31/18 20:00 26 10/31/18 19:30 100 21 84/37 (53) 96 10/31/18 19:29 103 24 30 10/31/18 19:00 105 32 86/38 (54) 96 10/31/18 19:00 86/38 10/31/18 18:30 98 7 85/30 (48) 95 10/31/18 18:00 97 15 93/31 (51) 95 10/31/18 17:30 102 0 96/37 (56) 97 10/31/18 17:13 105 32 40 10/31/18 17:00 100 0 95/42 (59) 96 10/31/18 16:30 101 8 92/40 (57) 95 10/31/18 16:00 106 10/31/18 16:00 Mechanical Ventilator 10/31/18 16:00 99.0 103 9 101/42 (61) 95 10/31/18 16:00 40 10/31/18 15:30 106 10 103/52 (69) 100 10/31/18 15:23 106 33 40 10/31/18 15:00 105 9 105/74 (84) 98 10/31/18 14:30 107 27 86/61 (69) 99 10/31/18 14:07 107/40 10/31/18 14:00 104 0 92/38 (56) 98 10/31/18 13:30 105 13 107/40 (62) 96 10/31/18 13:23 105 33 40 10/31/18 13:02 100 20 93/48 (63) 100 10/31/18 12:43 98/68 10/31/18 12:30 97 9 98/68 (78) 97 Intake and Output 10/31/18 11/01/18 19:00 07:00 Intake Total 907.50 ml 1614.00 ml Output Total 2120 ml Balance 907.50 ml -506.00 ml Free Water 50 ml IV Total 547.50 ml 1044.00 ml Tube Feeding 360 ml 520 ml Stool Total 120 ml Hemodialysis UF 2000 ml Laboratory Tests 11/01/18 05:15: Sodium Level 127L, Potassium Level 3.5, Chloride Level 92L, Carbon Dioxide Level 23, Anion Gap 13, Blood Urea Nitrogen 63H, Creatinine 3.2H, Estimat Glomerular Filtration Rate , Glucose Level 161H, Calcium Level 8.1L, Total Bilirubin 5.7H, Direct Bilirubin 4.7H, Aspartate Amino Transf (AST/SGOT) 103H, Alanine Aminotransferase (ALT/SGPT) 61, Alkaline Phosphatase 250H, Total Protein 5.5L, Albumin 1.2L, Globulin 4.3, Albumin/Globulin Ratio 0.3L, Cytomegalovirus DNA Qual (PCR) [Pending], Luis Felipe-Weaver Virus Capsid Ag IgM Ab [ Pending], Herpes Simplex Virus I IgM Ab (IFA) [Pending], Herpes Simplex Virus II IgM Ab (IFA [Pending], Monoscreen [Pending] Height (Feet): 5 Height (Inches): 2.00 Weight (Pounds): 203 Cardiovascular: tachycardia Respiratory/Chest: rhonchi - bilaterally Extremities: severe edema Mario Porter MD Nov 01, 2018 12:03
--- NOTE | 2018-11-01 12:25 | Pulmonolgy Critical Care Note ---
Critical Care - Asmt/Plan Problems: (1) Respiratory failure, acute (2) Ventilator dependence (3) CHF (congestive heart failure) (4) CAD (coronary artery disease) (5) NSTEMI (non-ST elevated myocardial infarction) (6) Respiratory acidosis (7) Hemoptysis (8) Hypoglycemia (9) Pneumonia (10) Hypotension (11) Elevated d-dimer (12) Acute kidney injury superimposed on CKD Assessment & Plan: S/P initiation of HD (13) Hyponatremia (14) Sepsis Respiratory: monitor respiratory rate, CXR Cardiac: continue pressors, continue to monitor HR/BP, other - STAT TTE, ? inotropes Renal: other - HD with UF as able, consider inotropic support Infectious Disease: check cultures, continue antibiotics - STEVE and FLUCON per ID Gastrointestinal: continue feedings/current rate Endocrine: monitor blood sugar, other - F/U ENDo recs Hematologic: monitor H/H - and platelets Neurologic: keep patient comfortable Prophylaxis: Protonix, SCDs Disposition: keep in ICU Time Spent (Minutes): 40 Notes Reviewed: counter intelligence agent, cardio, renal, ID, GI Critical Care - Objective Last 24 Hour Vital Signs Date Time Temp Pulse Resp B/P (MAP) Pulse Ox O2 Delivery O2 Flow Rate FiO2 11/01/18 11:30 100 20 94/61 (72) 99 11/01/18 11:19 90/55 11/01/18 11:00 103 22 99/51 (67) 98 11/01/18 10:30 106 0 90/55 (67) 97 11/01/18 10:00 91 6 79/27 (44) 100 11/01/18 09:35 97/56 11/01/18 09:30 109 21 85/16 (39) 100 11/01/18 09:30 93 31 30 11/01/18 09:30 100 11/01/18 09:00 109 31 97/56 (70) 100 11/01/18 08:30 109 32 97/59 (72) 100 11/01/18 08:00 30 11/01/18 08:00 Mechanical Ventilator 11/01/18 08:00 99.2 102 15 79/43 (55) 99 11/01/18 08:00 107 11/01/18 07:30 107 21 103/40 (61) 100 11/01/18 07:00 108 25 97/46 (63) 100 11/01/18 06:50 104 32 30 11/01/18 06:30 107 20 102/59 (73) 100 11/01/18 06:00 104 20 100/67 (78) 100 11/01/18 05:30 104 17 101/56 (71) 100 11/01/18 05:18 4 26 30 11/01/18 05:00 94 20 100/47 (64) 100 11/01/18 04:30 105 20 104/45 (64) 100 11/01/18 04:04 103 11/01/18 04:00 Mechanical Ventilator 11/01/18 04:00 98.9 105 26 97/33 (54) 100 11/01/18 04:00 30 11/01/18 03:30 105 2 102/59 (73) 100 11/01/18 03:00 105 9 94/27 (49) 100 11/01/18 02:56 102 25 30 11/01/18 02:30 102 0 100/46 (64) 100 11/01/18 02:00 105 26 93/39 (57) 100 11/01/18 01:30 105 28 93/47 (62) 100 11/01/18 01:18 102 28 30 11/01/18 01:00 106 28 94/43 (60) 100 11/01/18 00:30 103 27 104/40 (61) 100 11/01/18 00:00 Mechanical Ventilator 11/01/18 00:00 98.1 103 27 100/54 (69) 100 11/01/18 00:00 30 10/31/18 23:51 109 10/31/18 23:30 104 26 89/37 (54) 99 10/31/18 23:28 98/40 10/31/18 23:23 103 26 30 10/31/18 23:00 104 26 93/75 (81) 98 10/31/18 22:30 101 26 95/45 (62) 99 10/31/18 22:20 104 25 30 10/31/18 22:00 102 26 104/44 (64) 98 10/31/18 21:30 106 26 99/45 (63) 99 10/31/18 21:00 106 20 100/41 (60) 99 10/31/18 21:00 100/41 10/31/18 20:30 105 20 103/41 (61) 98 10/31/18 20:10 106 10/31/18 20:00 98.0 102 17 95/44 (61) 96 10/31/18 20:00 Mechanical Ventilator 10/31/18 20:00 95/44 10/31/18 20:00 26 10/31/18 19:30 100 21 84/37 (53) 96 10/31/18 19:29 103 24 30 10/31/18 19:00 105 32 86/38 (54) 96 10/31/18 19:00 86/38 10/31/18 18:30 98 7 85/30 (48) 95 10/31/18 18:00 97 15 93/31 (51) 95 10/31/18 17:30 102 0 96/37 (56) 97 10/31/18 17:13 105 32 40 10/31/18 17:00 100 0 95/42 (59) 96 10/31/18 16:30 101 8 92/40 (57) 95 10/31/18 16:00 106 10/31/18 16:00 Mechanical Ventilator 10/31/18 16:00 99.0 103 9 101/42 (61) 95 10/31/18 16:00 40 10/31/18 15:30 106 10 103/52 (69) 100 10/31/18 15:23 106 33 40 10/31/18 15:00 105 9 105/74 (84) 98 10/31/18 14:30 107 27 86/61 (69) 99 10/31/18 14:07 107/40 10/31/18 14:00 104 0 92/38 (56) 98 10/31/18 13:30 105 13 107/40 (62) 96 10/31/18 13:23 105 33 40 10/31/18 13:02 100 20 93/48 (63) 100 10/31/18 12:43 98/68 10/31/18 12:30 97 9 98/68 (78) 97 Status: awake - intubated Condition: critical HEENT: atraumatic, normocephalic Neck: full ROM Lungs: rales Heart: HR/BP unstable Abdomen: soft, non-tender, active bowel sounds Extremities: edema - 2+ x 4, cyanosis - no, clubbing - no Micro: Microbiology Date/Time Source Procedure Growth Status 10/30/18 03:30 Sputum Induced Gram Stain - Final Complete 10/30/18 03:30 Sputum Induced Sputum Culture - Final NORMAL UPPER RESPIRATORY ADDI PRESENT Complete Accucheck: 172 Critical Care - Subjective ROS Limited/Unobtainable: Yes ICU Day: 15 Intubation Day: 14 Interval Events: 30 mcg NE S/P HD, unable to remove volume Condition: critical IV Access: PICC, central - R IJ cem EKG Rhythm: Sinus Rhythm - with 1st deg AVB FI02: 30 Vent Support Breath Rate: 20 Vent Support Mode: CPAP Vent Tidal Volume: 500 Sputum Amount: Moderate PEEP: 5.0 PIP: 14 Fluids: SLIV Drips: NE@30 Tube Feeding Amount: 40 I&O: Intake and Output 10/31/18 11/01/18 18:59 06:59 Intake Total 885.00 ml 1660.00 ml Output Total 2120 ml Balance 885.00 ml -460.00 ml Free Water 50 ml IV Total 525.00 ml 1100.00 ml Tube Feeding 360 ml 510 ml Stool Total 120 ml Hemodialysis UF 2000 ml # Bowel Movements 50 Subjective: ZACHARY ET-Tube: 7.5 ET Position: 23 Labs: Laboratory Tests Test 11/01/18 05:15 Sodium Level 127 MMOL/L (136-145) L Potassium Level 3.5 MMOL/L (3.5-5.1) Chloride Level 92 MMOL/L (98-107) L Carbon Dioxide Level 23 MMOL/L (21-32) Anion Gap 13 mmol/L (5-15) Blood Urea Nitrogen 63 mg/dL (7-18) H Creatinine 3.2 MG/DL (0.55-1.30) H Estimat Glomerular Filtration Rate mL/min (>60) Glucose Level 161 MG/DL (74-106) H Calcium Level 8.1 MG/DL (8.5-10.1) L Total Bilirubin 5.7 MG/DL (0.2-1.0) H Direct Bilirubin 4.7 MG/DL (0.0-0.3) H Aspartate Amino Transf (AST/SGOT) 103 U/L (15-37) H Alanine Aminotransferase (ALT/SGPT) 61 U/L (12-78) Alkaline Phosphatase 250 U/L (46-116) H Total Protein 5.5 G/DL (6.4-8.2) L Albumin 1.2 G/DL (3.4-5.0) L Globulin 4.3 g/dL Albumin/Globulin Ratio 0.3 (1.0-2.7) L Cytomegalovirus DNA Qual (PCR) Pending Luis Felipe-Weaver Virus Capsid Ag IgM Ab Pending Herpes Simplex Virus I IgM Ab (IFA) Pending Herpes Simplex Virus II IgM Ab (IFA Pending Monoscreen Pending Chidi Bourne MD Nov 01, 2018 12:25
[2018-11-01] MEDS: DOPamine 400mg/250ml 250 ML IV SCH (12:45)
--- NOTE | 2018-11-01 13:00 | Diagnostic Imaging Report ---
Indication: Dyspnea Comparison: 10/30/2018 A single view chest radiograph was obtained. Findings: Tubes and lines stable. Interstitial edema suspected. Component of alveolar airspace disease also noted at the lung bases. Suspected small bilateral pleural effusions. IMPRESSION: No significant change from the prior exam. Congestive heart failure suspected.
--- NOTE | 2018-11-01 13:02 | NUR ---
RADIOLOGY DEPT CHEST X-RAY DONE.-P.DYE
--- NOTE | 2018-11-01 13:25 | NUR ---
NURSE NOTES: Dr Bourne here to see pt. Dr ordered to re-start dobutamine drip. SBP 80s-90s. Levo at 30 mcg. Will continue to monitor.
--- NOTE | 2018-11-01 14:04 | NUR ---
NURSE NOTES: Called [facility] to schedule pt for tomorrow. No acute distress. Will continue to monitor.
--- NOTE | 2018-11-01 14:10 | NUR ---
RESPIRATORY NOTE: Pt got tracheostomy done and back in the unit, with shiley cuffed size 8.0, same vent setting. No SOB or resp distress noted. Trach inline suction changed, HME changed, spare trach at bed side. Will continue to monitor. Addendum: 11/01/18 at 1849 by Andrea Ellsworth Cespedes RT Wrong pt's chart
[2018-11-01] MEDS: Vasopressin 100 UNITS in NS 95 ML IV SCH (15:00)
--- NOTE | 2018-11-01 15:15 | Infectious Diseases Prog Note ---
Assessment/Plan Assessment/Plan A) 1) sepsis, shock, leukocytosis, pna, ? fungemia, ? c.diff., fungemia risk, respiratory failure, ? line infection - leukocytosis persists - remains on pressors - more alert overall - c.diff. - negative - sc - normal lance 2) respiratory failure, vent, dm, htn, fred, HD, nstemi, anemia, cad, chf, hyponatremia 3) , pvd, cidp, prostate ca, ckd 4) sh-neg, fh-nc, mar noted, orders and notes reviewed 5) allergies - pcn 6) d/w RN P) 1) meropenem, vancomycin, change diflucan to micafungin for expanded fungal coverage 2) monitor labs and chest x-ray, check blood cultures to rule out line infection 3) continue treatment per primary team and consultants 4) condition critical 5) continue icu supportive care 6) see multiple orders Subjective Constitutional: Denies: fever HEENT: Reports: congestion Respiratory: Reports: shortness of breath Cardiovascular: Reports: other - + pressors Gastrointestinal/Abdominal: Reports: diarrhea, other - + rectal tube; Denies: nausea, vomiting Neurologic: Reports: weakness, other - lethargic but opens eyes, somewhat more alert Psychiatric: Reports: other - na Skin: Denies: rash Endocrine: Reports: other - na Hematologic: Denies: bleeding Musculoskeletal: Reports: other - weakness Allergies: Coded Allergies: PENICILLINS (Verified Allergy, Unknown, 10/09/18) Objective Vital Signs Last 24 Hour Vital Signs Date Time Temp Pulse Resp B/P (MAP) Pulse Ox O2 Delivery O2 Flow Rate FiO2 11/01/18 14:30 106 19 87/41 (56) 99 11/01/18 14:00 106 10 92/43 (59) 100 11/01/18 13:30 102 0 85/38 (54) 99 11/01/18 13:14 96/51 11/01/18 13:11 114 11/01/18 13:00 99.0 106 18 96/51 (66) 98 11/01/18 13:00 106 25 30 11/01/18 12:45 95/36 11/01/18 12:42 95/36 11/01/18 12:30 104 22 95/36 (55) 99 11/01/18 12:00 30 11/01/18 12:00 101 4 78/34 (49) 100 11/01/18 12:00 Mechanical Ventilator 11/01/18 11:30 100 20 94/61 (72) 99 11/01/18 11:19 90/55 11/01/18 11:00 103 22 99/51 (67) 98 11/01/18 10:30 102 26 30 11/01/18 10:30 106 0 90/55 (67) 97 11/01/18 10:10 110 27 30 11/01/18 10:00 91 6 79/27 (44) 100 11/01/18 09:35 97/56 11/01/18 09:30 109 21 85/16 (39) 100 11/01/18 09:30 93 31 30 11/01/18 09:30 100 11/01/18 09:00 109 31 97/56 (70) 100 11/01/18 08:30 109 32 97/59 (72) 100 11/01/18 08:00 30 11/01/18 08:00 Mechanical Ventilator 11/01/18 08:00 99.2 102 15 79/43 (55) 99 11/01/18 08:00 107 11/01/18 07:30 107 21 103/40 (61) 100 11/01/18 07:00 108 25 97/46 (63) 100 11/01/18 06:50 104 32 30 11/01/18 06:30 107 20 102/59 (73) 100 11/01/18 06:00 104 20 100/67 (78) 100 11/01/18 05:30 104 17 101/56 (71) 100 11/01/18 05:18 4 26 30 11/01/18 05:00 94 20 100/47 (64) 100 11/01/18 04:30 105 20 104/45 (64) 100 11/01/18 04:04 103 11/01/18 04:00 Mechanical Ventilator 11/01/18 04:00 98.9 105 26 97/33 (54) 100 11/01/18 04:00 30 11/01/18 03:30 105 2 102/59 (73) 100 11/01/18 03:00 105 9 94/27 (49) 100 11/01/18 02:56 102 25 30 11/01/18 02:30 102 0 100/46 (64) 100 11/01/18 02:00 105 26 93/39 (57) 100 11/01/18 01:30 105 28 93/47 (62) 100 11/01/18 01:18 102 28 30 11/01/18 01:00 106 28 94/43 (60) 100 11/01/18 00:30 103 27 104/40 (61) 100 11/01/18 00:00 Mechanical Ventilator 11/01/18 00:00 98.1 103 27 100/54 (69) 100 11/01/18 00:00 30 10/31/18 23:51 109 10/31/18 23:30 104 26 89/37 (54) 99 10/31/18 23:28 98/40 10/31/18 23:23 103 26 30 10/31/18 23:00 104 26 93/75 (81) 98 10/31/18 22:30 101 26 95/45 (62) 99 10/31/18 22:20 104 25 30 10/31/18 22:00 102 26 104/44 (64) 98 10/31/18 21:30 106 26 99/45 (63) 99 10/31/18 21:00 106 20 100/41 (60) 99 10/31/18 21:00 100/41 10/31/18 20:30 105 20 103/41 (61) 98 10/31/18 20:10 106 10/31/18 20:00 98.0 102 17 95/44 (61) 96 10/31/18 20:00 Mechanical Ventilator 10/31/18 20:00 95/44 10/31/18 20:00 26 10/31/18 19:30 100 21 84/37 (53) 96 10/31/18 19:29 103 24 30 10/31/18 19:00 105 32 86/38 (54) 96 10/31/18 19:00 86/38 10/31/18 18:30 98 7 85/30 (48) 95 10/31/18 18:00 97 15 93/31 (51) 95 10/31/18 17:30 102 0 96/37 (56) 97 10/31/18 17:13 105 32 40 10/31/18 17:00 100 0 95/42 (59) 96 10/31/18 16:30 101 8 92/40 (57) 95 2/24/19 16:00 106 10/31/18 16:00 Mechanical Ventilator 10/31/18 16:00 99.0 103 9 101/42 (61) 95 10/31/18 16:00 40 10/31/18 15:30 106 10 103/52 (69) 100 10/31/18 15:23 106 33 40 Height (Feet): 5 Height (Inches): 2.00 Weight (Pounds): 203 General Appearance: other - on vent, opens eyes, on pressors, fi02-30% HEENT: normocephalic, anicteric, status post trach Respiratory/Chest: crackles/rales, rhonchi - bilaterally Cardiovascular: normal rate, regular rhythm, no gallop/murmur, no JVD Abdomen: normal bowel sounds, soft, non tender, no organomegaly, non distended Genitourinary: other - no cooper Extremities: no cyanosis Skin: no rash Neurologic/Psychiatric: other - weak but opens eyes, overall more alert Lymphatic: no neck adenopathy Musculoskeletal: no effusion Objective 10/21/18 - chest x-ray - Findings: Bilateral small pleural effusions are unchanged. Stable satisfactory positions of endotracheal tube, right external jugular temporary dialysis catheter, left arm PICC. Interim placement of a nasogastric tube, tip which projects beyond the edge of image, documented to be intragastric on an earlier abdominal radiograph. Previously demonstrated right basilar interstitial opacities appear improved Impression: Interim enteric feeding tube placement. Slight clearing of previously demonstrated right basilar interstitial opacities. Otherwise, little chart changer 2 days, findings as noted Chest x-ray - 10/26/18 - Impression: Worsening pulmonary interstitial and airspace edema. Stable left, increasing right pleural effusions, both small Satisfactory tube and line positions, as described 10/28/18 - chest x-ray - Comparison: 10/26/2018 Findings: Gastric tube appears retracted, tip projecting at or just beyond the gastroesophageal junction. Stable satisfactory position of endotracheal tube, left arm PICC, right jugular temporary dialysis catheter. There is increased airspace consolidation in the right mid and lower lung. There is suggestion of increased retrocardiac opacity, although suspect that this is an artifact of decreased exposure as compared to prior study. Bilateral pleural effusions are again demonstrated. Impression: New or increased infiltrate in the right mid and lower lung Somewhat high position of gastric tube; advancement recommended. This finding was phoned to ICU charge nurse Brenda at the time of interpretation. Other stable findings as described CT scan abdomen and pelvis - 10/28/18 IMPRESSION: Anasarca, with diffuse edema of the subcutaneous fat and to a lesser extent the mediastinal and abdominal fat, as well as pleural fluid and ascites Basilar pulmonary parenchymal consolidation and atelectasis. Extensive upper lobe reticular and nodular interstitial and airspace opacities. Most likely on the basis of pulmonary edema, given other findings, but infectious or noninfectious inflammatory etiologies also possible. Bilateral small pleural effusions, as mentioned above Cardiomegaly Minimal pericardial fluid Tube and line positions as described Evidence of prior prostatectomy Right hydronephrosis. Right hydroureter, with appears to terminate in a 4.9 x 1.2 cm area of soft tissue opacity in the right side of the pelvis adjacent to the ureteral orifice with associated surgical clips. This may indicate ureteral obstruction secondary to scar tissue versus a recurrent pelvic mass. Hydronephrosis also noted on prior abdominal ultrasound of 10/22/2018 Ascites, as mentioned above Possible hepatic surface nodularity, if real could indicate cirrhosis Surgically absent gallbladder Chest x-ray - 11/01/18 - Comparison: 10/30/2018 A single view chest radiograph was obtained. Findings: Tubes and lines stable. Interstitial edema suspected. Component of alveolar airspace disease also noted at the lung bases. Suspected small bilateral pleural effusions. IMPRESSION: No significant change from the prior exam. Congestive heart failure suspected. Microbiology Date/Time Source Procedure Growth Status 10/20/18 06:10 Blood Blood Culture - Final NO GROWTH AFTER 5 DAYS Complete 10/30/18 03:30 Sputum Induced Gram Stain - Final Complete 10/30/18 03:30 Sputum Induced Sputum Culture - Final NORMAL UPPER RESPIRATORY LANCE PRESENT Complete 10/24/18 01:35 Stool Clostridium difficile Toxin Assay - Final Complete Microbiology Date/Time Source Procedure Growth Status 10/30/18 03:30 Sputum Induced Gram Stain - Final Complete 10/30/18 03:30 Sputum Induced Sputum Culture - Final NORMAL UPPER RESPIRATORY LANCE PRESENT Complete Labs Test 10/30/18 05:30 10/30/18 13:05 10/31/18 05:10 11/01/18 05:15 White Blood Count 15.1 K/UL (4.8-10.8) Red Blood Count 3.10 M/UL (4.70-6.10) Hemoglobin 8.4 G/DL (14.2-18.0) Hematocrit 27.3 % (42.0-52.0) Mean Corpuscular Volume 88 FL (80-99) Mean Corpuscular Hemoglobin 27.2 PG (27.0-31.0) Mean Corpuscular Hemoglobin Concent 30.9 G/DL (32.0-36.0) Red Cell Distribution Width 24.9 % (11.6-14.8) Platelet Count 65 K/UL (150-450) Mean Platelet Volume 8.5 FL (6.5-10.1) Neutrophils (%) (Auto) % (45.0-75.0) Lymphocytes (%) (Auto) % (20.0-45.0) Monocytes (%) (Auto) % (1.0-10.0) Eosinophils (%) (Auto) % (0.0-3.0) Basophils (%) (Auto) % (0.0-2.0) Differential Total Cells Counted 100 Neutrophils % (Manual) 97 % (45-75) Lymphocytes % (Manual) 2 % (20-45) Monocytes % (Manual) 1 % (1-10) Eosinophils % (Manual) 0 % (0-3) Basophils % (Manual) 0 % (0-2) Band Neutrophils 0 % (0-8) Platelet Estimate Decreased Platelet Morphology Normal Polychromasia 1+ Hypochromasia 1+ Anisocytosis 2+ Sodium Level 128 MMOL/L (136-145) 126 MMOL/L (136-145) 127 MMOL/L (136-145) Potassium Level 3.9 MMOL/L (3.5-5.1) 4.7 MMOL/L (3.5-5.1) 3.5 MMOL/L (3.5-5.1) Chloride Level 93 MMOL/L (98-107) 92 MMOL/L (98-107) 92 MMOL/L (98-107) Carbon Dioxide Level 24 MMOL/L (21-32) 21 MMOL/L (21-32) 23 MMOL/L (21-32) Anion Gap 11 mmol/L (5-15) 13 mmol/L (5-15) 13 mmol/L (5-15) Blood Urea Nitrogen 66 mg/dL (7-18) 81 mg/dL (7-18) 63 mg/dL (7-18) Creatinine 3.8 MG/DL (0.55-1.30) 4.1 MG/DL (0.55-1.30) 3.2 MG/DL (0.55-1.30) Estimat Glomerular Filtration Rate mL/min (>60) mL/min (>60) mL/min (>60) Glucose Level 123 MG/DL (74-106) 156 MG/DL (74-106) 161 MG/DL (74-106) Calcium Level 8.6 MG/DL (8.5-10.1) 8.6 MG/DL (8.5-10.1) 8.1 MG/DL (8.5-10.1) Total Bilirubin 3.7 MG/DL (0.2-1.0) 5.7 MG/DL (0.2-1.0) Direct Bilirubin 3.1 MG/DL (0.0-0.3) 4.7 MG/DL (0.0-0.3) Aspartate Amino Transf (AST/SGOT) 119 U/L (15-37) 103 U/L (15-37) Alanine Aminotransferase (ALT/SGPT) 84 U/L (12-78) 61 U/L (12-78) Alkaline Phosphatase 248 U/L (46-116) 250 U/L (46-116) Total Protein 5.6 G/DL (6.4-8.2) 5.5 G/DL (6.4-8.2) Albumin 1.3 G/DL (3.4-5.0) 1.2 G/DL (3.4-5.0) Globulin 4.3 g/dL 4.3 g/dL Albumin/Globulin Ratio 0.3 (1.0-2.7) 0.3 (1.0-2.7) Random Vancomycin Level 20.3 ug/mL Arterial Blood pH 7.390 (7.350-7.450) Arterial Blood Partial Pressure CO2 41.3 mmHg (35.0-45.0) Arterial Blood Partial Pressure O2 47.4 mmHg (75.0-100.0) Arterial Blood HCO3 24.4 mmol/L (22.0-26.0) Arterial Blood Oxygen Saturation 80.9 % (95-100) Arterial Blood Base Excess -0.5 (-2-2) Tee Test Positive Laboratory Tests Test 11/01/18 05:15 Sodium Level 127 MMOL/L (136-145) L Potassium Level 3.5 MMOL/L (3.5-5.1) Chloride Level 92 MMOL/L (98-107) L Carbon Dioxide Level 23 MMOL/L (21-32) Anion Gap 13 mmol/L (5-15) Blood Urea Nitrogen 63 mg/dL (7-18) H Creatinine 3.2 MG/DL (0.55-1.30) H Estimat Glomerular Filtration Rate mL/min (>60) Glucose Level 161 MG/DL (74-106) H Calcium Level 8.1 MG/DL (8.5-10.1) L Total Bilirubin 5.7 MG/DL (0.2-1.0) H Direct Bilirubin 4.7 MG/DL (0.0-0.3) H Aspartate Amino Transf (AST/SGOT) 103 U/L (15-37) H Alanine Aminotransferase (ALT/SGPT) 61 U/L (12-78) Alkaline Phosphatase 250 U/L (46-116) H Total Protein 5.5 G/DL (6.4-8.2) L Albumin 1.2 G/DL (3.4-5.0) L Globulin 4.3 g/dL Albumin/Globulin Ratio 0.3 (1.0-2.7) L Cytomegalovirus DNA Qual (PCR) Pending Luis Felipe-Weaver Virus Capsid Ag IgM Ab Pending Herpes Simplex Virus I IgM Ab (IFA) Pending Herpes Simplex Virus II IgM Ab (IFA Pending Monoscreen Pending Current Medications Medications (Trade) Dose Ordered Sig/Ashely Route PRN Reason Start Time Stop Time Status Last Admin Dose Admin Albumin Human 100 ml @ 200 mls/hr PRN PRN IV sbp<90 during hd 11/01/18 12:00 11/03/18 23:59 Aspirin (Ecotrin) 81 mg DAILY ORAL 10/19/18 09:00 11/09/18 08:59 10/30/18 08:26 Calcium Carbonate (Tums) 500 mg BID GT 10/20/18 18:00 11/09/18 08:59 11/01/18 08:13 Chlorhexidine Gluconate (Anai-Hex 2%) 1 applic DAILY@1999 TOPIC 10/18/18 20:00 11/12/18 19:59 10/31/18 20:01 Dextrose (Dextrose 50%) 25 ml Q30M PRN IV Hypoglycemia 10/23/18 08:15 11/22/18 08:14 Dextrose (Dextrose 50%) 50 ml Q30M PRN IV Hypoglycemia 10/23/18 08:15 11/22/18 08:14 Dobutamine HCl 250 ml @ 20.1 mls/hr Q24H IV 11/02/18 13:04 11/18/18 13:03 11/01/18 13:14 Dopamine HCl/ Dextrose 250 ml @ 0 mls/hr Q24H IV 10/19/18 12:45 11/18/18 12:44 10/20/18 17:43 Fluconazole/ Sodium Chloride 100 ml @ 100 mls/hr Q24H IV 10/28/18 20:00 11/04/18 19:59 10/31/18 20:01 Haloperidol Lactate (Haldol) 5 mg Q6H PRN IM Agitation 10/18/18 17:00 11/17/18 16:59 10/31/18 15:28 Heparin Sodium (Porcine) (Heparin Sod 1000 units/ml 10ml) 500 unit ONCE PRN IV FOR HD USE ONLY 11/01/18 12:00 11/03/18 23:59 Insulin Aspart (NovoLOG) EVERY 6 HOURS SUBQ 10/30/18 12:00 11/22/18 08:59 11/01/18 11:17 Latanoprost (Xalatan) 1 drop BEDTIME BOTH EYES 10/18/18 21:00 11/10/18 20:59 10/31/18 20:42 Loperamide HCl (Imodium) 2 mg Q4H PRN ORAL Diarrhea 10/27/18 09:45 11/26/18 09:44 Meropenem 500 mg/ Sodium Chloride 50 ml @ 100 mls/hr Q24HRS IVPB 10/29/18 00:00 11/03/18 00:00 10/31/18 23:29 Midodrine (Pro-Amatine) 5 mg THREE TIMES A DAY ORAL 10/30/18 13:00 11/29/18 08:59 11/01/18 13:34 Norepinephrine Bitartrate 16 mg/ Dextrose 500 ml @ 0 mls/hr Q24H IV 10/20/18 18:00 11/19/18 17:59 11/01/18 09:35 Ondansetron HCl (Zofran) 4 mg Q8H PRN IVP Nausea & Vomiting 10/18/18 17:00 11/17/18 16:59 Pantoprazole (Protonix) 40 mg DAILY IVP 11/02/18 09:00 12/02/18 08:59 Promethazine HCl (Phenergan Plain) 6.25 mg Q6H PRN ORAL For Cough 10/18/18 16:45 11/10/18 04:32 Vancomycin HCl (Vanco rx to dose) 1 ea DAILY PRN MISC Per rx protocol 10/19/18 23:30 11/18/18 23:29 Vasopressin 100 units/Sodium Chloride 100 ml @ 2.4 mls/hr Q24H IV 10/22/18 15:00 11/21/18 14:59 10/25/18 15:13 Roseline Figueroa MD Nov 01, 2018 15:15
--- NOTE | 2018-11-01 16:00 | NUR ---
NURSE NOTES: PICC line dressing changed. No acute distress. Will continue to monitor.
--- NOTE | 2018-11-01 17:30 | NUR ---
NURSE NOTES: Blood cultures sent per Dr Calvo. Will continue to monitor.
--- NOTE | 2018-11-01 18:55 | NUR ---
CASE MANAGEMENT: REVIEW SI: ACUTE RESP FAILURE . RENAL FAILURE . CHF T 99.0 HR 106 RR 29 BP 77/36 SAT 99% MECH VENT FIO2 30 IS: DOBUTAMINE GTT DOPAMINE GTT LEVOPHED GTT VASOPRESSIN IV Q24HR MEROPENEM IV Q24HR DIFLUCAN IV Q24HR HEMODIALYSIS PRN OROGASTRIC TUBE FEEDING NEPRO @ 40ML/HR ICU STATUS DCP: PATIENT IS FROM HOME
--- NOTE | 2018-11-01 19:19 | General Progress Note ---
Assessment/Plan Assessment/Plan Assessment - Abnormal LFT, gradually improving - Nodular liver, ascites, low albumin - possible cirrhosis - Respiratory failure - Dysphagia - may need GT - Ascites - would need PEG placed surgically - s/p rubén - CAD - Diarrhea Recommendations - f/u additional liver serologies - follow LFT - Vent care - Tube feeds - Rectal tube Subjective Allergies: Coded Allergies: PENICILLINS (Verified Allergy, Unknown, 10/09/18) Subjective Elderly WM intubated tolerating TF BP low today Objective Last 24 Hour Vital Signs Date Time Temp Pulse Resp B/P (MAP) Pulse Ox O2 Delivery O2 Flow Rate FiO2 11/01/18 18:30 106 21 109/44 (65) 100 11/01/18 18:00 105 26 92/38 (56) 11/01/18 17:30 106 29 114/59 (77) 100 11/01/18 17:00 106 29 30 11/01/18 17:00 105 26 90/53 (65) 100 11/01/18 16:30 103 9 89/43 (58) 100 11/01/18 16:00 103 11/01/18 16:00 30 11/01/18 16:00 Mechanical Ventilator 11/01/18 16:00 99.0 102 0 77/36 (50) 99 11/01/18 15:30 103 20 87/20 (42) 100 11/01/18 15:00 108 15 90/52 (65) 100 11/01/18 14:44 110 30 30 11/01/18 14:30 106 19 87/41 (56) 99 11/01/18 14:00 106 10 92/43 (59) 100 11/01/18 13:30 102 0 85/38 (54) 99 11/01/18 13:14 96/51 11/01/18 13:11 114 11/01/18 13:00 99.0 106 18 96/51 (66) 98 11/01/18 13:00 106 25 30 11/01/18 12:45 95/36 11/01/18 12:42 95/36 11/01/18 12:30 104 22 95/36 (55) 99 11/01/18 12:00 30 11/01/18 12:00 101 4 78/34 (49) 100 11/01/18 12:00 Mechanical Ventilator 11/01/18 11:30 100 20 94/61 (72) 99 11/01/18 11:19 90/55 11/01/18 11:00 103 22 99/51 (67) 98 11/01/18 10:30 102 26 30 11/01/18 10:30 106 0 90/55 (67) 97 11/01/18 10:10 110 27 30 11/01/18 10:00 91 6 79/27 (44) 100 11/01/18 09:35 97/56 11/01/18 09:30 109 21 85/16 (39) 100 11/01/18 09:30 93 31 30 11/01/18 09:30 100 11/01/18 09:00 109 31 97/56 (70) 100 11/01/18 08:30 109 32 97/59 (72) 100 11/01/18 08:00 30 11/01/18 08:00 Mechanical Ventilator 11/01/18 08:00 99.2 102 15 79/43 (55) 99 11/01/18 08:00 107 11/01/18 07:30 107 21 103/40 (61) 100 11/01/18 07:00 108 25 97/46 (63) 100 11/01/18 06:50 104 32 30 11/01/18 06:30 107 20 102/59 (73) 100 11/01/18 06:00 104 20 100/67 (78) 100 11/01/18 05:30 104 17 101/56 (71) 100 11/01/18 05:18 4 26 30 11/01/18 05:00 94 20 100/47 (64) 100 11/01/18 04:30 105 20 104/45 (64) 100 11/01/18 04:04 103 11/01/18 04:00 Mechanical Ventilator 11/01/18 04:00 98.9 105 26 97/33 (54) 100 11/01/18 04:00 30 11/01/18 03:30 105 2 102/59 (73) 100 11/01/18 03:00 105 9 94/27 (49) 100 11/01/18 02:56 102 25 30 11/01/18 02:30 102 0 100/46 (64) 100 11/01/18 02:00 105 26 93/39 (57) 100 11/01/18 01:30 105 28 93/47 (62) 100 11/01/18 01:18 102 28 30 11/01/18 01:00 106 28 94/43 (60) 100 11/01/18 00:30 103 27 104/40 (61) 100 11/01/18 00:00 Mechanical Ventilator 11/01/18 00:00 98.1 103 27 100/54 (69) 100 11/01/18 00:00 30 10/31/18 23:51 109 10/31/18 23:30 104 26 89/37 (54) 99 10/31/18 23:28 98/40 10/31/18 23:23 103 26 30 10/31/18 23:00 104 26 93/75 (81) 98 10/31/18 22:30 101 26 95/45 (62) 99 10/31/18 22:20 104 25 30 10/31/18 22:00 102 26 104/44 (64) 98 10/31/18 21:30 106 26 99/45 (63) 99 10/31/18 21:00 106 20 100/41 (60) 99 10/31/18 21:00 100/41 10/31/18 20:30 105 20 103/41 (61) 98 10/31/18 20:10 106 10/31/18 20:00 98.0 102 17 95/44 (61) 96 10/31/18 20:00 Mechanical Ventilator 10/31/18 20:00 95/44 10/31/18 20:00 26 10/31/18 19:30 100 21 84/37 (53) 96 10/31/18 19:29 103 24 30 Intake and Output 10/31/18 11/01/18 18:59 06:59 Intake Total 885.00 ml 1660.00 ml Output Total 2120 ml Balance 885.00 ml -460.00 ml Free Water 50 ml IV Total 525.00 ml 1100.00 ml Tube Feeding 360 ml 510 ml Stool Total 120 ml Hemodialysis UF 2000 ml # Bowel Movements 50 Laboratory Tests 11/01/18 05:15: Sodium Level 127L, Potassium Level 3.5, Chloride Level 92L, Carbon Dioxide Level 23, Anion Gap 13, Blood Urea Nitrogen 63H, Creatinine 3.2H, Estimat Glomerular Filtration Rate , Glucose Level 161H, Calcium Level 8.1L, Total Bilirubin 5.7H, Direct Bilirubin 4.7H, Aspartate Amino Transf (AST/SGOT) 103H, Alanine Aminotransferase (ALT/SGPT) 61, Alkaline Phosphatase 250H, Total Protein 5.5L, Albumin 1.2L, Globulin 4.3, Albumin/Globulin Ratio 0.3L, Cytomegalovirus DNA Qual (PCR) [Pending], Luis Felipe-Weaver Virus Capsid Ag IgM Ab [ Pending], Herpes Simplex Virus I IgM Ab (IFA) [Pending], Herpes Simplex Virus II IgM Ab (IFA [Pending], Monoscreen [Pending] Height (Feet): 5 Height (Inches): 2.00 Weight (Pounds): 203 Objective WDWN NCAT Neck supple Chest CTA RRR Abd Soft ND NT no edema Tracy Lynn MD Nov 01, 2018 19:19
--- NOTE | 2018-11-01 19:30 | NUR ---
NURSE NOTES:Received pt awake with eye contact at times,Orally intubated on ac mode, with 30%fi02, 02 sat 99%,ST low 100s Bp labile. On Levophed drip a 30mcg/min. Dobutamine drip at 5mcgkg/min,all iVF been infusing to KIM PICC line, RT IJ cem cath with drsg dry and intact as well. Pts upper and lower extremities wheeping with fluids, scattered blisters all over were covered with optifom drsg. Pt on p200 matress. Turned q 2hrs prn with good skin care done. Rectal tube to gravity with moderate amt of brownish stools- Dr Key was here and evaluated pt- no other orders were given._ will continue to monitor.
--- NOTE | 2018-11-01 19:34 | NUR ---
HAND-OFF: Report given to Maura OSMAN.
--- NOTE | 2018-11-01 19:55 | Neurology Progress Note ---
Interim History Interim History Interim History Mr. Gann feels better. He is subdued and less responsive. He opens his eyes on vocal stimulation. He is able to give yes/no answers. He follows commands inconsistently He is still moving his left side better than the right. He continues to be on a single pressor. He continues to be intubated and artificially ventilated. He still has significant anasarca. He continues to be ill. Review of Systems Neuro Review of Systems Unable to obtain. Objective Physical Exam Last Vital Signs Date Time Temp Pulse Resp B/P (MAP) Pulse Ox O2 Delivery O2 Flow Rate FiO2 11/01/18 19:30 103 0 79/35 (50) 100 11/01/18 17:00 30 11/01/18 16:00 Mechanical Ventilator 11/01/18 16:00 99.0 Laboratory Tests Test 11/01/18 05:15 Sodium Level 127 MMOL/L (136-145) L Potassium Level 3.5 MMOL/L (3.5-5.1) Chloride Level 92 MMOL/L (98-107) L Carbon Dioxide Level 23 MMOL/L (21-32) Anion Gap 13 mmol/L (5-15) Blood Urea Nitrogen 63 mg/dL (7-18) H Creatinine 3.2 MG/DL (0.55-1.30) H Estimat Glomerular Filtration Rate mL/min (>60) Glucose Level 161 MG/DL (74-106) H Calcium Level 8.1 MG/DL (8.5-10.1) L Total Bilirubin 5.7 MG/DL (0.2-1.0) H Direct Bilirubin 4.7 MG/DL (0.0-0.3) H Aspartate Amino Transf (AST/SGOT) 103 U/L (15-37) H Alanine Aminotransferase (ALT/SGPT) 61 U/L (12-78) Alkaline Phosphatase 250 U/L (46-116) H Total Protein 5.5 G/DL (6.4-8.2) L Albumin 1.2 G/DL (3.4-5.0) L Globulin 4.3 g/dL Albumin/Globulin Ratio 0.3 (1.0-2.7) L Cytomegalovirus DNA Qual (PCR) Pending Luis Feliep-Weaver Virus Capsid Ag IgM Ab Pending Herpes Simplex Virus I IgM Ab (IFA) Pending Herpes Simplex Virus II IgM Ab (IFA Pending Monoscreen Pending Neurologic Exam Objective PHYSICAL EXAMINATION: GENERAL: He is a well-developed, relatively well-nourished, gentleman , lying in an ICU bed, connected to a ventilator through an orotracheal tube. HEAD: Normocephalic and atraumatic. NECK: No neck rigidity was observed. EENT: Benign. NEUROLOGICAL EXAMINATION: MENTAL STATUS EXAMINATION: He opened his eyes on vocal stimuli. He was subdued. He followed simple commands inconsistently. He was able to communicate with yes/no answers. Further mental status testing was impossible. SPEECH: Could not be tested. LANGUAGE: He was able to comprehend fairly well and mouth a few words. CRANIAL NERVE EXAMINATION: II: He did blink to threat. He counted fingers. III, IV & : The external ocular movements were present. The pupils were 3 mm in diameter, equal, round, regular, and did not react to light. V & VII: The corneal reflexes were present bilaterally, but significantly diminished on the right side compared to the left. VIII: He did not respond to sounds and had no nystagmus. IX & X: The gag reflex was absent on manipulating the endotracheal tube. XI: The sternocleidomastoids and trapezii did not function. XII: Could not be tested adequately. MOTOR SYSTEM: The tone was normal in all four extremities. Examination of muscle mass revealed no focal wasting. Examination of power was impossible to perform accurately - he moved his left side better than the right. SENSORY EXAMINATION: He responded appropriately to deep pain. He was unable to cooperate for other sensory modalities. REFLEXES: Trace+ and bilaterally symmetrical at the biceps, triceps, brachioradialis. 0 at both knees and ankles. The plantar response was extensor on the right and mute on the left. COORDINATION, STANCE & GAIT: Could not be tested. ABNORMAL MOVEMENTS: Tremor (7-8 Hz): 0/4 Impression/Recommendations Diagnostic Impression 1. Mr. Marla Gann is an 83-year-old, gentleman, of unknown handedness, with a past history of multiple medical problems including hypertension, diabetes mellitus, dyslipidemia, aortic stenosis, vitamin B12 deficiency, vitamin D deficiency, coronary artery disease, congestive heart failure, and intestinal pathology. He was hospitalized on 10/09/2018 for an altered mental state related to multiple metabolic imbalances. He did improve, but then in the hospital, he has had multiple further episodes of hypoglycemia. On the morning of 10/19/18, his blood sugar dropped to 22. He has also had problems with his respiratory function, progressive renal dysfunction, and on the morning of 10/19/18 was noted to have weakness in his right upper extremity, this problem continues. 2. He feels better. He is subdued and less responsive. He opens his eyes on vocal stimulation. He is able to give yes/no answers. He follows commands inconsistently He is still moving his left side better than the right. He continues to be on a single pressor. He continues to be intubated and artificially ventilated. He still has significant anasarca. He continues to be ill. 3. On neurological examination, at this time, he opens his eyes on vocal stimuli , he is able to follow commands inconsistently. He is able to communicate with yes/no answers, however further mental status testing is impossible. The corneal reflex is definitely diminished on the right side compared to the left. 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 His deep tendon reflexes are globally diminished in the upper extremities and lost in the lower extremities. His plantar response is extensor on the right and mute on the left. He has no tremor. 4. His laboratory data on my initial evaluation revealed that his WBC count was elevated to 16,000. His hemoglobin was low at 7.2 G. His arterial blood gas revealed a pH of 7.18, a pCO2 of 43, and a pO2 of 112. His chemistry panel revealed a sodium of 133, potassium of 5.3, chloride of 91, BUN at 89, creatinine at 5.2, and blood glucose at 22. 5. His EEG done on 10/19/18 revealed a moderately severe encephalopathy with a definite toxic/metabolic component. 6. The Repeat EEG done on 10/23/18 revealed a moderately severe toxic/metabolic encephalopathy. In addition left > right hemispheric dysfunction was seen. The abnormal movements had no EEG correlate. 7. The CT of the brain was benign for acute pathology. 8. His latest laboratory tests reveal that his leukocytosis is worse with a WBC count of 26,300. He is severely hyponatremic with a Na of 121 and chloride of 86. His BUN is elevated at 72 with a creatinine of 4.9. His LFTs are elevated and so is his glucose. 9. The patient's history, neurological examination, and laboratory data are most compatible with a significant toxic metabolic encephalopathy that brought him into the hospital, and now possibly an acute cerebral lesion causing the right hemiparesis. 10. The left UE movement was a tremor. It has now resolved. The EEG while he was having the tremor revealed no EEG correlate. 11. His encephalopathy is minimally worse today. Recommendations 1. Continue present management. 2. Continue to correct toxic metabolic imbalances. 3. Try to keep the blood pressure >110 mmHg systolic. 4. When possible get MRI of brain. 5. Observe closely in ICU setting. Abram Johnson M.D., M.S.P.H. Abram Johnson MD Nov 01, 2018 19:55
--- NOTE | 2018-11-01 19:59 | Cardiology Progress Note ---
Assessment/Plan Assessment/Plan cardiology critical care 1. Hypoglycemia secondary to medication. 2. Diabetes mellitus previously. 3. Acute Respiratory inusf / hemoptysis 4. History of ischemic cardiomyopathy with ejection fraction of 40%. 5. Mitral regurgitation, [id number] degree on recent echocardiogram last week. 6. Moderate tricuspid regurgitation. 7. Mild pulmonary hypertension with 43 through 48. 8. Pleural effusions history. 9. Abnormal gastric endoscopy, suspicious for malignancy with submucosal resection. 10. Aortic stenosis. 11. Hyperlipidemia. 12. Prostate cancer. 13. Abnormal facial asymmetry. 14. CAD 15. AMS 16. NSTEMI demand related vs PE related doubt acs 17. acute on chronic renal failure 18. metabolic acidosis 19. hemiparesis 20. hypotension / septic shock 21. Thrombocytopenia 22. abn lft probable shock liver ? 23. profound hyponatremia 24. hyper bilirubinemia 25. pelvic mass 26. hydronephrosis and hydroureter echo reviewed has infor post swma and mod mr and ef probabley 35-40% , rv is not enlarge ivc ws enlarged at the time was done v/q was ordered but not done plt are still low despite being off heparin is on abx adjusted by id now on 3 pressor dobutamin dopamine and levophed lft down trending bili back up d/w son luis , now dnr but otherwise full care if not able to get off [place] pressor will rediscuss next week needs more dialysis toelrate 2 liter removal venous duplex neg dialysis will repeat echoin lfts in am cxr personally reviewed ekg trop Subjective Subjective intubated follows commnads Objective Last 24 Hour Vital Signs Date Time Temp Pulse Resp B/P (MAP) Pulse Ox O2 Delivery O2 Flow Rate FiO2 11/01/18 19:30 103 0 79/35 (50) 100 11/01/18 19:00 103 0 99/48 (65) 99 11/01/18 18:30 106 21 109/44 (65) 100 11/01/18 18:00 105 26 92/38 (56) 11/01/18 17:30 106 29 114/59 (77) 100 11/01/18 17:00 106 29 30 11/01/18 17:00 105 26 90/53 (65) 100 11/01/18 16:30 103 9 89/43 (58) 100 11/01/18 16:00 103 11/01/18 16:00 30 11/01/18 16:00 Mechanical Ventilator 11/01/18 16:00 99.0 102 0 77/36 (50) 99 11/01/18 15:30 103 20 87/20 (42) 100 11/01/18 15:00 108 15 90/52 (65) 100 11/01/18 14:44 110 30 30 11/01/18 14:30 106 19 87/41 (56) 99 11/01/18 14:00 106 10 92/43 (59) 100 11/01/18 13:30 102 0 85/38 (54) 99 11/01/18 13:14 96/51 11/01/18 13:11 114 11/01/18 13:00 99.0 106 18 96/51 (66) 98 11/01/18 13:00 106 25 30 11/01/18 12:45 95/36 11/01/18 12:42 95/36 11/01/18 12:30 104 22 95/36 (55) 99 11/01/18 12:00 30 11/01/18 12:00 101 4 78/34 (49) 100 11/01/18 12:00 Mechanical Ventilator 11/01/18 11:30 100 20 94/61 (72) 99 11/01/18 11:19 90/55 11/01/18 11:00 103 22 99/51 (67) 98 11/01/18 10:30 102 26 30 11/01/18 10:30 106 0 90/55 (67) 97 11/01/18 10:10 110 27 30 11/01/18 10:00 91 6 79/27 (44) 100 11/01/18 09:35 97/56 11/01/18 09:30 109 21 85/16 (39) 100 11/01/18 09:30 93 31 30 11/01/18 09:30 100 11/01/18 09:00 109 31 97/56 (70) 100 11/01/18 08:30 109 32 97/59 (72) 100 11/01/18 08:00 30 11/01/18 08:00 Mechanical Ventilator 11/01/18 08:00 99.2 102 15 79/43 (55) 99 11/01/18 08:00 107 2/25/19 07:30 107 21 103/40 (61) 100 11/01/18 07:00 108 25 97/46 (63) 100 11/01/18 06:50 104 32 30 11/01/18 06:30 107 20 102/59 (73) 100 11/01/18 06:00 104 20 100/67 (78) 100 11/01/18 05:30 104 17 101/56 (71) 100 11/01/18 05:18 4 26 30 11/01/18 05:00 94 20 100/47 (64) 100 11/01/18 04:30 105 20 104/45 (64) 100 11/01/18 04:04 103 11/01/18 04:00 Mechanical Ventilator 11/01/18 04:00 98.9 105 26 97/33 (54) 100 11/01/18 04:00 30 11/01/18 03:30 105 2 102/59 (73) 100 11/01/18 03:00 105 9 94/27 (49) 100 11/01/18 02:56 102 25 30 11/01/18 02:30 102 0 100/46 (64) 100 11/01/18 02:00 105 26 93/39 (57) 100 11/01/18 01:30 105 28 93/47 (62) 100 11/01/18 01:18 102 28 30 11/01/18 01:00 106 28 94/43 (60) 100 11/01/18 00:30 103 27 104/40 (61) 100 11/01/18 00:00 Mechanical Ventilator 11/01/18 00:00 98.1 103 27 100/54 (69) 100 11/01/18 00:00 30 10/31/18 23:51 109 10/31/18 23:30 104 26 89/37 (54) 99 10/31/18 23:28 98/40 10/31/18 23:23 103 26 30 10/31/18 23:00 104 26 93/75 (81) 98 10/31/18 22:30 101 26 95/45 (62) 99 10/31/18 22:20 104 25 30 10/31/18 22:00 102 26 104/44 (64) 98 10/31/18 21:30 106 26 99/45 (63) 99 10/31/18 21:00 106 20 100/41 (60) 99 2/24/19 21:00 100/41 10/31/18 20:30 105 20 103/41 (61) 98 10/31/18 20:10 106 10/31/18 20:00 98.0 102 17 95/44 (61) 96 10/31/18 20:00 Mechanical Ventilator 10/31/18 20:00 95/44 10/31/18 20:00 26 General Appearance: no apparent distress, alert, on vent Neck: supple Cardiovascular: regular rhythm Respiratory/Chest: lungs clear - ant Abdomen: normal bowel sounds, non tender, soft Extremities: severe edema Intake and Output 10/31/18 11/01/18 19:00 07:00 Intake Total 907.50 ml 1614.00 ml Output Total 2120 ml Balance 907.50 ml -506.00 ml Free Water 50 ml IV Total 547.50 ml 1044.00 ml Tube Feeding 360 ml 520 ml Stool Total 120 ml Hemodialysis UF 2000 ml Laboratory Tests Test 11/01/18 05:15 Sodium Level 127 MMOL/L (136-145) L Potassium Level 3.5 MMOL/L (3.5-5.1) Chloride Level 92 MMOL/L (98-107) L Carbon Dioxide Level 23 MMOL/L (21-32) Anion Gap 13 mmol/L (5-15) Blood Urea Nitrogen 63 mg/dL (7-18) H Creatinine 3.2 MG/DL (0.55-1.30) H Estimat Glomerular Filtration Rate mL/min (>60) Glucose Level 161 MG/DL (74-106) H Calcium Level 8.1 MG/DL (8.5-10.1) L Total Bilirubin 5.7 MG/DL (0.2-1.0) H Direct Bilirubin 4.7 MG/DL (0.0-0.3) H Aspartate Amino Transf (AST/SGOT) 103 U/L (15-37) H Alanine Aminotransferase (ALT/SGPT) 61 U/L (12-78) Alkaline Phosphatase 250 U/L (46-116) H Total Protein 5.5 G/DL (6.4-8.2) L Albumin 1.2 G/DL (3.4-5.0) L Globulin 4.3 g/dL Albumin/Globulin Ratio 0.3 (1.0-2.7) L Cytomegalovirus DNA Qual (PCR) Pending Luis Felipe-Weaver Virus Capsid Ag IgM Ab Pending Herpes Simplex Virus I IgM Ab (IFA) Pending Herpes Simplex Virus II IgM Ab (IFA Pending Monoscreen Pending Microbiology Date/Time Source Procedure Growth Status 10/30/18 03:30 Sputum Induced Gram Stain - Final Complete 10/30/18 03:30 Sputum Induced Sputum Culture - Final NORMAL UPPER RESPIRATORY ADDI PRESENT Complete Dg Key MD Nov 01, 2018 19:59
[2018-11-01] MEDS: Dyna-Hex 2% Top Sol 2oz TOPIC SCH (20:13)
--- NOTE | 2018-11-01 20:30 | General Progress Note ---
Assessment/Plan Assessment/Plan ASSESSMENT/RECS: # Thrombocytopenia -- multiple etiologies possible, has been on heparin gtt which was discontinued on 10/24 --> HIT antibody is final and negative --> smear has been reviewed, no e/o schistocytes is noted --> duplex lower extremities ordered and is negative for dvt --> anemia panel has been reviewed and is negative for hemolysis --> flow cytometry reviewed and is negative for leukemia/mds --> trend platelet count as needed # Leukocytosis likely related to underlying sepsis, flow cytometry is negative for underlying malignancy/no leukemia noted, no distinct immunophentype is noted --> r/o other underlying causes such as infection --> on abx as per id, antifungals --> if stable, can consider a bone marrow biopsy given nucleated cells on the peripheral smear that are persistent in future # Pelvic mass with hydrureter, questionable --> CA19.9 ad ca125 pending # Respiratory failure on a vent --> as per pulm management # Hyponatremia on ivf as per nephro # Colonic distention, abnormal liver function tests. --> as per gi # ESRD on hd as per vip --> on hd The timing of this note does not necessarily reflect the time of the patient was seen. Greatly appreciate consultation! Subjective Allergies: Coded Allergies: PENICILLINS (Verified Allergy, Unknown, 10/09/18) Subjective 10/25: pt was seen in ICU , more alert today, no acute events reported. plt 64, wbc 19, flow cytometry ordered, off heparin gtt 10/26: in icu still, per rn is off heparin gtt, currently symptoms are better, no fevers or chills noted, on pressor but less 10/27:plt 67, intubated on 1 pressor , but now follows commands, no events 10/28: Pt is intubated, non verbal, no events 10/29: seen by bedside,on vent, HD today, on pressors, abxs per ID, wbc 16, plt 94 10/31: patient is intubated, hgb 8.4, plt 64, no events 11/01: Seen by bedside, HD tomorrow, on abxs per ID, Objective Last 24 Hour Vital Signs Date Time Temp Pulse Resp B/P (MAP) Pulse Ox O2 Delivery O2 Flow Rate FiO2 11/01/18 20:21 104 28 Mechanical Ventilator 30 11/01/18 20:13 101/51 11/01/18 19:30 103 0 79/35 (50) 100 11/01/18 19:20 104 28 30 11/01/18 19:00 103 0 99/48 (65) 99 11/01/18 18:30 106 21 109/44 (65) 100 11/01/18 18:00 105 26 92/38 (56) 11/01/18 17:30 106 29 114/59 (77) 100 11/01/18 17:00 106 29 30 11/01/18 17:00 105 26 90/53 (65) 100 11/01/18 16:30 103 9 89/43 (58) 100 11/01/18 16:00 103 11/01/18 16:00 30 11/01/18 16:00 Mechanical Ventilator 11/01/18 16:00 99.0 102 0 77/36 (50) 99 11/01/18 15:30 103 20 87/20 (42) 100 11/01/18 15:00 108 15 90/52 (65) 100 11/01/18 14:44 110 30 30 11/01/18 14:30 106 19 87/41 (56) 99 11/01/18 14:00 106 10 92/43 (59) 100 11/01/18 13:30 102 0 85/38 (54) 99 11/01/18 13:14 96/51 11/01/18 13:11 114 11/01/18 13:00 99.0 106 18 96/51 (66) 98 11/01/18 13:00 106 25 30 11/01/18 12:45 95/36 11/01/18 12:42 95/36 11/01/18 12:30 104 22 95/36 (55) 99 11/01/18 12:00 30 11/01/18 12:00 101 4 78/34 (49) 100 11/01/18 12:00 Mechanical Ventilator 11/01/18 11:30 100 20 94/61 (72) 99 11/01/18 11:19 90/55 11/01/18 11:00 103 22 99/51 (67) 98 11/01/18 10:30 102 26 30 11/01/18 10:30 106 0 90/55 (67) 97 11/01/18 10:10 110 27 30 11/01/18 10:00 91 6 79/27 (44) 100 11/01/18 09:35 97/56 11/01/18 09:30 109 21 85/16 (39) 100 11/01/18 09:30 93 31 30 11/01/18 09:30 100 11/01/18 09:00 109 31 97/56 (70) 100 11/01/18 08:30 109 32 97/59 (72) 100 11/01/18 08:00 30 11/01/18 08:00 Mechanical Ventilator 11/01/18 08:00 99.2 102 15 79/43 (55) 99 11/01/18 08:00 107 11/01/18 07:30 107 21 103/40 (61) 100 11/01/18 07:00 108 25 97/46 (63) 100 11/01/18 06:50 104 32 30 11/01/18 06:30 107 20 102/59 (73) 100 11/01/18 06:00 104 20 100/67 (78) 100 11/01/18 05:30 104 17 101/56 (71) 100 11/01/18 05:18 4 26 30 11/01/18 05:00 94 20 100/47 (64) 100 11/01/18 04:30 105 20 104/45 (64) 100 11/01/18 04:04 103 11/01/18 04:00 Mechanical Ventilator 11/01/18 04:00 98.9 105 26 97/33 (54) 100 11/01/18 04:00 30 11/01/18 03:30 105 2 102/59 (73) 100 11/01/18 03:00 105 9 94/27 (49) 100 11/01/18 02:56 102 25 30 11/01/18 02:30 102 0 100/46 (64) 100 11/01/18 02:00 105 26 93/39 (57) 100 11/01/18 01:30 105 28 93/47 (62) 100 11/01/18 01:18 102 28 30 11/01/18 01:00 106 28 94/43 (60) 100 11/01/18 00:30 103 27 104/40 (61) 100 11/01/18 00:00 Mechanical Ventilator 11/01/18 00:00 98.1 103 27 100/54 (69) 100 11/01/18 00:00 30 10/31/18 23:51 109 10/31/18 23:30 104 26 89/37 (54) 99 10/31/18 23:28 98/40 10/31/18 23:23 103 26 30 10/31/18 23:00 104 26 93/75 (81) 98 10/31/18 22:30 101 26 95/45 (62) 99 10/31/18 22:20 104 25 30 10/31/18 22:00 102 26 104/44 (64) 98 10/31/18 21:30 106 26 99/45 (63) 99 10/31/18 21:00 106 20 100/41 (60) 99 10/31/18 21:00 100/41 10/31/18 20:30 105 20 103/41 (61) 98 Intake and Output 10/31/18 11/01/18 19:00 07:00 Intake Total 907.50 ml 1614.00 ml Output Total 2120 ml Balance 907.50 ml -506.00 ml Free Water 50 ml IV Total 547.50 ml 1044.00 ml Tube Feeding 360 ml 520 ml Stool Total 120 ml Hemodialysis UF 2000 ml Laboratory Tests 11/01/18 05:15: Sodium Level 127L, Potassium Level 3.5, Chloride Level 92L, Carbon Dioxide Level 23, Anion Gap 13, Blood Urea Nitrogen 63H, Creatinine 3.2H, Estimat Glomerular Filtration Rate , Glucose Level 161H, Calcium Level 8.1L, Total Bilirubin 5.7H, Direct Bilirubin 4.7H, Aspartate Amino Transf (AST/SGOT) 103H, Alanine Aminotransferase (ALT/SGPT) 61, Alkaline Phosphatase 250H, Total Protein 5.5L, Albumin 1.2L, Globulin 4.3, Albumin/Globulin Ratio 0.3L, Cytomegalovirus DNA Qual (PCR) [Pending], Luis Felipe-Weaver Virus Capsid Ag IgM Ab [ Pending], Herpes Simplex Virus I IgM Ab (IFA) [Pending], Herpes Simplex Virus II IgM Ab (IFA [Pending], Monoscreen [Pending] Height (Feet): 5 Height (Inches): 2.00 Weight (Pounds): 203 Objective PHYSICAL EXAMINATION: VITAL SIGNS: reviewed HEENT: Normocephalic and atraumatic. Mild scleral icterus. NECK: Supple. On vent CARDIOVASCULAR: Tachycardic. Regular rr, Plus S1, S2. There is a soft murmur at the left sternal border. LUNGS: ++ vent ABDOMEN: Distended, tympanic to percussion. Hypoactive bowel sounds. EXTREMITIES: No cyanosis, no clubbing, no edema. NEUROLOGIC: More alert Rah Ferreira MD Nov 01, 2018 20:30
[2018-11-01] MEDS: Latanoprost 0.005% Opth 2.5ml Soln BOTH EYES SCH (21:01)
--- NOTE | 2018-11-01 21:30 | NUR ---
NURSE NOTES:SBP >100, Levophed drip at 28mcg/min at this time. Turned to sides for comfort.
--- NOTE | 2018-11-01 23:00 | NUR ---
NURSE NOTES:Suctioned tk beige secretions moderate in amt.02 sat 100% HOB kept elevated. watch for any resp. distress.
[2018-11-01] MEDS ORDERED: DOBUTamine 250mg/250ml Premix 250 ML IV ONE (23:07)
[2018-11-02] VITALS (40 sets, daily range): BP systolic 0–111; BP diastolic 0–63
[2018-11-02] MEDS: NovoLOG Insulin Flexpen SUBQ SCH ×4 (00:26→18:29)
--- NOTE | 2018-11-02 01:00 | NUR ---
NURSE NOTES:Tolerating well OGT fdg. no residuals. HOB kept elevated. On aspiration precaution.
--- NOTE | 2018-11-02 03:00 | NUR ---
NURSE NOTES:Complete bath with bed changed done. SR-ST on the monitor. bp still labile- On Levophed drip at 28mcg/min.
[2018-11-02 04:50] LABS: HEMATOCRIT 27.5 % (42.0-52.0); HEMOGLOBIN 8.5 G/DL (14.2-18.0); MEAN CORPUSCULAR VOLUME 91 FL (80-99); PLATELET COUNT 60 K/UL (150-450); RED BLOOD COUNT 3.03 M/UL (4.70-6.10); RED CELL DISTRIBUTION WIDTH 24.9 % (11.6-14.8); WHITE BLOOD COUNT 12.5 K/UL (4.8-10.8)
--- NOTE | 2018-11-02 05:00 | NUR ---
NURSE NOTES:Suctioned and turned for for comfort. SBp>100. Kept at 28mcg/min of Levophed. Pts still edematous and wheeping with fluid.
--- NOTE | 2018-11-02 05:22 | NUR ---
RESPIRATORY NOTE: PT REMAIN STABLE ON CMV WITH CURRENT SETTINGS. VENT CIRCUIT SECURE AND OUT OF THE WAY. NO SOB AT THIS TIME.
[2018-11-02 05:24] LABS: ALANINE AMINOTRANSFERASE 48 U/L (12-78); ALBUMIN/GLOBULIN RATIO 0.2 (1.0-2.7); ALKALINE PHOSPHATASE 237 U/L (46-116); ANION GAP 13 mmol/L (5-15); ASPARTATE AMINO TRANSFERASE 100 U/L (15-37); BILIRUBIN,TOTAL 5.7 MG/DL (0.2-1.0); BLOOD UREA NITROGEN 79 mg/dL (7-18); CALCIUM 8.2 MG/DL (8.5-10.1); CARBON DIOXIDE 21 MMOL/L (21-32); CHLORIDE 91 MMOL/L (98-107); CREATININE 3.5 MG/DL (0.55-1.30); POTASSIUM 4.3 MMOL/L (3.5-5.1); SODIUM 125 MMOL/L (136-145)
[2018-11-02 05:33] LABS: BILIRUBIN,DIRECT 4.1 MG/DL (0.0-0.3)
--- NOTE | 2018-11-02 06:39 | General Progress Note ---
Assessment/Plan Problem List: (1) CKD (chronic kidney disease) ICD Codes: N18.9 - Chronic kidney disease, unspecified SNOMED: 738361429 (2) Hypoglycemia ICD Codes: E16.2 - Hypoglycemia, unspecified SNOMED: 437578096 (3) Altered mental status ICD Codes: R41.82 - Altered mental status, unspecified SNOMED: 341543851 (4) Ventilator dependence ICD Codes: Z99.11 - Dependence on respirator [ventilator] status SNOMED: 177184466 (5) Hyponatremia ICD Codes: E87.1 - Hypo-osmolality and hyponatremia SNOMED: 39853650 (6) Respiratory failure, acute ICD Codes: J96.00 - Acute respiratory failure, unspecified whether with hypoxia or hypercapnia SNOMED: 30721731 (7) CHF (congestive heart failure) ICD Codes: I50.9 - Heart failure, unspecified SNOMED: 87026051 Assessment/Plan glucose values are elevated add Levemir 6 units daily continue glucose monitoring every 6 hours - low dose Novolog coverage hypoglycemia protocol in order Subjective ROS Limited/Unobtainable: Yes Allergies: Coded Allergies: PENICILLINS (Verified Allergy, Unknown, 10/09/18) Subjective events noted Item Value Date Time Bedside Blood Glucose 232 mg/dl H 11/02/18 0605 Bedside Blood Glucose 226 mg/dl H 11/02/18 0026 Bedside Blood Glucose 201 mg/dl H 11/01/18 1821 Bedside Blood Glucose 170 mg/dl H 11/01/18 1200 Bedside Blood Glucose 164 mg/dl H 11/01/18 0539 Bedside Blood Glucose 190 mg/dl H 10/31/18 2332 Objective Last 24 Hour Vital Signs Date Time Temp Pulse Resp B/P (MAP) Pulse Ox O2 Delivery O2 Flow Rate FiO2 11/02/18 05:22 108 25 30 11/02/18 02:47 106 25 30 11/02/18 01:37 99 24 30 11/02/18 00:00 102 11/02/18 00:00 Mechanical Ventilator 11/02/18 00:00 30 11/01/18 23:19 104 24 30 11/01/18 23:08 93/45 11/01/18 23:00 104 20 88/40 (56) 99 11/01/18 22:30 104 20 110/61 (77) 99 11/01/18 22:00 105 18 103/61 (75) 99 11/01/18 21:30 104 18 103/40 (61) 99 11/01/18 21:00 105 18 122/42 (68) 99 11/01/18 20:36 104 26 30 11/01/18 20:30 104 18 94/44 (61) 100 11/01/18 20:21 104 28 Mechanical Ventilator 30 11/01/18 20:13 101/51 11/01/18 20:00 30 11/01/18 20:00 Mechanical Ventilator 11/01/18 20:00 105 11/01/18 20:00 98.0 103 18 97/36 (56) 100 11/01/18 19:30 103 0 79/35 (50) 100 11/01/18 19:20 104 28 30 11/01/18 19:00 103 0 99/48 (65) 99 11/01/18 18:30 106 21 109/44 (65) 100 11/01/18 18:00 105 26 92/38 (56) 11/01/18 17:30 106 29 114/59 (77) 100 11/01/18 17:00 106 29 30 11/01/18 17:00 105 26 90/53 (65) 100 11/01/18 16:30 103 9 89/43 (58) 100 11/01/18 16:00 103 11/01/18 16:00 30 11/01/18 16:00 Mechanical Ventilator 11/01/18 16:00 99.0 102 0 77/36 (50) 99 11/01/18 15:30 103 20 87/20 (42) 100 11/01/18 15:00 108 15 90/52 (65) 100 11/01/18 14:44 110 30 30 11/01/18 14:30 106 19 87/41 (56) 99 11/01/18 14:00 106 10 92/43 (59) 100 11/01/18 13:30 102 0 85/38 (54) 99 11/01/18 13:14 96/51 11/01/18 13:11 114 11/01/18 13:00 99.0 106 18 96/51 (66) 98 11/01/18 13:00 106 25 30 11/01/18 12:45 95/36 2/25/19 12:42 95/36 11/01/18 12:30 104 22 95/36 (55) 99 11/01/18 12:00 30 11/01/18 12:00 101 4 78/34 (49) 100 11/01/18 12:00 Mechanical Ventilator 11/01/18 11:30 100 20 94/61 (72) 99 11/01/18 11:19 90/55 11/01/18 11:00 103 22 99/51 (67) 98 11/01/18 10:30 102 26 30 11/01/18 10:30 106 0 90/55 (67) 97 11/01/18 10:10 110 27 30 11/01/18 10:00 91 6 79/27 (44) 100 11/01/18 09:35 97/56 11/01/18 09:30 109 21 85/16 (39) 100 11/01/18 09:30 93 31 30 11/01/18 09:30 100 11/01/18 09:00 109 31 97/56 (70) 100 11/01/18 08:30 109 32 97/59 (72) 100 11/01/18 08:00 30 11/01/18 08:00 Mechanical Ventilator 11/01/18 08:00 99.2 102 15 79/43 (55) 99 11/01/18 08:00 107 11/01/18 07:30 107 21 103/40 (61) 100 11/01/18 07:00 108 25 97/46 (63) 100 11/01/18 06:50 104 32 30 Intake and Output 11/01/18 11/02/18 19:00 07:00 Intake Total 1030.50 ml 270 ml Output Total 500 ml Balance 530.50 ml 270 ml Free Water 30 ml IV Total 550.50 ml Tube Feeding 480 ml 240 ml Stool Total 500 ml Laboratory Tests 11/02/18 03:25: White Blood Count 12.5H, Red Blood Count 3.03L, Hemoglobin 8.5L, Hematocrit 27.5L, Mean Corpuscular Volume 91, Mean Corpuscular Hemoglobin 28.2, Mean Corpuscular Hemoglobin Concent 31.0L, Red Cell Distribution Width 24.9H, Platelet Count 60L, Mean Platelet Volume 6.7, Neutrophils (%) (Auto) , Lymphocytes (%) (Auto) , Monocytes (%) (Auto) , Eosinophils (%) (Auto) , Basophils (%) (Auto) , Neutrophils % (Manual) [Pending], Lymphocytes % (Manual) [Pending], Platelet Estimate [Pending], Platelet Morphology [Pending], Sodium Level 125L, Potassium Level 4.3, Chloride Level 91L, Carbon Dioxide Level 21, Anion Gap 13, Blood Urea Nitrogen 79H, Creatinine 3.5H, Estimat Glomerular Filtration Rate , Glucose Level 212H, Calcium Level 8.2L, Total Bilirubin 5.7H, Direct Bilirubin 4.1H, Aspartate Amino Transf (AST/SGOT) 100H, Alanine Aminotransferase (ALT/SGPT) 48, Alkaline Phosphatase 237H, Troponin I 1.174H, Total Protein 5.1L, Albumin 1.0L, Globulin 4.1, Albumin/Globulin Ratio 0.2L Height (Feet): 5 Height (Inches): 2.00 Weight (Pounds): 203 General Appearance: moderate distress Neck: normal alignment Cardiovascular: tachycardia Respiratory/Chest: decreased breath sounds Abdomen: normal bowel sounds Pelvis: normal external exam Objective Current Medications Medications (Trade) Dose Ordered Sig/Ashely Route PRN Reason Start Time Stop Time Status Last Admin Dose Admin Albumin Human 100 ml @ 200 mls/hr PRN PRN IV sbp<90 during hd 11/01/18 12:00 11/03/18 23:59 Aspirin (Ecotrin) 81 mg DAILY ORAL 10/19/18 09:00 11/09/18 08:59 10/30/18 08:26 Calcium Carbonate (Tums) 500 mg BID GT 10/20/18 18:00 11/09/18 08:59 11/01/18 18:00 Chlorhexidine Gluconate (Anai-Hex 2%) 1 applic DAILY@2000 TOPIC 10/18/18 20:00 11/12/18 19:59 11/01/18 20:13 Dextrose (Dextrose 50%) 25 ml Q30M PRN IV Hypoglycemia 10/23/18 08:15 11/22/18 08:14 Dextrose (Dextrose 50%) 50 ml Q30M PRN IV Hypoglycemia 10/23/18 08:15 11/22/18 08:14 Dobutamine HCl 250 ml @ 20.1 mls/hr Q24H IV 11/02/18 13:04 11/18/18 13:03 11/01/18 23:08 Dopamine HCl/ Dextrose 250 ml @ 0 mls/hr Q24H IV 10/19/18 12:45 11/18/18 12:44 10/20/18 17:43 Haloperidol Lactate (Haldol) 5 mg Q6H PRN IM Agitation 10/18/18 17:00 11/17/18 16:59 10/31/18 15:28 Heparin Sodium (Porcine) (Heparin Sod 1000 units/ml 10ml) 500 unit ONCE PRN IV FOR HD USE ONLY 11/01/18 12:00 11/03/18 23:59 Insulin Aspart (NovoLOG) EVERY 6 HOURS SUBQ 10/30/18 12:00 11/22/18 08:59 11/02/18 06:05 Latanoprost (Xalatan) 1 drop BEDTIME BOTH EYES 10/18/18 21:00 11/10/18 20:59 11/01/18 21:01 Loperamide HCl (Imodium) 2 mg Q4H PRN ORAL Diarrhea 10/27/18 09:45 11/26/18 09:44 Meropenem 500 mg/ Sodium Chloride 50 ml @ 100 mls/hr Q24HRS IVPB 11/02/18 00:00 11/07/18 00:00 11/02/18 00:25 Micafungin Sodium 100 mg/Sodium Chloride 100 ml @ 100 mls/hr Q24H IVPB 11/01/18 17:00 11/08/18 16:59 11/01/18 17:24 Midodrine (Pro-Amatine) 5 mg THREE TIMES A DAY ORAL 10/30/18 13:00 11/29/18 08:59 11/01/18 18:00 Norepinephrine Bitartrate 16 mg/ Dextrose 500 ml @ 0 mls/hr Q24H IV 10/20/18 18:00 11/19/18 17:59 11/01/18 20:13 Ondansetron HCl (Zofran) 4 mg Q8H PRN IVP Nausea & Vomiting 10/18/18 17:00 11/17/18 16:59 Pantoprazole (Protonix) 40 mg DAILY IVP 11/02/18 09:00 12/02/18 08:59 Promethazine HCl (Phenergan Plain) 6.25 mg Q6H PRN ORAL For Cough 10/18/18 16:45 11/10/18 04:32 Vancomycin HCl (Vanco rx to dose) 1 ea DAILY PRN MISC Per rx protocol 10/19/18 23:30 11/18/18 23:29 Vasopressin 100 units/Sodium Chloride 100 ml @ 2.4 mls/hr Q24H IV 10/22/18 15:00 11/21/18 14:59 10/25/18 15:13 Barry Schmitt MD Nov 02, 2018 06:39
--- NOTE | 2018-11-02 07:00 | NUR ---
Received Patient on Vent settings of ACVC RR 20, VT 500, Fio2 30%, PEEP +5. Patient intubated with a 7.5 ETT at 23 cm at the lip, secured with anchorfast. Bilateral rhonchi heard upon auscultation. Suction thin white/ clear secretions as needed. Alarms on and audible. Vent plugged into red outlet. Ambu Bag at beside. Will continue to monitor throughout the day.
[2018-11-02] MEDS: Norepinephrine Bitartrate 16 MG in D5W 500ml 484 ML IV SCH (07:18)
--- NOTE | 2018-11-02 07:20 | NUR ---
NURSE NOTES:Endorsed to Brenda OSMAN pts high troponin level 1.174, she verbalized that she will be the one to call Dr Key.
--- NOTE | 2018-11-02 07:30 | NUR ---
HAND-OFF: Report given to Brenda OSMAN.
--- NOTE | 2018-11-02 08:00 | NUR ---
AWAKE/ABLE TO COMMUNICATE BY VERBAL
[2018-11-02] MEDS ORDERED: Pantoprazole Inj IVP SCH (09:00)
[2018-11-02] MEDS: Tums 500mg GT SCH ×2 (09:00→18:27)
[2018-11-02] MEDS ORDERED: Levemir Flexpen SUBQ SCH (09:00)
[2018-11-02] MEDS: Aspirin EC 81mg tab ORAL SCH (09:00)
--- NOTE | 2018-11-02 09:00 | NUR ---
WEANING STARTED. Patient placed on SPONT PS +8, PEEP +5, FIO2 30%. Patient currently FLY well. Will continue to monitor.
[2018-11-02] MEDS ORDERED: DOBUTamine 250mg/250ml Premix 250 ML IV ONE (09:24)
--- NOTE | 2018-11-02 10:48 | NUR ---
WEANING FAILED. Patients Respiratory Rate increased to >45BPM. Placed on pervious settings.
[2018-11-02] MEDS: DOBUTamine 250mg/250ml Premix 250 ML IV SCH (11:00)
--- NOTE | 2018-11-02 11:24 | Urology Progress Note ---
Assessment/Plan Assessment/Plan 1. Renal failure, which is acute on chronic. 2. Right-sided hydronephrosis. 3. Renal cyst. 4. Scrotal edema. 5. History of prostate cancer, status post radical prostatectomy. monitor renal fxn consider right ureteral stent or nephrostomy scrotal elevation consider cooper cath abx as ordered Subjective Allergies: Coded Allergies: PENICILLINS (Verified Allergy, Unknown, 10/09/18) Subjective vent, non-verbal Objective Last 24 Hour Vital Signs Date Time Temp Pulse Resp B/P (MAP) Pulse Ox O2 Delivery O2 Flow Rate FiO2 11/02/18 11:01 101 22 88/40 (56) 93 11/02/18 11:00 84/43 11/02/18 11:00 30 11/02/18 10:48 103 33 30 11/02/18 10:30 100 22 84/38 (53) 93 11/02/18 10:00 101 22 84/40 (55) 93 11/02/18 09:30 103 27 79/39 (52) 96 11/02/18 09:00 103 29 85/45 (58) 100 11/02/18 09:00 100 11/02/18 08:57 100 37 30 11/02/18 08:30 103 26 90/44 (59) 100 11/02/18 08:30 30 11/02/18 08:00 30 11/02/18 08:00 Mechanical Ventilator 11/02/18 08:00 102 11/02/18 08:00 97.3 102 26 85/42 (56) 100 11/02/18 07:18 98/50 11/02/18 07:00 105 25 98/50 (66) 100 11/02/18 06:55 106 25 30 11/02/18 06:30 105 26 11/02/18 06:30 100 25 104/45 (64) 100 11/02/18 06:00 106 24 110/45 (66) 100 11/02/18 05:30 105 25 96/45 (62) 100 11/02/18 05:22 108 25 30 11/02/18 05:00 104 25 105/51 (69) 99 11/02/18 04:30 102 24 111/63 (79) 99 11/02/18 04:00 98.6 105 24 101/40 (60) 99 11/02/18 04:00 30 11/02/18 04:00 105 11/02/18 04:00 Mechanical Ventilator 11/02/18 03:30 106 24 100/43 (62) 99 11/02/18 03:00 104 24 107/46 (66) 99 11/02/18 02:47 106 25 30 11/02/18 02:30 104 24 105/47 (66) 99 11/02/18 02:00 102 26 107/45 (65) 99 11/02/18 01:37 99 24 30 11/02/18 01:30 104 20 102/47 (65) 99 11/02/18 01:00 103 20 97/53 (68) 99 11/02/18 00:30 104 20 103/51 (68) 99 11/02/18 00:00 102 11/02/18 00:00 98.2 105 20 108/41 (63) 99 11/02/18 00:00 Mechanical Ventilator 11/02/18 00:00 30 11/01/18 23:30 104 20 99/42 (61) 99 11/01/18 23:19 104 24 30 11/01/18 23:08 93/45 11/01/18 23:00 104 20 88/40 (56) 99 11/01/18 22:30 104 20 110/61 (77) 99 11/01/18 22:00 105 18 103/61 (75) 99 11/01/18 21:30 104 18 103/40 (61) 99 11/01/18 21:00 105 18 122/42 (68) 99 11/01/18 20:36 104 26 30 11/01/18 20:30 104 18 94/44 (61) 100 11/01/18 20:21 104 28 Mechanical Ventilator 30 11/01/18 20:13 101/51 11/01/18 20:00 30 11/01/18 20:00 Mechanical Ventilator 11/01/18 20:00 105 11/01/18 20:00 98.0 103 18 97/36 (56) 100 11/01/18 19:30 103 0 79/35 (50) 100 11/01/18 19:20 104 28 30 11/01/18 19:00 103 0 99/48 (65) 99 11/01/18 18:30 106 21 109/44 (65) 100 11/01/18 18:00 105 26 92/38 (56) 11/01/18 17:30 106 29 114/59 (77) 100 11/01/18 17:00 106 29 30 11/01/18 17:00 105 26 90/53 (65) 100 11/01/18 16:30 103 9 89/43 (58) 100 11/01/18 16:00 103 11/01/18 16:00 30 11/01/18 16:00 Mechanical Ventilator 11/01/18 16:00 99.0 102 0 77/36 (50) 99 11/01/18 15:30 103 20 87/20 (42) 100 11/01/18 15:00 108 15 90/52 (65) 100 11/01/18 14:44 110 30 30 11/01/18 14:30 106 19 87/41 (56) 99 11/01/18 14:00 106 10 92/43 (59) 100 11/01/18 13:30 102 0 85/38 (54) 99 11/01/18 13:14 96/51 11/01/18 13:11 114 11/01/18 13:00 99.0 106 18 96/51 (66) 98 11/01/18 13:00 106 25 30 11/01/18 12:45 95/36 11/01/18 12:42 95/36 11/01/18 12:30 104 22 95/36 (55) 99 11/01/18 12:00 30 11/01/18 12:00 101 4 78/34 (49) 100 11/01/18 12:00 Mechanical Ventilator 11/01/18 11:30 100 20 94/61 (72) 99 Intake and Output 11/01/18 11/02/18 19:00 07:00 Intake Total 1030.50 ml 1562.55 ml Output Total 500 ml 250 ml Balance 530.50 ml 1312.55 ml Free Water 90 ml IV Total 550.50 ml 992.55 ml Tube Feeding 480 ml 480 ml Stool Total 500 ml 250 ml Microbiology Date/Time Source Procedure Growth Status 10/20/18 06:10 Blood Blood Culture - Final NO GROWTH AFTER 5 DAYS Complete 10/30/18 03:30 Sputum Induced Gram Stain - Final Complete 10/30/18 03:30 Sputum Induced Sputum Culture - Final NORMAL UPPER RESPIRATORY ADDI PRESENT Complete 10/24/18 01:35 Stool Clostridium difficile Toxin Assay - Final Complete Current Medications Medications (Trade) Dose Ordered Sig/Ashely Route PRN Reason Start Time Stop Time Status Last Admin Dose Admin Albumin Human 100 ml @ 200 mls/hr PRN PRN IV sbp<90 during hd 11/01/18 12:00 11/03/18 23:59 Aspirin (Ecotrin) 81 mg DAILY ORAL 10/19/18 09:00 11/09/18 08:59 11/02/18 09:00 Calcium Carbonate (Tums) 500 mg BID GT 10/20/18 18:00 11/09/18 08:59 11/02/18 09:00 Chlorhexidine Gluconate (Anai-Hex 2%) 1 applic DAILY@2000 TOPIC 10/18/18 20:00 11/12/18 19:59 11/01/18 20:13 Dextrose (Dextrose 50%) 25 ml Q30M PRN IV Hypoglycemia 11/02/18 06:45 12/02/18 06:44 Dextrose (Dextrose 50%) 50 ml Q30M PRN IV Hypoglycemia 11/02/18 06:45 12/02/18 06:44 Dobutamine HCl 250 ml @ 20.1 mls/hr Q24H IV 11/02/18 13:04 11/18/18 13:03 11/02/18 11:00 Dopamine HCl/ Dextrose 250 ml @ 0 mls/hr Q24H IV 10/19/18 12:45 11/18/18 12:44 10/20/18 17:43 Haloperidol Lactate (Haldol) 5 mg Q6H PRN IM Agitation 10/18/18 17:00 11/17/18 16:59 10/31/18 15:28 Heparin Sodium (Porcine) (Heparin Sod 1000 units/ml 10ml) 500 unit ONCE PRN IV FOR HD USE ONLY 11/01/18 12:00 11/03/18 23:59 Insulin Aspart (NovoLOG) EVERY 6 HOURS SUBQ 10/30/18 12:00 11/22/18 08:59 11/02/18 06:05 Insulin Detemir (Levemir) 6 units DAILY SUBQ 11/02/18 09:00 12/02/18 08:59 Latanoprost (Xalatan) 1 drop BEDTIME BOTH EYES 10/18/18 21:00 11/10/18 20:59 11/01/18 21:01 Loperamide HCl (Imodium) 2 mg Q4H PRN ORAL Diarrhea 10/27/18 09:45 11/26/18 09:44 Meropenem 500 mg/ Sodium Chloride 50 ml @ 100 mls/hr Q24HRS IVPB 11/02/18 00:00 11/07/18 00:00 11/02/18 00:25 Micafungin Sodium 100 mg/Sodium Chloride 100 ml @ 100 mls/hr Q24H IVPB 11/01/18 17:00 11/08/18 16:59 11/01/18 17:24 Midodrine (Pro-Amatine) 5 mg THREE TIMES A DAY ORAL 10/30/18 13:00 11/29/18 08:59 11/02/18 09:00 Norepinephrine Bitartrate 16 mg/ Dextrose 500 ml @ 0 mls/hr Q24H IV 10/20/18 18:00 11/19/18 17:59 11/02/18 07:18 Ondansetron HCl (Zofran) 4 mg Q8H PRN IVP Nausea & Vomiting 10/18/18 17:00 11/17/18 16:59 Pantoprazole (Protonix) 40 mg DAILY IVP 11/02/18 09:00 12/02/18 08:59 11/02/18 09:00 Promethazine HCl (Phenergan [place]) 6.25 mg Q6H PRN ORAL For Cough 10/18/18 16:45 11/10/18 04:32 Vancomycin HCl (Vanco rx to dose) 1 ea DAILY PRN MISC Per rx protocol 10/19/18 23:30 11/18/18 23:29 Vasopressin 100 units/Sodium Chloride 100 ml @ 2.4 mls/hr Q24H IV 10/22/18 15:00 11/21/18 14:59 10/25/18 15:13 Laboratory Tests 11/02/18 03:25: White Blood Count 12.5H, Red Blood Count 3.03L, Hemoglobin 8.5L, Hematocrit 27.5L, Mean Corpuscular Volume 91, Mean Corpuscular Hemoglobin 28.2, Mean Corpuscular Hemoglobin Concent 31.0L, Red Cell Distribution Width 24.9H, Platelet Count 60L, Mean Platelet Volume 6.7, Neutrophils (%) (Auto) , Lymphocytes (%) (Auto) , Monocytes (%) (Auto) , Eosinophils (%) (Auto) , Basophils (%) (Auto) , Differential Total Cells Counted 100, Neutrophils % ( Manual) 73, Lymphocytes % (Manual) 7L, Monocytes % (Manual) 3, Eosinophils % ( Manual) 0, Basophils % (Manual) 0, Band Neutrophils 17H, Nucleated Red Blood Cells 1, Platelet Estimate DecreasedL, Platelet Morphology Normal, Polychromasia 2+, Anisocytosis 3+, [place] Cells 1+, Sodium Level 125L, Potassium Level 4.3, Chloride Level 91L, Carbon Dioxide Level 21, Anion Gap 13, Blood Urea Nitrogen 79H, Creatinine 3.5H, Estimat Glomerular Filtration Rate , Glucose Level 212H, Calcium Level 8.2L, Total Bilirubin 5.7H, Direct Bilirubin 4.1H, Aspartate Amino Transf (AST/SGOT) 100H, Alanine Aminotransferase (ALT/SGPT ) 48, Alkaline Phosphatase 237H, Troponin I 1.174H, Total Protein 5.1L, Albumin 1.0L, Globulin 4.1, Albumin/Globulin Ratio 0.2L Height (Feet): 5 Height (Inches): 2.00 Weight (Pounds): 205 Objective exam stable Aaron Eduardo MD Nov 02, 2018 11:23
[2018-11-02] MEDS: DOPamine 400mg/250ml 250 ML IV SCH (12:00)
--- NOTE | 2018-11-02 13:37 | NUR ---
[employer] SI: RESP FAILURE ETT/VENT SUPPORT T. 97.6 HR 105 RR 28 B/P 86/41 AC 20 TV 500 FIO2 30% PEEP 5 WBC 12.5 BANDS 17 NA 125 BUN 79 CR 3.5 ALK PHOS 237 TROP 1.174 IS: DOBUTAMINE GTT LEVOPHED GTT DOPAMINE GTT MEROPENEM IV PROTONIX IV MICAFUNGIN IV VASOPRESSIN GTT ICU STATUS
[2018-11-02] MEDS: Vasopressin 100 UNITS in NS 95 ML IV SCH (14:23)
--- NOTE | 2018-11-02 14:26 | NUR ---
1300 PT,SEEN BY,CHRISTA WEANNING FAILED RR>35 PL[address] BACK ON AC
--- NOTE | 2018-11-02 14:31 | NUR ---
@1400 HD STARTED VIA RT,IJ QC SBP>111 STABLE CONT,DOBUTREX @5MEQ
--- NOTE | 2018-11-02 15:14 | Cardiology Report ---
APPROVED REPORT EXAM: Two-dimensional and M-mode echocardiogram with Doppler and color Doppler. INDICATION Congestive Heart Failure M-Mode DIMENSIONS IVSd1.0 (0.7-1.1cm)Left Atrium (MM)4.0 (1.6-4.0cm) LVDd6.1 (3.5-5.6cm)Aortic Root2.8 (2.0-3.7cm) PWd1.0 (0.7-1.1cm)Aortic Cusp Exc.1.0 (1.5-2.0cm) LVDs5.3 (2.5-4.0cm) PWs1.3 cm Technically difficult study due to poor acoustic windows. Study quality precludes accurate assessment of regional wall motion. Mild left ventricular enlargement. septal and apical and inferior wall hypokinesis Left ventricular ejection fraction estimated to be 30-35 %. in idrect comparison with older study on 10/12/2018 not seem sig changed study perfomred while pt on dobutamine No evidence of left ventricular hypertrophy. Small pericardial effusion. All other cardiac chamber sizes are within normal limits. Aortic valve calcification with decreased cusp excursion c/w aortic stenosis. Mildly thickened mitral valve leaflets with normal excursion. Mild mitral annulus and aortic root calcification. Normal pulmonic valve structure. Normal tricuspid valve structure. Subcostal views not obtainable. A color flow and spectral Doppler study was performed and revealed: Moderate aortic insufficiency. Peak aortic valve gradient of 18 mmHg and a mean of 10 mmHg. Aortic valve area 1.0 cm2 calculated by continuity equation. Moderate mitral regurgitation. Mitral inflow velocities indicates possible pseudo normalization pattern implying significant left ventricular diastolic dysfunction (Grade II). Mild to moderate tricuspid regurgitation. Tricuspid systolic velocities suggests peak right ventricular systolic pressure of 46 mmHg, consistent with moderate pulmonary hypertension. Mild to moderate pulmonic regurgitation present.
--- NOTE | 2018-11-02 15:28 | Cardiology Progress Note ---
Assessment/Plan Assessment/Plan cardiology critical care 1. Hypoglycemia secondary to medication. 2. Diabetes mellitus previously. 3. Acute Respiratory inusf / hemoptysis 4. History of ischemic cardiomyopathy with ejection fraction of 40%. 5. Mitral regurgitation, [id number] degree on recent echocardiogram last week. 6. Moderate tricuspid regurgitation. 7. Mild pulmonary hypertension with 43 through 48. 8. Pleural effusions history. 9. Abnormal gastric endoscopy, suspicious for malignancy with submucosal resection. 10. Aortic stenosis. 11. Hyperlipidemia. 12. Prostate cancer. 13. Abnormal facial asymmetry. 14. CAD 15. AMS 16. NSTEMI demand related vs PE related doubt acs 17. acute on chronic renal failure 18. metabolic acidosis 19. hemiparesis 20. hypotension / septic shock 21. Thrombocytopenia 22. abn lft probable shock liver ? 23. profound hyponatremia 24. hyper bilirubinemia 25. pelvic mass 26. hydronephrosis and hydroureter echo reviewed has infor post swma and mod mr and ef probabley 35-40% , rv is not enlarge ivc ws enlarged at the time was done v/q was ordered but not done plt are still low despite being off heparin is on abx adjusted by id lft down trending bili elevated adn stable echo personally reviwed not [facility] chage in lv function comparedd to prior one venous duplex neg cxr personally reviewed ekg trop upward trend again earlier today was on dobutamine adn off levophed priro to dialysis some Levophed added, will tolerate sbp in the 90's d/w dr gibson to see about dialysis again tomorrow if able to get off levophed agian he will try dry UF he will otherwise need trach updated familyabout ther possibility of needing trach adn peg adn the poor quality of life , he will discuss with other family member 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 d/w dr gibson Subjective Cardiovascular: Denies: chest pain, lightheadedness Respiratory: Reports: shortness of breath - some Gastrointestinal/Abdominal: Denies: abdominal pain - no Subjective intubated follows commnads Objective Last 24 Hour Vital Signs Date Time Temp Pulse Resp B/P (MAP) Pulse Ox O2 Delivery O2 Flow Rate FiO2 11/02/18 15:11 100 32 30 11/02/18 14:30 99 20 93/37 (55) 99 11/02/18 14:00 98 20 111/50 (70) 99 11/02/18 13:30 99 22 88/40 (56) 99 11/02/18 13:01 105 28 30 11/02/18 13:00 98 26 92/43 (59) 99 11/02/18 12:33 98 20 97/36 (56) 92 11/02/18 12:00 98 11/02/18 12:00 Mechanical Ventilator 11/02/18 12:00 97.6 97 20 86/41 (56) 92 11/02/18 12:00 99 20 81/39 (53) 92 11/02/18 11:30 99 20 81/39 (53) 92 11/02/18 11:01 101 22 88/40 (56) 93 11/02/18 11:00 84/43 11/02/18 11:00 30 11/02/18 10:48 103 33 30 11/02/18 10:30 100 22 84/38 (53) 93 11/02/18 10:00 101 22 84/40 (55) 93 11/02/18 09:30 103 27 79/39 (52) 96 11/02/18 09:00 103 29 85/45 (58) 100 11/02/18 09:00 100 11/02/18 08:57 100 37 30 11/02/18 08:30 103 26 90/44 (59) 100 11/02/18 08:30 30 11/02/18 08:00 30 11/02/18 08:00 Mechanical Ventilator 11/02/18 08:00 102 11/02/18 08:00 97.3 102 26 85/42 (56) 100 11/02/18 07:18 98/50 11/02/18 07:00 105 25 98/50 (66) 100 11/02/18 06:55 106 25 30 11/02/18 06:30 105 26 11/02/18 06:30 100 25 104/45 (64) 100 11/02/18 06:00 106 24 110/45 (66) 100 11/02/18 05:30 105 25 96/45 (62) 100 11/02/18 05:22 108 25 30 11/02/18 05:00 104 25 105/51 (69) 99 11/02/18 04:30 102 24 111/63 (79) 99 11/02/18 04:00 98.6 105 24 101/40 (60) 99 11/02/18 04:00 30 11/02/18 04:00 105 11/02/18 04:00 Mechanical Ventilator 11/02/18 03:30 106 24 100/43 (62) 99 11/02/18 03:00 104 24 107/46 (66) 99 11/02/18 02:47 106 25 30 11/02/18 02:30 104 24 105/47 (66) 99 11/02/18 02:00 102 26 107/45 (65) 99 11/02/18 01:37 99 24 30 11/02/18 01:30 104 20 102/47 (65) 99 11/02/18 01:00 103 20 97/53 (68) 99 11/02/18 00:30 104 20 103/51 (68) 99 11/02/18 00:00 102 11/02/18 00:00 98.2 105 20 108/41 (63) 99 11/02/18 00:00 Mechanical Ventilator 11/02/18 00:00 30 11/01/18 23:30 104 20 99/42 (61) 99 11/01/18 23:19 104 24 30 11/01/18 23:08 93/45 11/01/18 23:00 104 20 88/40 (56) 99 11/01/18 22:30 104 20 110/61 (77) 99 11/01/18 22:00 105 18 103/61 (75) 99 11/01/18 21:30 104 18 103/40 (61) 99 11/01/18 21:00 105 18 122/42 (68) 99 11/01/18 20:36 104 26 30 11/01/18 20:30 104 18 94/44 (61) 100 11/01/18 20:21 104 28 Mechanical Ventilator 30 11/01/18 20:13 101/51 11/01/18 20:00 30 11/01/18 20:00 Mechanical Ventilator 11/01/18 20:00 105 11/01/18 20:00 98.0 103 18 97/36 (56) 100 11/01/18 19:30 103 0 79/35 (50) 100 11/01/18 19:20 104 28 30 11/01/18 19:00 103 0 99/48 (65) 99 11/01/18 18:30 106 21 109/44 (65) 100 11/01/18 18:00 105 26 92/38 (56) 11/01/18 17:30 106 29 114/59 (77) 100 11/01/18 17:00 106 29 30 11/01/18 17:00 105 26 90/53 (65) 100 11/01/18 16:30 103 9 89/43 (58) 100 11/01/18 16:00 103 11/01/18 16:00 30 11/01/18 16:00 Mechanical Ventilator 11/01/18 16:00 99.0 102 0 77/36 (50) 99 11/01/18 15:30 103 20 87/20 (42) 100 General Appearance: no apparent distress, alert, on vent Cardiovascular: normal rate Respiratory/Chest: lungs clear - ante Abdomen: normal bowel sounds, non tender, soft Extremities: severe edema Intake and Output 11/01/18 11/02/18 19:00 07:00 Intake Total 1030.50 ml 1562.55 ml Output Total 500 ml 250 ml Balance 530.50 ml 1312.55 ml Free Water 90 ml IV Total 550.50 ml 992.55 ml Tube Feeding 480 ml 480 ml Stool Total 500 ml 250 ml Laboratory Tests Test 11/02/18 03:25 White Blood Count 12.5 K/UL (4.8-10.8) H Red Blood Count 3.03 M/UL (4.70-6.10) L Hemoglobin 8.5 G/DL (14.2-18.0) L Hematocrit 27.5 % (42.0-52.0) L Mean Corpuscular Volume 91 FL (80-99) Mean Corpuscular Hemoglobin 28.2 PG (27.0-31.0) Mean Corpuscular Hemoglobin Concent 31.0 G/DL (32.0-36.0) L Red Cell Distribution Width 24.9 % (11.6-14.8) H Platelet Count 60 K/UL (150-450) L Mean Platelet Volume 6.7 FL (6.5-10.1) Neutrophils (%) (Auto) % (45.0-75.0) Lymphocytes (%) (Auto) % (20.0-45.0) Monocytes (%) (Auto) % (1.0-10.0) Eosinophils (%) (Auto) % (0.0-3.0) Basophils (%) (Auto) % (0.0-2.0) Differential Total Cells Counted 100 Neutrophils % (Manual) 73 % (45-75) Lymphocytes % (Manual) 7 % (20-45) L Monocytes % (Manual) 3 % (1-10) Eosinophils % (Manual) 0 % (0-3) Basophils % (Manual) 0 % (0-2) Band Neutrophils 17 % (0-8) H Nucleated Red Blood Cells 1 /100 WBC Platelet Estimate Decreased L Platelet Morphology Normal Polychromasia 2+ Anisocytosis 3+ Indra Cells 1+ Sodium Level 125 MMOL/L (136-145) L Potassium Level 4.3 MMOL/L (3.5-5.1) Chloride Level 91 MMOL/L (98-107) L Carbon Dioxide Level 21 MMOL/L (21-32) Anion Gap 13 mmol/L (5-15) Blood Urea Nitrogen 79 mg/dL (7-18) H Creatinine 3.5 MG/DL (0.55-1.30) H Estimat Glomerular Filtration Rate mL/min (>60) Glucose Level 212 MG/DL (74-106) H Calcium Level 8.2 MG/DL (8.5-10.1) L Total Bilirubin 5.7 MG/DL (0.2-1.0) H Direct Bilirubin 4.1 MG/DL (0.0-0.3) H Aspartate Amino Transf (AST/SGOT) 100 U/L (15-37) H Alanine Aminotransferase (ALT/SGPT) 48 U/L (12-78) Alkaline Phosphatase 237 U/L (46-116) H Troponin I 1.174 ng/mL (0.000-0.056) Total Protein 5.1 G/DL (6.4-8.2) L Albumin 1.0 G/DL (3.4-5.0) L Globulin 4.1 g/dL Albumin/Globulin Ratio 0.2 (1.0-2.7) L Dg Key MD Nov 02, 2018 15:28
--- NOTE | 2018-11-02 15:32 | Nephrology Progress Note ---
Assessment/Plan Problem List: (1) Acute kidney injury superimposed on CKD Assessment: no recovery (2) CHF (congestive heart failure) (3) NSTEMI (non-ST elevated myocardial infarction) (4) Hypotension Assessment: ON HIGH DOSE LEVOPHED (5) Pneumonia (6) Hypoglycemia (7) Respiratory failure, acute (8) Sepsis (9) Hyponatremia Assessment: BETTER Plan HD as tolerated Discussed with RN and Dr Key continue pressors abxs per ID follow labs Vent support TF Subjective Subjective In NAD Objective Objective Last 24 Hour Vital Signs Date Time Temp Pulse Resp B/P (MAP) Pulse Ox O2 Delivery O2 Flow Rate FiO2 11/02/18 15:11 100 32 30 11/02/18 15:00 105 30 90/42 (58) 100 11/02/18 14:30 99 20 93/37 (55) 99 11/02/18 14:00 98 20 111/50 (70) 99 11/02/18 13:30 99 22 88/40 (56) 99 11/02/18 13:01 105 28 30 11/02/18 13:00 98 26 92/43 (59) 99 11/02/18 12:33 98 20 97/36 (56) 92 11/02/18 12:00 98 11/02/18 12:00 Mechanical Ventilator 11/02/18 12:00 97.6 97 20 86/41 (56) 92 11/02/18 12:00 99 20 81/39 (53) 92 11/02/18 11:30 99 20 81/39 (53) 92 11/02/18 11:01 101 22 88/40 (56) 93 11/02/18 11:00 84/43 11/02/18 11:00 30 11/02/18 10:48 103 33 30 11/02/18 10:30 100 22 84/38 (53) 93 11/02/18 10:00 101 22 84/40 (55) 93 11/02/18 09:30 103 27 79/39 (52) 96 11/02/18 09:00 103 29 85/45 (58) 100 11/02/18 09:00 100 11/02/18 08:57 100 37 30 11/02/18 08:30 103 26 90/44 (59) 100 11/02/18 08:30 30 11/02/18 08:00 30 11/02/18 08:00 Mechanical Ventilator 11/02/18 08:00 102 11/02/18 08:00 97.3 102 26 85/42 (56) 100 11/02/18 07:18 98/50 11/02/18 07:00 105 25 98/50 (66) 100 11/02/18 06:55 106 25 30 11/02/18 06:30 105 26 11/02/18 06:30 100 25 104/45 (64) 100 11/02/18 06:00 106 24 110/45 (66) 100 11/02/18 05:30 105 25 96/45 (62) 100 11/02/18 05:22 108 25 30 11/02/18 05:00 104 25 105/51 (69) 99 11/02/18 04:30 102 24 111/63 (79) 99 11/02/18 04:00 98.6 105 24 101/40 (60) 99 11/02/18 04:00 30 11/02/18 04:00 105 11/02/18 04:00 Mechanical Ventilator 11/02/18 03:30 106 24 100/43 (62) 99 11/02/18 03:00 104 24 107/46 (66) 99 11/02/18 02:47 106 25 30 11/02/18 02:30 104 24 105/47 (66) 99 11/02/18 02:00 102 26 107/45 (65) 99 11/02/18 01:37 99 24 30 11/02/18 01:30 104 20 102/47 (65) 99 11/02/18 01:00 103 20 97/53 (68) 99 11/02/18 00:30 104 20 103/51 (68) 99 11/02/18 00:00 102 11/02/18 00:00 98.2 105 20 108/41 (63) 99 11/02/18 00:00 Mechanical Ventilator 11/02/18 00:00 30 11/01/18 23:30 104 20 99/42 (61) 99 11/01/18 23:19 104 24 30 11/01/18 23:08 93/45 11/01/18 23:00 104 20 88/40 (56) 99 11/01/18 22:30 104 20 110/61 (77) 99 11/01/18 22:00 105 18 103/61 (75) 99 11/01/18 21:30 104 18 103/40 (61) 99 11/01/18 21:00 105 18 122/42 (68) 99 11/01/18 20:36 104 26 30 11/01/18 20:30 104 18 94/44 (61) 100 11/01/18 20:21 104 28 Mechanical Ventilator 30 11/01/18 20:13 101/51 11/01/18 20:00 30 11/01/18 20:00 Mechanical Ventilator 11/01/18 20:00 105 11/01/18 20:00 98.0 103 18 97/36 (56) 100 11/01/18 19:30 103 0 79/35 (50) 100 11/01/18 19:20 104 28 30 11/01/18 19:00 103 0 99/48 (65) 99 11/01/18 18:30 106 21 109/44 (65) 100 11/01/18 18:00 105 26 92/38 (56) 11/01/18 17:30 106 29 114/59 (77) 100 11/01/18 17:00 106 29 30 11/01/18 17:00 105 26 90/53 (65) 100 11/01/18 16:30 103 9 89/43 (58) 100 11/01/18 16:00 103 11/01/18 16:00 30 11/01/18 16:00 Mechanical Ventilator 11/01/18 16:00 99.0 102 0 77/36 (50) 99 Intake and Output 11/01/18 11/02/18 19:00 07:00 Intake Total 1030.50 ml 1562.55 ml Output Total 500 ml 250 ml Balance 530.50 ml 1312.55 ml Free Water 90 ml IV Total 550.50 ml 992.55 ml Tube Feeding 480 ml 480 ml Stool Total 500 ml 250 ml Laboratory Tests 11/02/18 03:25: White Blood Count 12.5H, Red Blood Count 3.03L, Hemoglobin 8.5L, Hematocrit 27.5L, Mean Corpuscular Volume 91, Mean Corpuscular Hemoglobin 28.2, Mean Corpuscular Hemoglobin Concent 31.0L, Red Cell Distribution Width 24.9H, Platelet Count 60L, Mean Platelet Volume 6.7, Neutrophils (%) (Auto) , Lymphocytes (%) (Auto) , Monocytes (%) (Auto) , Eosinophils (%) (Auto) , Basophils (%) (Auto) , Differential Total Cells Counted 100, Neutrophils % ( Manual) 73, Lymphocytes % (Manual) 7L, Monocytes % (Manual) 3, Eosinophils % ( Manual) 0, Basophils % (Manual) 0, Band Neutrophils 17H, Nucleated Red Blood Cells 1, Platelet Estimate DecreasedL, Platelet Morphology Normal, Polychromasia 2+, Anisocytosis 3+, [place] Cells 1+, Sodium Level 125L, Potassium Level 4.3, Chloride Level 91L, Carbon Dioxide Level 21, Anion Gap 13, Blood Urea Nitrogen 79H, Creatinine 3.5H, Estimat Glomerular Filtration Rate , Glucose Level 212H, Calcium Level 8.2L, Total Bilirubin 5.7H, Direct Bilirubin 4.1H, Aspartate Amino Transf (AST/SGOT) 100H, Alanine Aminotransferase (ALT/SGPT ) 48, Alkaline Phosphatase 237H, Troponin I 1.174H, Total Protein 5.1L, Albumin 1.0L, Globulin 4.1, Albumin/Globulin Ratio 0.2L Height (Feet): 5 Height (Inches): 2.00 Weight (Pounds): 205 Cardiovascular: normal rate, tachycardia Respiratory/Chest: rhonchi - bilaterally Extremities: moderate edema Mario Porter MD Nov 02, 2018 15:32
[2018-11-02] MEDS ORDERED: NS 275ml ONE ×2 (16:08→19:24)
[2018-11-02] MEDS ORDERED: Sterile Water For Inj 1000ml IV ONE (16:08)
--- NOTE | 2018-11-02 16:24 | General Progress Note ---
Assessment/Plan Assessment/Plan Assessment - Abnormal LFT, gradually improving - Nodular liver, ascites, low albumin - possible cirrhosis - Respiratory failure - Dysphagia - may need GT - Ascites - would need PEG placed surgically - s/p rubén - CAD - Diarrhea - hydronephrosis with pelvic mass Recommendations - f/u additional liver serologies - follow LFT - Vent care - Tube feeds - Rectal tube - Urology f/u Subjective Allergies: Coded Allergies: PENICILLINS (Verified Allergy, Unknown, 10/09/18) Subjective Elderly WM intubated tolerating TF failed weaning trials Objective Last 24 Hour Vital Signs Date Time Temp Pulse Resp B/P (MAP) Pulse Ox O2 Delivery O2 Flow Rate FiO2 11/02/18 15:30 103 32 81/43 (56) 100 11/02/18 15:11 100 32 30 11/02/18 15:00 105 30 90/42 (58) 100 11/02/18 14:30 99 20 93/37 (55) 99 11/02/18 14:00 98 20 111/50 (70) 99 11/02/18 13:30 99 22 88/40 (56) 99 11/02/18 13:01 105 28 30 11/02/18 13:00 98 26 92/43 (59) 99 11/02/18 12:33 98 20 97/36 (56) 92 11/02/18 12:00 98 11/02/18 12:00 Mechanical Ventilator 11/02/18 12:00 97.6 97 20 86/41 (56) 92 11/02/18 12:00 99 20 81/39 (53) 92 11/02/18 11:30 99 20 81/39 (53) 92 11/02/18 11:01 101 22 88/40 (56) 93 11/02/18 11:00 84/43 11/02/18 11:00 30 11/02/18 10:48 103 33 30 11/02/18 10:30 100 22 84/38 (53) 93 11/02/18 10:00 101 22 84/40 (55) 93 11/02/18 09:30 103 27 79/39 (52) 96 11/02/18 09:00 103 29 85/45 (58) 100 11/02/18 09:00 100 11/02/18 08:57 100 37 30 2/26/19 08:30 103 26 90/44 (59) 100 11/02/18 08:30 30 11/02/18 08:00 30 11/02/18 08:00 Mechanical Ventilator 11/02/18 08:00 102 11/02/18 08:00 97.3 102 26 85/42 (56) 100 11/02/18 07:18 98/50 11/02/18 07:00 105 25 98/50 (66) 100 11/02/18 06:55 106 25 30 11/02/18 06:30 105 26 11/02/18 06:30 100 25 104/45 (64) 100 11/02/18 06:00 106 24 110/45 (66) 100 11/02/18 05:30 105 25 96/45 (62) 100 11/02/18 05:22 108 25 30 11/02/18 05:00 104 25 105/51 (69) 99 11/02/18 04:30 102 24 111/63 (79) 99 11/02/18 04:00 98.6 105 24 101/40 (60) 99 11/02/18 04:00 30 11/02/18 04:00 105 11/02/18 04:00 Mechanical Ventilator 11/02/18 03:30 106 24 100/43 (62) 99 11/02/18 03:00 104 24 107/46 (66) 99 11/02/18 02:47 106 25 30 11/02/18 02:30 104 24 105/47 (66) 99 11/02/18 02:00 102 26 107/45 (65) 99 11/02/18 01:37 99 24 30 11/02/18 01:30 104 20 102/47 (65) 99 11/02/18 01:00 103 20 97/53 (68) 99 11/02/18 00:30 104 20 103/51 (68) 99 11/02/18 00:00 102 11/02/18 00:00 98.2 105 20 108/41 (63) 99 11/02/18 00:00 Mechanical Ventilator 11/02/18 00:00 30 11/01/18 23:30 104 20 99/42 (61) 99 11/01/18 23:19 104 24 30 11/01/18 23:08 93/45 11/01/18 23:00 104 20 88/40 (56) 99 11/01/18 22:30 104 20 110/61 (77) 99 11/01/18 22:00 105 18 103/61 (75) 99 11/01/18 21:30 104 18 103/40 (61) 99 11/01/18 21:00 105 18 122/42 (68) 99 11/01/18 20:36 104 26 30 11/01/18 20:30 104 18 94/44 (61) 100 11/01/18 20:21 104 28 Mechanical Ventilator 30 11/01/18 20:13 101/51 11/01/18 20:00 30 11/01/18 20:00 Mechanical Ventilator 11/01/18 20:00 105 11/01/18 20:00 98.0 103 18 97/36 (56) 100 11/01/18 19:30 103 0 79/35 (50) 100 11/01/18 19:20 104 28 30 11/01/18 19:00 103 0 99/48 (65) 99 11/01/18 18:30 106 21 109/44 (65) 100 11/01/18 18:00 105 26 92/38 (56) 11/01/18 17:30 106 29 114/59 (77) 100 11/01/18 17:00 106 29 30 11/01/18 17:00 105 26 90/53 (65) 100 11/01/18 16:30 103 9 89/43 (58) 100 Intake and Output 11/01/18 11/02/18 18:59 06:59 Intake Total 1030.75 ml 1426.20 ml Output Total 750 ml Balance 1030.75 ml 676.20 ml Free Water 30 ml IV Total 550.75 ml 916.20 ml Tube Feeding 480 ml 480 ml Stool Total 750 ml Laboratory Tests 11/02/18 03:25: White Blood Count 12.5H, Red Blood Count 3.03L, Hemoglobin 8.5L, Hematocrit 27.5L, Mean Corpuscular Volume 91, Mean Corpuscular Hemoglobin 28.2, Mean Corpuscular Hemoglobin Concent 31.0L, Red Cell Distribution Width 24.9H, Platelet Count 60L, Mean Platelet Volume 6.7, Neutrophils (%) (Auto) , Lymphocytes (%) (Auto) , Monocytes (%) (Auto) , Eosinophils (%) (Auto) , Basophils (%) (Auto) , Differential Total Cells Counted 100, Neutrophils % ( Manual) 73, Lymphocytes % (Manual) 7L, Monocytes % (Manual) 3, Eosinophils % ( Manual) 0, Basophils % (Manual) 0, Band Neutrophils 17H, Nucleated Red Blood Cells 1, Platelet Estimate DecreasedL, Platelet Morphology Normal, Polychromasia 2+, Anisocytosis 3+, Indra Cells 1+, Sodium Level 125L, Potassium Level 4.3, Chloride Level 91L, Carbon Dioxide Level 21, Anion Gap 13, Blood Urea Nitrogen 79H, Creatinine 3.5H, Estimat Glomerular Filtration Rate , Glucose Level 212H, Calcium Level 8.2L, Total Bilirubin 5.7H, Direct Bilirubin 4.1H, Aspartate Amino Transf (AST/SGOT) 100H, Alanine Aminotransferase (ALT/SGPT ) 48, Alkaline Phosphatase 237H, Troponin I 1.174H, Total Protein 5.1L, Albumin 1.0L, Globulin 4.1, Albumin/Globulin Ratio 0.2L Height (Feet): 5 Height (Inches): 2.00 Weight (Pounds): 205 Objective WDWN NCAT Neck supple Chest CTA RRR Abd Soft ND NT no edema Tracy Lynn MD Nov 02, 2018 16:24
--- NOTE | 2018-11-02 16:47 | NUR ---
1630 pt,seen by heidi solitario no new orders
--- NOTE | 2018-11-02 16:49 | NUR ---
HD COMPLETED UF 2000ML [id number] AWAKE/ABLE TO COMMUNICATE BY VERBAL NO C/O DISCOMFORT
--- NOTE | 2018-11-02 17:51 | Neurology Progress Note ---
Interim History Interim History Interim History Mr. Gann feels better. He is more responsive. He opens his eyes on vocal stimulation. He is able to give yes/no answers. He follows commands inconsistently He is still moving his left side better than the right. He continues to be on a single pressor. He continues to be intubated and artificially ventilated. He still has significant anasarca. Review of Systems Neuro Review of Systems Unable to obtain. Objective Physical Exam Last Vital Signs Date Time Temp Pulse Resp B/P (MAP) Pulse Ox O2 Delivery O2 Flow Rate FiO2 11/02/18 17:00 109 27 30 11/02/18 16:30 100/53 (69) 100 11/02/18 16:00 98.2 11/02/18 16:00 Mechanical Ventilator Laboratory Tests Test 11/02/18 03:25 White Blood Count 12.5 K/UL (4.8-10.8) H Red Blood Count 3.03 M/UL (4.70-6.10) L Hemoglobin 8.5 G/DL (14.2-18.0) L Hematocrit 27.5 % (42.0-52.0) L Mean Corpuscular Volume 91 FL (80-99) Mean Corpuscular Hemoglobin 28.2 PG (27.0-31.0) Mean Corpuscular Hemoglobin Concent 31.0 G/DL (32.0-36.0) L Red Cell Distribution Width 24.9 % (11.6-14.8) H Platelet Count 60 K/UL (150-450) L Mean Platelet Volume 6.7 FL (6.5-10.1) Neutrophils (%) (Auto) % (45.0-75.0) Lymphocytes (%) (Auto) % (20.0-45.0) Monocytes (%) (Auto) % (1.0-10.0) Eosinophils (%) (Auto) % (0.0-3.0) Basophils (%) (Auto) % (0.0-2.0) Differential Total Cells Counted 100 Neutrophils % (Manual) 73 % (45-75) Lymphocytes % (Manual) 7 % (20-45) L Monocytes % (Manual) 3 % (1-10) Eosinophils % (Manual) 0 % (0-3) Basophils % (Manual) 0 % (0-2) Band Neutrophils 17 % (0-8) H Nucleated Red Blood Cells 1 /100 WBC Platelet Estimate Decreased L Platelet Morphology Normal Polychromasia 2+ Anisocytosis 3+ [place] Cells 1+ Sodium Level 125 MMOL/L (136-145) L Potassium Level 4.3 MMOL/L (3.5-5.1) Chloride Level 91 MMOL/L (98-107) L Carbon Dioxide Level 21 MMOL/L (21-32) Anion Gap 13 mmol/L (5-15) Blood Urea Nitrogen 79 mg/dL (7-18) H Creatinine 3.5 MG/DL (0.55-1.30) H Estimat Glomerular Filtration Rate mL/min (>60) Glucose Level 212 MG/DL (74-106) H Calcium Level 8.2 MG/DL (8.5-10.1) L Total Bilirubin 5.7 MG/DL (0.2-1.0) H Direct Bilirubin 4.1 MG/DL (0.0-0.3) H Aspartate Amino Transf (AST/SGOT) 100 U/L (15-37) H Alanine Aminotransferase (ALT/SGPT) 48 U/L (12-78) Alkaline Phosphatase 237 U/L (46-116) H Troponin I 1.174 ng/mL (0.000-0.056) Total Protein 5.1 G/DL (6.4-8.2) L Albumin 1.0 G/DL (3.4-5.0) L Globulin 4.1 g/dL Albumin/Globulin Ratio 0.2 (1.0-2.7) L Neurologic Exam Objective PHYSICAL EXAMINATION: GENERAL: He is a well-developed, relatively well-nourished, gentleman , lying in an ICU bed, connected to a ventilator through an orotracheal tube. HEAD: Normocephalic and atraumatic. NECK: No neck rigidity was observed. EENT: Benign. NEUROLOGICAL EXAMINATION: MENTAL STATUS EXAMINATION: He opened his eyes on vocal stimuli. He was awake but not completely alert. He followed simple commands more consistently. He was able to communicate with yes/no answers. Further mental status testing was impossible. SPEECH: Could not be tested. LANGUAGE: He was able to comprehend fairly well and mouth a few words. CRANIAL NERVE EXAMINATION: II: He did blink to threat. He counted fingers. III, IV & : The external ocular movements were present. The pupils were 3 mm in diameter, equal, round, regular, and did not react to light. V & VII: The corneal reflexes were present bilaterally, but significantly diminished on the right side compared to the left. VIII: He did not respond to sounds and had no nystagmus. IX & X: The gag reflex was absent on manipulating the endotracheal tube. XI: The sternocleidomastoids and trapezii did not function. XII: Could not be tested adequately. MOTOR SYSTEM: The tone was normal in all four extremities. Examination of muscle mass revealed no focal wasting. Examination of power was impossible to perform accurately - he moved his left side better than the right. SENSORY EXAMINATION: He responded appropriately to deep pain. He was unable to cooperate for other sensory modalities. REFLEXES: Trace+ and bilaterally symmetrical at the biceps, triceps, brachioradialis. 0 at both knees and ankles. The plantar response was extensor on the right and mute on the left. COORDINATION, STANCE & GAIT: Could not be tested. ABNORMAL MOVEMENTS: Tremor (7-8 Hz): 0/4 Impression/Recommendations Diagnostic Impression 1. Mr. Marla Gann is an 83-year-old, gentleman, of unknown handedness, with a past history of multiple medical problems including hypertension, diabetes mellitus, dyslipidemia, aortic stenosis, vitamin B12 deficiency, vitamin D deficiency, coronary artery disease, congestive heart failure, and intestinal pathology. He was hospitalized on 10/09/2018 for an altered mental state related to multiple metabolic imbalances. He did improve, but then in the hospital, he has had multiple further episodes of hypoglycemia. On the morning of 10/19/18, his blood sugar dropped to 22. He has also had problems with his respiratory function, progressive renal dysfunction, and on the morning of 10/19/18 was noted to have weakness in his right upper extremity, this problem continues. 2. He feels better. He is more alert and responsive. He opens his eyes on vocal stimulation. He is able to give yes/no answers. He follows commands more consistently. He is still moving his left side better than the right. He continues to be on a single pressor. He continues to be intubated and artificially ventilated. He still has significant anasarca. He continues to be ill. 3. On neurological examination, at this time, he opens his eyes on vocal stimuli , he is able to follow commands more consistently. He is able to communicate with yes/no answers, however further mental status testing is impossible. The corneal reflex is definitely diminished on the right side compared to the left. 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 His deep tendon reflexes are globally diminished in the upper extremities and lost in the lower extremities. His plantar response is extensor on the right and mute on the left. He has no tremor. 4. His laboratory data on my initial evaluation revealed that his WBC count was elevated to 16,000. His hemoglobin was low at 7.2 G. His arterial blood gas revealed a pH of 7.18, a pCO2 of 43, and a pO2 of 112. His chemistry panel revealed a sodium of 133, potassium of 5.3, chloride of 91, BUN at 89, creatinine at 5.2, and blood glucose at 22. 5. His EEG done on 10/19/18 revealed a moderately severe encephalopathy with a definite toxic/metabolic component. 6. The Repeat EEG done on 10/23/18 revealed a moderately severe toxic/metabolic encephalopathy. In addition left > right hemispheric dysfunction was seen. The abnormal movements had no EEG correlate. 7. The CT of the brain was benign for acute pathology. 8. His latest laboratory tests reveal that his leukocytosis is worse with a WBC count of 26,300. He is severely hyponatremic with a Na of 121 and chloride of 86. His BUN is elevated at 72 with a creatinine of 4.9. His LFTs are elevated and so is his glucose. 9. The patient's history, neurological examination, and laboratory data are most compatible with a significant toxic metabolic encephalopathy that brought him into the hospital, and now possibly an acute cerebral lesion causing the right hemiparesis. 10. The left UE movement was a tremor. It has now resolved. The EEG while he was having the tremor revealed no EEG correlate. 11. His encephalopathy is minimally better today. Recommendations 1. Continue present management. 2. Continue to correct toxic metabolic imbalances. 3. Try to keep the blood pressure >110 mmHg systolic. 4. When possible get MRI of brain. 5. Observe closely in ICU setting. Abram Johnson M.D., M.S.P.H. Abram Johnson MD Nov 02, 2018 17:51
--- NOTE | 2018-11-02 19:15 | NUR ---
NURSE NOTES:Received pt on agonal breathing, Sinus bradycardia on the monitor, SBP 35/21, HR 55/min, Pt DNR/DNI, On Levophed drip max at 30mcg/min, Dobutamine drip at 5mcg/kg/min, Pt very edematous, wheeping with fluids,multiple skin breakdown all over pts body covered with optifoam dry and intact. Pt was just dialyzed took out 2L per am JACQUI Gutierrez. Turned off fdg at this time- placed on supine position, Levophed maintained at 30mcg/min.-Will continue to monitor.
[2018-11-02] MEDS ORDERED: Tubing IV Secondary IV ONE (19:24)
--- NOTE | 2018-11-02 19:25 | NUR ---
NURSE NOTES:Pt become unresponsive, no bp no pulse, verified with doppler. fleet driverJACQUI Gipson was aware and called ER MD.
--- NOTE | 2018-11-02 19:47 | Pulmonolgy Critical Care Note ---
Critical Care - Asmt/Plan Problems: (1) Respiratory failure, acute (2) Ventilator dependence (3) CHF (congestive heart failure) (4) CAD (coronary artery disease) (5) NSTEMI (non-ST elevated myocardial infarction) (6) Respiratory acidosis (7) Hemoptysis (8) Hypoglycemia (9) Pneumonia (10) Hypotension (11) Elevated d-dimer (12) Acute kidney injury superimposed on CKD Assessment & Plan: S/P initiation of HD (13) Hyponatremia (14) Sepsis Respiratory: monitor respiratory rate, adjust FIO2, weaning trial, other - WILL LIKELY NEED A TRACHEOSTOMY Cardiac: continue pressors - Dobut per cards, continue to monitor HR/BP, other - F/u cards recs Renal: other - HD per renal with UF as able Infectious Disease: continue antibiotics - STEVE and STARR per ID Gastrointestinal: continue feedings/current rate Endocrine: monitor blood sugar, other - F/U ENDo Recs Hematologic: monitor H/H - and platelets, other - F/U HEMATOLOGY RECS Prophylaxis: Protonix, SCDs Time Spent (Minutes): 30 Notes Reviewed: state pilot, cardio, renal, ID, GI, neuro, other - ENDO Discussed with: nurses, consultants, other - DNAR Critical Care - Objective Last 24 Hour Vital Signs Date Time Temp Pulse Resp B/P (MAP) Pulse Ox O2 Delivery O2 Flow Rate FiO2 11/02/18 18:30 115 20 94/43 (60) 100 11/02/18 18:00 106 22 86/38 (54) 100 11/02/18 17:30 109 23 89/41 (57) 100 11/02/18 17:00 108 24 101/44 (63) 100 11/02/18 17:00 109 27 30 11/02/18 16:30 108 26 100/53 (69) 100 11/02/18 16:00 98.2 109 20 85/48 (60) 100 11/02/18 16:00 Mechanical Ventilator 11/02/18 16:00 106 11/02/18 16:00 30 11/02/18 15:30 103 32 81/43 (56) 100 11/02/18 15:11 100 32 30 11/02/18 15:00 105 30 90/42 (58) 100 11/02/18 14:30 99 20 93/37 (55) 99 11/02/18 14:00 98 20 111/50 (70) 99 11/02/18 13:30 99 22 88/40 (56) 99 11/02/18 13:01 105 28 30 11/02/18 13:00 98 26 92/43 (59) 99 11/02/18 12:33 98 20 97/36 (56) 92 11/02/18 12:00 98 11/02/18 12:00 Mechanical Ventilator 11/02/18 12:00 97.6 97 20 86/41 (56) 92 11/02/18 12:00 99 20 81/39 (53) 92 11/02/18 11:30 99 20 81/39 (53) 92 11/02/18 11:01 101 22 88/40 (56) 93 11/02/18 11:00 84/43 11/02/18 11:00 30 11/02/18 10:48 103 33 30 11/02/18 10:30 100 22 84/38 (53) 93 11/02/18 10:00 101 22 84/40 (55) 93 11/02/18 09:30 103 27 79/39 (52) 96 11/02/18 09:00 103 29 85/45 (58) 100 11/02/18 09:00 100 11/02/18 08:57 100 37 30 11/02/18 08:30 103 26 90/44 (59) 100 11/02/18 08:30 30 11/02/18 08:00 30 11/02/18 08:00 Mechanical Ventilator 11/02/18 08:00 102 11/02/18 08:00 97.3 102 26 85/42 (56) 100 11/02/18 07:18 98/50 11/02/18 07:00 105 25 98/50 (66) 100 11/02/18 06:55 106 25 30 11/02/18 06:30 105 26 11/02/18 06:30 100 25 104/45 (64) 100 11/02/18 06:00 106 24 110/45 (66) 100 11/02/18 05:30 105 25 96/45 (62) 100 11/02/18 05:22 108 25 30 11/02/18 05:00 104 25 105/51 (69) 99 11/02/18 04:30 102 24 111/63 (79) 99 11/02/18 04:00 98.6 105 24 101/40 (60) 99 11/02/18 04:00 30 11/02/18 04:00 105 11/02/18 04:00 Mechanical Ventilator 11/02/18 03:30 106 24 100/43 (62) 99 11/02/18 03:00 104 24 107/46 (66) 99 11/02/18 02:47 106 25 30 11/02/18 02:30 104 24 105/47 (66) 99 11/02/18 02:00 102 26 107/45 (65) 99 11/02/18 01:37 99 24 30 11/02/18 01:30 104 20 102/47 (65) 99 11/02/18 01:00 103 20 97/53 (68) 99 11/02/18 00:30 104 20 103/51 (68) 99 11/02/18 00:00 102 11/02/18 00:00 98.2 105 20 108/41 (63) 99 11/02/18 00:00 Mechanical Ventilator 11/02/18 00:00 30 11/01/18 23:30 104 20 99/42 (61) 99 11/01/18 23:19 104 24 30 11/01/18 23:08 93/45 11/01/18 23:00 104 20 88/40 (56) 99 11/01/18 22:30 104 20 110/61 (77) 99 11/01/18 22:00 105 18 103/61 (75) 99 11/01/18 21:30 104 18 103/40 (61) 99 11/01/18 21:00 105 18 122/42 (68) 99 11/01/18 20:36 104 26 30 11/01/18 20:30 104 18 94/44 (61) 100 11/01/18 20:21 104 28 Mechanical Ventilator 30 11/01/18 20:13 101/51 11/01/18 20:00 30 11/01/18 20:00 Mechanical Ventilator 11/01/18 20:00 105 11/01/18 20:00 98.0 103 18 97/36 (56) 100 Status: awake - intubated Condition: critical HEENT: atraumatic, normocephalic Lungs: rales Heart: HR/BP unstable Abdomen: soft, non-tender, active bowel sounds Extremities: edema - 2+ Accucheck: 264 Critical Care - Subjective ROS Limited/Unobtainable: Yes ICU Day: 16 Intubation Day: 15 Interval Events: On Dobut off NE Awake Failed SBT TTE unchanged Condition: critical IV Access: PICC, central EKG Rhythm: Sinus Rhythm FI02: 30 Vent Support Breath Rate: 20 Vent Support Mode: AC Vent Tidal Volume: 500 Sputum Amount: Small PEEP: 5.0 PIP: 36 Fluids: SLIV Drips: Dobut Tube Feeding Amount: 40 I&O: Intake and Output 11/01/18 11/02/18 18:59 06:59 Intake Total 1030.75 ml 1426.20 ml Output Total 750 ml Balance 1030.75 ml 676.20 ml Free Water 30 ml IV Total 550.75 ml 916.20 ml Tube Feeding 480 ml 480 ml Stool Total 750 ml Subjective: ZACHARY CXR: PVC ET-Tube: 7.5 ET Position: 23 Labs: Laboratory Tests Test 11/02/18 03:25 White Blood Count 12.5 K/UL (4.8-10.8) H Red Blood Count 3.03 M/UL (4.70-6.10) L Hemoglobin 8.5 G/DL (14.2-18.0) L Hematocrit 27.5 % (42.0-52.0) L Mean Corpuscular Volume 91 FL (80-99) Mean Corpuscular Hemoglobin 28.2 PG (27.0-31.0) Mean Corpuscular Hemoglobin Concent 31.0 G/DL (32.0-36.0) L Red Cell Distribution Width 24.9 % (11.6-14.8) H Platelet Count 60 K/UL (150-450) L Mean Platelet Volume 6.7 FL (6.5-10.1) Neutrophils (%) (Auto) % (45.0-75.0) Lymphocytes (%) (Auto) % (20.0-45.0) Monocytes (%) (Auto) % (1.0-10.0) Eosinophils (%) (Auto) % (0.0-3.0) Basophils (%) (Auto) % (0.0-2.0) Differential Total Cells Counted 100 Neutrophils % (Manual) 73 % (45-75) Lymphocytes % (Manual) 7 % (20-45) L Monocytes % (Manual) 3 % (1-10) Eosinophils % (Manual) 0 % (0-3) Basophils % (Manual) 0 % (0-2) Band Neutrophils 17 % (0-8) H Nucleated Red Blood Cells 1 /100 WBC Platelet Estimate Decreased L Platelet Morphology Normal Polychromasia 2+ Anisocytosis 3+ [place]ra Cells 1+ Sodium Level 125 MMOL/L (136-145) L Potassium Level 4.3 MMOL/L (3.5-5.1) Chloride Level 91 MMOL/L (98-107) L Carbon Dioxide Level 21 MMOL/L (21-32) Anion Gap 13 mmol/L (5-15) Blood Urea Nitrogen 79 mg/dL (7-18) H Creatinine 3.5 MG/DL (0.55-1.30) H Estimat Glomerular Filtration Rate mL/min (>60) Glucose Level 212 MG/DL (74-106) H Calcium Level 8.2 MG/DL (8.5-10.1) L Total Bilirubin 5.7 MG/DL (0.2-1.0) H Direct Bilirubin 4.1 MG/DL (0.0-0.3) H Aspartate Amino Transf (AST/SGOT) 100 U/L (15-37) H Alanine Aminotransferase (ALT/SGPT) 48 U/L (12-78) Alkaline Phosphatase 237 U/L (46-116) H Troponin I 1.174 ng/mL (0.000-0.056) Total Protein 5.1 G/DL (6.4-8.2) L Albumin 1.0 G/DL (3.4-5.0) L Globulin 4.1 g/dL Albumin/Globulin Ratio 0.2 (1.0-2.7) L Chidi Bourne MD Nov 02, 2018 19:47
--- NOTE | 2018-11-02 20:00 | NUR ---
NURSE NOTES: Family were notified by JACQUI Gipson, as well as Dr Key.
--- NOTE | 2018-11-02 20:15 | NUR ---
NURSE NOTES:Pt was pronounced By Dr aguilar. ERNESTO RUANO.
--- NOTE | 2018-11-02 20:20 | NUR ---
NURSE NOTES:Post mortem care done. Left message to all attending MDs.
--- NOTE | 2018-11-02 20:21 | General Progress Note ---
Assessment/Plan Assessment/Plan ASSESSMENT/RECS: # Thrombocytopenia -- multiple etiologies possible, has been on heparin gtt which was discontinued on 10/24 --> HIT antibody is final and negative --> smear has been reviewed, no e/o schistocytes is noted --> duplex lower extremities ordered and is negative for dvt --> anemia panel has been reviewed and is negative for hemolysis --> flow cytometry reviewed and is negative for leukemia/mds --> trend platelet count as needed # Leukocytosis likely related to underlying sepsis, flow cytometry is negative for underlying malignancy/no leukemia noted, no distinct immunophentype is noted --> r/o other underlying causes such as infection --> on abx as per id, antifungals --> if stable, can consider a bone marrow biopsy given nucleated cells on the peripheral smear that are persistent in future # Pelvic mass with hydrureter, questionable --> CA19.9 ad ca125 pending # Respiratory failure on a vent --> as per pulm management # Hyponatremia on ivf as per nephro # Colonic distention, abnormal liver function tests. --> as per gi # ESRD on hd as per vip --> on hd The timing of this note does not necessarily reflect the time of the patient was seen. Greatly appreciate consultation! Subjective ROS Limited/Unobtainable: Yes Constitutional: Denies: no symptoms, chills, diaphoresis, fever, malaise, weakness, other Allergies: Coded Allergies: PENICILLINS (Verified Allergy, Unknown, 10/09/18) Subjective 10/25: pt was seen in ICU , more alert today, no acute events reported. plt 64, wbc 19, flow cytometry ordered, off heparin gtt 10/26: in icu still, per rn is off heparin gtt, currently symptoms are better, no fevers or chills noted, on pressor but less 10/27:plt 67, intubated on 1 pressor , but now follows commands, no events 10/28: Pt is intubated, non verbal, no events 10/29: seen by bedside,on vent, HD today, on pressors, abxs per ID, wbc 16, plt 94 10/31: patient is intubated, hgb 8.4, plt 64, no events 11/01: Seen by bedside, HD tomorrow, on abxs per ID, 11/02: intubated, tolerating TF, failed weaning trials, plt remains low, wbc trending down Objective Last 24 Hour Vital Signs Date Time Temp Pulse Resp B/P (MAP) Pulse Ox O2 Delivery O2 Flow Rate FiO2 11/02/18 18:30 115 20 94/43 (60) 100 11/02/18 18:00 106 22 86/38 (54) 100 11/02/18 17:30 109 23 89/41 (57) 100 11/02/18 17:00 108 24 101/44 (63) 100 11/02/18 17:00 109 27 30 11/02/18 16:30 108 26 100/53 (69) 100 11/02/18 16:00 98.2 109 20 85/48 (60) 100 11/02/18 16:00 Mechanical Ventilator 11/02/18 16:00 106 11/02/18 16:00 30 11/02/18 15:30 103 32 81/43 (56) 100 11/02/18 15:11 100 32 30 11/02/18 15:00 105 30 90/42 (58) 100 11/02/18 14:30 99 20 93/37 (55) 99 11/02/18 14:00 98 20 111/50 (70) 99 11/02/18 13:30 99 22 88/40 (56) 99 11/02/18 13:01 105 28 30 11/02/18 13:00 98 26 92/43 (59) 99 11/02/18 12:33 98 20 97/36 (56) 92 11/02/18 12:00 98 11/02/18 12:00 Mechanical Ventilator 11/02/18 12:00 97.6 97 20 86/41 (56) 92 11/02/18 12:00 99 20 81/39 (53) 92 11/02/18 11:30 99 20 81/39 (53) 92 11/02/18 11:01 101 22 88/40 (56) 93 11/02/18 11:00 84/43 11/02/18 11:00 30 11/02/18 10:48 103 33 30 11/02/18 10:30 100 22 84/38 (53) 93 11/02/18 10:00 101 22 84/40 (55) 93 11/02/18 09:30 103 27 79/39 (52) 96 11/02/18 09:00 103 29 85/45 (58) 100 11/02/18 09:00 100 11/02/18 08:57 100 37 30 11/02/18 08:30 103 26 90/44 (59) 100 11/02/18 08:30 30 11/02/18 08:00 30 11/02/18 08:00 Mechanical Ventilator 11/02/18 08:00 102 11/02/18 08:00 97.3 102 26 85/42 (56) 100 11/02/18 07:18 98/50 11/02/18 07:00 105 25 98/50 (66) 100 11/02/18 06:55 106 25 30 11/02/18 06:30 105 26 11/02/18 06:30 100 25 104/45 (64) 100 11/02/18 06:00 106 24 110/45 (66) 100 11/02/18 05:30 105 25 96/45 (62) 100 11/02/18 05:22 108 25 30 11/02/18 05:00 104 25 105/51 (69) 99 11/02/18 04:30 102 24 111/63 (79) 99 11/02/18 04:00 98.6 105 24 101/40 (60) 99 11/02/18 04:00 30 11/02/18 04:00 105 11/02/18 04:00 Mechanical Ventilator 11/02/18 03:30 106 24 100/43 (62) 99 11/02/18 03:00 104 24 107/46 (66) 99 11/02/18 02:47 106 25 30 11/02/18 02:30 104 24 105/47 (66) 99 11/02/18 02:00 102 26 107/45 (65) 99 11/02/18 01:37 99 24 30 11/02/18 01:30 104 20 102/47 (65) 99 11/02/18 01:00 103 20 97/53 (68) 99 11/02/18 00:30 104 20 103/51 (68) 99 11/02/18 00:00 102 11/02/18 00:00 98.2 105 20 108/41 (63) 99 11/02/18 00:00 Mechanical Ventilator 11/02/18 00:00 30 2/25/19 23:30 104 20 99/42 (61) 99 11/01/18 23:19 104 24 30 11/01/18 23:08 93/45 11/01/18 23:00 104 20 88/40 (56) 99 11/01/18 22:30 104 20 110/61 (77) 99 11/01/18 22:00 105 18 103/61 (75) 99 11/01/18 21:30 104 18 103/40 (61) 99 11/01/18 21:00 105 18 122/42 (68) 99 11/01/18 20:36 104 26 30 11/01/18 20:30 104 18 94/44 (61) 100 11/01/18 20:21 104 28 Mechanical Ventilator 30 Intake and Output 11/01/18 11/02/18 18:59 06:59 Intake Total 1030.75 ml 1426.20 ml Output Total 750 ml Balance 1030.75 ml 676.20 ml Free Water 30 ml IV Total 550.75 ml 916.20 ml Tube Feeding 480 ml 480 ml Stool Total 750 ml Laboratory Tests 11/02/18 03:25: White Blood Count 12.5H, Red Blood Count 3.03L, Hemoglobin 8.5L, Hematocrit 27.5L, Mean Corpuscular Volume 91, Mean Corpuscular Hemoglobin 28.2, Mean Corpuscular Hemoglobin Concent 31.0L, Red Cell Distribution Width 24.9H, Platelet Count 60L, Mean Platelet Volume 6.7, Neutrophils (%) (Auto) , Lymphocytes (%) (Auto) , Monocytes (%) (Auto) , Eosinophils (%) (Auto) , Basophils (%) (Auto) , Differential Total Cells Counted 100, Neutrophils % ( Manual) 73, Lymphocytes % (Manual) 7L, Monocytes % (Manual) 3, Eosinophils % ( Manual) 0, Basophils % (Manual) 0, Band Neutrophils 17H, Nucleated Red Blood Cells 1, Platelet Estimate DecreasedL, Platelet Morphology Normal, Polychromasia 2+, Anisocytosis 3+, Indra Cells 1+, Sodium Level 125L, Potassium Level 4.3, Chloride Level 91L, Carbon Dioxide Level 21, Anion Gap 13, Blood Urea Nitrogen 79H, Creatinine 3.5H, Estimat Glomerular Filtration Rate , Glucose Level 212H, Calcium Level 8.2L, Total Bilirubin 5.7H, Direct Bilirubin 4.1H, Aspartate Amino Transf (AST/SGOT) 100H, Alanine Aminotransferase (ALT/SGPT ) 48, Alkaline Phosphatase 237H, Troponin I 1.174H, Total Protein 5.1L, Albumin 1.0L, Globulin 4.1, Albumin/Globulin Ratio 0.2L Height (Feet): 5 Height (Inches): 2.00 Weight (Pounds): 205 Objective PHYSICAL EXAMINATION: VITAL SIGNS: reviewed HEENT: Normocephalic and atraumatic. Mild scleral icterus. NECK: Supple. On vent CARDIOVASCULAR: Tachycardic. Regular rr, Plus S1, S2. There is a soft murmur at the left sternal border. LUNGS: ++ vent ABDOMEN: Distended, tympanic to percussion. Hypoactive bowel sounds. EXTREMITIES: No cyanosis, no clubbing, no edema. NEUROLOGIC: More alert Rah Ferreira MD Nov 02, 2018 20:21
--- NOTE | 2018-11-03 06:38 | Emergency Room Report ---
History of Present Illness General Source: Medical Record, PMD Present Illness Allergies: Coded Allergies: PENICILLINS (Verified Allergy, Unknown, 10/09/18) Nursing Documentation-[facility] Past Medical History: No History, Except For Hx Hypertension: Yes Hx Diabetes: Yes Physical Exam Vital Signs Date Time Temp Pulse Resp B/P (MAP) Pulse Ox O2 Delivery O2 Flow Rate FiO2 10/30/18 07:00 94 7 105/57 (73) 100 10/30/18 08:00 Mechanical Ventilator 10/30/18 08:00 40 10/30/18 08:00 97.3 Medical Decision Making ER Course I was called to pronounce patient after patient had a cardiac arrest. Patient was noted to have DNR status. patient was noted to have asystole at 1925 on . Patient was noted to have absent cardiac activity. Patient was on mechanical ventilation. There is no heart sounds auscultated. Patient was pronounced . Last Vital Signs Date Time Temp Pulse Resp B/P (MAP) Pulse Ox O2 Delivery O2 Flow Rate FiO2 11/02/18 19:25 0 0 0/0 (0) 0 11/02/18 17:00 30 11/02/18 16:00 98.2 11/02/18 16:00 Mechanical Ventilator Condition: Referrals: Dg Key MD (PCP) Winston Montenegro MD Nov 03, 2018 06:38
--- NOTE | 2018-11-11 15:25 | Discharge Summary ---
Discharge Summary Discharge Summary _ SUMMARY DATE OF ADMISSION: 10/09/2018 DATE OF DISCHARGE: 11/02/2018 REASON FOR ADMISSION: 83 years old male with past his extensive past medical history including hypertension, coronary artery disease with history of percutaneous coronary intervention, congestive heart failure with ischemic cardiomyopathy, diastolic heart failure, mitral regurgitation, aortic stenosis, history of percutaneous coronary intervention in April 2016 to LAD with no significant disease in the circumflex and no significant disease in the proximal RCA , diabetes mellitus, peripheral neuropathy, hyperlipidemia, claudication, B12 and vitamin D deficiency, cholecystitis, status post cholecystectomy, presented to the hospital after episode of hypoglycemia. Patient was not feeling well and was transferred by paramedics initially to [facility] for further evaluation. Paramedics found patient hypoglycemic, glucagon was administered , and patient was transported to [place] emergency room . Blood sugar improved in the emergency room along with patient's mentation. Patient required further hospitalization and subsequently was transferred to [facility] for further evaluation and stabilization for insurance reason. Initial ABG revealed evidence of hypercapnia on oxygen via nasal cannula. Patient subsequently was placed on BiPAP. CONSULTANTS: public health dietitian Dr Key neurologist Dr. Johnson pulmonary ID specialist GI specialist Dr. Hawley olive knocker Dr. Alexx Porter assembly line upholsterer/oncologist Dr. Ferreira urologist Dr. Eduardo clinical informatics educator Dr. Schmitt [facility] COURSE: [] Patient admitted to ICU. Patient noted to have abnormal troponin. Per public health dietitian abnormal troponin was of questionable significance in the light of the fact that he felt because of possible exacerbation of congestive heart failure. Patient was taken off diabetic medication because blood sugar were stable. Currently patient seems to be back on anti-glycemic medication and as a result had hypoglycemia. Antiplatelet therapy with aspirin and Plavix and a anti-failure regimen with diuretic ELLIS inhibitor and along with a statin were continued. Elevated d-dimer 4.449. Venous duplex duplex bilateral lower extremity revealed no evidence of acute DVT. Echocardiogram revealed reduced ejection fraction of 35-40% with mild global left ventricular hypokinesis mainly kinesis of the posterior and inferior velázquez and inferior septum a moderate to severe mitral regurgitation noted. Right ventricular systolic pressure of 54 consistent with a moderate pulmonary hypertension mild tricuspid regurgitation noted. Initial chest x-ray demonstrated hypoventilatory lungs mild vascular congestion bibasilar bonbon dipper follow. Supplemental oxygen titrated to keep pulse oximetry above 92%. Patient started on the BiPAP setting titrated based on ABG. FINAL DIAGNOSES: 1. [] I have been assigned to dictate discharge summary for this account. I was not involved in the patient's management. Sarah Rouse NP Nov 11, 2018 15:25
== END 2018-11-02 19:25 | disposition expired | DRG 637 ==
LOC: 2E 19:09 → SDU 10-11 18:50 → ICU 10-11 18:51 → 2W 10-16 04:15 → ICU 10-18 15:41
PROC: B548ZZA Ultrasonography of Superior Vena Cava, Guidance (ICD-10-PCS; principal; 2018-10-13)
PROC: 02HV33Z Insertion of Infusion Device into Superior Vena Cava, Percutaneous Approach (ICD-10-PCS; principal; 2018-10-13)
PROC: 05HP33Z Insertion of Infusion Device into Right External Jugular Vein, Percutaneous Approach (ICD-10-PCS; 2018-10-18)
PROC: 5A1D70Z Performance of Urinary Filtration, Intermittent, Less than 6 Hours Per Day (ICD-10-PCS; 2018-10-18)
PROC: 0BH17EZ Insertion of Endotracheal Airway into Trachea, Via Natural or Artificial Opening (ICD-10-PCS; 2018-10-19)
PROC: 5A1955Z Respiratory Ventilation, Greater than 96 Consecutive Hours (ICD-10-PCS; 2018-10-19)
DX: E09.649 Drug or chemical induced diabetes mellitus with hypoglycemia without coma (principal); I21.A1 Myocardial infarction type 2; G93.41 Metabolic encephalopathy; J96.02 Acute respiratory failure with hypercapnia; A41.9 Sepsis, unspecified organism; R65.21 Severe sepsis with septic shock; J69.0 Pneumonitis due to inhalation of food and vomit; K85.90 Acute pancreatitis without necrosis or infection, unspecified; K72.00 Acute and subacute hepatic failure without coma; I13.0 Hypertensive heart and chronic kidney disease with heart failure and stage 1 through stage 4 chronic kidney disease, or unspecified chronic kidney disease; I50.30 Unspecified diastolic (congestive) heart failure; G81.91 Hemiplegia, unspecified affecting right dominant side; E87.1 Hypo-osmolality and hyponatremia; Z99.11 Dependence on respirator [ventilator] status; N13.39 Other hydronephrosis; N13.4 Hydroureter; R18.8 Other ascites; N13.30 Unspecified hydronephrosis; T38.3X5A Adverse effect of insulin and oral hypoglycemic [antidiabetic] drugs, initial encounter; Y92.9 Unspecified place or not applicable; N18.9 Chronic kidney disease, unspecified; I25.5 Ischemic cardiomyopathy; N17.0 Acute kidney failure with tubular necrosis; Y92.239 Unspecified place in hospital as the place of occurrence of the external cause; Z79.84 Long term (current) use of oral hypoglycemic drugs; I25.10 Atherosclerotic heart disease of native coronary artery without angina pectoris; Z98.61 Coronary angioplasty status; Z85.46 Personal history of malignant neoplasm of prostate; I73.9 Peripheral vascular disease, unspecified; E78.5 Hyperlipidemia, unspecified; I07.1 Rheumatic tricuspid insufficiency; I35.0 Nonrheumatic aortic (valve) stenosis; I27.20 Pulmonary hypertension, unspecified; N28.1 Cyst of kidney, acquired; Y95 Nosocomial condition; D69.6 Thrombocytopenia, unspecified; N50.89 Other specified disorders of the male genital organs; Z66 Do not resuscitate; R13.10 Dysphagia, unspecified; R19.7 Diarrhea, unspecified; K76.0 Fatty (change of) liver, not elsewhere classified
CPT/HCPCS: 36415; 36569; 36600; 70450; 71045; 71250; 74018; 74176; 76700; 76937; 80048; 80053; 80076; 80202; 82140; 82150; 82248; 82270; 82306; 82533; 82607; 82728; 82803; 82947; 82962; 83010; 83540; 83550; 83615; 83690; 83735; 83880; 83970; 84100; 84443; 84484; 85007; 85025; 85044; 85060; 85379; 85384; 85610; 85730; 86308; 86665; 86695; 86703; 86705; 86709; 86803; 86850; 86900; 86901; 86920; 87040; 87070; 87205; 87324; 87340; 87496; 93005; 93306; 93930; 93970; 93971; 94002; 94003; 94640; 94660; 94664; 94760; 95819; J1815; J2405; J7620; J8499; S5561